=== PATIENT | female | born 1955 | race Caucasian/White ===

== ENCOUNTER → 2017-03-31 10:36 | Outpatient (CLI) | payer MEDICARE, SELFPAY ==
[2017-03-31 12:25] LABS: Alanine Aminotransferase 20 U/L (12-78); Albumin Level 3.5 gm/dL (3.4-5.0); Albumin/Globulin Ratio 0.9 (1.1-1.8); Alkaline Phosphatase 105 U/L (46-116); Anion Gap 9.1 mEq/L (5-15); Aspartate Amino Transferase 11 U/L (15-37); Bilirubin,Total 0.2 mg/dL (0.2-1.0); Blood Urea Nitrogen 14 mg/dL (7-18); Calcium 9.4 mg/dL (8.5-10.1); Carbon Dioxide 29 mmol/L (21.0-32.0); Chloride 99 mmol/L (98-107); Chol/HDL Ratio 3.9 (1-3.5); Cholesterol 166 mg/dL (140-200); Creatinine,Serum 0.72 mg/dL (0.55-1.02); Estimated Glomerular Filt Rate 82 ml/min (>60); GFR (African American) 99 ML/MIN (>60); Globulin 3.8 gm/dl (1.3-3.2); Glucose 138 mg/dL (74-106); HDL Cholesterol 43 mg/dL (29-89); Iron 35 ug/dl (28-170); LDL Cholesterol 90 mg/dL (0-130); Potassium 4.1 mmoL/L (3.5-5.1); Sodium 133 mmol/L (136-145); Thyroid Stimulating Hormone 1.93 uIU/ml (0.358-3.740); Total Protein,Serum 7.3 gm/dL (6.4-8.2); Triglycerides 165 mg/dL (30-200); VLDL Cholesterol 33 mg/dL (0-40)
[2017-04-01 20:10] LABS: Folate 4.9 ng/mL (>3.0); Vitamin B12 555 pg/mL (232-1245)
== END ==
PROVIDERS: PCP Family Medicine; Visit Provider Family Medicine
DX: E11.9 Type 2 diabetes mellitus without complications (principal); E78.5 Hyperlipidemia, unspecified; R53.83 Other fatigue; R63.4 Abnormal weight loss
CPT/HCPCS: 36415; 80053; 80061; 82607; 82746; 83036; 83540; 84443

== ENCOUNTER → 2017-05-03 17:36 | Outpatient (REF) | payer MEDICARE, SELFPAY | LOC: LAB 17:36 | PROVIDERS: Visit Provider Urology | DX: R39.89 Other symptoms and signs involving the genitourinary system (principal) | CPT/HCPCS: 87086; 87088; 87186 ==

== ENCOUNTER → 2017-05-09 13:37 | Outpatient (REF) | payer MEDICARE, SELFPAY ==
[2017-05-09 13:40] LABS: Adenovirus F 40/41, stool Not Detected (NotDetected); Astrovirus Not Detected (NotDetected); Campylobacter Not Detected (NotDetected); Cryptosporidium Not Detected (NotDetected); Cyclospora Cayetanesis Not Detected (NotDetected); Entamoeba histolytica Not Detected (NotDetected); Enteroaggregative E coli Not Detected (NotDetected); Enteropathogenic E coli Not Detected (NotDetected); Enterotoxigenic E coli Not Detected (NotDetected); Giardia lamblia Not Detected (NotDetected); Norovirus Not Detected (NotDetected); Plesimonas Shigalloides, PCR Not Detected (NotDetected); Rotavirus A Not Detected (NotDetected); Salmonella, PCR Not Detected (NotDetected); Sapovirus Not Detected (NotDetected); Shiga-like toxin E coli Not Detected (NotDetected); Shigella Enterovasive E coli Not Detected (NotDetected); Vibrio Cholerae Not Detected (NotDetected); Vibrio, PCR Not Detected (NotDetected); Yersinia Entercolitica, PCR Not Detected (NotDetected)
[2017-05-09 18:14] LABS: Clostridium Difficile A/B, PCR Detected (NotDetected)
== END ==
LOC: LAB 13:37
PROVIDERS: Visit Provider Urology
DX: R19.7 Diarrhea, unspecified (principal)
CPT/HCPCS: 87507

== ENCOUNTER 2017-06-11 22:34 | Emergency (ER) | payer MEDICARE, SELFPAY ==
[2017-06-11 22:39] VITALS: BP 118/73; PULSE 71; RESP 20; TEMP 37.8; O2SAT 94; BMI 42.4
--- NOTE | 2017-06-11 22:46 | CT_ITS ---
CT abdomen pelvis wo con COMPARISON: CT scan abdomen pelvis without contrast 06/29/2016 HISTORY: Abdominal pain for one week TECHNIQUE: Multiple axial scans obtained from hemidiaphragms the pelvic floor and were performed without IV or oral contrast. FINDINGS: The lower lung donahue are clear. The liver stomach and pancreas are grossly normal. There has been a previous cholecystectomy. There is borderline splenomegaly. The adrenal glands are normal. The kidneys are normal size and there are no calculi and is no obstructive uropathy. Small bowel is normal. The appendix is normal. There is large amount stool in the cecum and ascending and proximal transverse colon. The uterus is normal size and in the midline. Urinary bladder is partially decompressed, there is no free fluid in the pelvis. There is arteriosclerotic calcification of the abdominal aorta without aneurysm. IMPRESSION: Borderline splenomegaly no acute abdominal or intrapelvic pathology identified, I agree the [facility] report
[2017-06-11 22:58] LABS: Microscopic, Urine URINE MICROSCOPIC (MICROSCOPIC)
[2017-06-11 23:08] LABS: Appearance,Urine CLOUDY (Clear); Blood, Urine Negative (Negative); Color,Urine YELLOW (Yellow); Glucose,Urine (UA) Negative (Negative); Ketones,Urine TRACE (Negative); Leukocyte Esterase,Urine 1+ (Negative); Nitrate,Urine POSITIVE (Negative); PH,Urine 5.5 (5.0-8.5); Protein,Urine TRACE (Negative); Specific Gravity, Urine >= 1.030 (1.005-1.030); Urobilinogen,Urine 0.2 EU/dl (0.2)
[2017-06-11 23:12] LABS: Bilirubin,Urine Negative (Negative)
[2017-06-11 23:13] LABS: Bacteria,Urine 4+ /lpf; Squamous Epithelial Cell,Urine 20-50 #/hpf (0-5); WBC,Urine 50-100 #/hpf (0-3); Waxy Casts,Urine Occasional #/lpf (0)
[2017-06-11 23:33] LABS: Basophils % 0.5 % (0.1-2.0); Eosinophils # 0.1 K/mm3 (0.0-0.4); Eosinophils % 1.4 % (0.1-12.0); Hematocrit 41.4 % (37.0-47.0); Hemoglobin 13.3 g/dL (12.2-16.2); Lymphocytes % 42.1 K/mm3 (10-50); Mean Corpuscular HGB Conc 32.1 g/dL (31.8-35.4); Mean Corpuscular Hemoglobin 27.5 pg (27.0-31.2); Mean Corpuscular Volume 85.7 fl (81-99); Mean Platelet Volume 7.9 fl (7.4-10.4); Monocytes # 0.3 K/mm3 (0.1-1.0); Monocytes % 4.4 % (1.7-9.3); Neutrophils # 3.6 K/mm3 (1.8-7.8); Neutrophils % 51.5 % (37.0-80.0); Platelet Count 202 K/mm3 (142-424); Red Blood Count 4.83 M/mm3 (4.20-5.40); Red Cell Distribution Width 14.5 % (11.5-17.5); White Blood Count 7.1 K/mm3 (4.8-10.8)
[2017-06-11 23:48] LABS: Alanine Aminotransferase 35 U/L (12-78); Albumin Level 3.4 gm/dL (3.4-5.0); Albumin/Globulin Ratio 0.8 (1.1-1.8); Alkaline Phosphatase 181 U/L (46-116); Amylase 16 U/L (25-125); Anion Gap 11.8 mEq/L (5-15); Aspartate Amino Transferase 17 U/L (15-37); Bilirubin,Total 0.2 mg/dL (0.2-1.0); Blood Urea Nitrogen 11 mg/dL (7-18); Calcium 9.1 mg/dL (8.5-10.1); Carbon Dioxide 27 mmol/L (21.0-32.0); Chloride 100 mmol/L (98-107); Creatinine Clearance Estimated 46 mL/min (0-300); Creatinine,Serum 0.76 mg/dL (0.55-1.02); Estimated Glomerular Filt Rate 77 ml/min (>60); GFR (African American) 93 ML/MIN (>60); Globulin 4.5 gm/dl (1.3-3.2); Glucose 126 mg/dL (74-106); Lipase 59 u/L (73-393); Potassium 3.8 mmoL/L (3.5-5.1); Sodium 135 mmol/L (136-145); Total Protein,Serum 7.9 gm/dL (6.4-8.2)
--- NOTE | 2017-06-11 23:54 | HMH.EDNVD ---
ED Disposition Clinical Impression: Abdominal pain Qualifiers: Abdominal location: unspecified location Qualified Code(s): R10.9 - Unspecified abdominal pain UTI (urinary tract infection) Qualifiers: Urinary tract infection type: site unspecified Hematuria presence: without hematuria Qualified Code(s): N39.0 - Urinary tract infection, site not specified Disposition: Home, Self-Care Condition on Discharge: Good Instructions: DI for Acute Abdomen Additional Instructions: call dr khan tuesday am about urine culture and follow up Referrals: Reynold Khan MD [Primary Care Provider] - - Critical Care Critical Care Time: No Attestation: On 06/11/17, the high probability of a clinically significant, sudden or life threatening deterioration of the following system(s) required my full and direct attention, intervention and personal management. The time I documented below is in addition to time spent performing reported procedures but includes the following listed in this critical care notation. Medical Decision Making - Medical Records Medical records reviewed: Yes: I reviewed the patient's medical records. - Saad Inquiry Pt receiving controlled substance: No Vital Signs: 06/11/17 22:39 Temperature 100.0 F H Temperature Source Oral Pulse Rate [Right Radial] 71 Respiratory Rate 20 Blood Pressure [Right Arm] 118/73 Blood Pressure Mean [Right Arm] 88 02 Sat by Pulse Oximetry 94 L - Lab Data Lab results reviewed: Yes: I reviewed the patient's lab results. Lab Results 06/11/17 22:55: Urine Color Yellow, Urine Appearance Cloudy, Urine pH 5.5, Ur Specific [place] >= 1.030, Urine Protein Trace, Urine Glucose (UA) Negative, Urine Ketones Trace, Urine Blood Negative, Urine Nitrate Positive, Urine Bilirubin Negative, Urine Urobilinogen 0.2, Ur Leukocyte Esterase 1+ A, Urine WBC 50-100, Ur Squamous Epith Cells 20-50, Urine Bacteria 4+, Waxy Casts Occasional 06/11/17 23:25: WBC 7.1, RBC 4.83, Hgb 13.3, Hct 41.4, MCV 85.7, MCH 27.5, MCHC 32.1, RDW 14.5, Plt Count 202, MPV 7.9, Neut % (Auto) 51.5, Lymph % (Auto) 42.1, [place] % (Auto) 4.4, Eos % (Auto) 1.4, Baso % (Auto) 0.5, Neut # (Auto) 3.6, Lymph # (Auto) 3.0, [place] # (Auto) 0.3, Eos # (Auto) 0.1, Baso # (Auto) 0.0 06/11/17 23:25: Sodium 135 L, Potassium 3.8, Chloride 100, Carbon Dioxide 27, Anion Gap 11.8, BUN 11, Creatinine 0.76, Estimated Creat Clear 46, Estimated GFR 77, Est GFR ( Amer) 93, Glucose 126 H, Calcium 9.1, Total Bilirubin 0.2, AST 17, ALT 35, Alkaline Phosphatase 181 H, Total Protein 7.9, Albumin 3.4, Globulin 4.5 H, Albumin/Globulin Ratio 0.8 L, Amylase 16 L, Lipase 59 L Result diagrams: 06/11/17 23:25 06/11/17 23:25 Orders (Tests/Meds): ORDERS Category Date Time Status CT abdomen pelvis wo con Stat Cat Scan 06/11/17 22:46 Taken Urine Culture Stat Micro 06/11/17 22:55 Received - CT Data CT Scan: Abdomen, Pelvis Time Received: 00:[address] Reviewed: Yes: I have viewed the radiologist's interpretation Preliminary Findings: Normal/NAD - Physician Consults Physician Consulted: meir Reason -: Pt condition Nausea/Vomiting/Diarrhea HPI - General Chief complaint: Abdominal Pain Stated complaint: Stomach Pain Time Seen by Provider: 06/11/17 23:55 Mode of Arrival: Wheelchair Source of Information: Patient, Relative, Medical Record Limitations: Physical Limitations Description of Symptoms (Recalled from ER Triage Doc. by RN): pt states she is having abdominal pain, pt also c/o thrush. pt states she has been on antibx for her kidneys and her colon. - History of Present Illness HPI Narrative: pt with 4-5 day hx of abd pain and bloating with no fever or rash and no vomiting or diarrhea -she was on abx in recent past - she uses chronic pain meds complaint: nausea, abdominal pain Onset (ago): day(s) Associated Abdominal Pain: Yes Location of pain: periumbilical Severity: moderate Quality: sharp Consistency:
--- NOTE | 2017-06-12 00:03 | ED_ITS ---
ED Disposition Clinical Impression: Abdominal pain Qualifiers: Abdominal location: unspecified location Qualified Code(s): R10.9 - Unspecified abdominal pain UTI (urinary tract infection) Qualifiers: Urinary tract infection type: site unspecified Hematuria presence: without hematuria Qualified Code(s): N39.0 - Urinary tract infection, site not specified Disposition: Home, Self-Care Condition on Discharge: Good Instructions: DI for Acute Abdomen Additional Instructions: call dr khan tuesday am about urine culture and follow up Referrals: Reynold Khan MD [Primary Care Provider] - - Critical Care Critical Care Time: No Attestation: On 06/11/17, the high probability of a clinically significant, sudden or life threatening deterioration of the following system(s) required my full and direct attention, intervention and personal management. The time I documented below is in addition to time spent performing reported procedures but includes the following listed in this critical care notation. Medical Decision Making - Medical Records Medical records reviewed: Yes: I reviewed the patient's medical records. - Saad Inquiry Pt receiving controlled substance: No Vital Signs: 06/11/17 22:39 Temperature 100.0 F H Temperature Source Oral Pulse Rate [Right Radial] 71 Respiratory Rate 20 Blood Pressure [Right Arm] 118/73 Blood Pressure Mean [Right Arm] 88 02 Sat by Pulse Oximetry 94 L - Lab Data Lab results reviewed: Yes: I reviewed the patient's lab results. Lab Results 06/11/17 22:55: Urine Color Yellow, Urine Appearance Cloudy, Urine pH 5.5, Ur Specific [place] >= 1.030, Urine Protein Trace, Urine Glucose (UA) Negative, Urine Ketones Trace, Urine Blood Negative, Urine Nitrate Positive, Urine Bilirubin Negative, Urine Urobilinogen 0.2, Ur Leukocyte Esterase 1+ A, Urine WBC 50-100, Ur Squamous Epith Cells 20-50, Urine Bacteria 4+, Waxy Casts Occasional 06/11/17 23:25: WBC 7.1, RBC 4.83, Hgb 13.3, Hct 41.4, MCV 85.7, MCH 27.5, MCHC 32.1, RDW 14.5, Plt Count 202, MPV 7.9, Neut % (Auto) 51.5, Lymph % (Auto) 42.1 , [place] % (Auto) 4.4, Eos % (Auto) 1.4, Baso % (Auto) 0.5, Neut # (Auto) 3.6, Lymph # (Auto) 3.0, [place] # (Auto) 0.3, Eos # (Auto) 0.1, Baso # (Auto) 0.0 06/11/17 23:25: Sodium 135 L, Potassium 3.8, Chloride 100, Carbon Dioxide 27, Anion Gap 11.8, BUN 11, Creatinine 0.76, Estimated Creat Clear 46, Estimated GFR 77, Est GFR ( Amer) 93, Glucose 126 H, Calcium 9.1, Total Bilirubin 0.2, AST 17, ALT 35, Alkaline Phosphatase 181 H, Total Protein 7.9, Albumin 3.4 , Globulin 4.5 H, Albumin/Globulin Ratio 0.8 L, Amylase 16 L, Lipase 59 L Result diagrams: 06/11/17 23:25 06/11/17 23:25 Orders (Tests/Meds): ORDERS Category Date Time Status CT abdomen pelvis wo con Stat Cat Scan 06/11/17 22:46 Taken Urine Culture Stat Micro 06/11/17 22:55 Received - CT Data CT Scan: Abdomen, Pelvis Time Received: 00:[address] Reviewed: Yes: I have viewed the radiologist's interpretation Preliminary Findings: Normal/NAD - Physician Consults Physician Consulted: meir Reason -: Pt condition Nausea/Vomiting/Diarrhea HPI - General Chief complaint: Abdominal Pain Stated complaint: Stomach Pain Time Seen by Provider: 06/11/17 23:55 Mode of Arrival: Wheelchair Source of Information: Patient, Relative, Medical Record Limitations: Physical Limitations Description of Symptoms (Recalled from ER
[2017-06-12 00:50] VITALS: BP 134/70; PULSE 87; RESP 20; TEMP 37.1; O2SAT 99
== END 2017-06-12 00:55 | disposition home or self-care (01) ==
PROVIDERS: Emergency Provider Emergency Medicine; Family Provider Family Medicine; PCP Family Medicine
DX: N39.0 Urinary tract infection, site not specified (principal); Z79.84 Long term (current) use of oral hypoglycemic drugs; Z79.82 Long term (current) use of aspirin; J45.909 Unspecified asthma, uncomplicated; J44.9 Chronic obstructive pulmonary disease, unspecified; E78.5 Hyperlipidemia, unspecified; D64.9 Anemia, unspecified; F17.210 Nicotine dependence, cigarettes, uncomplicated; R10.33 Periumbilical pain
CPT/HCPCS: 74176; 80053; 81001; 82150; 83690; 85025; 87086; 87088; 87186; 96374; 96375; 99283; J2405

== ENCOUNTER → 2018-06-30 14:14 | Outpatient (CLI) | payer MEDICARE, SELFPAY ==
--- NOTE | 2018-06-30 14:20 | MM_ITS ---
MM Dig screening mamm BI w/CAD ORDERING PHYSICIAN : Reynold Khan MD PATIENT AGE: 62 years GENDER: Female COMPARISON: Bilateral mammogram March 2010 & June 2008 & A November 2007. & September 2006 INDICATION: Routine SCREENING no hormones. No new complaints Previous benign excisional biopsy/ lumpectomy right breast TECHNIQUE: Standard CC and MLO images were obtained. R2 CAD reviewed. Additional CC nipple profile views of bilaterally are quite helpful FINDINGS: There has been some progressive fatty replacement since previous studies of 2010, and 2008. Again see the fairly pronounced asymmetry of the breast . I believe there likely within a previous biopsy mid right breast RIGHT BREAST: Area Labeled A: Focal area of density medial right breastpresent since 2008 & more recent March 2010 study... It disappears/dissipates on the additional nipple profile cc view from today, which is very helpful. Thus follow-up in one year adequate with this latter nipple profile cc Area labeled B: Small 1 cm nodule at far lateral right breast is a long-standing feature is since at least 2008 & 2006 can be followed.. LEFT BREAST:. No new findings. Asymmetric area of density at the medial retroareolar left breast labeled X dissipates on the additional CC nipple profile =======IMPRESSION: . Stable areas of density at both right and left breast . No significant new areas concern Bilateral follow-up in one year would be recommended. & And would be encouraged/emphasized BI-RADS Category: 2 Benign Finding(s) RECOMMENDED FOLLOW-UP: 1YR 1 YEAR FOLLOW-UP (A letter has been sent to the patient regarding results of the study.)
--- NOTE | 2018-06-30 14:20 | XR_ITS ---
DEXA SCAN.-BONE DENSITY STUDY HIPS AND LUMBAR SPINE HISTORY: 62-year-old Postmenopausal female . .. Smoker low calcium intake takes levothyroxine Reports recurrent diarrhea TECHNIQUE: DEXA scan hip and lumbar spine The most complete data summary and color graphic presentation of the today's ( and any prior ) DEXA findings are available in PACS. Definition and treatment guidelines included. COMPARISON: None listed LUMBAR SPINE: Overall osteopenia lumbar spine with overall mean L1-L4 T score = -1.4 with BMD 1.016. Looking at individual levels the lowest T score at L2 vertebral body. With T score -2.2 with BMD0.939 g/cm sq , this reflects most pronounced osteopenia at this L2 level. HIPS: All regions average together yields normal Overall Mean Hip T Score = -0.8: with BMD 0.909 = overall normal bone density Femoral neck density is best predictor of hip fracture risk . Right femoral neck demonstrates the lowest T score -1.9 with BMD0.775 g/cm sq . . IMPRESSION 1. LUMBAR SPINE: Overall T score -1.4 lumbar spine, reflects overall osteopenia lumbar region Lowest individual lumbar vertebral bone density is at L2 with T score -2.2 2. HIPS: Overall normal bone density at hips with overall T hip score = -0.8 . Osteopenia right femoral neck noted T score = -1.9. WHO criteria for post-menopausal, Women: Normal: T-score at or above -1 SD Osteopenia: T-score between -1 and -2.5 SD Osteoporosis: T-score at or below -2.5 SD
--- NOTE | 2018-06-30 15:07 | CT_ITS ---
EXAM: CT LUNG LOW DOSE WO CONTRAST TECHNIQUE: The exam was performed on a GE Light Speed [address] scanner using 3.0 mGy CTDI. A low dose helical CT CHEST was performed on a multi-detector scanner. All CT scans at this facility use one or more dose reduction techniques, viz.: automated exposure control, ma/kV adjustment per patient size (including targeted exams where dose is matched to indication, i.e. head) or iterative reconstruction technique. The LDCT was performed in a facility that meets the criteria for the screening program. Data regarding this exam was submitted to ACR which is an approved registry. The order for this exam indicates that it came as a result of a lung cancer screening counseling shard decision-making visit that included all the elements required of such a visit including smoking cessation. The radiologist interpreting this exam meets the [facility] criteria for the LDCT lung cancer screening program. The exam is reported using the Lung-RADS classification scale and reported to the ACR registry. NOTE: This study was performed for the specific purposes of lung cancer screening and is not an alternative to diagnostic chest CT. RADIATION DOSE: CTDI vol(CT dose Index-volume) = 2.9mGy DLP (Dose Length Product) = 96.38 mGy-cm HISTORY: 1 pack per day for 45 years June 45 pack-year. Currently smoking. Patient asymmetric with no signs no symptoms of lung cancer COMPARISON: CT cervical spine August [address] abdomen 06/11/2017 includes lung bases. FINDINGS:... . LUNG NODULE SURVEY. Only Benign granuloma nodules Lung-RADS (Category2): . A small 4 mm calcified granuloma granulomas seen towards right lung base axial image 54. Not of concern. Apices are are unchanged since the previous CT C-spine 2016.] Lungs are better expanded and clear on today's study No suspicious or significant appearing lung mass or lesion. No acute cardiopulmonary disease. LUNG PARENCHYMA. Mild emphysematous changes. Mild emphysematous changes. Upper normal thickness central airways. MEDIASTINUM./VIEVK No significant mediastinal adenopathy or mass. No hilar adenopathy. Heart is normal in size, with dense coronary artery calcification involving LAD, circumflex minimal calcification right coronary. No pericardial effusion Aorta normal caliber. Pulmonary arteries upper normal. Calcification origin of the right innominate Upper abdomen. No significant findings. Spleen generous but normal and stable overall. Osseous no significant findings. No osseous lesion. Mild degenerative changes T-spine No other pertinent findings evident === IMPRESSION:== 1. Lung RADS Category: 2 benign findings .... Only benign granulomatous nodules observed ... No suspicious nodule or mass 2.... Mild emphysematous changes and COPD 3. Coronary calcification most evident LAD and circumflex.: . RECOMMENDATIONS: 12 monthd LDCT follow-up ======
== END ==
PROVIDERS: PCP Family Medicine; Visit Provider Family Medicine
DX: Z12.31 Encounter for screening mammogram for malignant neoplasm of breast (principal); Z78.0 Asymptomatic menopausal state; Z12.2 Encounter for screening for malignant neoplasm of respiratory organs; Z87.891 Personal history of nicotine dependence
CPT/HCPCS: 77067; 77080

== ENCOUNTER → 2018-07-14 11:50 | Outpatient (CLI) | payer MEDICARE, SELFPAY ==
--- NOTE | 2018-07-14 11:55 | NM_ITS ---
CARDIOLITE SPECT MYOCARDIAL PERFUSION LEXISCAN, REST AND STRESS: History: Obesity, hypertension, diabetes, tobacco use, family history, shortness of breath and syncope Procedure: Patient received a 0.4 mg of intravenous Lexiscan, resting heart rate was 80 bpm resting blood pressure 124/65, with Lexiscan maximum heart rate achieved was 1 03 bpm which is less than 85% of the maximum predicted heart rate and a blood pressure was 129/56. With Lexiscan no symptoms recorded. Electrocardiogram: Resting electrocardiogram showed sinus nonspecific ST-T changes, with Lexiscan there is less than 1.[address] segment depression noted from the baseline EKG. The EKG portion of the Lexiscan Myoview is nondiagnostic. Cardiac stress and resting SPECT images: Cardiac stress and resting SPECT images were obtained using technetium 99 Myoview 30.5 mCi stress and 10.3 mCi rest, gated SPECT further analysis of segmental wall motion and calculation of the ejection fraction also done. Cardiac stress and resting SPECT images show uniform myocardial activity without segmental perfusion abnormality, computer derived ejection fraction is 65% no regional wall motion abnormality, right ventricle is normal size and contractility. Conclusion: 1. The EKG portion of the Lexiscan Myoview is nondiagnostic. 2. No scintigraphic evidence of reversible ischemia seen, computer derived ejection fraction is 65% with no regional wall motion abnormality, right ventricle is normal size and contractility. 3. Normal Lexiscan Myoview study.
== END ==
PROVIDERS: PCP Family Medicine; Visit Provider Family Medicine
DX: R06.02 Shortness of breath (principal)
CPT/HCPCS: 78452; 93017; A9502; J2785

== ENCOUNTER → 2018-09-11 14:27 | Outpatient (POV) | payer MEDICARE, SELFPAY | PROVIDERS: PCP Family Medicine; Visit Provider Nurse Practitioner Family | DX: Z00.00 Encounter for general adult medical examination without abnormal findings (principal) ==

== ENCOUNTER → 2018-09-14 14:00 | Outpatient (CLI) | payer MEDICARE, SELFPAY ==
[2018-09-15 15:44] LABS: Adenovirus F 40/41, stool Not Detected (NotDetected); Astrovirus Not Detected (NotDetected); Campylobacter Not Detected (NotDetected); Clostridium Difficile A/B, PCR Not Detected (NotDetected); Cryptosporidium Not Detected (NotDetected); Cyclospora Cayetanesis Not Detected (NotDetected); Entamoeba histolytica Not Detected (NotDetected); Enteroaggregative E coli Not Detected (NotDetected); Enteropathogenic E coli Not Detected (NotDetected); Enterotoxigenic E coli Not Detected (NotDetected); Giardia lamblia Not Detected (NotDetected); Norovirus Not Detected (NotDetected); Plesimonas Shigalloides, PCR Not Detected (NotDetected); Rotavirus A Not Detected (NotDetected); Salmonella, PCR Not Detected (NotDetected); Sapovirus Not Detected (NotDetected); Shiga-like toxin E coli Not Detected (NotDetected); Shigella Enterovasive E coli Not Detected (NotDetected); Vibrio Cholerae Not Detected (NotDetected); Vibrio, PCR Not Detected (NotDetected); Yersinia Entercolitica, PCR Not Detected (NotDetected)
== END ==
PROVIDERS: Visit Provider Nurse Practitioner Family
DX: R19.4 Change in bowel habit (principal); R13.10 Dysphagia, unspecified; R11.2 Nausea with vomiting, unspecified; R10.84 Generalized abdominal pain; R19.7 Diarrhea, unspecified
CPT/HCPCS: 87506

== ENCOUNTER → 2018-09-15 15:47 | Outpatient (CLI) | payer MEDICARE, SELFPAY ==
[2018-09-15 16:00] LABS: Basophils # 0.1 K/mm3 (0-0.2); Basophils % 0.7 % (0.1-2.0); Eosinophils # 0.1 K/mm3 (0.0-0.4); Eosinophils % 1.4 % (0.1-12.0); Hematocrit 44.7 % (37.0-47.0); Hemoglobin 14.1 g/dL (12.2-16.2); Lymphocytes # 2.9 K/mm3 (0.7-4.5); Lymphocytes % 39.7 % (10-50); Mean Corpuscular HGB Conc 31.5 g/dL (31.8-35.4); Mean Corpuscular Hemoglobin 28.2 pg (27.0-31.2); Mean Corpuscular Volume 89.6 fl (81-99); Mean Platelet Volume 8.8 fl (7.4-10.4); Monocytes # 0.2 K/mm3 (0.1-1.0); Monocytes % 2.4 % (1.7-9.3); Neutrophils % 55.7 % (37.0-80.0); Platelet Count 216 K/mm3 (142-424); Red Blood Count 4.99 M/mm3 (4.20-5.40); Red Cell Distribution Width 15.3 % (11.5-17.5); White Blood Count 7.2 K/mm3 (4.8-10.8)
[2018-09-15 16:32] LABS: Albumin Level 3.4 gm/dL (3.4-5.0); Albumin/Globulin Ratio 0.9 (1.1-1.8); Bilirubin,Total 0.2 mg/dL (0.2-1.0); Total Protein,Serum 7.4 gm/dL (6.4-8.2)
[2018-09-15 16:43] LABS: Alanine Aminotransferase 29 U/L (12-78); Alkaline Phosphatase 136 U/L (46-116); Anion Gap 11.9 mEq/L (5-15); Aspartate Amino Transferase 15 U/L (15-37); Blood Urea Nitrogen 8 mg/dL (7-18); Calcium 8.7 mg/dL (8.5-10.1); Carbon Dioxide 29 mmol/L (21.0-32.0); Chloride 103 mmol/L (98-107); Creatinine,Serum 0.86 mg/dL (0.55-1.02); Estimated Glomerular Filt Rate 66 ml/min (>60); GFR (African American) 80 ML/MIN (>60); Glucose 165 mg/dL (74-106); Potassium 3.9 mmoL/L (3.5-5.1); Sodium 140 mmol/L (136-145)
== END ==
PROVIDERS: Visit Provider Nurse Practitioner Family
DX: R19.4 Change in bowel habit (principal); R13.10 Dysphagia, unspecified; R11.2 Nausea with vomiting, unspecified; R10.84 Generalized abdominal pain; R19.7 Diarrhea, unspecified
CPT/HCPCS: 36415; 80053; 85025

== ENCOUNTER → 2018-09-19 13:39 | Outpatient (CLI) | payer MEDICARE, SELFPAY ==
--- NOTE | 2018-09-19 13:43 | CA_ITS ---
PROCEDURE: 2-D M-mode and color Doppler study INDICATIONS FOR THE TEST: Chest pain COPD+ Heart Murmur Tobacco Smoking+ Palpitations Fatigue Syncope Edema Hypertension+Diabetes Mellitus+ Rheumatic Fever SOB CARDENAS+Obesity Hyperlipidemia+ Family History HD Additional History PATIENT INFORMATION HEIGHT: 61 WEIGHT:224 GENDER: Female B/P:114/69 2-D/M-MODE INTERPRETATION: 2-D MEASUREMENTS OBSERVED VALUES IN CMS Right Ventricular Dimension (RVDd) 2.1 Interventricular Septum (Thickness)(IVsd) 1.4 Left Ventricular Internal Dimensions(LVIDd) 4.0 Left Ventricular Posterior Wall (Thickness)(LVPWd) 0.9 Aortic Root 3.0 Aortic Cusp Separation 2.1 Left Atrial Dimensions (LAD) 2.9 2D 1. Left atrium is mildly enlarged, left ventricle is normal size, mild concentric left ventricular hypertrophy, visually estimated ejection fraction 55% with no regional wall motion abnormality. 2. The right atrium and right ventricle are mildly enlarged with normal contractility. 3. The aortic valve is minimally thickened and fibrosed. 4. The mitral and tricuspid valve leaflets are minimally thickened 5. The pulmonic valve is poorly visualized. 6. No significant pericardial effusion noted. DOPPLER INTERROGATION: Doppler interrogation of the aortic, mitral and tricuspid valvular presence of mild mitral and tricuspid regurgitation, tricuspid regurgitation jet velocity is inadequate for calculation of the right ventricular systolic pressure, grade 1 diastolic dysfunction seen with tissue Doppler evidence of raised left atrial pressure. CONCLUSION: 1. Technically difficult study because of the patient's factors and poor acoustic windows 2. Mildly enlarged left atrium, normal left ventricular size, mild concentric left ventricular hypertrophy, visually estimated ejection fraction 55% with no regional wall motion abnormality, grade 1 diastolic dysfunction seen with tissue Doppler evidence of raised left atrial pressure. 3. Mildly enlarged right ventricle with normal contractility. 4. Mild mitral and tricuspid regurgitation. 5. No significant pericardial effusion noted.
--- NOTE | 2018-09-19 13:44 | CI_ITS ---
Cerebrovascular Exam Indications: 780.2 Syncope and collapse. 780.4 Dizziness and giddiness. IMPRESSIONS 1. The bilateral vertebral arteries are patent with normal antegrade flow. 2. Study suggests less than 20% stenosis involving the right internal carotid artery. 3. Study suggests less than 20% stenosis involving the left internal carotid artery. History: Stroke. Risk factors: Hypertension. Diabetes mellitus. Carotid duplex study. Complete study and Doppler flow study including spectral analysis, color and silva scale imaging. Height: Height: 157.5cm. Height: 62in. Weight: Weight: 101.6kg. Weight: 223.5lb. Body mass index: BMI: 41kg/m^2. Body surface area: BSA: 2.16m^2. Location: Vascular laboratory. Patient status: Outpatient. Tables: Arterial flow: + +--------+--------+ Location V sys V ed + +--------+--------+ Right CCA - proximal 78.1cm/s 17cm/s + +--------+--------+ Right CCA - distal 68.9cm/s 15.6cm/s + +--------+--------+ Right ECA 72.8cm/s 15.1cm/s + +--------+--------+ Right ICA - proximal 44.5cm/s 15.6cm/s + +--------+--------+ Right ICA - mid 43.7cm/s 11.9cm/s + +--------+--------+ Right ICA - distal 76.4cm/s 28.2cm/s + +--------+--------+ Right vertebral 47.1cm/s 15.3cm/s + +--------+--------+ Left CCA - proximal 84.9cm/s 18cm/s + +--------+--------+ Left CCA - distal 76.9cm/s 14.7cm/s + +--------+--------+ Left ECA 62.3cm/s 14.1cm/s + +--------+--------+ Left ICA - proximal 39.1cm/s 13.7cm/s + +--------+--------+ Left ICA - mid 59cm/s 20.2cm/s + +--------+--------+ Left ICA - distal 55.7cm/s 18.6cm/s + +--------+--------+ Left vertebral 35.3cm/s 9.5cm/s + +--------+--------+ Velocity ratios: + + + + + + Right, V sys Right, V ed Left, V sys Left, V ed + + + + + + Max ICA/dist CCA 1.11 1.81 0.77 1.37 + + + + + + (Report amended ) Electronically signed by: Kofi Landis [id number]
== END ==
PROVIDERS: PCP Family Medicine; Visit Provider Family Medicine
DX: R06.09 Other forms of dyspnea (principal); R55 Syncope and collapse
CPT/HCPCS: 93306; 93880

== ENCOUNTER → 2018-09-22 08:47 | Outpatient (CLI) | payer MEDICARE, SELFPAY ==
--- NOTE | 2018-09-22 09:04 | CT_ITS ---
CT abdomen pelvis w con CLINICAL HISTORY: Abdominal discomfort, some nausea and vomiting TECHNIQUE: Axial images obtained with sagittal and coronal reformats. All CT scans at the facility use one or more dose reduction, viz: automated exposure control, ma/kV adjustment per patient size (including targeted exams where dose is matched to indication, i.e. head), or iterative reconstruction technique. COMPARISON: CT scan abdomen and pelvis without IV or oral contrast 06/11/2017 PROCEDURE: Oral Contrast:Redicat given IV Contrast: 75 ml IV Optiray 350 was injected intravenously. FINDINGS: Lung bases: Clear, there is no pleural fluid ABDOMEN: Liver: No masses or biliary dilatation. Gallbladder: Postcholecystectomy the common bile duct measures up to 1.3 cm in diameter but there is normal tapering of the ampullary portion without obvious retained stone or extrinsic mass noted. There is no intrahepatic biliary ductal dilatation noted. Pancreas: No masses or peripancreatic fluid collections. Spleen: There is stable borderline splenomegaly Adrenals: Unremarkable Kidneys/ureters: The kidneys are normal size and show symmetrical function following injection of contrast. Stomach bowel: The stomach duodenum and small bowel appear grossly normal. There are scattered stool and gas mixed with oral contrast throughout the colon. Peritoneum: No abnormal fluid collections. No obvious inflammatory changes. Lymph nodes: No enlarged lymph nodes apparent. Vasculature: There is moderate arteriosclerotic calcification of the lower abdominal aorta just above the bifurcation but there is no aneurysm. Bones: There are mild degenerative changes of the thoracolumbar junction and L5-S1 level. PELVIS: Reproductive: Unremarkable Bladder: Moderately decompressed, there is no free fluid in the pelvis Appendix: Not definitely visualized but there are no pericecal inflammatory changes. IMPRESSION: Stable borderline splenomegaly, stable mild common bile duct dilatation not unexpected following previous cholecystectomy
== END ==
PROVIDERS: PCP Family Medicine; Visit Provider Nurse Practitioner Family
DX: R19.4 Change in bowel habit (principal); R13.10 Dysphagia, unspecified; R11.2 Nausea with vomiting, unspecified
CPT/HCPCS: 74177; Q9967

== ENCOUNTER → 2018-10-19 08:44 | Outpatient (CLI) | payer MEDICARE, SELFPAY ==
--- NOTE | 2018-10-19 08:51 | US_ITS ---
US abdomen limited History:Upper abdominal pain Ordering Physician:Berkley Carreon APRN Patient Age: 63 years Comparison:None Findings: Pancreas:Unremarkable. No obvious mass or abnormal fluid collection. No ductal dilatation Liver:Unremarkable. No obvious mass or abnormal fluid collection. No ductal dilatation. Right Kidney:Unremarkable. Normal size and echogenicity. No hydronephrosis Gallbladder:Prior cholecystectomy. Common bile duct is normal at 5 mm. Impression:Status post cholecystectomy otherwise negative
== END ==
PROVIDERS: PCP Family Medicine; Visit Provider Nurse Practitioner Family
DX: R94.5 Abnormal results of liver function studies (principal); R10.84 Generalized abdominal pain
CPT/HCPCS: 76705

== ENCOUNTER → 2018-12-08 15:14 | Outpatient (CLI) | payer MEDICARE, SELFPAY ==
--- NOTE | 2018-12-08 15:24 | XR_ITS ---
PROCEDURE: XR LUMBAR SPINE MIN 4V CLINICAL INDICATION: SPONDYLOSIS LUMBAR REGION, left-sided low back pain COMPARISON: LS5 LUMBAR SPINE 5 VIEWS from 09/07/2016 FINDINGS: Normal alignment. No fracture or dislocation. There is mild degenerative disc disease at L5-S1 and there is mild lumbar curvature convex left. Endplate osteophytes are present at L2-L3.. There is generalized vascular calcification. IMPRESSION: Degenerative changes, no change with no acute finding. Dictated by: Kofi Landsi MD 12/08/2018 16:07 Electronically signed by Kofi Landis MD in [place] 12/08/2018 16:07
== END ==
PROVIDERS: PCP Family Medicine; Visit Provider Family Medicine
DX: M47.816 Spondylosis without myelopathy or radiculopathy, lumbar region (principal)
CPT/HCPCS: 72110

== ENCOUNTER → 2018-12-28 13:21 | Outpatient (CLI) | payer MEDICARE, SELFPAY ==
--- NOTE | 2018-12-28 13:24 | MR_ITS ---
PROCEDURE: MR HEAD/BRAIN WO CON CLINICAL INDICATION: MEMORY LOSS, LT SIDED SCIATICA Memory loss, headaches, blurred vision, dizziness COMPARISON: HDWO CT HEAD W/O CONTRAST from 09/09/2016 TECHNIQUE: Routine multiplanar multi echo sequences are performed without gadolinium enhancement. FINDINGS: No midline shift, mass effect, intracranial hemorrhage, or hydrocephalus is evident. There is mild generalized atrophy. The cerebellopontine angle, cerebellum, and brainstem are unremarkable. Normal silva-white matter differentiation with no significant white matter abnormalities apparent. No sinus air-fluid level. There is small amount fluid in the mastoid sinuses on both sides. Partial empty sella is present as a normal variant. The optic chiasm, corpus callosum, and craniocervical junction have an unremarkable appearance. IMPRESSION: 1. Mild generalized atrophy, no acute intracranial findings. 2. Bilateral mastoid sinus disease Dictated by: Kofi Landis MD 12/28/2018 18:07 Electronically signed by Kofi Landis MD in [place] 12/30/2018 07:17
--- NOTE | 2018-12-28 13:24 | MR_ITS ---
PROCEDURE: MR LUMBAR SPINE WO CON CLINICAL INDICATION: MEMORY LOSS, LT SIDED SCIATICA Left-sided low back pain with left leg and foot pain and numbness and tingling COMPARISON: XR LUMBAR SPINE MIN 4V from 12/08/2018 TECHNIQUE: Standard multiplanar multiecho sequences are performed without contrast. 3-D MIP and myelographic images are also rendered and reviewed FINDINGS: There is normal alignment. The spinal cord ends at the L1 level. 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 L1-L2: Minimal right paracentral disc protrusion. L2-L3: Unremarkable. L3-L4: Unremarkable. L4-5: Mild facet and ligamentum hypertrophy with mild bilateral lateral recess narrowing. L5-S1: Mild facet ligamentum hypertrophy with mild bilateral lateral recess narrowing. There is moderate left-sided foraminal narrowing. No disc herniation. There is some mild transverse narrowing of the canal at L5 5 S1. IMPRESSION: 1. Minimal right paracentral disc protrusion at L1-L2 2. L4-5: Mild facet and ligamentum hypertrophy with mild bilateral lateral recess narrowing. 3. L5-S1: Mild facet ligamentum hypertrophy with mild bilateral lateral recess narrowing. There is moderate left-sided foraminal narrowing 4. No extruded herniated disc Dictated by: Kofi Landis MD 12/29/2018 06:29 Electronically signed by Kofi Landis MD in [place] 12/29/2018 06:29
== END ==
PROVIDERS: PCP Family Medicine; Visit Provider Family Medicine
DX: M54.32 Sciatica, left side (principal); R41.3 Other amnesia
CPT/HCPCS: 70551; 72148; 76376

== ENCOUNTER → 2019-01-01 11:36 | Outpatient (POV) | payer MEDICARE, SELFPAY | PROVIDERS: PCP Family Medicine; Visit Provider Nurse Practitioner Family | DX: Z00.00 Encounter for general adult medical examination without abnormal findings (principal) ==

== ENCOUNTER → 2019-01-15 15:31 | Outpatient (CLI) | payer MEDICARE, SELFPAY ==
[2019-01-15 16:23] LABS: Basophils # 0.1 K/mm3 (0-0.2); Basophils % 0.7 % (0.1-2.0); Eosinophils # 0.1 K/mm3 (0.0-0.4); Eosinophils % 0.9 % (0.1-12.0); Hematocrit 40.7 % (37.0-47.0); Hemoglobin 13.1 g/dL (12.2-16.2); Lymphocytes # 2.4 K/mm3 (0.7-4.5); Lymphocytes % 37.8 % (10-50); Mean Corpuscular Hemoglobin 28.5 pg (27.0-31.2); Mean Corpuscular Volume 88.8 fl (81-99); Mean Platelet Volume 8.2 fl (7.4-10.4); Monocytes # 0.2 K/mm3 (0.1-1.0); Monocytes % 3.4 % (1.7-9.3); Neutrophils # 3.7 K/mm3 (1.8-7.8); Neutrophils % 57.2 % (37.0-80.0); Platelet Count 170 K/mm3 (142-424); Red Blood Count 4.59 M/mm3 (4.20-5.40); Red Cell Distribution Width 13.7 % (11.5-17.5); White Blood Count 6.4 K/mm3 (4.8-10.8)
[2019-01-15 16:33] LABS: INR 1.02 (0.9-1.1); Prothrombin Time 10.6 seconds (9.4-11.8)
[2019-01-15 18:34] LABS: Alanine Aminotransferase 6 U/L (12-78); Albumin Level 3.3 gm/dL (3.4-5.0); Albumin/Globulin Ratio 0.8 (1.1-1.8); Alkaline Phosphatase 86 U/L (46-116); Anion Gap 12.9 mEq/L (5-15); Aspartate Amino Transferase 5 U/L (15-37); Bilirubin,Total 0.2 mg/dL (0.2-1.0); Blood Urea Nitrogen 9 mg/dL (7-18); Calcium 9.1 mg/dL (8.5-10.1); Carbon Dioxide 29 mmol/L (21.0-32.0); Chloride 102 mmol/L (98-107); Creatinine,Serum 0.63 mg/dL (0.55-1.02); Estimated Glomerular Filt Rate 95 ml/min (>60); Ferritin 10 ng/mL (8-388); GFR (African American) 115 ML/MIN (>60); Glucose 117 mg/dL (74-106); Potassium 3.9 mmoL/L (3.5-5.1); Sodium 140 mmol/L (136-145); Total Protein,Serum 7.3 gm/dL (6.4-8.2)
[2019-01-17 08:14] LABS: Ceruloplasmin 29.5 mg/dL (19.0-39.0); Immunoglobulin A, Qn 378 mg/dL (87-352); Immunoglobulin G, Qn 1248 mg/dL (700-1600); Iron 27 ug/dL (27-139); Iron Saturation 8 % (15-55); UIBC 328 ug/dL (118-369)
[2019-01-17 10:34] LABS: Hep A Ab, IgM Negative (Negative); Hepatitis B Core Antibody IgM Negative (Negative); Hepatitis B Surface Antigen Negative (Negative)
[2019-01-17 16:23] LABS: Angiotensin Converting Enzyme 37 U/L (14-82)
[2019-01-18 11:06] LABS: Actin (Smooth Muscle) Antibody 29 Units (0-19); Antinuclear Antibodies, IFA Negative (.); Deamidated Gliadin Abs, IgA 57 units (0-19); Deamidated Gliadin Abs, IgG 4 units (0-19); Endomysial IgA Antibody Negative (Negative); Hepatitis C Antibody <0.1 s/co ratio (0.0-0.9); Immunoglobulin M, Qn 278 mg/dL (26-217); Liver-Kidney Microsomal Ab 4.2 Units (0.0-20.0); Mitochondrial (M2) Antibody <20.0 Units (0.0-20.0); Tissue Transglutaminase IgA Ab 2 U/mL (0-3); Tissue Transglutaminase IgG Ab 11 U/mL (0-5)
[2019-01-19 08:28] LABS: Reticulin IgA Antibody Negative titer (Neg:<1:2.5)
[2019-01-22 14:33] LABS: Alpha-1-Antitrypsin 157 mg/dL (101-187)
== END ==
PROVIDERS: Visit Provider Nurse Practitioner Family
DX: K71.8 Toxic liver disease with other disorders of liver (principal); K76.0 Fatty (change of) liver, not elsewhere classified; R94.5 Abnormal results of liver function studies; R19.7 Diarrhea, unspecified
CPT/HCPCS: 36415; 80053; 80074; 81256; 82103; 82104; 82164; 82390; 82728; 82784; 83516; 83540; 83550; 85025; 85610; 86038; 86255; 86256; 86376

== ENCOUNTER 2019-01-30 19:53 | Inpatient (IN) ==
[2019-01-30 20:31] LABS: Basophils % 0.3 % (0.1-2.0); Eosinophils # 0.2 K/mm3 (0.0-0.4); Eosinophils % 1.8 % (0.1-12.0); Hematocrit 46.5 % (37.0-47.0); Hemoglobin 14.6 g/dL (12.2-16.2); Lymphocytes # 2.6 K/mm3 (0.7-4.5); Lymphocytes % 26.5 % (10-50); Mean Corpuscular HGB Conc 31.5 g/dL (31.8-35.4); Mean Corpuscular Volume 88.1 fl (81-99); Mean Platelet Volume 7.7 fl (7.4-10.4); Monocytes # 0.3 K/mm3 (0.1-1.0); Monocytes % 3.1 % (1.7-9.3); Neutrophils # 6.7 K/mm3 (1.8-7.8); Neutrophils % 68.2 % (37.0-80.0); Platelet Count 189 K/mm3 (142-424); Red Blood Count 5.27 M/mm3 (4.20-5.40); Red Cell Distribution Width 13.9 % (11.5-17.5); White Blood Count 9.8 K/mm3 (4.8-10.8)
[2019-01-30 20:42] LABS: Anion Gap 8.8 mEq/L (5-15); Calcium 9.3 mg/dL (8.5-10.1)
[2019-01-30 20:47] LABS: ABG Base Excess -0.1 mmol/L (-2.4-2.3); ABG HCO3 25.9 mmhg (22.0-26.0); ABG Oxygen Saturation 94 % (90-100); ABG PH 7.33 mmol/L (7.35-7.45); ABG TCO2 27.5 mmhg (23-27)
[2019-01-30 20:48] LABS: Allen's Test ACCEPTABLE; Oxygen 36 %
[2019-01-30 20:50] LABS: ABG PCO2 50.9 mmhg (35.0-45.0)
--- NOTE | 2019-01-30 20:54 | Emergency Department Note ---
ED Disposition Clinical Impression: Acute exacerbation of chronic obstructive airways disease Community acquired pneumonia Qualifiers: Laterality: right Lung location: lower lobe of lung Qualified Code(s): J18.9 - Pneumonia, unspecified organism Disposition: Admitted as Observation Condition on Discharge: Good Referrals: Reynold Khan MD [Primary Care Provider] - - Critical Care Critical Care Time: No Attestation: On 01/30/19, the high probability of a clinically significant, sudden or life threatening deterioration of the following system(s) required my full and direct attention, intervention and personal management. The time I documented below is in addition to time spent performing reported procedures but includes the following listed in this critical care notation. Medical Decision Making - Medical Records Medical records reviewed: Yes: I reviewed the patient's medical records. - Saad Inquiry Pt receiving controlled substance: No Vital Signs: 01/30/19 19:54 Temperature 98.8 F Temperature Source Oral Pulse Rate [Left Radial] 82 Respiratory Rate 20 Blood Pressure [Right Arm] 149/94 H Blood Pressure Mean [Right Arm] 112 Blood Pressure Source [Right Arm] Automatic Cuff Blood Pressure Position [Right Arm] Sitting 02 Sat by Pulse Oximetry 92 L Oxygen Delivery Method Nasal Cannula Oxygen Flow Rate (LPM) 4 - Lab Data Lab results reviewed: Yes: I reviewed the patient's lab results. Lab Results 01/30/19 20:15: Specimen Source Left radial, O2 % 36, ABG pH 7.33 L, ABG pCO2 50.9 H, ABG pO2 72.0 L, ABG HCO3 25.9, ABG Total CO2 27.5 H, ABG O2 Saturation 94, ABG Base Excess -0.1, Kofi Test Acceptable 01/30/19 20:15: ESR 57 H 01/30/19 20:15: Troponin I < 0.02, C-Reactive Protein 3.4 H 01/30/19 20:15: WBC 9.8, RBC 5.27, Hgb 14.6, Hct 46.5, MCV 88.1, MCH 27.7, MCHC 31.5 L, RDW 13.9, Plt Count 189, MPV 7.7, Neut % (Auto) 68.2, Lymph % (Auto) 26.5, [place] % (Auto) 3.1, Eos % (Auto) 1.8, Baso % (Auto) 0.3, Neut # (Auto) 6.7, Lymph # (Auto) 2.6, [place] # (Auto) 0.3, Eos # (Auto) 0.2, Baso # (Auto) 0.0 01/30/19 20:15: Sodium 137, Potassium 3.8, Chloride 101, Carbon Dioxide 31, Anion Gap 8.8, BUN 10, Creatinine 0.75, Estimated Creat Clear 89, Estimated GFR 78, Est GFR ( Amer) 94, Glucose 163 H, Calcium 9.3 01/30/19 20:15: Lactate 1.2 01/30/19 20:15: Total Bilirubin 0.2, Direct Bilirubin 0.1, Indirect Bilirubin 0.1, AST 10 L, ALT 12, Alkaline Phosphatase 102, Total Protein 8.9 H, Albumin 3.6 Result diagrams: 01/30/19 20:15 01/30/19 20:15 Orders (Tests/Meds): ED MEDICATIONS Discontinued Medications Generic Name Dose Route Start Last Admin Trade Name Freq PRN Reason Stop Dose Admin Albuterol/Ipratropium 3 ml 01/30/19 20:18 01/30/19 20:38 Duoneb 3ml Neb IH 01/30/19 20:19 3 ml ONCE ONE Administration Ioversol 70 ml 01/30/19 21:34 01/30/19 21:36 Rad-Optiray 350 100ml Vial IV 01/30/19 21:35 70 ml ONCE ONE Administration Protocol Methylprednisolone Sodium Succinate 125 mg 01/30/19 20:18 01/30/19 20:38 Solu-Medrol 125mg/2ml Vial IV 01/30/19 20:19 125 mg ONCE ONE Administration Sodium Chloride 40 ml 01/30/19 21:34 01/30/19 21:36 Rad-Ns 50ml Vial IV 01/30/19 21:35 40 ml ONCE ONE Administration Sodium Chloride 10 ml 01/30/19 21:34 01/30/19 21:36 Rad-Saline Flush 10ml Syringe IV 01/30/19 21:35 10 ml ONCE ONE Administration ORDERS Category Date Time Status CT Chest w/PE protocol [CT angio chest] Stat Cat Scan 01/30/19 21:04 Taken XR chest portable Stat Exams 01/30/19 20:17 Taken Urinalysis and Microscopic Stat Lab 01/30/19 20:15 Ordered Blood Culture Stat Micro 01/30/19 20:15 Received - Radiology Data #1 Image(s): Chest Image Reviewed: Yes I reviewed the patient's radiology image Preliminary Findings: Abnormal - CT Data CT Scan: Chest Time Received: 21:[address] Reviewed: Yes: I have viewed the radiologist's interpretation Preliminary Findings: Abnormal (cap, no pe ) - ECG Data Tracing #1 Normal Sinus Rhythm: Yes Ischemic changes: non-specific ST-T wave changes - Physician Consults Physician Consulted: lynne Reason -: Admission Resp/SOB HPI - General Chief Complaint: Shortness of Breath/Dyspnea Stated Complaint: SOB Time Seen by Provider: 01/30/19 20:53 Mode of Arrival: Wheelchair Source of Information: Patient, Relative, Medical Record Limitations: Physical Limitations Description of Symptoms (Recalled from ER Triage Doc. by RN): pt stated she started getting SOB today and has progressively gotten worse T/O the day. 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 - pt with no chest pain and has no hx of pul emboli - positive tob - MD Complaint: shortness of breath Onset (ago): day(s) Severity: moderate Known history of: COPD Associated symptoms: denies other symptoms Treatment prior to arrival: none - Related Data Home oxygen amount: none Home Medications Medication Instructions Recorded Confirmed furosemide 40 mg tablet 40 mg PO ONCE PRN 03/10/17 11/06/18 levothyroxine 25 mcg capsule 25 mcg PO DAILY cap 03/10/17 11/06/18 metformin 1,000 mg tablet 500 mg PO HS 03/10/17 11/06/18 omeprazole 40 mg capsule,delayed 40 mg PO BID 03/10/17 11/06/18 release potassium chloride ER 10 mEq 10 meq PO QDAY PRN 03/10/17 11/06/18 tablet,extended release sertraline 100 mg tablet 100 mg PO BID tab 03/10/17 11/06/18 trazodone 300 mg tablet 300 mg PO QHS 03/10/17 11/06/18 diazepam 10 mg tablet 10 mg PO QIDP PRN tab 05/03/17 11/06/18 hydrocodone 10 mg-acetaminophen 1 tab PO Q6H 05/03/17 11/06/18 325 mg tablet rosuvastatin 10 mg tablet 20 mg PO ONCE 05/03/17 11/06/18 Atenolol [Atenolol 25mg Tab] 25 mg PO DAILY 10/05/17 11/06/18 Cholecalciferol (Vitamin D3) 50,000 unit PO WEEKLY 07/18/18 11/06/18 [Vitamin D3 50,000 unit Cap] Allergies Allergy/AdvReac Type Severity Reaction Status Date / Time nickel Allergy Intermediate I-RASH Verified 01/30/19 20:31 silk Allergy Mild I-RASH Verified 01/30/19 20:31 cefaclor Allergy Unknown RASH/DIFF Verified 01/30/19 20:31 BREATHING ibuprofen Allergy Unknown NA-NAUSEA/V Verified 01/30/19 20:31 OMITING levofloxacin [From Levaquin] Allergy Unknown Unknown Verified 01/30/19 20:31 allergy reaction morphine Allergy Unknown "BOTTOMS Verified 01/30/19 20:31 OUT UP" nitrofurantoin Allergy Unknown Unknown Verified 01/30/19 20:31 [From MACROBID] allergy reaction Sulfa (Sulfonamide Allergy Unknown Unknown Verified 01/30/19 20:31 Antibiotics) allergy reaction SURGICAL STEEL Allergy Intermediate I-RASH Uncoded 03/01/17 14:04 - Well's Criteria PE Score Clinical signs/symptoms of DVT: No PE is #1 diagnosis or equally likely: Yes Heart rate is > 100: No Immobile at least 3 days, or surgery in past 4 wks: No Previously, obj. diagnosed PE or DVT: No Hemoptysis: No Malignancy w/Rx within 6mo, or palliative: No PE Score: 3 [facility] History - Hepatitis A Screen Drug use history?: No High risk sexual behaviors?: No History of sexually transmitted infection?: No Currently employed?: No Childcare worker?: No Do you have indoor plumbing?: Yes Do you have electricity?: Yes Attestation statement:: This patient has been screened for Hepatitis A risk factors. I have reviewed the patient's past medical history: Yes Medical History: Reports:: Asthma, Chronic Obstructive Pulmonary Disease (COPD), Diabetes Mellitus Type 2, Hyperlipidemia, Hypertension Denies:: Cancer, Diabetes Mellitus Type 1, Internal Pacemaker, Lung Disease, MRSA, Seizures Other Medical History: Reports: Anemia, Arthritis, Other (STROKE) Laterality Cases: Left: Arthroscopy Knee, Right: Breast Biopsy Other Surgeries: Yes: Colonoscopy, (X 2), Other (GALLBLADDER,CYSTOS COPY WITH URETERAL DIL.,CYSTO WITH LEFT RETROGRADE PYELOG). No: Pacemaker Amputation: No Fractures: No - Social History Smoking Status: Current every day smoker Tobacco Type: cigarettes # Packs/Day (cigarettes): 1 Alcohol Intake: never Substance Use Type: denies use Occupational Status: retired Household Members: friend(s) Family Hx:: Cancer, Hyperlipidemia ROS Obtained: Yes All systems reviewed & no additional complaints - Constitutional Constitutional: Denies fever(s), Reports weakness - Eyes Eyes: Denies change in vision - ENT Ears, Nose, Mouth, and Throat: Denies sore throat - Cardiovascular Cardiovascular: Reports as per HPI, Denies chest pain, Reports dyspnea - Respiratory Respiratory: Yes as per HPI, Yes non-productive cough, No coughing up blood, No pain on inspiration - Gastrointestinal Gastrointestingal: Denies: abdominal pain - Genitourinary Female Genitourinary: Denies hematuria - Musculoskeletal Musculoskeletal: Denies joint pain - Integumentary/Breasts Skin/Breast: Denies rash - Neurologic Neurologic: Denies focal weakness, Denies headache(s), Denies seizure-like activity Physical Exam - General General appearance: alert - Head Head exam: normocephalic - Eye Eye exam: Present: PERRL, EOMI, scleral icterus - ENT ENT exam: Present: mucous membranes dry - Neck Neck exam: Present: trachea midline - Respiratory Respiratory exam: Present: other (dec bs bilat ). Absent: respiratory distress - Cardiovascular Cardiovascular exam: Present: regular rate, systolic murmur, +S4 - Extremities Exam Extremities exam: Present: pedal edema. Absent: calf tenderness - Neurological Exam Neurological exam: Present: alert, oriented X3, CN II-XII intact - Psychiatric Psychiatric exam: Present: normal affect - Skin Skin exam: Absent: rash
[2019-01-30 21:03] LABS: Albumin Level 3.6 gm/dL (3.4-5.0); Bilirubin,Direct 0.1 mg/dL (0.0-0.2); Bilirubin,Indirect 0.1 mg/dL (0.0-0.9); Bilirubin,Total 0.2 mg/dL (0.2-1.0); Total Protein,Serum 8.9 gm/dL (6.4-8.2)
[2019-01-30 21:22] LABS: C-Reactive Protein 3.4 mg/dL (0.0-0.9)
[2019-01-31 04:29] LABS: Basophils % 0.2 % (0.1-2.0); Eosinophils % 0.5 % (0.1-12.0); Hematocrit 39.6 % (37.0-47.0); Lymphocytes # 0.9 K/mm3 (0.7-4.5); Lymphocytes % 18.1 % (10-50); Mean Corpuscular Volume 87.5 fl (81-99); Mean Platelet Volume 8.3 fl (7.4-10.4); Monocytes # 0.1 K/mm3 (0.1-1.0); Monocytes % 1.5 % (1.7-9.3); Neutrophils # 4.1 K/mm3 (1.8-7.8); Neutrophils % 79.7 % (37.0-80.0); Platelet Count 158 K/mm3 (142-424); Red Blood Count 4.53 M/mm3 (4.20-5.40); Red Cell Distribution Width 13.9 % (11.5-17.5); White Blood Count 5.2 K/mm3 (4.8-10.8)
[2019-01-31 04:34] LABS: Anion Gap 9.4 mEq/L (5-15); Calcium 9.1 mg/dL (8.5-10.1)
[2019-01-31 05:00] LABS: Hemoglobin 12.8 g/dL (12.2-16.2)
--- NOTE | 2019-01-31 07:19 | Pharmacy Consult Notes ---
[facility] Pharm[facility] VTE Monitoring - Patient Demographics Admission date: 01/31/19 Report Date: 01/31/19 Time: 07:18 Allergies/Adverse Reactions: Patient Allergies nickel Allergy (Intermediate, Verified 01/30/19:) I-RASH silk Allergy (Mild, Verified 01/30/19 20:) I-RASH cefaclor Allergy (Unknown, Verified 01/30/19 20:) RASH/DIFF BREATHING ibuprofen Allergy (Unknown, Verified 01/30/19 20:31) NA-NAUSEA/VOMITING levofloxacin [From Levaquin] Allergy (Unknown, Verified 01/30/19:) Unknown allergy reaction morphine Allergy (Unknown, Verified 01/30/19 20:) "BOTTOMS OUT UP" nitrofurantoin [From MACROBID] Allergy (Unknown, Verified 01/30/19) Unknown allergy reaction Sulfa (Sulfonamide Antibiotics) Allergy (Unknown, Verified 01/30/19:) Unknown allergy reaction SURGICAL STEEL Allergy (Intermediate, Uncoded 03/01/17 14:04) I-RASH Height: 1.57 m Weight: 94.971 kg Patient Problems: Current Active Problems Acute exacerbation of chronic obstructive airways disease (Acute) Community acquired pneumonia (Acute) - VTE Risk Labs: VTE Related Lab Results Hgb 12.8 g/dL (12.2-16.2) D 01/31/19 04:10 Hct 39.6 % (37.0-47.0) 01/31/19 04:10 Plt Count 158 K/mm3 (142-424) 01/31/19 04:10 BUN 8 mg/dL (7-18) 01/31/19 04:10 Creatinine 0.61 mg/dL (0.55-1.02) 01/31/19 04:10 Estimated Creat Clear 85 mL/min (50-200) 01/31/19 04:10 Was VTE Risk Assessment Performed: Yes VTE Score: 9 VTE Risk Level: Moderate Risk Clinical Trial Participant: No - Prophylaxis VTE Prophylaxis Ordered?: Yes Types of VTE Prophylaxis: TEDS Knee High
--- NOTE | 2019-01-31 08:49 | History & Physical Report ---
*Admission Date: 01/31/19 <Lisset Ray 01/31/19 09:05> *Chief complaint: Shortness of breath <Lisset Ray 01/31/19 09:05> *History of present illness: Ms. Dominguez is a 63-year-old female with history of chronic asthma, COPD, tobacco use disorder, diabetes mellitus, hypertension, chronic back pain, hypothyroidism, GERD, and depression who has not felt well for the past 2 to 3 days. She describes weakness and shortness of breath. She has also had a cough which became worse yesterday and she had more difficulty with breathing. Last night she had palpitations along with labored respiratory effort. Her caregiver had her brought to the hospital emergency room for evaluation. Evaluation in the emergency room she was found to have decrease in her O2 sats. She was felt to have pneumonia and was admitted for further evaluation and treatment. This morning patient states she does feel better. She says the oxygen and breathing treatments have helped. She ate minimal breakfast. She states she just does not have an appetite. <Lisset Ray 01/31/19 09:05> [facility] History Medical History: Reports:: Asthma, Congestive Heart Failure, Chronic Obstructive Pulmonary Disease (COPD), Depression, Diabetes Mellitus Type 2, Gastroesophageal Reflux Disease(GERD), Hyperlipidemia, Hypertension Denies:: Cancer, Diabetes Mellitus Type 1, Internal Pacemaker, Lung Disease, MRSA, Seizures <Lisset Ray 01/31/19 09:05> *Have you ever received a pneumonia vaccine?: Yes <Lisset Ray 01/31/19 09:05> *Have you received a flu vaccine this season?: Yes <Lisset Ray 01/31/19 09:05> Other Medical History: Reports: Anemia, Arthritis, Hypothyroidism, Other (STROKE) <Lisset Ray 01/31/19 09:05> Laterality Cases: Left: Arthroscopy Knee, Right: Breast Biopsy <Lisset Ray 01/31/19 09:05> Other Surgeries: Yes: Cholecystectomy, Colonoscopy, , Other (GALLBLADDER,CYSTOSCOPY WITH URETERAL DIL.,CYSTO WITH LEFT RETROGRADE PYELOG). No: Pacemaker <Lisset Ray 01/31/19 09:05> Amputation: No <Lisset Ray 01/31/19 09:05> Fractures: No <Lisset Ray 01/31/19 09:05> - *Social History Smoking Status: Current every day smoker <Lisset Ray 01/31/19 09:05> Tobacco Type: cigarettes <Lisset Ray 01/31/19 09:05> # Packs/Day (cigarettes): 1 <Lisset Ray 01/31/19 09:05> Alcohol Intake: never <Lisset Ray 01/31/19 09:05> Substance Use Type: denies use <CoryLisset 01/31/19 09:05> *Occupational Status:: retired <CoryLisset 01/31/19 09:05> Housing: house <CoryLisset 01/31/19 09:05> Household Members: family, friend(s) <CoryLisset 01/31/19 09:05> *Travel in the last 8 weeks: None <CoryLisset 01/31/19 09:05> Family Hx:: Cancer, Diabetes, Heart Attack, Hyperlipidemia, Kidney Disease <CoryLisset 01/31/19 09:05> Review of Systems - Constitutional Reports headache(s), Reports weakness <Lisset Ray 01/31/19 09:05> - Eyes Denies change in vision <CoryLisset 01/31/19 09:05> - ENT Reports dizziness, Reports headache(s), Denies ear pain, Denies sore throat <RayLisset 01/31/19 09:05> - *Cardiovascular Reports shortness of breath, Reports leg swelling, Reports rapid, pounding, or irregular heartbeat, Denies chest pain <RayLisset 01/31/19 09:05> - *Respiratory Reports cough, Reports shortness of breath, Denies chest congestion <RayLisset 01/31/19 09:05> - *Gastrointestinal Reports abdominal pain, Reports bloating, Reports loose stools (She describes as watery 5-6 times daily), Reports heartburn, Denies vomiting blood, Denies black, tarry stools, Denies vomiting <Ray,Lisset 01/31/19 09:05> - *Genitourinary Reports difficulty urinating (Decrease in urinary output) <Lisset Ray - 01/31/19 09:05> - *Musculoskeletal Comments: Walks with a cane <Lisset Ray - 01/31/19 09:05> - *Neurologic Reports dizziness, Reports weakness, Denies localized weakness, Denies headache(s), Denies seizure-like activity <Lisset Ray - 01/31/19 09:05> Comments: Describes events where she stares off into space without loss of consciousness to 3 times weekly <Ryann Rayhy - 01/31/19 09:05> Meds Home Medications Medication Instructions Recorded Confirmed Type furosemide 40 mg tablet 60 mg PO ONCE PRN 03/10/17 01/31/19 History omeprazole 40 mg capsule,delayed 40 mg PO BID 03/10/17 01/30/19 History release sertraline 100 mg tablet 100 mg PO BID tab 03/10/17 01/30/19 History diazepam 10 mg tablet 10 mg PO QIDP PRN tab 05/03/17 01/30/19 History hydrocodone 10 mg-acetaminophen 1 tab PO Q6H 05/03/17 01/30/19 History 325 mg tablet Atenolol [Atenolol 25mg Tab] 25 mg PO DAILY 10/05/17 01/30/19 History Cholecalciferol (Vitamin D3) 50,000 unit PO WEEKLY 07/18/18 01/30/19 History [Vitamin D3 50,000 unit Cap] Dicyclomine HCl [Bentyl 10mg 10 mg PO Q6HP PRN 01/31/19 01/31/19 History capsule] Fluticasone Propionate 1 spray NOSTRIL-B DAILY 01/31/19 01/31/19 History Levothyroxine Sodium 50 mcg PO DAILY 01/31/19 01/31/19 History [Levothyroxine 50mcg (0.05mg) Tab] Metformin HCl 500 mg PO HS 01/31/19 01/31/19 History Potassium Chloride [Micro-K 10mEq 10 meq PO DAILY 01/31/19 01/31/19 History cap] Rosuvastatin Calcium 20 mg PO HS 01/31/19 01/31/19 History Trazodone HCl 300 mg PO HS 01/31/19 01/31/19 History <Reynold Khan - 01/31/19 09:25> Allergies Allergy/AdvReac Type Severity Reaction Status Date / Time nickel Allergy Intermediate I-RASH Verified 01/30/19 20:31 silk Allergy Mild I-RASH Verified 01/30/19 20:31 cefaclor Allergy Unknown RASH/DIFF Verified 01/30/19 20:31 BREATHING ibuprofen Allergy Unknown NA-NAUSEA/V Verified 01/30/19 20:31 OMITING levofloxacin [From Levaquin] Allergy Unknown Unknown Verified 01/30/19 20:31 allergy reaction morphine Allergy Unknown "BOTTOMS Verified 01/30/19 20:31 OUT UP" nitrofurantoin Allergy Unknown Unknown Verified 01/30/19 20:31 [From MACROBID] allergy reaction Sulfa (Sulfonamide Allergy Unknown Unknown Verified 01/30/19 20:31 Antibiotics) allergy reaction SURGICAL STEEL Allergy Intermediate I-RASH Uncoded 03/01/17 14:04 <BillReynold Michael - 01/31/19 09:25> Exam Vital signs and Labs for Last 24 Hours: Temp Pulse Resp BP Pulse Ox 99.4 F 68 18 126/67 92 L 01/31/19 08:00 01/31/19 08:00 01/31/19 08:00 01/31/19 08:00 01/31/19 08:00 Laboratory Results - last 24 hr 01/30/19 20:15: Specimen Source Left radial, O2 % 36, ABG pH 7.33 L, ABG pCO2 50.9 H, ABG pO2 72.0 L, ABG HCO3 25.9, ABG Total CO2 27.5 H, ABG O2 Saturation 94, ABG Base Excess -0.1, Kofi Test Acceptable 01/30/19 20:15: ESR 57 H 01/30/19 20:15: Troponin I < 0.02, C-Reactive Protein 3.4 H 01/30/19 20:15: WBC 9.8, RBC 5.27, Hgb 14.6, Hct 46.5, MCV 88.1, MCH 27.7, MCHC 31.5 L, RDW 13.9, Plt Count 189, MPV 7.7, Neut % (Auto) 68.2, Lymph % (Auto) 26.5, Rogers % (Auto) 3.1, Eos % (Auto) 1.8, Baso % (Auto) 0.3, Neut # (Auto) 6.7, Lymph # (Auto) 2.6, Rogers # (Auto) 0.3, Eos # (Auto) 0.2, Baso # (Auto) 0.0 01/30/19 20:15: Sodium 137, Potassium 3.8, Chloride 101, Carbon Dioxide 31, Anion Gap 8.8, BUN 10, Creatinine 0.75, Estimated Creat Clear 89, Estimated GFR 78, Est GFR ( Amer) 94, Glucose 163 H, Calcium 9.3 01/30/19 20:15: Lactate 1.2 01/30/19 20:15: Total Bilirubin 0.2, Direct Bilirubin 0.1, Indirect Bilirubin 0.1, AST 10 L, ALT 12, Alkaline Phosphatase 102, Total Protein 8.9 H, Albumin 3.6 01/31/19 01:05: Troponin I < 0.02 01/31/19 04:10: Troponin I < 0.02 01/31/19 04:10: WBC 5.2 D, RBC 4.53, Hgb 12.8 D, Hct 39.6, MCV 87.5, MCH 28.0, MCHC 32.0, RDW 13.9, Plt Count 158, MPV 8.3, Neut % (Auto) 79.7, Lymph % (Auto) 18.1, Rogers % (Auto) 1.5 L, Eos % (Auto) 0.5, Baso % (Auto) 0.2, Neut # (Auto) 4.1, Lymph # (Auto) 0.9, Rogers # (Auto) 0.1, Eos # (Auto) 0.0, Baso # (Auto) 0.0 01/31/19 04:10: Sodium 137, Potassium 4.4, Chloride 104, Carbon Dioxide 28, Anion Gap 9.4, BUN 8, Creatinine 0.61, Estimated Creat Clear 85, Estimated GFR 99, Est GFR ( Amer) 119 D, Glucose 178 H, Calcium 9.1, Magnesium 1.8 <Reynold Khan Michael - 01/31/19 09:25> Temp Pulse Resp BP Pulse Ox 98.2 F 70 18 132/66 92 L 01/31/19 04:00 01/31/19 08:00 01/31/19 04:00 01/31/19 04:00 01/31/19 06:05 Laboratory Results - last 24 hr 01/30/19 20:15: Specimen Source Left radial, O2 % 36, ABG pH 7.33 L, ABG pCO2 50.9 H, ABG pO2 72.0 L, ABG HCO3 25.9, ABG Total CO2 27.5 H, ABG O2 Saturation 94, ABG Base Excess -0.1, Kofi Test Acceptable 01/30/19 20:15: ESR 57 H 01/30/19 20:15: Troponin I < 0.02, C-Reactive Protein 3.4 H 01/30/19 20:15: WBC 9.8, RBC 5.27, Hgb 14.6, Hct 46.5, MCV 88.1, MCH 27.7, MCHC 31.5 L, RDW 13.9, Plt Count 189, MPV 7.7, Neut % (Auto) 68.2, Lymph % (Auto) 26.5, Rogers % (Auto) 3.1, Eos % (Auto) 1.8, Baso % (Auto) 0.3, Neut # (Auto) 6.7, Lymph # (Auto) 2.6, Rogers # (Auto) 0.3, Eos # (Auto) 0.2, Baso # (Auto) 0.0 01/30/19 20:15: Sodium 137, Potassium 3.8, Chloride 101, Carbon Dioxide 31, Anion Gap 8.8, BUN 10, Creatinine 0.75, Estimated Creat Clear 89, Estimated GFR 78, Est GFR ( Amer) 94, Glucose 163 H, Calcium 9.3 01/30/19 20:15: Lactate 1.2 01/30/19 20:15: Total Bilirubin 0.2, Direct Bilirubin 0.1, Indirect Bilirubin 0.1, AST 10 L, ALT 12, Alkaline Phosphatase 102, Total Protein 8.9 H, Albumin 3.6 01/31/19 01:05: Troponin I < 0.02 01/31/19 04:10: Troponin I < 0.02 01/31/19 04:10: WBC 5.2 D, RBC 4.53, Hgb 12.8 D, Hct 39.6, MCV 87.5, MCH 28.0, MCHC 32.0, RDW 13.9, Plt Count 158, MPV 8.3, Neut % (Auto) 79.7, Lymph % (Auto) 18.1, Rogers % (Auto) 1.5 L, Eos % (Auto) 0.5, Baso % (Auto) 0.2, Neut # (Auto) 4.1, Lymph # (Auto) 0.9, Rogers # (Auto) 0.1, Eos # (Auto) 0.0, Baso # (Auto) 0.0 01/31/19 04:10: Sodium 137, Potassium 4.4, Chloride 104, Carbon Dioxide 28, Anion Gap 9.4, BUN 8, Creatinine 0.61, Estimated Creat Clear 85, Estimated GFR 99, Est GFR ( Amer) 119 D, Glucose 178 H, Calcium 9.1, Magnesium 1.8 <Lisset Ray - 01/31/19 09:05> I & O for Last 24 hours: Intake & Output 01/28/19 01/29/19 01/30/19 01/31/19 11:59 11:59 11:59 11:59 Intake Total 955 / 955 Balance 955 / 955 Weight 209 lb 6 oz <Reynold Khan - 01/31/19 09:25> Intake & Output 01/28/19 01/29/19 01/30/19 01/31/19 11:59 11:59 11:59 11:59 Intake Total 595 / 595 Balance 595 / 595 Weight 209 lb 6 oz <Lisset Ray - 01/31/19 09:05> Radiology Reports for the Last 24 Hours: 01/30/2019 chest x-ray IMPRESSION: Left lower lobe pneumonia with right lower lobe atelectasis and/or pneumonia. 04/01/2018 CTA of the chest IMPRESSION: 1. No evidence of pulmonary embolus, aortic aneurysm, or aortic dissection. 2. Patchy airspace disease right lower lobe which may be due to atelectasis or infiltrate. 3. Borderline splenomegaly <Lisset Ray - 01/31/19 09:05> - Constitutional no acute distress <Lisset Ray - 01/31/19 09:05> Comments: Appears comfortable <Lisset Ray 01/31/19 09:05> - *Routine HEENT Exam Head: Present: normocephalic, atraumatic <Lisset Ray 01/31/19 09:05> Eye: Present: EOMI, PERRL, normal accommodation. Absent: conjunctival icterus, scleral injection <Ray,[facility] 01/31/19 09:05> ENT: Present: mucous membranes moist, oropharynx clear <Ray,[facility] 01/31/19 09:05> - *Routine Neck Exam Present: supple. Absent: carotid bruit, lymphadenopathy, thyromegaly [facility] 09:05> - *Routine Respiratory Exam Present: CTA bilaterally (Anteriorly and posteriorly) [facility] 09:05> - *Routine Cardiovascular Exam Present: RRR <[facility] 01/31/19 09:05> - *Routine Abdominal Exam Present: soft, normoactive bowel sounds, obese. Absent: tenderness, distended [facility] 01/31/[facility] 09:05> - *Routine Extremities Exam Present: edema, pulses intact. Absent: calf tenderness <[facility] 01/31/19 09:05> - *Routine Neurological Exam Present: alert, oriented X3, CN II-XII intact, moving all extremities, normal speech <[facility] 01/31/19 09:05> Assessment and Plan (1) Community acquired pneumonia Current visit: Yes Status: Acute Qualifiers: Laterality: right Lung location: lower lobe of lung Qualified Code(s): J18.9 - Pneumonia, unspecified organism Category: Medical Code(s): J18.9 - Pneumonia, unspecified organism (2) Acute exacerbation of chronic obstructive airways disease Current visit: Yes Status: Acute Category: Medical Code(s): J44.1 - Chronic obstructive pulmonary disease with (acute) exacerbation (3) Hypertension Current visit: Yes Status: Acute Category: Medical Code(s): I10 - Essential (primary) hypertension (4) Type 2 diabetes mellitus Current visit: Yes Status: Acute Category: Medical Code(s): E11.9 - Type 2 diabetes mellitus without complications (5) Tobacco abuse Current visit: Yes Status: Acute Category: Medical Code(s): Z72.0 - Tobacco use (6) Hypothyroidism Current visit: Yes Status: Acute Category: Medical Code(s): E03.9 - Hypothyroidism, unspecified <Reynold Khan 01/31/19 09:25> (1) Hypertension Current visit: Yes Status: Acute Category: Medical Code(s): I10 - Essential (primary) hypertension (2) Type 2 diabetes mellitus Current visit: Yes Status: Acute Category: Medical Code(s): E11.9 - Type 2 diabetes mellitus without complicat ions (3) Tobacco abuse Current visit: Yes Status: Acute Category: Medical Code(s): Z72.0 - Tobacco use (4) Hypothyroidism Current visit: Yes Status: Acute Category: Medical Code(s): E03.9 - Hypothyroidism, unspecified (5) Acute exacerbation of chronic obstructive airways disease Current visit: Yes Status: Acute Category: Medical Code(s): J44.1 - Chronic obstructive pulmonary disease with (acute) exacerbation (6) Community acquired pneumonia Current visit: Yes Status: Acute Qualifiers: Laterality: right Lung location: lower lobe of lung Qualified Code(s): J18.9 - Pneumonia, unspecified organism Category: Medical Code(s): J18.9 - Pneumonia, unspecified organism <Lisset Ray - 01/31/19 08:46> - Assessment and plan all Dx Assessment and Plan for all problems:: Patient seen and examined this morning. Concur with above assessment and plan. She appears comfortable. O2 sats have improved and she has been weaned from 4 L to 2 L of nasal oxygen. She has not produced a sputum. We will continue current antibiotic regimen despite her history of Ceclor allergy. She is tolerating Rocephin at this time. <Reynold Khan - 01/31/19 09:25> Continue with pneumonia protocol with nebs and antibiotics. <Lisset Ray - 01/31/19 09:05>
[2019-02-01 07:23] LABS: Basophils % 0.1 % (0.1-2.0); Eosinophils % 0.5 % (0.1-12.0); Hematocrit 37.1 % (37.0-47.0); Hemoglobin 11.8 g/dL (12.2-16.2); Lymphocytes # 1.3 K/mm3 (0.7-4.5); Lymphocytes % 21.7 % (10-50); Mean Corpuscular HGB Conc 31.8 g/dL (31.8-35.4); Mean Corpuscular Volume 89.3 fl (81-99); Mean Platelet Volume 8.3 fl (7.4-10.4); Monocytes # 0.2 K/mm3 (0.1-1.0); Monocytes % 3.5 % (1.7-9.3); Neutrophils # 4.6 K/mm3 (1.8-7.8); Neutrophils % 74.1 % (37.0-80.0); Platelet Count 173 K/mm3 (142-424); Red Blood Count 4.15 M/mm3 (4.20-5.40); Red Cell Distribution Width 14.4 % (11.5-17.5); White Blood Count 6.2 K/mm3 (4.8-10.8)
[2019-02-01 07:43] LABS: Anion Gap 10.2 mEq/L (5-15); Calcium 9.3 mg/dL (8.5-10.1)
--- NOTE | 2019-02-01 08:19 | Progress Note ---
<Elisabeth Fiore - Last Filed: 02/01/19 08:16> Internal Medicine - PN: Subj *Date: 02/01/19 *Time: 08:16 Interval history: Patient states she is feeling a little bit better today. She still has some wheezing but her shortness of breath has improved. She slept decently well throughout the night and has not yet eaten breakfast. She denies any significant pain. Exam Vital signs and Labs for Last 24 Hours: Temp Pulse Resp BP Pulse Ox 98.5 F 56 L 24 143/56 H 94 L 02/01/19 04:00 02/01/19 05:59 02/01/19 08:03 02/01/19 04:00 02/01/19 05:59 Laboratory Results - last 24 hr 01/31/19 06:26: POC Glucose 159 H 01/31/19 11:44: POC Glucose 162 H 01/31/19 15:53: POC Glucose 173 H 01/31/19 21:36: POC Glucose 196 H 02/01/19 05:53: POC Glucose 168 H 02/01/19 07:04: WBC 6.2, RBC 4.15 L, Hgb 11.8 L, Hct 37.1, MCV 89.3, MCH 28.4, MCHC 31.8, RDW 14.4, Plt Count 173, MPV 8.3, Neut % (Auto) 74.1, Lymph % (Auto) 21.7, Stevens % (Auto) 3.5, Eos % (Auto) 0.5, Baso % (Auto) 0.1, Neut # (Auto) 4.6, Lymph # (Auto) 1.3, Stevens # (Auto) 0.2, Eos # (Auto) 0.0, Baso # (Auto) 0.0 02/01/19 07:04: Sodium 137, Potassium 4.2, Chloride 104, Carbon Dioxide 27, Anion Gap 10.2, BUN 10, Creatinine 0.65, Estimated Creat Clear 85, Estimated GFR 92, Est GFR ( Amer) 111, Glucose 172 H, Calcium 9.3 I & O for Last 24 hours: Intake & Output 01/29/19 01/30/19 01/31/19 02/01/19 11:59 11:59 11:59 11:59 Intake Total 955 / 955 936 / 936 Output Total 300 / 300 Balance 955 / 955 636 / 636 Weight 209 lb 6 oz 208 lb 5 oz - Constitutional no acute distress - *Routine Respiratory Exam Present: rhonchi, wheezes (bilaterally) - *Routine Cardiovascular Exam Present: RRR - *Routine Abdominal Exam Present: soft, normoactive bowel sounds. Absent: tenderness - *Routine Extremities Exam Present: edema (trace). Absent: cyanosis, clubbing - *Routine Skin Exam Present: warm. Absent: rash - *Routine Neurological Exam Present: alert, oriented X3 Assessment and Plan (1) Community acquired pneumonia Current visit: Yes Status: Acute Qualifiers: Laterality: right Lung location: lower lobe of lung Qualified Code(s): J18.9 - Pneumonia, unspecified organism Category: Medical Code(s): J18.9 - Pneumonia, unspecified organism (2) Acute exacerbation of chronic obstructive airways disease Current visit: Yes Status: Acute Category: Medical Code(s): J44.1 - Chronic obstructive pulmonary disease with (acute) exacerbation (3) Hypertension Current visit: Yes Status: Acute Category: Medical Code(s): I10 - Essential (primary) hypertension (4) Type 2 diabetes mellitus Current visit: Yes Status: Acute Category: Medical Code(s): E11.9 - Type 2 diabetes mellitus without complications (5) Tobacco abuse Current visit: Yes Status: Acute Category: Medical Code(s): Z72.0 - Tobacco use (6) Hypothyroidism Current visit: Yes Status: Acute Category: Medical Code(s): E03.9 - Hypothyroidism, unspecified - Assessment and plan all Dx Assessment and Plan for all problems:: Awaiting blood and sputum cultures. We will continue antibiotics, nebs, and steroids. <Reynold Khan - Last Filed: 02/01/19 14:01> Internal Medicine - PN: Subj *Date: 02/01/19 *Time: 13:59 Exam Vital signs and Labs for Last 24 Hours: Temp Pulse Resp BP Pulse Ox 98.5 F 74 18 163/86 H 94 L 02/01/19 12:00 02/01/19 13:34 02/01/19 12:00 02/01/19 12:00 02/01/19 13:34 Laboratory Results - last 24 hr 01/31/19 11:44: POC Glucose 162 H 01/31/19 15:53: POC Glucose 173 H 01/31/19 21:36: POC Glucose 196 H 02/01/19 05:53: POC Glucose 168 H 02/01/19 07:04: WBC 6.2, RBC 4.15 L, Hgb 11.8 L, Hct 37.1, MCV 89.3, MCH 28.4, MCHC 31.8, RDW 14.4, Plt Count 173, MPV 8.3, Neut % (Auto) 74.1, Lymph % (Auto) 21.7, Stevens % (Auto) 3.5, Eos % (Auto) 0.5, Baso % (Auto) 0.1, Neut # (Auto) 4.6, Lymph # (Auto) 1.3, Stevens # (Auto) 0.2, Eos # (Auto) 0.0, Baso # (Auto) 0.0 02/01/19 07:04: Sodium 137, Potassium 4.2, Chloride 104, Carbon Dioxide 27, Anion Gap 10.2, BUN 10, Creatinine 0.65, Estimated Creat Clear 85, Estimated GFR 92, Est GFR ( Amer) 111, Glucose 172 H, Calcium 9.3 02/01/19 11:18: POC Glucose 191 H I & O for Last 24 hours: Intake & Output 01/30/19 01/31/19 02/01/19 02/02/19 11:59 11:59 11:59 11:59 Intake Total 955 / 955 1296 / 1296 Output Total 300 / 300 Balance 955 / 955 996 / 996 Weight 209 lb 6 oz 208 lb 5 oz Assessment and Plan (1) Community acquired pneumonia Current visit: Yes Status: Acute Qualifiers: Laterality: right Lung location: lower lobe of lung Qualified Code(s): J18.9 - Pneumonia, unspecified organism Category: Medical Code(s): J18.9 - Pneumonia, unspecified organism (2) Acute exacerbation of chronic obstructive airways disease Current visit: Yes Status: Acute Category: Medical Code(s): J44.1 - Chronic obstructive pulmonary disease with (acute) exacerbation (3) Hypertension Current visit: Yes Status: Acute Category: Medical Code(s): I10 - Essential (primary) hypertension (4) Type 2 diabetes mellitus Current visit: Yes Status: Acute Category: Medical Code(s): E11.9 - Type 2 diabetes mellitus without complications (5) Tobacco abuse Current visit: Yes Status: Acute Category: Medical Code(s): Z72.0 - Tobacco use (6) Hypothyroidism Current visit: Yes Status: Acute Category: Medical Code(s): E03.9 - Hypothyroidism, unspecified (7) Hypoxemia Current visit: Yes Status: Acute Category: Medical Code(s): R09.02 - Hypoxemia - Assessment and plan all Dx Assessment and Plan for all problems:: Patient seen and examined. Concur with above assessment and plan. We will also obtain PT eval to assess for strength, endurance and balance
--- NOTE | 2019-02-01 12:53 | Cardiology Report ---
APPROVED REPORT EXAM: Comprehensive 2D, Doppler, and color-flow Echocardiogram Herbicide Sprayer: Jelena Araya CRT Ht: 5 ft 2 in Wt: 218lbs BSA: 1.98 BP: 149/94 mmHg Indications: COPD, Murmur, Shortness of Breath, Obesity, Hyperlipidemia, Hypertension/HDD 2D Dimensions LVOT 1.81 cm (M/F) 1.5-2.5 M-Mode Dimensions RVDd 2.92 cm (0.9-2.6)LVDd 4.81 cm (3.5-5.7) LVDs 3.37 cm (3.5-5.7)IVSd 0.80 cm (0.6-1.1) PWd 0.98 cm (0.6-1.1)EF (Teich) 57.00% FS 29.90% EDV (Teich) 108.00 mL ESV (Teich) 46.40 mL LV Diastology E/A Ratio 0.82 Mitral Valve MV A Velocity 81.00 (40-130 cm/s) Left Ventricle Left atrium is normal size, left ventricle is normal size, mild concentric left ventricular hypertrophy, visually estimated ejection fraction 55% with no regional wall motion abnormality, grade 1 diastolic dysfunction seen without tissue Doppler evidence of raise left atrial pressure. Right Ventricle Right atrium and right ventricular normal size and contractility. Aortic Valve Aortic valve is minimally thickened and fibrosed, there is no aortic stenosis aortic insufficiency. Mitral Valve Mitral valve is grossly normal, there is mild mitral regurgitation. Tricuspid Valve Tricuspid valve is grossly normal, there is mild tricuspid regurgitation. Tricuspid regurgitation reflux is inadequate for calculation of the right ventricular systolic pressure. Pulmonic Valve Pulmonic valve is poorly visualized. Great Vessels Aortic root is normal size. Pericardium No significant pericardial effusion noted. Conclusion 1. Mildly enlarged left atrium, normal left ventricular size, mild concentric left ventricular hypertrophy, visually estimated ejection fraction 55% with no regional wall motion abnormality, grade 1 diastolic dysfunction seen without tissue Doppler evidence of raise left atrial pressure. 2. Mild mitral and tricuspid regurgitation. 3. No significant pericardial effusion noted. The Electronically signed by : Ronny Garcia, 02/01/2019 12:52:28
--- NOTE | 2019-02-02 08:14 | Electrocardiograph Report ---
APPROVED REPORT Exam: Resting ECG HR:73 bpm ECG Measurements Heart Rate 73 AXES AL 182 P 58 QRSd 80 QRS 56 QT 408 T24 QTc 449 <Conclusion> Normal sinus rhythm Nonspecific ST and T wave abnormality Abnormal ECG Electronically signed by : Rachid Fields, 02/02/2019 08:13:57
--- NOTE | 2019-02-02 08:21 | Progress Note ---
<Elisabeth Fiore - Last Filed: 02/02/19 08:19> Internal Medicine - PN: Subj *Date: 02/02/19 *Time: 08:19 Interval history: Patient states she has been off of her oxygen since last night and her sats have been above 90. She still has a cough but her shortness of breath is improved. She slept well last night and is up eating breakfast this morning. She is anxious to go home. Exam Vital signs and Labs for Last 24 Hours: Temp Pulse Resp BP Pulse Ox 98.6 F 57 L 22 179/67 H 91 L 02/02/19 04:00 02/02/19 06:39 02/02/19 04:00 02/02/19 04:00 02/02/19 06:39 Laboratory Results - last 24 hr 02/01/19 11:18: POC Glucose 191 H 02/01/19 17:12: POC Glucose 152 H 02/01/19 21:33: POC Glucose 277 H 02/02/19 06:28: POC Glucose 194 H I & O for Last 24 hours: Intake & Output 01/30/19 01/31/19 02/01/19 02/02/19 11:59 11:59 11:59 11:59 Intake Total 955 / 955 1296 / 1296 996 / 996 Output Total 300 / 300 1600 / 1600 Balance 955 / 955 996 / 996 -604 / -604 Weight 209 lb 6 oz 208 lb 5 oz 213 lb Microbiology Reports for the Last 24 Hours: Microbiology 01/30/19 20:15 Blood Blood Culture - Preliminary NO GROWTH AFTER 48 HOURS 01/30/19 20:15 Blood Blood Culture - Preliminary NO GROWTH AFTER 48 HOURS Radiology Reports for the Last 24 Hours: Echo Conclusion 1. Mildly enlarged left atrium, normal left ventricular size, mild concentric left ventricular hypertrophy, visually estimated ejection fraction 55% with no regional wall motion abnormality, grade 1 diastolic dysfunction seen without tissue Doppler evidence of raise left atrial pressure. 2. Mild mitral and tricuspid regurgitation. 3. No significant pericardial effusion noted. - Constitutional no acute distress - *Routine Respiratory Exam Present: rhonchi, wheezes - *Routine Cardiovascular Exam Present: RRR - *Routine Abdominal Exam Present: soft, normoactive bowel sounds. Absent: tenderness - *Routine Extremities Exam Present: edema (trace LE edema bilaterally). Absent: cyanosis, clubbing - *Routine Skin Exam Present: warm. Absent: rash - *Routine Neurological Exam Present: alert, oriented X3 Assessment and Plan (1) Community acquired pneumonia Status: Acute Qualifiers: Laterality: right Lung location: lower lobe of lung Qualified Code(s): J18.9 - Pneumonia, unspecified organism Category: Medical Code(s): J18.9 - Pneumonia, unspecified organism (2) Acute exacerbation of chronic obstructive airways disease Status: Acute Category: Medical Code(s): J44.1 - Chronic obstructive pulmonary disease with (acute) exacerbation (3) Hypertension Status: Acute Category: Medical Code(s): I10 - Essential (primary) hypertension (4) Type 2 diabetes mellitus Status: Acute Category: Medical Code(s): E11.9 - Type 2 diabetes mellitus without complications (5) Tobacco abuse Status: Acute Category: Medical Code(s): Z72.0 - Tobacco use (6) Hypothyroidism Status: Acute Category: Medical Code(s): E03.9 - Hypothyroidism, unspecified (7) Hypoxemia Status: Acute Category: Medical Code(s): R09.02 - Hypoxemia - Assessment and plan all Dx Assessment and Plan for all problems:: Echo reviewed. Patient has symptomatically improved. Possible discharge home today. <Reynold Khan - Last Filed: 02/02/19 13:19> Internal Medicine - PN: Subj *Date: 02/02/19 *Time: 13:17 Exam Vital signs and Labs for Last 24 Hours: Temp Pulse Resp BP Pulse Ox 98.7 F 122 H 18 157/77 H 92 L 02/02/19 08:00 02/02/19 08:00 02/02/19 09:42 02/02/19 08:00 02/02/19 08:00 Laboratory Results - last 24 hr 02/01/19 17:12: POC Glucose 152 H 02/01/19 21:33: POC Glucose 277 H 02/02/19 06:28: POC Glucose 194 H I & O for Last 24 hours: Intake & Output 01/31/19 02/01/19 02/02/19 02/03/19 11:59 11:59 11:59 11:59 Intake Total 955 / 955 1296 / 1296 1116 / 1116 Output Total 300 / 300 1600 / 1600 Balance 955 / 955 996 / 996 -484 / -484 Weight 209 lb 6 oz 208 lb 5 oz 213 lb Microbiology Reports for the Last 24 Hours: Microbiology 01/30/19 20:15 Blood Blood Culture - Preliminary NO GROWTH AFTER 48 HOURS 01/30/19 20:15 Blood Blood Culture - Preliminary NO GROWTH AFTER 48 HOURS Assessment and Plan (1) Community acquired pneumonia Status: Acute Qualifiers: Laterality: right Lung location: lower lobe of lung Qualified Code(s): J18.9 - Pneumonia, unspecified organism Category: Medical Code(s): J18.9 - Pneumonia, unspecified organism (2) Acute exacerbation of chronic obstructive airways disease Status: Acute Category: Medical Code(s): J44.1 - Chronic obstructive pulmonary disease with (acute) exacerbation (3) Hypertension Status: Acute Category: Medical Code(s): I10 - Essential (primary) hypertension (4) Type 2 diabetes mellitus Status: Acute Category: Medical Code(s): E11.9 - Type 2 diabetes mellitus without complications (5) Tobacco abuse Status: Acute Category: Medical Code(s): Z72.0 - Tobacco use (6) Hypothyroidism Status: Acute Category: Medical Code(s): E03.9 - Hypothyroidism, unspecified (7) Hypoxemia Status: Acute Category: Medical Code(s): R09.02 - Hypoxemia - Assessment and plan all Dx Assessment and Plan for all problems:: Patient seen and examined. PT maurice noted. Patient does not want to consider skilled care placement. Agreeable to home health. SHe is stable for discharge. Will continue on oral antibiotics and f/u in 10 days.
--- NOTE | 2019-02-02 15:34 | Discharge Summary ---
General - General Admission date:: 01/30/19 <Reynold Khan - 03/03/19 08:31> 01/30/19 <Elisabeth Fiore - 02/02/19 15:35> Discharge date: 02/02/19 <Elisabeth Fiore - 02/02/19 15:35> HPI HPI: Ms. Dominguez is a 63-year-old female with history of chronic asthma, COPD, tobacco use disorder, diabetes mellitus, hypertension, chronic back pain, hypothyroidism, GERD, and depression who had not felt well for 2 to 3 days prior to admission. She described weakness and shortness of breath. She had also had a cough with difficulty breathing. On the night of admission, she had palpitat ions along with labored respiratory effort. Her caregiver had her brought to the hospital emergency room for evaluation. With evaluation in the emergency room, she was found to have a decrease in her O2 sats. She was felt to have pneumonia and was admitted for further evaluation and treatment. <Elisabeth Fiore - 02/02/19 15:35> Hospital Course Hospital Course: The patient's chest x-ray showed a left lower lobe pneumonia with right lower lobe pneumonia versus atelectasis. She had a CTA which showed no evidence of PE. It did show patchy airspace disease in the right lower lobe possibly due to atelectasis versus an infiltrate. The patient was admitted and started on oxygen and IV antibiotics. She was also started on neb treatments. She did have an echo ordered which showed an EF of 55% with grade 1 diastolic dysfunction. She had a repeat chest x-ray on 01/31/2019 which showed improved bibasilar airspace disease. Her symptoms began improving. She had less shortness of breath and wheezing. She was finally able to rest well and her oxygen was weaned. Physical therapy did see the patient and felt she would need home health physical therapy upon discharge or assisted placement. She did not want to consider skilled care but was agreeable to home health. Her blood cultures returned with no growth. She was unable to provide a sputum sample. She was stable to be discharged home with oral antibiotics and home health. <Elisabeth Fiore - 02/02/19 15:35> Objective Vital signs: Temp Pulse Resp BP Pulse Ox 98.7 F 122 H 18 157/77 H 92 L 02/02/19 08:00 02/02/19 08:00 02/02/19 09:42 02/02/19 08:00 02/02/19 08:00 <Reynold Khan - 03/03/19 08:31> Temp Pulse Resp BP Pulse Ox 98.7 F 122 H 18 157/77 H 92 L 02/02/19 08:00 02/02/19 08:00 02/02/19 09:42 02/02/19 08:00 02/02/19 08:00 <Elisabeth Fiore - 02/02/19 15:35> Narrative: - Constitutional no acute distress - *Routine Respiratory Exam Present: rhonchi, wheezes - *Routine Cardiovascular Exam Present: RRR - *Routine Abdominal Exam Present: soft, normoactive bowel sounds. Absent: tenderness - *Routine Extremities Exam Present: edema (trace LE edema bilaterally). Absent: cyanosis, clubbing - *Routine Skin Exam Present: warm. Absent: rash - *Routine Neurological Exam Present: alert, oriented X3 <Elisabeth Fiore - 02/02/19 15:35> Results Labs on day of discharge: Labs from last 24 hours 02/02/19 02/01/19 02/01/19 06:28 21:33 17:12 POC Glucose 194 H 277 H 152 H Preliminary micro results at discharge 01/30/19 20:15 Blood Culture - Preliminary Blood NO GROWTH AFTER 48 HOURS 01/30/19 20:15 Blood Culture - Preliminary Blood NO GROWTH AFTER 48 HOURS <Elisabeth Fiore - 02/02/19 15:35> DS: Diagnosis - Discharge Diagnosis (1) Community acquired pneumonia Status: Acute (2) Acute exacerbation of chronic obstructive airways disease Status: Acute (3) Hypertension Status: Acute (4) Type 2 diabetes mellitus Status: Acute (5) Tobacco abuse Status: Acute (6) Hypothyroidism Status: Acute (7) Hypoxemia Status: Acute <Elisabeth Fiore - 02/02/19 15:29> (1) Community acquired pneumonia Status: Acute (2) Acute exacerbation of chronic obstructive airways disease Status: Acute (3) Hypertension Status: Chronic (4) Type 2 diabetes mellitus Status: Chronic (5) Tobacco abuse Status: Acute (6) Hypothyroidism Status: Chronic (7) Hypoxemia Status: Acute <Reynold Khan - 03/03/19 08:31> Discharge Plan - Patient Discharge Instructions ACTIVITY: Continue current activity <Elisabeth Fiore - 02/02/19 15:35> DIET: continue same diet <Elisabeth Fiore - 02/02/19 15:35> Patient Instructions: Pneumonia-Adult, Chronic Obstructive Pulmonary Disease, DI for Chronic Obstructive Pulmonary Disease, DI for Pneumonia -- Adult <Reynold Khna - 03/03/19 08:31> Forms: <Reynold Khan - 03/03/19 08:31> - Follow up Plan Follow up with: Reynold Khan MD [Primary Care Provider] - 02/12/19 2:00 pm <Reynold Khan - 03/03/19 08:31> Disposition: Home Health Service <Reynold Khan - 03/03/19 08:31> Home Medications: Home Medications Medication Instructions Recorded Confirmed Type diazepam 10 mg tablet 10 mg PO QIDP PRN tab 05/03/17 02/15/19 History hydrocodone 10 mg-acetaminophen 1 tab PO Q6H 05/03/17 02/15/19 History 325 mg tablet atenoloL [Atenolol 25mg Tab] 25 mg PO DAILY 10/05/17 02/15/19 History Dicyclomine HCl [Bentyl 10mg 10 mg PO Q6HP PRN 01/31/19 02/14/19 History capsule] Fluticasone Propionate 1 spray NOSTRIL-B DAILY 01/31/19 02/15/19 History Levothyroxine Sodium 50 mcg PO DAILY 01/31/19 02/15/19 History [Levothyroxine 50mcg (0.05mg) Tab] Metformin HCl 500 mg PO HS 01/31/19 02/15/19 History Rosuvastatin Calcium 20 mg PO HS 01/31/19 02/15/19 History Trazodone HCl 300 mg PO HS 01/31/19 02/15/19 History Omeprazole [Omeprazole 40mg 40 mg PO BID 02/01/19 02/15/19 History Capsule] Sertraline HCl [Zoloft 100mg 100 mg PO BID 02/01/19 02/15/19 History tablet] Cholecalciferol (Vitamin D3) 1,000 unit PO DAILY 02/14/19 02/15/19 History [Vitamin D3 1,000 Unit Cap] Promethazine/Dextromethorphan 5 ml PO Q4HP PRN 02/14/19 02/15/19 History [Promethazine-Dm Syrup] Ergocalciferol (Vitamin D2) 50,000 units PO WEEKLY 02/15/19 02/15/19 History [Drisdol 50,000 units (1.25mg) capsule] Furosemide [Furosemide 40MG tAB] 60 mg PO DAILY PRN 02/15/19 02/15/19 History Nystatin [Nystatin Cr 100,000 1 applic TP BID 02/15/19 02/15/19 History Units/GM 30GM] methylPREDNISolone [Medrol 4mg 4 mg PO DIRECTED #21 tab 02/16/19 Rx tab] <Reynold Khan - 03/03/19 08:31> Prescriptions/Medication Reconciliation: Continued diazepam 10 mg tablet 10 mg PO QIDP PRN tab PRN Reason: Anxiety hydrocodone 10 mg-acetaminophen 325 mg tablet 1 tab PO Q6H atenoloL [Atenolol 25mg Tab] 25 mg PO DAILY Dicyclomine HCl [Bentyl 10mg capsule] 10 mg PO Q6HP PRN PRN Reason: pain/stomach Fluticasone Propionate 1 spray NOSTRIL-B DAILY Rosuvastatin Calcium 20 mg PO HS Trazodone HCl 300 mg PO HS Sertraline HCl [Zoloft 100mg tablet] 100 mg PO BID Metformin HCl 500 mg PO HS Levothyroxine Sodium [Levothyroxine 50mcg (0.05mg) Tab] 50 mcg PO DAILY Omeprazole [Omeprazole 40mg Capsule] 40 mg PO BID No Action Cholecalciferol (Vitamin D3) [Vitamin D3 1,000 Unit Cap] 1,000 unit PO DAILY Nystatin [Nystatin Cr 100,000 Units/GM 30GM] 1 applic TP BID Ergocalciferol (Vitamin D2) [Drisdol 50,000 units (1.25mg) capsule] 50,000 units PO WEEKLY Furosemide [Furosemide 40MG tAB] 60 mg PO DAILY PRN PRN Reason: FLUID Promethazine/Dextromethorphan [Promethazine-Dm Syrup] 5 ml PO Q4HP PRN PRN Reason: Nausea/COUGH methylPREDNISolone [Medrol 4mg tab] 4 mg PO DIRECTED #21 tab <Reynold Khan - 03/03/19 08:31> - Problem Reconciliation Problems Reviewed?: Yes <Reynold Khan - 03/03/19 08:31> Yes <Elisabeth Fiore - 02/02/19 15:35> - Additional Information Additional Information: Patient seen and examined. Concur with plan for discharge as outlined above. <Reynold Khan - 03/03/19 08:31>
== END 2019-02-02 10:45 | disposition home health service (06) | DRG 190 ==
LOC: 2ND 19:53 → ER 19:53 → 2ND 23:40 → OBSVTOIN 23:40
PROVIDERS: ADMIT Family Medicine; ATTEND Family Medicine
DX: I50.9 Heart failure, unspecified; J44.1 Chronic obstructive pulmonary disease with (acute) exacerbation; Z72.0 Tobacco use; R53.1 Weakness; I11.0 Hypertensive heart disease with heart failure; Z79.84 Long term (current) use of oral hypoglycemic drugs; J18.9 Pneumonia, unspecified organism; E03.9 Hypothyroidism, unspecified; J44.0 Chronic obstructive pulmonary disease with (acute) lower respiratory infection; Z79.899 Other long term (current) drug therapy
CPT/HCPCS: 36415; 71010; 71020; 71045; 71046; 71275; 80048; 80076; 82803; 82962; 83605; 83735; 84484; 85025; 85651; 86140; 87040; 93005; 93306; 94640; 94761; 96365; 96375; 97116; 97161; 99284; J0456; Q9967

== ENCOUNTER 2019-02-14 19:10 | Observation (INO) ==
[2019-02-14 19:48] LABS: Basophils % 0.3 % (0.1-2.0); Eosinophils # 0.1 K/mm3 (0.0-0.4); Hematocrit 45.8 % (37.0-47.0); Lymphocytes # 2.6 K/mm3 (0.7-4.5); Lymphocytes % 27.1 % (10-50); Mean Corpuscular HGB Conc 30.6 g/dL (31.8-35.4); Mean Platelet Volume 7.2 fl (7.4-10.4); Monocytes # 0.3 K/mm3 (0.1-1.0); Neutrophils # 6.5 K/mm3 (1.8-7.8); Neutrophils % 68.7 % (37.0-80.0); Platelet Count 193 K/mm3 (142-424); Red Blood Count 5.14 M/mm3 (4.20-5.40); Red Cell Distribution Width 14.1 % (11.5-17.5); White Blood Count 9.5 K/mm3 (4.8-10.8)
[2019-02-14 20:09] LABS: Alanine Aminotransferase 39 U/L (12-78); Albumin Level 3.5 gm/dL (3.4-5.0); Albumin/Globulin Ratio 0.7 (1.1-1.8); Alkaline Phosphatase 245 U/L (46-116); Anion Gap 12.3 mEq/L (5-15); Aspartate Amino Transferase 21 U/L (15-37); Bilirubin,Total 0.2 mg/dL (0.2-1.0); Blood Urea Nitrogen 8 mg/dL (7-18); C-Reactive Protein 1.1 mg/dL (0.0-0.9); Calcium 9.2 mg/dL (8.5-10.1); Carbon Dioxide 31 mmol/L (21.0-32.0); Chloride 101 mmol/L (98-107); Globulin 5.1 gm/dl (1.3-3.2); Glucose 143 mg/dL (74-106); Sodium 140 mmol/L (136-145); Total Protein,Serum 8.6 gm/dL (6.4-8.2)
[2019-02-14 20:21] LABS: ABG Base Excess 0.8 mmol/L (-2.4-2.3); ABG HCO3 27.2 mmhg (22.0-26.0); ABG Oxygen Saturation 91 % (90-100); ABG PH 7.31 mmol/L (7.35-7.45); ABG PO2 64.9 mmhg (80-100); ABG TCO2 28.9 mmhg (23-27)
[2019-02-14 20:24] LABS: Erythrocyte Sedimentation Rate 15 mm/hr (0-30)
[2019-02-14 20:25] LABS: Allen's Test ACCEPTABLE; Oxygen 32 %
[2019-02-14 20:27] LABS: ABG PCO2 55.8 mmhg (35.0-45.0)
--- NOTE | 2019-02-14 20:47 | Emergency Department Note ---
ED Disposition Clinical Impression: Acute exacerbation of chronic obstructive airways disease Obesity Qualifiers: Obesity type: due to excess calories Obesity classification: adult class 2 (BMI 35 - 39.9) Serious obesity comorbidity presence: with serious comorbidity Body mass index: BMI 39.0-39.9 Qualified Code(s): E66.01 - Morbid (severe) obesity due to excess calories; Z68.39 - Body mass index (BMI) 39.0-39.9, adult Disposition: Admitted as Observation Condition on Discharge: Good Referrals: Reynold Khan MD [Primary Care Provider] - - Critical Care Critical Care Time: No Attestation: On 02/14/19, the high probability of a clinically significant, sudden or life threatening deterioration of the following system(s) required my full and direct attention, intervention and personal management. The time I documented below is in addition to time spent performing reported procedures but includes the following listed in this critical care notation. Medical Decision Making - Medical Records Medical records reviewed: Yes: I reviewed the patient's medical records. - Saad Inquiry Pt receiving controlled substance: No Vital Signs: 02/14/19 19:27 Temperature 99.2 F Temperature Source Oral Pulse Rate [Right Brachial] 83 Respiratory Rate 28 H Blood Pressure [Right Arm] 152/81 H Blood Pressure Mean [Right Arm] 104 Blood Pressure Source [Right Arm] Automatic Cuff Blood Pressure Position [Right Arm] Supine 02 Sat by Pulse Oximetry 92 L Oxygen Delivery Method Nasal Cannula Oxygen Flow Rate (LPM) 6 - Lab Data Lab results reviewed: Yes: I reviewed the patient's lab results. Lab Results 02/14/19 19:20: Influenza Type A Ag Negative, Influenza Type B Ag Negative 02/14/19 19:20: Group A Strep Rapid Negative 02/14/19 19:30: WBC 9.5, RBC 5.14, Hgb 14.0, Hct 45.8, MCV 89.0, MCH 27.3, MCHC 30.6 L, RDW 14.1, Plt Count 193, MPV 7.2 L, Neut % (Auto) 68.7, Lymph % (Auto) 27.1, [place] % (Auto) 3.0, Eos % (Auto) 1.0, Baso % (Auto) 0.3, Neut # (Auto) 6.5, Lymph # (Auto) 2.6, [place] # (Auto) 0.3, Eos # (Auto) 0.1, Baso # (Auto) 0.0, ESR 15 02/14/19 19:30: Sodium 140, Potassium 4.3, Chloride 101, Carbon Dioxide 31, Anion Gap 12.3, BUN 8, Creatinine 0.74, Estimated Creat Clear 87, Estimated GFR 79, Est GFR ( Amer) 96, Glucose 143 H, Calcium 9.2, Total Bilirubin 0.2, AST 21, ALT 39, Alkaline Phosphatase 245 H, Troponin I < 0.02, C-Reactive Protein 1.1 H, Total Protein 8.6 H, Albumin 3.5, Globulin 5.1 H, Albumin/Globulin Ratio 0.7 L 02/14/19 19:30: Lactate 1.0 02/14/19 19:36: Specimen Source Right radial, O2 % 32, ABG pH 7.31 L, ABG pCO2 55.8 H, ABG pO2 64.9 L, ABG HCO3 27.2 H, ABG Total CO2 28.9 H, ABG O2 Saturation 91, ABG Base Excess 0.8, Kofi Test Acceptable Result diagrams: 02/14/19 19:30 02/14/19 19:30 Orders (Tests/Meds): ED MEDICATIONS Generic Name Dose Route Start Last Admin Trade Name Freq PRN Reason Stop Dose Admin Sodium Chloride 1,000 mls @ 999 mls/hr 02/14/19 19:45 02/14/19 19:39 Sod Chlor 0.9% 1000ml Bag IV 02/14/19 20:45 999 mls/hr .Q1H1M MYKE Administration Piperacillin Sod/Tazobactam 100 mls @ 200 mls/hr 02/14/19 21:30 Sod 4.5 gm/ Sodium Chloride IV 02/28/19 21:29 Q6H MYKE Protocol Azithromycin 500 mg/ Sodium 250 mls @ 250 mls/hr 02/14/19 21:30 02/14/19 22:11 Chloride IV 02/28/19 21:29 250 mls/hr Q24H MYKE Administration Protocol Sodium Chloride 3 ml 02/14/19 21:17 Sodium Chloride 3% 15ml Neb IH 03/16/19 21:16 ONCE PRN INDUCE SPUTUM COLLECTION Discontinued Medications Generic Name Dose Route Start Last Admin Trade Name Freq PRN Reason Stop Dose Admin Levofloxacin/Dextrose 750 mg in 150 mls @ 100 mls/hr 02/14/19 21:00 02/14/19 21:02 Levofloxacin 750mg/150ml Premix IV 02/28/19 20:59 Not Given Q24H MYKE Protocol Methylprednisolone Sodium Succinate 125 mg 02/14/19 19:36 02/14/19 19:39 Solu-Medrol 125mg/2ml Vial IV 02/14/19 19:37 125 mg ONCE ONE Administration ORDERS Category Date Time Status Troponin I Q3H Lab 02/14/19 22:45 Ordered Troponin I Q3H Lab 02/15/19 01:45 Ordered Blood Culture Stat Micro 02/14/19 19:30 Received Sputum Culture & Gram Stain Stat Micro 02/14/19 21:17 Ordered Strep Screen Confirmation Stat Micro 02/14/19 19:20 Received ECG Request by /Luz Stat Y 02/14/19 19:36 Ordered - Radiology Data #1 Image(s): Chest Image Reviewed: Yes I reviewed the patient's radiology image Preliminary Findings: Normal/NAD - ECG Data Tracing #1 Normal Sinus Rhythm: Yes Ischemic changes: non-specific ST-T wave changes - Physician Consults Physician Consulted: autumn Reason -: Admission Resp/SOB HPI - General Chief Complaint: Shortness of Breath/Dyspnea Stated Complaint: SOB Time Seen by Provider: 02/14/19 20:47 Mode of Arrival: Wheelchair Source of Information: Patient, Relative, Medical Record Limitations: No Limitations Description of Symptoms (Recalled from ER Triage Doc. by RN): PATIENT WHEELED INTO TREATMENT 9 C/O SHORTNESS OF BREATH THAT STARTED TODAY. PATIENT REPORTS HISTORY OF COPD, QUIT SMOKING 2 WEEKS AGO. DENIES HOME O2. DENIES FEVER. REPORTS O2 SAT AT HOME 78-80%. RA O2 UPON ARRIVAL 82%. PATIENT PLACED ON 6L NC UPON ARRIVAL. - History of Present Illness pt with acute sob w/o chest pain this afternoon with hx of copd - no o2 at home - recently stopped tob - pt with reported pulse oxy 76% on room air at home - no hemoptysis and no syncope - MD Complaint: shortness of breath Onset (ago): hour(s) Context: recent illness Severity: similar to previous episodes Consistency/Duration: intermittent Known history of: COPD Associated symptoms: cough Treatment prior to arrival: none - Related Data Home oxygen amount: none Home Medications Medication Instructions Recorded Confirmed diazepam 10 mg tablet 10 mg PO QIDP PRN tab 05/03/17 02/14/19 hydrocodone 10 mg-acetaminophen 1 tab PO Q6H 05/03/17 02/14/19 325 mg tablet atenoloL [Atenolol 25mg Tab] 25 mg PO DAILY 10/05/17 02/14/19 Dicyclomine HCl [Bentyl 10mg 10 mg PO Q6HP PRN 01/31/19 02/14/19 capsule] Fluticasone Propionate 1 spray NOSTRIL-B DAILY 01/31/19 02/14/19 Levothyroxine Sodium 50 mcg PO DAILY 01/31/19 02/14/19 [Levothyroxine 50mcg (0.05mg) Tab] Metformin HCl 500 mg PO HS 01/31/19 02/14/19 Potassium Chloride [Micro-K 10mEq 10 meq PO DAILY 01/31/19 02/14/19 cap] Rosuvastatin Calcium 20 mg PO HS 01/31/19 02/14/19 Trazodone HCl 300 mg PO HS 01/31/19 02/14/19 Furosemide [Lasix 20mg tablet] 20 mg PO DAILYP PRN 02/01/19 02/14/19 Omeprazole [Omeprazole 40mg 40 mg PO BID 02/01/19 02/14/19 Capsule] Sertraline HCl [Zoloft 100mg 100 mg PO BID 02/01/19 02/14/19 tablet] Cholecalciferol (Vitamin D3) 1,000 unit PO DAILY 02/14/19 02/14/19 [Vitamin D3 1,000 Unit Cap] Allergies Allergy/AdvReac Type Severity Reaction Status Date / Time nickel Allergy Intermediate I-RASH Verified 01/30/19 20:31 silk Allergy Mild I-RASH Verified 01/30/19 20:31 cefaclor Allergy Unknown RASH/DIFF Verified 01/30/19 20:31 BREATHING ibuprofen Allergy Unknown NA-NAUSEA/V Verified 01/30/19 20:31 OMITING levofloxacin [From Levaquin] Allergy Unknown Unknown Verified 01/30/19 20:31 allergy reaction morphine Allergy Unknown "BOTTOMS Verified 01/30/19 20:31 OUT UP" nitrofurantoin Allergy Unknown Unknown Verified 01/30/19 20:31 [From MACROBID] allergy reaction Sulfa (Sulfonamide Allergy Unknown Unknown Verified 01/30/19 20:31 Antibiotics) allergy reaction SURGICAL STEEL Allergy Intermediate I-RASH Uncoded 03/01/17 14:04 [facility] History - Hepatitis A Screen Drug use history?: No High risk sexual behaviors?: No History of sexually transmitted infection?: No Currently employed?: No Childcare worker?: No Do you have indoor plumbing?: Yes Do you have electricity?: Yes Attestation statement:: This patient has been screened for Hepatitis A risk factors. I have reviewed the patient's past medical history: Yes Medical History: Reports:: Asthma, Congestive Heart Failure, Chronic Obstructive Pulmonary Disease (COPD), Depression, Diabetes Mellitus Type 2, Gastroesophageal Reflux Disease(GERD), Hyperlipidemia, Hypertension Denies:: Cancer, Diabetes Mellitus Type 1, Internal Pacemaker, Lung Disease, MRSA, Seizures Other Medical History: Reports: Anemia, Arthritis, Hypothyroidism, Other (STROKE) Laterality Cases: Left: Arthroscopy Knee, Right: Breast Biopsy Other Surgeries: Yes: Cholecystectomy, Colonoscopy, , Other (GALLBLADDER,CYSTOSCOPY WITH URETERAL DIL.,CYSTO WITH LEFT RETROGRADE PYELOG). No: Pacemaker Amputation: No Fractures: No - Social History Smoking Status: Former smoker Tobacco Type: cigarettes # Packs/Day (cigarettes): 1 Smoking End Date: 01/31/19 Alcohol Intake: never Substance Use Type: denies use Occupational Status: retired Housing: house Household Members: family, friend(s) - Psychiatric History Pschychiatric History:: Reports:: Depression Family Hx:: Cancer, Diabetes, Heart Attack, Hyperlipidemia, Kidney Disease ROS Obtained: Yes All systems reviewed & no additional complaints - Constitutional Constitutional: Denies fever(s) - Eyes Eyes: Denies change in vision - ENT Ears, Nose, Mouth, and Throat: Denies sore throat - Cardiovascular Cardiovascular: Reports as per HPI, Denies chest pain, Reports dyspnea - Respiratory Respiratory: Yes cough, Yes non-productive cough, No coughing up blood, Yes pain on inspiration - Gastrointestinal Gastrointestingal: Denies: vomiting - Genitourinary Female Genitourinary: Denies hematuria - Musculoskeletal Musculoskeletal: Denies joint swelling - Integumentary/Breasts Skin/Breast: Denies rash - Neurologic Neurologic: Denies seizure-like activity Physical Exam - General General appearance: alert, obese - Head Head exam: normocephalic - Eye Eye exam: Present: PERRL, EOMI - ENT ENT exam: Present: mucous membranes dry - Neck Neck exam: Present: trachea midline - Respiratory Respiratory exam: Present: wheezes. Absent: respiratory distress - Cardiovascular Cardiovascular exam: Present: regular rate, systolic murmur, +S4 - Abdominal Exam Abdominal exam: Present: soft - Extremities Exam Extremities exam: Absent: calf tenderness - Neurological Exam Neurological exam: Present: alert, oriented X3, CN II-XII intact - Psychiatric Psychiatric exam: Present: normal affect - Skin Skin exam: Absent: rash
--- NOTE | 2019-02-15 07:16 | Pharmacy Consult Notes ---
[facility] Pharmacy VTE Monitoring - Patient Demographics Admission date: 02/14/19 Report Date: 02/15/19 Time: 07:15 Allergies/Adverse Reactions: Patient Allergies nickel Allergy (Intermediate, Verified 01/30/19 20:31) I-RASH silk Allergy (Mild, Verified 01/30/19 20:31) I-RASH cefaclor Allergy (Unknown, Verified 01/30/19 20:31) RASH/DIFF BREATHING ibuprofen Allergy (Unknown, Verified 01/30/19 20:31) NA-NAUSEA/VOMITING levofloxacin [From Levaquin] Allergy (Unknown, Verified 01/30/19 20:31) Unknown allergy reaction morphine Allergy (Unknown, Verified 01/30/19 20:31) "BOTTOMS OUT UP" nitrofurantoin [From MACROBID] Allergy (Unknown, Verified 01/30/19 20:) Unknown allergy reaction Sulfa (Sulfonamide Antibiotics) Allergy (Unknown, Verified 01/30/19 20:31) Unknown allergy reaction SURGICAL STEEL Allergy (Intermediate, Uncoded 03/01/17 14:04) I-RASH Height: 1.57 m Weight: 98.486 kg Patient Problems: Current Active Problems Acute exacerbation of chronic obstructive airways disease (Acute) Obesity (Acute) - VTE Risk Labs: VTE Related Lab Results Hgb 14.0 g/dL (12.2-16.2) 02/14/19 19:30 Hct 45.8 % (37.0-47.0) 02/14/19 19:30 Plt Count 193 K/mm3 (142-424) 02/14/19 19:30 BUN 8 mg/dL (7-18) 02/14/19 19:30 Creatinine 0.74 mg/dL (0.55-1.02) 02/14/19 19:30 Estimated Creat Clear 87 mL/min (50-200) 02/14/19 19:30 Was VTE Risk Assessment Performed: Yes VTE Score: 6 VTE Risk Level: Moderate Risk Clinical Trial Participant: No - Prophylaxis VTE Prophylaxis Ordered?: Yes Types of VTE Prophylaxis: TEDS Knee High
[2019-02-15 07:35] LABS: Eosinophils % 0.1 % (0.1-12.0); Mean Platelet Volume 7.3 fl (7.4-10.4); Monocytes # 0.1 K/mm3 (0.1-1.0)
[2019-02-15 07:44] LABS: Basophils % 0.1 % (0.1-2.0); Lymphocytes # 0.8 K/mm3 (0.7-4.5); Lymphocytes % 15.9 % (10-50); Mean Corpuscular Volume 89.6 fl (81-99); Monocytes % 1.4 % (1.7-9.3); Neutrophils # 4.3 K/mm3 (1.8-7.8); Neutrophils % 82.4 % (37.0-80.0); Platelet Count 165 K/mm3 (142-424); Red Blood Count 4.48 M/mm3 (4.20-5.40); Red Cell Distribution Width 14.2 % (11.5-17.5); White Blood Count 5.3 K/mm3 (4.8-10.8)
[2019-02-15 07:47] LABS: Anion Gap 11.5 mEq/L (5-15)
[2019-02-15 07:53] LABS: Hemoglobin 12.5 g/dL (12.2-16.2)
--- NOTE | 2019-02-15 08:26 | History & Physical Report ---
*Admission Date: 02/14/19 <Elisabeth Fiore 02/15/19 08:35> *Chief complaint: chest pain, shortness of breath <Elisabeth Fiore 02/15/19 08:35> *History of present illness: Ms. Dominguez is a 63-year-old female with a history of chronic asthma and COPD, diabetes, hypertension, hyperlipidemia, hypothyroidism, and intermittent SVT, and GERD. She states yesterday she did physical therapy and then began having some pain in her chest and her epigastric area. She states she had some shortness of breath and therefore presented to the emergency room for further evaluation and treatment. nursing director documented some hypoxia. Her chest x-ray was normal. She was admitted with a COPD exacerbation. <Elisabeth Fiore 02/15/19 08:35> [facility] History I have reviewed the patient's past medical history: Yes <Elisabeth Fiore 02/15/19 08:35> Medical History: Reports:: Asthma, Congestive Heart Failure, Chronic Obstructive Pulmonary Disease (COPD), Depression, Diabetes Mellitus Type 2, Gastroesophageal Reflux Disease(GERD), Hyperlipidemia, Hypertension Denies:: Cancer, Diabetes Mellitus Type 1, Internal Pacemaker, Lung Disease, MRSA, Seizures <Elisabeth Fiore 02/15/19 08:35> *Have you ever received a pneumonia vaccine?: Yes <Elisabeth Fiore 02/15/19 08:35> *Have you received a flu vaccine this season?: Yes <Elisabeth Fiore 02/15/19 08:35> Other Medical History: Reports: Anemia, Arthritis, Hypothyroidism, Other (STROKE) <Elisabeth Fiore 02/15/19 08:35> Laterality Cases: Left: Arthroscopy Knee, Right: Breast Biopsy <Elisabeth Fiore 02/15/19 08:35> Other Surgeries: Yes: Cardiac Catheterization, Cholecystectomy, Colonoscopy, C- section, Other (GALLBLADDER,CYSTOSCOPY WITH URETERAL DIL.,CYSTO WITH LEFT RETROGRADE PYELOG). No: Pacemaker <Elisabeth Fiore 02/15/19 08:35> Amputation: No <Elisabeth Fiore 02/15/19 08:35> Fractures: No <Elisabeth Fiore 02/15/19 08:35> Comment: Endometrial polypectomy <Elisabeth Fiore 02/15/19 08:35> - *Social History Smoking Status: Former smoker <[facility] 02/15/19 08:35> [facility]: [facility] 08:35> # Packs/Day (cigarettes): 1 <[facility] 02/15/19 08:35> #Yrs smoked (if former smoker): 40 <[facility] 02/15/19 08:35> Smoking End Date: 01/31/19 <[facility] 02/15/19 08:35> Alcohol Intake: never <[facility] 02/15/19 08:35> Substance Use Type: denies use <[facility] 02/15/19 08:35> *Occupational Status:: retired <[facility] 02/15/[facility] 08:35> Housing: [facility] 02/15/[facility] 08:35> Household Members: family, friend(s) <[facility] 02/15/19 08:35> *Travel in the last 8 weeks: None <[facility] 02/15/19 08:35> - Psychiatric History Pschychiatric History:: Reports:: Depression <[facility] 02/15/19 08:35> Family Hx:: Cancer, Diabetes, Heart Attack, Hyperlipidemia, Kidney Disease <Mumtaz Fiorea 02/15/19 08:35> Review of Systems - Constitutional Reports weakness, Denies chills, Denies fever(s) <[facility] 02/15/19 08:35> - Eyes Denies blurry vision, Denies double vision [facility] 02/15/19 08:35> - ENT Reports nasal congestion, Denies sore throat [facility] 02/15/19 08:35> - *Cardiovascular Reports chest pain, Reports shortness of breath <[facility] 02/15/19 08:35> - *Respiratory Reports shortness of breath, Denies cough <[facility] 02/15/19 08:35> - *Gastrointestinal Reports abdominal pain (epigastric), Reports loose stools, Reports nausea <[facility] 02/15/19 08:35> - *Genitourinary Denies difficulty urinating, Denies painful urination <Elisabeth Fiore - 02/15/19 08:35> - *Musculoskeletal Denies joint pain, Denies body aches <Elisabeth Fiore - 02/15/19 08:35> - *Neurologic Reports weakness, Denies headache(s), Denies seizure-like activity, Denies dizziness <Elisabeth Fiore - 02/15/19 08:35> Meds Home Medications Medication Instructions Recorded Confirmed Type diazepam 10 mg tablet 10 mg PO QIDP PRN tab 05/03/17 02/15/19 History hydrocodone 10 mg-acetaminophen 1 tab PO Q6H 05/03/17 02/15/19 History 325 mg tablet atenoloL [Atenolol 25mg Tab] 25 mg PO DAILY 10/05/17 02/15/19 History Dicyclomine HCl [Bentyl 10mg 10 mg PO Q6HP PRN 01/31/19 02/14/19 History capsule] Fluticasone Propionate 1 spray NOSTRIL-B DAILY 01/31/19 02/15/19 History Levothyroxine Sodium 50 mcg PO DAILY 01/31/19 02/15/19 History [Levothyroxine 50mcg (0.05mg) Tab] Metformin HCl 500 mg PO HS 01/31/19 02/15/19 History Rosuvastatin Calcium 20 mg PO HS 01/31/19 02/15/19 History Trazodone HCl 300 mg PO HS 01/31/19 02/15/19 History Omeprazole [Omeprazole 40mg 40 mg PO BID 02/01/19 02/15/19 History Capsule] Sertraline HCl [Zoloft 100mg 100 mg PO BID 02/01/19 02/15/19 History tablet] Cholecalciferol (Vitamin D3) 1,000 unit PO DAILY 02/14/19 02/15/19 History [Vitamin D3 1,000 Unit Cap] Promethazine/Dextromethorphan 5 ml PO Q4HP PRN 02/14/19 02/15/19 History [Promethazine-Dm Syrup] Ergocalciferol (Vitamin D2) 50,000 units PO WEEKLY 02/15/19 02/15/19 History [Drisdol 50,000 units (1.25mg) capsule] Furosemide [Furosemide 40MG tAB] 60 mg PO DAILY PRN 02/15/19 02/15/19 History Nystatin [Nystatin Cr 100,000 1 applic TP BID 02/15/19 02/15/19 History Units/GM 30GM] <Reynold Khan - 02/15/19 16:07> Allergies Allergy/AdvReac Type Severity Reaction Status Date / Time nickel Allergy Intermediate I-RASH Verified 01/30/19 20:31 silk Allergy Mild I-RASH Verified 01/30/19 20:31 cefaclor Allergy Unknown RASH/DIFF Verified 01/30/19 20:31 BREATHING ibuprofen Allergy Unknown NA-NAUSEA/V Verified 01/30/19 20:31 OMITING levofloxacin [From Levaquin] Allergy Unknown Unknown Verified 01/30/19 20:31 allergy reaction morphine Allergy Unknown "BOTTOMS Verified 01/30/19 20:31 OUT UP" nitrofurantoin Allergy Unknown Unknown Verified 01/30/19 20:31 [From MACROBID] allergy reaction Sulfa (Sulfonamide Allergy Unknown Unknown Verified 01/30/19 20:31 Antibiotics) allergy reaction SURGICAL STEEL Allergy Intermediate I-RASH Uncoded 03/01/17 14:04 <BillReynold Michael - 02/15/19 16:07> Exam Vital signs and Labs for Last 24 Hours: Temp Pulse Resp BP Pulse Ox 98.0 F 68 16 159/79 H 93 L 02/15/19 12:00 02/15/19 13:45 02/15/19 13:49 02/15/19 12:00 02/15/19 12:00 Laboratory Results - last 24 hr 02/14/19 19:20: Influenza Type A Ag Negative, Influenza Type B Ag Negative 02/14/19 19:20: Group A Strep Rapid Negative 02/14/19 19:30: WBC 9.5, RBC 5.14, Hgb 14.0, Hct 45.8, MCV 89.0, MCH 27.3, MCHC 30.6 L, RDW 14.1, Plt Count 193, MPV 7.2 L, Neut % (Auto) 68.7, Lymph % (Auto) 27.1, [place] % (Auto) 3.0, Eos % (Auto) 1.0, Baso % (Auto) 0.3, Neut # (Auto) 6.5, Lymph # (Auto) 2.6, [place] # (Auto) 0.3, Eos # (Auto) 0.1, Baso # (Auto) 0.0, ESR 15 02/14/19 19:30: Sodium 140, Potassium 4.3, Chloride 101, Carbon Dioxide 31, Anion Gap 12.3, BUN 8, Creatinine 0.74, Estimated Creat Clear 87, Estimated GFR 79, Est GFR ( Amer) 96, Glucose 143 H, Calcium 9.2, Total Bilirubin 0.2, AST 21, ALT 39, Alkaline Phosphatase 245 H, Troponin I < 0.02, C-Reactive Protein 1.1 H, Total Protein 8.6 H, Albumin 3.5, Globulin 5.1 H, Albumin/Globulin Ratio 0.7 L 02/14/19 19:30: Lactate 1.0 02/14/19 19:36: Specimen Source Right radial, O2 % 32, ABG pH 7.31 L, ABG pCO2 55.8 H, ABG pO2 64.9 L, ABG HCO3 27.2 H, ABG Total CO2 28.9 H, ABG O2 Saturation 91, ABG Base Excess 0.8, Kofi Test Acceptable 02/14/19 22:30: Troponin I < 0.02 02/15/19 01:45: Troponin I < 0.02 02/15/19 05:19: POC Glucose 189 H 02/15/19 07:05: WBC 5.3 D, RBC 4.48, Hgb 12.5 D, Hct 40.0, MCV 89.6, MCH 27.8, MCHC 31.0 L, RDW 14.2, Plt Count 165, MPV 7.3 L, Neut % (Auto) 82.4 H, Lymph % (Auto) 15.9, [place] % (Auto) 1.4 L, Eos % (Auto) 0.1, Baso % (Auto) 0.1, Neut # (Auto) 4.3, Lymph # (Auto) 0.8, [place] # (Auto) 0.1, Eos # (Auto) 0.0, Baso # (Auto) 0.0 02/15/19 07:05: Sodium 138, Potassium 4.5, Chloride 103, Carbon Dioxide 28, Anion Gap 11.5, BUN 8, Creatinine 0.66, Estimated Creat Clear 88, Estimated GFR 90, Est GFR ( Amer) 109, Glucose 195 H D, Calcium 9.0, Magnesium 1.9 02/15/19 11:38: POC Glucose 183 H <Reynold Khan - 02/15/19 16:07> Temp Pulse Resp BP Pulse Ox 98.1 F 69 16 125/71 91 L 02/15/19 04:00 02/15/19 05:59 02/15/19 04:00 02/15/19 04:00 02/15/19 05:59 Laboratory Results - last 24 hr 02/14/19 19:20: Influenza Type A Ag Negative, Influenza Type B Ag Negative 02/14/19 19:20: Group A Strep Rapid Negative 02/14/19 19:30: WBC 9.5, RBC 5.14, Hgb 14.0, Hct 45.8, MCV 89.0, MCH 27.3, MCHC 30.6 L, RDW 14.1, Plt Count 193, MPV 7.2 L, Neut % (Auto) 68.7, Lymph % (Auto) 27.1, [place] % (Auto) 3.0, Eos % (Auto) 1.0, Baso % (Auto) 0.3, Neut # (Auto) 6.5, Lymph # (Auto) 2.6, [place] # (Auto) 0.3, Eos # (Auto) 0.1, Baso # (Auto) 0.0, ESR 15 02/14/19 19:30: Sodium 140, Potassium 4.3, Chloride 101, Carbon Dioxide 31, Anion Gap 12.3, BUN 8, Creatinine 0.74, Estimated Creat Clear 87, Estimated GFR 79, Est GFR ( Amer) 96, Glucose 143 H, Calcium 9.2, Total Bilirubin 0.2, AST 21, ALT 39, Alkaline Phosphatase 245 H, Troponin I < 0.02, C-Reactive Protein 1.1 H, Total Protein 8.6 H, Albumin 3.5, Globulin 5.1 H, Albumin/Glob ulin Ratio 0.7 L 02/14/19 19:30: Lactate 1.0 02/14/19 19:36: Specimen Source Right radial, O2 % 32, ABG pH 7.31 L, ABG pCO2 5 5.8 H, ABG pO2 64.9 L, ABG HCO3 27.2 H, ABG Total CO2 28.9 H, ABG O2 Saturation 91, ABG Base Excess 0.8, Kofi Test Acceptable 02/14/19 22:30: Troponin I < 0.02 02/15/19 01:45: Troponin I < 0.02 02/15/19 05:19: POC Glucose 189 H 02/15/19 07:05: WBC 5.3 D, RBC 4.48, Hgb 12.5 D, Hct 40.0, MCV 89.6, MCH 27.8, MCHC 31.0 L, RDW 14.2, Plt Count 165, MPV 7.3 L, Neut % (Auto) 82.4 H, Lymph % (Auto) 15.9, [place] % (Auto) 1.4 L, Eos % (Auto) 0.1, Baso % (Auto) 0.1, Neut # (Auto) 4.3, Lymph # (Auto) 0.8, [place] # (Auto) 0.1, Eos # (Auto) 0.0, Baso # (Auto) 0.0 02/15/19 07:05: Sodium 138, Potassium 4.5, Chloride 103, Carbon Dioxide 28, Anion Gap 11.5, BUN 8, Creatinine 0.66, Estimated Creat Clear 88, Estimated GFR 90, Est GFR ( Amer) 109, Glucose 195 H D, Calcium 9.0, Magnesium 1.9 <Elisabeth Fiore - 02/15/19 08:35> I & O for Last 24 hours: Intake & Output 02/13/19 02/14/19 02/15/19 02/16/19 11:59 11:59 11:59 11:59 Intake Total 1626 / 1626 559 / 559 Output Total 250 / 250 Balance 1376 / 1376 559 / 559 Weight 217 lb 1.991 oz <Reynold Khan - 02/15/19 16:07> Intake & Output 02/12/19 02/13/19 02/14/19 02/15/19 11:59 11:59 11:59 11:59 Intake Total 1506 / 1506 Output Total 250 / 250 Balance 1256 / 1256 Weight 217 lb 1.991 oz <Elisabeth Fiore - 02/15/19 08:35> - Constitutional no acute distress [facility] 08:35> - *Routine HEENT Exam Head: Present: normocephalic <[facility] 02/15/19 08:35> Eye: Present: EOMI, PERRL [facility] 02/15/19 08:35> ENT: Present: mucous membranes dry [facility] 02/15/19 08:35> - *Routine Neck Exam Present: supple. Absent: lymphadenopathy [facility] 02/15/19 08:35> - *Routine Respiratory Exam Present: decreased breath sounds, CTA bilaterally [facility] 02/15/19 08:35> - *Routine Cardiovascular Exam Present: RRR [facility] 02/15/19 08:35> - *Routine Abdominal Exam Present: soft, normoactive bowel sounds, tenderness (over the suprapubic area) <[facility] 02/15/19 08:35> - *Routine Extremities Exam Absent: cyanosis, clubbing, edema [facility] 02/15/19 08:35> - *Routine Skin Exam Present: warm. Absent: rash [facility] 08:35> - *Routine Neurological Exam Present: alert, oriented X3 [facility] 02/15/19 08:35> H&P: Result - Impressions CXR - nothing acute <[facility] 02/15/19 08:35> Assessment and Plan (1) Hypoxia Current visit: Yes Status: Acute Category: Medical Code(s): R09.02 - Hypoxemia (2) Acute exacerbation of chronic obstructive airways disease Current visit: Yes Status: Acute Category: Medical Code(s): J44.1 - Chronic obstructive pulmonary disease with (acute) exacerbation (3) Abdominal pain Current visit: No Status: Acute Qualifiers: Abdominal location: unspecified location Qualified Code(s): R10.9 - Unspecified abdominal pain Category: Medical Code(s): R10.9 - Unspecified abdominal pain (4) Hypertension Current visit: No Status: Chronic Category: Medical Code(s): I10 - Essential (primary) hypertension (5) Hypothyroidism Current visit: No Status: Chronic Category: Medical Code(s): E03.9 - Hypothyroidism, unspecified (6) Type 2 diabetes mellitus Current visit: No Status: Chronic Category: Medical Code(s): E11.9 - Type 2 diabetes mellitus without complications <Elisabeth Fiore - 02/15/19 08:23> (1) Hypoxia Current visit: Yes Status: Acute Category: Medical Code(s): R09.02 - Hypoxemia (2) Acute exacerbation of chronic obstructive airways disease Current visit: Yes Status: Acute Category: Medical Code(s): J44.1 - Chronic obstructive pulmonary disease with (acute) exacerbation (3) Abdominal pain Current visit: No Status: Acute Qualifiers: Abdominal location: unspecified location Qualified Code(s): R10.9 - Unspecified abdominal pain Category: Medical Code(s): R10.9 - Unspecified abdominal pain (4) Hypertension Current visit: No Status: Chronic Category: Medical Code(s): I10 - Essential (primary) hypertension (5) Hypothyroidism Current visit: No Status: Chronic Category: Medical Code(s): E03.9 - Hypothyroidism, unspecified (6) Type 2 diabetes mellitus Current visit: No Status: Chronic Category: Medical Code(s): E11.9 - Type 2 diabetes mellitus without complications <Reynold Khan - 02/15/19 16:07> - Assessment and plan all Dx Assessment and Plan for all problems:: Patient seen and examined. She is comfortable at present. Concur with above assessment and plan. <Reynold Khan - 02/15/19 16:07> Patient's shortness of breath has improved today. Her white blood cell count is normal and her chest x-ray showed nothing acute, therefore we will discontinue antibiotics. We will get a urinalysis due to some suprapubic tenderness. We will continue nebs and steroids. <Elisabeth Fiore - 02/15/19 08:35>
[2019-02-15 17:51] LABS: Microscopic, Urine URINE MICROSCOPIC (MICROSCOPIC)
[2019-02-15 17:55] LABS: Appearance,Urine CLEAR (Clear); Bilirubin,Urine Negative (Negative); Blood, Urine Negative (Negative); Color,Urine YELLOW (Yellow); Glucose,Urine (UA) Negative (Negative); Ketones,Urine Negative (Negative); Leukocyte Esterase,Urine 1+ (Negative); PH,Urine 7.5 (5.0-8.5); Protein,Urine Negative (Negative); Specific Gravity, Urine 1.015 (1.005-1.030); Urobilinogen,Urine 0.2 EU/dl (0.2)
[2019-02-15 18:11] LABS: WBC,Urine 20-50 #/hpf (0-3)
[2019-02-15 18:13] LABS: Bacteria,Urine Trace /lpf
--- NOTE | 2019-02-16 08:34 | Progress Note ---
<Elisabeth Fiore - Last Filed: 02/16/19 08:31> Internal Medicine - PN: Subj *Date: 02/16/19 *Time: 08:31 Interval history: Patient states she is feeling a little bit better today. She denies any chest pain and states her shortness of breath is improved. She slept well last night and is sitting up eating breakfast this morning. Exam Vital signs and Labs for Last 24 Hours: Temp Pulse Resp BP Pulse Ox 98.5 F 54 L 17 139/69 92 L 02/16/19 04:00 02/16/19 06:41 02/16/19 04:00 02/16/19 04:00 02/16/19 06:41 Laboratory Results - last 24 hr 02/15/19 11:38: POC Glucose 183 H 02/15/19 16:41: POC Glucose 181 H 02/15/19 17:45: Urine Color Yellow, Urine Appearance Clear, Urine pH 7.5, Ur Specific [place] 1.015, Urine Protein Negative, Urine Glucose (UA) Negative, Urine Ketones Negative, Urine Blood Negative, Urine Nitrate Negative, Urine Bilirubin Negative, Urine Urobilinogen 0.2, Ur Leukocyte Esterase 1+ A, Urine RBC 3-5, Urine WBC 20-50, Ur Squamous Epith Cells 5-10, Urine Bacteria Trace 02/15/19 21:59: POC Glucose 210 H 02/16/19 06:59: POC Glucose 215 H I & O for Last 24 hours: Intake & Output 02/13/19 02/14/19 02/15/19 02/16/19 11:59 11:59 11:59 11:59 Intake Total 1626 / 1626 1596 / 1596 Output Total 250 / 250 700 / 700 Balance 1376 / 1376 896 / 896 Weight 217 lb 1.991 oz 215 lb 6 oz Microbiology Reports for the Last 24 Hours: Microbiology 02/14/19 19:30 Blood Blood Culture - Preliminary - Constitutional no acute distress - *Routine Respiratory Exam Present: wheezes (bilaterally), crackles (faint bibasilar) - *Routine Cardiovascular Exam Present: RRR - *Routine Abdominal Exam Present: soft, normoactive bowel sounds. Absent: tenderness - *Routine Extremities Exam Absent: cyanosis, clubbing, edema - *Routine Skin Exam Present: warm. Absent: rash - *Routine Neurological Exam Present: alert, oriented X3 Assessment and Plan (1) Hypoxia Current visit: Yes Status: Acute Category: Medical Code(s): R09.02 - Hypoxemia (2) Acute exacerbation of chronic obstructive airways disease Current visit: Yes Status: Acute Category: Medical Code(s): J44.1 - Chronic obstructive pulmonary disease with (acute) exacerbation (3) Abdominal pain Current visit: No Status: Acute Qualifiers: Abdominal location: unspecified location Qualified Code(s): R10.9 - Unspecified abdominal pain Category: Medical Code(s): R10.9 - Unspecified abdominal pain (4) Hypertension Current visit: No Status: Chronic Category: Medical Code(s): I10 - Essential (primary) hypertension (5) Hypothyroidism Current visit: No Status: Chronic Category: Medical Code(s): E03.9 - Hypothyroidism, unspecified (6) Type 2 diabetes mellitus Current visit: No Status: Chronic Category: Medical Code(s): E11.9 - Type 2 diabetes mellitus without complications - Assessment and plan all Dx Assessment and Plan for all problems:: Nursing reports patient's blood culture Gram stain has been growing gram- positive bacilli. Will await final blood cultures. We will get a repeat chest x-ray today. <Reynold Khan - Last Filed: 02/16/19 13:11> Internal Medicine - PN: Subj *Date: 02/16/19 *Time: 13:09 Exam Vital signs and Labs for Last 24 Hours: Temp Pulse Resp BP Pulse Ox 98.0 F 69 16 126/58 L 96 02/16/19 08:00 02/16/19 10:12 02/16/19 08:00 02/16/19 08:00 02/16/19 10:12 Laboratory Results - last 24 hr 02/15/19 16:41: POC Glucose 181 H 02/15/19 17:45: Urine Color Yellow, Urine Appearance Clear, Urine pH 7.5, Ur Specific [place] 1.015, Urine Protein Negative, Urine Glucose (UA) Negative, Urine Ketones Negative, Urine Blood Negative, Urine Nitrate Negative, Urine Bilirubin Negative, Urine Urobilinogen 0.2, Ur Leukocyte Esterase 1+ A, Urine RBC 3-5, Urine WBC 20-50, Ur Squamous Epith Cells 5-10, Urine Bacteria Trace 02/15/19 21:59: POC Glucose 210 H 02/16/19 06:59: POC Glucose 215 H 02/16/19 11:52: POC Glucose 279 H I & O for Last 24 hours: Intake & Output 02/14/19 02/15/19 02/16/19 02/17/19 11:59 11:59 11:59 11:59 Intake Total 1626 / 1626 1596 / 1956 360 / 360 Output Total 250 / 250 700 / 700 Balance 1376 / 1376 896 / 1256 360 / 360 Weight 217 lb 1.991 oz 215 lb 6 oz Microbiology Reports for the Last 24 Hours: Microbiology 02/14/19 19:30 Blood Blood Culture - Preliminary Assessment and Plan (1) Hypoxia Current visit: Yes Status: Acute Category: Medical Code(s): R09.02 - Hypoxemia (2) Acute exacerbation of chronic obstructive airways disease Current visit: Yes Status: Acute Category: Medical Code(s): J44.1 - Chronic obstructive pulmonary disease with (acute) exacerbation (3) Abdominal pain Current visit: No Status: Acute Qualifiers: Abdominal location: unspecified location Qualified Code(s): R10.9 - Unspecified abdominal pain Category: Medical Code(s): R10.9 - Unspecified abdominal pain (4) Hypertension Current visit: No Status: Chronic Category: Medical Code(s): I10 - Essential (primary) hypertension (5) Hypothyroidism Current visit: No Status: Chronic Category: Medical Code(s): E03.9 - Hypot hyroidism, unspecified (6) Type 2 diabetes mellitus Current visit: No Status: Chronic Category: Medical Code(s): E11.9 - Type 2 diabetes mellitus without complications - Assessment and plan all Dx Assessment and Plan for all problems:: Patient seen and examined. She was weaned to RA last night and O2 sats have been >92%. Tolerating OOB activity. She is stable for discharge later today. Will f/u with cultures as outpt if still pending at discharge.
--- NOTE | 2019-02-16 16:38 | Electrocardiograph Report ---
APPROVED REPORT Exam: Resting ECG HR:78 bpm ECG Measurements Heart Rate 78 AXES ID 178 P 79 QRSd 72 QRS 59 QT 386 T50 QTc 440 <Conclusion> Normal sinus rhythm Normal ECG Electronically signed by : Rachid Fields, 02/16/2019 16:38:20
--- NOTE | 2019-02-18 13:16 | Discharge Summary ---
General - General Admission date:: 02/14/19 <Reynold Khan - 03/03/19 08:41> 02/14/19 <Elisabeth Fiore - 02/18/19 13:16> Discharge date: 02/16/19 <Elisabeth Fiore - 02/18/19 13:16> HPI HPI: Ms. Dominguez is a 63-year-old female with a history of chronic asthma and COPD, diabetes, hypertension, hyperlipidemia, hypothyroidism, and intermittent SVT, and GERD. She stated the day prior to admission, she did physical therapy and then began having some pain in her chest and her epigastric area. She stated she had some shortness of breath and therefore presented to the emergency room for further evaluation and treatment. flux plant operator documented some hypoxia. Her chest x-ray was normal. She was admitted with a COPD exacerbation. <Elisabeth Fiore - 02/18/19 13:16> Hospital Course Hospital Course: Patient's chest x-ray showed nothing acute. She was started on antibiotics, nebs, and steroids. Her shortness of breath did improve. Due to the fact that her white blood cell count was normal and her chest x-ray came back negative, her antibiotics were discontinued. A urinalysis was ordered as the patient had some mild suprapubic tenderness. By 02/16/2019, she was feeling better and denied any chest pain or shortness of breath. She was able to sleep and eat. A repeat chest x-ray was ordered and showed nothing acute. She was able to be weaned to room air and her oxygen sats were above 92%. She was tolerating out of bed activity. Her urine culture showed mixed organisms suggesting contamination. Her blood cultures are still pending but the Gram stain was growing gram-positive bacilli. She was stable to be discharged home and Dr. Khan will follow up with her on her culture results once they are available. <Elisabeth Fiore - 02/18/19 13:16> Objective Vital signs: Temp Pulse Resp BP Pulse Ox 98.0 F 69 16 126/58 L 96 02/16/19 08:00 02/16/19 10:12 02/16/19 08:00 02/16/19 08:00 02/16/19 10:12 <Reynold Khan - 03/03/19 08:41> Temp Pulse Resp BP Pulse Ox 98.0 F 69 16 126/58 L 96 02/16/19 08:00 02/16/19 10:12 02/16/19 08:00 02/16/19 08:00 02/16/19 10:12 <Elisabeth Fiore - 02/18/19 13:16> Narrative: - Constitutional no acute distress - *Routine Respiratory Exam Present: wheezes (bilaterally), crackles (faint bibasilar) - *Routine Cardiovascular Exam Present: RRR - *Routine Abdominal Exam Present: soft, normoactive bowel sounds. Absent: tenderness - *Routine Extremities Exam Absent: cyanosis, clubbing, edema - *Routine Skin Exam Present: warm. Absent: rash - *Routine Neurological Exam Present: alert, oriented X3 <Elisabeth Fiore - 02/18/19 13:16> Results Labs on day of discharge: Preliminary micro results at discharge 02/14/19 19:30 Blood Culture - Preliminary Blood Gram Positive Bacilli 02/14/19 19:30 Blood Culture - Preliminary Blood NO GROWTH AFTER 48 HOURS <Elisabeth Fiore - 02/18/19 13:16> DS: Diagnosis - Discharge Diagnosis (1) Hypoxia Status: Acute (2) Acute exacerbation of chronic obstructive airways disease Status: Acute (3) Abdominal pain Status: Acute (4) Hypertension Status: Chronic (5) Hypothyroidism Status: Chronic (6) Type 2 diabetes mellitus Status: Chronic <Elisabeth Fiore - 02/18/19 13:12> (1) Hypoxia Status: Acute (2) Acute exacerbation of chronic obstructive airways disease Status: Acute (3) Abdominal pain Status: Acute (4) Hypertension Status: Chronic (5) Hypothyroidism Status: Chronic (6) Type 2 diabetes mellitus Status: Chronic <Reynold Khan - 03/03/19 08:41> Discharge Plan - Patient Discharge Instructions ACTIVITY: Continue current activity <Elisabeth Fiore - 02/18/19 13:16> DIET: continue same diet <Elisabeth Fiore - 02/18/19 13:16> Patient Instructions: Chronic Obstructive Pulmonary Disease, Pneumococcal Vaccine, DI for Chronic Obstructive Pulmonary Disease <Reynold Khan - 03/03/19 08:41> Forms: <Reynold Khan - 03/03/19 08:41> - Follow up Plan Follow up with: Reynold Khan MD [Primary Care Provider] - 1 week <Reynold Khan - 03/03/19 08:41> Disposition: Home Health Service <Reynold Khan - 03/03/19 08:41> Home Medications: Home Medications Medication Instructions Recorded Confirmed Type diazepam 10 mg tablet 10 mg PO QIDP PRN tab 05/03/17 02/15/19 History hydrocodone 10 mg-acetaminophen 1 tab PO Q6H 05/03/17 02/15/19 History 325 mg tablet atenoloL [Atenolol 25mg Tab] 25 mg PO DAILY 10/05/17 02/15/19 History Dicyclomine HCl [Bentyl 10mg 10 mg PO Q6HP PRN 01/31/19 02/14/19 History capsule] Fluticasone Propionate 1 spray NOSTRIL-B DAILY 01/31/19 02/15/19 History Levothyroxine Sodium 50 mcg PO DAILY 01/31/19 02/15/19 History [Levothyroxine 50mcg (0.05mg) Tab] Metformin HCl 500 mg PO HS 01/31/19 02/15/19 History Rosuvastatin Calcium 20 mg PO HS 01/31/19 02/15/19 History Trazodone HCl 300 mg PO HS 01/31/19 02/15/19 History Omeprazole [Omeprazole 40mg 40 mg PO BID 02/01/19 02/15/19 History Capsule] Sertraline HCl [Zoloft 100mg 100 mg PO BID 02/01/19 02/15/19 History tablet] Cholecalciferol (Vitamin D3) 1,000 unit PO DAILY 02/14/19 02/15/19 History [Vitamin D3 1,000 Unit Cap] Promethazine/Dextromethorphan 5 ml PO Q4HP PRN 02/14/19 02/15/19 History [Promethazine-Dm Syrup] Ergocalciferol (Vitamin D2) 50,000 units PO WEEKLY 02/15/19 02/15/19 History [Drisdol 50,000 units (1.25mg) capsule] Furosemide [Furosemide 40MG tAB] 60 mg PO DAILY PRN 02/15/19 02/15/19 History Nystatin [Nystatin Cr 100,000 1 applic TP BID 02/15/19 02/15/19 History Units/GM 30GM] methylPREDNISolone [Medrol 4mg 4 mg PO DIRECTED #21 tab 02/16/19 Rx tab] <Reynold Khan - 03/03/19 08:41> Prescriptions/Medication Reconciliation: New methylPREDNISolone [Medrol 4mg tab] 4 mg PO DIRECTED #21 tab Continued diazepam 10 mg tablet 10 mg PO QIDP PRN tab PRN Reason: Anxiety hydrocodone 10 mg-acetaminophen 325 mg tablet 1 tab PO Q6H atenoloL [Atenolol 25mg Tab] 25 mg PO DAILY Dicyclomine HCl [Bentyl 10mg capsule] 10 mg PO Q6HP PRN PRN Reason: pain/stomach Fluticasone Propionate 1 spray NOSTRIL-B DAILY Rosuvastatin Calcium 20 mg PO HS Trazodone HCl 300 mg PO HS Sertraline HCl [Zoloft 100mg tablet] 100 mg PO BID Cholecalciferol (Vitamin D3) [Vitamin D3 1,000 Unit Cap] 1,000 unit PO DAILY Nystatin [Nystatin Cr 100,000 Units/GM 30GM] 1 applic TP BID Ergocalciferol (Vitamin D2) [Drisdol 50,000 units (1.25mg) capsule] 50,000 units PO WEEKLY Furosemide [Furosemide 40MG tAB] 60 mg PO DAILY PRN PRN Reason: FLUID Metformin HCl 500 mg PO HS Levothyroxine Sodium [Levothyroxine 50mcg (0.05mg) Tab] 50 mcg PO DAILY Omeprazole [Omeprazole 40mg Capsule] 40 mg PO BID Promethazine/Dextromethorphan [Promethazine-Dm Syrup] 5 ml PO Q4HP PRN PRN Reason: Nausea/COUGH <Reynold Khan - 03/03/19 08:41> - Problem Reconciliation Problems Reviewed?: Yes <Reynold Khan - 03/03/19 08:41> Yes <Elisabeth Fiore - 02/18/19 13:16> - Additional Information Additional Information: Patient seen and examined. Concur with plan for discharge as outlined above. <Reynold Khan - 03/03/19 08:41>
== END 2019-02-16 14:57 | disposition home health service (06) ==
LOC: 2ND 19:10 → ER 19:10 → 2ND 23:14
PROVIDERS: ADMIT Family Medicine; ATTEND Family Medicine
CPT/HCPCS: 36415; 71010; 71020; 71045; 71046; 80048; 80053; 81001; 82803; 82962; 83605; 83735; 84484; 85025; 85651; 86140; 87040; 87077; 87086; 87275; 87276; 87430; 93005; 94640; 94761; 96365; 96367; 96375; 99284; G0378; J0456; J2543

== ENCOUNTER 2019-09-13 23:15 | Observation (INO) | payer MEDICARE, SELFPAY ==
[2019-09-13 23:27] VITALS: BP 127/60; PULSE 73; RESP 16; TEMP 36.6; O2SAT 90; BMI 40.1
--- NOTE | 2019-09-13 23:32 | XR_ITS ---
PROCEDURE: XR CHEST PORTABLE CLINICAL HISTORY: SHORTNESS OF AIR COMPARISON: No exams were available for comparison FINDINGS: The cardiomediastinal silhouette and pulmonary vascularity are within normal limits. The lungs are clear without infiltrates, suspicious nodules, or pleural effusions. No acute bony abnormalities. IMPRESSION: No acute findings. Dictated by: Kofi Landis MD 09/14/2019 06:14 Electronically signed by Kofi Landis MD in [place] 09/14/2019 06:14
[2019-09-14] VITALS (12 sets, daily range): BP systolic 96–144; BP diastolic 54–86; PULSE 50–80; RESP 17–20; TEMP 36.4–37.2; O2SAT 82–98; BMI 40.1; BMI 34.2; BMI 34.1
[2019-09-14] LABS: Basophils # 0.1 K/mm3 (0-0.2); Basophils % 0.8 % (0.1-2.0); Eosinophils # 0.1 K/mm3 (0.0-0.4); Eosinophils % 1.7 % (0.1-12.0); Hemoglobin 13.4 g/dL (12.2-16.2); Lymphocytes # 2.7 K/mm3 (0.7-4.5); Lymphocytes % 42.1 % (10-50); Mean Corpuscular Hemoglobin 27.3 pg (27.0-31.2); Mean Corpuscular Volume 85.4 fl (81-99); Mean Platelet Volume 7.5 fl (7.4-10.4); Monocytes # 0.3 K/mm3 (0.1-1.0); Monocytes % 4.6 % (1.7-9.3); Neutrophils # 3.2 K/mm3 (1.8-7.8); Neutrophils % 50.8 % (37.0-80.0); Platelet Count 189 K/mm3 (142-424); Red Blood Count 4.92 M/mm3 (4.20-5.40); White Blood Count 6.3 K/mm3 (4.8-10.8)
[2019-09-14 00:04] LABS: Alanine Aminotransferase 8 U/L (12-78); Albumin Level 4.3 g/dl (3.5-5.0); Albumin/Globulin Ratio 1.1 (1.1-1.8); Alkaline Phosphatase 122 U/L (38-126); Anion Gap 10.3 mEq/L (5-15); Aspartate Amino Transferase 18 U/L (14-36); Bilirubin,Total 0.3 mg/dl (0.2-1.3); Blood Urea Nitrogen 11 mg/dl (7-17); Calcium 9.5 mg/dl (8.4-10.2); Carbon Dioxide 34 mmol/L (22.0-30.0); Chloride 95 mmol/L (98-107); Creatinine Clearance Estimated 97 mL/min (50-200); Estimated Glomerular Filt Rate 72 ml/min (>60); GFR (African American) 87 ML/MIN (>60); Glucose 124 mg/dl (74-100); Lactic Acid 1.3 mmol/L (0.7-2.1); Potassium 4.3 mmoL/L (3.5-5.1); Sodium 135 mmol/L (136-145); Total Protein,Serum 8.3 g/dl (6.3-8.2)
[2019-09-14 00:13] LABS: NT Pro Brain Natriuretic Pep. 86.4 pg/mL (0-125)
--- NOTE | 2019-09-14 00:15 | ECG_ITS ---
APPROVED REPORT Exam: Resting ECG HR:69 bpm ECG Measurements Heart Rate 69 AXES NH 170 P 41 QRSd 86 QRS 64 QT 438 T 48 QTc 469 <Conclusion> Normal sinus rhythm Normal ECG Electronically signed by : Rachid Fields, 09/17/2019 17:14:36
[2019-09-14 00:19] LABS: Troponin I < 0.01 ng/ml (0.00-0.034)
--- NOTE | 2019-09-14 00:42 | PC.NURSE ---
CALLED AND SPOKE WITH RUSS IN LAB.
--- NOTE | 2019-09-14 00:52 | HMH.EDSOB ---
ED Disposition Clinical Impression: Chest pain Qualifiers: Chest pain type: unspecified Qualified Code(s): R07.9 - Chest pain, unspecified Type 2 diabetes mellitus Qualifiers: Diabetes mellitus oil heaterman insulin use: unspecified fpc insulin use status Diabetes mellitus complication status: with other specified complication Qualified Code(s): E11.69 - Type 2 diabetes mellitus with other specified complication Hypothyroidism Qualifiers: Hypothyroidism type: acquired Qualified Code(s): E03.9 - Hypothyroidism, unspecified Obesity Qualifiers: Obesity type: due to excess calories Obesity classification: adult class 3 (BMI >= 40) Serious obesity comorbidity presence: with serious comorbidity Body mass index: BMI 40.0-44.9 Qualified Code(s): E66.01 - Morbid (severe) obesity due to excess calories; Z68.41 - Body mass index (BMI) 40.0-44.9, adult Disposition: Admitted as Observation Condition on Discharge: Good Referrals: Reynold Khan MD [Primary Care Provider] - - Critical Care Critical Care Time: No Attestation: On 09/13/19, the high probability of a clinically significant, sudden or life threatening deterioration of the following system(s) required my full and direct attention, intervention and personal management. The time I documented below is in addition to time spent performing reported procedures but includes the following listed in this critical care notation. Medical Decision Making - Medical Records Medical records reviewed: Yes: I reviewed the patient's medical records. - Saad Inquiry Pt receiving controlled substance: No Vital Signs: 09/13/19 23:27 Temperature 98 F Temperature Source Oral Pulse Rate [Right Brachial] 73 Respiratory Rate 16 Blood Pressure [Right Arm] 127/60 Blood Pressure Mean [Right Arm] 82 Blood Pressure Source [Right Arm] Automatic Cuff Blood Pressure Position [Right Arm] Sitting 02 Sat by Pulse Oximetry 90 L Oxygen Delivery Method Room Air - Lab Data Lab results reviewed: Yes: I reviewed the patient's lab results. Lab Results 09/13/19 23:40: WBC 6.3, RBC 4.92, Hgb 13.4, Hct 42.0, MCV 85.4, MCH 27.3, MCHC 32.0, RDW 15.0, Plt Count 189, MPV 7.5, Neut % (Auto) 50.8, Lymph % (Auto) 42.1, Hardeman % (Auto) 4.6, Eos % (Auto) 1.7, Baso % (Auto) 0.8, Neut # (Auto) 3.2, Lymph # (Auto) 2.7, Hardeman # (Auto) 0.3, Eos # (Auto) 0.1, Baso # (Auto) 0.1 09/13/19 23:40: Sodium 135 L, Potassium 4.3, Chloride 95 L, Carbon Dioxide 34 H, Anion Gap 10.3, BUN 11, Creatinine 0.80, Estimated Creat Clear 97, Estimated GFR 72, Est GFR ( Amer) 87, Glucose 124 H, Calcium 9.5, Total Bilirubin 0.3, AST 18, ALT 8 L, Alkaline Phosphatase 122, Troponin I < 0.01, Total Protein 8.3 H, Albumin 4.3, Globulin 4.0 H, Albumin/Globulin Ratio 1.1 09/13/19 23:40: NT-Pro-B Natriuret Pep 86.4 09/13/19 23:40: Lactate 1.3 09/14/19 00:00: SARS-CoV-2 IgG Ab (Rapid) Negative, SARS-CoV-2 IgM Ab (Rapid) Negative Result diagrams: 09/13/19 23:40 09/13/19 23:40 Orders (Tests/Meds): ED MEDICATIONS Discontinued Medications Generic Name Dose Route Start Last Admin Trade Name Alexq PRN Reason Stop Dose Admin Furosemide 40 mg 09/14/19 00:52 09/14/19 00:58 Lasix 40mg/4ml Vial IV 09/14/19 00:53 40 mg ONCE ONE Administration ORDERS Category Date Time Status Chest XR -- portable [XR chest portable] Stat Exams 09/13/19 23:32 Ordered Troponin I Q3H Lab 09/14/19 02:45 Ordered Troponin I Q3H Lab 09/14/19 05:45 Ordered - Radiology Data #1 Image(s): Chest Image Reviewed: Yes I reviewed the patient's radiology image Preliminary Findings: Abnormal (sl inc vascular congestion ) - ECG Data Tracing #1 Normal Sinus Rhythm: Yes Ischemic changes: non-specific ST-T wave changes - Physician Consults Physician Consulted: lynne Reason -: Admission - WINDY Score for Non-Stemi Age of Patient: 60-69 years old Heart Rate: 70-89 bpm Systolic Blood Pressure: 120-139 mmhg Serum
[2019-09-14 01:09] LABS: Coronavirus 19 IgG Antibody Negative (Negative); Coronavirus 19 IgM Antibody Negative (Negative)
--- NOTE | 2019-09-14 01:51 | PC.NURSE ---
SPOKE WITH LYDIA CM RE: LOVENOX DOSAGE
--- NOTE | 2019-09-14 02:19 | PC.NURSE ---
patient up to floor via wheelchair.
[2019-09-14 03:18] LABS: Troponin I < 0.01 ng/ml (0.00-0.034)
[2019-09-14 05:58] LABS: POC Glucose,Bedside 119 (70-110)
[2019-09-14 06:27] LABS: Basophils % 0.4 % (0.1-2.0); Eosinophils # 0.1 K/mm3 (0.0-0.4); Eosinophils % 1.5 % (0.1-12.0); Hematocrit 40.5 % (37.0-47.0); Hemoglobin 12.7 g/dL (12.2-16.2); Lymphocytes # 2.5 K/mm3 (0.7-4.5); Lymphocytes % 43.6 % (10-50); Mean Corpuscular HGB Conc 31.4 g/dL (31.8-35.4); Mean Corpuscular Hemoglobin 26.9 pg (27.0-31.2); Mean Corpuscular Volume 85.6 fl (81-99); Mean Platelet Volume 7.1 fl (7.4-10.4); Monocytes # 0.2 K/mm3 (0.1-1.0); Monocytes % 3.8 % (1.7-9.3); Neutrophils # 2.9 K/mm3 (1.8-7.8); Neutrophils % 50.7 % (37.0-80.0); Platelet Count 162 K/mm3 (142-424); Red Blood Count 4.73 M/mm3 (4.20-5.40); White Blood Count 5.8 K/mm3 (4.8-10.8)
--- NOTE | 2019-09-14 06:35 | PC.NURSE ---
Pt's home meds verified from list supplied by pt. Pt states she can have her POA bring her medication this AM.
[2019-09-14 06:41] LABS: Chloride 99 mmol/L (98-107); Potassium 3.5 mmoL/L (3.5-5.1); Sodium 136 mmol/L (136-145)
[2019-09-14 06:44] LABS: Anion Gap 5.5 mEq/L (5-15); Blood Urea Nitrogen 10 mg/dl (7-17); Carbon Dioxide 35 mmol/L (22.0-30.0); Creatinine Clearance Estimated 83 mL/min (50-200); Estimated Glomerular Filt Rate 84 ml/min (>60); GFR (African American) 102 ML/MIN (>60)
[2019-09-14 06:45] LABS: Calcium 9.2 mg/dl (8.4-10.2); Glucose 120 mg/dl (74-100); Magnesium 1.9 mg/dl (1.6-2.3)
[2019-09-14 06:54] LABS: Troponin I < 0.01 ng/ml (0.00-0.034)
[2019-09-14 06:59] LABS: T4 (Thyroxine) 8.3 ug/dl (5.53-11.0)
--- NOTE | 2019-09-14 07:11 | HMH.PHAVTE ---
[facility] Pharmacy VTE Monitoring - Patient Demographics Admission date: 09/14/19 Report Date: 09/14/19 Time: 07:11 Allergies/Adverse Reactions: Patient Allergies nickel Allergy (Intermediate, Verified 01/30/19 20:) I-RASH silk Allergy (Mild, Verified 01/30/19 20:) I-RASH cefaclor Allergy (Unknown, Verified 01/30/19 20:31) RASH/DIFF BREATHING ibuprofen Allergy (Unknown, Verified 01/30/19 20:31) NA-NAUSEA/VOMITING levofloxacin [From Levaquin] Allergy (Unknown, Verified 01/30/19 20:) Unknown allergy reaction morphine Allergy (Unknown, Verified 01/30/19 20:) BOTTOMS OUT UP nitrofurantoin [From MACROBID] Allergy (Unknown, Verified 01/30/19) Unknown allergy reaction Sulfa (Sulfonamide Antibiotics) Allergy (Unknown, Verified 01/30/19 20:) Unknown allergy reaction SURGICAL STEEL Allergy (Intermediate, Uncoded 03/01/17 14:04) I-RASH Height: 1.65 m Weight: 93.468 kg Patient Problems: Current Active Problems Type 2 diabetes mellitus (Chronic) Hypothyroidism (Chronic) Obesity (Acute) Chest pain (Acute) - VTE Risk Labs: VTE Related Lab Results Hgb 12.7 g/dL (12.2-16.2) 09/14/19 05:45 Hct 40.5 % (37.0-47.0) 09/14/19 05:45 Plt Count 162 K/mm3 (142-424) 09/14/19 05:45 BUN 10 mg/dl (7-17) 09/14/19 05:45 Creatinine 0.70 mg/dl (0.52-1.04) 09/14/19 05:45 Estimated Creat Clear 83 mL/min (50-200) 09/14/19 05:45 Was VTE Risk Assessment Performed: Yes VTE Score: 8 VTE Risk Level: Moderate Risk - Prophylaxis VTE Prophylaxis Ordered?: Yes Types of VTE Prophylaxis: TEDS Knee High Location of Applied Device: Bilateral Lower Extremeties - VTE Diagnosis Confirmed Treatment or plan recommended: Continue Current Treatment
[2019-09-14 07:12] LABS: Thyroid Stimulating Hormone 2.06 uIU/mL (0.465-4.68)
--- NOTE | 2019-09-14 07:26 | HMH.PHAINT ---
MEDICATION RECONCILIATION COMPLETED ON PATIENT USING EXTERNAL FILL HISTORY FROM PHARMACY. -HUAN JOEL, RAMYAD
--- NOTE | 2019-09-14 08:00 | CA_ITS ---
APPROVED REPORT Bilateral Lower Extremity Venous Study for DVT. Income Tax Investigator: FRANCINE CortezT Indications Lower Extremity Edema: Bilateral Shortness of breath History of Smoking pain/sob Risk Factors Obesity Vein Imaging CFV (R): compressive, spontaneous, phasic, augmentation FEM (R): compressive, spontaneous, phasic, augmentation POP (R): compressive, spontaneous, phasic, augmentation PTV (R): Compressible GSV (R): Compressible Peroneals (R):Compressible GAS (R): Compressible CFV (L): compressive, spontaneous, phasic, augmentation FEM (L): compressive, spontaneous, phasic, augmentation POP (L): compressive, spontaneous, phasic, augmentation PTV (L): Compressible GSV (L): Compressible Peroneals (L):Compressible GAS (L): Compressible Findings Study suggests no evidence of DVT of the bilateral lower extremities. Study suggests no evidence of SVT of the bilateral lower extremities. Conclusion No evidence of DVT or superficial thrombophlebitis in the veins scanned of the right lower extremity. No evidence of DVT or superficial thrombophlebitis in the veins scanned of the left lower extremity. Electronically signed by : Kofi Landis MD 09/14/2019 11:34:37
--- NOTE | 2019-09-14 08:24 | HMH.HP ---
*Admission Date: 09/14/19 *Chief complaint: cough, SOA, chest tightness, vomiting *History of present illness: Ms. Dominguez is a 64-year-old female with a history of asthma, COPD, diabetes, hypertension, hyperlipidemia, chronic back pain, hypothyroidism, GERD, intermittent SVT, and overactive bladder. She states approximately 3 to 4 days ago she began feeling poorly. She became more short of breath and her chest felt tight. She had a cough with white sputum. She also began vomiting and having diarrhea. She presented to the emergency room and a chest x-ray was done. The official x-ray report is still pending but the ER physician felt she had increased vascular congestion. She was admitted and started on Lasix. She complained of some edema in her left leg and a venous Doppler was ordered as well. She states she is had no vomiting since admission. She is complaining of some left lower quadrant abdominal pain today. She is still coughing up sputum and feels short of breath with some chest tightness. Her troponins have all returned normal. [facility] History I have reviewed the patient's past medical history: Yes Medical History: Reports:: Asthma, Congestive Heart Failure, Chronic Obstructive Pulmonary Disease (COPD), Depression, Diabetes Mellitus Type 2, Gastroesophageal Reflux Disease(GERD), Hyperlipidemia, Hypertension Denies:: Cancer, Diabetes Mellitus Type 1, Internal Pacemaker, Lung Disease, MRSA, Seizures *Have you ever received a pneumonia vaccine?: No *Have you received a flu vaccine this season?: No Other Medical History: Reports: Anemia, Arthritis, Cataracts, Hypothyroidism, Other (STROKE) Laterality Cases: Left: Arthroscopy Knee, Right: Breast Biopsy Other Surgeries: Yes: Cardiac Catheterization, Cholecystectomy, Colonoscopy, , Other (GALLBLADDER,CYSTOSCOPY WITH URETERAL DIL.,CYSTO WITH LEFT RETROGRADE PYELOG). No: Pacemaker Amputation: No Fractures: No - *Social History Last grade of school completed: 11th or 12th Smoking Status: Current every day smoker Tobacco Type: cigarettes # Packs/Day (cigarettes): 1 #Yrs smoked (if former smoker): 40 Alcohol Intake: never Substance Use Type: denies use *Occupational Status:: retired Housing: house Household Members: family, friend(s) *Travel in the last 8 weeks: None - Psychiatric History Pschychiatric History:: Reports:: Depression Family Hx:: Cancer, Diabetes, Hypertension Review of Systems - Constitutional Reports chills, Reports weakness, Denies fever(s) - Eyes Denies blurry vision, Denies double vision - ENT Reports sore throat, Denies nasal congestion - *Cardiovascular Reports chest pain, Reports shortness of breath, Reports leg swelling, Denies rapid, pounding, or irregular heartbeat - *Respiratory Reports cough, Reports shortness of breath, Reports wheezing - *Gastrointestinal Reports abdominal pain, Reports loose stools, Reports nausea, Reports vomiting - *Genitourinary Denies difficulty urinating, Denies painful urination - *Musculoskeletal Denies joint pain - *Neurologic Reports headache(s), Reports dizziness, Reports weakness, Denies abnormal hearing, Denies localized weakness, Denies seizure-like activity Meds Home Medications Medication Instructions Recorded Confirmed Type diazepam 10 mg tablet 10 mg PO QIDP PRN tab 05/03/17 09/14/19 History hydrocodone 10 mg-acetaminophen 0.5 - 1 tab PO Q6HP PRN 05/03/17 09/14/19 History 325 mg tablet atenoloL [Atenolol 25mg Tab] 25 mg PO DAILY 10/05/17 09/14/19 History Fluticasone Propionate 1 spray NOSTRIL-B DAILY 01/31/19 09/14/19 History Levothyroxine Sodium 50 mcg PO DAILY 01/31/19 09/14/19 History [Levothyroxine 50mcg (0.05mg) Tab] Metformin HCl 500 mg PO HS 01/31/19 09/14/19 History Rosuvastatin Calcium 20 mg PO HS 01/31/19 09/14/19 History Trazodone HCl 300 mg PO HS 01/31/19 09/14/19 History Omeprazole [Omeprazole 40mg 40 mg PO BID 02/01/19 09/14/19 History Capsule] Sertraline HCl [
[2019-09-14 11:50] LABS: POC Glucose,Bedside 134 (70-110)
[2019-09-14 12:57] LABS: Microscopic, Urine URINE MICROSCOPIC (MICROSCOPIC)
[2019-09-14 13:17] LABS: Appearance,Urine CLEAR (Clear); Bilirubin,Urine Negative (Negative); Blood, Urine Negative (Negative); Color,Urine YELLOW (Yellow); Glucose,Urine (UA) Negative (Negative); Ketones,Urine Negative (Negative); Leukocyte Esterase,Urine 1+ (Negative); Nitrate,Urine Negative (Negative); Protein,Urine Negative (Negative); Specific Gravity, Urine 1.015 (1.005-1.030); Urobilinogen,Urine 0.2 EU/dl (0.2)
[2019-09-14 13:23] LABS: Bacteria,Urine 3+ /lpf
[2019-09-14 17:53] LABS: POC Glucose,Bedside 134 (70-110)
--- NOTE | 2019-09-14 18:30 | PC.NURSE ---
Slept at intervals this shift. Remains on 2 L O2 per nasal cannula. No complaints voiced this shift. Requires assistance x1 to BSC. Report given to Brennon Guthrie RN
--- NOTE | 2019-09-14 19:06 | PC.NURSE ---
report given to saundra
--- NOTE | 2019-09-14 19:45 | PC.NURSE ---
SPOKE WITH SUPERCALENDER OPERATOR RENETTA AT THIS TIME ABOUT PT REQUESTING TO GO OUTSIDE WITH HER SISTER TO SMOKE. DENIED REQUEST. PT IS AWARE AND REQUESTING NICOTINE PATCH.
--- NOTE | 2019-09-14 20:25 | PC.NURSE ---
Pt's room air sat at rest = 88%. RT put O2 back on 2 lpm after neb tx.
[2019-09-14 21:02] LABS: POC Glucose,Bedside 114 (70-110)
--- NOTE | 2019-09-14 23:08 | PC.NURSE ---
Pt's room air sat = 87% at rest. Rt placed pt back on O2 after neb tx.
[2019-09-15] VITALS (15 sets, daily range): BP systolic 102–121; BP diastolic 48–65; PULSE 50–70; RESP 17–18; TEMP 36.6–37; O2SAT 87–96; BMI 34.3; BMI 33.9
--- NOTE | 2019-09-15 02:37 | PC.NURSE ---
Addendum entered by Isabell Guthrie RN 09/15/19 06:08: NO N/V/D THIS SHIFT. Addendum entered by Isabell Guthrie RN 09/15/19 02:45: SINUS TEN AND NSR NOTED ON JORDAN WORKER THIS SHIFT THUS FAR. Original Note: PT IS A&O X4. APPROPRIATE WITH THIS RN, BUT STATED HER FRUSTRATION WITH NOT BEING ABLE TO GO OUTSIDE AND SMOKE AT BEGINNING OF SHIFT. EXPLAINED TO PT THAT GOING OUTSIDE AGAINST MD ORDERS WOULD ENTITLE HER TO LEAVE AMA AND SHE WOULD NO LONGER BE A PATIENT AT THIS TIME. PT VERBALIZES TO THIS RN THAT SHE WILL NOT LEAVE THE UNIT. PERSONAL ITEMS, INCLUDING CIGARETTES WERE LOCKED IN ASSISTANT EXECUTIVE HOUSEKEEPER PTS ROOM AT THIS TIME BY THIS RN. NICOTINE PATCH APPLIED TO LEFT ARM PER PT REQUEST. PT RESTED WELL T/O SHIFT WITH NO C/O. BILATERAL LUNGS NOTED CLEAR WITH DIMINISHED BREATH SOUNDS UPON AUSCULTATION. TOLERATES 2LNC WELL WITH NO C/O SOA. PT NOTED 95% ON 2LNC. WILL ATTEMPT TO WEAN TO RA THIS SHIFT. BLE NON-PITTING +1 EDEMA NOTED UPON INITIAL ASSESSMENT. REFUSED TEDS. VSS. REMAINS SAFE. CALL LIGHT WITHIN REACH. WILL CONTINUE TO MONITOR.
--- NOTE | 2019-09-15 03:27 | PC.NURSE ---
WEANED O2 DOWN TO 1 LNC AT THIS TIME. PT TOLERATING WELL, RESTING IN BED WITH EYES CLOSED. WILL CONTINUE TO REASSESS.
--- NOTE | 2019-09-15 06:17 | PC.NURSE ---
PT'S RA SAT THIS AM NOTED AT 87%. NO RESPIRATORY DISTRESS NOTED AT THIS TIME. PLACED PT BACK ON 1LNC. O2 SAT NOW AT 90%.
[2019-09-15 06:22] LABS: POC Glucose,Bedside 108 (70-110)
--- NOTE | 2019-09-15 06:24 | PC.NURSE ---
PT DEMONSTRATED APPROPRIATE USE OF INCENTIVE SPIROMETER THIS SHIFT. GOAL SET TO 1,200 THIS AM. ENCOURAGED USE OF IS Q1H WHILE AWAKE.
--- NOTE | 2019-09-15 06:34 | PC.NURSE ---
RT INCREASED 02 TO 2LNC THIS AM, O2 SATS NOTED AT 90% ON 1LNC. WILL CONTINUE TO REASSESS.
[2019-09-15 09:03] LABS: Basophils % 0.7 % (0.1-2.0); Eosinophils # 0.1 K/mm3 (0.0-0.4); Eosinophils % 1.7 % (0.1-12.0); Hematocrit 36.1 % (37.0-47.0); Hemoglobin 11.6 g/dL (12.2-16.2); Lymphocytes # 1.7 K/mm3 (0.7-4.5); Lymphocytes % 37.6 % (10-50); Mean Corpuscular HGB Conc 32.1 g/dL (31.8-35.4); Mean Corpuscular Hemoglobin 26.8 pg (27.0-31.2); Mean Corpuscular Volume 83.4 fl (81-99); Mean Platelet Volume 7.9 fl (7.4-10.4); Monocytes # 0.2 K/mm3 (0.1-1.0); Monocytes % 3.3 % (1.7-9.3); Neutrophils # 2.6 K/mm3 (1.8-7.8); Neutrophils % 56.7 % (37.0-80.0); Platelet Count 160 K/mm3 (142-424); Red Blood Count 4.33 M/mm3 (4.20-5.40); White Blood Count 4.6 K/mm3 (4.8-10.8)
[2019-09-15 09:06] LABS: Chloride 101 mmol/L (98-107)
[2019-09-15 09:07] LABS: Potassium 3.4 mmoL/L (3.5-5.1); Sodium 137 mmol/L (136-145)
[2019-09-15 09:10] LABS: Anion Gap 9.4 mEq/L (5-15); Blood Urea Nitrogen 9 mg/dl (7-17); Calcium 8.7 mg/dl (8.4-10.2); Carbon Dioxide 30 mmol/L (22.0-30.0); Creatinine Clearance Estimated 82 mL/min (50-200); Estimated Glomerular Filt Rate 100 ml/min (>60); GFR (African American) 121 ML/MIN (>60); Glucose 164 mg/dl (74-100)
--- NOTE | 2019-09-15 11:25 | HMH.ACPN2 ---
Internal Medicine - PN: Subj *Date: 09/15/19 *Time: 11:25 Interval history: She states that she feels better this morning. She is sitting comfortably watching TV. Her lungs are clear. Her abdomen is soft. Her urine culture gram-negative rods. She has multiple antibiotic allergies. I have ordered Invanz daily. Perhaps if we dose her today and tomorrow she will be able to go home Tuesday without IV antibiotics. Depending, of course, on the culture final report. She reports that she has difficulty urinating. She is not had a pelvic exam in quite a long time. At this point I will order a pelvic ultrasound. Exam Vital signs and Labs for Last 24 Hours: Temp Pulse Resp BP Pulse Ox 98.1 F 64 18 121/62 90 L 09/15/19 10:59 09/15/19 10:59 09/15/19 10:59 09/15/19 10:59 09/15/19 10:59 Laboratory Results - last 24 hr 09/14/19 08:50: Urine Color Yellow, Urine Appearance Clear, Urine pH 6.0, Ur Specific [place] 1.015, Urine Protein Negative, Urine Glucose (UA) Negative, Urine Ketones Negative, Urine Blood Negative, Urine Nitrate Negative, Urine Bilirubin Negative, Urine Urobilinogen 0.2, Ur Leukocyte Esterase 1+ A, Urine RBC 10-20, Urine WBC 3-5, Ur Squamous Epith Cells 3-5, Urine Bacteria 3+ 09/14/19 11:15: POC Glucose 134 H 09/14/19 17:18: POC Glucose 134 H 09/14/19 20:14: POC Glucose 114 H 09/15/19 05:49: POC Glucose 108 09/15/19 08:44: WBC 4.6 L, RBC 4.33, Hgb 11.6 L, Hct 36.1 L, MCV 83.4, MCH 26.8 L, MCHC 32.1, RDW 15.0, Plt Count 160, MPV 7.9, Neut % (Auto) 56.7, Lymph % (Auto) 37.6, [place] % (Auto) 3.3, Eos % (Auto) 1.7, Baso % (Auto) 0.7, Neut # (Auto) 2.6, Lymph # (Auto) 1.7, Sutter # (Auto) 0.2, Eos # (Auto) 0.1, Baso # (Auto) 0.0 09/15/19 08:44: Sodium 137, Potassium 3.4 L, Chloride 101, Carbon Dioxide 30, Anion Gap 9.4, BUN 9, Creatinine 0.60, Estimated Creat Clear 82, Estimated GFR 100, Est GFR ( Amer) 121, Glucose 164 H, Calcium 8.7 I & O for Last 24 hours: Intake & Output 09/12/19 09/13/19 09/14/19 09/15/19 11:59 11:59 11:59 11:59 Intake Total 512 / 512 1820 / 1820 Output Total 300 / 300 900 / 900 Balance 212 / 212 920 / 920 Weight 206 lb 1 oz 203 lb 8 oz Microbiology Reports for the Last 24 Hours: Microbiology 09/14/19 08:50 Urine,Clean Catch Urine Culture - Preliminary Gram Negative Rods - Constitutional no acute distress - *Routine HEENT Exam Eye: Present: PERRL ENT: Present: mucous membranes moist - *Routine Respiratory Exam Present: CTA bilaterally - *Routine Cardiovascular Exam Present: RRR - *Routine Abdominal Exam Present: soft, obese. Absent: tenderness, organomegaly - *Routine Extremities Exam Present: edema (Trace) - *Routine Neurological Exam Present: alert, oriented X3 Assessment and Plan (1) UTI (urinary tract infection), bacterial Current visit: Yes Status: Acute Category: Medical Code(s): N39.0 - Urinary tract infection, site not specified; A49.9 - Bacterial infection, unspecified (2) Gram-negative bacterial infection Current visit: Yes Status: Acute Category: Medical Code(s): A49.9 - Bacterial infection, unspecified (3) Chest pain Current visit: Yes Status: Acute Qualifiers: Chest pain type: unspecified Qualified Code(s): R07.9 - Chest pain, unspecified Category: Medical Code(s): R07.9 - Chest pain, unspecified (4) Acute exacerbation of chronic obstructive airways disease Current visit: No Status: Acute Category: Medical Code(s): J44.1 - Chronic obstructive pulmonary disease with (acute) exacerbation (5) Vomiting and diarrhea Current visit: Yes Status: Acute Category: Medical Code(s): R11.10 - Vomiting, unspecified; R19.7 - Diarrhea, unspecified (6) Abdominal pain Current visit: No Status: Acute Qualifiers: Abdominal location: unspecified location Qualified Code(s): R10.9 - Unspecified abdominal pain Category: Medical Code(s): R10.9 -
[2019-09-15 11:49] LABS: POC Glucose,Bedside 140 (70-110)
--- NOTE | 2019-09-15 11:50 | US_ITS ---
PROCEDURE: US PELVIC CLINICAL INDICATION: dysuria, incomplete voiding COMPARISON: No exams were available for comparison FINDINGS: Study is somewhat limited due to incomplete filling of the urinary bladder. Uterus has an unremarkable appearance at 6 x 2 x 4 cm. No obvious adnexal mass or cul-de-sac fluid. The ovaries are not distinctly well demonstrated. IMPRESSION: Limited exam. No obvious pelvic mass Dictated by: Kofi Landis MD 09/15/2019 19:26 Electronically signed by Kofi Landis MD in [place] 09/15/2019 19:26
--- NOTE | 2019-09-15 11:59 | PC.NURSE ---
Notified radiology of mig33/s of pelvic. Stated that the mig33/[employer] tech will be coming in to work at 1800. Dr Martinez stated he was ok with waiting until then.
[2019-09-15 16:12] LABS: POC Glucose,Bedside 119 (70-110)
[2019-09-15 20:37] LABS: POC Glucose,Bedside 147 (70-110)
[2019-09-16] VITALS (16 sets, daily range): BP systolic 96–117; BP diastolic 54–62; PULSE 50–81; RESP 14–19; TEMP 36.6–36.9; O2SAT 89–95; BMI 34.6
--- NOTE | 2019-09-16 02:56 | PC.NURSE ---
A&OX4. PT HAS TOLERATED 2L OF NC WELL THROUGHOUT SHIFT. EXPIRATORY WHEEZES NOTED THROUGHOUT LUNGS. PT HAS NO COMPLAINTS OF SOB THUS FAR. RESPIRATIONS REGULAR AND UNLABORED. NONPRODUCTIVE, DRY, INTERMITTENT COUGH NOTED. +1 NONPITTING EDEMA NOTED TO BLE. HAND GEOMETRICIAN EQUAL. NSR AND SINUS TEN NOTED ON TELE. NS INFUSING AT 50ML/HR. PT REPORTS NO PAIN THROUGHOUT SHIFT. PT HAS REMAINED AFEBRILE. PT USES THE BATHROOM PER BSC AND TOLERATES WELL. STEADY GAIT WITH STANDBY ASSISTANCE NOTED. RED INDENTION NOTED TO THE LEFT SIDE OF THE PATIENT'S BACK FROM A PREVIOUS INCIDENT WHEN SHE WAS 15. FSBS WITHIN NORMAL LIMITS THUS FAR. PT IS CURRENTLY RESTING IN BED. BED IN LOWEST POSITION. CALL LIGHT WITHIN REACH. VSS. NO CONCERNS AT THIS TIME. WILL CONTINUE TO MONITOR.
[2019-09-16 06:24] LABS: POC Glucose,Bedside 116 (70-110)
[2019-09-16 07:23] LABS: Anion Gap 6.5 mEq/L (5-15); Blood Urea Nitrogen 8 mg/dl (7-17); Calcium 9.2 mg/dl (8.4-10.2); Carbon Dioxide 33 mmol/L (22.0-30.0); Chloride 100 mmol/L (98-107); Creatinine Clearance Estimated 83 mL/min (50-200); Estimated Glomerular Filt Rate 84 ml/min (>60); GFR (African American) 102 ML/MIN (>60); Potassium 4.5 mmoL/L (3.5-5.1); Sodium 135 mmol/L (136-145)
[2019-09-16 07:26] LABS: Basophils % 0.3 % (0.1-2.0); Eosinophils # 0.1 K/mm3 (0.0-0.4); Eosinophils % 1.6 % (0.1-12.0); Glucose 124 mg/dl (74-100); Hematocrit 35.7 % (37.0-47.0); Hemoglobin 11.4 g/dL (12.2-16.2); Lymphocytes # 2.4 K/mm3 (0.7-4.5); Lymphocytes % 53.8 % (10-50); Mean Corpuscular HGB Conc 32.1 g/dL (31.8-35.4); Mean Corpuscular Hemoglobin 27.4 pg (27.0-31.2); Mean Corpuscular Volume 85.3 fl (81-99); Mean Platelet Volume 7.4 fl (7.4-10.4); Monocytes # 0.1 K/mm3 (0.1-1.0); Monocytes % 2.6 % (1.7-9.3); Neutrophils # 1.8 K/mm3 (1.8-7.8); Neutrophils % 41.8 % (37.0-80.0); Platelet Count 155 K/mm3 (142-424); Red Blood Count 4.18 M/mm3 (4.20-5.40); Red Cell Distribution Width 14.8 % (11.5-17.5); White Blood Count 4.4 K/mm3 (4.8-10.8)
[2019-09-16 07:28] LABS: MANUAL DIFFERENTIAL MANUAL DIFFERENTIAL (MANUAL DIFF)
[2019-09-16 07:40] LABS: Eosinophils % 3 % (0-3); Hypochromasia 1+; Lymphocytes % 56 % (10-50); Monocytes % 2 % (2-9); Neutrophils % 39 % (42-76); Platelet Estimate Normal; Poikilocytosis 1+; Total Cells Counted 100
[2019-09-16 10:58] LABS: POC Glucose,Bedside 116 (70-110)
--- NOTE | 2019-09-16 12:48 | HMH.ACPN2 ---
Internal Medicine - PN: Subj *Date: 09/16/19 *Time: 12:48 Interval history: Clinically she is stable but she is upset because she has not received her diazepam nor her hydrocodone. She also wants to go outside to smoke which I have declined to let her do. Exam Vital signs and Labs for Last 24 Hours: Temp Pulse Resp BP Pulse Ox 98.2 F 55 L 19 96/54 L 92 L 09/16/19 08:00 09/16/19 09:58 09/16/19 08:00 09/16/19 08:00 09/16/19 08:00 Laboratory Results - last 24 hr 09/15/19 16:05: POC Glucose 119 H 09/15/19 20:28: POC Glucose 147 H 09/16/19 06:08: POC Glucose 116 H 09/16/19 06:39: WBC 4.4 L, RBC 4.18 L, Hgb 11.4 L, Hct 35.7 L, MCV 85.3, MCH 27.4, MCHC 32.1, RDW 14.8, Plt Count 155, MPV 7.4, Neut % (Auto) 41.8, Lymph % (Auto) 53.8 H, Ada % (Auto) 2.6, Eos % (Auto) 1.6, Baso % (Auto) 0.3, Neut # (Auto) 1.8, Lymph # (Auto) 2.4, Ada # (Auto) 0.1, Eos # (Auto) 0.1, Baso # (Auto) 0.0, Total Counted 100, Neutrophils % (Manual) 39 L, Lymphocytes % (Manual) 56 H, Monocytes % (Manual) 2, Eosinophils % (Manual) 3, Platelet Estimate Normal, Hypochromasia 1+, Poikilocytosis 1+ 09/16/19 06:39: Sodium 135 L, Potassium 4.5 D, Chloride 100, Carbon Dioxide 33 H, Anion Gap 6.5, BUN 8, Creatinine 0.70, Estimated Creat Clear 83, Estimated GFR 84, Est GFR ( Amer) 102, Glucose 124 H D, Calcium 9.2 09/16/19 10:49: POC Glucose 116 H I & O for Last 24 hours: Intake & Output 07/03/20 07/04/20 07/05/20 07/06/20 11:59 11:59 11:59 11:59 Intake Total 512 / 512 1820 / 1820 2066 / 2066 Output Total 300 / 300 900 / 900 1350 / 1350 Balance 212 / 212 920 / 920 716 / 716 Weight 206 lb 1 oz 203 lb 8 oz 207 lb 10.807 oz Microbiology Reports for the Last 24 Hours: Microbiology 09/14/19 08:50 Urine,Clean Catch Urine Culture - Final Citrobacter youngae - Constitutional no acute distress - *Routine Respiratory Exam Present: decreased breath sounds, CTA bilaterally - *Routine Cardiovascular Exam Present: RRR - *Routine Abdominal Exam Present: soft. Absent: tenderness - *Routine Extremities Exam Present: edema (1-2+) - *Routine Neurological Exam Present: alert, oriented X3 Assessment and Plan (1) UTI (urinary tract infection), bacterial Current visit: Yes Status: Acute Category: Medical Code(s): N39.0 - Urinary tract infection, site not specified; A49.9 - Bacterial infection, unspecified (2) Gram-negative bacterial infection Current visit: Yes Status: Acute Category: Medical Code(s): A49.9 - Bacterial infection, unspecified (3) Chest pain Current visit: Yes Status: Acute Qualifiers: Chest pain type: unspecified Qualified Code(s): R07.9 - Chest pain, unspecified Category: Medical Code(s): R07.9 - Chest pain, unspecified (4) Acute exacerbation of chronic obstructive airways disease Current visit: No Status: Acute Category: Medical Code(s): J44.1 - Chronic obstructive pulmonary disease with (acute) exacerbation (5) Vomiting and diarrhea Current visit: Yes Status: Acute Category: Medical Code(s): R11.10 - Vomiting, unspecified; R19.7 - Diarrhea, unspecified (6) Abdominal pain Current visit: No Status: Acute Qualifiers: Abdominal location: unspecified location Qualified Code(s): R10.9 - Unspecified abdominal pain Category: Medical Code(s): R10.9 - Unspecified abdominal pain (7) Hypothyroidism Current visit: Yes Status: Chronic Qualifiers: Hypothyroidism type: acquired Qualified Code(s): E03.9 - Hypothyroidism, unspecified Category: Medical Code(s): E03.9 - Hypothyroidism, unspecified (8) Type 2 diabetes mellitus Current visit: Yes Status: Chronic Qualifiers: Diabetes mellitus terminal press operator insulin use: unspecified terminal press operator insulin use status Diabetes mellitus complication status: with other specified complication Qualified Code(s): E11.69 - Type 2 diabetes mellitus with other spe
[2019-09-16 16:15] LABS: POC Glucose,Bedside 118 (70-110)
--- NOTE | 2019-09-16 17:40 | PC.NURSE ---
Pt alert and oriented and able to make needs known verbally. RR even and unlabored. Has been on 1.5 L 02 most of shift, sats 91-92% on RA. Pt c/o of soa, therefore left [address] at this time. Have encouraged incentive spirometer and pt has been up to chair intermittently. CB in reach. Continues with NS at 50 ML/HR. Refused juancho hose. Faint expiratory rhonchi in JABIER lung. Will cont to mx this shift. VSS
[2019-09-16 20:30] LABS: POC Glucose,Bedside 145 (70-110)
[2019-09-17] VITALS (9 sets, daily range): BP systolic 92–122; BP diastolic 50–77; PULSE 50–94; RESP 14–19; TEMP 36.4–37.2; O2SAT 84–98; BMI 35.4
[2019-09-17 05:47] LABS: POC Glucose,Bedside 108 (70-110)
--- NOTE | 2019-09-17 06:07 | PC.NURSE ---
A&O X4. PT RESTED WELL WITH EYES CLOSED THIS SHIFT WITH NO COMPLAINTS. DENIES PAIN. DENIES SOA. TOLERATED 1LNC WELL THIS SHIFT, O2 SATS MAINTAINED > 92%. RA SAT THIS AM NOTED AT 84%. NO RESPIRATORY DISTRESS NOTED THIS SHIFT. BILATERAL LUNGS NOTED CLEAR T/O UPON AUSCULTATION. INTERMITTENT PRODUCTIVE COUGH NOTED. NON-PITTING +1 EDEMA NOTED TO BLE. REFUSED TEDS. URINE NOTED CLEAR AND BRIGHT YELLOW IN COLOR. VSS. REMAINS SAFE. CALL LIGHT WITHIN REACH. WILL CONTINUE TO MONITOR.
[2019-09-17 06:12] LABS: Chloride 101 mmol/L (98-107); Potassium 4.8 mmoL/L (3.5-5.1); Sodium 136 mmol/L (136-145)
[2019-09-17 06:15] LABS: Blood Urea Nitrogen 12 mg/dl (7-17); Creatinine Clearance Estimated 85 mL/min (50-200); Estimated Glomerular Filt Rate 84 ml/min (>60); GFR (African American) 102 ML/MIN (>60)
[2019-09-17 06:16] LABS: Anion Gap 9.8 mEq/L (5-15); Calcium 9.1 mg/dl (8.4-10.2); Carbon Dioxide 30 mmol/L (22.0-30.0); Glucose 146 mg/dl (74-100)
--- NOTE | 2019-09-17 08:30 | HMH.ACPN2 ---
Internal Medicine - PN: Subj *Date: 09/17/19 *Time: 08:31 Interval history: Patient is sitting up in a chair at bedside eating her breakfast. She states she cannot do without her oxygen. She denies chest pain and cough. She has been eating without difficulty. BMP is normal except for elevated blood sugar at 146. Urine culture reveals Citrobacter youngae which is pansensitive. Patient remains on Invanz. Pelvic ultrasound which revealed no obvious pelvic mass.Venous Doppler study revealed no evidence of DVT Exam Vital signs and Labs for Last 24 Hours: Temp Pulse Resp BP Pulse Ox 98.9 F 60 14 102/50 L 92 L 09/17/19 03:42 09/17/19 05:59 09/17/19 03:42 09/17/19 03:42 09/17/19 05:59 Laboratory Results - last 24 hr 09/16/19 10:49: POC Glucose 116 H 09/16/19 16:05: POC Glucose 118 H 09/16/19 20:01: POC Glucose 145 H 09/17/19 05:26: POC Glucose 108 09/17/19 05:55: Sodium 136, Potassium 4.8, Chloride 101, Carbon Dioxide 30, Anion Gap 9.8, BUN 12 D, Creatinine 0.70, Estimated Creat Clear 85, Estimated GFR 84, Est GFR ( Amer) 102, Glucose 146 H, Calcium 9.1 I & O for Last 24 hours: Intake & Output 09/14/19 09/15/19 09/16/19 09/17/19 11:59 11:59 11:59 11:59 Intake Total 512 / 512 1820 / 1820 2066 / 2066 1768 / 1768 Output Total 300 / 300 900 / 900 1350 / 1350 400 / 400 Balance 212 / 212 920 / 920 716 / 716 1368 / 1368 Weight 206 lb 1 oz 203 lb 8 oz 207 lb 10.807 oz 212 lb 8.41 oz Microbiology Reports for the Last 24 Hours: Microbiology 09/14/19 08:50 Urine,Clean Catch Urine Culture - Final Citrobacter youngae - Constitutional no acute distress Comments: Sitting up in the chair eating her breakfast. Appears comfortable. - *Routine Respiratory Exam Comments: Decreased breath sounds on the left. - *Routine Cardiovascular Exam Present: RRR - *Routine Abdominal Exam Present: soft, normoactive bowel sounds. Absent: tenderness - *Routine Extremities Exam Absent: edema, calf tenderness - *Routine Neurological Exam Present: alert, oriented X3 Assessment and Plan (1) UTI (urinary tract infection), bacterial Current visit: Yes Status: Acute Category: Medical Code(s): N39.0 - Urinary tract infection, site not specified; A49.9 - Bacterial infection, unspecified (2) Gram-negative bacterial infection Current visit: Yes Status: Acute Category: Medical Code(s): A49.9 - Bacterial infection, unspecified (3) Chest pain Current visit: Yes Status: Acute Qualifiers: Chest pain type: unspecified Qualified Code(s): R07.9 - Chest pain, unspecified Category: Medical Code(s): R07.9 - Chest pain, unspecified (4) Acute exacerbation of chronic obstructive airways disease Current visit: No Status: Acute Category: Medical Code(s): J44.1 - Chronic obstructive pulmonary disease with (acute) exacerbation (5) Vomiting and diarrhea Current visit: Yes Status: Acute Category: Medical Code(s): R11.10 - Vomiting, unspecified; R19.7 - Diarrhea, unspecified (6) Abdominal pain Current visit: No Status: Acute Qualifiers: Abdominal location: unspecified location Qualified Code(s): R10.9 - Unspecified abdominal pain Category: Medical Code(s): R10.9 - Unspecified abdominal pain (7) Hypothyroidism Current visit: Yes Status: Chronic Qualifiers: Hypothyroidism type: acquired Qualified Code(s): E03.9 - Hypothyroidism, unspecified Category: Medical Code(s): E03.9 - Hypothyroidism, unspecified (8) Type 2 diabetes mellitus Current visit: Yes Status: Chronic Qualifiers: Diabetes mellitus chcf insulin use: unspecified machine long goods helper insulin use status Diabetes mellitus complication status: with other specified complication Qualified Code(s): E11.69 - Type 2 diabetes mellitus with other specified complication Category: Medical Code(s): E11.9 - Type 2 diabetes mellitus withou
--- NOTE | 2019-09-17 08:38 | XR_ITS ---
PROCEDURE: XR CHEST 2V CLINICAL HISTORY: shortness of breath COMPARISON: CT ANGIO CHEST from 01/30/2019 XR CHEST 2V from 02/14/2019 XR CHEST PORTABLE from 02/16/2019 XR CHEST PORTABLE from 09/13/2019 FINDINGS: The cardiomediastinal silhouette and pulmonary vascularity are within normal limits. Minimal blunting right CP angle suggesting small effusion. No lobar consolidation or collapse. No acute bony abnormalities. IMPRESSION: Small right pleural effusion Dictated by: Kofi Landis MD 09/17/2019 12:43 Electronically signed by Kofi Landis MD in [place] 09/17/2019 12:43
[2019-09-17 11:46] LABS: POC Glucose,Bedside 99 (70-110)
--- NOTE | 2019-09-17 14:19 | PC.NURSE ---
ROOM AIR O2 SAT IS 84%
--- NOTE | 2019-09-17 14:19 | SW/DCPLANNER ---
RECEIVED REFERRAL FOR HOME 02 FOR THIS PATIENT THAT MET CRITERIA FOR HOME 02 WITH A ROOM AIR OF 84%.... PATIENT WISHES TO USE [facility], A PORTABLE WILL BE DELIVERED TO HER ROOM PRIOR TO DISCHARGE...
[2019-09-17 14:36] LABS: Microscopic, Urine URINE MICROSCOPIC (MICROSCOPIC)
[2019-09-17 14:38] LABS: Appearance,Urine CLEAR (Clear); Bilirubin,Urine Negative (Negative); Blood, Urine 1+ (Negative); Color,Urine YELLOW (Yellow); Glucose,Urine (UA) Negative (Negative); Ketones,Urine Negative (Negative); Leukocyte Esterase,Urine 2+ (Negative); Nitrate,Urine Negative (Negative); Protein,Urine Negative (Negative); Urobilinogen,Urine 0.2 EU/dl (0.2)
[2019-09-17 15:20] LABS: Bacteria,Urine 2+ /lpf; WBC,Urine 50-100 #/hpf (0-3)
--- NOTE | 2019-09-17 16:03 | HMH.PHAINT ---
THE PATIENT WAS COUNSELED ON NEW MEDICATION: NICOTINE PATCH AND INCREASE IN FREQUENCY OF POTASSIUM CHLORIDE FROM ONCE DAILY TO TWICE DAILY. THE PATIENT DID NOT HAVE ANY QUESTIONS.
--- NOTE | 2019-09-19 08:28 | HMH.DCSUM ---
General - General Admission date:: 09/14/19 Discharge date: 09/17/19 HPI HPI: Ms. Dominguez is a 64-year-old female with a history of asthma, COPD, diabetes, hypertension, hyperlipidemia, chronic back pain, hypothyroidism, GERD, intermittent SVT, and overactive bladder. She states approximately 3 to 4 days ago she began feeling poorly. She became more short of breath and her chest felt tight. She had a cough with white sputum. She also began vomiting and having diarrhea. She presented to the emergency room and a chest x-ray was done. The official x-ray report is still pending but the ER physician felt she had increased vascular congestion. She was admitted and started on Lasix. She complained of some edema in her left leg and a venous Doppler was ordered as well. She states she had had no vomiting since admission. She is complaining of some left lower quadrant abdominal pain today. She is still coughing up sputum and feels short of breath with some chest tightness. Her troponins have all returned normal. Hospital Course Hospital Course: The patient's initial chest x-ray showed nothing acute. Her venous Doppler showed no evidence of DVT. Her troponins all returned normal. She was admitted and started on Lasix. She has some wheezing and rhonchi as well and did not have any inhalers or nebulizer at home. Duo nebs were added. She had no further vomiting or diarrhea. A UA was ordered along with a culture. By 09/15/2019, she was feeling better and was sitting comfortably watching TV. Her lungs were clear. Her urine was growing gram-negative rods, therefore she was started on Invanz. She did complain of some difficulty urinating and had not had a pelvic exam in quite a while. A pelvic ultrasound was therefore ordered. It showed no obvious pelvic mass. She was upset on 09/16/2019 that she had not received her diazepam or hydrocodone. She also wanted to go outside and smoke, which Dr. Martinez declined to let her do. Her diazepam and hydrocodone were ordered. Her urine culture grew Citrobacter youngae which was sensitive to Invanz. By 09/17/2019, she was sitting up in a chair and felt much better. She was still requiring oxygen. She had a repeat chest x-ray which showed a small right pleural effusion. She had a repeat urinalysis and urine culture which showed no growth. She was stable be discharged home and will follow up with Dr. Khan in the office. Objective Vital signs: Temp Pulse Resp BP Pulse Ox 97.6 F 50 L 16 92/58 L 98 09/17/19 11:45 09/17/19 12:00 09/17/19 11:45 09/17/19 11:45 09/17/19 11:45 Narrative: - Constitutional no acute distress - *Routine HEENT Exam Head: Present: normocephalic Eye: Present: EOMI, PERRL ENT: Present: mucous membranes dry - *Routine Neck Exam Present: supple. Absent: lymphadenopathy - *Routine Respiratory Exam Present: decreased breath sounds, rhonchi (bilaterally), wheezes (faint) - *Routine Cardiovascular Exam Present: RRR - *Routine Abdominal Exam Present: soft, normoactive bowel sounds, tenderness (ttp in the LLQ) - *Routine Extremities Exam Present: edema (bilateral LE edema). Absent: cyanosis, clubbing - *Routine Skin Exam Present: warm. Absent: rash - *Routine Neurological Exam Present: alert, oriented X3 Results Labs on day of discharge: Preliminary micro results at discharge 09/17/19 14:30 Urine Culture - Preliminary Urine,Clean Catch NO GROWTH AFTER 24 HOURS DS: Diagnosis - Discharge Diagnosis (1) UTI (urinary tract infection), bacterial Status: Acute (2) Gram-negative bacterial infection Status: Acute (3) Chest pain Status: Acute (4) Acute exacerbation of chronic obstructive airways disease Status: Acute (5) Vomiting and diarrhea Status: Acute (6) Abdominal pain Status: Acute (7) Hypothyroidism Status: Chronic (8) Type 2 diabetes mellitus Status: Chronic (9) Toba
== END 2019-09-17 16:24 | disposition home or self-care (01) ==
LOC: ER 23:27 → 2ND 09-14 01:53
PROVIDERS: Physician Assistant; Admitting Provider Family Medicine; Emergency Provider Emergency Medicine; PCP Family Medicine; Visit Provider Family Medicine
DX: J44.1 Chronic obstructive pulmonary disease with (acute) exacerbation (principal); N39.0 Urinary tract infection, site not specified; E03.9 Hypothyroidism, unspecified; E11.9 Type 2 diabetes mellitus without complications; Z79.84 Long term (current) use of oral hypoglycemic drugs; Z88.2 Allergy status to sulfonamides; Z88.1 Allergy status to other antibiotic agents; Z88.8 Allergy status to other drugs, medicaments and biological substances; B96.89 Other specified bacterial agents as the cause of diseases classified elsewhere; Z96.1 Presence of intraocular lens; R60.0 Localized edema; I50.9 Heart failure, unspecified; I11.0 Hypertensive heart disease with heart failure; Z79.899 Other long term (current) drug therapy
CPT/HCPCS: 36415; 71045; 71046; 76856; 80048; 80053; 81001; 82962; 83605; 83735; 83880; 84436; 84443; 84484; 85007; 85025; 86328; 87086; 87088; 87186; 93005; 93306; 93970; 94640; 94761; 96374; 99284; G0378; J1335

== ENCOUNTER → 2019-11-23 15:52 | Outpatient (CLI) | payer MEDICARE, SELFPAY ==
--- NOTE | 2019-11-23 15:57 | XR_ITS ---
PROCEDURE: XR FEMUR RT 2V CLINICAL INDICATION: PAIN IN R LEG COMPARISON: No exams were available for comparison FINDINGS: No fracture or dislocation. No lytic or blastic change. There is normal mineralization. There are mild osteoarthritic changes at the knee. The proximal mid aspect of the femur has an unremarkable appearance. Other findings:None. IMPRESSION: Mild osteoarthritis of the knee otherwise negative Dictated by: Kofi Landis MD 11/23/2019 17:24 Kofi Landis MD in [facility] 11/23/2019 17:24
--- NOTE | 2019-11-23 15:58 | XR_ITS ---
PROCEDURE: XR KNEE RT 3V CLINICAL INDICATION: PAIN IN RIGHT LEG COMPARISON: CR KNEE3L KNEE-3 VIEWS-LT from 01/28/2015 CR KNEE3L KNEE-3 VIEWS-LT from 09/07/2016 FINDINGS: No fracture or dislocation. No lytic or blastic change. There is normal mineralization. Osteoarthritic changes are present involving all 3 compartments. Other findings:None. IMPRESSION: Mild osteoarthritis Dictated by: Kofi Landis MD 11/23/2019 17:23 Kofi Landis MD in [facility] 11/23/2019 17:23
== END ==
PROVIDERS: PCP Family Medicine; Visit Provider Family Medicine
DX: M79.604 Pain in right leg (principal)
CPT/HCPCS: 73552; 73562

== ENCOUNTER → 2020-01-28 13:24 | Outpatient (CLI) | payer MEDICARE, SELFPAY ==
--- NOTE | 2020-01-28 13:29 | CT_ITS ---
PROCEDURE: CT FEMUR RT WO CON CLINICAL HISTORY: SOFT TISSUE MASS RIGHT THIGH PAIN, ? SOFT TISSUE MASS LATERAL RIGHT THIGH, MARKED WITH BB XRAYS 11/23/19 COMPARISON: No exams were available for comparison TECHNIQUE: Axial images obtained with sagittal and coronal reformats. All CT scans at the facility use one or more dose reduction, viz: automated exposure control, ma/kV adjustment per patient size (including targeted exams where dose is matched to indication, i.e. head), or iterative reconstruction technique. FINDINGS: A BB is placed to ashley the area of palpable concern along the anterior lateral aspect and mid aspect of the right thigh. There is no soft tissue mass evident at this region. There is only subcutaneous adipose tissue and a stray subcutaneous vein. No abnormal fluid collection is evident. There are mild osteoarthritic changes of the knee and hip. There is a small area of fascial thickening versus unopacified vessels along the distal and lateral aspect of the tenia fascia corey at this region. No bony masses evident. The there is a small knee joint effusion with mild associated osteoarthritic changes of the knee. IMPRESSION: 1. No definite soft tissue mass at the area of palpable concern. There is minimal thickening versus unopacified small vessels at the tenia fascia corey deep to this area which is of questionable significance. No abscess . 2. Mild osteoarthritic changes of the hip and right knee with small knee joint effusion Dictated by: Kofi Landis MD 01/29/2020 14:08 Kofi Landis MD in [facility] 01/29/2020 14:08
== END ==
PROVIDERS: PCP Family Medicine; Visit Provider Family Medicine
DX: M79.89 Other specified soft tissue disorders (principal)
CPT/HCPCS: 73700

== ENCOUNTER → 2020-07-17 16:09 | Outpatient (CLI) | payer MEDICARE, SELFPAY | LOC: LAB 16:10 → LAB.DROPOF 16:13 | PROVIDERS: Visit Provider Urology | DX: R10.9 Unspecified abdominal pain (principal) | CPT/HCPCS: 87086; 87088; 87186 ==

== ENCOUNTER → 2020-08-02 08:36 | Outpatient (CLI) | payer MEDICARE, SELFPAY ==
[2020-08-02 08:40] LABS: MANUAL DIFFERENTIAL MANUAL DIFFERENTIAL (MANUAL DIFF)
[2020-08-02 09:10] LABS: Basophils # 0.1 K/mm3 (0-0.2); Basophils % 0.9 % (0.1-2.0); Eosinophils # 0.1 K/mm3 (0.0-0.4); Eosinophils % 1.6 % (0.1-12.0); Hematocrit 40.5 % (37.0-47.0); Hemoglobin 12.9 g/dL (12.2-16.2); Lymphocytes # 2.9 K/mm3 (0.7-4.5); Lymphocytes % 45.1 % (10-50); Mean Corpuscular HGB Conc 31.8 g/dL (31.8-35.4); Mean Corpuscular Hemoglobin 26.7 pg (27.0-31.2); Mean Platelet Volume 7.8 fl (7.4-10.4); Monocytes # 0.2 K/mm3 (0.1-1.0); Monocytes % 3.6 % (1.7-9.3); Neutrophils # 3.1 K/mm3 (1.8-7.8); Neutrophils % 48.8 % (37.0-80.0); Platelet Count 197 K/mm3 (142-424); Red Blood Count 4.82 M/mm3 (4.20-5.40); Red Cell Distribution Width 15.7 % (11.5-17.5); White Blood Count 6.4 K/mm3 (4.8-10.8)
[2020-08-02 09:59] LABS: Chloride 105 mmol/L (98-107); Potassium 4.3 mmoL/L (3.5-5.1); Sodium 138 mmol/L (136-145)
[2020-08-02 10:02] LABS: Blood Urea Nitrogen 8 mg/dl (7-17); Estimated Glomerular Filt Rate 84 ml/min (>60); GFR (African American) 101 ML/MIN (>60)
[2020-08-02 10:03] LABS: Anion Gap 9.3 mEq/L (5-15); Calcium 9.1 mg/dl (8.4-10.2); Carbon Dioxide 28 mmol/L (22.0-30.0); Glucose 157 mg/dl (74-100)
[2020-08-02 10:09] LABS: Eosinophils % 1 % (0-3); Lymphocytes % 54 % (10-50); Monocytes % 6 % (2-9); Neutrophils % 39 % (42-76); Platelet Estimate Normal; RBC Morphology Normal; Total Cells Counted 100
== END ==
PROVIDERS: Visit Provider Urology
DX: N39.46 Mixed incontinence (principal); N39.0 Urinary tract infection, site not specified; Z01.812 Encounter for preprocedural laboratory examination; Z20.822 Contact with and (suspected) exposure to COVID-19
CPT/HCPCS: 36415; 80048; 85007; 85014; 85018; 85048; 85049; U0003

== ENCOUNTER 2020-08-04 07:11 | Day surgery (SDC) | payer MEDICARE, SELFPAY ==
[2020-07-31 12:19] VITALS: BMI 35.6
[2020-08-04] VITALS (10 sets, daily range): BP systolic 116–144; BP diastolic 67–99; PULSE 70–94; RESP 12–18; TEMP 36.3–36.8; O2SAT 92–96
[2020-08-04 07:45] LABS: POC Glucose,Bedside 118 (70-110)
--- NOTE | 2020-08-04 09:26 | P.PN_ITS ---
[facility] Anesthesia Checklist - Structural Data Admitted From: Home Planned Operative Procedure/s: cysto Consent for Planned Operative Procedure(s) Verified: Yes - Additional verifications Anesthesia Reactions: No Hx Blood Transfusions: No Blood Transfusion Reaction: No - Airway Assessment C-Spine Mobility Assessed: Yes TMJ Mobility Assessed: Yes Dentition: Edentulous - Neurological Assessment Level of Consciousness: Awake, Alert, Appropriate - Anesthesia Plan Anesthesia Risk discussed: Yes Anesthesia Plan: Verified ASA Class: II Anesthesia Type: General [facility] History I have reviewed the patient's past medical history: Yes Medical History: Reports:: Asthma, Congestive Heart Failure, Chronic Obstructive Pulmonary Disease (COPD), Depression, Diabetes Mellitus Type 1, Diabetes Mellitus Type 2, Gastroesophageal Reflux Disease(GERD), Hyperlipidemia, Hypertension Denies:: Cancer, Internal Pacemaker, Lung Disease, MRSA, Seizures *Have you ever received a pneumonia vaccine?: Yes *Have you received a flu vaccine this season?: Yes Other Medical History: Reports: Anemia, Arthritis, Cataracts, Hypothyroidism, Other. Denies: Blood Transfusion Reaction Anesthesia experience/problems:: none Laterality Cases: Left: Arthroscopy Knee, Right: Breast Biopsy Other Surgeries: Yes: No Previous Surgery, Cardiac Catheterization, Chol ecystectomy, Colonoscopy, , Other (GALLBLADDER,CYSTOSCOPY WITH URETERAL DIL.,CYSTO WITH LEFT RETROGRADE PYELOG). No: Pacemaker Amputation: No Fractures: No - *Social History Last grade of school completed: High school graduate Smoking Status: Current every day smoker Tobacco Type: cigarettes # Packs/Day (cigarettes): 1 #Yrs smoked (if former smoker): 40 Alcohol Intake: never Substance Use Type: denies use *Occupational Status:: disabled Housing: house Household Members: family, friend(s) *Travel in the last 8 weeks: None - Psychiatric History Pschychiatric History:: Reports:: Depression Family Hx:: Cancer, Diabetes, Hypertension
--- NOTE | 2020-08-04 10:40 | HMH.ANESI ---
[facility] Anesthesia Record Part I Intake, IV Amount: 500 Estimated blood loss (mL): 0 Urine output (mL): 0 Blood Pressure: 139/89 SaO2: 94 Pulse Rate: 94 Respiratory Rate: 12 Temperature: 97.9 F Patient is:: Awake, Stable Stable to PACU at:: 10:40
[2020-08-04 10:49] LABS: POC Glucose,Bedside 110 (70-110)
--- NOTE | 2020-08-04 10:55 | PC.NURSE ---
1043-LMA removed at this time, pt's O2 sats stable on room air, will continue to monitor
--- NOTE | 2020-08-04 11:06 | PC.NURSE ---
1045-checked fsbs with results of 110, no further orders at this time
--- NOTE | 2020-08-04 11:17 | PC.NURSE ---
1108-detailed report called to DEAN Sifuentes 1110-pt transported to post op via stretcher w/helen rails up and left in care of DEAN Sifuentes with bed locked in lowest position, vss, pt stable
--- NOTE | 2020-08-04 17:10 | HMH.OPNOTE ---
Date of procedure: 08/04/20 Pre-op Diagnosis:: Recurring UTIs, mixed urinary incontinence. Post-op Diagnosis:: Same Procedure performed:: Cystoscopy with urethral dilation Surgeon:: Santos Moser MD [employer] CONSULTANT:: [place] Anesthesia: MAC Estimated blood loss (mL): 0 Clinical Note:: 65-year-old white female with recurring urinary tract infections and mixed incontinence. She was recently treated for urinary tract infection with Cipro and her urge incontinence was treated with Myrbetriq. She states she is doing somewhat better on those medications. She states that her pad usage however is about the same. 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 Operative findings:: Bladder was within normal limits. The bladder neck appears competent. Mild urethral stenosis present Operative note:: Patient taken to the operating room after informed consent was obtained. Was placed on the operating table in the supine position and monitored anesthesia care administered. Preoperative antibiotics were given. She was placed into the dorsal lithotomy position and prepped draped in the standard surgical fashion. Vaginal introitus is a normal external appearance. The urethra in the normal anatomic position without evidence of abnormalities. No cystocele or rectocele was noted. The 22 Maximilian passed into the urethra and into the bladder without difficulty. The bladder was examined in a systematic fashion. There was no evidence of mucosal abnormalities, stones, diverticula or trabeculation. The ureteral orifices in their normal anatomic position. The bladder neck and urethra appeared patent. There was some mild urethral stenosis. The bladder emptied and the scope removed. The urethra was then dilated with a 24, 26, 28 and 30 [place]ian female sounds. Slight amount of bleeding was noted from the urethra afterwards and a gauze pad was placed. Patient tolerated the procedure well there are no complications he was discharged to the recovery in stable condition and will continue current medications. I will see her back in 1 month in follow-up. Condition: stable Disposition: same day Specimens:: None Complications:: None
--- NOTE | 2020-08-05 07:24 | P.PN_ITS ---
[facility] Anesthesia Record Part II Discharge Time: 11:10 Destination: Surgical Day Care (OP Surgery) PACU nurse assessment reviewed?: Yes Patient Condition:: Good Anesthesia Complications:: None Swallowing reflex intact?: Yes Cyanosis?: No Blood Pressure: 132/70 Pulse Rate: 74 Temperature: 97.4 F Mental Status: Alert & Oriented Pain level:: 0 Nausea and/or vomitting:: None Intake, IV Amount: 200
[2020-08-05 07:25] VITALS: BP 132/70; PULSE 74; TEMP 36.3
== END 2020-08-04 11:56 | disposition home health service (06) ==
LOC: OR 07:13
PROVIDERS: PCP Family Medicine; Visit Provider Urology
PROC: 0TJB8ZZ Inspection of Bladder, Via Natural or Artificial Opening Endoscopic (ICD-10-PCS; CPT 52000; principal; 2020-08-04 09:00)
DX: N35.92 Unspecified urethral stricture, female (principal); Z87.440 Personal history of urinary (tract) infections; N39.46 Mixed incontinence; E11.9 Type 2 diabetes mellitus without complications; J44.9 Chronic obstructive pulmonary disease, unspecified; I11.0 Hypertensive heart disease with heart failure; I50.9 Heart failure, unspecified; E10.9 Type 1 diabetes mellitus without complications; F32.9 Major depressive disorder, single episode, unspecified; K21.9 Gastro-esophageal reflux disease without esophagitis; E78.5 Hyperlipidemia, unspecified; M19.90 Unspecified osteoarthritis, unspecified site
CPT/HCPCS: 52281; 82962; 96374

== ENCOUNTER → 2020-10-22 15:07 | Outpatient (CLI) | payer MEDICARE, SELFPAY ==
[2020-10-22 11:37] LABS: Blood Urea Nitrogen 7 mg/dl (7-17); Estimated Glomerular Filt Rate 100 ml/min (>60); GFR (African American) 121 ML/MIN (>60)
== END ==
PROVIDERS: Visit Provider Obstetrics & Gynecology Gynecology
DX: R10.84 Generalized abdominal pain (principal)
CPT/HCPCS: 36415; 82565; 84520

== ENCOUNTER → 2020-10-23 09:42 | Outpatient (CLI) | payer MEDICARE, SELFPAY ==
--- NOTE | 2020-10-23 09:59 | CT_ITS ---
PROCEDURE: CT ABDOMEN PELVIS W CON CLINICAL INDICATION: ABD PAIN Lower abdominal pain COMPARISON: CT ABDPELW CT abdomen pelvis w con from 09/22/2018 TECHNIQUE: IV Contrast: 75ML Isovue 370 Oral Contrast None Axial images obtained with sagittal and coronal reformats. All CT scans at the facility use one or more dose reduction, viz: automated exposure control, ma/kV adjustment per patient size (including targeted exams where dose is matched to indication, i.e. head), or iterative reconstruction technique. FINDINGS: LOWER THORAX: Coronary artery calcification on the right ABDOMEN & PELVIS: There has been a prior cholecystectomy with mild prominence of the biliary tree not significantly changed. No focal liver lesion. Spleen is enlarged at nearly 15 cm. The adrenal glands are unremarkable. Nodular soft tissue density noted along the inferior aspect of the junction of the body and head of the pancreas measuring 11 mm and may be better evaluated with MRI. No renal or ureteral calculi. No hydronephrosis No intestinal obstruction or free air. There is a mild amount of retained colonic feces. There is mild prominence of the tip of the appendix at 7 mm of questionable significance. No stranding of the periappendiceal fat. There are few scattered air-fluid levels within the small bowel in the pelvic region nonspecific. There is stranding of the subcutaneous fat in the pubic region we with abnormal soft tissue density and interspersed gas consistent with an abscess. This area measures 5 cm in AP dimension and 3.3 cm transverse with an irregular contour and extends inferiorly to the upper vaginal region anteriorly. IMPRESSION: 1. Findings are compatible with a subcutaneous abscess in the pubic area involving the mons pubis and extending to the upper vaginal region anteriorly 2. 11 mm indeterminate nodule of the pancreas. Suggest MRI without and with contrast with pancreatic protocol for further evaluation. 3. Nonspecific mild prominence of the tip of the appendix without stranding of the periappendiceal fat 4. Splenomegaly Dictated by: Kofi Landis MD 10/23/2020 17:56 Kofi Landis MD in OV 10/23/2020 17:56
== END ==
PROVIDERS: PCP Family Medicine; Visit Provider Obstetrics & Gynecology Gynecology
DX: R10.30 Lower abdominal pain, unspecified (principal)
CPT/HCPCS: 74177; Q9967

== ENCOUNTER → 2020-12-10 14:56 | Outpatient (CLI) | payer MEDICARE, SELFPAY | PROVIDERS: PCP Family Medicine; Visit Provider Nurse Practitioner | DX: Z20.822 Contact with and (suspected) exposure to COVID-19 (principal); U07.1 COVID-19 | CPT/HCPCS: C9803; U0003; U0005 ==

== ENCOUNTER 2020-12-20 10:00 | Emergency (ER) | payer MEDICARE, SELFPAY ==
[2020-12-20 10:21] VITALS: BP 132/64; PULSE 70; RESP 19; TEMP 37.1; O2SAT 96; BMI 33.5
[2020-12-20 10:29] VITALS: BP 132/64; PULSE 70; RESP 19; TEMP 37.1
--- NOTE | 2020-12-20 10:43 | HMH.EDUTC ---
[facility] [place] Clinical Impression: Asymptomatic COVID-19 virus infection Disposition: Home, Self-Care Condition on Discharge: Good Instructions: Preventing the Spread of Coronavirus Discharge Instructions Additional Instructions: If you've had no symptoms and it has been 10 days since you tested positive, you should consider yourself off quarantine after today, no matter what your test shows today Follow up with your primary care provider. GO TO THE ER FOR ANY WORSENING SYMPTOMS OR CONCERNS. Referrals: Reynold Khan MD [Primary Care Provider] - Time of Disposition: 10:44 Medical Decision Making - Medical Records Medical records reviewed: No: I reviewed the patient's medical records. - Saad Inquiry Pt receiving controlled substance: No Vital Signs: 12/20/20 10:21 12/20/20 10:29 Temperature 98.8 F 98.8 F Temperature Source Oral Pulse Rate 70 Pulse Rate [Left] 70 Respiratory Rate 19 19 Blood Pressure 132/64 Blood Pressure [Right Arm] 132/64 Blood Pressure Mean [Right Arm] 86 02 Sat by Pulse Oximetry 96 [facility] HPI - General Stated complaint: covid test Time Seen by Provider: 12/20/20 10:30 Mode of Arrival: Ambulatory Source of Information: Patient Limitations: No Limitations Description of Symptoms (Recalled from Triage Doc. by RN): PT HAS JUST FINISHED UP QUARENTINE FOR A POSITIVE COVID TEST. PT WANTS RETESTED. HEENT Symptoms (Recalled from RN notes): No Resp Symptoms (Recalled from RN notes): No Skin Symptoms (Recalled from RN notes): No MS Symptoms (Recalled from RN notes): No Functional Status (Recalled from RN notes): NA - History of Present Illness Provider Complaint: She tested positive for covid-19 10 days ago after an exposure. She denies that he has had any symptoms so far. She has been fully vaccinated. - Related Data Home Medications Medication Instructions Recorded Confirmed diazepam 10 mg tablet 10 mg PO QIDP PRN tab 05/03/17 07/17/20 hydrocodone 10 mg-acetaminophen 0.5 - 1 tab PO Q6HP PRN 05/03/17 07/17/20 325 mg tablet atenoloL [Atenolol 25mg Tab] 25 mg PO DAILY 10/05/17 07/17/20 Fluticasone Propionate 1 spray NOSTRIL-B DAILY 01/31/19 07/17/20 Levothyroxine Sodium 50 mcg PO DAILY 01/31/19 07/17/20 [Levothyroxine 50mcg (0.05mg) Tab] Metformin HCl 500 mg PO HS 01/31/19 07/17/20 Rosuvastatin Calcium 20 mg PO HS 01/31/19 07/17/20 Trazodone HCl 300 mg PO HS 01/31/19 07/17/20 Omeprazole [Omeprazole 40mg 40 mg PO BID 02/01/19 07/17/20 Capsule] Furosemide [Furosemide 40MG tAB*] 60 mg PO DAILY 02/15/19 07/17/20 Nicotine [Nicoderm 14mg/24hrs 14 mg TD DAILY 08/04/20 patch] duloxetine 60 mg capsule,delayed 60 mg PO DAILY 09/29/20 release meclizine 12.5 mg tablet 12.5 mg PO BID 09/29/20 trazodone 150 mg tablet 150 mg PO HS PRN 09/29/20 Previous Rx's Medication Instructions Recorded Potassium Chloride [Micro-K 10mEq 10 meq PO BID #60 cer 09/17/19 cap] oxybutynin chloride 10 mg 10 mg PO DAILY #30 tab 09/23/20 tablet,extended release 24 hr nystatin 100,000 unit/gram topical 1 applic TOPICAL BID #60 g 09/29/20 powder Allergies Allergy/AdvReac Type Severity Reaction Status Date / Time nickel Allergy Intermediate I-RASH Verified 09/29/20 14:53 silk Allergy Mild I-RASH Verified 09/29/20 14:53 cefaclor Allergy Unknown RASH/DIFF Verified 09/29/20 14:53 BREATHING ibuprofen Allergy Unknown NA-NAUSEA/V Verified 09/29/20 14:53 OMITING levofloxacin [From Levaquin] Allergy Unknown Unknown Verified 09/29/20 14:53 allergy reaction morphine Allergy Unknown BOTTOMS Verified 09/29/20 14:53 OUT UP nitrofurantoin Allergy Unknown Unknown Verified 09/29/20 14:53 [From MACROBID] allergy reaction Sulfa (Sulfonamide Allergy Unknown Unknown Verified 09/29/20 14:53 Antibiotics) allergy reaction SURGICAL STEEL Allergy Intermediate I-RASH Uncoded 09/29/20 14:53 - Worker's Comp Is this
== END 2020-12-20 10:59 | disposition home or self-care (01) ==
PROVIDERS: Emergency Provider Nurse Practitioner Family; PCP Family Medicine
DX: U07.1 COVID-19 (principal); Z86.16 Personal history of COVID-19
CPT/HCPCS: 99202; C9803; G0463; U0003; U0005

== ENCOUNTER 2021-06-10 19:18 | Observation (INO) | payer MEDICARE, SELFPAY ==
[2021-06-10] VITALS (8 sets, daily range): BP systolic 129–154; BP diastolic 70–81; PULSE 56–63; RESP 16; TEMP 36.7; O2SAT 93–95; BMI 30.6
--- NOTE | 2021-06-10 19:32 | ECG_ITS ---
APPROVED REPORT Exam: Resting ECG HR:60 bpm ECG Measurements Heart Rate 60 AXES OK 176 P 59 QRSd 85 QRS 56 QT 403 T 34 QTc 404 Conclusion SINUS RHYTHM NORMAL ECG UNCONFIRMED REPORT Electronically signed by : Rachid Fields MD 06/11/2021 16:00:47
--- NOTE | 2021-06-10 19:56 | XR_ITS ---
PROCEDURE INFORMATION: Exam: XR Chest Exam date and time: 06/10/2021 8:45 PM Age: 65 years old Clinical indication: Shortness of breath; Additional info: SOA TECHNIQUE: Imaging protocol: XR of the chest. Views: 2 views. COMPARISON: CR XR CHEST 2V 09/17/2019 9:55 AM FINDINGS: Lungs: Unremarkable. No consolidation. Pleural spaces: Unremarkable. No pleural effusion. No pneumothorax. Heart/Mediastinum: Unremarkable. No cardiomegaly. Bones/joints: Unremarkable. IMPRESSION: No acute findings.
[2021-06-10 20:36] LABS: Basophils # 0.1 K/mm3 (0-0.2); Basophils % 1.2 % (0.1-2.0); Eosinophils # 0.1 K/mm3 (0.0-0.4); Hematocrit 36.9 % (37.0-47.0); Hemoglobin 12.1 g/dL (12.2-16.2); Lymphocytes # 3.1 K/mm3 (0.7-4.5); Lymphocytes % 48.8 % (10-50); Mean Corpuscular HGB Conc 32.7 g/dL (31.8-35.4); Mean Corpuscular Hemoglobin 27.1 pg (27.0-31.2); Microscopic, Urine URINE MICROSCOPIC (MICROSCOPIC); Monocytes # 0.2 K/mm3 (0.1-1.0); Neutrophils # 2.9 K/mm3 (1.8-7.8); Platelet Count 202 K/mm3 (142-424); Red Blood Count 4.44 M/mm3 (4.20-5.40); Red Cell Distribution Width 16.1 % (11.5-17.5); White Blood Count 6.3 K/mm3 (4.8-10.8)
[2021-06-10 20:40] LABS: Alanine Aminotransferase 16 U/L (12-78); Albumin Level 4.1 g/dl (3.5-5.0); Albumin/Globulin Ratio 1.3 (1.1-1.8); Alkaline Phosphatase 104 U/L (38-126); Anion Gap 10.2 mEq/L (5-15); Aspartate Amino Transferase 21 U/L (14-36); Bilirubin,Total 0.4 mg/dl (0.2-1.3); Blood Urea Nitrogen 9 mg/dl (7-17); Calcium 9.3 mg/dl (8.4-10.2); Carbon Dioxide 28 mmol/L (22.0-30.0); Chloride 99 mmol/L (98-107); Creatinine Clearance Estimated 69 mL/min (50-200); Estimated Glomerular Filt Rate 100 ml/min (>60); GFR (African American) 121 ML/MIN (>60); Globulin 3.1 g/dL (1.3-3.2); Glucose 116 mg/dl (74-100); Potassium 4.2 mmoL/L (3.5-5.1); Sodium 133 mmol/L (136-145); Total Protein,Serum 7.2 g/dl (6.3-8.2)
[2021-06-10 20:46] LABS: C-Reactive Protein 1.5 mg/L (0-4); Lactic Acid 0.8 mmol/L (0.7-2.1)
[2021-06-10 20:56] LABS: Appearance,Urine CLOUDY (Clear); Bilirubin,Urine Negative (Negative); Blood, Urine TRACE-I (Negative); Color,Urine YELLOW (Yellow); Glucose,Urine (UA) Negative (Negative); Ketones,Urine Negative (Negative); Leukocyte Esterase,Urine 1+ (Negative); Nitrate,Urine POSITIVE (Negative); Protein,Urine 1+ (Negative); Specific Gravity, Urine 1.015 (1.005-1.030); Urobilinogen,Urine 0.2 EU/dl (0.2)
[2021-06-10 20:59] LABS: Procalcitonin 0.036 ng/mL (0.0-2.0)
[2021-06-10 21:07] LABS: Troponin I < 0.01 ng/ml (0.00-0.034)
[2021-06-10 21:18] LABS: Erythrocyte Sedimentation Rate 125 mm/hr (0-30)
[2021-06-10 21:34] LABS: Bacteria,Urine 4+ /lpf; WBC,Urine 50-100 #/hpf (0-3)
--- NOTE | 2021-06-10 22:08 | HMH.EDSOB ---
ED Disposition Clinical Impression: Tobacco abuse, Elevated erythrocyte sedimentation rate UTI (urinary tract infection) Qualifiers: Urinary tract infection type: site unspecified Hematuria presence: without hematuria Qualified Code(s): N39.0 - Urinary tract infection, site not specified Type 2 diabetes mellitus Qualifiers: Diabetes mellitus senior living insulin use: unspecified terminal make up operator insulin use status Diabetes mellitus complication status: with other specified complication Qualified Code(s): E11.69 - Type 2 diabetes mellitus with other specified complication Hypothyroidism Qualifiers: Hypothyroidism type: acquired Qualified Code(s): E03.9 - Hypothyroidism, unspecified COPD (chronic obstructive pulmonary disease) Qualifiers: COPD type: unspecified COPD Qualified Code(s): J44.9 - Chronic obstructive pulmonary disease, unspecified Disposition: Admitted As Inpatient Condition on Discharge: Good - Critical Care Critical Care Time: No Attestation: On 06/10/21, the high probability of a clinically significant, sudden or life threatening deterioration of the following system(s) required my full and direct attention, intervention and personal management. The time I documented below is in addition to time spent performing reported procedures but includes the following listed in this critical care notation. Medical Decision Making - Medical Records Medical records reviewed: Yes: I reviewed the patient's medical records. - Saad Inquiry Pt receiving controlled substance: No Vital Signs: 06/10/21 19:18 Temperature 98.1 F Temperature Source Oral Pulse Rate [Left] 63 Respiratory Rate 16 Blood Pressure [Right Arm] 129/77 Blood Pressure Mean [Right Arm] 94 02 Sat by Pulse Oximetry 95 Oxygen Delivery Method Room Air - Lab Data Lab results reviewed: Yes: I reviewed the patient's lab results. Lab Results 06/10/21 20:10: Urine Color Yellow, Urine Appearance Cloudy, Urine pH 7.0, Ur Specific [place] 1.015, Urine Protein 1+, Urine Glucose (UA) Negative, Urine Ketones Negative, Urine Blood Trace-i, Urine Nitrate Positive, Urine Bilirubin Negative, Urine Urobilinogen 0.2, Ur Leukocyte Esterase 1+ A, Urine RBC 3-5, Urine WBC 50-100, Ur Squamous Epith Cells 3-5, Urine Bacteria 4+ 06/10/21 20:10: WBC 6.3, RBC 4.44, Hgb 12.1 L, Hct 36.9 L, MCV 83.0, MCH 27.1, MCHC 32.7, RDW 16.1, Plt Count 202, MPV 8.0, Neut % (Auto) 46.0, Lymph % (Auto) 48.8, [place] % (Auto) 3.0, Eos % (Auto) 1.0, Baso % (Auto) 1.2, Neut # (Auto) 2.9, Lymph # (Auto) 3.1, [place] # (Auto) 0.2, Eos # (Auto) 0.1, Baso # (Auto) 0.1, ESR 125 H 06/10/21 20:10: Sodium 133 L, Potassium 4.2, Chloride 99, Carbon Dioxide 28, Anion Gap 10.2, BUN 9, Creatinine 0.60, Estimated Creat Clear 69, Estimated GFR 100, Est GFR ( Amer) 121, Glucose 116 H, Calcium 9.3, Total Bilirubin 0.4, AST 21, ALT 16, Alkaline Phosphatase 104, Troponin I < 0.01, C-Reactive Protein 1.5, Total Protein 7.2, Albumin 4.1, Globulin 3.1, Albumin/Globulin Ratio 1.3, Procalcitonin 0.036 06/10/21 20:10: Lactate 0.8 06/10/21 23:00: Troponin I < 0.01 06/11/21 00:47: SARS-CoV-2 (PCR) Not detected, Influenza A Untype (PCR) Not detected, Influenza Type B (PCR) Not detected Result diagrams: 06/10/21 20:10 06/10/21 20:10 Orders (Tests/Meds): ED MEDICATIONS Generic Name Dose Route Start Last Admin Trade Name Freq PRN Reason Stop Dose Admin Sodium Chloride 1,000 mls @ 999 mls/hr 06/10/21 20:00 06/10/21 20:07 Sod Chlor 0.9% 1000ml Bag IV 06/10/21 21:00 999 mls/hr .Q1H1M MYKE Administration Discontinued Medications Generic Name Dose Route Start Last Admin Trade Name Freq PRN Reason Stop Dose Admin Albuterol/Ipratropium 3 ml 06/10/21 19:57 06/10/21 20:21 Ipratropium/Albuterol 3 Ml Neb IH 06/10/21 19:58 3 ml ONCE ONE Administration Iopamidol 70 ml 06/10/21 23:31 06/10/21 23:32 Iopamidol-370 (76%);100ml Bottle IV 06/10/21 23:32 70 ml ONCE ONE Administration Methylpre
--- NOTE | 2021-06-10 22:09 | CT_ITS ---
PROCEDURE INFORMATION: Exam: CTA Chest With Contrast Exam date and time: 06/10/2021 11:17 PM Age: 65 years old Clinical indication: Shortness of breath; Additional info: SOA TECHNIQUE: Imaging protocol: Computed tomographic angiography of the chest with contrast. 3D rendering (Not supervised by radiologist): MIP and/or 3D reconstructed images were created by the technologist. Radiation optimization: All CT scans at this facility use at least one of these dose optimization techniques: automated exposure control; mA and/or kV adjustment per patient size (includes targeted exams where dose is matched to clinical indication); or iterative reconstruction. Contrast material: ISOVUE; Contrast volume: 75 ml; Contrast route: INTRAVENOUS (IV); COMPARISON: CT ANGIO CHEST 01/30/2019 9:20 PM FINDINGS: Pulmonary arteries: Normal. No pulmonary emboli. Aorta: Unremarkable. No aortic aneurysm. No aortic dissection. Lungs: Patchy dependent atelectasis. No consolidation. No masses. Pleural spaces: Unremarkable. No pneumothorax. No pleural effusion. Heart: Unremarkable. No cardiomegaly. No pericardial effusion. Lymph nodes: Unremarkable. No enlarged lymph nodes. Bones/joints: Unremarkable. No acute fracture. Soft tissues: Unremarkable. IMPRESSION: 1. Patchy dependent atelectasis. 2. No CT evidence of pulmonary embolus.
--- NOTE | 2021-06-10 22:09 | CT_ITS ---
PROCEDURE INFORMATION: Exam: CT Abdomen And Pelvis With Contrast Exam date and time: 06/10/2021 11:17 PM Age: 65 years old Clinical indication: Abdominal pain TECHNIQUE: Imaging protocol: Computed tomography of the abdomen and pelvis with contrast. Radiation optimization: All CT scans at this facility use at least one of these dose optimization techniques: automated exposure control; mA and/or kV adjustment per patient size (includes targeted exams where dose is matched to clinical indication); or iterative reconstruction. Contrast material: ISOVUE; Contrast volume: 75 ml; Contrast route: IV; COMPARISON: CT ABDOMEN PELVIS W CON 10/23/2020 10:26 AM FINDINGS: Tubes, catheters and devices: None noted. Lungs: Patchy dependent bibasilar atelectasis. Heart: No significant coronary calcifications. No cardiomegaly. No significant pericardial effusion. Liver: Normal. No mass. Gallbladder and bile ducts: Cholecystectomy. No ductal dilation. Pancreas: Normal. No ductal dilation. Spleen: Normal. No splenomegaly. Adrenal glands: Normal. No mass. Kidneys and ureters: Normal. No hydronephrosis. Stomach and bowel: Unremarkable. No obstruction. No mucosal thickening. Appendix: No evidence of appendicitis. Intraperitoneal space: Unremarkable. No free air. No significant fluid collection. Retroperitoneal space: No significant retroperitoneal inflammatory changes are noted. Vasculature: Unremarkable. No abdominal aortic aneurysm. Lymph nodes: Unremarkable. No enlarged lymph nodes. Urinary bladder: Unremarkable as visualized. Reproductive: Unremarkable as visualized. Bones/joints: Unremarkable. No acute fracture. Soft tissues: Unremarkable. IMPRESSION: 1. Cholecystectomy. 2. Patchy dependent bibasilar atelectasis.
[2021-06-11] VITALS (9 sets, daily range): BP systolic 130–162; BP diastolic 65–92; PULSE 58–80; RESP 16–20; TEMP 36.8–36.9; O2SAT 90–94; BMI 32.5
[2021-06-11 00:05] LABS: Troponin I < 0.01 ng/ml (0.00-0.034)
[2021-06-11 00:52] LABS: Coronavirus 19, PCR Not Detected (NotDetected); Influenza A, PCR Not Detected (NotDetected); Influenza B, PCR Not Detected (NotDetected)
--- NOTE | 2021-06-11 02:25 | PC.NURSE ---
PT ARRIVED TO FLOOR VIA W/C FROM ED W/STAFF @ [id number]
[2021-06-11 06:21] LABS: Basophils % 0.2 % (0.1-2.0); Eosinophils % 0.1 % (0.1-12.0); Hematocrit 35.8 % (37.0-47.0); Hemoglobin 11.9 g/dL (12.2-16.2); Lymphocytes # 1.1 K/mm3 (0.7-4.5); Lymphocytes % 27.1 % (10-50); Mean Corpuscular HGB Conc 33.1 g/dL (31.8-35.4); Mean Corpuscular Hemoglobin 27.4 pg (27.0-31.2); Mean Corpuscular Volume 82.6 fl (81-99); Mean Platelet Volume 8.3 fl (7.4-10.4); Monocytes # 0.1 K/mm3 (0.1-1.0); Monocytes % 1.2 % (1.7-9.3); Neutrophils # 2.8 K/mm3 (1.8-7.8); Neutrophils % 71.5 % (37.0-80.0); Platelet Count 174 K/mm3 (142-424); Red Blood Count 4.34 M/mm3 (4.20-5.40); White Blood Count 3.9 K/mm3 (4.8-10.8)
[2021-06-11 06:40] LABS: Blood Urea Nitrogen 8 mg/dl (7-17); Carbon Dioxide 24 mmol/L (22.0-30.0); Chloride 105 mmol/L (98-107); Creatinine Clearance Estimated 73 mL/min (50-200); Estimated Glomerular Filt Rate 123 ml/min (>60); GFR (African American) 149 ML/MIN (>60); Glucose 198 mg/dl (74-100); Magnesium 1.6 mg/dl (1.6-2.3); Sodium 135 mmol/L (136-145)
--- NOTE | 2021-06-11 06:45 | HMH.PHAVTE ---
[facility] Pharmacy VTE Monitoring - Patient Demographics Admission date: 06/10/21 Report Date: 06/11/21 Time: 06:45 Allergies/Adverse Reactions: Patient Allergies nickel Allergy (Intermediate, Verified 09/29/20 14:53) I-RASH silk Allergy (Mild, Verified 09/29/20 14:53) I-RASH cefaclor Allergy (Unknown, Verified 09/29/20 14:53) RASH/DIFF BREATHING ibuprofen Allergy (Unknown, Verified 09/29/20 14:53) NA-NAUSEA/VOMITING levofloxacin [From Levaquin] Allergy (Unknown, Verified 09/29/20 14:53) Unknown allergy reaction morphine Allergy (Unknown, Verified 09/29/20 14:53) BOTTOMS OUT UP nitrofurantoin [From MACROBID] Allergy (Unknown, Verified 09/29/20 14:53) Unknown allergy reaction Sulfa (Sulfonamide Antibiotics) Allergy (Unknown, Verified 09/29/20 14:53) Unknown allergy reaction SURGICAL STEEL Allergy (Intermediate, Uncoded 09/29/20 14:53) I-RASH Height: 1.6 m Weight: 83.28 kg Patient Problems: Current Active Problems UTI (urinary tract infection) (Acute) Type 2 diabetes mellitus (Chronic) Tobacco abuse (Chronic) Hypothyroidism (Chronic) Elevated erythrocyte sedimentation rate (Acute) COPD (chronic obstructive pulmonary disease) (Acute) - VTE Risk Labs: VTE Related Lab Results Hgb 11.9 g/dL (12.2-16.2) L 06/11/21 05:22 Hct 35.8 % (37.0-47.0) L 06/11/21 05:22 Plt Count 174 K/mm3 (142-424) 06/11/21 05:22 BUN 8 mg/dl (7-17) 06/11/21 05:22 Creatinine 0.50 mg/dl (0.52-1.04) L 06/11/21 05:22 Estimated Creat Clear 73 mL/min (50-200) 06/11/21 05:22 - Prophylaxis VTE Prophylaxis Ordered?: Yes Types of VTE Prophylaxis: TEDS Knee High Location of Applied Device: Bilateral Lower Extremeties
[2021-06-11 07:19] LABS: POC Glucose,Bedside 188 (70-110)
--- NOTE | 2021-06-11 07:40 | HMH.PHAINT ---
Using the patients pharmacy fill history and information provided by the patient, I was able to verify the patient's home medication list.
--- NOTE | 2021-06-11 08:36 | HMH.HPDC ---
<Elisabeth Fiore - Last Filed: 06/11/21 08:36> General - General Admission date:: 06/11/21 Discharge date: 06/11/21 *Admission Date: 06/10/21 *Chief complaint: Shortness of breath *History of present illness: Ms. Dominguez is a 65-year-old female with a history of asthma, COPD, diabetes, hypertension, hyperlipidemia, hypothyroidism, overactive bladder, and intermittent SVT. She states yesterday she was sitting and began feeling short of breath. This lasted approximately 2 hours and went away. She states she was weak and was therefore brought to the hospital. She has also been having some dysuria for the past 2 days and was worried she may have a UTI. She was evaluated in the emergency room and all imaging was relatively unremarkable. Her sed rate was elevated. There was concern for UTI and she was admitted and started on antibiotics. [facility] History I have reviewed the patient's past medical history: Yes Medical History: Reports:: Asthma, Congestive Heart Failure, Chronic Obstructive Pulmonary Disease (COPD), Depression, Diabetes Mellitus Type 2, Gastroesophageal Reflux Disease(GERD), Hyperlipidemia, Hypertension Denies:: Cancer, Internal Pacemaker, Lung Disease, MRSA, Seizures *Have you ever received a pneumonia vaccine?: Yes *Have you received a flu vaccine this season?: Yes Other Medical History: Reports: Anemia, Arthritis, Cataracts, Hypothyroidism, Other. Denies: Blood Transfusion Reaction Laterality Cases: Left: Arthroscopy Knee, Right: Breast Biopsy Other Surgeries: Yes: No Previous Surgery, Cardiac Catheterization, Cholecystectomy, Colonoscopy, , Dilation and Curettage, Tubal Ligation, Other (GALLBLADDER,CYSTOSCOPY WITH URETERAL DIL.,CYSTO WITH LEFT RETROGRADE PYELOG). No: Pacemaker Amputation: No Fractures: No - *Social History Smoking Status: Current every day smoker Tobacco Type: cigarettes # Packs/Day (cigarettes): 1 #Yrs smoked (if former smoker): 40 Alcohol Intake: never Substance Use Type: denies use *Occupational Status:: retired Housing: house Household Members: family, friend(s) *Travel in the last 8 weeks: None - Psychiatric History Pschychiatric History:: Reports:: Depression Family Hx:: Cancer, Diabetes, Heart Attack, Hypertension, Stroke, Hyperlipidemia, Anemia, Asthma, Kidney Disease Review of Systems - Constitutional Denies chills, Denies fever(s) - Eyes Denies blurry vision, Denies double vision - ENT Denies nasal congestion, Denies sore throat - *Cardiovascular Reports shortness of breath, Denies chest pain, Denies leg swelling - *Respiratory Denies cough, Denies shortness of breath - *Gastrointestinal Reports abdominal pain (lower abdomen), Denies loose stools, Denies nausea - *Genitourinary Reports painful urination - *Musculoskeletal Reports muscle weakness, Denies back pain - *Neurologic Reports weakness, Denies headache(s), Denies seizure-like activity, Denies dizziness Exam Vital signs and Labs for Last 24 Hours: Temp Pulse Resp BP Pulse Ox 98.2 F 72 16 153/81 H 93 L 06/11/21 02:45 06/11/21 06:35 06/11/21 02:45 06/11/21 02:45 06/11/21 02:45 Laboratory Results - last 24 hr 06/10/21 20:10: Urine Color Yellow, Urine Appearance Cloudy, Urine pH 7.0, Ur Specific [place] 1.015, Urine Protein 1+, Urine Glucose (UA) Negative, Urine Ketones Negative, Urine Blood Trace-i, Urine Nitrate Positive, Urine Bilirubin Negative, Urine Urobilinogen 0.2, Ur Leukocyte Esterase 1+ A, Urine RBC 3-5, Urine WBC 50-100, Ur Squamous Epith Cells 3-5, Urine Bacteria 4+ 06/10/21 20:10: WBC 6.3, RBC 4.44, Hgb 12.1 L, Hct 36.9 L, MCV 83.0, MCH 27.1, MCHC 32.7, RDW 16.1, Plt Count 202, MPV 8.0, Neut % (Auto) 46.0, Lymph % (Auto) 48.8, [place] % (Auto) 3.0, Eos % (Auto) 1.0, Baso % (Auto) 1.2, Neut # (Auto) 2.9, Lymph # (Auto) 3.1, [place] # (Auto) 0.2, Eos # (Auto) 0.1, Baso # (Auto) 0.1, ESR 125 H 06/10/21 20:10: Sodium 133 L, Potassium 4.2, Chloride 99, Carbon Dioxide 28, Anion Gap 10.2, BUN
--- NOTE | 2021-06-11 09:45 | HMH.PHAINT ---
I spoke with the patient today about her medication list. Went over the new medications that were being sent in for her, and also reviewed with her the medications she was continuing. She did not have any questions or concerns when we spoke. A copy of the list was provided to the patient.
--- NOTE | 2021-06-15 14:09 | CARE MANAGER ---
CM called and spoke with patient r/t post discharge status. Patient states she is feeling much better and was able to roll picker her medication at pharmacy. She states that she has no known needs at this time.
== END 2021-06-11 10:21 | disposition home or self-care (01) ==
LOC: ER 22:08 → 2ND 06-11 01:48
PROVIDERS: Emergency Medicine; Admitting Provider Family Medicine; Emergency Provider Emergency Medicine; PCP Family Medicine; Visit Provider Family Medicine
DX: N39.0 Urinary tract infection, site not specified (principal); E11.9 Type 2 diabetes mellitus without complications; Z79.84 Long term (current) use of oral hypoglycemic drugs; F17.210 Nicotine dependence, cigarettes, uncomplicated; Z79.899 Other long term (current) drug therapy; J44.9 Chronic obstructive pulmonary disease, unspecified; E78.5 Hyperlipidemia, unspecified; I10 Essential (primary) hypertension; E03.9 Hypothyroidism, unspecified; Z20.822 Contact with and (suspected) exposure to COVID-19
CPT/HCPCS: G0378; 36415; 71046; 71275; 74177; 80048; 80053; 81001; 82962; 83605; 83735; 84145; 84484; 85025; 85651; 86140; 87040; 87086; 87088; 87186; 93005; 94640; 96365; 96367; 99285; C9803; J0696; Q9967; U0003; U0005

== ENCOUNTER → 2021-11-02 09:27 | Outpatient (CLI) | payer MEDICARE, SELFPAY ==
--- NOTE | 2021-11-02 09:40 | XR_ITS ---
FINAL REPORT TECHNIQUE: Bone densitometry calculations of the lumbar spine and each hip were obtained. CLINICAL HISTORY: . osteopenia, prior dexa 2018 FINDINGS: DEXA BONE DENSITY AXIAL SKELETON Using L1-4, the bone mineral density of the spine is 0.865 g/cm2, corresponding to T-score of -1.7. Using the left hip, the bone mineral density of the femoral neck is 0.649 g/cm2, corresponding to a T-score of -1.8. Using the right hip, the bone mineral density of the femoral neck is 0.567 g/cm2, corresponding to a T-score of -2.5. NOTE: T-score: Standard deviation compared with peak bone mass of young adult mean. *Following the recommendations of the International Society of Bone densitometry, classification of hip BMD is based on the lower of two T-scores; total hip or femoral neck. IMPRESSION: Osteoporosis: Lowest T-score is at or below -2.5. This patient's T-score meets the World Health Organization criteria for osteoporosis. FRAX not reported because right hip T-score is at -2.5. Reviewed, Interpreted and Dictated by Michael Rudolph MD Transcribed by Julia Cornejo Authenticated and . [facility]
--- NOTE | 2021-11-02 09:41 | MM_ITS ---
PROCEDURE INFORMATION: Exam: MG Bilateral Screening 3D Mammography Exam date and time: 11/02/2021 9:51 AM Age: 66 years old Clinical indication: Screening examination TECHNIQUE: Imaging protocol: Bilateral Screening tomosynthesis and 2D mammography including computer-aided detection (CAD) when performed. COMPARISON: MG SCBI MM Dig screening mamm BI w/CAD 06/30/2018 2:36 PM FINDINGS: MAMMOGRAPHY: Breast composition: There are scattered areas of fibroglandular density. Mass: None. Architectural distortion: None. Calcifications: No suspicious calcifications. Asymmetric density: None. Skin thickening: None. Axillary adenopathy: None. IMPRESSION: No mammographic evidence of malignancy. Annual screening is recommended unless otherwise clinically indicated. ASSESSMENT: BI-RADS Category 1: Negative
--- NOTE | 2021-11-02 09:44 | CT_ITS ---
FINAL REPORT CLINICAL HISTORY: TOBACCO USE DISORDER current smoker 1ppd x45 years FINDINGS: CTDI vol (mGy): 1.[address] images of the chest were obtained using the low-dose protocol for screening. There is no evidence of mediastinal or hilar mass or adenopathy. No axillary mass or adenopathy is identified. On the lung window images, no pulmonary mass or suspicious nodule is identified. There is a calcified granuloma at the right lung base. Vascular calcifications are noted of the abdominal aorta. IMPRESSION: Lung RADS category 1 . Recommend 12 month followup low-dose CT for further evaluation. Reviewed, Interpreted and Dictated by Michael Rudolph MD Transcribed by Irais Mcneill Authenticated and . [facility]
== END ==
PROVIDERS: PCP Family Medicine; Visit Provider Family Medicine
DX: Z12.31 Encounter for screening mammogram for malignant neoplasm of breast (principal); M85.89 Other specified disorders of bone density and structure, multiple sites; Z87.891 Personal history of nicotine dependence; Z12.2 Encounter for screening for malignant neoplasm of respiratory organs
CPT/HCPCS: 71271; 77063; 77067; 77080

== ENCOUNTER 2022-07-15 17:22 | Emergency (ER) | payer MEDICARE, SELFPAY ==
[2022-07-15] VITALS (26 sets, daily range): BP systolic 79–149; BP diastolic 33–53; PULSE 49–92; RESP 16–20; TEMP 36.9; O2SAT 90–100; BMI 29.0; BMI 30.9
--- NOTE | 2022-07-15 17:42 | PC.NURSE ---
Addendum entered by SHAWANDA Hurd 07/15/22 17:44: They also stated if we needed we could use narcan to help bring pt back around if need be, pt is awake but not very vocal at the moment due to circumstances. daughter is now at bs Original Note: spoke to poison control and they said run blood work for CMP, ASPIRIN,BLOOD ALCOHOL LEVEL, PTINR,ACETAMINOPHEN
[2022-07-15 18:01] LABS: Microscopic, Urine URINE MICROSCOPIC (MICROSCOPIC)
[2022-07-15 18:06] LABS: Appearance,Urine CLEAR (Clear); Bilirubin,Urine Negative (Negative); Blood, Urine TRACE-I (Negative); Color,Urine YELLOW (Yellow); Glucose,Urine (UA) Negative (Negative); Ketones,Urine Negative (Negative); Leukocyte Esterase,Urine 2+ (Negative); Nitrate,Urine POSITIVE (Negative); PH,Urine 6.5 (5.0-8.5); Protein,Urine Negative (Negative); Urobilinogen,Urine 0.2 EU/dl (0.2)
--- NOTE | 2022-07-15 18:06 | ECG_ITS ---
APPROVED REPORT Exam: Resting ECG HR:79 bpm ECG Measurements Heart Rate 79 AXES QRSd 96 QRS 65 QT 383 T 71 QTc 418 Conclusion ATRIAL FIBRILLATION NONSPECIFIC ST & T-WAVE ABNORMALITY ABNORMAL RHYTHM ECG INTERPRETATION BASED ON A DEFAULT AGE OF 40 YEARS UNCONFIRMED REPORT Electronically signed by : Rachid Fields MD 07/17/2022 15:57:08
[2022-07-15 18:10] LABS: Ethyl Alcohol < 10 mg/dl (0-10)
[2022-07-15 18:16] LABS: Barbiturates Screen,Urine Negative ng/ml (<200)
[2022-07-15 18:17] LABS: Benzodiazepines Screen,Urine Positive ng/ml (<200)
[2022-07-15 18:18] LABS: Amphetamine/Metha Screen,Urine Negative ng/ml (<1000); Cannabinoid Screen,Urine Negative ng/ml (<50)
[2022-07-15 18:19] LABS: Cocaine Screen,Urine Negative ng/ml (<300); Methadone Screen,Urine Negative ng/ml (<300)
[2022-07-15 18:20] LABS: Opiate Screen,Urine Positive ng/ml (<300)
--- NOTE | 2022-07-15 18:20 | PC.NURSE ---
16:03 Patient noted to have sustained hypotension. MD notified with VO 1L NS and Narcan 2mg IV
[2022-07-15 18:21] LABS: Phencyclidine Screen,Urine Negative ng/ml (<25)
[2022-07-15 18:23] LABS: Basophils % 0.5 % (0.1-2.0); Eosinophils # 0.1 K/mm3 (0.0-0.4); Eosinophils % 1.2 % (0.1-12.0); Hematocrit 36.8 % (37.0-47.0); Hemoglobin 11.8 g/dL (12.2-16.2); Lymphocytes % 47.2 % (10-50); Mean Corpuscular HGB Conc 32.1 g/dL (31.8-35.4); Mean Corpuscular Hemoglobin 26.8 pg (27.0-31.2); Mean Corpuscular Volume 83.5 fl (81-99); Mean Platelet Volume 7.1 fl (7.4-10.4); Monocytes # 0.3 K/mm3 (0.1-1.0); Monocytes % 3.5 % (1.7-9.3); Neutrophils % 47.7 % (37.0-80.0); Platelet Count 207 K/mm3 (142-424); Red Blood Count 4.41 M/mm3 (4.20-5.40); Red Cell Distribution Width 16.3 % (11.5-17.5); White Blood Count 8.5 K/mm3 (4.8-10.8)
[2022-07-15 18:26] LABS: INR 0.97 (0.9-1.1); Prothrombin Time 10.5 seconds (10.1-12.5)
--- NOTE | 2022-07-15 18:27 | HMH.EDGENADL ---
Discharge Plan Disposition Patient Disposition: Still a Patient Prescriptions Prescriptions: No Action diazepam 10 mg tablet 10 mg PO TIDP PRN (Reason: Anxiety) atenolol 25 MG tablet 25 mg PO DAILY oxybutynin chloride 10 mg tablet extended release 24hr 10 mg PO DAILY Qty: 30 6RF furosemide 40 MG tablet 60 mg PO DAILY Label Comments: TAKE 1 & ONE-HALF TABLET BY MOUTH EVERY DAY potassium chloride 10 MEQ capsule, extended release 10 meq PO BID Qty: 60 3RF metformin 500 MG tablet 500 mg PO HS Label Comments: TAKE ONE TABLET BY MOUTH EVERY DAY AT BEDTIME levothyroxine 50 MCG tablet 50 mcg PO DAILY Label Comments: TAKE ONE TABLET BY MOUTH EVERY DAY trazodone 150 MG tablet 300 mg PO HS Label Comments: TAKE TWO TABLETS BY MOUTH EVERY DAY AT BEDTIME MAY CAUSE DROWSINESS fluticasone propionate 16 GM spray,suspension 1 spray NOSTRIL-B DAILY Label Comments: INSTILL 1 SPRAY IN EACH NOSTRIL EVERY DAY rosuvastatin 20 MG tablet 20 mg PO HS Label Comments: TAKE 1 TABLET BY MOUTH EVERY DAY AT BEDTIME omeprazole 40 MG capsule,delayed release(DR/EC) 40 mg PO BID polyethylene glycol 3350 238 GM powder 17 gm PO DAILY Rx Instructions: Dissolve in 4 to 8 ounces of liquid and drink daily sertraline 50 MG tablet 50 mg PO DAILY cholecalciferol (vitamin D3) 1,250 MCG capsule 1 cap PO WEEKLY cefuroxime axetil 500 MG tablet 500 mg PO BID Qty: 20 0RF albuterol sulfate 8.5 GM HFA aerosol inhaler 1 - 2 puffs IH Q6HP PRN (Reason: Shortness Of Breath) Qty: 1 0RF Referrals Follow up/Referrals: Reynold Khan MD [Primary Care Provider] - See instructions Clinical Impressions Clinical Impression: Opioid overdose Discharge ED Provider: Faizan Davis General Adult HPI General Chief complaint: Overdose Stated complaint: poss OD Time Seen by Provider: 07/15/22 17:25 Mode of Arrival: Wheelchair Source of Information: Relative Limitations: No Limitations Description of Symptoms (Recalled from ER Triage Doc. by RN): pt to ed c/o overdose. pt states she took 60 325mg hydrocodone at approx in attempt to harm herself. the pt states im depressed. pt will not give any additional information. History of Present Illness HPI narrative: 67-year-old female presents with overdose. She says that she took 6325 mg hydro Cotolone at approximately 430 PM. This was a suicide attempt. She says that she is depressed. Otherwise she is a poor historian. Her [id number] says that they walked into the room and the pills were missing from the bottle. Related Data Home Medications Medication Instructions Recorded Confirmed diazepam 10 mg tablet 10 mg PO TIDP PRN Anxiety 05/03/17 06/11/21 atenolol 25 mg tablet 25 mg PO DAILY Hypertension 10/05/17 06/11/21 fluticasone propionate 50 1 spray NOSTRIL-B DAILY Allergy 01/31/19 06/11/21 mcg/actuation nasal symptoms spray,suspension levothyroxine 50 mcg tablet 50 mcg PO DAILY Hypothyroidism 01/31/19 06/11/21 metformin 500 mg tablet 500 mg PO HS Diabetes 01/31/19 06/11/21 rosuvastatin 20 mg tablet 20 mg PO HS Cholesterol 01/31/19 06/11/21 trazodone 150 mg tablet 300 mg PO HS sleep 01/31/19 06/11/21 omeprazole 40 mg capsule,delayed 40 mg PO BID GERD 02/01/19 06/11/21 release furosemide 40 mg tablet 60 mg PO DAILY Fluid 02/15/19 06/11/21 cholecalciferol (vitamin D3) 1,250 1 cap PO WEEKLY Supplement 06/11/21 06/11/21 mcg (50,000 unit) capsule polyethylene glycol 3350 17 17 gm PO DAILY Constipation 06/11/21 06/11/21 gram/dose oral powder sertraline 50 mg tablet 50 mg PO DAILY Depression 06/11/21 06/11/21 Previous Rx's Medication Instructions Recorded potassium chloride 10 mEq 10 meq PO BID Supplement ##60 09/17/19 capsule,extended release oxybutynin chloride 10 mg 10 mg PO DAILY #30 tabs 04/23/21 tablet,extended release 24 hr albuterol sulfate 90
[2022-07-15 18:41] LABS: WBC,Urine 20-50 #/hpf (0-3)
[2022-07-15 18:42] LABS: Bacteria,Urine 4+ /lpf; RBC,Urine Occasional #/hpf (0-3); Squamous Epithelial Cell,Urine Occasional #/hpf (0-5)
--- NOTE | 2022-07-15 18:42 | PC.NURSE ---
placed call to [facility] for icu
[2022-07-15 18:43] LABS: Chloride 92 mmol/L (98-107); Sodium 131 mmol/L (136-145)
[2022-07-15 18:46] LABS: Alanine Aminotransferase 35 U/L (12-78); Albumin Level 4.2 g/dl (3.5-5.0); Albumin/Globulin Ratio 1.2 (1.1-1.8); Alkaline Phosphatase 116 U/L (38-126); Aspartate Amino Transferase 37 U/L (14-36); Bilirubin,Total 0.3 mg/dl (0.2-1.3); Blood Urea Nitrogen 16 mg/dl (7-17); Calcium 9.2 mg/dl (8.4-10.2); Carbon Dioxide 25 mmol/L (22.0-30.0); Creatinine Clearance Estimated 69 mL/min (50-200); Estimated Glomerular Filt Rate 71 ml/min (>60); GFR (African American) 86 ML/MIN (>60); Globulin 3.4 g/dL (1.3-3.2); Glucose 130 mg/dl (74-100); Total Protein,Serum 7.6 g/dl (6.3-8.2)
[2022-07-15 18:47] LABS: Salicylate < 1.0 mg/dL (2.0-20.0)
[2022-07-15 18:48] LABS: Acetaminophen 92 ug/ml (10-30)
--- NOTE | 2022-07-15 18:53 | PC.NURSE ---
speaking with academic services coordinator for [facility].
--- NOTE | 2022-07-15 18:54 | PC.NURSE ---
Dr Chawla at [facility] spoke with DUSTIN CURRAN who states to reckech acetaminophen at pm and call back.
--- NOTE | 2022-07-15 19:49 | PC.NURSE ---
Spoke with Alisia at poison control. Alisia requested to know when patient had taken the medication. Per patients daughter the patient likely took the medication at 1630. Alisia also asked if the patient had been given activated charcoal which she had not. Patient is currently resting in her bed with her daughter and a SRNA at the bedside (providing 1 on 1 care).
[2022-07-15 20:47] LABS: Acetaminophen 92 ug/ml (10-30)
--- NOTE | 2022-07-15 20:47 | PC.NURSE ---
Ene from the lab called with a critical Acetaminophen result of 92. ED doctor notified of the result at this time.
--- NOTE | 2022-07-15 22:54 | PC.NURSE ---
poison control called for a pt's updated
[2022-07-16] VITALS (7 sets, daily range): BP systolic 80–110; BP diastolic 36–52; PULSE 48–59; RESP 17; O2SAT 98–100
== END 2022-07-16 02:32 | disposition short-term general hospital (02) ==
PROVIDERS: Emergency Medicine; Emergency Provider Emergency Medicine; PCP Family Medicine
DX: T40.2X1A Poisoning by other opioids, accidental (unintentional), initial encounter (principal); F32.A Depression, unspecified
CPT/HCPCS: 51702; 80053; 80305; 80329; 81001; 85025; 85610; 87086; 87088; 87186; 93005; 96374; 99285; J2310

== ENCOUNTER 2022-07-24 17:15 | Emergency (ER) | payer MEDICARE, SELFPAY ==
[2022-07-24] VITALS (7 sets, daily range): BP systolic 132–148; BP diastolic 67–75; PULSE 48–65; RESP 16–25; TEMP 36.7; O2SAT 95–97; BMI 33.3
--- NOTE | 2022-07-24 16:48 | ECG_ITS ---
APPROVED REPORT Exam: Resting ECG HR:65 bpm ECG Measurements Heart Rate 65 AXES MT 172 P 69 QRSd 98 QRS 77 QT 389 T 65 QTc 400 Conclusion SINUS RHYTHM NONSPECIFIC T-WAVE ABNORMALITY BORDERLINE ECG UNCONFIRMED REPORT Electronically signed by : Rachid Fields MD 07/27/2022 20:11:15
--- NOTE | 2022-07-24 17:19 | XR_ITS ---
PROCEDURE INFORMATION: Exam: XR Chest Exam date and time: 07/24/2022 5:45 PM Age: 67 years old Clinical indication: Pain; Chest pressure; Additional info: Cp TECHNIQUE: Imaging protocol: Radiologic exam of the chest. Views: 1 view. COMPARISON: CT LUNG SCREENING 11/02/2021 10:28 AM FINDINGS: Lungs: Unremarkable. No consolidation. Pleural spaces: Unremarkable. No pleural effusion. No pneumothorax. Heart/Mediastinum: Unremarkable. No cardiomegaly. Bones/joints: Unremarkable. IMPRESSION: No acute findings.
[2022-07-24 17:36] LABS: Basophils % 0.3 % (0.1-2.0); Eosinophils % 0.3 % (0.1-12.0); Hematocrit 36.2 % (37.0-47.0); Lymphocytes # 2.5 K/mm3 (0.7-4.5); Lymphocytes % 35.5 % (10-50); Mean Corpuscular HGB Conc 33.2 g/dL (31.8-35.4); Mean Corpuscular Volume 81.5 fl (81-99); Mean Platelet Volume 7.7 fl (7.4-10.4); Monocytes # 0.3 K/mm3 (0.1-1.0); Neutrophils # 4.2 K/mm3 (1.8-7.8); Platelet Count 314 K/mm3 (142-424); Red Blood Count 4.44 M/mm3 (4.20-5.40); Red Cell Distribution Width 17.2 % (11.5-17.5)
--- NOTE | 2022-07-24 17:44 | PC.NURSE ---
SHAWANDA Falcon rounded on patient, pt reports no needs at this time. call saravia within reach
[2022-07-24 17:48] LABS: Alanine Aminotransferase 55 U/L (12-78); Albumin Level 4.1 g/dl (3.5-5.0); Albumin/Globulin Ratio 1.2 (1.1-1.8); Alkaline Phosphatase 107 U/L (38-126); Anion Gap 17.7 mEq/L (5-15); Aspartate Amino Transferase 35 U/L (14-36); Bilirubin,Total 0.3 mg/dl (0.2-1.3); Blood Urea Nitrogen 9 mg/dl (7-17); Calcium 9.3 mg/dl (8.4-10.2); Carbon Dioxide 20 mmol/L (22.0-30.0); Chloride 99 mmol/L (98-107); Creatinine Clearance Estimated 77 mL/min (50-200); Estimated Glomerular Filt Rate 83 ml/min (>60); GFR (African American) 101 ML/MIN (>60); Globulin 3.4 g/dL (1.3-3.2); Glucose 183 mg/dl (74-100); Potassium 3.7 mmoL/L (3.5-5.1); Sodium 133 mmol/L (136-145); Total Protein,Serum 7.5 g/dl (6.3-8.2)
[2022-07-24 17:52] LABS: D-Dimer 1.19 ug/mL (0.0-0.5)
--- NOTE | 2022-07-24 17:58 | CT_ITS ---
PROCEDURE INFORMATION: Exam: CTA Chest With Contrast Exam date and time: 07/24/2022 7:04 PM Age: 67 years old Clinical indication: Shortness of breath; Additional info: Pe eval TECHNIQUE: Imaging protocol: Computed tomographic angiography of the chest with contrast. 3D rendering (Not supervised by radiologist): MIP and/or 3D reconstructed images were created by the technologist. Radiation optimization: All CT scans at this facility use at least one of these dose optimization techniques: automated exposure control; mA and/or kV adjustment per patient size (includes targeted exams where dose is matched to clinical indication); or iterative reconstruction. Contrast material: ISOVUE; Contrast volume: 70 ml; Contrast route: INTRAVENOUS (IV); REPORTING DATA: Count of CT and Cardiac NM exams in prior 12 months: This patient has received [address] and 0 known cardiac nuclear medicine studies in the 12 months prior to the current study. COMPARISON: CT ANGIO CHEST PE PROTOCOL 06/10/2021 11:17 PM FINDINGS: Pulmonary arteries: Normal. No pulmonary emboli. Aorta: Mild atherosclerotic calcification noted in the aortic arch. No evidence of aortic aneurysm or dissection. Lungs: There has been interval development of a 10 mm microlobulated nodule in the left lung apex. No other significant pulmonary abnormality. Pleural spaces: Unremarkable. No pneumothorax. No pleural effusion. Heart: Unremarkable. No cardiomegaly. No pericardial effusion. Coronary arteries: Coronary artery calcification is noted. Lymph nodes: Unremarkable. No enlarged lymph nodes. Bones/joints: Moderate degenerative changes noted throughout the thoracic spine. Bones are otherwise unremarkable. Soft tissues: Unremarkable. IMPRESSION: 1. No evidence of pulmonary embolus 2. Interval development of 10 mm microlobulated nodule in the left lung apex. Highly suspicious nodule. Consider non-emergent PET/CT, or tissue sampling.(Reference: Gildardo) References: Gildardo Alvarez et al. Guidelines for Management of Incidental Pulmonary Nodules Detected on CT Images: From the Fleischner Society 2017. Radiology. 2017;284(1):228-243.
[2022-07-24 18:01] LABS: NT Pro Brain Natriuretic Pep. 482 pg/mL (0-125); Troponin I < 0.01 ng/ml (0.00-0.034)
--- NOTE | 2022-07-24 18:42 | PC.NURSE ---
PTs son name is Agatha Chan; phone number is [phone] for when she is ready for lease picker
--- NOTE | 2022-07-24 19:57 | PC.NURSE ---
second trop drawn and sent to lab. Pt provided with pillow and water. No other needs voiced. Call light within reach.
[2022-07-24 20:28] LABS: Troponin I < 0.01 ng/ml (0.00-0.034)
--- NOTE | 2022-07-24 20:39 | PC.NURSE ---
notified pt's son that pt is ready for transport
--- NOTE | 2022-07-24 20:56 | HMH.EDGENADL ---
Discharge Plan Disposition Patient Disposition: Home, Self-Care Condition: Good Prescriptions Prescriptions: No Action diazepam 10 mg tablet 10 mg PO TIDP PRN (Reason: Anxiety) atenolol 25 MG tablet 25 mg PO DAILY oxybutynin chloride 10 mg tablet extended release 24hr 10 mg PO DAILY Qty: 30 6RF furosemide 40 MG tablet 60 mg PO DAILY Label Comments: TAKE 1 & ONE-HALF TABLET BY MOUTH EVERY DAY potassium chloride 10 MEQ capsule, extended release 10 meq PO BID Qty: 60 3RF metformin 500 MG tablet 500 mg PO HS Label Comments: TAKE ONE TABLET BY MOUTH EVERY DAY AT BEDTIME levothyroxine 50 MCG tablet 50 mcg PO DAILY Label Comments: TAKE ONE TABLET BY MOUTH EVERY DAY trazodone 150 MG tablet 300 mg PO HS Label Comments: TAKE TWO TABLETS BY MOUTH EVERY DAY AT BEDTIME MAY CAUSE DROWSINESS fluticasone propionate 16 GM spray,suspension 1 spray NOSTRIL-B DAILY Label Comments: INSTILL 1 SPRAY IN EACH NOSTRIL EVERY DAY rosuvastatin 20 MG tablet 20 mg PO HS Label Comments: TAKE 1 TABLET BY MOUTH EVERY DAY AT BEDTIME omeprazole 40 MG capsule,delayed release(DR/EC) 40 mg PO BID polyethylene glycol 3350 238 GM powder 17 gm PO DAILY Rx Instructions: Dissolve in 4 to 8 ounces of liquid and drink daily sertraline 50 MG tablet 50 mg PO DAILY cholecalciferol (vitamin D3) 1,250 MCG capsule 1 cap PO WEEKLY cefuroxime axetil 500 MG tablet 500 mg PO BID Qty: 20 0RF albuterol sulfate 8.5 GM HFA aerosol inhaler 1 - 2 puffs IH Q6HP PRN (Reason: Shortness Of Breath) Qty: 1 0RF Referrals Follow up/Referrals: Reynold Khan MD [Primary Care Provider] - See instructions Activity Restrictions/Add. Instructions Additional Instructions/Restrictions: Please discuss your lung CT findings with your primary care doctor as they are concerning for cancer. Clinical Impressions Clinical Impression: Chest pain Discharge ED Provider: Ulices Small Adult [facility] General Chief complaint: Chest Pain Stated complaint: CP Time Seen by Provider: 07/24/22 17:18 Mode of Arrival: Wheelchair Source of Information: Patient and Relative Limitations: No Limitations Description of Symptoms (Recalled from ER Triage Doc. by RN): 67 F comes in with c/o chest pain. symptoms began today with pain in left chest radiating into left arm. History of Present Illness HPI narrative: This is a very pleasant 67-year-old lady who states she is having chest pain. Unable to further describe it. Also complains of not being able to sleep. Of note, patient recently quit taking benzodiazepines. She denies any fevers chills cough numbness weakness paresthesias. Related Data Home Medications Medication Instructions Recorded Confirmed diazepam 10 mg tablet 10 mg PO TIDP PRN Anxiety 05/03/17 06/11/21 atenolol 25 mg tablet 25 mg PO DAILY Hypertension 10/05/17 06/11/21 fluticasone propionate 50 1 spray NOSTRIL-B DAILY Allergy 01/31/19 06/11/21 mcg/actuation nasal symptoms spray,suspension levothyroxine 50 mcg tablet 50 mcg PO DAILY Hypothyroidism 01/31/19 06/11/21 metformin 500 mg tablet 500 mg PO HS Diabetes 01/31/19 06/11/21 rosuvastatin 20 mg tablet 20 mg PO HS Cholesterol 01/31/19 06/11/21 trazodone 150 mg tablet 300 mg PO HS sleep 01/31/19 06/11/21 omeprazole 40 mg capsule,delayed 40 mg PO BID GERD 02/01/19 06/11/21 release furosemide 40 mg tablet 60 mg PO DAILY Fluid 02/15/19 06/11/21 cholecalciferol (vitamin D3) 1,250 1 cap PO WEEKLY Supplement 06/11/21 06/11/21 mcg (50,000 unit) capsule polyethylene glycol 3350 17 17 gm PO DAILY Constipation 06/11/21 06/11/21 gram/dose oral powder sertraline 50 mg tablet 50 mg PO DAILY Depression 06/11/21 06/11/21 Previous Rx's Medication Instructions Recorded potassium chloride 10 mEq 10 meq PO BID Supplement ##60 09/17/19 capsule,extended release oxybutyni
== END 2022-07-24 21:04 | disposition home or self-care (01) ==
PROVIDERS: Emergency Provider Emergency Medicine; PCP Family Medicine
DX: R07.9 Chest pain, unspecified (principal); M79.602 Pain in left arm
CPT/HCPCS: 71045; 71275; 80053; 83880; 84484; 85025; 85378; 93005; 99285; Q9967

== ENCOUNTER 2022-09-12 11:52 | Emergency (ER) | payer MEDICARE, SELFPAY ==
[2022-09-12 11:52] VITALS: BP 124/79; PULSE 120; RESP 24; TEMP 36.6; O2SAT 99; BMI 25.9
[2022-09-12 12:00] VITALS: BP 131/82; PULSE 109; O2SAT 97
--- NOTE | 2022-09-12 12:00 | HMH.EDANX ---
Discharge Plan Disposition Patient Disposition: Home, Self-Care Condition: Good Chief Complaint: Shortness of Breath/Dyspnea Prescriptions Prescriptions: No Action diazepam 10 mg tablet 10 mg PO TIDP PRN (Reason: Anxiety) atenolol 25 MG tablet 25 mg PO DAILY oxybutynin chloride 10 mg tablet extended release 24hr 10 mg PO DAILY Qty: 30 6RF furosemide 40 MG tablet 60 mg PO DAILY Patient Comments: TAKE 1 & ONE-HALF TABLET BY MOUTH EVERY DAY potassium chloride 10 MEQ capsule, extended release 10 meq PO BID Qty: 60 3RF metformin 500 MG tablet 500 mg PO HS Patient Comments: TAKE ONE TABLET BY MOUTH EVERY DAY AT BEDTIME levothyroxine 50 MCG tablet 50 mcg PO DAILY Patient Comments: TAKE ONE TABLET BY MOUTH EVERY DAY trazodone 150 MG tablet 300 mg PO HS Patient Comments: TAKE TWO TABLETS BY MOUTH EVERY DAY AT BEDTIME MAY CAUSE DROWSINESS fluticasone propionate 16 GM spray,suspension 1 spray NOSTRIL-B DAILY Patient Comments: INSTILL 1 SPRAY IN EACH NOSTRIL EVERY DAY rosuvastatin 20 MG tablet 20 mg PO HS Patient Comments: TAKE 1 TABLET BY MOUTH EVERY DAY AT BEDTIME omeprazole 40 MG capsule,delayed release(DR/EC) 40 mg PO BID polyethylene glycol 3350 238 GM powder 17 gm PO DAILY Rx Instructions: Dissolve in 4 to 8 ounces of liquid and drink daily sertraline 50 MG tablet 50 mg PO DAILY cholecalciferol (vitamin D3) 1,250 MCG capsule 1 cap PO WEEKLY cefuroxime axetil 500 MG tablet 500 mg PO BID Qty: 20 0RF albuterol sulfate 8.5 GM HFA aerosol inhaler 1 - 2 puffs IH Q6HP PRN (Reason: Shortness Of Breath) Qty: 1 0RF Referrals Follow up/Referrals: Reynold Khan MD [Primary Care Provider] - See instructions Activity Restrictions/Add. Instructions Additional Instructions/Restrictions: Your work-up in the emergency department today did not reveal any life-threatening or dangerous conditions. I suspect that your symptoms are secondary to anxiety. Please follow-up with your primary care doctor regarding your symptoms. Return to the emergency department immediately if you feel worse in any way. Clinical Impressions Clinical Impression: Anxiety, Panic attack Instructions Patient Instructions: DI for Panic Disorder, Anxiety and Panic Attacks (Alternative Therapy) Discharge ED Provider: Wilfredo,El Anxiety HPI General Chief Complaint: Shortness of Breath/Dyspnea Stated Complaint: SOA Time Seen by Provider: 09/12/22 12:00 Mode of Arrival: EMS Source of Information: Patient, Relative and EMS History of Present Illness HPI narrative: The patient presents via EMS from home. The chief complaint was shortness of breath. The patient was recently diagnosed with a sinus infection but is now unable to breathe normally. The report from EMS states that the patient seems quite anxious and when she is able to be redirected her breathing becomes normal. The patient's son told me that the patient overdosed on diazepam approximately 2 months ago and has since been off of all anxiety medications. The patient also complains of a headache. Symptoms: dyspnea and sense of impending doom Severity: severe Related Data Home Medications Medication Instructions Recorded Confirmed diazepam 10 mg tablet 10 mg PO TIDP PRN Anxiety 05/03/17 06/11/21 atenolol 25 mg tablet 25 mg PO DAILY Hypertension 10/05/17 06/11/21 fluticasone propionate 50 1 spray NOSTRIL-B DAILY Allergy 01/31/19 06/11/21 mcg/actuation nasal symptoms spray,suspension levothyroxine 50 mcg tablet 50 mcg PO DAILY Hypothyroidism 01/31/19 06/11/21 metformin 500 mg tablet 500 mg PO HS Diabetes 01/31/19 06/11/21 rosuvastatin 20 mg tablet 20 mg PO HS Cholesterol 01/31/19 06/11/21 trazodone 150 mg tablet 300 mg PO HS sleep 01/31/19 06/11/21 omeprazole 40 mg capsule,delayed 40 mg PO BID GERD 02/01/19 06/11/21 release furo
--- NOTE | 2022-09-12 12:01 | PC.NURSE ---
pt son at
[2022-09-12 12:07] VITALS: BMI 26.6
[2022-09-12 12:30] VITALS: BP 125/79; PULSE 107
[2022-09-12 13:00] VITALS: BP 125/87; O2SAT 97
--- NOTE | 2022-09-12 13:03 | ECG_ITS ---
APPROVED REPORT Exam: Resting ECG HR:92 bpm ECG Measurements Heart Rate 92 AXES GA 156 P 69 QRSd 86 QRS 72 QT 357 T 49 QTc [address] DEVIATION AND MODERATE T-WAVE ABNORMALITY, CONSIDER ANTERIOR ISCHEMIA [-0.1+ mV T-WAVE IN V3/V4] ABNORMAL ECG UNCONFIRMED REPORT Electronically signed by : Rachid Fields MD 09/13/2022 08:16:25
--- NOTE | 2022-09-12 13:12 | XR_ITS ---
PROCEDURE INFORMATION: Exam: XR Chest Exam date and time: 09/12/2022 1:17 PM Age: 67 years old Clinical indication: Dyspnea TECHNIQUE: Imaging protocol: Radiologic exam of the chest. Views: 1 view. Portable supine chest x-ray. COMPARISON: CR XR CHEST PORTABLE 07/24/2022 5:45 PM FINDINGS: Lungs: No consolidation or lung nodules. Pleural spaces: No pleural effusion. No pneumothorax. Heart/Mediastinum: No abnormalities. No cardiomegaly. No pulmonary vascular congestion. Bones/joints: No fractures or bone lesions. IMPRESSION: No acute findings in the chest. No change since 07/24/2022.
--- NOTE | 2022-09-12 13:12 | PC.NURSE ---
1300- pt assisted to bathroom and back to bed, staff x1, pt tolerated ambulation well. when getting back to bed, pt began having rapid respirations, started c/o chest pain. EKG performed at 1303, given to ER .
--- NOTE | 2022-09-12 13:21 | PC.NURSE ---
lab notified of new orders on pt.
[2022-09-12 13:25] LABS: Basophils % 0.4 % (0.1-2.0); Eosinophils % 0.3 % (0.1-12.0); Hemoglobin 13.9 g/dL (12.2-16.2); Lymphocytes # 3.4 K/mm3 (0.7-4.5); Lymphocytes % 38.4 % (10-50); Mean Corpuscular HGB Conc 32.3 g/dL (31.8-35.4); Mean Corpuscular Hemoglobin 26.2 pg (27.0-31.2); Mean Corpuscular Volume 81.1 fl (81-99); Mean Platelet Volume 8.8 fl (7.4-10.4); Monocytes # 0.3 K/mm3 (0.1-1.0); Monocytes % 2.9 % (1.7-9.3); Neutrophils # 5.1 K/mm3 (1.8-7.8); Neutrophils % 57.9 % (37.0-80.0); Platelet Count 215 K/mm3 (142-424); Red Cell Distribution Width 16.3 % (11.5-17.5); White Blood Count 8.8 K/mm3 (4.8-10.8)
[2022-09-12 13:26] LABS: Chloride 102 mmol/L (98-107); Potassium 3.8 mmoL/L (3.5-5.1); Sodium 135 mmol/L (136-145)
[2022-09-12 13:29] LABS: Anion Gap 20.8 mEq/L (5-15); Blood Urea Nitrogen 10 mg/dl (7-17); Calcium 9.6 mg/dl (8.4-10.2); Carbon Dioxide 16 mmol/L (22.0-30.0); Creatinine Clearance Estimated 60 mL/min (50-200); Estimated Glomerular Filt Rate 83 ml/min (>60); GFR (African American) 101 ML/MIN (>60); Glucose 145 mg/dl (74-100)
[2022-09-12 13:30] VITALS: BP 121/74; PULSE 70; O2SAT 94
[2022-09-12 13:39] LABS: NT Pro Brain Natriuretic Pep. 81.6 pg/mL (0-125)
[2022-09-12 13:42] LABS: Troponin I < 0.01 ng/ml (0.00-0.034)
--- NOTE | 2022-09-12 13:50 | PC.NURSE ---
ROUNDED ON PT, SLEEPING SOUNDLY ON RIGHT SIDE, NO DISTRESS NOTED
--- NOTE | 2022-09-12 14:06 | PC.NURSE ---
FAMILY NOTIFIED PT IS READY FOR DISCHARGE
[2022-09-12 14:35] VITALS: BP 120/75; PULSE 77; RESP 18; TEMP 37.2; O2SAT 96
== END 2022-09-12 14:35 | disposition home or self-care (01) ==
PROVIDERS: Emergency Provider Emergency Medicine; PCP Family Medicine
DX: F41.0 Panic disorder [episodic paroxysmal anxiety] (principal); R06.02 Shortness of breath; Z87.891 Personal history of nicotine dependence
CPT/HCPCS: 71045; 80048; 83880; 84484; 85025; 93005; 96372; 96374; 96375; 99284; 99285; J0131; J2405

== ENCOUNTER 2023-05-17 11:01 | Outpatient (CLI) | payer MEDICARE, SELFPAY ==
[2023-05-17 11:42] LABS: Basophils # 0.1 K/mm3 (0-0.2); Basophils % 0.9 % (0.1-2.0); Eosinophils # 0.1 K/mm3 (0.0-0.4); Eosinophils % 0.8 % (0.1-12.0); Hematocrit 36.5 % (37.0-47.0); Hemoglobin 11.8 g/dL (12.2-16.2); Lymphocytes # 2.5 K/mm3 (0.7-4.5); Lymphocytes % 34.5 % (10-50); Mean Corpuscular HGB Conc 32.4 g/dL (31.8-35.4); Mean Corpuscular Hemoglobin 26.7 pg (27.0-31.2); Mean Corpuscular Volume 82.4 fl (81-99); Mean Platelet Volume 8.7 fl (7.4-10.4); Monocytes # 0.3 K/mm3 (0.1-1.0); Monocytes % 3.7 % (1.7-9.3); Neutrophils # 4.4 K/mm3 (1.8-7.8); Platelet Count 183 K/mm3 (142-424); Red Blood Count 4.43 M/mm3 (4.20-5.40); Red Cell Distribution Width 17.4 % (11.5-17.5); White Blood Count 7.3 K/mm3 (4.8-10.8)
[2023-05-17 11:56] LABS: Hemoglobin A1C 6.8 % (4.0-6.0)
[2023-05-17 12:01] LABS: Alanine Aminotransferase 19 U/L (12-78); Albumin Level 4.2 g/dl (3.5-5.0); Albumin/Globulin Ratio 1.6 (1.1-1.8); Alkaline Phosphatase 55 U/L (38-126); Amylase 39 U/L (30-110); Anion Gap 14.3 mEq/L (5-15); Aspartate Amino Transferase 26 U/L (14-36); Bilirubin,Total 0.5 mg/dl (0.2-1.3); Blood Urea Nitrogen 14 mg/dl (7-17); Calcium 9.4 mg/dl (8.4-10.2); Carbon Dioxide 23 mmol/L (22.0-30.0); Chloride 105 mmol/L (98-107); Chol/HDL Ratio 3.4 (1-3.5); Cholesterol 174 mg/dl (140-200); Estimated Glomerular Filt Rate 83 ml/min (>60); GFR (African American) 101 ML/MIN (>60); Globulin 2.7 g/dL (1.3-3.2); Glucose 122 mg/dl (74-100); HDL Cholesterol 51 mg/dl (40-60); Lipase 52 U/L (23-300); Potassium 4.3 mmoL/L (3.5-5.1); Sodium 138 mmol/L (136-145); Total Protein,Serum 6.9 g/dl (6.3-8.2); Triglycerides 157 mg/dl (30-150); Uric Acid 4.2 mg/dl (2.5-6.2); VLDL Cholesterol 31 mg/dL (0-40)
[2023-05-17 12:12] LABS: Direct LDL Cholesterol 91.49 mg/dL (100-129)
[2023-05-17 12:17] LABS: Free T4 (Free Thyroxine) 1.03 ng/dl (0.78-2.19)
[2023-05-17 12:32] LABS: Thyroid Stimulating Hormone 2.04 uIU/mL (0.465-4.68)
[2023-05-17 12:40] LABS: Erythrocyte Sedimentation Rate 33 mm/hr (0-30)
[2023-05-18 08:18] LABS: RA Latex Turbid. <10.0 IU/mL (<14.0); Triiodothyronine (T3) Free 2.3 pg/mL (2.0-4.4)
[2023-05-18 14:43] LABS: Antinuclear Antibodies, IFA Negative (.)
[2023-05-19 08:03] LABS: H. pylori Breath Test Negative (Negative)
== END 2023-05-17 23:59 ==
LOC: LAB 11:03
PROVIDERS: PCP Nurse Practitioner Family; Visit Provider Nurse Practitioner Family
DX: E03.9 Hypothyroidism, unspecified (principal); R11.0 Nausea; R14.0 Abdominal distension (gaseous); M25.50 Pain in unspecified joint; E11.9 Type 2 diabetes mellitus without complications; R10.9 Unspecified abdominal pain; Z79.84 Long term (current) use of oral hypoglycemic drugs; Z79.899 Other long term (current) drug therapy
CPT/HCPCS: 36415; 80053; 80061; 82150; 83013; 83036; 83690; 84439; 84443; 84481; 84550; 85025; 85651; 86038; 86431

== ENCOUNTER 2023-05-25 09:28 | Outpatient (CLI) | payer MEDICARE, SELFPAY ==
--- NOTE | 2023-05-25 09:29 | XR_ITS ---
FINAL REPORT TECHNIQUE: Bone mineral density was calculated of the lumbar spine and hips. CLINICAL HISTORY: osteoporosis screening COMPARISON: 11/02/2021 FINDINGS: Using L1-4, the bone mineral density of the spine is 0.865 g/cm2, corresponding to T-score of -1.7. Using the left hip, the bone mineral density of the femoral neck is 0853 g/cm2, corresponding to a T-score of -0.7. Using the right hip the bone mineral density of the femoral neck is 0.81 g/cm?, corresponding to a T-score of -1.1 NOTE: T-score: Standard deviation compared with peak bone mass of young adult mean. *Following the recommendations of the International Society of Bone densitometry, classification of hip BMD is based on the lower of two T-scores; total hip or femoral neck. IMPRESSION: Diminished bone mineral density of the lumbar spine and right hip consistent with osteopenia. Normal bone mineral density of the left hip. Reviewed, Interpreted and Dictated by Etienne Serrano III, MD Transcribed by Nesha Robles Authenticated and [facility]
--- NOTE | 2023-05-25 09:29 | US_ITS ---
FINAL REPORT CLINICAL HISTORY: thyroid enlarged, tender, hoarseness COMPARISON: None FINDINGS: THYROID ULTRASOUND: The right lobe of the thyroid measures 4.4 x 1.9 x 1.2 cm in size. No focal mass or nodule is identified in the right lobe of the thyroid. The left lobe of the thyroid measures 3.6 x 1.2 x 1.1 cm in size. No focal mass or nodule is identified in the left lobe of the thyroid. The isthmus of the thyroid measures 2.4 mm in thickness. Note is made of an enlarged right jugular vein of uncertain significance. IMPRESSION: No focal thyroid mass or nodule is visualized. Note is made of an enlarged right jugular vein of uncertain significance. Reviewed, Interpreted and Dictated by Etienne Serrano III, MD Transcribed by Nesha Robles Authenticated and [facility]
== END 2023-05-25 23:59 ==
LOC: RAD 09:29
PROVIDERS: PCP Nurse Practitioner Family; Visit Provider Nurse Practitioner Family
DX: Z13.820 Encounter for screening for osteoporosis (principal); R49.0 Dysphonia; E01.0 Iodine-deficiency related diffuse (endemic) goiter; Z78.0 Asymptomatic menopausal state
CPT/HCPCS: 76536; 77080

== ENCOUNTER 2023-05-31 17:22 | Outpatient (CLI) | payer MEDICARE, SELFPAY ==
[2023-05-31 17:48] LABS: Basophils # 0.1 K/mm3 (0-0.2); Basophils % 0.6 % (0.1-2.0); Eosinophils % 0.3 % (0.1-12.0); Hematocrit 39.9 % (37.0-47.0); Hemoglobin 12.6 g/dL (12.2-16.2); Lymphocytes # 2.2 K/mm3 (0.7-4.5); Mean Corpuscular HGB Conc 31.5 g/dL (31.8-35.4); Mean Corpuscular Hemoglobin 26.6 pg (27.0-31.2); Mean Corpuscular Volume 84.5 fl (81-99); Mean Platelet Volume 8.2 fl (7.4-10.4); Monocytes # 0.3 K/mm3 (0.1-1.0); Monocytes % 3.1 % (1.7-9.3); Neutrophils # 5.8 K/mm3 (1.8-7.8); Platelet Count 216 K/mm3 (142-424); Red Blood Count 4.72 M/mm3 (4.20-5.40); Red Cell Distribution Width 17.3 % (11.5-17.5); White Blood Count 8.4 K/mm3 (4.8-10.8)
[2023-05-31 18:51] LABS: Iron 37 ug/dL (37-170)
[2023-05-31 19:00] LABS: Total Iron Binding Capacity 456 ug/dL (265-497)
[2023-05-31 19:16] LABS: 25-OH Vitamin D, Total 111 ng/mL (30-100)
[2023-05-31 19:27] LABS: Ferritin 6.52 ng/ml (11.1-264)
[2023-05-31 20:19] LABS: Vitamin B12 734 pg/mL (239-931)
[2023-06-04 12:39] LABS: Antinuclear Antibodies (ANA) Negative
== END 2023-05-31 23:59 ==
LOC: LAB.DROPOF 17:23
PROVIDERS: PCP Nurse Practitioner Family; Visit Provider Nurse Practitioner Family
DX: Z79.899 Other long term (current) drug therapy (principal); R11.0 Nausea; R14.0 Abdominal distension (gaseous); R19.7 Diarrhea, unspecified; D50.9 Iron deficiency anemia, unspecified; R20.0 Anesthesia of skin; R20.2 Paresthesia of skin
CPT/HCPCS: 82306; 82607; 82728; 83540; 83550; 85025; 86038

== ENCOUNTER 2023-06-02 16:26 | Outpatient (CLI) | payer MEDICARE, SELFPAY ==
[2023-06-02 16:32] LABS: Microscopic, Urine URINE MICROSCOPIC (MICROSCOPIC)
[2023-06-02 19:58] LABS: Appearance,Urine CLEAR (Clear); Bilirubin,Urine Negative (Negative); Blood, Urine Negative (Negative); Color,Urine YELLOW (Yellow); Glucose,Urine (UA) Negative (Negative); Ketones,Urine Negative (Negative); Leukocyte Esterase,Urine Negative (Negative); Nitrate,Urine Negative (Negative); PH,Urine 5.5 (5.0-8.5); Protein,Urine Negative (Negative); Specific Gravity, Urine >= 1.030 (1.005-1.030); Urobilinogen,Urine 0.2 EU/dl (0.2)
[2023-06-02 20:31] LABS: Bacteria,Urine Trace /lpf; Squamous Epithelial Cell,Urine Occasional #/hpf (0-5); WBC,Urine Occasional #/hpf (0-3)
== END 2023-06-02 23:59 ==
LOC: LAB.DROPOF 16:26
PROVIDERS: PCP Nurse Practitioner Family; Visit Provider Nurse Practitioner Family
DX: R11.0 Nausea (principal); R14.0 Abdominal distension (gaseous); R19.7 Diarrhea, unspecified
CPT/HCPCS: 81001; 87045; 87205; 87493

== ENCOUNTER 2023-06-13 08:57 | Outpatient (CLI) | payer MEDICARE, SELFPAY ==
--- NOTE | 2023-06-13 08:58 | CT_ITS ---
FINAL REPORT TECHNIQUE: Thin section axial images were obtained from the lung apices to the upper abdomen by computed tomography. Reformatted images were obtained and reviewed. This study was performed with techniques to keep radiation doses al low as reasonably achievable (ALARA). Individualized dose reduction techniques using automated exposure control or adjustment of mA and/or kV according to the patient's size were employed. CLINICAL HISTORY: lung cancer screening CURRENT SMOKER 1PPD X55 YEARS COMPARISON: 07/24/2022 FINDINGS: CHEST CT LOW DOSE 67-year-old current smoker, [id number] history. CTDI vol (mGy): 2.9 DLP (mGy-cm): 103.94 Severe coronary artery calcifications are present, responsible for the S designation in this patient. There is no axillary adenopathy. There is no mediastinal or hilar mass or adenopathy. The heart is normal in size. There is no pericardial or pleural effusion. There is mild emphysema and mild pulmonary scarring. Lung window images demonstrate a 14 mm lobular nodule in the lateral left upper lobe, that was 10 mm in size on the prior CT of July 2022, and is now cavitary. There are several other less than 5 mm in size nodules in the lateral left upper lobe. Limited images of the upper abdomen show that the patient is post cholecystectomy.. IMPRESSION: Lung-RADS category 4BS. Recommend PET CT and CT-guided biopsy. Reviewed, Interpreted and Dictated by Etienne Serrano III, MD Transcribed by Nesha Robles Authenticated and [facility]
--- NOTE | 2023-06-13 08:58 | CT_ITS ---
FINAL REPORT CLINICAL HISTORY: ABD BLOATING COMPARISON: 06/10/2021 FINDINGS: CT OF THE ABDOMEN AND PELVIS WITH CONTRAST Axial CT images of the abdomen and pelvis were obtained after the administration of IV contrast. Coronal and sagittal reformatted images were also obtained and reviewed. This study was performed with techniques to keep radiation doses as low as reasonably achievable (ALARA). Individualized dose reduction techniques using automated exposure control or adjustment of mA and/or kV according to the patient's size were employed. Abdomen: There is mild atelectasis/scarring present in the lung bases.. The heart is normal in size. The gallbladder has been surgically resected. There is mild biliary ductal dilatation, stable, favor post cholecystectomy change. The spleen is unremarkable. No adrenal mass is present. The pancreas has an unremarkable appearance. The kidneys are normal, without evidence of mass or hydronephrosis. The aorta is normal in caliber. There is no free fluid or adenopathy. No mass or abnormal fluid collection is seen. There are air-filled loops of small bowel, that may represent an enteritis or an ileus. Pelvis: The appendix is not well-visualized. The urinary bladder is unremarkable. No inflammatory process is seen. There is no evidence of mass or adenopathy. There is no evidence of bowel obstruction. IMPRESSION: Multiple air-filled loops of small bowel that may represent an enteritis or ileus. Mild biliary ductal dilatation, favor post cholecystectomy change. Reviewed, Interpreted and Dictated by Etienne Serrano III, MD Transcribed by Nesha Robles Authenticated and [facility]
[2023-06-13] MEDS: IOPAMIDOL-370 (76%);100ML BOTTLE 75 ML IV (09:46)
[2023-06-13] MEDS: SODIUM CHLORIDE 0.9% 10ML SYR (RAD ONLY) 10 ML IV (09:46)
== END 2023-06-13 23:59 ==
LOC: RAD 08:58
PROVIDERS: PCP Nurse Practitioner Family; Visit Provider Nurse Practitioner Family
DX: R14.0 Abdominal distension (gaseous) (principal); F17.210 Nicotine dependence, cigarettes, uncomplicated
CPT/HCPCS: 71271; 74177; Q9967

== ENCOUNTER 2023-06-15 15:16 | Observation (INO) | payer MEDICARE, SELFPAY ==
[2023-06-15] VITALS (14 sets, daily range): BP systolic 115–161; BP diastolic 48–100; PULSE 56–84; RESP 16–18; TEMP 36.8–37; O2SAT 94–98; BMI 30.9; BMI 31.7
[2023-06-15 15:38] LABS: Basophils # 0.1 K/mm3 (0-0.2); Basophils % 0.8 % (0.1-2.0); Eosinophils # 0.1 K/mm3 (0.0-0.4); Eosinophils % 0.8 % (0.1-12.0); Hematocrit 39.4 % (37.0-47.0); Hemoglobin 12.4 g/dL (12.2-16.2); Lymphocytes # 1.8 K/mm3 (0.7-4.5); Lymphocytes % 25.9 % (10-50); Mean Corpuscular HGB Conc 31.4 g/dL (31.8-35.4); Mean Corpuscular Hemoglobin 26.1 pg (27.0-31.2); Mean Corpuscular Volume 82.9 fl (81-99); Mean Platelet Volume 8.1 fl (7.4-10.4); Monocytes # 0.2 K/mm3 (0.1-1.0); Neutrophils # 4.8 K/mm3 (1.8-7.8); Neutrophils % 69.5 % (37.0-80.0); Platelet Count 199 K/mm3 (142-424); Red Blood Count 4.75 M/mm3 (4.20-5.40); Red Cell Distribution Width 17.2 % (11.5-17.5); White Blood Count 6.9 K/mm3 (4.8-10.8)
--- NOTE | 2023-06-15 15:38 | CT_ITS ---
PROCEDURE INFORMATION: Exam: CT Abdomen And Pelvis With Contrast Exam date and time: 06/15/2023 4:44 PM Age: 67 years old Clinical indication: Abdominal pain; Additional info: Abd pain/n/v/d/syncope TECHNIQUE: Imaging protocol: Computed tomography of the abdomen and pelvis with contrast. Radiation optimization: All CT scans at this facility use at least one of these dose optimization techniques: automated exposure control; mA and/or kV adjustment per patient size (includes targeted exams where dose is matched to clinical indication); or iterative reconstruction. Contrast material: ISOVUE; Contrast volume: 75 ml; Contrast route: IV; COMPARISON: CT ABDOMEN PELVIS W CON 06/13/2023 9:32 AM FINDINGS: Liver: Minor intrahepatic biliary ductal dilatation is present, likely a post cholecystectomy basis. The liver demonstrates a punctate calcification consistent with remote granulomatous organism exposure. The liver is otherwise within range of normal. Gallbladder and bile ducts: There has been a cholecystectomy. There is a mild, expected degree of common bile duct dilation. Pancreas: The pancreas is normal. Spleen: There is mild nonspecific splenomegaly. The spleen measures 14.3 cm in AP dimension. An accessory splenule is present. Adrenal glands: The adrenal glands are normal. Kidneys and ureters: There is a focal subcentimeter right renal hypodensity that cannot be further characterized on the current examination. Statistically, this is likely a cyst. The Kidneys are otherwise within range of normal. Stomach and bowel: Apparent gastric mural thickening could be on the basis of incomplete distension but cannot exclude gastritis or other inflammatory or infiltrative process. Correlate clinically. The duodenum is unremarkable. Unopacified loops of small bowel within range of normal. There is mild mucosal enhancement in minor mural thickening involving the distal colon predominantly from the sigmoid colon distally. Correlate clinically. Appendix: The proximal appendix is normal caliber. The distal tip of the appendix is minimally prominent measuring approximately 7 mm without adjacent inflammatory change. These findings are stable dating back to 06/10/2021 suggesting chronic process. Intraperitoneal space: No free air. No significant fluid collection. Vasculature: The aorta and iliac arteries demonstrate moderate atherosclerotic calcification. Lymph nodes: There is no evidence of pathologic adenopathy. Urinary bladder: The bladder is incompletely distended. Reproductive: The uterus is within range of normal for the patient's age. No adnexal cysts or masses are identified. Bones/joints: The thoracolumbar spine demonstrates mild degenerative changes at multiple levels. There is prominent leftward neural foraminal narrowing at the L4-L5. There is partial sacralization of the L5 segment. The level due to marginal osteophytes. Mild right parasagittal posterior bar/disc at the T12-L1 level level produces mild right anterolateral effacement upon the thecal sac. Soft tissues: No significant soft tissue edema. There is likely a very small fat containing left parasagittal ventral hernia best seen on series 5, image 44 and series 7 image 60. Other findings: Findings within the lower chest are described in the associated CT of the chest report from the same date and time. Please reference that report for additional information. IMPRESSION: 1. Mild mucosal enhancement and mural thickening involving the distal colon predominantly from the sigmoid colon distally. Findings raise the question of colitis/inflammatory bowel disease. This appears increased from prior exam. Other inflammatory/infiltrative processes including neoplasm or ischemia are not excluded in the appropriate setting. Correlate clinically. 2. Mild stable splenomegaly. 3. Apparent gastric mural thickening could be on the basis of incomplete distension but cannot exclude gastritis or other inflammatory or infiltrative process. This appears mildly increased from prior exam. Correlate clinically. COMMENTS: Consistent with the [employer]'s Incidental Findings Committee white paper (J Am Georgi Radiol 2018): Any incidental renal lesion less than 1 cm or classified as too small to characterize, or any incidental cystic renal lesion characterized as simple-appearing, is likely benign. No follow-up imaging is recommended for these lesions per consensus recommendations based on imaging criteria.
--- NOTE | 2023-06-15 15:38 | CT_ITS ---
PROCEDURE INFORMATION: Exam: CTA Chest With Contrast Exam date and time: 06/15/2023 4:44 PM Age: 67 years old Clinical indication: Other: Syncope TECHNIQUE: Imaging protocol: Computed tomographic angiography of the chest with contrast. Exam focused on the arteries. 3D rendering (Not supervised by radiologist): MIP and/or 3D reconstructed images were created by the technologist. Radiation optimization: All CT scans at this facility use at least one of these dose optimization techniques: automated exposure control; mA and/or kV adjustment per patient size (includes targeted exams where dose is matched to clinical indication); or iterative reconstruction. Contrast material: ISOVUE; Contrast volume: 75 ml; Contrast route: INTRAVENOUS (IV); COMPARISON: CT ANGIO CHEST PE PROTOCOL 07/24/2022 7:04 PM FINDINGS: Pulmonary arteries: There is no evidence of filling defects within the pulmonary arterial circulation to suggest pulmonary embolism. There is enlargement of the main pulmonary artery measuring 3.3 cm suggesting pulmonary arterial hypertension. Aorta: The aorta demonstrates mild atherosclerotic calcification. There is no evidence of an aortic aneurysm. There is no evidence of aortic dissection, leak, rupture, or other acute vascular pathology. Thyroid: The visualized thyroid gland is normal. Lungs: There is a small subpleural peripherally based cavitary lesion in the superolateral left upper lobe measuring 15.4 x 12.2 x 13.2 mm. This shows mild contour spiculation. This is best seen on series 13, images 23-25. There is a 3 mm subpleural nodular density in the anterior aspect of the left upper lobe seen on series 13, image 45. There is minor central lobular emphysema. Otherwise, no focal areas of consolidation. Pleural spaces: There are no pleural effusions. No pneumothorax. Heart: There is a trace amount of pericardial fluid. Coronary arteries: There is severe atherosclerotic calcification of the coronary arteries. Lymph nodes: There is no evidence of pathologic adenopathy. A subcarinal lymph node measures 9.3 mm in short axis. Diaphragm: There is mild elevation of the right hemidiaphragm. Intraperitoneal space: Findings within the upper abdomen are described in the associated CT of the abdomen and pelvis report from the same date and time. Please reference that report for additional information. Bones/joints: The thoracolumbar spine demonstrates moderate degenerative changes at multiple levels. There is no evidence of acute fracture. Soft tissues: No significant soft tissue edema. IMPRESSION: 1. Small peripherally based cavitary lesion in the superolateral left upper lobe measuring 15.4 x 12.2 x 13.2 mm with mild contour spiculation. Differential primarily includes malignancy versus infection/inflammatory process. Recommend pulmonary consultation. Consider non-emergent PET/CT, or tissue sampling.(Reference: Gildardo) 2. No evidence of pulmonary embolism. 3. Mild enlargement of the main pulmonary artery suggesting pulmonary arterial hypertension. 5. 3 mm nodular density in the left upper lobe. For patients at low risk (minimal or absent history of smoking and of other known risk factors), no routine follow-up is indicated. For patients at high risk (history of smoking or of other known risk factors), consider optional CT Chest at 12 months. (Reference: Gildardo) REFERENCES: 1. [place] H, et al. Guidelines for Management of Incidental Pulmonary Nodules Detected on CT Images: From the Fleischner Society 2017. Radiology. 2017;284(1):228-243. 2. [place] H, et al. Guidelines for Management of Incidental Pulmonary Nodules Detected on CT Images: From the Fleischner Society 2017. Radiology. 2017;284(1):228-243.
[2023-06-15] MEDS: RINGERS SOLUTION,LACTATED 500 ML 999 ML IV (15:40)
[2023-06-15] MEDS: ONDANSETRON 4MG/2ML VIAL 4 MG IV (15:40)
[2023-06-15 15:46] LABS: Microscopic, Urine URINE MICROSCOPIC (MICROSCOPIC)
--- NOTE | 2023-06-15 15:46 | ECG_ITS ---
APPROVED REPORT Exam: Resting ECG HR:60 bpm ECG Measurements Heart Rate 60 AXES MA 184 P 70 QRSd 97 QRS 67 QT 414 T 47 QTc 414 Conclusion SINUS RHYTHM NONSPECIFIC T-WAVE ABNORMALITY Electronically signed by : ILA BRADY, 06/15/2023 23:26:44
[2023-06-15 15:47] LABS: Chloride 106 mmol/L (98-107); Potassium 4.1 mmoL/L (3.5-5.1); Sodium 139 mmol/L (136-145)
--- NOTE | 2023-06-15 15:48 | HMH.EDGENADL ---
Discharge Plan Disposition Patient Disposition: Admitted Condition: Good Clinical Impressions Clinical Impression: Cavitary lesion of lung, Abdominal pain, Lung nodule, Colon wall thickening, Colitis, General weakness Discharge ED Provider: Rima Webster General Adult HPI General Chief complaint: Nausea/Vomiting/Diarrhea Stated complaint: sent from PHYS- leg swelling, abdominal pain Time Seen by Provider: 06/15/23 15:19 Mode of Arrival: Wheelchair Source of Information: Patient Limitations: No Limitations Description of Symptoms (Recalled from ER Triage Doc. by RN): pt presents to ED stating her PCP sent her for lower extremity swelling, low back pain and vomiting. per report pt states she has been vomiting 3-4 days. History of Present Illness HPI narrative: This patient is a 67-year-old female with history of hypertension, hyperlipidemia, hypothyroidism, type 2 diabetes, anxiety, iron deficiency anemia, and GERD presenting to the emergency department for evaluation with concern for syncope. Patient reports that she went to her PCPs office today for follow-up because she had been having diarrhea chronically. She states that for several weeks now, she has been having loose, watery diarrhea that is nonbloody and nonmelanotic. She states that anything she eats passes right through her. She has a hard time maintaining a good appetite because of this and had not eaten or drink much today. She states that she is also had some low back pain, nausea, and vomiting has been going on for 3 to 4 days now. She is also had bilateral lower extremity swelling. She went to her PCPs office today, and when she reported all of the symptoms to them, she was sent to the ED for further evaluation and management. She denies any associated headaches, vision changes, chest pain, shortness of breath, or palpitations. No history of blood clots or clotting disorders. No recent surgery or immobilization. She does note that she has had some mild generalized abdominal pain that seems to migrate. It is not well localizable. She has a remote history of cholecystectomy and x 2. On medical record review, she underwent CT imaging on 06/13/2023 of her chest, abdomen, and pelvis and was found to have a lung nodule for which biopsy was recommended as well as findings concerning for enteritis versus ileus. Related Data Home Medications Medication Instructions Recorded Confirmed atenolol 25 mg tablet 25 mg PO DAILY Hypertension 10/05/17 06/15/23 levothyroxine 50 mcg tablet 50 mcg PO DAILY Hypothyroidism 01/31/19 06/15/23 rosuvastatin 20 mg tablet 20 mg PO HS Cholesterol 01/31/19 06/15/23 omeprazole 40 mg capsule,delayed 40 mg PO BID GERD 02/01/19 06/15/23 release polyethylene glycol 3350 17 17 g PO DAILY Constipation 06/11/21 06/15/23 gram/dose oral powder alendronate 70 mg tablet 70 mg PO WEEKLY 05/17/23 06/15/23 blood sugar diagnostic (Easy Touch #10 ea 05/17/23 06/15/23 Test Strip) cetirizine 10 mg tablet 10 mg PO DAILY 05/17/23 06/15/23 fluticasone propionate 50 1 spray intranasal DAILY Allergy 05/17/23 06/15/23 mcg/actuation nasal symptoms spray,suspension indomethacin 25 mg capsule 25 mg PO TID PRN antiiflamatory 05/17/23 06/15/23 metformin 850 mg tablet 850 mg PO HS 05/17/23 06/15/23 sertraline 100 mg tablet 100 mg PO DAILY 05/17/23 06/15/23 trazodone 100 mg tablet 100 mg PO HS 05/17/23 06/15/23 albuterol sulfate 90 mcg/actuation 2 puff inhalation Q4-6H PRN copd 05/31/23 06/15/23 aerosol inhaler budesonide-formoterol HFA 80 1 puff inhalation Q12H 05/31/23 06/15/23 mcg-4.5 mcg/actuation aerosol inhaler ondansetron HCl 4 mg tablet 4 mg PO Q8H PRN nausea 05/31/23 06/15/23 Previous Rx's Medication Instructions Recorded potassium chloride 10 mEq 10 meq PO BID Supplement ##60 09/17/19 capsule,extended release oxybutynin chloride 10 mg 10 mg PO DAILY #30 tabs 04/23/21 tablet,extended release 24 hr buspirone 5 mg tablet 5 mg PO BID #60 tabs 06/03/23 Allergies Allergy/AdvReac Type Severity Reaction Status Date / Time nickel Allergy Intermediate I-RASH Verified 06/15/23 14:54 silk Allergy Mild I-RASH Verified 06/15/23 14:54 cefaclor Allergy Unknown RASH/DIFF Verified 04/03/24 14:54 BREATHING ibuprofen Allergy Unknown NA-NAUSEA/V Verified 06/15/23 14:54 OMITING levofloxacin [From Levaquin] Allergy Unknown Unknown Verified 06/15/23 14:54 allergy reaction morphine Allergy Unknown BOTTOMS Verified 06/15/23 14:54 OUT UP nitrofurantoin Allergy Unknown Unknown Verified 06/15/23 14:54 [From MACROBID] allergy reaction Sulfa (Sulfonamide Allergy Unknown Unknown Verified 06/15/23 14:54 Antibiotics) allergy reaction SURGICAL STEEL Allergy Intermediate I-RASH Uncoded 06/15/23 14:54 PFSH [facility] Disclaimer: The information contained in this section may have been updated after the patient was seen, as this information can be updated by other users. Surgical History H/O left breast biopsy Hx of cholecystectomy History of Family History Sister Cancer Social History Smoking Status: Current every day smoker tobacco type: cigarettes packs per day: 1 alcohol intake: never substance use type: denies use current occupational status: retired Travel in the last 8 weeks: None household members: family and friend(s) housing: house caffeine: Yes ROS Obtained: Yes All systems reviewed & no additional complaints except as documented Physical Exam General General appearance: alert, in no apparent distress and obese Head Head exam: atraumatic and normocephalic Eye Eye exam: Present normal appearance, PERRL and EOMI ENT ENT exam: Present normal exam, normal oropharynx, mucous membranes moist and normal external ear exam Neck Neck exam: Present normal inspection, full ROM and trachea midline; Absent tenderness Chest Chest inspection: Present normal inspection and symmetric chest wall rise; Absent tenderness Respiratory Respiratory exam: Present normal lung sounds bilaterally; Absent respiratory distress, wheezes, stridor or accessory muscle use Cardiovascular Cardiovascular exam: Present regular rate and normal rhythm Abdominal Exam Abdominal exam: Present soft and tenderness (Generalized); Absent distention, guarding, rebound or rigidity Extremities Exam Extremities exam: Present full ROM, normal capillary refill and edema (Bilateral lower extremity edema, L>R); Absent tenderness Back Exam Back exam: Present normal inspection and full ROM; Absent tenderness Neurological Exam Neurological exam: Present alert, oriented X3, CN II-XII intact and normal gait; Absent motor sensory deficit Psychiatric Psychiatric exam: Present normal affect and normal mood Skin Skin exam: Present warm and dry Medical Decision Making Medical Records Medical records reviewed: Yes I reviewed the patient's medical records. Saad Inquiry Pt receiving controlled substance: No Vital Signs: 06/15/23 15:17 06/15/23 15:53 06/15/23 16:00 Temperature 98.6 F Temperature Source Oral Pulse Rate 59 L 63 Pulse Rate [Orthostatic Lying] Pulse Rate [Orthostatic Sitting] Pulse Rate [Orthostatic Standing] Pulse Rate [Right Radial] 61 Respiratory Rate 18 Blood Pressure 129/70 139/100 H Blood Pressure [Orthostatic Lying Right Arm] Blood Pressure [Orthostatic Sitting] Blood Pressure [Orthostatic Standing] Blood Pressure [Right Arm] 161/80 H Blood Pressure Mean 89 108 Blood Pressure Mean [Right Arm] 107 Blood Pressure Source Blood Pressure Position 02 Sat by Pulse Oximetry 96 96 96 Oxygen Delivery Method Room Air 06/15/23 16:14 06/15/23 16:30 06/15/23 16:41 Temperature Temperature Source Pulse Rate 58 L 58 L 60 Pulse Rate [Orthostatic Lying] Pulse Rate [Orthostatic Sitting] Pulse Rate [Orthostatic Standing] Pulse Rate [Right Radial] Respiratory Rate 16 16 Blood Pressure 139/100 H 127/72 127/72 Blood Pressure [Orthostatic Lying Right Arm] Blood Pressure [Orthostatic Sitting] Blood Pressure [Orthostatic Standing] Blood Pressure [Right Arm] Blood Pressure Mean 90 Blood Pressure Mean [Right Arm] Blood Pressure Source Automatic Cuff Automatic Cuff Blood Pressure Position Sitting Sitting 02 Sat by Pulse Oximetry 98 96 97 Oxygen Delivery Method Room Air Room Air 06/15/23 16:44 06/15/23 17:05 06/15/23 17:08 Temperature Temperature Source Pulse Rate 63 61 Pulse Rate [Orthostatic Lying] 61 Pulse Rate [Orthostatic Sitting] 62 Pulse Rate [Orthostatic Standing] 72 Pulse Rate [Right Radial] Respiratory Rate Blood Pressure 128/69 142/60 H Blood Pressure [Orthostatic Lying Right Arm] 128/69 Blood Pressure [Orthostatic Sitting] 142/60 H Blood Pressure [Orthostatic Standing] 123/61 Blood Pressure [Right Arm] Blood Pressure Mean 80 87 Blood Pressure Mean [Right Arm] Blood Pressure Source Blood Pressure Position 02 Sat by Pulse Oximetry 98 97 Oxygen Delivery Method 06/15/23 17:10 04/03/24 18:35 Temperature Temperature Source Pulse Rate 73 70 Pulse Rate [Orthostatic Lying] Pulse Rate [Orthostatic Sitting] Pulse Rate [Orthostatic Standing] Pulse Rate [Right Radial] Respiratory Rate 18 Blood Pressure 123/61 129/62 Blood Pressure [Orthostatic Lying Right Arm] Blood Pressure [Orthostatic Sitting] Blood Pressure [Orthostatic Standing] Blood Pressure [Right Arm] Blood Pressure Mean 90 Blood Pressure Mean [Right Arm] Blood Pressure Source Automatic Cuff Blood Pressure Position Sitting 02 Sat by Pulse Oximetry 97 96 Oxygen Delivery Method Lab Data Lab results reviewed: Yes I reviewed the patient's lab results. Lab Results 06/15/23 15:30: WBC 6.9, RBC 4.75, Hgb 12.4, Hct 39.4, MCV 82.9, MCH 26.1 L, MCHC 31.4 L, RDW 17.2, Plt Count 199, MPV 8.1, Neut % (Auto) 69.5, Lymph % (Auto) 25.9, [place] % (Auto) 3.0, Eos % (Auto) 0.8, Baso % (Auto) 0.8, Neut # (Auto) 4.8, Lymph # (Auto) 1.8, [place] # (Auto) 0.2, Eos # (Auto) 0.1, Baso # (Auto) 0.1, Sodium 139, Potassium 4.1, Chloride 106, Carbon Dioxide 28, Anion Gap 9.1, BUN 12, Creatinine 0.80, Estimated Creat Clear 65, Estimated GFR 71, Est GFR ( Amer) 86, Glucose 158 H, Calcium 10.1, Total Bilirubin 0.3, AST 28, ALT 23, Alkaline Phosphatase 63, Troponin I < 0.01, NT-Pro-B Natriuret Pep 129 H, Total Protein 7.7, Albumin 4.3, Globulin 3.4 H, Albumin/Globulin Ratio 1.3, Lipase 43, TSH 2.76, Thyroxine (T4) 8.3 06/15/23 15:40: Urine Color Yellow, Urine Appearance Clear, Urine pH 6.0, Ur Specific Center >= 1.030, Urine Protein Negative, Urine Glucose (UA) Negative, Urine Ketones Negative, Urine Blood Trace-i, Urine Nitrate Negative, Urine Bilirubin Negative, Urine Urobilinogen 0.2, Ur Leukocyte Esterase Negative, Urine RBC Occasional, Urine WBC Occasional, Ur Squamous Epith Cells Occasional, Urine Bacteria None 06/15/23 18:53: Troponin I < 0.01 06/15/23 19:45: Troponin I < 0.01 06/15/23 15:30 06/15/23 15:30 Orders (Tests/Meds): ED MEDICATIONS Generic Name Dose Route Start Last Admin Trade Name Freq PRN Reason Stop Dose Admin Acetaminophen 650 mg 06/15/23 19:45 Acetaminophen 325mg Tab PO 07/15/23 19:44 Q4HP PRN Fever or Mild Pain (1-3) Albuterol Sulfate 2 puff 06/15/23 21:32 Albuterol-Hfa 90mcg/Puff Inhaler 8gm IH 07/15/23 21:31 Q4-6H PRN copd Atenolol 25 mg 06/16/23 09:00 Atenolol 25mg Tablet PO 07/16/23 08:59 DAILY MYKE Buspirone HCl 5 mg 06/16/23 09:00 Buspirone Hcl 5 Mg Tablet PO 07/16/23 08:59 BID MYKE Dicyclomine HCl 10 mg 06/16/23 09:00 Dicyclomine 10mg Capsule PO 07/16/23 08:59 TID MYKE Enoxaparin Sodium 40 mg 06/15/23 20:00 06/15/23 21:31 Enoxaparin 40mg/0.4ml Syringe SQ 07/15/23 19:59 40 mg DAILY MYKE Administration Fluticasone Propionate 1 spray 06/16/23 09:00 Fluticasone Prop 50mcg Nasal [place] 16gm NS 07/16/23 08:59 DAILY MYKE Sodium Chloride 1,000 mls @ 75 mls/hr 06/15/23 19:45 06/15/23 21:30 Sod Chlor 0.9% 1000ml Bag IV 07/15/23 19:44 75 mls/hr .[id number] MYKE Administration Metronidazole 500 mg in 100 mls @ 100 mls/hr 06/15/23 21:30 06/15/23 22:55 Flagyl 500mg/100ml Ivpb IV 06/25/23 21:29 100 mls/hr Q8H MYKE Administration Levothyroxine Sodium 50 mcg 06/16/23 09:00 Levothyroxine 50mcg (0.05mg) Tab PO 07/16/23 08:59 DAILY MYKE Loratadine 10 mg 06/16/23 09:00 Loratadine 10mg Tablet PO 07/16/23 08:59 DAILY MYKE Miscellaneous 1 unit 06/15/23 21:32 Aerochamber/Optihaler MC 06/15/23 21:33 ONCE ONE Nicotine 21 mg 06/15/23 19:45 Nicotine 21mg/24hr Patch TD 07/15/23 19:44 DAILYP PRN Nicotine Cravings Non-Formulary Medication 1 puff 06/15/23 21:45 Budesonide-Formoterol IH 07/15/23 21:44 Q12H MYKE Non-Formulary Medication 100 mg 06/16/23 21:00 Trazodone PO 07/16/23 20:59 HS MYKE Non-Formulary Medication 20 mg 06/16/23 21:00 Rosuvastatin PO 07/16/23 20:59 HS MYKE Ondansetron HCl 4 mg 06/15/23 19:45 Ondansetron 4mg/2ml Vial IV 07/15/23 19:44 Q8HP PRN Nausea Pantoprazole Sodium 40 mg 06/15/23 21:00 06/15/23 21:31 Pantoprazole 40mg Vial IV 07/15/23 20:59 40 mg HS MYKE Administration Sertraline HCl 100 mg 06/16/23 09:00 Sertraline 100mg Tablet PO 07/16/23 08:59 DAILY MYKE Sodium Chloride 10 ml 06/15/23 15:23 Sodium Chloride 0.9% 10ml Flush Syringe IV 07/15/23 15:22 NEEDED PRN Maintain IV Site Discontinued Medications Generic Name Dose Route Start Last Admin Trade Name Freq PRN Reason Stop Dose Admin Dicyclomine HCl 20 mg 06/15/23 18:42 06/15/23 18:51 Dicyclomine 10mg Capsule PO 06/15/23 18:43 20 mg ONCE ONE Administration Hydromorphone HCl 0.25 mg 06/15/23 18:42 06/15/23 18:51 Hydromorphone 2mg/Ml Syringe IV 06/15/23 18:43 0.25 mg ONCE ONE Administration Lactated Ringer's 500 mls @ 999 mls/hr 06/15/23 15:35 06/15/23 15:40 Lactated Ringer's 500ml IV 06/15/23 16:05 999 mls/hr .Q31M ONE Administration Lactated Ringer's 500 mls @ 999 mls/hr 06/15/23 16:44 06/15/23 17:11 Lactated Ringer's 1000 Ml Bag IV 06/15/23 17:14 999 mls/hr .Q31M ONE Administration Iopamidol 75 ml 06/15/23 17:01 06/15/23 17:02 Iopamidol-370 (76%);100ml Bottle IV 06/15/23 17:02 75 ml ONCE ONE Administration Ondansetron HCl 4 mg 06/15/23 15:35 06/15/23 15:40 Ondansetron 4mg/2ml Vial IV 06/15/23 15:36 4 mg ONCE ONE Administration Sodium Chloride 10 ml 06/15/23 17:01 06/15/23 17:02 Sodium Chloride 0.9% 10ml Syr (Rad Only) IV 06/15/23 17:02 10 ml ONCE ONE Administration Sodium Chloride 50 ml 06/15/23 17:01 06/15/23 17:02 0.9 % Sodium Chloride 50 Ml Vial IV 06/15/23 17:02 50 ml ONCE ONE Administration ORDERS Category Date Time Status CT abdomen pelvis w con Stat Cat Scan 06/15/23 15:[address] angio chest PE protocol Stat Cat Scan 06/15/23 15:38 Completed Complete Blood Count Auto Diff AMLAB Lab 06/16/23 06:00 Ordered Complete Blood Count Auto Diff Stat Lab 06/15/23 15:30 Completed Comprehensive Metabolic Panel AMLAB Lab 06/16/23 06:00 Ordered Comprehensive Metabolic Panel Stat Lab 06/15/23 15:30 Completed Diarrhea 6-11 Panel, Cdiff PCR Stat Lab 06/15/23 15:31 Ordered Lipase Stat Lab 06/15/23 15:30 Completed NT Pro Brain Natriuretic Pep. Stat Lab 06/15/23 15:30 Completed T4 (Thyroxine) Stat Lab 06/15/23 15:30 Completed Thyroid Stimulating Hormone Stat Lab 06/15/23 15:30 Completed Troponin I Q3H Lab 06/15/23 18:53 Completed Troponin I Q3H Lab 06/15/23 19:45 Completed Troponin I Stat Lab 06/15/23 15:30 Completed UA [Urinalysis and Microscopic] Stat Lab 06/15/23 15:40 Completed CA venous doppler LE LT Stat Y 06/15/23 15:57 Completed ECG Data Tracing #1: I reviewed this ECG and interpreted as documented below: Normal sinus rhythm with a ventricular rate of [address] changes concerning for ischemia. Normal axis and intervals. No significant changes noted from prior EKG. ECG initial impression date: 06/15/23 ECG initial impression time: 15:48 Medical Decision Narrative: In summary, this patient is a 67-year-old female presenting to the Emergency Department for evaluation of syncope in the setting of nausea, vomiting, and diarrhea. Differential diagnoses considered include but are not limited to vasovagal syncope, dehydration, electrolyte derangements, dysrhythmia, ACS, PE, colitis, diverticulitis. Ruling out the most morbid conditions drove assessment. On exam, the patient is alert and oriented and is nontoxic-appearing. Vitals are normal on cardiac telemetry, and cardiopulmonary exam is reassuring. She does have generalized abdominal tenderness with no rebound or guarding. Workup included CBC, CMP, lipase, TSH, T4, troponin, BNP, urinalysis, diarrhea panel, CT PE protocol, and CT abdomen and pelvis with IV contrast. EKG was obtained and was reassuring. Patient was given a bolus of IV fluids as well as IV Zofran for symptomatic improvement. I independently interpreted CT scan prior to the radiologist read and noted on is concerning for colitis. Please see their read for final interpretation. Labs were obtained that demonstrated no acutely concerning abnormalities at this time. On reassessment, patient had minimal improvement after administration of event as above. She complains of continued pain and nausea and states that overall she just feels generally weak and unwell. Patient had continued symptoms despite administration of Tylenol, Toradol, Bentyl, and Dilaudid. Ultimately given her continued and persistent symptoms, I had a discussion with her and she advised that she would prefer admission as far as disposition for symptomatic management of colitis and fluid resuscitation. I had an interactive discussion with the hospitalist who admitted the patient for further evaluation and management. Critical Care Critical Care Time Critical Care Time: No
[2023-06-15 15:50] LABS: Alanine Aminotransferase 23 U/L (12-78); Albumin Level 4.3 g/dl (3.5-5.0); Albumin/Globulin Ratio 1.3 (1.1-1.8); Alkaline Phosphatase 63 U/L (38-126); Anion Gap 9.1 mEq/L (5-15); Aspartate Amino Transferase 28 U/L (14-36); Bilirubin,Total 0.3 mg/dl (0.2-1.3); Blood Urea Nitrogen 12 mg/dl (7-17); Calcium 10.1 mg/dl (8.4-10.2); Carbon Dioxide 28 mmol/L (22.0-30.0); Creatinine Clearance Estimated 65 mL/min (50-200); Estimated Glomerular Filt Rate 71 ml/min (>60); GFR (African American) 86 ML/MIN (>60); Globulin 3.4 g/dL (1.3-3.2); Glucose 158 mg/dl (74-100); Lipase 43 U/L (23-300); Total Protein,Serum 7.7 g/dl (6.3-8.2)
[2023-06-15 15:50] LABS: Appearance,Urine CLEAR (Clear); Bilirubin,Urine Negative (Negative); Blood, Urine TRACE-I (Negative); Color,Urine YELLOW (Yellow); Glucose,Urine (UA) Negative (Negative); Ketones,Urine Negative (Negative); Leukocyte Esterase,Urine Negative (Negative); Nitrate,Urine Negative (Negative); Protein,Urine Negative (Negative); Specific Gravity, Urine >= 1.030 (1.005-1.030); Urobilinogen,Urine 0.2 EU/dl (0.2)
--- NOTE | 2023-06-15 15:57 | CA_ITS ---
FINAL REPORT TECHNIQUE: Color Doppler, duplex Doppler and compression sonography of the left lower extremity deep venous systems was performed. CLINICAL HISTORY: limb swelling FINDINGS: There is no evidence of deep venous thrombosis from the level of the groin to the calf. The veins are patent and compressible. IMPRESSION: No evidence of deep venous thrombosis left lower extremity. Authenticated and ERN
--- NOTE | 2023-06-15 16:18 | PC.NURSE ---
at bedside to obtain doppler
[2023-06-15 16:20] LABS: NT Pro Brain Natriuretic Pep. 129 pg/mL (0-125)
[2023-06-15 16:21] LABS: RBC,Urine Occasional #/hpf (0-3); Squamous Epithelial Cell,Urine Occasional #/hpf (0-5); WBC,Urine Occasional #/hpf (0-3)
--- NOTE | 2023-06-15 16:22 | PC.NURSE ---
rounded on pt, ultrasound in room at this time and pt does not need anything at this time.
[2023-06-15 16:23] LABS: Troponin I < 0.01 ng/ml (0.00-0.034)
[2023-06-15 16:29] LABS: T4 (Thyroxine) 8.3 ug/dl (5.53-11.0)
[2023-06-15 16:42] LABS: Thyroid Stimulating Hormone 2.76 uIU/mL (0.465-4.68)
[2023-06-15] MEDS: 0.9 % SODIUM CHLORIDE 50 ML VIAL IV (17:02)
[2023-06-15] MEDS: SODIUM CHLORIDE 0.9% 10ML SYR (RAD ONLY) 10 ML IV (17:02)
[2023-06-15] MEDS: IOPAMIDOL-370 (76%);100ML BOTTLE 75 ML IV (17:02)
[2023-06-15] MEDS: LACTATED RINGERS 1000ML 500 ML 999 ML IV (17:11)
--- NOTE | 2023-06-15 17:47 | PC.NURSE ---
pt was assisted to the bathroom
[2023-06-15] MEDS: HYDROMORPHONE 2MG/ML SYRINGE 0.25 MG IV (18:51)
[2023-06-15] MEDS: DICYCLOMINE 10MG CAPSULE 20 MG PO (18:51)
--- NOTE | 2023-06-15 19:10 | PC.NURSE ---
report given to oncoming shift.
--- NOTE | 2023-06-15 19:39 | PC.NURSE ---
RT notified of green top for vbg being in lab
[2023-06-15 19:45] LABS: Troponin I < 0.01 ng/ml (0.00-0.034)
--- NOTE | 2023-06-15 19:46 | PC.NURSE ---
House notified for admission
--- NOTE | 2023-06-15 19:48 | P.HP_ITS ---
History of Present Illness *Admission Date: 06/15/23 *Reason for visit:: syncope. Chronic diarrhea *History of present illness: This is a 67-year-old female with history of hypertension, hyperlipidemia, hypothyroidism, type 2 diabetes, anxiety, iron deficiency anemia, and GERD presenting to the emergency department for evaluation with concern for syncope. Patient reports that she went to her PCPs office today for follow-up because she had been having diarrhea chronically. She states that for several weeks now, she has been having loose, watery diarrhea that is nonbloody and nonmelanotic. She states that anything she eats passes right through her. She has a hard time maintaining a good appetite because of this and had not eaten or drink much today. She states that she is also had some low back pain, nausea, and vomiting has been going on for 3 to 4 days now. She is also had bilateral lower extremity swelling. She went to her PCPs office today, and when she reported all of the symptoms to them, she was sent to the ED for further evaluation and management. She denies any associated headaches, vision changes, chest pain, shortness of breath, or palpitations. No history of blood clots or clotting disorders. No recent surgery or immobilization. She does note that she has had some mild generalized abdominal pain that seems to migrate. It is not well localizable. She has a remote history of cholecystectomy and x 2. On medical record review, she underwent CT imaging on 06/13/2023 of her chest, abdomen, and pelvis and was found to have a lung nodule for which biopsy was recommended as well as findings concerning for enteritis versus ileus. admitted. [facility] Disclaimer: The information contained in this section may have been updated after the [facility] ient was seen, as this information can be updated by other users. Surgical History H/O left breast biopsy Hx of cholecystectomy History of Family History Sister Cancer Social History Smoking Status: Current every day smoker tobacco type: cigarettes packs per day: 1 alcohol intake: never substance use type: denies use current occupational status: retired Travel in the last 8 weeks: None household members: family and friend(s) housing: house caffeine: Yes Review of Systems Review of Systems Review of systems:: pertinent systems reviewed and negative unless documented below Meds Home Medications and Allergies Home Medications Medication Instructions Recorded Confirmed Type atenolol 25 mg tablet 25 mg PO DAILY Hypertension 10/05/17 06/15/23 History levothyroxine 50 mcg tablet 50 mcg PO DAILY Hypothyroidism 01/31/19 06/15/23 H istory rosuvastatin 20 mg tablet 20 mg PO HS Cholesterol 01/31/19 06/15/23 History omeprazole 40 mg capsule,delayed 40 mg PO BID GERD 02/01/19 06/15/23 History release potassium chloride 10 mEq 10 meq PO BID Supplement ##60 09/17/19 06/15/23 Rx capsule,extended release oxybutynin chloride 10 mg 10 mg PO DAILY #30 tabs 04/23/21 06/15/23 Rx tablet,extended release 24 hr polyethylene glycol 3350 17 17 g PO DAILY Constipation 06/11/21 06/15/23 History gram/dose oral powder alendronate 70 mg tablet 70 mg PO WEEKLY 05/17/23 06/15/23 History blood sugar diagnostic (Easy Touch #10 ea 05/17/23 06/15/23 History Test Strip) cetirizine 10 mg tablet 10 mg PO DAILY 05/17/23 06/15/23 History fluticasone propionate 50 1 spray intranasal DAILY Allergy 05/17/23 06/15/23 History mcg/actuation nasal symptoms spray,suspension indomethacin 25 mg capsule 25 mg PO TID PRN antiiflamatory 05/17/23 06/15/23 History metformin 850 mg tablet 850 mg PO HS 05/17/23 06/15/23 History sertraline 100 mg tablet 100 mg PO DAILY 05/17/23 06/15/23 History trazodone 100 mg tablet 100 mg PO HS 05/17/23 06/15/23 History albuterol sulfate 90 mcg/actuation 2 puff inhalation Q4-6H PRN copd 05/31/23 06/15/23 History aerosol inhaler budesonide-formoterol HFA 80 1 puff inhalation Q12H 05/31/23 06/15/23 History mcg-4.5 mcg/actuation aerosol inhaler ondansetron HCl 4 mg tablet 4 mg PO Q8H PRN nausea 05/31/23 06/15/23 History buspirone 5 mg tablet 5 mg PO BID #60 tabs 06/03/23 06/15/23 Rx New Prescriptions to Start Prescriptions: Allergies Allergy/AdvReac Type Severity Reaction Status Date / Time nickel Allergy Intermediate I-RASH Verified 06/15/23 14:54 silk Allergy Mild I-RASH Verified 06/15/23 14:54 cefaclor Allergy Unknown RASH/DIFF Verified 06/15/23 14:54 BREATHING ibuprofen Allergy Unknown NA-NAUSEA/V Verified 06/15/23 14:54 OMITING levofloxacin [From Levaquin] Allergy Unknown Unknown Verified 06/15/23 14:54 allergy reaction morphine Allergy Unknown BOTTOMS Verified 06/15/23 14:54 OUT UP nitrofurantoin Allergy Unknown Unknown Verified 06/15/23 14:54 [From MACROBID] allergy reaction Sulfa (Sulfonamide Allergy Unknown Unknown Verified 06/15/23 14:54 Antibiotics) allergy reaction SURGICAL STEEL Allergy Intermediate I-RASH Uncoded 06/15/23 14:54 Exam Data for Last 24 hours Vital signs and Labs for Last 24 Hours: Temp Pulse Resp BP Pulse Ox O2 Del Method 98.6 F 70 18 129/62 96 Room Air 06/15/23 15:17 06/15/23 18:35 06/15/23 18:35 06/15/23 18:35 06/15/23 18:35 06/15/23 16:41 Laboratory Results - last 24 hr 06/15/23 15:30: WBC 6.9, RBC 4.75, Hgb 12.4, Hct 39.4, MCV 82.9, MCH 26.1 L, MCHC 31.4 L, RDW 17.2, Plt Count 199, MPV 8.1, Neut % (Auto) 69.5, Lymph % (Auto) 25.9, Stone % (Auto) 3.0, Eos % (Auto) 0.8, Baso % (Auto) 0.8, Neut # (Auto) 4.8, Lymph # (Auto) 1.8, Stone # (Auto) 0.2, Eos # (Auto) 0.1, Baso # (Auto) 0.1, Sodium 139, Potassium 4.1, Chloride 106, Carbon Dioxide 28, Anion Gap 9.1, BUN 12, Creatinine 0.80, Estimated Creat Clear 65, Estimated GFR 71, Est GFR ( Amer) 86, Glucose 158 H, Calcium 10.1, Total Bilirubin 0.3, AST 28, ALT 23, Alkaline Phosphatase 63, Troponin I < 0.01, NT-Pro-B Natriuret Pep 129 H, Total Protein 7.7, Albumin 4.3, Globulin 3.4 H, Albumin/Globulin Ratio 1.3, Lipase 43, TSH 2.76, Thyroxine (T4) 8.3 06/15/23 15:40: Urine Color Yellow, Urine Appearance Clear, Urine pH 6.0, Ur Specific P[place] >= 1.030, Urine Protein Negative, Urine Glucose (UA) Negative, Urine Ketones Negative, Urine Blood Trace-i, Urine Nitrate Negative, Urine Bilirubin Negative, Urine Urobilinogen 0.2, Ur Leukocyte Esterase Negative, Urine RBC Occasional, Urine WBC Occasional, Ur Squamous Epith Cells Occasional, Urine Bacteria None 06/15/23 18:53: Troponin I < 0.01 I & O for Last 24 hours: Intake & Output 06/12/23 06/13/23 06/14/23 06/15/23 23:59 23:59 23:59 23:59 Weight 76.657 kg Constitutional Constitutional: no acute distress *Routine HEENT Exam Head: Present normocephalic Eye: Present EOMI and PERRL ENT: Present mucous membranes moist *Routine Neck Exam Neck: Present supple; Absent lymphadenopathy *Routine Respiratory Exam Respiratory: Present CTA bilaterally *Routine Cardiovascular Exam Cardiovascular: Present RRR *Routine Abdominal Exam Abdominal: Present soft and normoactive bowel sounds; Absent tenderness *Routine Rectal Exam Rectal:: deferred *Routine Genitalia Exam Genitalia:: deferred *Routine Extremities Exam Extremities: Absent cyanosis, clubbing or edema *Routine Skin Exam Skin: Present warm; Absent rash *Routine Neurological Exam Neurological: Present alert and oriented X3 H&P: Result Imaging and Cardiology EKG: Status: image reviewed by me, Preliminary report and final report CT scan - abdomen: Status: image reviewed by me, Preliminary report and final report CT scan - chest: Status: image reviewed by me, Preliminary report and final report Assessment and Plan *Assessment and plan (1) Colitis: Status: Acute Category: Medical Code(s): K52.9 - Noninfective gastroenteritis and colitis, unspecified (2) Diarrhea: Status: Acute Qualifiers: Diarrhea type: presumed infectious Qualified Code(s): R19.7 - Diarrhea, unspecified Category: Medical Code(s): R19.7 - Diarrhea, unspecified (3) General weakness: Status: Acute Category: Medical Code(s): R53.1 - Weakness (4) Lung nodule: Status: Acute Category: Medical Code(s): R91.1 - Solitary pulmonary nodule (5) Cavitary lesion of lung: Status: Acute Category: Medical Code(s): J98.4 - Other disorders of lung (6) COPD (chronic obstructive pulmonary disease): Status: Acute Qualifiers: COPD type: unspecified COPD Qualified Code(s): J44.9 - Chronic obstructive pulmonary disease, unspecified Category: Medical Code(s): J44.9 - Chronic obstructive pulmonary disease, unspecified (7) Type 2 diabetes mellitus: Status: Chronic Qualifiers: Diabetes mellitus complication status: with other specified complication 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 insulin use: unspecified customs and border protection inspector insulin use status Qualified Code(s): E11.69 - Type 2 diabetes mellitus with other specified complication Category: Medical Code(s): E11.9 - Type 2 diabetes mellitus without complications (8) Hypertension: Status: Chronic Qualifiers: Hypertension type: unspecified Qualified Code(s): I10 - Essential (primary) hypertension Category: Medical Code(s): I10 - Essential (primary) hypertension (9) Hypothyroidism: Status: Chronic Qualifiers: Hypothyroidism type: acquired Qualified Code(s): E03.9 - Hypothyroidism, unspecified Category: Medical Code(s): E03.9 - Hypothyroidism, unspecified (10) Tobacco abuse: Status: Chronic Category: Medical Code(s): Z72.0 - Tobacco use Plan 67-year-old female with history of hypertension, hyperlipidemia, hypothyroidism, type 2 diabetes, anxiety, iron deficiency anemia, and GERD presenting to the emergency department for evaluation with concern for syncope. Patient reports that she went to her PCPs office today for follow-up because she had been having diarrhea chronically. initial workup included CBC, CMP, lipase, TSH, T4, troponin, BNP, urinalysis, diarrhea panel, CT PE protocol, and CT abdomen and pelvis with IV contrast. EKG was obtained and was reassuring. Patient was given a bolus of IV fluids as well as IV Zofran for symptomatic improvement. CT of abdomen shows concern for colitis. Labs were obtained that demonstrated no acutely concerning abnormalities at this time Intractable nausea, vomit and diarrhea likely secondary to enterocolitis: to rule out infective vs food induced: Distal esophagitis and gatritis Admit patient for medical services. Dispo med-surg. f/u with outpatient GI for further work up. including but not limited to non emergent endoscopy and colonoscopy start protonix zofran IV for nauseas. IVF Ns @100ml Diarrhea panel ordered. Pending on protonix bentyl 10mg TID for pain/colic management started Flagyl 500mg IV q8h IV hydration advance diet as tolerated -Cavitary lung lession and nodule: Asymptomatic, on RA Lesion enlarged from previous study. suspected malignancy. discussion made with radiology recommended non emergent bronchoscopy. F/u outpatient wit pulmonology for further management -COPD: not on exacerbation. resume home nebulizewre -NIDDM: accucheck before meals sliding scale HTN, Hypothyroidism, depression and anxiety: reconciled home meds Tobacco abuse: On nicotine patch Lovenox for DVT ppx. oN protonix Full code
--- NOTE | 2023-06-15 19:58 | PC.NURSE ---
Report called to DEAN Juan. Transport taking patient to floor.
--- NOTE | 2023-06-15 20:03 | PC.NURSE ---
1999 RECEIVED PHONE REPORT FROM RACHEL RN/ED NURSE. ADMISSION IS A 67 YO FEMALE WITH INTRACTABLE NAUSEA AND BACK PAIN. NUMEROUS ALLERGIES. MAY TRANSPORT BY W/C.
[2023-06-15] MEDS: 0.9 % SODIUM CHLORIDE 1000ML 1,000 ML 75 ML IV (21:30)
[2023-06-15] MEDS: PANTOPRAZOLE 40MG VIAL 40 MG IV (21:31)
[2023-06-15] MEDS: ENOXAPARIN 40MG/0.4ML SYRINGE 40 MG SQ (21:31)
[2023-06-15 22:25] LABS: Troponin I < 0.01 ng/ml (0.00-0.034)
[2023-06-15 22:45] LABS: POC Glucose,Bedside 118 (70-110)
[2023-06-15] MEDS: METRONIDAZ/SOD CHL 500 MG/100 ML PIGGYBACK 100 MG IV (22:55)
[2023-06-15 23:52] LABS: Adenovirus F 40/41, stool Not Detected (NotDetected); Astrovirus Not Detected (NotDetected); Campylobacter Not Detected (NotDetected); Clostridium Difficile A/B, PCR Not Detected (NotDetected); Cryptosporidium Not Detected (NotDetected); Cyclospora Cayetanesis Not Detected (NotDetected); Entamoeba histolytica Not Detected (NotDetected); Enteroaggregative E coli Not Detected (NotDetected); Enteropathogenic E coli Not Detected (NotDetected); Enterotoxigenic E coli Not Detected (NotDetected); Giardia lamblia Not Detected (NotDetected); Norovirus Not Detected (NotDetected); Plesimonas Shigalloides, PCR Not Detected (NotDetected); Rotavirus A Not Detected (NotDetected); Salmonella, PCR Not Detected (NotDetected); Sapovirus Not Detected (NotDetected); Shiga-like toxin E coli Not Detected (NotDetected); Shigella Enterovasive E coli Not Detected (NotDetected); Vibrio Cholerae Not Detected (NotDetected); Vibrio, PCR Not Detected (NotDetected); Yersinia Entercolitica, PCR Not Detected (NotDetected)
[2023-06-16] MEDS: ACETAMINOPHEN 325MG TAB 650 MG PO ×2 (00:18→17:43)
[2023-06-16 04:00] VITALS: BP 99/53; PULSE 58; RESP 17; TEMP 37.2; O2SAT 93; BMI 31.7
[2023-06-16] MEDS: METRONIDAZ/SOD CHL 500 MG/100 ML PIGGYBACK 100 MG IV (04:29)
[2023-06-16 05:01] LABS: POC Glucose,Bedside 109 (70-110)
--- NOTE | 2023-06-16 05:35 | PC.NURSE ---
PATIENT SAID SHE DID NOT SLEEP WELL. APPEARED TO BE ASLEEP UNTIL 4 PM, HAS HAD NO REPORT OF N/V/D THIS SHIFT. STOOL SPECIMEN WAS SENT TO LAB EARLY IN THIS SHIFT. C/O RIGHT SHOULDER PAIN AND RECEIVED TYLENOL 650MG PO WHICH WAS EFFECTIVE.
[2023-06-16 06:20] LABS: Chloride 109 mmol/L (98-107)
[2023-06-16 06:21] LABS: Potassium 3.5 mmoL/L (3.5-5.1); Sodium 136 mmol/L (136-145)
[2023-06-16 06:23] LABS: Alanine Aminotransferase 13 U/L (12-78); Alkaline Phosphatase 58 U/L (38-126); Anion Gap 5.5 mEq/L (5-15); Aspartate Amino Transferase 21 U/L (14-36); Bilirubin,Total 0.3 mg/dl (0.2-1.3); Blood Urea Nitrogen 10 mg/dl (7-17); Carbon Dioxide 25 mmol/L (22.0-30.0); Creatinine Clearance Estimated 66 mL/min (50-200); Estimated Glomerular Filt Rate 83 ml/min (>60); GFR (African American) 101 ML/MIN (>60)
[2023-06-16 06:24] LABS: Albumin Level 3.3 g/dl (3.5-5.0); Albumin/Globulin Ratio 1.2 (1.1-1.8); Calcium 8.9 mg/dl (8.4-10.2); Globulin 2.8 g/dL (1.3-3.2); Glucose 106 mg/dl (74-100); Total Protein,Serum 6.1 g/dl (6.3-8.2)
[2023-06-16 06:28] LABS: Basophils # 0.1 K/mm3 (0-0.2); Hematocrit 33.7 % (37.0-47.0); Monocytes # 0.2 K/mm3 (0.1-1.0)
[2023-06-16 06:39] LABS: Basophils % 1.2 % (0.1-2.0); Eosinophils % 0.5 % (0.1-12.0); Lymphocytes # 2.1 K/mm3 (0.7-4.5); Lymphocytes % 43.3 % (10-50); Mean Corpuscular HGB Conc 31.8 g/dL (31.8-35.4); Mean Corpuscular Hemoglobin 26.1 pg (27.0-31.2); Mean Corpuscular Volume 82.3 fl (81-99); Mean Platelet Volume 8.4 fl (7.4-10.4); Monocytes % 4.1 % (1.7-9.3); Neutrophils # 2.5 K/mm3 (1.8-7.8); Neutrophils % 50.9 % (37.0-80.0); Platelet Count 180 K/mm3 (142-424); Red Cell Distribution Width 17.3 % (11.5-17.5); White Blood Count 4.9 K/mm3 (4.8-10.8)
[2023-06-16 06:44] LABS: Hemoglobin 10.7 g/dL (12.2-16.2)
--- NOTE | 2023-06-16 07:30 | HMH.PTEV ---
Physical Therapy Evaluation Rehab PT IP Evaluation Start: 06/15/23 19:48 Freq: ONCE Status: Active Protocol: Document 06/16/23 07:07 TRI (Rec: 06/16/23 07:28 TRI [id number]) Subjective/History History History Per H&P: This is a 67-year-old female with history of hypertension, hyperlipidemia, hypothyroidism , type 2 diabetes, anxiety, iron deficiency anemia, and GERD presenting to the emergency department for evaluation with concern for syncope. Patient reports that she went to her PCPs office today for follow-up because she had been having diarrhea chronically..... Subjective Subjective PLOF Per pt report: Lives with her son and his . There are 4-5 steps to enter home ( with Hand rails). Prior to admission, pt had some trouble with walking d/t balance deficits. Pt required help at times with stair negotiation. Family member is usually present at home during the day . Pt owns a standard walker but mostly uses a SBQC to ambulate. Pt was not driving prior to hospitalization. Denying falls in past 30 days. Feeling a little better. New diagnosis of cancer in past 12 No months? Rehab PT IP Eval Objective Appearance Patient Behavior Appropriate,Cooperative Patient Orientation Person,Situation Difficulty following instructions none Speech Pattern Clear Ambulation Patient Able to Ambulate Yes Ambulation Observation IP General Gait Pattern Observation Wide Based Gait Ambulation Distance (feet) 15 Ambulation Assistive Device Small Base Quad Cane Ambulation Ability Minimal x 1 (25% assist) Balance Ability to Arise Able, uses arms to help Sitting Balance Steady, safe Standing Balance Steady, wide stance Transfers Bed Transfer Ability Supervision/Stand by Sit to Stand Bed Transfer Ability Contact Guard/Hand Hold Rehab PT IP prob,goals,plan Problems Date of Evaluation: 06/16/23 PT IP Problems Bed Mobility,Transfers,Gait, Balance,Safety Rehab Potential Rehab Potential Good Equipment Needs Assistive Devices Rolling / Wheeled Walker Plan PT Intervention Plan Transfers,Gait,Balance,Safety, Therapeutic Exercise Other Intervention Plan 1-2 times PT Plan Frequency Daily Duration LOS Discharge Goals Bed Transfer Ability Independent Sit to Stand Chair Transfer Ability Supervision/Stand by Ambulation Assistive Device Rolling Walker Ambulation Distance (feet) 30 Discharge Plan PT Discharge Plan Initial physical therapy evaluation performed. Pt demonstrated ability to ambulate with Min A (d/t one LOB laterally). PT recommending pt use RW d/t balance deficits to improve safety and independence. Patient presents below baseline at this time in functional mobility, gait, and strength. Pt would benefit from skilled PT while at [facility] to prevent further functional decline and maximize safety with mobility. Pt safe to d/c home when deemed medically necessary d/t current level of mobility, home set-up, and family support. PT recommending home health PT services to address deficits and maximize safety. Eval Complexity Eval Charge Codes 39784 - Moderate Complexity PHYSICIAN CERTIFICATION: I certify the specified therapy services for Maricel Jump are required, authorized, and reviewed every 30 days.
--- NOTE | 2023-06-16 07:57 | HMH.PHAINT1 ---
Pharmacy Intervention Comments: HOME MEDICATION LIST VERIFIED VIA CLINIC PHARMACY
[2023-06-16 08:00] VITALS: BP 115/71; PULSE 64; RESP 19; TEMP 37.2; O2SAT 92
[2023-06-16] MEDS: ENOXAPARIN 40MG/0.4ML SYRINGE 40 MG SQ (08:58)
[2023-06-16] MEDS: DICYCLOMINE 10MG CAPSULE 10 MG PO ×3 (08:59→20:24)
[2023-06-16] MEDS: LEVOTHYROXINE 50MCG (0.05MG) TAB 50 MCG PO (08:59)
[2023-06-16] MEDS: BUSPIRONE HCL 5 MG TABLET PO ×2 (08:59→20:24)
[2023-06-16] MEDS: LORATADINE 10MG TABLET 10 MG PO (08:59)
[2023-06-16] MEDS: ATENOLOL 25MG TABLET 25 MG PO (08:59)
[2023-06-16] MEDS: SERTRALINE 100MG TABLET 100 MG PO (08:59)
[2023-06-16] MEDS: FLUTICASONE PROP 50MCG NASAL SPRAY 16GM 1 SPRAY NS (09:00)
[2023-06-16] MEDS: 0.9 % SODIUM CHLORIDE 1000ML 1,000 ML 75 ML IV ×2 (09:07→18:12)
--- NOTE | 2023-06-16 09:38 | HMH.OTEV ---
OT Inpatient Evaluation Rehab OT IP Evaluation Start: 06/15/23 19:48 Freq: ONCE Status: Active Protocol: Document 06/16/23 09:31 SRIKANTH (Rec: 06/16/23 09:37 [id number] Rehab OT IP Assessment Subjective History Pt oriented x 3 on arrival. Pt agreeable to engage in therapy evaluation. Pt admitted on 06/15/23 for syncope episode and chronic diarrhea. History and Physical report: This is a 67-year-old female with history of hypertension, hyperlipidemia, hypothyroidism , type 2 diabetes, anxiety, iron deficiency anemia, and GERD presenting to the emergency department for evaluation with concern for syncope. Patient reports that she went to her PCPs office today for follow-up because she had been having diarrhea chronically. She states that for several weeks now, she has been having loose, watery diarrhea that is nonbloody and nonmelanotic. She states that anything she eats passes right through her. She has a hard time maintaining a good appetite because of this and had not eaten or drink much today. She states that she is also had some low back pain, nausea, and vomiting has been going on for 3 to 4 days now. She is also had bilateral lower extremity swelling. She went to her PCPs office today , and when she reported all of the symptoms to them, she was sent to the ED for further evaluation and management. She denies any associated headaches, vision changes, chest pain, shortness of breath, or palpitations. No history of blood clots or clotting disorders. No recent surgery or immobilization. She does note that she has had some mild generalized abdominal pain that seems to migrate. It is not well localizable. She has a remote history of cholecystectomy and x 2. On medical record review, she underwent CT imaging on 06/13/2023 of her chest, abdomen, and pelvis and was found to have a lung nodule for which biopsy was recommended as well as findings concerning for enteritis versus ileus. admitted. Subjective I am doing a little better today. PLOF Per pt report: Lives with her son and his . There are 4-5 steps to enter home ( with Hand rails). Prior to admission, pt had some trouble with walking d/t balance deficits. Pt required help at times with stair negotiation. Family member is usually present at home during the day . Pt owns a standard walker but mostly uses a SBQC to ambulate. Pt claims she was normally independent with all ADLs, but did require assistance getting in and out of shower for safety. Pt does have a shower chair that she uses during showers. Pt also reports she assists with some IADLs, but usually family completes most of the cleaning , cooking, laundry, etc. Pt was not driving prior to hospitalization. Denying falls in past 30 days. Objective Patient Orientation Person,Place,Birthday Right Upper Extremity Gross ROM WFL Left Upper Extremity Gross ROM WFL Bed Mobility bed mobility-scooting,bed mobility - supine/sit Assist Level Contact Guard/Hand Hold Transfer Training Sit/Stand Transfer Assist Level Minimal x 1 (25% assist) Rehab OT IP prob,goals,plan Problems Date of Evaluation: 06/16/23 OT IP Problems Bed Mobility,Transfers,Balance ,Self care,Safety Rehab Potential Rehab Potential Good Equipment Needs Assistive Devices Rolling / Wheeled Walker Plan OT intervention Plan Bed Mobility,Transfers,Balance ,Self care,Safety,Therapeutic Exercise OT Plan Frequency Daily Duration LOS Discharge Goals Bed Mobility Ability Standby Assistance Sit to Stand Chair Transfer Ability Contact Guard/Hand Hold Chair Transfer Ability Contact Guard/Hand Hold Chair Transfer Technique Sit to/from Ambulatory Chair Transfer Assistive Devices Rolling Walker Feeding Ability Assist with Tray Set Up Lower Body Dressing Ability Minimal Assistance Upper Body Dressing Ability Standby Assistance Bathing Ability Minimal Assistance Performing Toilet Hygiene Ability Minimal Assistance Overall Commode/Toilet Transfer Ability Contact Guard Commode/Toilet Transfer Technique Sit to/from Ambulatory Commode/Toilet Transfer Assistive Grab Bars Devices Oral Care Assist Standby Assistance Decrease in Endurance Yes Discharge Plan OT Discharge Plan Pt will continue to be seen for OT services while at [facility]. Pt can return home with family assistance once she is medically stable per physician . Therapist recommends OT evaluation upon returning home for continued skilled therapy . Eval Complexity Eval Charge Codes 43876 - Moderate Complexity PHYSICIAN CERTIFICATION: I certify the specified therapy services for Maricel Jump are required, authorized, and reviewed every 30 days.
--- NOTE | 2023-06-16 09:55 | EXP.PULM.CON ---
History of Present Illness History of present illness: Ms. Dominguez is a 67-year-old female with history hypertension dyslipidemia hypothyroidism type 2 diabetes mellitus iron deficiency anemia and gastroesophageal reflux disease presented to the ER for possible evaluation of syncope. Patient other complaints upon presentation reported to include abdominal discomfort, chronic diarrhea loss of appetite low back pain nausea and vomiting along with bilateral lower extremity swelling. Pulmonary was called for the noted abnormal CT imaging that showed left upper lobe cavitary lesion [facility] Disclaimer: The information contained in this section may have been updated after the patient was seen, as this information can be updated by other users. Medical History (Updated 06/16/23 @ 12:16 by Donavan Doll MD) History of COPD Pneumonia with cavity of lung Surgical History H/O left breast biopsy Hx of cholecystectomy History of Family History Sister Cancer Social History Smoking Status: Current every day smoker tobacco type: cigarettes packs per day: 1 alcohol intake: never substance use type: denies use current occupational status: retired Travel in the last 8 weeks: None household members: family and friend(s) housing: house caffeine: Yes Review of Systems Constitutional Constitutional: Denies anorexia and Denies body ache(s) Eyes Eyes: Denies eye discharge, Denies dry eyes, Denies irritation and Denies itchy eyes ENT Ears, Nose, Mouth, and Throat: Denies epistaxis, Denies facial pain, Denies lip swelling and Denies throat swelling *Cardiovascular Cardiovascular: Reports dyspnea and Reports dyspnea on exertion *Respiratory Respiratory: Reports chest congestion, Reports cough, Reports dyspnea, Reports dyspnea on exertion, Reports excessive phlegm production and Reports wheezing *Gastrointestinal Gastrointestinal: Denies abdominal pain, Denies belching, Reports change in stool character, Denies cramping, Reports nausea and Reports vomiting Psychiatric Psychiatric: Denies homicidal ideation and Denies suicidal ideation Endocrine Endocrine: Denies heat intolerance Hematologic/Lymphatic Hematologic/Lymphatic: Denies easy bleeding and Denies lymphadenopathy Allergic/Immunologic Allergic/Immunologic: Denies itchy eyes, Denies lip swelling, Denies throat swelling and Reports wheezing Pulmonology Exam Inpatient Vital signs and Labs for Last 24 Hours: Temp Pulse Resp BP Pulse Ox O2 Del Method 98.9 F 64 19 115/71 92 L Room Air 06/16/23 08:00 06/16/23 08:00 06/16/23 08:00 06/16/23 08:00 06/16/23 08:00 06/16/23 08:52 Laboratory Results - last 24 hr 06/15/23 15:30: WBC 6.9, RBC 4.75, Hgb 12.4, Hct 39.4, MCV 82.9, MCH 26.1 L, MCHC 31.4 L, RDW 17.2, Plt Count 199, MPV 8.1, Neut % (Auto) 69.5, Lymph % (Auto) 25.9, [place] % (Auto) 3.0, Eos % (Auto) 0.8, Baso % (Auto) 0.8, Neut # (Auto) 4.8, Lymph # (Auto) 1.8, [place] # (Auto) 0.2, Eos # (Auto) 0.1, Baso # (Auto) 0.1, Sodium 139, Potassium 4.1, Chloride 106, Carbon Dioxide 28, Anion Gap 9.1, BUN 12, Creatinine 0.80, Estimated Creat Clear 65, Estimated GFR 71, Est GFR ( Amer) 86, Glucose 158 H, Calcium 10.1, Total Bilirubin 0.3, AST 28, ALT 23, Alkaline Phosphatase 63, Troponin I < 0.01, NT-Pro-B Natriuret Pep 129 H, Total Protein 7.7, Albumin 4.3, Globulin 3.4 H, Albumin/Globulin Ratio 1.3, Lipase 43, TSH 2.76, Thyroxine (T4) 8.3 06/15/23 15:40: Urine Color Yellow, Urine Appearance Clear, Urine pH 6.0, Ur Specific [place] >= 1.030, Urine Protein Negative, Urine Glucose (UA) Negative, Urine Ketones Negative, Urine Blood Trace-i, Urine Nitrate Negative, Urine Bilirubin Negative, Urine Urobilinogen 0.2, Ur Leukocyte Esterase Negative, Urine RBC Occasional, Urine WBC Occasional, Ur Squamous Epith Cells Occasional, Urine Bacteria None 06/15/23 18:53: Troponin I < 0.01 06/15/23 19:45: Troponin I < 0.01 06/15/23 22:37: POC Glucose 118 H 06/16/23 04:54: POC Glucose 109 06/16/23 05:46: WBC 4.9 D, RBC 4.10 L, Hgb 10.7 L D, Hct 33.7 L, MCV 82.3, MCH 26.1 L, MCHC 31.8, RDW 17.3, Plt Count 180, MPV 8.4, Neut % (Auto) 50.9, Lymph % (Auto) 43.3, [place] % (Auto) 4.1, Eos % (Auto) 0.5, Baso % (Auto) 1.2, Neut # (Auto) 2.5, Lymph # (Auto) 2.1, [place] # (Auto) 0.2, Eos # (Auto) 0.0, Baso # (Auto) 0.1, Sodium 136, Potassium 3.5, Chloride 109 H, Carbon Dioxide 25, Anion Gap 5.5, BUN 10, Creatinine 0.70, Estimated Creat Clear 66, Estimated GFR 83, Est GFR ( Amer) 101, Glucose 106 H D, Calcium 8.9, Total Bilirubin 0.3, AST 21, ALT 13 D, Alkaline Phosphatase 58, Total Protein 6.1 L, Albumin 3.3 L D, Globulin 2.8, Albumin/Globulin Ratio 1.2 I & O for Labs for Last 24 Hours: Intake & Output 06/13/23 06/14/23 06/15/23 06/16/23 23:59 23:59 23:59 23:59 Intake Total 508 / 508 Output Total 0 / 0 0 / 0 Balance 0 / 508 508 / 508 Weight 172 lb 6.4 oz 172 lb 6.4 oz Constitutional: Present moderate distress Head: Present normocephalic and atraumatic ENT: Present normal exam, normal oropharynx and mucous membranes moist Neck: Present normal inspection and full ROM Respiratory: Present able to speak in complete sentences; Absent respiratory distress, wheezes or crackles Cardiac: Present S1/S2, Tachycardia and radial pulses present GI: Present soft and distention; Absent tenderness or guarding Rectal (female): Present deferred (female): Present deferred Skin: Present intact; Absent cyanosis or jaundice Neuro: Present alert, awake and oriented x 3 Extremities: Present normal inspection; Absent clubbing or cyanosis Psychiatric: Present normal affect and cooperative Meds Home Medications and Allergies Home Medications Medication Instructions Recorded Confirmed Type atenolol 25 mg tablet 25 mg PO DAILY Hypertension 10/05/17 06/15/23 History levothyroxine 50 mcg tablet 50 mcg PO DAILY Hypothyroidism 01/31/19 06/15/23 History rosuvastatin 20 mg tablet 20 mg PO HS Cholesterol 01/31/19 06/15/23 History omeprazole 40 mg capsule,delayed 40 mg PO BID GERD 02/01/19 06/15/23 History release potassium chloride 10 mEq 10 meq PO BID Supplement ##60 09/17/19 06/15/23 Rx capsule,extended release oxybutynin chloride 10 mg 10 mg PO DAILY #30 tabs 04/23/21 06/15/23 Rx tablet,extended release 24 hr polyethylene glycol 3350 17 17 g PO DAILY Constipation 06/11/21 06/15/23 History gram/dose oral powder alendronate 70 mg tablet 70 mg PO WEEKLY 05/17/23 06/15/23 History blood sugar diagnostic (Easy Touch #10 ea 05/17/23 06/15/23 History Test Strip) cetirizine 10 mg tablet 10 mg PO DAILY 05/17/23 06/15/23 History fluticasone propionate 50 1 spray intranasal DAILY Allergy 05/17/23 06/15/23 History mcg/actuation nasal symptoms spray,suspension indomethacin 25 mg capsule 25 mg PO TID PRN Pain 05/17/23 06/15/23 History metformin 850 mg tablet 850 mg PO HS 05/17/23 06/15/23 History sertraline 100 mg tablet 100 mg PO DAILY 05/17/23 06/15/23 History trazodone 100 mg tablet 100 mg PO HS 05/17/23 06/15/23 History albuterol sulfate 90 mcg/actuation 2 puff inhalation Q4-6H PRN copd 05/31/23 06/15/23 History aerosol inhaler budesonide-formoterol HFA 80 1 puff inhalation Q12H 05/31/23 06/15/23 History mcg-4.5 mcg/actuation aerosol inhaler ondansetron HCl 4 mg tablet 4 mg PO Q8H PRN nausea 05/31/23 06/15/23 History buspirone 5 mg tablet 5 mg PO BID #60 tabs 06/03/23 06/15/23 Rx cholecalciferol (vitamin D3) 1,250 1,250 mcg PO WEEKLY 06/16/23 06/16/23 History mcg (50,000 unit) capsule New Prescriptions to Start Prescriptions: Allergies Allergy/AdvReac Type Severity Reaction Status Date / Time nickel Allergy Intermediate I-RASH Verified 06/15/23 14:54 silk Allergy Mild I-RASH Verified 06/15/23 14:54 cefaclor Allergy Unknown RASH/DIFF Verified 06/15/23 14:54 BREATHING ibuprofen Allergy Unknown NA-NAUSEA/V Verified 06/15/23 14:54 OMITING levofloxacin [From Levaquin] Allergy Unknown Unknown Verified 06/15/23 14:54 allergy reaction morphine Allergy Unknown BOTTOMS Verified 06/15/23 14:54 OUT UP nitrofurantoin Allergy Unknown Unknown Verified 06/15/23 14:54 [From MACROBID] allergy reaction Sulfa (Sulfonamide Allergy Unknown Unknown Verified 06/15/23 14:54 Antibiotics) allergy reaction Results Laboratory Findings 06/16/23 05:46 06/16/23 05:46 Abnormal lab findings: Abnormal Labs 06/15/23 06/15/23 06/16/23 15:30 22:37 05:46 RBC 4.10 L Hgb 10.7 L D Hct 33.7 L MCH 26.1 L 26.1 L MCHC 31.4 L Chloride 109 H Glucose 158 H 106 H D POC Glucose 118 H NT-Pro-B Natriuret Pep 129 H Total Protein 6.1 L Albumin 3.3 L D Globulin 3.4 H Assessment and Plan *Assessment and plan (1) Pneumonia with cavity of lung: Status: Acute Category: Medical Code(s): J18.9 - Pneumonia, unspecified organism; J98.4 - Other disorders of lung (2) History of COPD: Status: Acute Category: Medical Code(s): Z87.09 - Personal history of other diseases of the respiratory system Plan Ms. Dominguez is a 67-year-old female with history hypertension dyslipidemia hypothyroidism type 2 diabetes mellitus iron deficiency anemia and gastroesophageal reflux disease presented to the ER for possible evaluation of syncope. Patient other complaints upon presentation reported to include abdominal discomfort, chronic diarrhea loss of appetite low back pain nausea and vomiting along with bilateral lower extremity swelling. Pulmonary was called for the noted abnormal CT imaging that showed left upper lobe cavitary lesion Low-dose CT July 2022 the left upper lobe nodular lesion which has evolved into a cavitary lesion with thin solis on her CT from May 2023. This nodule / cavitary lesions was not present on her CT from 2021. Patient today denies any worsening respiratory distress. On room air at baseline. COPD at baseline stable with no frequent exacerbations. Denies any worsening cough or productive phlegm. Plan: Continue home inhaler therapy along with DuoNebs every 6 hours on as-needed basis Follow the infectious workup including serum fungal serologies, sputum AFB fungal stain cultures, bacterial stain cultures and TB QuantiFERON If the infectious workup is unyielding will consider bronchoscopy as an outpatient basis. Thank you for involving pulmonary in this patient care. Will continue to follow.
--- NOTE | 2023-06-16 09:56 | SW/DCPLANNER ---
Addendum entered by Celi Russell 06/17/23 09:23: Patient stated that she is not interested in home health services at this time. Patient has requested a rolling walker from [facility] once medically stable for discharge: CM will arrange DME. Patient may discharge home later today. Original Note: I spoke w/ this patient regarding plans once medically stable for discharge. Patient resides at home w/ her son and daughter in law. PT/OT evaluated patient this AM and recommended patient returning home w/ home health services. I did speak w/ patient this AM regarding home health: she is agreeable but would need permission from her son first before proceeding w/ services. Patient will need a rolling walker and is agreeable to use [facility] for DME. I will continue to follow up w/ this patient. I did offer to call and speak w/ patient's family regarding home health and she request to speak w/ her son first.
[2023-06-16] MEDS: PIPERACILLIN/TAZO 3.375 GM in 0.9 % SODIUM CHLORIDE 50 ML IV ×3 (11:07→22:04)
[2023-06-16 11:23] LABS: POC Glucose,Bedside 112 (70-110)
[2023-06-16 11:25] VITALS: BP 114/57; RESP 17; TEMP 37.1; O2SAT 94
[2023-06-16 11:46] LABS: C-Reactive Protein 0.7 mg/L (0-4)
[2023-06-16] MEDS: BUDESONIDE FORMOTEROL 1 EACH IH (12:44)
[2023-06-16 15:14] VITALS: BP 127/61; PULSE 60; RESP 19; O2SAT 94
--- NOTE | 2023-06-16 16:03 | P.PN_ITS ---
Subjective *Date: 06/16/23 *Time: 16:03 Interval history: patient is seen at bedside, denied CP, SOB, N/V Exam Data for Last 24 hours Vital signs and Labs for Last 24 Hours: Temp Pulse Resp BP Pulse Ox O2 Del Method 98.8 F 60 19 127/61 94 L Room Air 06/16/23 11:25 06/16/23 15:14 06/16/23 15:14 06/16/23 15:14 06/16/23 15:14 06/16/23 15:14 Laboratory Results - last 24 hr 06/15/23 15:30: Troponin I < 0.01, NT-Pro-B Natriuret Pep 129 H, TSH 2.76, Thyroxine (T4) 8.3 06/15/23 15:40: Urine RBC Occasional, Urine WBC Occasional, Ur Squamous Epith Cells Occasional, Urine Bacteria None 06/15/23 18:53: Troponin I < 0.01 06/15/23 19:45: Troponin I < 0.01 06/15/23 22:37: POC Glucose 118 H 06/16/23 04:54: POC Glucose 109 06/16/23 05:46: WBC 4.9 D, RBC 4.10 L, Hgb 10.7 L D, Hct 33.7 L, MCV 82.3, MCH 26.1 L, MCHC 31.8, RDW 17.3, Plt Count 180, MPV 8.4, Neut % (Auto) 50.9, Lymph % (Auto) 43.3, [place] % (Auto) 4.1, Eos % (Auto) 0.5, Baso % (Auto) 1.2, Neut # (Auto) 2.5, Lymph # (Auto) 2.1, [place] # (Auto) 0.2, Eos # (Auto) 0.0, Baso # (Auto) 0.1, Sodium 136, Potassium 3.5, Chloride 109 H, Carbon Dioxide 25, Anion Gap 5.5, BUN 10, Creatinine 0.70, Estimated Creat Clear 66, Estimated GFR 83, Est GFR ( Amer) 101, Glucose 106 H D, Calcium 8.9, Total Bilirubin 0.3, AST 21, ALT 13 D, Alkaline Phosphatase 58, C-Reactive Protein 0.7, Total Protein 6.1 L, Albumin 3.3 L D, Globulin 2.8, Albumin/Globulin Ratio 1.2 06/16/23 11:06: POC Glucose 112 H I & O for Last 24 hours: Intake & Output 06/13/23 06/14/23 06/15/23 06/16/23 23:59 23:59 23:59 23:59 Intake Total 978 / 978 Output Total 0 / 0 200 / 200 Balance 0 / 508 778 / 778 Weight 78.199 kg 78.199 kg Microbiology Reports for the Last 24 Hours: Microbiology 06/16/23 Unknown Sputum - Expectorated Sputum MARKIE Preparation - Final Constitutional Constitutional: no acute distress *Routine HEENT Exam Head: Present normocephalic Eye: Present EOMI and PERRL ENT: Present mucous membranes moist *Routine Neck Exam Neck: Present supple; Absent lymphadenopathy *Routine Respiratory Exam Respiratory: Present CTA bilaterally *Routine Cardiovascular Exam Cardiovascular: Present RRR *Routine Abdominal Exam Abdominal: Present soft and normoactive bowel sounds; Absent tenderness *Routine Extremities Exam Extremities: Absent cyanosis, clubbing or edema *Routine Skin Exam Skin: Present warm; Absent rash *Routine Neurological Exam Neurological: Present alert and oriented X3 Assessment and Plan *Assessment and plan (1) Colitis: Status: Acute Category: Medical Code(s): K52.9 - Noninfective gastroenteritis and colitis, unspecified (2) Diarrhea: Status: Acute Qualifiers: Diarrhea type: presumed infectious Qualified Code(s): R19.7 - Diarrhea, unspecified Category: Medical Code(s): R19.7 - Diarrhea, unspecified (3) General weakness: Status: Acute Category: Medical Code(s): R53.1 - Weakness (4) Lung nodule: Status: Acute Category: Medical Code(s): R91.1 - Solitary pulmonary nodule (5) Cavitary lesion of lung: Status: Acute Category: Medical Code(s): J98.4 - Other disorders of lung (6) COPD (chronic obstructive pulmonary disease): Status: Acute Qualifiers: COPD type: unspecified COPD Qualified Code(s): J44.9 - Chronic obstructive pulmonary disease, unspecified Category: Medical Code(s): J44.9 - Chronic obstructive pulmonary disease, unspecified (7) Type 2 diabetes mellitus: Status: Chronic Qualifiers: 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 use status Diabetes mellitus complication status: with other specified complication Qualified Code(s): E11.69 - Type 2 diabetes mellitus with other specified complication Category: Medical Code(s): E11.9 - Type 2 diabetes mellitus without complications (8) Hypertension: Status: Chronic Qualifiers: Hypertension type: unspecified Qualified Code(s): I10 - Essential (primary) hypertension Category: Medical Code(s): I10 - Essential (primary) hypertension (9) Hypothyroidism: Status: Chronic Qualifiers: Hypothyroidism type: acquired Qualified Code(s): E03.9 - Hypothyroidism, unspecified Category: Medical Code(s): E03.9 - Hypothyroidism, unspecified (10) Tobacco abuse: Status: Chronic Category: Medical Code(s): Z72.0 - Tobacco use Plan 67-year-old female with history of hypertension, hyperlipidemia, hypothyroidism, type 2 diabetes, anxiety, iron deficiency anemia, and GERD presenting to the emergency department for evaluation with concern for syncope. Patient reports that she went to her PCPs office today for follow-up because she had been having diarrhea chronically. initial workup included CBC, CMP, lipase, TSH, T4, troponin, BNP, urinalysis, diarrhea panel, CT PE protocol, and CT abdomen and pelvis with IV contrast. EKG was obtained and was reassuring. Patient was given a bolus of IV fluids as well as IV Zofran for symptomatic improvement. CT of abdomen shows concern for colitis. Labs were obtained that demonstrated no acutely concerning abnormalities at this time Intractable nausea, vomit and diarrhea likely secondary to enterocolitis: to rule out infective vs food induced: Distal esophagitis and gatritis start protonix zofran IV for nauseas. IVF Ns @100ml Diarrhea panel ordered. Pending on protonix bentyl 10mg TID for pain/colic management started Flagyl 500mg IV q8h IV hydration advance diet as tolerated -Cavitary lung lession and nodule: Asymptomatic, on RA recommended non emergent bronchoscopy. F/u outpatient wit pulmonology for further management -COPD: not on exacerbation. resume home nebulizewre -NIDDM: accucheck before meals sliding scale HTN, Hypothyroidism, depression and anxiety: reconciled home meds Tobacco abuse: On nicotine patch Lovenox for DVT ppx. oN protonix Full code continue Protonix, likely dc 1-2 days, f/u on antifungal serology labs
[2023-06-16 17:41] LABS: POC Glucose,Bedside 167 (70-110)
[2023-06-16] MEDS: humaLOG 100 UNITS/ML 3ML VIAL (SSI) SQ ×2 (17:43→20:24)
--- NOTE | 2023-06-16 18:38 | PC.NURSE ---
pt sat up to the chair today, pt is tolerating bland diet, pt has had 2 liquid stools on my shift. New IV started in right wrist, NS going at 75ml/hr. Pt got tylenol for shoulder pain. No complaints of N/V during my shift.
[2023-06-16 19:45] VITALS: O2SAT 93
[2023-06-16 20:00] VITALS: BP 97/62; PULSE 63; RESP 18; TEMP 37.3; O2SAT 93
[2023-06-16] MEDS: ATORVASTATIN 40MG TABLET 40 MG PO (20:24)
[2023-06-16] MEDS: TRAZODONE 50MG TABLET 100 MG PO (20:24)
[2023-06-16] MEDS: OXYBUTYNIN 5MG TAB 5 MG PO (20:24)
[2023-06-16] MEDS: PANTOPRAZOLE 40MG VIAL 40 MG IV (20:24)
[2023-06-16 20:28] LABS: POC Glucose,Bedside 184 (70-110)
[2023-06-17] MEDS: BUDESONIDE FORMOTEROL 1 EACH IH ×2 (00:05→10:44)
[2023-06-17 04:00] VITALS: BP 109/71; PULSE 89; RESP 18; TEMP 36.8; O2SAT 97; BMI 32.4
--- NOTE | 2023-06-17 04:02 | PC.NURSE ---
NO C/O SHOULDER PAIN THIS SHIFT THUS FAR. HAS RESTED WELL. TOLERATING IVAB ZOSYN 3.375GM FOR PNEUMONIA. NO C/O PAIN OR DISCOMFORT.
[2023-06-17 05:53] LABS: POC Glucose,Bedside 201 (70-110)
[2023-06-17] MEDS: humaLOG 100 UNITS/ML 3ML VIAL (SSI) SQ (06:04)
[2023-06-17] MEDS: PIPERACILLIN/TAZO 3.375 GM in 0.9 % SODIUM CHLORIDE 50 ML IV (06:04)
[2023-06-17] MEDS: LEVOTHYROXINE 50MCG (0.05MG) TAB 50 MCG PO (06:04)
--- NOTE | 2023-06-17 07:49 | P.PN_ITS ---
Subjective *Date: 06/17/23 *Time: 09:40 Interval history: No acute respiratory vents overnight. Patient denies any new respiratory complaints. Continued to remain on room air. Pulmonology Exam Inpatient Vital signs and Labs for Last 24 Hours: Temp Pulse Resp BP Pulse Ox O2 Del Method 98.2 F 89 18 109/71 L 97 Room Air 06/17/23 04:00 06/17/23 04:00 06/17/23 04:00 06/17/23 04:00 06/17/23 04:00 06/17/23 06:15 Laboratory Results - last 24 hr 06/16/23 05:46: C-Reactive Protein 0.7 06/16/23 11:06: POC Glucose 112 H 06/16/23 17:22: POC Glucose 167 H 06/16/23 20:21: POC Glucose 184 H 06/17/23 05:47: POC Glucose 201 H Temp Pulse Resp BP Pulse Ox O2 Del Method 98.9 F 64 19 115/71 92 L Room Air 06/16/23 08:00 06/16/23 08:00 06/16/23 08:00 06/16/23 08:00 06/16/23 08:00 06/16/23 08:52 Laboratory Results - last 24 hr 06/15/23 15:30: WBC 6.9, RBC 4.75, Hgb 12.4, Hct 39.4, MCV 82.9, MCH 26.1 L, MCHC 31.4 L, RDW 17.2, Plt Count 199, MPV 8.1, Neut % (Auto) 69.5, Lymph % (Auto) 25.9, [place] % (Auto) 3.0, Eos % (Auto) 0.8, Baso % (Auto) 0.8, Neut # (Auto) 4.8, Lymph # (Auto) 1.8, [place] # (Auto) 0.2, Eos # (Auto) 0.1, Baso # (Auto) 0.1, Sodium 139, Potassium 4.1, Chloride 106, Carbon Dioxide 28, Anion Gap 9.1, BUN 12, Creatinine 0.80, Estimated Creat Clear 65, Estimated GFR 71, Est GFR ( Amer) 86, Glucose 158 H, Calcium 10.1, Total Bilirubin 0.3, AST 28, ALT 23, Alkaline Phosphatase 63, Troponin I < 0.01, NT-Pro-B Natriuret Pep 129 H, Total Protein 7.7, Albumin 4.3, Globulin 3.4 H, Albumin/Globulin Ratio 1.3, Lipase 43, TSH 2.76, Thyroxine (T4) 8.3 06/15/23 15:40: Urine Color Yellow, Urine Appearance Clear, Urine pH 6.0, Ur Specific [place] >= 1.030, Urine Protein Negative, Urine Glucose (UA) Negative, Urine Ketones Negative, Urine Blood Trace-i, Urine Nitrate Negative, Urine Bilirubin Negative, Urine Urobilinogen 0.2, Ur Leukocyte Esterase Negative, Urine RBC Occasional, Urine WBC Occasional, Ur Squamous Epith Cells Occasional, Urine Bacteria None 06/15/23 18:53: Troponin I < 0.01 06/15/23 19:45: Troponin I < 0.01 06/15/23 22:37: POC Glucose 118 H 06/16/23 04:54: POC Glucose 109 06/16/23 05:46: WBC 4.9 D, RBC 4.10 L, Hgb 10.7 L D, Hct 33.7 L, MCV 82.3, MCH 26.1 L, MCHC 31.8, RDW 17.3, Plt Count 180, MPV 8.4, Neut % (Auto) 50.9, Lymph % (Auto) 43.3, [place] % (Auto) 4.1, Eos % (Auto) 0.5, Baso % (Auto) 1.2, Neut # (Auto) 2.5, Lymph # (Auto) 2.1, [place] # (Auto) 0.2, Eos # (Auto) 0.0, Baso # (Auto) 0.1, Sodium 136, Potassium 3.5, Chloride 109 H, Carbon Dioxide 25, Anion Gap 5.5, BUN 10, Creatinine 0.70, Estimated Creat Clear 66, Estimated GFR 83, Est GFR ( Amer) 101, Glucose 106 H D, Calcium 8.9, Total Bilirubin 0.3, AST 21, ALT 13 D, Alkaline Phosphatase 58, Total Protein 6.1 L, Albumin 3.3 L D , Globulin 2.8, Albumin/Globulin Ratio 1.2 I & O for Labs for Last 24 Hours: Intake & Output 06/14/23 06/15/23 06/16/23 06/17/23 23:59 23:59 23:59 23:59 Intake Total 2101 / 2101 Output Total 0 / 0 400 / 400 Balance 0 508 1702 / 1702 -1 Weight 172 lb 6.4 oz 172 lb 6.4 oz 176 lb 6.4 oz Intake & Output 06/13/23 06/14/23 06/15/23 06/16/23 23:59 23:59 23:59 23:59 Intake Total 508 / 508 Output Total 0 / 0 0 / 0 Balance 0 / 508 508 / 508 Weight 172 lb 6.4 oz 172 lb 6.4 oz Microbiology Reports for the Last 24 Hours: Microbiology 06/16/23 Unknown Sputum - Expectorated Sputum MARKIE Preparation - Final Constitutional: Present moderate distress Head: Present normocephalic and atraumatic ENT: Present normal exam, normal oropharynx and mucous membranes moist Neck: Present normal inspection and full ROM Respiratory: Present able to speak in complete sentences; Absent respiratory distress, wheezes or crackles Cardiac: Present S1/S2, Tachycardia and radial pulses present GI: Present soft and distention; Absent tenderness or guarding Rectal (female): Present deferred (female): Present deferred Skin: Present intact; Absent cyanosis or jaundice Neuro: Present alert, awake and oriented x 3 Extremities: Present normal inspection; Absent clubbing or cyanosis Psychiatric: Present normal affect and cooperative Assessment and Plan *Assessment and plan (1) Pneumonia with cavity of lung: Status: Acute Category: Medical Code(s): J18.9 - Pneumonia, unspecified organism; J98.4 - Other disorders of lung (2) History of COPD: Status: Acute Category: Medical Code(s): Z87.09 - Personal history of other diseases of the respiratory system Plan Ms. Dominguez is a 67-year-old female with history hypertension dyslipidemia hypothyroidism type 2 diabetes mellitus iron deficiency anemia and gastroesophageal reflux disease presented to the ER for possible evaluation of syncope. Patient other complaints upon presentation reported to include abdomin al discomfort, chronic diarrhea loss of appetite low back pain nausea and vomiting along with bilateral lower extremity swelling. Pulmonary was called for the noted abnormal CT imaging that showed left upper lobe cavitary lesion Low-dose CT July 2022 the left upper lobe nodular lesion which has evolved into a cavitary lesion with thin solis on her CT from May 2023. This nodule / cavitary lesions was not present on her CT from 2021. Patient on initial examination denies any worsening respiratory distress. On room air at baseline. COPD at baseline stable with no frequent exacerbations. Denies any worsening cough or productive phlegm. Interval update: No acute respiratory vents overnight. Stable oxygen requirements. Stable leukocytosis. Continue to remain on room air. She is currently receiving Zosyn. Plan: No need for antibiotics from pulmonary standpoint at this time. Continue home inhaler therapy along with DuoNebs every 6 hours on as-needed basis Follow the infectious workup including serum fungal serologies, sputum AFB fungal stain cultures, bacterial stain cultures and TB QuantiFERON. If the infectious workup is unyielding will consider bronchoscopy as an outpatient basis. Thank you for involving pulmonary in this patient care. Patient can be discharged from pulmonary standpoint. Will follow the patient in pulmonary clinic 2 weeks post discharge.
[2023-06-17 08:00] VITALS: BP 116/61; PULSE 64; RESP 20; TEMP 36.8; O2SAT 95
[2023-06-17] MEDS: ATENOLOL 25MG TABLET 25 MG PO (08:23)
[2023-06-17] MEDS: LORATADINE 10MG TABLET 10 MG PO (08:24)
[2023-06-17] MEDS: OXYBUTYNIN 5MG TAB 5 MG PO (08:24)
[2023-06-17] MEDS: SERTRALINE 100MG TABLET 100 MG PO (08:24)
[2023-06-17] MEDS: DICYCLOMINE 10MG CAPSULE 10 MG PO (08:24)
[2023-06-17] MEDS: BUSPIRONE HCL 5 MG TABLET PO (08:24)
[2023-06-17] MEDS: ENOXAPARIN 40MG/0.4ML SYRINGE 40 MG SQ (08:25)
[2023-06-17] MEDS: FLUTICASONE PROP 50MCG NASAL SPRAY 16GM 1 SPRAY NS (08:26)
--- NOTE | 2023-06-17 14:39 | EXP.DC.SUM ---
General Admission date:: 06/15/23 Discharge date: 06/17/23 HPI HPI HPI: This is a 67-year-old female with history of hypertension, hyperlipidemia, hypothyroidism, type 2 diabetes, anxiety, iron deficiency anemia, and GERD presenting to the emergency department for evaluation with concern for syncope. Patient reports that she went to her PCPs office today for follow-up because she had been having diarrhea chronically. She states that for several weeks now, she has been having loose, watery diarrhea that is nonbloody and nonmelanotic. She states that anything she eats passes right through her. She has a hard time maintaining a good appetite because of this and had not eaten or drink much today. She states that she is also had some low back pain, nausea, and vomiting has been going on for 3 to 4 days now. She is also had bilateral lower extremity swelling. She went to her PCPs office today, and when she reported all of the symptoms to them, she was sent to the ED for further evaluation and management. She denies any associated headaches, vision changes, chest pain, shortness of breath, or palpitations. No history of blood clots or clotting disorders. No recent surgery or immobilization. She does note that she has had some mild generalized abdominal pain that seems to migrate. It is not well localizable. She has a remote history of cholecystectomy and x 2. On medical record review, she underwent CT imaging on 06/13/2023 of her chest, abdomen, and pelvis and was found to have a lung nodule for which biopsy was recommended as well as findings concerning for enteritis versus ileus. admitted. Hospital Course Hospital Course Hospital Course: Patient was seen and evaluated at the bedside on the day of discharge. Patient wishes to be discharged. All patient questions were answered and patient was given time to ask questions. Patient was discharged in stable condition. Patient understands that she can return to ER in case of any sudden changes in health. Total time spent on DC - 38 mins 67-year-old female with history of hypertension, hyperlipidemia, hypothyroidism, type 2 diabetes, anxiety, iron deficiency anemia, and GERD presenting to the emergency department for evaluation with concern for syncope. Patient reports that she went to her PCPs office today for follow-up because she had been having diarrhea chronically. initial workup included CBC, CMP, lipase, TSH, T4, troponin, BNP, urinalysis, diarrhea panel, CT PE protocol, and CT abdomen and pelvis with IV contrast. EKG was obtained and was reassuring. Patient was given a bolus of IV fluids as well as IV Zofran for symptomatic improvement. CT of abdomen shows concern for colitis. Labs were obtained that demonstrated no acutely concerning abnormalities at this time Intractable nausea, vomit and diarrhea likely secondary to enterocolitis: - improved to rule out infective vs food induced:n - improved Distal esophagitis and gatritis - improved DC on protonix, cefdinir and azithromycin -Cavitary lung lession and nodule: Asymptomatic, on RA F/u outpatient [facility] pulmonology for further management -COPD: stable not on exacerbation. resume home nebulizewre Exam Data for Last 24 hours Vital signs and Labs for Last 24 Hours: Temp Pulse Resp BP Pulse Ox O2 Del Method 98.2 F 64 20 116/61 95 Room Air 06/17/23 08:00 06/17/23 08:00 06/17/23 08:00 06/17/23 08:00 06/17/23 08:00 06/17/23 09:00 Laboratory Results - last 24 hr 06/16/23 17:22: POC Glucose 167 H 06/16/23 20:21: POC Glucose 184 H 06/17/23 05:47: POC Glucose 201 H I & O for Last 24 hours: Intake & Output 06/14/23 06/15/23 06/16/23 06/17/23 23:59 23:59 23:59 23:59 Intake Total 2102 / 2102 360 / 360 Output Total 0 / 0 400 / 400 1 / 1 Balance 0 / 508 1702 / 1702 359 / 359 Weight 78.199 kg 78.199 kg 80.014 kg Microbiology Reports for the Last 24 Hours: Microbiology 06/16/23 Unknown Sputum - Expectorated Sputum MARKIE Preparation - Final Constitutional Constitutional: no acute distress *Routine HEENT Exam Head: Present normocephalic Eye: Present EOMI and PERRL ENT: Present mucous membranes moist *Routine Neck Exam Neck: Present supple; Absent lymphadenopathy *Routine Respiratory Exam Respiratory: Present CTA bilaterally *Routine Cardiovascular Exam Cardiovascular: Present RRR *Routine Abdominal Exam Abdominal: Present soft and normoactive bowel sounds; Absent tenderness *Routine Extremities Exam Extremities: Absent cyanosis, clubbing or edema *Routine Skin Exam Skin: Present warm; Absent rash *Routine Neurological Exam Neurological: Present alert and oriented X3 Results Data Completed and Pending Labs on day of discharge: Labs from last 24 hours 06/17/23 06/16/23 06/16/23 05:47 20:21 17:22 POC Glucose 201 H 184 H 167 H DS: Diagnosis Discharge Diagnosis (1) Pneumonia with cavity of lung: Status: Acute Code(s): J18.9 - Pneumonia, unspecified organism; J98.4 - Other disorders of lung (2) History of COPD: Status: Acute Code(s): Z87.09 - Personal history of other diseases of the respiratory system Meds Home Medications and Allergies Home Medications Medication Instructions Recorded Confirmed Type atenolol 25 mg tablet 25 mg PO DAILY Hypertension 10/05/17 06/15/23 History levothyroxine 50 mcg tablet 50 mcg PO DAILY Hypothyroidism 01/31/19 06/15/23 History rosuvastatin 20 mg tablet 20 mg PO HS Cholesterol 01/31/19 06/15/23 History omeprazole 40 mg capsule,delayed 40 mg PO BID GERD 02/01/19 06/15/23 History release potassium chloride 10 mEq 10 meq PO BID Supplement ##60 09/17/19 06/15/23 Rx capsule,extended release oxybutynin chloride 10 mg 10 mg PO DAILY #30 tabs 04/23/21 06/15/23 Rx tablet,extended release 24 hr polyethylene glycol 3350 17 17 g PO DAILY Constipation 06/11/21 06/15/23 History gram/dose oral powder alendronate 70 mg tablet 70 mg PO WEEKLY 05/17/23 06/15/23 History blood sugar diagnostic (Easy Touch #10 ea 05/17/23 06/15/23 History Test Strip) cetirizine 10 mg tablet 10 mg PO DAILY 05/17/23 06/15/23 History fluticasone propionate 50 1 spray intranasal DAILY Allergy 05/17/23 06/15/23 History mcg/actuation nasal symptoms spray,suspension indomethacin 25 mg capsule 25 mg PO TID PRN Pain 05/17/23 06/15/23 History metformin 850 mg tablet 850 mg PO HS 05/17/23 06/15/23 History sertraline 100 mg tablet 100 mg PO DAILY 05/17/23 06/15/23 History trazodone 100 mg tablet 100 mg PO HS 05/17/23 06/15/23 History albuterol sulfate 90 mcg/actuation 2 puff inhalation Q4-6H PRN copd 05/31/23 06/15/23 History aerosol inhaler budesonide-formoterol HFA 80 1 puff inhalation Q12H 05/31/23 06/15/23 History mcg-4.5 mcg/actuation aerosol inhaler ondansetron HCl 4 mg tablet 4 mg PO Q8H PRN nausea 05/31/23 06/15/23 History buspirone 5 mg tablet 5 mg PO BID #60 tabs 06/03/23 06/15/23 Rx cholecalciferol (vitamin D3) 1,250 1,250 mcg PO WEEKLY 06/16/23 06/16/23 History mcg (50,000 unit) capsule azithromycin 500 mg tablet 500 mg PO DAILY 5 days #5 tabs 06/17/23 Rx levofloxacin 750 mg tablet 750 mg PO DAILY 5 days #5 tabs 06/17/23 Rx pantoprazole 40 mg tablet,delayed 40 mg PO DAILY #10 tabs 06/17/23 Rx release (Protonix) New Prescriptions to Start Prescriptions: azithromycin Lazarus,Irfan levofloxacin Lazarus,Irfan pantoprazole [Protonix] Lazarus,Irfan Allergies Allergy/AdvReac Type Severity Reaction Status Date / Time nickel Allergy Intermediate I-RASH Verified 06/15/23 14:54 silk Allergy Mild I-RASH Verified 06/15/23 14:54 cefaclor Allergy Unknown RASH/DIFF Verified 06/15/23 14:54 BREATHING ibuprofen Allergy Unknown NA-NAUSEA/V Verified 06/15/23 14:54 OMITING levofloxacin [From Levaquin] Allergy Unknown Unknown Verified 06/15/23 14:54 allergy reaction morphine Allergy Unknown BOTTOMS Verified 06/15/23 14:54 OUT UP nitrofurantoin Allergy Unknown Unknown Verified 06/15/23 14:54 [From MACROBID] allergy reaction Sulfa (Sulfonamide Allergy Unknown Unknown Verified 06/15/23 14:54 Antibiotics) allergy reaction Discharge Plan Disposition Patient Disposition: Home, Self-Care Condition: Good Follow up Plan Follow up with: Mari Carrero APRN [Primary Care Provider] - 06/24/23 11:15 am Donavan Doll MD [Physician] - 07/05/23 1:15 pm Prescriptions/Medication Reconciliation: New levofloxacin 750 mg tablet 750 mg PO DAILY 5 Days Qty: 5 0RF azithromycin 500 mg tablet 500 mg PO DAILY 5 Days Qty: 5 0RF pantoprazole [Protonix] 40 mg tablet,delayed release (DR/EC) 40 mg PO DAILY Qty: 10 0RF Continued indomethacin 25 mg capsule 25 mg PO TID PRN (Reason: Pain) Rx Instructions: Take with food metformin 850 mg tablet 850 mg PO HS cetirizine 10 mg tablet 10 mg PO DAILY trazodone 100 mg tablet 100 mg PO HS sertraline 100 mg tablet 100 mg PO DAILY alendronate 70 mg tablet 70 mg PO WEEKLY (DME) Easy Touch Test Strip Strip See Rx Instructions .ROUTE .MEDSUPPLY Qty: 10 Patient Comments: USE TO test blood sugar ONCE DAILY Rx Instructions: As directed budesonide-formoterol 80-4.5 mcg/actuation HFA aerosol inhaler 1 puff inhalation Q12H Patient Comments: INHALE TWO PUFFS BY MOUTH EVERY TWELVE HOURS albuterol sulfate 90 mcg/actuation HFA aerosol inhaler 2 puff inhalation Q4-6H PRN (Reason: copd) Patient Comments: INHALE TWO PUFFS BY MOUTH EVERY 4 TO 6 HOURS NEEDED FOR SHORTNESS OF BREATH OR wheezing ondansetron HCl 4 mg tablet 4 mg PO Q8H PRN (Reason: nausea) Patient Comments: TAKE ONE TABLET BY MOUTH EVERY 8 HOURS NEEDED FOR NAUSEA AND VOMITING atenolol 25 MG tablet 25 mg PO DAILY oxybutynin chloride 10 mg tablet extended release 24hr 10 mg PO DAILY Qty: 30 6RF buspirone 5 mg tablet 5 mg PO BID Qty: 60 2RF potassium chloride 10 MEQ capsule, extended release 10 meq PO BID Qty: 60 3RF cholecalciferol (vitamin D3) 1,250 mcg (50,000 unit) capsule 1,250 mcg PO WEEKLY Patient Comments: TAKE ONE CAPSULE BY MOUTH ONCE PER WEEK levothyroxine 50 MCG tablet 50 mcg PO DAILY Patient Comments: TAKE ONE TABLET BY MOUTH EVERY DAY rosuvastatin 20 MG tablet 20 mg PO HS Patient Comments: TAKE 1 TABLET BY MOUTH EVERY DAY AT BEDTIME omeprazole 40 MG capsule,delayed release(DR/EC) 40 mg PO BID fluticasone propionate 50 mcg/actuation spray,suspension 1 spray intranasal DAILY polyethylene glycol 3350 238 GM powder 17 g PO DAILY Rx Instructions: Dissolve in 4 to 8 ounces of liquid and drink daily Other Ambulatory Orders: Home Medical Equipment (Routine) Location: None Selected Ordered By: Kierra Qiu Problem Reconciliation Problems Reviewed?: Yes Patient Discharge Instructions ACTIVITY: Ambulate as tolerated DIET: continue same diet Providers Primary Care Provider: Mari Carrero Admit Provider: Kierra Qiu Attending Provider: Kierra Qiu
[2023-06-18 18:14] LABS: QuantiFERON-TB Gold Plus Negative (Negative)
[2023-06-19 18:36] LABS: Histoplasma Antibody Quant Negative (Neg:<1:1)
[2023-06-21 20:09] LABS: Aspergillus flavus Negative (Neg:<1:1); Aspergillus fumigatus Negative (Neg:<1:1); Aspergillus niger Negative (Neg:<1:1); Blastomyces Antibody Negative (Neg:<1:1)
== END 2023-06-17 15:23 | disposition home or self-care (01) ==
LOC: ER 19:46 → 2ND 20:09
PROVIDERS: Internal Medicine Pulmonary Disease; Nurse Practitioner Family; Admitting Provider Internal Medicine; Emergency Provider Emergency Medicine; PCP Nurse Practitioner Family; Visit Provider Internal Medicine
DX: R19.7 Diarrhea, unspecified (principal); J18.9 Pneumonia, unspecified organism; K52.9 Noninfective gastroenteritis and colitis, unspecified; R53.1 Weakness; E11.69 Type 2 diabetes mellitus with other specified complication; R91.1 Solitary pulmonary nodule; R10.9 Unspecified abdominal pain; I10 Essential (primary) hypertension; E03.9 Hypothyroidism, unspecified; F17.210 Nicotine dependence, cigarettes, uncomplicated; Z79.899 Other long term (current) drug therapy; D50.9 Iron deficiency anemia, unspecified; J44.9 Chronic obstructive pulmonary disease, unspecified; R60.0 Localized edema
CPT/HCPCS: 36415; 71275; 74177; 80053; 81001; 82962; 83690; 83880; 84436; 84443; 84484; 85025; 86140; 86480; 86606; 86612; 86641; 86698; 87070; 87116; 87186; 87205; 87206; 87220; 87506; 93005; 93971; 94640; 97162; 97166; 97530; 99285; G0378; J2405; J2543; Q9967

== ENCOUNTER 2023-07-27 16:21 | Outpatient (CLI) | payer MEDICARE, SELFPAY ==
--- NOTE | 2023-07-27 16:26 | XR_ITS ---
PROCEDURE INFORMATION: Exam: XR Lumbosacral Spine Exam date and time: 07/27/2023 4:28 PM Age: 68 years old Clinical indication: Low back pain; Additional info: Lbp with left radiculopathy TECHNIQUE: Imaging protocol: Radiologic exam of the lumbosacral spine. Views: 2 or 3 views. COMPARISON: MR LUMBAR SPINE WO CON 12/28/2018 2:03 PM FINDINGS: Bones/joints: There is mild lower lumbar degenerative disease with facet arthropathy and intervertebral disc space narrowing. No acute fracture or dislocation is identified. Soft tissues: Unremarkable. Intraperitoneal space: There are right upper quadrant surgical clips suggesting prior cholecystectomy. Vasculature: Scattered atherosclerotic disease of the arterial vasculature. Other findings: Prevertebral and paravertebral soft tissues appear unremarkable. IMPRESSION: Degenerative disease without acute injury identified.
== END 2023-07-27 23:59 | disposition home or self-care (01) ==
LOC: RAD 16:23
PROVIDERS: PCP Nurse Practitioner Family; Visit Provider Nurse Practitioner Family
DX: R10.9 Unspecified abdominal pain; M54.59 Other low back pain; K59.01 Slow transit constipation; Z79.899 Other long term (current) drug therapy
CPT/HCPCS: 72100; 87086

== ENCOUNTER 2023-11-18 16:58 | Outpatient (CLI) | payer MEDICARE, SELFPAY ==
[2023-11-18 16:24] LABS: Microscopic, Urine URINE MICROSCOPIC (MICROSCOPIC)
[2023-11-18 16:53] LABS: Appearance,Urine CLEAR (Clear); Bilirubin,Urine Negative (Negative); Blood, Urine TRACE-I (Negative); Color,Urine YELLOW (Yellow); Glucose,Urine (UA) 1+ (Negative); Ketones,Urine Negative (Negative); Leukocyte Esterase,Urine 2+ (Negative); Nitrate,Urine POSITIVE (Negative); Protein,Urine Negative (Negative); Specific Gravity, Urine >= 1.030 (1.005-1.030); Urobilinogen,Urine 0.2 EU/dl (0.2)
[2023-11-18 17:10] LABS: Bacteria,Urine 4+ /lpf; WBC,Urine TNTC #/hpf (0-3)
[2023-11-18 17:11] LABS: Alanine Aminotransferase 25 U/L (12-78); Albumin Level 4.1 g/dl (3.5-5.0); Albumin/Globulin Ratio 1.1 (1.1-1.8); Alkaline Phosphatase 75 U/L (38-126); Anion Gap 12.6 mEq/L (5-15); Aspartate Amino Transferase 22 U/L (14-36); Bilirubin,Total 0.5 mg/dl (0.2-1.3); Blood Urea Nitrogen 17 mg/dl (7-17); Calcium 9.8 mg/dl (8.4-10.2); Carbon Dioxide 24 mmol/L (22.0-30.0); Chloride 103 mmol/L (98-107); Estimated Glomerular Filt Rate 99 ml/min (>60); GFR (African American) 120 ML/MIN (>60); Globulin 3.6 g/dL (1.3-3.2); Glucose 185 mg/dl (74-100); Magnesium 1.7 mg/dl (1.6-2.3); Potassium 4.6 mmoL/L (3.5-5.1); Sodium 135 mmol/L (136-145); Total Protein,Serum 7.7 g/dl (6.3-8.2)
== END 2023-11-18 23:59 | disposition home or self-care (01) ==
LOC: LAB.DROPOF 16:58
PROVIDERS: PCP Nurse Practitioner Family; Visit Provider Nurse Practitioner Family
DX: N39.0 Urinary tract infection, site not specified (principal); R25.2 Cramp and spasm
CPT/HCPCS: 80053; 81001; 83735; 87086; 87088; 87186

== ENCOUNTER 2023-12-12 16:39 | Outpatient (CLI) | payer MEDICARE, SELFPAY | END 2023-12-12 23:59 | disposition home or self-care (01) | LOC: LAB.DROPOF 12-14 16:39 | PROVIDERS: PCP Nurse Practitioner Family; Visit Provider Nurse Practitioner Family | DX: N39.0 Urinary tract infection, site not specified (principal) | CPT/HCPCS: 87086; 87088; 87186 ==

== ENCOUNTER 2023-12-26 16:53 | Outpatient (CLI) | payer MEDICARE, SELFPAY ==
[2023-12-26 16:01] LABS: Microscopic, Urine URINE MICROSCOPIC (MICROSCOPIC)
[2023-12-26 16:14] LABS: Appearance,Urine CLEAR (Clear); Bilirubin,Urine Negative (Negative); Blood, Urine 1+ (Negative); Color,Urine YELLOW (Yellow); Glucose,Urine (UA) 1+ (Negative); Ketones,Urine Negative (Negative); Leukocyte Esterase,Urine 2+ (Negative); Nitrate,Urine POSITIVE (Negative); Protein,Urine 1+ (Negative); Specific Gravity, Urine >= 1.030 (1.005-1.030); Urobilinogen,Urine 0.2 EU/dl (0.2)
[2023-12-26 17:13] LABS: WBC,Urine TNTC #/hpf (0-3)
[2023-12-26 17:14] LABS: Bacteria,Urine 4+ /lpf
== END 2023-12-26 23:59 | disposition home or self-care (01) ==
LOC: LAB.DROPOF 16:54
PROVIDERS: PCP Nurse Practitioner Family; Visit Provider Nurse Practitioner Family
DX: R30.0 Dysuria (principal); N39.0 Urinary tract infection, site not specified
CPT/HCPCS: 81001; 87086; 87088; 87186

== ENCOUNTER 2024-01-17 15:34 | Outpatient (CLI) | payer MEDICARE, SELFPAY | END 2024-01-17 23:59 | disposition home or self-care (01) | LOC: LAB 15:34 | PROVIDERS: PCP Nurse Practitioner Family; Visit Provider Internal Medicine Gastroenterology | DX: Z02.9 Encounter for administrative examinations, unspecified (principal) ==

== ENCOUNTER 2024-01-18 16:41 | Outpatient (CLI) | payer MEDICARE, SELFPAY ==
[2024-01-18 16:52] LABS: Adenovirus F 40/41, stool Not Detected (NotDetected); Astrovirus Not Detected (NotDetected); Campylobacter Not Detected (NotDetected); Clostridium Difficile A/B, PCR Not Detected (NotDetected); Cryptosporidium Not Detected (NotDetected); Cyclospora Cayetanesis Not Detected (NotDetected); Entamoeba histolytica Not Detected (NotDetected); Enteroaggregative E coli Not Detected (NotDetected); Enteropathogenic E coli Not Detected (NotDetected); Enterotoxigenic E coli Not Detected (NotDetected); Giardia lamblia Not Detected (NotDetected); Plesimonas Shigalloides, PCR Not Detected (NotDetected); Rotavirus A Not Detected (NotDetected); Salmonella, PCR Not Detected (NotDetected); Sapovirus Not Detected (NotDetected); Shiga-like toxin E coli Not Detected (NotDetected); Shigella Enterovasive E coli Not Detected (NotDetected); Vibrio Cholerae Not Detected (NotDetected); Vibrio, PCR Not Detected (NotDetected); Yersinia Entercolitica, PCR Not Detected (NotDetected)
[2024-01-18 20:14] LABS: Occult Blood,Stool Negative (Negative)
[2024-01-19 09:08] LABS: Norovirus Detected (NotDetected)
[2024-01-23 22:07] LABS: Calprotectin, Fecal 99 ug/g (0-120)
== END 2024-01-18 23:59 | disposition home or self-care (01) ==
LOC: LAB 16:42
PROVIDERS: PCP Internal Medicine Gastroenterology; Visit Provider Internal Medicine Gastroenterology
DX: R19.7 Diarrhea, unspecified (principal)
CPT/HCPCS: 82272; 83993; 87506; G0328

== ENCOUNTER 2024-03-16 13:21 | Outpatient (CLI) | payer MEDICARE, SELFPAY ==
[2024-03-19 04:20] LABS: Pancreatic Elastase, Fecal >800 (>200)
== END 2024-03-16 23:59 | disposition home or self-care (01) ==
LOC: LAB 13:21
PROVIDERS: PCP Nurse Practitioner Family; Visit Provider Nurse Practitioner Family
DX: A08.11 Acute gastroenteropathy due to Norwalk agent (principal); K52.832 Lymphocytic colitis; R10.84 Generalized abdominal pain
CPT/HCPCS: 82656

== ENCOUNTER 2024-04-11 16:47 | Emergency (ER) | payer MEDICARE, SELFPAY ==
[2024-04-11 16:49] VITALS: BP 151/99; PULSE 88; RESP 18; TEMP 37.8; O2SAT 95; BMI 36.2
--- NOTE | 2024-04-11 17:10 | CT_ITS ---
PROCEDURE INFORMATION: Exam: CT Abdomen And Pelvis With Contrast Exam date and time: 04/11/2024 5:48 PM Age: 68 years old Clinical indication: Abdominal pain; Generalized; Additional info: HX colitis, worsening abdominal pain TECHNIQUE: Imaging protocol: Computed tomography of the abdomen and pelvis with contrast. Radiation optimization: All CT scans at this facility use at least one of these dose optimization techniques: automated exposure control; mA and/or kV adjustment per patient size (includes targeted exams where dose is matched to clinical indication); or iterative reconstruction. Contrast material: ISOVUE; Contrast volume: 75 ml; Contrast route: IV; COMPARISON: CT ABDOMEN PELVIS W CON 06/15/2023 4:44 PM FINDINGS: Liver: There is diffuse hypoattenuation of the liver compatible with mild hepatic steatosis. Gallbladder and biliary ducts: There are surgical clips within the gallbladder fossa. Pancreas: Normal. No ductal dilation. Spleen: Mild splenomegaly measuring 13.3 cm. Adrenal glands: Normal. No mass. Kidneys and ureters: Normal. No hydronephrosis. Stomach and bowel: Left upper quadrant mild small bowel thickening may represent mild enteritis. Diverticula are scattered throughout the colon without inflammatory changes. Appendix: No evidence of appendicitis. Intraperitoneal space: Unremarkable. No free air. No significant fluid collection. Vasculature: Moderate calcific atherosclerotic disease of the abdominal aorta without aneurysmal dilatation is present. Lymph nodes: Unremarkable. No enlarged lymph nodes. Urinary bladder: Inflammatory stranding of the urinary bladder wall compatible with cystitis. Reproductive: Unremarkable as visualized. Bones/joints: Moderate loss of intervertebral disc space with degenerative changes at the lumbar spine greatest at L4-L5. Soft tissues: Normal. IMPRESSION: 1. Left upper quadrant mild small bowel thickening may represent mild enteritis. 2. Inflammatory stranding of the urinary bladder wall may represent cystitis in the appropriate clinical setting.
--- NOTE | 2024-04-11 17:10 | XR_ITS ---
PROCEDURE INFORMATION: Exam: XR Chest Exam date and time: 04/11/2024 5:43 PM Age: 68 years old Clinical indication: Cough; Additional info: Cough, fever TECHNIQUE: Imaging protocol: Radiologic exam of the chest. Views: 2 views. COMPARISON: CT ANGIO CHEST PE PROTOCOL 06/15/2023 4:44 PM FINDINGS: Lungs: Left upper lobe cavitated nodule unchanged from CT dated 06/13/2023. Pleuroparenchymal scarring of the lung bases with subsegmental atelectasis is present without consolidations or pleural effusions that project above the diaphragm. Pleural spaces: Unremarkable. No pleural effusion. No pneumothorax. Heart/Mediastinum: Unremarkable. No cardiomegaly. Bones/joints: Unremarkable. IMPRESSION: Pleuroparenchymal scarring of the lung bases with subsegmental atelectasis is present without consolidations or pleural effusions that project above the diaphragm.
--- NOTE | 2024-04-11 17:15 | HMH.EDGENADL ---
Discharge Plan Disposition Patient Disposition: Home, Self-Care Condition: Good Prescriptions Prescriptions: New ciprofloxacin HCl 250 mg tablet 250 mg PO BID 3 Days Qty: 6 0RF No Action Creon 36,000-114,000- 180,000 unit capsule,delayed release(DR/EC) 1 cap PO DAILY Patient Comments: TAKE TWO CAPSULES BY MOUTH 5 TIMES DAILY TAKE 1 CAPSULE WITH SNACKS nystatin 100,000 unit/gram cream 1 applic topical TID 7 Days Qty: 30 0RF Nizoral Psoriasis 3 % shampoo 1 applic topical .COMPLEX PRN (Reason: psoriasis) Qty: 325 0RF Rx Instructions: 1 applic topically 2 times per week PRN; lather into wet hair; leave in place for approximately 3 mins ; rinse alendronate 70 mg tablet 70 mg PO WEEKLY triamcinolone acetonide 0.1 % ointment 1 applic topical TID 10 Days Qty: 30 0RF budesonide 9 mg tablet,delayed and ext.release 9 mg PO ONCE Patient Comments: TAKE ONE TABLET BY MOUTH EVERY DAY atenolol 25 MG tablet 25 mg PO DAILY Venofer 200 mg iron/10 mL solution 200 mg IV Q3D Rx Instructions: administer over 30 mins (DME) Easy Touch Test Strip Strip See Rx Instructions .ROUTE .MEDSUPPLY Qty: 100 3RF Rx Instructions: As directed daily (DME) pen needle, diabetic [Easy Touch Pen Needle] 30 gauge x 5/16 needle See Rx Instructions .Route Qty: 100 3RF Rx Instructions: As directed calcium polycarbophil [FiberCon] 625 mg tablet 1,250 mg PO DAILY Qty: 60 0RF oxybutynin chloride 10 mg tablet extended release 24hr 10 mg PO DAILY Qty: 90 3RF trazodone 100 mg tablet See Rx Instructions .ROUTE .COMPLEX Qty: 30 2RF Dose Instruction: TAKE ONE TABLET BY MOUTH EVERY DAY AT BEDTIME Rx Instructions: TAKE ONE TABLET BY MOUTH EVERY DAY AT BEDTIME sertraline 100 mg tablet See Rx Instructions .ROUTE .COMPLEX Qty: 30 2RF Dose Instruction: TAKE ONE TABLET BY MOUTH EVERY DAY Rx Instructions: TAKE ONE TABLET BY MOUTH EVERY DAY metformin 850 mg tablet See Rx Instructions .ROUTE .COMPLEX Qty: 30 2RF Dose Instruction: TAKE ONE TABLET BY MOUTH EVERY DAY AT BEDTIME Rx Instructions: TAKE ONE TABLET BY MOUTH EVERY DAY AT BEDTIME buspirone 10 mg tablet See Rx Instructions .ROUTE .COMPLEX Qty: 60 2RF Dose Instruction: TAKE ONE TABLET BY MOUTH TWICE DAILY Rx Instructions: TAKE ONE TABLET BY MOUTH TWICE DAILY promethazine 25 mg tablet 25 mg PO BID PRN (Reason: nausea and vomiting) Qty: 30 2RF albuterol sulfate 90 mcg/actuation HFA aerosol inhaler See Rx Instructions .ROUTE .COMPLEX Qty: 8.5 2RF Dose Instruction: INHALE 2 PUFFS BY MOUTH EVERY 4 TO 6 HOURS NEEDED FOR SHORTNESS OF BREATH OR WHEEZING Rx Instructions: INHALE 2 PUFFS BY MOUTH EVERY 4 TO 6 HOURS NEEDED FOR SHORTNESS OF BREATH OR WHEEZING budesonide-formoterol [Symbicort] 80-4.5 mcg/actuation HFA aerosol inhaler See Rx Instructions .ROUTE .COMPLEX Qty: 10.2 2RF Dose Instruction: INHALE TWO PUFFS BY MOUTH EVERY TWELVE HOURS Rx Instructions: INHALE TWO PUFFS BY MOUTH EVERY TWELVE HOURS pantoprazole 40 mg tablet,delayed release (DR/EC) See Rx Instructions .ROUTE .COMPLEX Qty: 90 0RF Dose Instruction: TAKE ONE TABLET BY MOUTH DAILY Rx Instructions: TAKE ONE TABLET BY MOUTH DAILY levothyroxine 50 mcg tablet 50 mcg PO DAILY Qty: 90 0RF potassium chloride 10 MEQ capsule, extended release 10 meq PO BID Qty: 60 3RF rosuvastatin 20 MG tablet 20 mg PO HS Patient Comments: TAKE 1 TABLET BY MOUTH EVERY DAY AT BEDTIME Referrals Follow up/Referrals: Mari Carrero APRN [Primary Care Provider] - See instructions Activity Restrictions/Add. Instructions Additional Instructions/Restrictions: You were found to have a urinary tract infection. You are being prescribed ciprofloxacin, an antibiotic. Take this as prescribed until completion. Talk with your primary care physician about follow-up appointment later this week. If you develop any new or worsening symptoms, such as shortness of breath, hives, feeling as if your throat is closing off, worsening confusion, or if you become concerned for your health for any reason, call 911 and return to the emergency department for evaluation Clinical Impressions Clinical Impression: Acute cystitis Instructions Patient Instructions: DI for Urinary Tract Infection (UTI) Print Language Print Language: Spanish Discharge ED Provider: Reji Todd Adult [facility] General Chief complaint: Urogenital-Female Stated complaint: sent by sandra Suarez Time Seen by Provider: 04/11/24 17:00 History of Present Illness HPI narrative: Maricel Dominguez is a 68F with a history of abdominal pain, colitis, COPD, type 2 diabetes, who presents to the emergency department for complaints of discoloration in her thighs/vaginal area. Patient states that 1 and half weeks ago, she felt like her external vagina was black and she developed bruising and dark spots on her bilateral thighs. The area in her vagina resolved but she continues to have dark areas in the bilateral thighs. She also reports some sharp burning pains when she urinates. She reports worsening diffuse abdominal pain that she thinks is secondary to her colitis. She feels like she is urinating more than normal and is dehydrated. She tried to call her primary care physician and was instructed to come to the emergency department. She also reports a mild cough but denies any fevers. Related Data Home Medications ?Medication ?Instructions ?Recorded ?Confirmed atenolol 25 mg tablet 25 mg PO DAILY Hypertension 10/05/17 04/11/24 rosuvastatin 20 mg tablet 20 mg PO HS Cholesterol 01/31/19 04/11/24 alendronate 70 mg tablet 70 mg PO WEEKLY 05/17/23 04/11/24 [id number] 1 cap PO DAILY 11/18/23 04/11/24 36,000-114,000-180,000 unit capsule,delay rel (Creon) budesonide 9 mg tablet,delayed and 9 mg PO ONCE 01/17/24 04/11/24 extended release Previous Rx's ?Medication ?Instructions ?Recorded potassium chloride 10 mEq 10 meq PO BID Supplement ##60 09/17/19 capsule,extended release iron sucrose 200 mg iron/10 mL 200 mg (10 mL) IV Q3D 5 doses 06/24/23 intravenous solution (Venofer) nystatin 100,000 unit/gram topical 1 applic topical TID 7 days #30 11/18/23 cream grams salicylic acid 3 % shampoo 1 applic topical .COMPLEX PRN 12/12/23 (Nizoral Psoriasis) psoriasis #325 mL triamcinolone acetonide 0.1 % 1 applic topical TID 10 days #30 12/26/23 topical ointment grams blood sugar diagnostic (Easy Touch #100 ea 01/13/24 Test Strip) pen needle, diabetic 30 gauge x #100 ea 01/13/24/16 (Easy Touch Pen Needle) calcium polycarbophil 625 mg 1,250 mg (2 x 625 mg) PO DAILY #60 01/19/24 tablet (FiberCon) tabs oxybutynin chloride 10 mg 10 mg PO DAILY #90 tabs 02/07/24 tablet,extended release 24 hr buspirone 10 mg tablet See Rx Instructions .Route 03/09/24 .COMPLEX #60 tabs metformin 850 mg tablet See Rx Instructions .Route 03/09/24 .COMPLEX #30 tabs sertraline 100 mg tablet See Rx Instructions .Route 03/09/24 .COMPLEX #30 tabs trazodone 100 mg tablet See Rx Instructions .Route 03/09/24 .COMPLEX #30 tabs promethazine 25 mg tablet 25 mg PO BID PRN nausea and 04/02/24 vomiting #30 tabs albuterol sulfate 90 mcg/actuation See Rx Instructions .Route 04/05/24 aerosol inhaler .COMPLEX #8.5 grams budesonide-formoterol HFA 80 See Rx Instructions .Route 04/05/24 mcg-4.5 mcg/actuation aerosol .COMPLEX #10.2 grams inhaler (Symbicort) pantoprazole 40 mg tablet,delayed See Rx Instructions .Route 04/05/24 release .COMPLEX #90 tabs levothyroxine 50 mcg tablet 50 mcg PO DAILY Hypothyroidism #90 04/10/24 tabs ciprofloxacin HCl 250 mg tablet 250 mg PO BID 3 days #6 tabs 04/11/24 Allergies Allergy/AdvReac Type Severity Reaction Status Date / Time nickel Allergy Intermediate I-RASH Verified 04/11/24 17:19 silk Allergy Mild I-RASH Verified 04/11/24 17:19 cefaclor Allergy Unknown RASH/DIFF Verified 04/11/24 17:19 BREATHING ibuprofen Allergy Unknown NA-NAUSEA/V Verified 04/11/24 17:19 OMITING levofloxacin (From Levaquin) Allergy Unknown Unknown Verified 04/11/24 17:19 allergy reaction morphine Allergy Unknown BOTTOMS Verified 04/11/24 17:19 OUT UP nitrofurantoin (From Allergy Unknown Unknown Verified 04/11/24 17:19 MACROBID) allergy reaction Sulfa (Sulfonamide Allergy Unknown Unknown Verified 04/11/24 17:19 Antibiotics) allergy reaction PFSH [facility] Disclaimer: The information contained in this section may have been updated after the patient was seen, as this information can be updated by other users. Medical History (Updated 04/11/24 @ 18:46 by Reji Todd MD) Abdominal bloating Hypothyroidism Hypertension Type 2 diabetes mellitus Diarrhea History of COPD Pneumonia with cavity of lung Surgical History H/O left breast biopsy Hx of cholecystectomy History of Family History Sister Cancer metastasized all over body, doesn't know type or where it started. Stated it is curable Pancreatic cancer Social History Smoking Status: Current every day smoker tobacco type: cigarettes packs per day: 1 alcohol intake: never substance use type: denies use current occupational status: retired Travel in the last 8 weeks: None household members: family and friend(s) housing: house caffeine: Yes Have you lived/traveled outside [place] in past 30 days?: No Contact w/someone who lives/traveled outside [place] past 30 days?: No Exposure to someone with infectious disease in past 14 days?: No Do you have a fever (greater than 100.4 F or 38 C)?: No Have you tested positive for COVID-19: No Exposed to someone with COVID-19 in past 14 days?: No Do you have a sore throat?: No Do you have a cough?: No Do you have any weakness?: No Do you have any diarrhea?: No Are you experiencing any unusual bleeding?: No Do you have any muscle aches/pain?: No Do you have any abdominal pain?: No Are you experiencing loss of taste or smell?: No Other Medical History Have you received the Flu Vaccine for this season: No Have you received the Pneumonia Vaccine: No ROS Obtained: Yes Systems reviewed as appropriate & no additional complaints except as documented Physical Exam General General appearance: alert and in no apparent distress Head Head exam: atraumatic Eye Eye exam: Present normal appearance ENT ENT exam: Present normal external ear exam Neck Neck exam: Present full ROM Chest Chest inspection: Present symmetric chest wall rise Respiratory Respiratory exam: Present normal lung sounds bilaterally; Absent respiratory distress, wheezes or stridor Cardiovascular Cardiovascular exam: Present regular rate and normal rhythm Abdominal Exam Abdominal exam: Present soft, tenderness (generalized with voluntary guarding. Non-peritonitic) and guarding (voluntary guarding) External exam: Present normal external exam; Absent erythema, tenderness, lesions or other (No ecchymosis or lesions appreciated) Speculum exam: Present other (Deferred) Extremities Exam Extremities exam: Present normal inspection Back Exam Back exam: Present normal inspection Neurological Exam Neurological exam: Present alert and oriented X3 Psychiatric Psychiatric exam: Present normal affect and normal mood Skin Skin exam: Present warm and dry Medical Decision Making Medical Records Screening: Per USPSTF and CDC recommendations, given the prevalence of disease in our region, it is our hospital?s policy to screen for HIV and viral Hepatitis for all patients aged 18 and over and those with ongoing risk factors. Saad Inquiry Pt receiving controlled substance: No Vital Signs: 04/11/24 16:49 04/11/24 17:30 04/11/24 19:02 Temperature 100.0 F H 99 F Temperature Source Oral Pulse Rate 69 63 Pulse Rate [Radial] 88 Respiratory Rate 18 21 21 Blood Pressure 126/75 124/65 Blood Pressure [Right Arm] 151/99 H Blood Pressure Mean [Right Arm] 116 Blood Pressure Source [Right Arm] Automatic Cuff Blood Pressure Position [Right Arm] Sitting 02 Sat by Pulse Oximetry 95 93 L Oxygen Delivery Method Room Air Room Air Room Air Lab Data Lab Results 04/11/24 17:00: WBC 8.7, RBC 5.22, Hgb 12.5, Hct 40.0, MCV 76.6 L, MCH 23.9 L, MCHC 31.3 L, RDW 17.1, Plt Count 189, MPV 9.4, Neut % (Auto) 61.2, Lymph % (Auto) 33.1, [place] % (Auto) 4.6, Eos % (Auto) 0.3, Baso % (Auto) 0.3, Neut # (Auto) 5.3, Lymph # (Auto) 2.9, [place] # (Auto) 0.4, Eos # (Auto) 0.0, Baso # (Auto) 0.0, Sodium 134 L, Potassium 4.4, Chloride 98, Carbon Dioxide 24, Anion Gap 16.4 H, BUN 17, Creatinine 0.70, Estimated Creat Clear 75, Estimated GFR 83, Est GFR ( Amer) 100, Glucose 396 H, Calcium 10.4 H, Total Bilirubin 0.4, AST 32, ALT 31, Alkaline Phosphatase 79, Total Protein 7.3, Albumin 4.2, Globulin 3.1, Albumin/Globulin Ratio 1.4, Lipase 99, Urine Color Yellow, Urine Appearance Clear, Urine pH 6.0, Ur Specific [place] 1.020, Urine Protein Negative, Urine Glucose (UA) 3+, Urine Ketones Negative, Urine Blood Trace-i, Urine Nitrate Positive A, Urine Bilirubin Negative, Urine Urobilinogen 0.2, Ur Leukocyte Esterase 1+ A, Urine RBC 5-10, Urine WBC Tntc, Ur Squamous Epith Cells 5-10, Urine Bacteria 4+, SARS-CoV-2 (PCR) Not detected, HCV Ab JAMES w/Rflx PCR Qn Negative, HIV Ag/Ab Combo Qual Negative, Influenza A Untype (PCR) Not detected, Influenza Type B (PCR) Not detected 04/11/24 17:22: VBG pH 7.41, VBG pCO2 32.9 L, VBG pO2 72.6 H, VBG HCO3 20.4 L, VBG Total CO2 21.4 L, VBG O2 Saturation 94.8 H, VBG Base Excess -4.2 L, VBG Lactic Acid 3.6 H 04/11/24 17:00 04/11/24 17:00 Orders (Tests/Meds): ED MEDICATIONS Discontinued Medications Generic Name Dose Route Start Last Admin Trade Name Freq PRN Reason Stop Dose Admin Acetaminophen 1,000 mg 04/11/24 17:13 04/11/24 17:41 Acetaminophen 500mg Tab PO 04/11/24 17:14 1,000 mg ONCE ONE Administration Lactated Ringer's 500 mls @ 999 mls/hr 04/11/24 17:45 04/11/24 18:20 Lactated Ringer's 500ml IV 04/11/24 18:15 999 mls/hr .Q31M ONE Administration Iopamidol 75 ml 04/11/24 17:48 04/11/24 17:50 Iopamidol-370 (76%);100ml Bottle IV 04/11/24 17:49 75 ml ONCE ONE Administration Ondansetron HCl 4 mg 04/11/24 17:13 04/11/24 17:41 Ondansetron 4mg/2ml Vial IV 04/11/24 17:14 4 mg ONCE ONE Administration Sodium Chloride 10 ml 04/11/24 17:48 04/11/24 17:50 Sodium Chloride 0.9% 10ml Syr (Rad Only) IV 04/11/24 17:49 10 ml ONCE ONE Administration ORDERS Category Date Time Status CT abdomen pelvis w con Stat Cat Scan 04/11/24 17:10 Completed CXR 2 view (NOT portable) [XR chest 2V] Stat Exams 04/11/24 17:10 Completed CBC w/Auto Diff [Complete Blood Count Auto Diff] Stat Lab 04/11/24 17:00 Completed CMP [Comprehensive Metabolic Panel] Stat Lab 04/11/24 17:00 Completed HIV Combo Stat Lab 04/11/24 17:00 Completed Hepatitis C Ab Qual. W/ RFX Stat Lab 04/11/24 17:00 Completed Lipase Stat Lab 04/11/24 17:00 Completed Rapid PCR Covid and Flu A/B Stat Lab 04/11/24 17:00 Completed UA [Urinalysis and Microscopic] Stat Lab 04/11/24 17:00 Completed Urine Culture Stat Micro 04/11/24 17:00 Received VBG [Venous Blood Gas] Stat RT 04/11/24 17:22 Completed Medical Decision Narrative: Maricel Dominguez is a 68F with a past medical history of colitis, abdominal pain, COPD, type 2 diabetes, UTI who presents to the emergency department for complaints of bruising/dark spots around her vagina and thigh over the past 1.5 weeks with resolution of the vaginal dark coloration. She does report sharp burning pain with urination. She reports years of generalized abdominal pain that has unresolved with Tylenol. She states that she was previously diagnosed with colitis and feels like that is the source of her symptoms. On arrival, patient is borderline febrile but temperature of 100.0 Fahrenheit, heart rate within normal limits, normotensive, breathing comfortably on room air with oxygen saturation at 93% (acceptable as patient has COPD). Physical exam, stated above, revealed an overall well-appearing female in no distress. She has diffuse abdominal pain without peritonitis. Abdomen is soft. She has voluntary guarding. External vaginal exam with regulatory attorney showed no vaginal lesions. She has some mild superficial bruising in multiple stages of healing over her right proximal thigh. She is completely alert and oriented. Differential diagnosis includes: UTI, bruising, vaginal atrophy, colitis, diverticulitis, pancreatitis, among others. Workup: CBC with diff, CMP, VBG with lactic acid, UA, COVID/flu swab, lipase, CT abdomen/pelvis with IV contrast. Patient was treated with 1L LR, Zofran IV 4mg, Tylenol 1000mg oral. Workup showed no leukocytosis, no acidosis/alkalosis, lactate 3.6, mild hyponatremia of 134, anion gap mildly elevated at 16.4 (likely from mildly elevated lactate), no RONN, elevated glucose of 396, lipase normal at 99, and urine with evidence of infection with positive nitrate, 1+ leukocyte esterase, too numerous to count WBC with 4+ bacteria. Patient has multiple allergies listed, including cefaclor, levofloxacin, nitrofurantoin and sulfa, limiting what drugs are available for treatment of her urinary tract infection. When discussing with the patient when she is taken in the past, she cannot remember. Per previous chart review, she has had levofloxacin in the past and states that she has tolerated it well and does not have any recollection of any allergy symptoms. Given this, we will discharge with 3-day course of ciprofloxacin for treatment of her urinary tract infection. Workup has been unremarkable for any other acute pathology is felt that she does not require admission and will be treated with outpatient antibiotics with close primary care follow-up. Strict return precautions were given and she was given strict instructions to call 911. She lives at home with 2 family memebers. Critical Care Critical Care Time Critical Care Time: No
[2024-04-11 17:20] LABS: Microscopic, Urine URINE MICROSCOPIC (MICROSCOPIC)
[2024-04-11 17:22] LABS: Appearance,Urine CLEAR (Clear); Basophils % 0.3 % (0.1-2.0); Bilirubin,Urine Negative (Negative); Blood, Urine TRACE-I (Negative); Color,Urine YELLOW (Yellow); Coronavirus 19, PCR Not Detected (NotDetected); Eosinophils % 0.3 % (0.1-12.0); Glucose,Urine (UA) 3+ (Negative); Hemoglobin 12.5 g/dL (12.2-16.2); Influenza A, PCR Not Detected (NotDetected); Influenza B, PCR Not Detected (NotDetected); Ketones,Urine Negative (Negative); Leukocyte Esterase,Urine 1+ (Negative); Lymphocytes # 2.9 K/mm3 (0.7-4.5); Lymphocytes % 33.1 % (10-50); Mean Corpuscular HGB Conc 31.3 g/dL (31.8-35.4); Mean Corpuscular Hemoglobin 23.9 pg (27.0-31.2); Mean Corpuscular Volume 76.6 fl (81-99); Mean Platelet Volume 9.4 fl (7.4-10.4); Monocytes # 0.4 K/mm3 (0.1-1.0); Monocytes % 4.6 % (1.7-9.3); Neutrophils # 5.3 K/mm3 (1.8-7.8); Neutrophils % 61.2 % (37.0-80.0); Nitrate,Urine POSITIVE (Negative); Platelet Count 189 K/mm3 (142-424); Protein,Urine Negative (Negative); Red Blood Count 5.22 M/mm3 (4.20-5.40); Red Cell Distribution Width 17.1 % (11.5-17.5); Urobilinogen,Urine 0.2 EU/dl (0.2); White Blood Count 8.7 K/mm3 (4.8-10.8)
[2024-04-11 17:27] LABS: VBG Base Excess -4.2 mmol/L (-2.4-2.3); VBG HCO3 20.4 mmol/L (23-30); VBG Oxygen Saturation 94.8 % (50-70); VBG PCO2 32.9 mmol/L (35-51); VBG PH 7.41 mmol/L (7.31-7.41); VBG PO2 72.6 mmol/L (28-40); VBG Total CO2 21.4 mmol/L (23-27)
[2024-04-11 17:28] LABS: Albumin Level 4.2 g/dl (3.5-5.0); Chloride 98 mmol/L (98-107); Potassium 4.4 mmoL/L (3.5-5.1); Sodium 134 mmol/L (136-145)
[2024-04-11 17:28] LABS: Lactate Venous 3.6 mmol/L (0.4-2.0)
[2024-04-11 17:30] VITALS: BP 126/75; PULSE 69; RESP 21; O2SAT 93
[2024-04-11 17:31] LABS: Alanine Aminotransferase 31 U/L (12-78); Albumin/Globulin Ratio 1.4 (1.1-1.8); Alkaline Phosphatase 79 U/L (38-126); Anion Gap 16.4 mEq/L (5-15); Aspartate Amino Transferase 32 U/L (14-36); Bilirubin,Total 0.4 mg/dl (0.2-1.3); Blood Urea Nitrogen 17 mg/dl (7-17); Carbon Dioxide 24 mmol/L (22.0-30.0); Creatinine Clearance Estimated 75 mL/min (50-200); Estimated Glomerular Filt Rate 83 ml/min (>60); GFR (African American) 100 ML/MIN (>60); Globulin 3.1 g/dL (1.3-3.2); Lipase 99 U/L (23-300); Total Protein,Serum 7.3 g/dl (6.3-8.2)
[2024-04-11 17:32] LABS: Calcium 10.4 mg/dl (8.4-10.2); Glucose 396 mg/dl (74-100)
--- NOTE | 2024-04-11 17:39 | PC.NURSE ---
Rounded on the PT. The PT voices that she does not need anything at this time. Call light is within reach of the PT.
[2024-04-11] MEDS: ACETAMINOPHEN 500MG TAB 1000 MG PO (17:41)
[2024-04-11] MEDS: ONDANSETRON 4MG/2ML VIAL 4 MG IV (17:41)
--- NOTE | 2024-04-11 17:46 | PC.NURSE ---
PT TO CT
[2024-04-11] MEDS: IOPAMIDOL-370 (76%);100ML BOTTLE 75 ML IV (17:50)
[2024-04-11] MEDS: SODIUM CHLORIDE 0.9% 10ML SYR (RAD ONLY) 10 ML IV (17:50)
[2024-04-11 17:56] LABS: Bacteria,Urine 4+ /lpf; WBC,Urine TNTC #/hpf (0-3)
[2024-04-11] MEDS: RINGERS SOLUTION,LACTATED 500 ML 999 ML IV (18:20)
--- NOTE | 2024-04-11 18:20 | PC.NURSE ---
ROUNDED ON PT, REPOSITIONED IN BED, PILLOW PROVIDED. CALL LIGHT WITHIN REACH
--- NOTE | 2024-04-11 18:33 | PC.NURSE ---
DR JOHNSON AT BEDSIDE TO REEVALUATE PT
[2024-04-11 19:02] VITALS: BP 124/65; PULSE 63; RESP 21; TEMP 37.2; O2SAT 93
[2024-04-11 19:07] LABS: HIV Combo NEGATIVE (Negative)
[2024-04-11 19:15] LABS: Hepatitis C Ab Qual. W/ RFX NEGATIVE (Negative)
[2024-04-11 21:28] LABS: Reflex Lactic Add Lactic Reflex
--- NOTE | 2024-04-12 16:00 | PC.NURSE ---
URINE CULTURE DISCUSSED WITH DR BRADY, NO NEW ORDERS
== END 2024-04-11 19:03 | disposition home or self-care (01) ==
PROVIDERS: Emergency Provider Student in an Organized Health Care Education/Training Program; PCP Nurse Practitioner Family
DX: N30.00 Acute cystitis without hematuria (principal); L81.9 Disorder of pigmentation, unspecified; R30.9 Painful micturition, unspecified; R35.0 Frequency of micturition; R05.9 Cough, unspecified; R10.9 Unspecified abdominal pain; F17.210 Nicotine dependence, cigarettes, uncomplicated
CPT/HCPCS: 71046; 74177; 80053; 81001; 82803; 83690; 85025; 86803; 87086; 87088; 87186; 87389; 87636; 96361; 96374; 99285; J2405; J7120; Q9967

== ENCOUNTER 2024-05-09 20:14 | Observation (INO) | payer MEDICARE, SELFPAY ==
[2024-05-09] VITALS (13 sets, daily range): BP systolic 142–190; BP diastolic 81–107; PULSE 100–120; RESP 16–18; TEMP 36.6–37.2; O2SAT 89–98; BMI 31.8
--- NOTE | 2024-05-09 20:40 | ECG_ITS ---
APPROVED REPORT Exam: Resting ECG HR:112 bpm ECG Measurements Heart Rate 112 AXES MS 152 P 78 QRSd 87 QRS 81 QT 314 T 69 QTc 381 Conclusion SINUS TACHYCARDIA WITH FREQUENT SUPRAVENTRICULAR PREMATURE COMPLEXES NONSPECIFIC ST & T-WAVE ABNORMALITY ABNORMAL RHYTHM ECG No STEMI Electronically signed by : ALDO ADAMSON, 05/10/2024 07:09:29
--- NOTE | 2024-05-09 20:51 | XR_ITS ---
PROCEDURE INFORMATION: Exam: XR Chest Exam date and time: 05/09/2024 8:53 PM Age: 68 years old Clinical indication: Cough; Additional info: Cough, diffuse wheeze TECHNIQUE: Imaging protocol: Radiologic exam of the chest. Views: 2 views. COMPARISON: CR XR CHEST 2V 04/11/2024 5:43 PM FINDINGS: Lungs: Unremarkable. No consolidation. Pleural spaces: Unremarkable. No pleural effusion. No pneumothorax. Heart/Mediastinum: Unremarkable. No cardiomegaly. Bones/joints: Unremarkable. IMPRESSION: No acute findings.
--- NOTE | 2024-05-09 20:54 | ED_ITS ---
Discharge Plan Disposition Patient Disposition: Admitted Chief Complaint: Upper Respiratory Infection Prescriptions Prescriptions: No Action Creon 36,000-114,000- 180,000 unit capsule,delayed release(DR/EC) 1 cap PO DAILY Patient Comments: TAKE TWO CAPSULES BY MOUTH 5 TIMES DAILY TAKE 1 CAPSULE WITH SNACKS nystatin 100,000 unit/gram cream 1 applic topical TID 7 Days Qty: 30 0RF Nizoral Psoriasis 3 % shampoo 1 applic topical .COMPLEX PRN (Reason: psoriasis) Qty: 325 0RF Rx Instructions: 1 applic topically 2 times per week PRN; lather into wet hair; leave in place for approximately 3 mins ; rinse alendronate 70 mg tablet 70 mg PO WEEKLY triamcinolone acetonide 0.1 % ointment 1 applic topical TID 10 Days Qty: 30 0RF budesonide 9 mg tablet,delayed and ext.release 9 mg PO ONCE Patient Comments: TAKE ONE TABLET BY MOUTH EVERY DAY atenolol 25 MG tablet 25 mg PO DAILY Venofer 200 mg iron/10 mL solution 200 mg IV Q3D Rx Instructions: administer over 30 mins (DME) Easy Touch Test Strip Strip See Rx Instructions .ROUTE .MEDSUPPLY Qty: 100 3RF Rx Instructions: As directed daily (DME) pen needle, diabetic [Easy Touch Pen Needle] 30 gauge x 5/16 needle See Rx Instructions .Route Qty: 100 3RF Rx Instructions: As directed calcium polycarbophil [FiberCon] 625 mg tablet 1,250 mg PO DAILY Qty: 60 0RF oxybutynin chloride 10 mg tablet extended release 24hr 10 mg PO DAILY Qty: 90 3RF trazodone 100 mg tablet See Rx Instructions .ROUTE .COMPLEX Qty: 30 2RF Dose Instruction: TAKE ONE TABLET BY MOUTH EVERY DAY AT BEDTIME Rx Instructions: TAKE ONE TABLET BY MOUTH EVERY DAY AT BEDTIME sertraline 100 mg tablet See Rx Instructions .ROUTE .COMPLEX Qty: 30 2RF Dose Instruction: TAKE ONE TABLET BY MOUTH EVERY DAY Rx Instructions: TAKE ONE TABLET BY MOUTH EVERY DAY metformin 850 mg tablet See Rx Instructions .ROUTE .COMPLEX Qty: 30 2RF Dose Instruction: TAKE ONE TABLET BY MOUTH EVERY DAY AT BEDTIME Rx Instructions: TAKE ONE TABLET BY MOUTH EVERY DAY AT BEDTIME buspirone 10 mg tablet See Rx Instructions .ROUTE .COMPLEX Qty: 60 2RF Dose Instruction: TAKE ONE TABLET BY MOUTH TWICE DAILY Rx Instructions: TAKE ONE TABLET BY MOUTH TWICE DAILY albuterol sulfate 90 mcg/actuation HFA aerosol inhaler See Rx Instructions .ROUTE .COMPLEX Qty: 8.5 2RF Dose Instruction: INHALE 2 PUFFS BY MOUTH EVERY 4 TO 6 HOURS NEEDED FOR SHORTNESS OF BREATH OR WHEEZING Rx Instructions: INHALE 2 PUFFS BY MOUTH EVERY 4 TO 6 HOURS NEEDED FOR SHORTNESS OF BREATH OR WHEEZING budesonide-formoterol [Symbicort] 80-4.5 mcg/actuation HFA aerosol inhaler See Rx Instructions .ROUTE .COMPLEX Qty: 10.2 2RF Dose Instruction: INHALE TWO PUFFS BY MOUTH EVERY TWELVE HOURS Rx Instructions: INHALE TWO PUFFS BY MOUTH EVERY TWELVE HOURS pantoprazole 40 mg tablet,delayed release (DR/EC) See Rx Instructions .ROUTE .COMPLEX Qty: 90 0RF Dose Instruction: TAKE ONE TABLET BY MOUTH DAILY Rx Instructions: TAKE ONE TABLET BY MOUTH DAILY levothyroxine 50 mcg tablet 50 mcg PO DAILY Qty: 90 0RF promethazine 25 mg tablet See Rx Instructions .ROUTE .COMPLEX Qty: 30 2RF Dose Instruction: TAKE ONE TABLET BY MOUTH TWICE DAILY NEEDED FOR NAUSEA AND VOMITING Rx Instructions: TAKE ONE TABLET BY MOUTH TWICE DAILY NEEDED FOR NAUSEA AND VOMITING potassium chloride 10 MEQ capsule, extended release 10 meq PO BID Qty: 60 3RF ciprofloxacin HCl 250 mg tablet 250 mg PO BID 3 Days Qty: 6 0RF rosuvastatin 20 MG tablet 20 mg PO HS Patient Comments: TAKE 1 TABLET BY MOUTH EVERY DAY AT BEDTIME Referrals Follow up/Referrals: Mari Carrero APRN [Primary Care Provider] - See instructions Clinical Impressions Clinical Impression: Acute exacerbation of chronic obstructive pulmonary disease (COPD), COVID-19 Print Language Print Language: Azeri Discharge ED Provider: Eusebio Rodriguez General Adult HPI General Chief complaint: Upper Respiratory Infection Stated complaint: SOA,cough,whezzy Time Seen by Provider: 05/09/24 20:40 Mode of Arrival: Ambulatory Source of Information: Patient Limitations: No Limitations Description of Symptoms (Recalled from ER Triage Doc. by RN): Patient reports wheezing and cough. States she believes she has pneumonia. States she has a cough, feels like she needs to cough something up, but cant get it up. States others in home were sick last week. History of Present Illness HPI narrative: Patient is 68-year-old female with past medical history of COPD not on home oxygen presents emergency department for evaluation of cough and shortness of breath. Positive sick contacts at home, she has had productive cough and wheezing throughout the week and feels as if it is getting worse and she has pneumonia. No chest pain at rest. She also takes water pills, no other acute complaints at this time. Please note that above description of symptoms, in this electronic medical record under categorization of recalled from ER triage doctor by RN are reflective of an initial nursing assessment, however, is not reflective of my full history and physical exam that was personally taken and clarified. Consequentially, this preceding description of symptoms, which may include the patient's categorized chief complaint in the EMR, do not reflect my personal clinical impression, and the ultimate description of history of present illness and patient stated complaints should be deferred to this section of the note. Unless stated otherwise or congruent with this section of the note, additional signs, symptoms, or incongruence should be interpreted as inaccurate with my clinical impression. Related Data Home Medications ?Medication ?Instructions ?Recorded ?Confirmed atenolol 25 mg tablet 25 mg PO DAILY Hypertension 10/05/17 05/09/24 rosuvastatin 20 mg tablet 20 mg PO HS Cholesterol 01/31/19 05/09/24 alendronate 70 mg tablet 70 mg PO WEEKLY 05/17/23 05/09/24 [id number] 1 cap PO DAILY 11/18/23 05/09/24 36,000-114,000-180,000 unit capsule,delay rel (Creon) budesonide 9 mg tablet,delayed and 9 mg PO ONCE 01/17/24 05/09/24 extended release Previous Rx's ?Medication ?Instructions ?Recorded potassium chloride 10 mEq 10 meq PO BID Supplement ##60 09/17/19 capsule,extended release iron sucrose 200 mg iron/10 mL 200 mg (10 mL) IV Q3D 5 doses 06/24/23 intravenous solution (Venofer) nystatin 100,000 unit/gram topical 1 applic topical TID 7 days #30 11/18/23 cream grams salicylic acid 3 % shampoo 1 applic topical .COMPLEX PRN 12/12/23 (Nizoral Psoriasis) psoriasis #325 mL triamcinolone acetonide 0.1 % 1 applic topical TID 10 days #30 12/26/23 topical ointment grams blood sugar diagnostic (Easy Touch #100 ea 01/13/24 Test Strip) pen needle, diabetic 30 gauge x #100 ea 01/13/24 5/16 (Easy Touch Pen Needle) calcium polycarbophil 625 mg 1,250 mg (2 x 625 mg) PO DAILY #60 01/19/24 tablet (FiberCon) tabs oxybutynin chloride 10 mg 10 mg PO DAILY #90 tabs 02/07/24 tablet,extended release 24 hr buspirone 10 mg tablet See Rx Instructions .Route 03/09/24 .COMPLEX #60 tabs metformin 850 mg tablet See Rx Instructions .Route 03/09/24 .COMPLEX #30 tabs sertraline 100 mg tablet See Rx Instructions .Route 03/09/24 .COMPLEX #30 tabs trazodone 100 mg tablet See Rx Instructions .Route 03/09/24 .COMPLEX #30 tabs albuterol sulfate 90 mcg/actuation See Rx Instructions .Route 04/05/24 aerosol inhaler .COMPLEX #8.5 grams budesonide-formoterol HFA 80 See Rx Instructions .Route 04/05/24 mcg-4.5 mcg/actuation aerosol .COMPLEX #10.2 grams inhaler (Symbicort) pantoprazole 40 mg tablet,delayed See Rx Instructions .Route 04/05/24 release .COMPLEX #90 tabs levothyroxine 50 mcg tablet 50 mcg PO DAILY Hypothyroidism #90 04/10/24 tabs ciprofloxacin HCl 250 mg tablet 250 mg PO BID 3 days #6 tabs 04/11/24 promethazine 25 mg tablet See Rx Instructions .Route 05/04/24 .COMPLEX #30 tabs Allergies Allergy/AdvReac Type Severity Reaction Status Date / Time nickel Allergy Intermediate I-RASH Verified 04/11/24 17:19 silk Allergy Mild I-RASH Verified 04/11/24 17:19 cefaclor Allergy Unknown RASH/DIFF Verified 04/11/24 17:19 BREATHING ibuprofen Allergy Unknown NA-NAUSEA/V Verified 04/11/24 17:19 OMITING levofloxacin (From Levaquin) Allergy Unknown Unknown Verified 04/11/24 17:19 allergy reaction morphine Allergy Unknown BOTTOMS Verified 04/11/24 17:19 OUT UP nitrofurantoin (From Allergy Unknown Unknown Verified 04/11/24 17:19 MACROBID) allergy reaction Sulfa (Sulfonamide Allergy Unknown Unknown Verified 04/11/24 17:19 Antibiotics) allergy reaction [facility] Disclaimer: The information contained in this section may have been updated after the patient was seen, as this information can be updated by other users. Medical History (Updated 05/09/24 @ 22:59 by Eusebio Rodriguez MD) Abdominal bloating Hypothyroidism Hypertension Type 2 diabetes mellitus Diarrhea History of COPD Pneumonia with cavity of lung Surgical History H/O left breast biopsy Hx of cholecystectomy History of Family History Sister Cancer metastasized all over body, doesn't know type or where it started. Stated it is curable Pancreatic cancer Social History Smoking Status: Current every day smoker tobacco type: cigarettes packs per day: 1 alcohol intake: never substance use type: denies use current occupational status: retired Travel in the last 8 weeks: None household members: family and friend(s) housing: house caffeine: Yes Have you lived/traveled outside [place] in past 30 days?: No Contact w/someone who lives/traveled outside US past 30 days?: No Exposure to someone with infectious disease in past 14 days?: No Do you have a fever (greater than 100.4 F or 38 C)?: No Have you tested positive for COVID-19: No Exposed to someone with COVID-19 in past 14 days?: No Do you have a sore throat?: Yes Do you have a cough?: Yes Do you have any weakness?: Yes Do you have any diarrhea?: No Are you experiencing any unusual bleeding?: No Do you have any muscle aches/pain?: No Do you have any abdominal pain?: No Are you experiencing loss of taste or smell?: No Other Medical History Have you received the Flu Vaccine for this season: No Have you received the Pneumonia Vaccine: No ROS Obtained: Yes Systems reviewed as appropriate & no additional complaints except as documented Physical Exam General General appearance: alert and in no apparent distress Head Head exam: atraumatic and normocephalic Eye Eye exam: Present PERRL ENT ENT exam: Present mucous membranes moist Neck Neck exam: Present normal inspection Chest Chest inspection: Present normal inspection and symmetric chest wall rise Respiratory Respiratory exam: Present respiratory distress, wheezes (Diffuse biphasic) and prolonged expiratory phase; Absent normal lung sounds bilaterally Cardiovascular Cardiovascular exam: Present normal rhythm and tachycardia Abdominal Exam Abdominal exam: Present soft; Absent tenderness Extremities Exam Extremities exam: Present normal inspection Neurological Exam Neurological exam: Present alert Psychiatric Psychiatric exam: Present normal affect Skin Skin exam: Present warm and dry Medical Decision Making Medical Records Screening: Per USPSTF and CDC recommendations, given the prevalence of disease in our region, it is our hospital?s policy to screen for HIV and viral Hepatitis for all patients aged 18 and over and those with ongoing risk factors. Saad Inquiry Pt receiving controlled substance: No Vital Signs: 05/09/24 20:14 05/09/24 20:45 05/09/24 21:28 Temperature 99 F Temperature Source Oral Pulse Rate 102 H 104 H Pulse Rate [Right Radial] 109 H Respiratory Rate 18 Blood Pressure 163/95 H 154/81 H Blood Pressure [Right Arm] 166/100 H Blood Pressure Mean Blood Pressure Mean [Right Arm] 122 Blood Pressure Source [Right Arm] Automatic Cuff Blood Pressure Position [Right Arm] Supine 02 Sat by Pulse Oximetry 94 L 94 L 91 L Oxygen Delivery Method Room Air Room Air Room Air 05/09/24 21:30 05/09/24 21:45 05/09/24 22:00 Temperature Temperature Source Pulse Rate 100 H 100 H 112 H Pulse Rate [Right Radial] Respiratory Rate Blood Pressure 142/95 H 147/97 H 158/88 H Blood Pressure [Right Arm] Blood Pressure Mean Blood Pressure Mean [Right Arm] Blood Pressure Source [Right Arm] Blood Pressure Position [Right Arm] 02 Sat by Pulse Oximetry 92 L 98 93 L Oxygen Delivery Method Room Air Room Air Room Air 05/09/24 22:15 05/09/24 22:30 Temperature Temperature Source Pulse Rate 120 H 108 H Pulse Rate [Right Radial] Respiratory Rate Blood Pressure 150/88 H 173/91 H Blood Pressure [Right Arm] Blood Pressure Mean 108 Blood Pressure Mean [Right Arm] Blood Pressure Source [Right Arm] Blood Pressure Position [Right Arm] 02 Sat by Pulse Oximetry 91 L 94 L Oxygen Delivery Method Room Air Room Air Lab Data Lab Results 05/09/24 20:28: WBC 5.1, RBC 5.30, Hgb 12.6, Hct 40.1, MCV 75.7 L, MCH 23.8 L, M CHC 31.4 L, RDW 17.2, Plt Count 170, MPV 9.7, Neut % (Auto) 66.0, Lymph % (Auto) 28.3, [place] % (Auto) 4.7, Eos % (Auto) 0.2, Baso % (Auto) 0.2, Neut # (Auto) 3.4, Lymph # (Auto) 1.5, [place] # (Auto) 0.2, Eos # (Auto) 0.0, Baso # (Auto) 0.0, S odium 133 L, Potassium 4.2, Chloride 99, Carbon Dioxide 22, Anion Gap 16.2 H, BUN 15, Creatinine 0.70, Estimated Creat Clear 68, Estimated GFR 83, Est GFR ( Amer) 100, Glucose 364 H, Calcium 9.8, Total Bilirubin 0.4, AST 31, ALT 28, Alkaline Phosphatase 90, Troponin I < 0.01, NT-Pro-B Natriuret Pep 66.6, Total Protein 7.8, Albumin 4.3, Globulin 3.5 H, Albumin/Globulin Ratio 1.2, S ARS-CoV-2 (PCR) Detected A, Influenza A Untype (PCR) Not detected, Influenza Type B (PCR) Not detected 05/09/24 20:51: VBG pH 7.40, VBG pCO2 34.0 L, VBG pO2 66.7 H, VBG HCO3 20.7 L, V BG Total CO2 21.8 L, VBG O2 Saturation 92.7 H, VBG Base Excess -4.0 L, VBG Lactic Acid 3.3 H 05/09/24 21:00: Lipase 68 05/09/24 20:28 05/09/24 20:28 Orders (Tests/Meds): ED MEDICATIONS Generic Name Dose Route Start Last Admin Trade Name Freq PRN Reason Stop Dose Admin Remdesivir 200 mg/ Sodium 250 mls @ 250 mls/hr 05/09/24 23:00 Chloride IV 05/09/24 23:59 ONCE ONE Lactated Ringer's 500 mls @ 999 mls/hr 05/09/24 22:50 Lactated Ringer's 500ml IV 05/09/24 23:20 .Q31M ONE Miscellaneous 1 each 05/09/24 23:00 Remdesivir Pharmacy Consult Request NOTAPPLIC 05/09/24 23:01 CONSULT PHARMACY ONE Discontinued Medications Generic Name Dose Route Start Last Admin Trade Name Scar PRN Reason Stop Dose Admin Albuterol/Ipratropium 9 ml 05/09/24 20:51 05/09/24 21:38 Ipratropium/Albuterol 3 Ml Neb IH 05/09/24 20:52 9 ml ONCE ONE Administration Magnesium Sulfate 2 gm in 50 mls @ 50 mls/hr 05/09/24 20:51 05/09/24 21:08 Magnesium Sulfate 2gm/50ml Premix IV 05/09/24 21:50 50 mls/hr ONCE ONE Administration Azithromycin 500 mg/ Sodium 250 mls @ 250 mls/hr 05/09/24 20:53 05/09/24 21:08 Chloride IV 05/09/24 20:54 250 mls/hr ONCE ONE Administration Ampicillin Sodium/Sulbactam 100 mls @ 200 mls/hr 05/09/24 21:18 05/09/24 21:22 Sodium 3 gm/ Sodium Chloride IV 05/09/24 21:19 200 mls/hr ONCE ONE Administration Iopamidol 75 ml 05/09/24 22:17 05/09/24 22:23 Iopamidol-370 (76%);100ml Bottle IV 05/09/24 22:18 75 ml ONCE ONE Administration Methylprednisolone Sodium Succinate 125 mg 05/09/24 20:51 05/09/24 21:08 Methylprednisolone Sod Succ 125mg Vial IV 05/09/24 20:52 125 mg ONCE ONE Administration Sodium Chloride 10 ml 05/09/24 22:17 05/09/24 22:23 Sodium Chloride 0.9% 10ml Syr (Rad Only) IV 05/09/24 22:18 10 ml ONCE ONE Administration ORDERS Category Date Time Status CT abdomen pelvis w con Stat Cat Scan 05/09/24 22:05 Completed CXR 2 view (NOT portable) [XR chest 2V] Stat Exams 05/09/24 20:51 Completed POCUS Point of Care (ER Only) Stat Exams 05/09/24 21:21 Completed BNP [NT Pro Brain Natriuretic Pep.] Stat Lab 05/09/24 20:28 Completed CBC w/Auto Diff [Complete Blood Count Auto Diff] Stat Lab 05/09/24 20:28 Completed CMP [Comprehensive Metabolic Panel] Stat Lab 05/09/24 20:28 Completed Lipase Stat Lab 05/09/24 21:00 Completed Rapid PCR Covid and Flu A/B Stat Lab 05/09/24 20:28 Completed Trop I [Troponin I] Stat Lab 05/09/24 20:28 Completed Troponin I Q3H Lab 05/09/24 23:52 Ordered Troponin I Q3H Lab 05/10/24 02:52 Ordered Blood Culture Stat Micro 05/09/24 21:21 Received VBG [Venous Blood Gas] Stat RT 05/09/24 20:51 Completed ECG Data Tracing #1: Independently interpreted by me rate is 112, rhythm is irregular, axis is normal, no ST elevation in anatomical contiguous leads, QTc 381. Medical Decision Narrative: In summary patient is a 68-year-old female past medical history described above presents emergency department for evaluation of shortness of breath and cough. Patient is hemodynamically stable and nontoxic-appearing upon arrival however is in low-level respiratory distress with diffuse biphasic wheezing. I suspect viral COPD exacerbation versus pneumonia. Patient was given 3 DuoNebs methylprednisolone magnesium sulfate, azithromycin. Differential also includes atypical ACS, heart failure exacerbation, among others. Workup we conducted with viral swab, two-view chest x-ray, hematologic labs. VBG reviewed by me, lactic acid 3.3, compensated acid-base status. X-ray informally interpreted by me, lower lobe pneumonia. Given that patient is allergic to cephalosporins and levofloxacin patient will be given Unasyn as the only remaining alternative per ISDA guidelines and will undergo close observation. Lactic is elevated however patient appears largely euvolemic and gentle crystalloid resuscitation will be conducted with 500 cc lactated Ringer's. No critical electrolyte abnormality although glucose is elevated there is no acidosis to indicate DKA initial troponin undetectably low. Viral swab remarkable for COVID for which pharmacy will dose remdesivir given suspected less than 7 days symptom onset. Upon repeat evaluation patient stated that she had epigastric abdominal distention that was painful for which CT abdomen pelvis was ordered Case discussed with hospital medicine regarding management they will admit the patient to their service for continued evaluation at this time. Critical Care Critical Care Time Critical Care Time: Yes Attestation: On 05/09/24, the high probability of a clinically significant, sudden or life threatening deterioration of the following system(s) required my full and direct attention, intervention and personal management. The time I documented below is in addition to time spent performing reported procedures but includes the following listed in this critical care notation. Total Time Total Critical Care Time: 40
--- NOTE | 2024-05-09 21:05 | PC.NURSE ---
Pt back from xray
[2024-05-09] MEDS: AZITHROMYCIN 500 MG in 0.9 % SODIUM CHLORIDE 250 ML 250 MG IV (21:08)
[2024-05-09] MEDS: MAGNESIUM SULFATE IN WATER 2 GM/50 ML PIGGYBACK IV (21:08)
[2024-05-09] MEDS: METHYLPREDNISOLONE SOD SUCC 125MG VIAL 125 MG IV (21:08)
[2024-05-09 21:09] LABS: Influenza A, PCR Not Detected (NotDetected); Influenza B, PCR Not Detected (NotDetected)
[2024-05-09 21:13] LABS: Basophils % 0.2 % (0.1-2.0); Eosinophils % 0.2 % (0.1-12.0); Hematocrit 40.1 % (37.0-47.0); Hemoglobin 12.6 g/dL (12.2-16.2); Lymphocytes # 1.5 K/mm3 (0.7-4.5); Lymphocytes % 28.3 % (10-50); Mean Corpuscular HGB Conc 31.4 g/dL (31.8-35.4); Mean Corpuscular Hemoglobin 23.8 pg (27.0-31.2); Mean Corpuscular Volume 75.7 fl (81-99); Mean Platelet Volume 9.7 fl (7.4-10.4); Monocytes # 0.2 K/mm3 (0.1-1.0); Monocytes % 4.7 % (1.7-9.3); Neutrophils # 3.4 K/mm3 (1.8-7.8); Platelet Count 170 K/mm3 (142-424); Red Cell Distribution Width 17.2 % (11.5-17.5); White Blood Count 5.1 K/mm3 (4.8-10.8)
[2024-05-09 21:15] LABS: VBG HCO3 20.7 mmol/L (23-30); VBG Oxygen Saturation 92.7 % (50-70); VBG PO2 66.7 mmol/L (28-40); VBG Total CO2 21.8 mmol/L (23-27)
[2024-05-09 21:16] LABS: Lactate Venous 3.3 mmol/L (0.4-2.0)
[2024-05-09 21:19] LABS: Albumin Level 4.3 g/dl (3.5-5.0); Chloride 99 mmol/L (98-107); Potassium 4.2 mmoL/L (3.5-5.1); Sodium 133 mmol/L (136-145)
[2024-05-09 21:22] LABS: Alanine Aminotransferase 28 U/L (12-78); Albumin/Globulin Ratio 1.2 (1.1-1.8); Alkaline Phosphatase 90 U/L (38-126); Anion Gap 16.2 mEq/L (5-15); Aspartate Amino Transferase 31 U/L (14-36); Bilirubin,Total 0.4 mg/dl (0.2-1.3); Blood Urea Nitrogen 15 mg/dl (7-17); Calcium 9.8 mg/dl (8.4-10.2); Carbon Dioxide 22 mmol/L (22.0-30.0); Creatinine Clearance Estimated 68 mL/min (50-200); Estimated Glomerular Filt Rate 83 ml/min (>60); GFR (African American) 100 ML/MIN (>60); Globulin 3.5 g/dL (1.3-3.2); Glucose 364 mg/dl (74-100); Total Protein,Serum 7.8 g/dl (6.3-8.2)
[2024-05-09] MEDS: AMPICILLIN/SULBACTAM 3 GM in 0.9 % SODIUM CHLORIDE 100 ML IV (21:22)
[2024-05-09 21:33] LABS: NT Pro Brain Natriuretic Pep. 66.6 pg/mL (0-125)
[2024-05-09 21:34] LABS: Coronavirus 19, PCR Detected (NotDetected)
[2024-05-09] MEDS: IPRATROPIUM/ALBUTEROL 3 ML NEB 9 ML IH (21:38)
[2024-05-09 21:39] LABS: Troponin I < 0.01 ng/ml (0.00-0.034)
--- NOTE | 2024-05-09 22:05 | CT_ITS ---
PROCEDURE INFORMATION: Exam: CT Abdomen And Pelvis With Contrast Exam date and time: 05/09/2024 10:23 PM Age: 68 years old Clinical indication: Abdominal pain; Generalized; Additional info: Abdominal distension epigastric pain TECHNIQUE: Imaging protocol: Computed tomography of the abdomen and pelvis with contrast. Radiation optimization: All CT scans at this facility use at least one of these dose optimization techniques: automated exposure control; mA and/or kV adjustment per patient size (includes targeted exams where dose is matched to clinical indication); or iterative reconstruction. Contrast material: ISOVUE; Contrast volume: 75 ml; Contrast route: IV; COMPARISON: CT ABDOMEN PELVIS W CON 04/11/2024 5:48 PM FINDINGS: Liver: Normal. No mass. Gallbladder and biliary ducts: The gallbladder is absent. Pancreas: Normal. No ductal dilation. Spleen: Normal. No splenomegaly. Adrenal glands: Normal. No mass. Kidneys and ureters: Normal. No hydronephrosis. Stomach and bowel: Unremarkable. No obstruction. No mucosal thickening. Appendix: No evidence of appendicitis. Intraperitoneal space: Unremarkable. No free air. No significant fluid collection. Vasculature: There is mild calcification of the aorta and iliac arteries. There is no aneurysm. Lymph nodes: Unremarkable. No enlarged lymph nodes. Urinary bladder: Unremarkable as visualized. Reproductive: Unremarkable as visualized. Bones/joints: Unremarkable. No acute fracture. Soft tissues: Unremarkable. IMPRESSION: No acute intra-abdominal abnormality.
[2024-05-09 22:23] LABS: Lipase 68 U/L (23-300)
[2024-05-09] MEDS: SODIUM CHLORIDE 0.9% 10ML SYR (RAD ONLY) 10 ML IV (22:23)
[2024-05-09] MEDS: IOPAMIDOL-370 (76%);100ML BOTTLE 75 ML IV (22:23)
--- NOTE | 2024-05-09 23:06 | PC.NURSE ---
house notified of plans for admission
--- NOTE | 2024-05-09 23:11 | PC.NURSE ---
Attempted to call report; floor unable to take report at this time.
--- NOTE | 2024-05-09 23:20 | PC.NURSE ---
Attempted to call report; [facility] unable to take report at this time
--- NOTE | 2024-05-09 23:23 | P.HP_ITS ---
<Statement entered by Jad Clement MD - 05/14/24 22:58> Personally evaluated patient and agree with plan of care as outlined by the BENEFITS COUNSELOR. History of Present Illness *Admission Date: 05/09/24 *Reason for visit:: Shortness of breath *History of present illness: This is a 68-year-old female who has a past medical history significant for insomnia, COPD, cervical right dermatitis, dysuria, iron deficiency anemia, osteopenia, thyroid megaly, anxiety, hypertension, diabetes type 2, and stress incontinence who presents with a chief complaint of shortness of breath, nonproductive cough, and dyspnea. Due to patient's symptoms, she presented to the emergency room for evaluation. While in emergency room, chest x-ray was negative for any acute cardiopulmonary process. CT scan of the abdomen pelvis was negative for any acute intra-abdominal or intrapelvic process. Patient did have significant wheezing, borderline hypoxemia with room air saturations in the 91-92 percentile, and she was positive for COVID. Due to these findings, patient is being admitted for further management. During my evaluation of patient, patient was in mild respiratory distress. She mentions she has been not feeling well with shortness of breath for approximately 2-3 weeks. She states that her symptomology worsened today. She reports having a nonproductive cough. Patient does endorse having some wheezing. Patient also mentions that she feels anxious. She states that she is a least a half a pack to 10 cigarettes a day smoker currently. She is currently denying any chest pain, lightheadedness, dizziness, fever, chills, rigors, nausea, vomiting, or diarrhea. Additional pertinent vitals obtained include sodium of 133, blood glucose of 364, and patient was positive for COVID pneumonitis. [facility] Disclaimer: The information contained in this section may have been updated after the patient was seen, as this information can be updated by other users. Medical History (Updated 05/09/24 @ 23:33 by Rodolfo Hdez APRN) Abdominal bloating Hypothyroidism Hypertension Type 2 diabetes mellitus Diarrhea History of COPD Pneumonia with cavity of lung Surgical History H/O left breast biopsy Hx of cholecystectomy History of Family History Sister Cancer metastasized all over body, doesn't know type or where it started. Stated it is curable Pancreatic cancer Social History Smoking Status: Current every day smoker tobacco type: cigarettes packs per day: 1 alcohol intake: never substance use type: denies use current occupational status: retired Travel in the last 8 weeks: None household members: family and friend(s) housing: house caffeine: Yes Have you lived/traveled outside [place] in past 30 days?: No Contact w/someone who lives/traveled outside [place] past 30 days?: No Exposure to someone with infectious disease in past 14 days?: No Do you have a fever (greater than 100.4 F or 38 C)?: No Have you tested positive for COVID-19: No Exposed to someone with COVID-19 in past 14 days?: No Do you have a sore throat?: Yes Do you have a cough?: Yes Do you have any weakness?: Yes Do you have any diarrhea?: No Are you experiencing any unusual bleeding?: No Do you have any muscle aches/pain?: No Do you have any abdominal pain?: No Are you experiencing loss of taste or smell?: No Other Medical History Have you received the Flu Vaccine for this season: No Have you received the Pneumonia Vaccine: No Review of Systems Review of Systems Review of systems:: pertinent systems reviewed and negative unless documented below Constitutional Constitutional: Reports system reviewed and no additional complaints, except as documented Eyes Eyes: Reports system reviewed and no additional complaints, except as documented ENT Ears, Nose, Mouth, and Throat: Reports system reviewed and no additional complaints, except as documented *Cardiovascular Cardiovascular: Reports system reviewed and no additional complaints, except as documented, Reports dyspnea and Reports dyspnea on exertion *Respiratory Respiratory: Reports cough, Reports dyspnea, Reports dyspnea on exertion and Reports wheezing *Gastrointestinal Gastrointestinal: Reports abdominal pain *Genitourinary Genitourinary: Reports system reviewed and no additional complaints, except as documented *Musculoskeletal Musculoskeletal: Reports system reviewed and no additional complaints, except as documented Integumentary/Breasts Skin/Breast: Reports system reviewed and no additional complaints, except as documented *Neurologic Neurologic: Reports system reviewed and no additional complaints, except as documented Psychiatric Psychiatric: Reports anxiety Endocrine Endocrine: Reports system reviewed and no additional complaints, except as documented Hematologic/Lymphatic Hematologic/Lymphatic: Reports system reviewed and no additional complaints, except as documented Allergic/Immunologic Allergic/Immunologic: Reports system reviewed and no additional complaints, except as documented and Reports wheezing Meds Home Medications and Allergies Home Medications ?Medication ?Instructions ?Recorded ?Confirmed ?Type atenolol 25 mg tablet 25 mg PO DAILY Hypertension 10/05/17 05/09/24 History rosuvastatin 20 mg tablet 20 mg PO HS Cholesterol 01/31/19 05/09/24 History potassium chloride 10 mEq 10 meq PO BID Supplement ##60 09/17/19 05/09/24 Rx capsule,extended release alendronate 70 mg tablet 70 mg PO WEEKLY 05/17/23 05/09/24 History iron sucrose 200 mg iron/10 mL 200 mg (10 mL) IV Q3D 5 doses 06/24/23 05/09/24 Rx intravenous solution (Venofer) uuigak-[id number] 1 cap PO DAILY 11/18/23 05/09/24 History 36,000-114,000-180,000 unit capsule,delay rel (Creon) nystatin 100,000 unit/gram topical 1 applic topical TID 7 days #30 11/18/23 05/09/24 Rx cream grams salicylic acid 3 % shampoo 1 applic topical .COMPLEX PRN 12/12/23 05/09/24 Rx (Nizoral Psoriasis) psoriasis #325 mL triamcinolone acetonide 0.1 % 1 applic topical TID 10 days #30 12/26/23 05/09/24 Rx topical ointment grams blood sugar diagnostic (Easy Touch #100 ea 01/13/24 05/09/24 Rx Test Strip) pen needle, diabetic 30 gauge x #100 ea 01/13/24 05/09/24 Rx 5/16 (Easy Touch Pen Needle) budesonide 9 mg tablet,delayed and 9 mg PO ONCE 01/17/24 05/09/24 History extended release calcium polycarbophil 625 mg 1,250 mg (2 x 625 mg) PO DAILY #60 01/19/24 05/09/24 Rx tablet (FiberCon) tabs oxybutynin chloride 10 mg 10 mg PO DAILY #90 tabs 02/07/24 05/09/24 Rx tablet,extended release 24 hr buspirone 10 mg tablet See Rx Instructions .Route 03/09/24 05/09/24 Rx .COMPLEX #60 tabs metformin 850 mg tablet See Rx Instructions .Route 03/09/24 05/09/24 Rx .COMPLEX #30 tabs sertraline 100 mg tablet See Rx Instructions .Route 03/09/24 05/09/24 Rx .COMPLEX #30 tabs trazodone 100 mg tablet See Rx Instructions .Route 03/09/24 05/09/24 Rx .COMPLEX #30 tabs albuterol sulfate 90 mcg/actuation See Rx Instructions .Route 04/05/24 05/09/24 Rx aerosol inhaler .COMPLEX #8.5 grams budesonide-formoterol HFA 80 See Rx Instructions .Route 04/05/24 05/09/24 Rx mcg-4.5 mcg/actuation aerosol .COMPLEX #10.2 grams inhaler (Symbicort) pantoprazole 40 mg tablet,delayed See Rx Instructions .Route 04/05/24 05/09/24 Rx release .COMPLEX #90 tabs levothyroxine 50 mcg tablet 50 mcg PO DAILY Hypothyroidism #90 04/10/24 05/09/24 Rx tabs ciprofloxacin HCl 250 mg tablet 250 mg PO BID 3 days #6 tabs 04/11/24 05/09/24 Rx promethazine 25 mg tablet See Rx Instructions .Route 05/04/24 05/09/24 Rx .COMPLEX #30 tabs New Prescriptions to Start Prescriptions: Allergies Allergy/AdvReac Type Severity Reaction Status Date / Time nickel Allergy Intermediate I-RASH Verified 04/11/24 17:19 silk Allergy Mild I-RASH Verified 04/11/24 17:19 cefaclor Allergy Unknown RASH/DIFF Verified 04/11/24 17:19 BREATHING ibuprofen Allergy Unknown NA-NAUSEA/V Verified 04/11/24 17:19 OMITING levofloxacin (From Levaquin) Allergy Unknown Unknown Verified 04/11/24 17:19 allergy reaction morphine Allergy Unknown BOTTOMS Verified 04/11/24 17:19 OUT UP nitrofurantoin (From Allergy Unknown Unknown Verified 04/11/24 17:19 MACROBID) allergy reaction Sulfa (Sulfonamide Allergy Unknown Unknown Verified 04/11/24 17:19 Antibiotics) allergy reaction Exam Data for Last 24 hours Vital signs and Labs for Last 24 Hours: Temp Pulse Resp BP Pulse Ox O2 Del Method 99 F 109 H 18 161/99 H 91 L Room Air 05/09/24 20:14 05/09/24 23:00 05/09/24 20:14 05/09/24 23:00 05/09/24 23:00 05/09/24 23:00 Laboratory Results - last 24 hr 05/09/24 20:28: WBC 5.1, RBC 5.30, Hgb 12.6, Hct 40.1, MCV 75.7 L, MCH 23.8 L, MCHC 31.4 L, RDW 17.2, Plt Count 170, MPV 9.7, Neut % (Auto) 66.0, Lymph % (Auto) 28.3, [place] % (Auto) 4.7, Eos % (Auto) 0.2, Baso % (Auto) 0.2, Neut # (Auto) 3.4, Lymph # (Auto) 1.5, [place] # (Auto) 0.2, Eos # (Auto) 0.0, Baso # (Auto) 0.0, Sodium 133 L, Potassium 4.2, Chloride 99, Carbon Dioxide 22, Anion Gap 16.2 H, BUN 15, Creatinine 0.70, Estimated Creat Clear 68, Estimated GFR 83, Est GFR ( Amer) 100, Glucose 364 H, Calcium 9.8, Total Bilirubin 0.4, AST 31, ALT 28, Alkaline Phosphatase 90, Troponin I < 0.01, NT-Pro-B Natriuret Pep 66.6, Total Protein 7.8, Albumin 4.3, Globulin 3.5 H, Albumin/Globulin Ratio 1.2, SARS-CoV-2 (PCR) Detected A, Influenza A Untype (PCR) Not detected, Influenza Type B (PCR) Not detected 05/09/24 20:51: VBG pH 7.40, VBG pCO2 34.0 L, VBG pO2 66.7 H, VBG HCO3 20.7 L, VBG Total CO2 21.8 L, VBG O2 Saturation 92.7 H, VBG Base Excess -4.0 L, VBG Lactic Acid 3.3 H 05/09/24 21:00: Lipase 68 I & O for Last 24 hours: Intake & Output 05/06/24 05/07/24 05/08/24 05/09/24 23:59 23:59 23:59 23:59 Weight 81.647 kg Constitutional Constitutional: mild distress *Routine HEENT Exam Head: Present normocephalic and atraumatic Eye: Present EOMI, PERRL and normal accommodation ENT: Present mucous membranes moist *Routine Neck Exam Neck: Present supple and full ROM *Routine Respiratory Exam Respiratory: Present respiratory distress and wheezes Comments: Expiratory wheezing *Routine Cardiovascular Exam Cardiovascular: Present RRR, Normal S1 and tachycardia *Routine Abdominal Exam Abdominal: Present soft and normoactive bowel sounds *Routine Rectal Exam Rectal:: deferred *Routine Genitalia Exam Genitalia:: deferred *Routine Extremities Exam Extremities: Present full ROM and normal capillary refill Routine Back/Spine/Pelvis Exam Back/Spine: Present full ROM *Routine Skin Exam Skin: Present intact, dry and warm *Routine Neurological Exam Neurological: Present alert, oriented X3, CN II-XII intact and moving all extremities Routine Psychiatric Exam Psychiatric: Present normal affect, normal thought process, cooperative, good insight, good judgment and anxious H&P: Result Impressions This is a 68-year-old female who has a past medical history significant for COPD who presents with increased workload of breathing, shortness of breath, and dyspnea. Patient was positive for COVID more than likely she has viral induced COPD exacerbation Assessment and Plan *Assessment and plan (1) COVID-19: Status: Acute Category: Medical Code(s): U07.1 - COVID-19 (2) Acute exacerbation of chronic obstructive pulmonary disease (COPD): Status: Acute Category: Medical Code(s): J44.1 - Chronic obstructive pulmonary disease with (acute) exacerbation (3) Anxiety: Status: Acute Category: Medical Code(s): F41.9 - Anxiety disorder, unspecified (4) Hyperglycemia: Status: Acute Category: Medical Code(s): R73.9 - Hyperglycemia, unspecified Plan Assessment: COVID pneumonitis/COPD exacerbation: Patient is borderline hypoxic -Initiate remdesivir pharmacy to dose -6 mg of dexamethasone p.o. daily -, Inhaler 4 times daily -Albuterol inhaler 2 puffs every 4 hours as needed shortness of breath -Pulmicort 1 puff twice daily Microcytosis -Patient has known iron deficiency anemia Hyperglycemia: Most likely in the setting of type 2 diabetes -Sliding scale insulin before meals and at bedtime with moderate sliding scale coverage Anxiety -Hydroxyzine 50 mg p.o. 3 times daily as needed anxiety Plan: Admit patient to the MedSurg unit Vital signs every 4 hours Cardiac/1800 ADA diet Obtain D-dimer in a.m. Procalcitonin CBC/CMP daily Tessalon Perles 200 mg 3 times daily as needed cough 100 mg doxycycline p.o. twice daily-to cover atypical microorganisms for COPD exacerbation 5 mg [place] p.o. every 4 hours for moderate pain 21 mg nicotine patch daily Full code I will discuss this case with attending physician Dr. Clement and a look forward to more input
--- NOTE | 2024-05-09 23:43 | PC.NURSE ---
pt arrived to floor from ed via wheelchair at [id number].
[2024-05-10] VITALS: BP 124/60; PULSE 95; RESP 15; TEMP 37.2; O2SAT 93
[2024-05-10 00:32] LABS: Reflex Lactic Add Lactic Reflex
[2024-05-10] MEDS: RINGERS SOLUTION,LACTATED 500 ML 999 ML IV (01:03)
[2024-05-10 01:20] LABS: Lactic Acid Follow Up (RFLX 1) 2.2 mmol/L (0.7-2.1)
[2024-05-10 01:32] LABS: Troponin I < 0.01 ng/ml (0.00-0.034)
[2024-05-10 03:00] LABS: Reflex Lactic (2 hrs) Add Lactic Reflex
[2024-05-10] MEDS: REMDESIVIR 200 MG in 0.9 % SODIUM CHLORIDE 250 ML 250 MG IV (03:13)
[2024-05-10] MEDS: HYDROCODONE/APAP 5/325 MG TABLET 1 TAB PO ×2 (03:18→13:20)
[2024-05-10 03:34] LABS: Lactic Acid Follow up (RFLX 2) 1.4 mmol/L (0.7-2.1)
[2024-05-10 03:55] LABS: Troponin I < 0.01 ng/ml (0.00-0.034)
[2024-05-10 04:00] VITALS: BP 146/79; PULSE 93; RESP 18; TEMP 37.1; O2SAT 97; BMI 34.3
[2024-05-10 06:00] LABS: Hematocrit 35.5 % (37.0-47.0); Lymphocytes # 0.5 K/mm3 (0.7-4.5); Lymphocytes % 13.4 % (10-50); Mean Corpuscular HGB Conc 30.7 g/dL (31.8-35.4); Mean Corpuscular Hemoglobin 23.9 pg (27.0-31.2); Mean Corpuscular Volume 77.9 fl (81-99); Mean Platelet Volume 9.5 fl (7.4-10.4); Monocytes # 0.1 K/mm3 (0.1-1.0); Monocytes % 1.8 % (1.7-9.3); Neutrophils # 2.8 K/mm3 (1.8-7.8); Neutrophils % 83.6 % (37.0-80.0); Platelet Count 152 K/mm3 (142-424); Red Blood Count 4.56 M/mm3 (4.20-5.40); Red Cell Distribution Width 17.4 % (11.5-17.5); White Blood Count 3.4 K/mm3 (4.8-10.8)
--- NOTE | 2024-05-10 06:02 | PC.NURSE ---
0600 fsbg read HI. ordered random glucose and notified lab per protocol. waiting for results.
[2024-05-10 06:08] LABS: Alanine Aminotransferase 27 U/L (12-78); Albumin Level 3.7 g/dl (3.5-5.0); Albumin/Globulin Ratio 1.4 (1.1-1.8); Alkaline Phosphatase 76 U/L (38-126); Anion Gap 11.8 mEq/L (5-15); Aspartate Amino Transferase 28 U/L (14-36); Bilirubin,Total 0.3 mg/dl (0.2-1.3); Blood Urea Nitrogen 14 mg/dl (7-17); Calcium 8.6 mg/dl (8.4-10.2); Carbon Dioxide 24 mmol/L (22.0-30.0); Chloride 100 mmol/L (98-107); Creatinine Clearance Estimated 74 mL/min (50-200); Estimated Glomerular Filt Rate 71 ml/min (>60); GFR (African American) 86 ML/MIN (>60); Globulin 2.7 g/dL (1.3-3.2); Potassium 4.8 mmoL/L (3.5-5.1); Sodium 131 mmol/L (136-145); Total Protein,Serum 6.4 g/dl (6.3-8.2)
[2024-05-10 06:19] LABS: Glucose 612 mg/dl (74-100)
[2024-05-10] MEDS: humaLOG 100 UNITS/ML 10ML VIAL (SSI) SUBCUT ×2 (06:38→11:16)
[2024-05-10 07:31] LABS: Procalcitonin 0.059 ng/mL (0.0-2.0)
[2024-05-10 07:53] LABS: D-Dimer 0.37 ug/mL (0.0-0.5)
[2024-05-10 08:00] VITALS: BP 127/63; PULSE 68; RESP 16; TEMP 36.6; O2SAT 96
[2024-05-10] MEDS: DOXYCYCLINE HYCL 100 MG TABLET PO (08:19)
[2024-05-10] MEDS: DEXAMETHASONE 4MG TABLET 6 MG PO (08:19)
[2024-05-10] MEDS: FLUTICASONE HFA 110MCG INHALER 2 PUFF IH (08:46)
[2024-05-10 08:47] VITALS: O2SAT 95
--- NOTE | 2024-05-10 08:50 | HMH.PHAINT1 ---
Pharmacy Intervention Comments: HOME MEDICATION LIST VERIFIED USING LIST FROM OUTPATIENT PHARMACY
[2024-05-10] MEDS: INSULIN GLARGINE 100 UNITS/ML 10ML VIAL 15 UNIT SUBCUT (08:52)
[2024-05-10] MEDS: METFORMIN 850 MG PO (08:52)
[2024-05-10] MEDS: BENZONATATE 100MG CAPSULE 200 MG PO (08:52)
[2024-05-10] MEDS: COMBIVENT 20MCG/100MCG RESPIMAT INHALER 1 PUFF IH (11:27)
[2024-05-10 11:49] LABS: POC Glucose,Bedside 344 (70-110)
[2024-05-10 12:00] VITALS: BP 126/74; PULSE 69; RESP 17; TEMP 36.6; O2SAT 96
[2024-05-10 12:15] VITALS: PULSE 76; RESP 16
--- NOTE | 2024-05-10 14:40 | EXP.DC.SUM ---
General Admission date:: 05/09/24 HPI HPI HPI: This is a 68-year-old female who has a past medical history significant for insomnia, COPD, cervical right dermatitis, dysuria, iron deficiency anemia, osteopenia, thyroid megaly, anxiety, hypertension, diabetes type 2, and stress incontinence who presents with a chief complaint of shortness of breath, nonproductive cough, and dyspnea. Due to patient's symptoms, she presented to the emergency room for evaluation. While in emergency room, chest x-ray was negative for any acute cardiopulmonary process. CT scan of the abdomen pelvis was negative for any acute intra-abdominal or intrapelvic process. Patient did have significant wheezing, borderline hypoxemia with room air saturations in the 91-92 percentile, and she was positive for COVID. Due to these findings, patient is being admitted for further management. During my evaluation of patient, patient was in mild respiratory distress. She mentions she has been not feeling well with shortness of breath for approximately 2-3 weeks. She states that her symptomology worsened today. She reports having a nonproductive cough. Patient does endorse having some wheezing. Patient also mentions that she feels anxious. She states that she is a least a half a pack to 10 cigarettes a day smoker currently. She is currently denying any chest pain, lightheadedness, dizziness, fever, chills, rigors, nausea, vomiting, or diarrhea. Additional pertinent vitals obtained include sodium of 133, blood glucose of 364, and patient was positive for COVID pneumonitis. Hospital Course Hospital Course Hospital Course: Maricel Dominguez is a 68-year-old female who presented with shortness of breath and was admitted for COPD exacerbation, COVID-19. #COPD exacerbation #COVID-19 ? Clinically improved with DuoNebs, Pulmicort, steroids, doxycycline. ? Initially started on remdesivir, dexamethasone but but discontinued as patient remained on room air. Also had hyperglycemia in 600s due to dexamethasone, improved. ? Discharged with doxycycline, prednisone. Will follow-up with PCP within 2 weeks. ? Continue home Symbicort. #Type 2 diabetes ? Hemoglobin A1c 6.8. ? Hyperglycemia in 600s due to dexamethasone, improved to 300s. ? Continue home metformin a 50 mg daily. #Hypothyroidism ?Continue home levothyroxine 50 mcg. Exam Data for Last 24 hours Vital signs and Labs for Last 24 Hours: Temp Pulse Resp BP Pulse Ox O2 Del Method 98 F 76 16 127/63 95 Room Air 05/10/24 08:00 05/10/24 12:15 05/10/24 12:15 05/10/24 08:00 05/10/24 08:47 05/10/24 13:00 Laboratory Results - last 24 hr 05/09/24 20:28: WBC 5.1, RBC 5.30, Hgb 12.6, Hct 40.1, MCV 75.7 L, MCH 23.8 L, MCHC 31.4 L, RDW 17.2, Plt Count 170, MPV 9.7, Neut % (Auto) 66.0, Lymph % (Auto) 28.3, Jackson % (Auto) 4.7, Eos % (Auto) 0.2, Baso % (Auto) 0.2, Neut # (Auto) 3.4, Lymph # (Auto) 1.5, Jackson # (Auto) 0.2, Eos # (Auto) 0.0, Baso # (Auto) 0.0, Sodium 133 L, Potassium 4.2, Chloride 99, Carbon Dioxide 22, Anion Gap 16.2 H, BUN 15, Creatinine 0.70, Estimated Creat Clear 68, Estimated GFR 83, Est GFR ( Amer) 100, Glucose 364 H, Calcium 9.8, Total Bilirubin 0.4, AST 31, ALT 28, Alkaline Phosphatase 90, Troponin I < 0.01, NT-Pro-B Natriuret Pep 66.6, Total Protein 7.8, Albumin 4.3, Globulin 3.5 H, Albumin/Globulin Ratio 1.2, SARS-CoV-2 (PCR) Detected A, Influenza A Untype (PCR) Not detected, Influenza Type B (PCR) Not detected 05/09/24 20:51: VBG pH 7.40, VBG pCO2 34.0 L, VBG pO2 66.7 H, VBG HCO3 20.7 L, VBG Total CO2 21.8 L, VBG O2 Saturation 92.7 H, VBG Base Excess -4.0 L, VBG Lactic Acid 3.3 H 05/09/24 21:00: Lipase 68 05/10/24 00:50: Lactate 2.2 H, Troponin I < 0.01 05/10/24 03:06: Lactate 1.4, Troponin I < 0.01 05/10/24 05:49: WBC 3.4 L D, RBC 4.56, Hgb 11.0 L D, Hct 35.5 L, MCV 77.9 L, MCH 23.9 L, MCHC 30.7 L, RDW 17.4, Plt Count 152, MPV 9.5, Neut % (Auto) 83.6 H, Lymph % (Auto) 13.4, Jackson % (Auto) 1.8, Eos % (Auto) 0.0 L, Baso % (Auto) 0.0 L, Neut # (Auto) 2.8, Lymph # (Auto) 0.5 L, Jackson # (Auto) 0.1, Eos # (Auto) 0.0, Baso # (Auto) 0.0, D-Dimer 0.37, Sodium 131 L, Potassium 4.8, Chloride 100, Carbon Dioxide 24, Anion Gap 11.8, BUN 14, Creatinine 0.80, Estimated Creat Clear 74, Estimated GFR 71, Est GFR ( Amer) 86, Glucose 612 H* D, Calcium 8.6, Total Bilirubin 0.3, AST 28, ALT 27, Alkaline Phosphatase 76, Total Protein 6.4, Albumin 3.7 D, Globulin 2.7, Albumin/Globulin Ratio 1.4, Procalcitonin 0.059 05/10/24 11:13: POC Glucose 344 H* I & O for Last 24 hours: Intake & Output 05/07/24 05/08/24 05/09/24 05/10/24 23:59 23:59 23:59 23:59 Intake Total 500 / 500 Output Total 1300 / 1300 Balance -800 / -800 Weight 81.647 kg 87.997 kg Constitutional Constitutional: no acute distress and obese *Routine HEENT Exam Head: Present normocephalic Eye: Present EOMI and PERRL ENT: Present mucous membranes moist *Routine Neck Exam Neck: Present supple; Absent lymphadenopathy *Routine Respiratory Exam Respiratory: Present CTA bilaterally *Routine Cardiovascular Exam Cardiovascular: Present RRR *Routine Abdominal Exam Abdominal: Present soft and normoactive bowel sounds; Absent tenderness *Routine Extremities Exam Extremities: Absent cyanosis, clubbing or edema *Routine Skin Exam Skin: Present warm; Absent rash *Routine Neurological Exam Neurological: Present alert and oriented X3 Results Data Completed and Pending Labs on day of discharge: Labs from last 24 hours 05/10/24 05/10/24 05/10/24 11:13 05:49 03:06 WBC 3.4 L D RBC 4.56 Hgb 11.0 L D Hct 35.5 L MCV 77.9 L MCH 23.9 L MCHC 30.7 L RDW 17.4 Plt Count 152 MPV 9.5 Neut % (Auto) 83.6 H Lymph % (Auto) 13.4 Jackson % (Auto) 1.8 Eos % (Auto) 0.0 L Baso % (Auto) 0.0 L Neut # (Auto) 2.8 Lymph # (Auto) 0.5 L Jackson # (Auto) 0.1 Eos # (Auto) 0.0 Baso # (Auto) 0.0 D-Dimer 0.37 VBG pH VBG pCO2 VBG pO2 VBG HCO3 VBG Total CO2 VBG O2 Saturation VBG Base Excess VBG Lactic Acid Sodium 131 L Potassium 4.8 Chloride 100 Carbon Dioxide 24 Anion Gap 11.8 BUN 14 Creatinine 0.80 Estimated Creat Clear 74 Estimated GFR 71 Est GFR ( Amer) 86 Glucose 612 H* D POC Glucose 344 H* Lactate 1.4 Calcium 8.6 Total Bilirubin 0.3 AST 28 ALT 27 Alkaline Phosphatase 76 Troponin I < 0.01 NT-Pro-B Natriuret Pep Total Protein 6.4 Albumin 3.7 D Globulin 2.7 Albumin/Globulin Ratio 1.4 Lipase Procalcitonin 0.059 SARS-CoV-2 (PCR) Influenza A Untype (PCR) Influenza Type B (PCR) 05/10/24 05/09/24 05/09/24 00:50 21:00 20:51 WBC RBC Hgb Hct MCV MCH MCHC RDW Plt Count MPV Neut % (Auto) Lymph % (Auto) Jackson % (Auto) Eos % (Auto) Baso % (Auto) Neut # (Auto) Lymph # (Auto) Jackson # (Auto) Eos # (Auto) Baso # (Auto) D-Dimer VBG pH 7.40 VBG pCO2 34.0 L VBG pO2 66.7 H VBG HCO3 20.7 L VBG Total CO2 21.8 L VBG O2 Saturation 92.7 H VBG Base Excess -4.0 L VBG Lactic Acid 3.3 H Sodium Potassium Chloride Carbon Dioxide Anion Gap BUN Creatinine Estimated Creat Clear Estimated GFR Est GFR ( Amer) Glucose POC Glucose Lactate 2.2 H Calcium Total Bilirubin AST ALT Alkaline Phosphatase Troponin I < 0.01 NT-Pro-B Natriuret Pep Total Protein Albumin Globulin Albumin/Globulin Ratio Lipase 68 Procalcitonin SARS-CoV-2 (PCR) Influenza A Untype (PCR) Influenza Type B (PCR) 05/09/24 20:28 WBC 5.1 RBC 5.30 Hgb 12.6 Hct 40.1 MCV 75.7 L MCH 23.8 L MCHC 31.4 L RDW 17.2 Plt Count 170 MPV 9.7 Neut % (Auto) 66.0 Lymph % (Auto) 28.3 Jackson % (Auto) 4.7 Eos % (Auto) 0.2 Baso % (Auto) 0.2 Neut # (Auto) 3.4 Lymph # (Auto) 1.5 Jackson # (Auto) 0.2 Eos # (Auto) 0.0 Baso # (Auto) 0.0 D-Dimer VBG pH VBG pCO2 VBG pO2 VBG HCO3 VBG Total CO2 VBG O2 Saturation VBG Base Excess VBG Lactic Acid Sodium 133 L Potassium 4.2 Chloride 99 Carbon Dioxide 22 Anion Gap 16.2 H BUN 15 Creatinine 0.70 Estimated Creat Clear 68 Estimated GFR 83 Est GFR ( Amer) 100 Glucose 364 H POC Glucose Lactate Calcium 9.8 Total Bilirubin 0.4 AST 31 ALT 28 Alkaline Phosphatase 90 Troponin I < 0.01 NT-Pro-B Natriuret Pep 66.6 Total Protein 7.8 Albumin 4.3 Globulin 3.5 H Albumin/Globulin Ratio 1.2 Lipase Procalcitonin SARS-CoV-2 (PCR) Detected A Influenza A Untype (PCR) Not detected Influenza Type B (PCR) Not detected DS: Diagnosis Discharge Diagnosis (1) COVID-19: Status: Acute Code(s): U07.1 - COVID-19 (2) Acute exacerbation of chronic obstructive pulmonary disease (COPD): Status: Acute Code(s): J44.1 - Chronic obstructive pulmonary disease with (acute) exacerbation (3) Anxiety: Status: Acute Code(s): F41.9 - Anxiety disorder, unspecified (4) Hyperglycemia: Status: Acute Code(s): R73.9 - Hyperglycemia, unspecified Meds Home Medications and Allergies Home Medications ?Medication ?Instructions ?Recorded ?Confirmed ?Type atenolol 25 mg tablet 25 mg PO DAILY 10/05/17 05/09/24 History rosuvastatin 20 mg tablet 20 mg PO HS 01/31/19 05/09/24 History alendronate 70 mg tablet 70 mg PO WEEKLY 05/17/23 05/10/24 History blood sugar diagnostic (Easy Touch #100 ea 01/13/24 05/09/24 Rx Test Strip) pen needle, diabetic 30 gauge x #100 ea 01/13/24 05/09/24 Rx 5/16 (Easy Touch Pen Needle) budesonide 9 mg tablet,delayed and 9 mg PO DAILY 01/17/24 05/10/24 History extended release calcium polycarbophil 625 mg 1,250 mg (2 x 625 mg) PO DAILY #60 01/19/24 05/09/24 Rx tablet (FiberCon) tabs oxybutynin chloride 10 mg 10 mg PO DAILY #90 tabs 02/07/24 05/09/24 Rx tablet,extended release 24 hr albuterol sulfate 90 mcg/actuation 2 puff inhalation Q4-6H PRN 05/10/24 05/10/24 History aerosol inhaler Shortness Of Breath budesonide-formoterol HFA 80 2 puff inhalation BID 05/10/24 05/10/24 History mcg-4.5 mcg/actuation aerosol inhaler (Symbicort) buspirone 10 mg tablet 10 mg PO BID 05/10/24 05/10/24 History doxycycline hyclate 100 mg tablet 100 mg PO BID 4 days #8 tabs 05/10/24 Rx levothyroxine 50 mcg tablet 50 mcg PO DAILY 05/10/24 05/09/24 History metformin 850 mg tablet 850 mg PO HS 05/10/24 05/10/24 History pantoprazole 40 mg tablet,delayed 40 mg PO HS 05/10/24 05/10/24 History release potassium chloride 10 mEq 10 meq PO BID 05/10/24 05/09/24 History capsule,extended release prednisone 20 mg tablet 20 mg PO DAILY 4 days #4 tabs 05/10/24 Rx promethazine 25 mg tablet 25 mg PO BID PRN Nausea And 05/10/24 05/10/24 History Vomiting sertraline 100 mg tablet 100 mg PO DAILY 05/10/24 05/10/24 History trazodone 100 mg tablet 100 mg PO HS 05/10/24 05/10/24 History New Prescriptions to Start Prescriptions: doxycycline hyclate Mirianmiltonkingsley,Jad prednisone Pidchandni,Jad Allergies Allergy/AdvReac Type Severity Reaction Status Date / Time nickel Allergy Intermediate I-RASH Verified 04/11/24 17:19 silk Allergy Mild I-RASH Verified 04/11/24 17:19 cefaclor Allergy Unknown RASH/DIFF Verified 04/11/24 17:19 BREATHING ibuprofen Allergy Unknown NA-NAUSEA/V Verified 04/11/24 17:19 OMITING levofloxacin (From Levaquin) Allergy Unknown Unknown Verified 04/11/24 17:19 allergy reaction morphine Allergy Unknown BOTTOMS Verified 04/11/24 17:19 OUT UP nitrofurantoin (From Allergy Unknown Unknown Verified 04/11/24 17:19 MACROBID) allergy reaction Sulfa (Sulfonamide Allergy Unknown Unknown Verified 04/11/24 17:19 Antibiotics) allergy reaction Discharge Plan Disposition Patient Disposition: Home, Self-Care Condition: Fair Follow up Plan Follow up with: Mari Carrero APRN [Primary Care Provider] - 05/18/24 3:15 pm Prescriptions/Medication Reconciliation: New doxycycline hyclate 100 mg Tablet 100 mg PO BID 4 Days Qty: 8 0RF prednisone 20 mg tablet 20 mg PO DAILY 4 Days Qty: 4 0RF Continued alendronate 70 mg tablet 70 mg PO WEEKLY budesonide 9 mg tablet,delayed and ext.release 9 mg PO DAILY Patient Comments: TAKE ONE TABLET BY MOUTH EVERY DAY atenolol 25 MG tablet 25 mg PO DAILY (DME) Easy Touch Test Strip Strip See Rx Instructions .ROUTE .MEDSUPPLY Qty: 100 3RF Rx Instructions: As directed daily (DME) pen needle, diabetic [Easy Touch Pen Needle] 30 gauge x 5/16 needle See Rx Instructions .Route Qty: 100 3RF Rx Instructions: As directed calcium polycarbophil [FiberCon] 625 mg tablet 1,250 mg PO DAILY Qty: 60 0RF oxybutynin chloride 10 mg tablet extended release 24hr 10 mg PO DAILY Qty: 90 3RF albuterol sulfate 90 mcg/actuation HFA aerosol inhaler 2 puff inhalation Q4-6H PRN (Reason: Shortness Of Breath) Rx Instructions: INHALE 2 PUFFS BY MOUTH EVERY 4 TO 6 HOURS NEEDED FOR SHORTNESS OF BREATH OR WHEEZING metformin 850 mg tablet 850 mg PO HS pantoprazole 40 mg tablet,delayed release (DR/EC) 40 mg PO HS potassium chloride 10 MEQ capsule, extended release 10 meq PO BID sertraline 100 mg tablet 100 mg PO DAILY trazodone 100 mg tablet 100 mg PO HS Rx Instructions: TAKE ONE TABLET BY MOUTH EVERY DAY AT BEDTIME levothyroxine 50 mcg tablet 50 mcg PO DAILY buspirone 10 mg tablet 10 mg PO BID promethazine 25 mg tablet 25 mg PO BID PRN (Reason: Nausea And Vomiting) budesonide-formoterol [Symbicort] 80-4.5 mcg/actuation HFA aerosol inhaler 2 puff inhalation BID rosuvastatin 20 MG tablet 20 mg PO HS Patient Comments: TAKE 1 TABLET BY MOUTH EVERY DAY AT BEDTIME Problem Reconciliation Problems Reviewed?: Yes Patient Discharge Instructions Print Language: Icelandic Providers Primary Care Provider: Mari Carrero Admit Provider: Jad Clement Attending Provider: Jad Clement
--- NOTE | 2024-05-14 12:37 | SW/DCPLANNER ---
Spoke with patient on the phone. Patient stated that she feels better but still has it. Patient stated that she is aware of her upcoming appointment. Patient stated that she is aware of her new medicine and that she did not want it because it is a steriod. Patient stated that she has no concerns or questions. Benji Geller
== END 2024-05-10 15:50 | disposition home or self-care (01) ==
LOC: ER 22:58 → 2ND 05-10 04:54
PROVIDERS: Nurse Practitioner Family; Admitting Provider Student in an Organized Health Care Education/Training Program; Emergency Provider Emergency Medicine; PCP Nurse Practitioner Family; Visit Provider Student in an Organized Health Care Education/Training Program
DX: U07.1 COVID-19 (principal); J44.1 Chronic obstructive pulmonary disease with (acute) exacerbation; F41.9 Anxiety disorder, unspecified; E11.65 Type 2 diabetes mellitus with hyperglycemia; F17.210 Nicotine dependence, cigarettes, uncomplicated; I10 Essential (primary) hypertension; E03.9 Hypothyroidism, unspecified; N39.3 Stress incontinence (female) (male); D50.9 Iron deficiency anemia, unspecified; Z79.899 Other long term (current) drug therapy; Z88.2 Allergy status to sulfonamides; Z88.1 Allergy status to other antibiotic agents; Z88.8 Allergy status to other drugs, medicaments and biological substances; Z88.5 Allergy status to narcotic agent; Z79.51 Long term (current) use of inhaled steroids; Z79.4 Long term (current) use of insulin; Z79.84 Long term (current) use of oral hypoglycemic drugs; Z80.9 Family history of malignant neoplasm, unspecified
CPT/HCPCS: 36415; 71046; 74177; 80053; 82803; 82962; 83605; 83690; 83880; 84145; 84484; 85025; 85378; 87040; 87636; 93005; 94640; 99291; G0378; J0295; J0456; J2919; J3475; J7050; J7120; J7620; J8540; Q9967

== ENCOUNTER 2024-06-04 12:59 | Outpatient (CLI) | payer MEDICARE, SELFPAY ==
[2024-06-04 14:17] LABS: Albumin Level 4.4 g/dl (3.5-5.0); Chloride 106 mmol/L (98-107); Potassium 4.4 mmoL/L (3.5-5.1); Sodium 137 mmol/L (136-145)
[2024-06-04 14:20] LABS: Alanine Aminotransferase 21 U/L (12-78); Albumin/Globulin Ratio 1.6 (1.1-1.8); Alkaline Phosphatase 69 U/L (38-126); Anion Gap 13.4 mEq/L (5-15); Aspartate Amino Transferase 23 U/L (14-36); Bilirubin,Total 0.6 mg/dl (0.2-1.3); Blood Urea Nitrogen 14 mg/dl (7-17); Calcium 10.4 mg/dl (8.4-10.2); Carbon Dioxide 22 mmol/L (22.0-30.0); Cholesterol 175 mg/dl (140-200); Estimated Glomerular Filt Rate 83 ml/min (>60); GFR (African American) 100 ML/MIN (>60); Globulin 2.8 g/dL (1.3-3.2); Glucose 252 mg/dl (74-100); Total Protein,Serum 7.2 g/dl (6.3-8.2); Triglycerides 254 mg/dl (30-150); VLDL Cholesterol 51 mg/dL (0-40)
[2024-06-04 14:21] LABS: Chol/HDL Ratio 3.1 (1-3.5); HDL Cholesterol 57 mg/dl (40-60)
[2024-06-04 14:32] LABS: Direct LDL Cholesterol 75.58 mg/dL (100-129)
[2024-06-04 14:52] LABS: Thyroid Stimulating Hormone 2.72 uIU/mL (0.465-4.68)
[2024-06-04 15:55] LABS: Hemoglobin A1C 13.2 % (4.0-6.0)
[2024-06-04 15:58] LABS: Creatinine,Urine Random 62 mg/dL (Not Estab.)
[2024-06-04 16:00] LABS: Microalbumin/Creatinine Ratio 16.9
[2024-06-05 12:11] LABS: C-Peptide 4.6 ng/mL (1.1-4.4); Insulin Level Total 16.9 uIU/mL (2.6-24.9)
== END 2024-06-04 23:59 | disposition home or self-care (01) ==
LOC: LAB 12:59
PROVIDERS: PCP Nurse Practitioner Family; Visit Provider Nurse Practitioner Family
DX: E11.69 Type 2 diabetes mellitus with other specified complication (principal); E03.9 Hypothyroidism, unspecified
CPT/HCPCS: 36415; 80053; 80061; 82043; 82570; 83036; 83525; 84443; 84681

== ENCOUNTER 2024-06-20 16:00 | Outpatient (CLI) | payer MEDICARE, SELFPAY | END 2024-06-20 23:59 | disposition home or self-care (01) | LOC: LAB.DROPOF 06-21 09:16 | PROVIDERS: PCP Nurse Practitioner Family; Visit Provider Nurse Practitioner Family | DX: N39.0 Urinary tract infection, site not specified (principal); B96.20 Unspecified Escherichia coli [E. coli] as the cause of diseases classified elsewhere | CPT/HCPCS: 87086; 87088; 87186 ==

== ENCOUNTER 2024-07-16 14:57 | Outpatient (CLI) | payer MEDICARE, SELFPAY ==
--- OUTSIDE RECORDS SUMMARY | 2024-07-17 10:34 | XMS_ITS | Continuity of Care Document ---
Author Organization [facility]. If a dditional information is needed, contact Health Information Management at [phone] [place] [address] Phone Care Team Providers Care Ballistics Expert Forensic Name Role Phone Unavailable Unavailable Unavailable Unavailable Unavailable Unavailable Unavailable Unavailable Unavailable Unavailable Unavailable Problems Acetaminophen overdose Onset:16-Jul-2022 Yovani Helms MD Status:Acute Suicide attempt Onset:16-Jul-2022 Yovani Helms MD Status:Acute Acute hepatic failure due to drugs Onset:16-Jul-2022 Yovani Helms MD Status:Acute Bradycardia Onset:16-Jul-2022 Yovani Helms MD Status:Acute Hypertensive disorder Onset:16-Jul-2022 Yovani Helms MD Status:Acute Diabetes mellitus Onset:16-Jul-2022 Yovani Helms MD Status:Acute Depressive disorder Onset:16-Jul-2022 Yovani Helms MD Status:Acute Gastroesophageal reflux dise ase Onset:16-Jul-2022 Yovani Helms MD Status:Acute Functional Status Functional finding 16-Jul-2022 Functional finding 16-Jul-2022 Functional finding 16-Jul-2022 Allergies and Adverse Reactions Sulfa (Sulfonamide Antibiotics)(Allergy) Onset: 16-Jul-2022 Reaction:Rash-Unknown morphine(Allergy) Onset: 16-Jul-2022 Reaction:Unknown ibuprofen(Allergy) Onset: 16-Jul-2022 Reaction:Nausea Vomiting Cefaclor(Allergy) Onset: 16-Jul-2022 Reaction:Difficulty Breathin g Nitrofurantoin(Allergy) Onset: 16-Jul-2022 Reaction:Unknown Levofloxacin(Allergy) Onset: 16-Jul-2022 Reaction:Unknown Nickel(Allergy) Onset: 16-Jul-2022 Reaction:Rash-Unknown silk(Allergy) Onset: 16-Jul-2022 Reaction:Rash-Unknown surgical steel(Allergy) Onset: 16-Jul-2022 Reaction:Rash-Unknown Medications atenolol 25 MG Oral Tablet;2 5 MG ORAL Daily Start:16-Jul-2022 Comments:25 mg PO DAILY sertraline 50 MG Oral Tablet ;50 MG ORAL Daily Start:16-Jul-2022 Comments:50 mg PO DAILY omeprazole 40 MG Delayed Rel ease Oral Capsule;40 MG ORAL Two Times a Day Start:16-Jul-2022 Comments:40 mg PO BID traZODone hydrochloride;300 MG ORAL At Bedtime Start:16-Jul-2022 Comments:300 mg PO BEDTIME [id number];50 0 MG ORAL At Bedtime Start:16-Jul-2022 Comments:500 mg PO BEDTIME rosuvastatin 20 mg tablet;20 MG ORAL At Bedtime Start:16-Jul-2022 Comments:20 mg PO BEDTIME Valium;10 MG ORAL Three Time s a Day Start:16-Jul-2022 Comments:10 mg PO TID As Needed for Anxiety furosemide 40 MG Oral Tablet ;60 MG ORAL QAM Start:16-Jul-2022 Comments:60 mg PO QAM Decara;1250 MCG ORAL Weekly Start:16-Jul-2022 Comments:1250 mcg PO WEEKLY levothyroxine sodium 0.05 MG Oral Tablet [Synthroid];50 MCG ORAL Daily Start:16-Jul-2022 Comments:50 mcg PO DAILY polyethylene glycol 3350 17 gram/dose oral powder;17 G ORAL Daily Start:16-Jul-2022 Comments:17 g PO DAILY [id number];1 SPRA Y Intranasal Daily Start:16-Jul-2022 Comments:1 spray INTRANASAL DAILY
== END 2024-07-16 23:59 | disposition home or self-care (01) ==
LOC: LAB.DROPOF 07-17 10:33
PROVIDERS: PCP Nurse Practitioner Family; Visit Provider Nurse Practitioner Family
DX: R10.9 Unspecified abdominal pain (principal)
CPT/HCPCS: 87086; 87088

== ENCOUNTER 2024-07-29 00:46 | Emergency (ER) | payer MEDICARE, SELFPAY ==
[2024-07-29] VITALS (11 sets, daily range): BP systolic 120–150; BP diastolic 69–130; PULSE 61–73; RESP 16–18; TEMP 36.9–37.2; O2SAT 92–97; BMI 74.5
--- NOTE | 2024-07-29 01:02 | XR_ITS ---
PROCEDURE INFORMATION: Exam: XR Chest Exam date and time: 07/29/2024 2:24 AM Age: 69 years old Clinical indication: Other: Epigastric pain TECHNIQUE: Imaging protocol: Radiologic exam of the chest. Views: 1 view. COMPARISON: CR XR CHEST 2V 05/09/2024 8:53 PM FINDINGS: Lungs: Unremarkable. No consolidation. Pleural spaces: Unremarkable. No pleural effusion. No pneumothorax. Heart/Mediastinum: Unremarkable. No cardiomegaly. Bones/joints: Unremarkable. IMPRESSION: No acute findings.
--- NOTE | 2024-07-29 01:02 | CT_ITS ---
PROCEDURE INFORMATION: Exam: CTA Abdomen and Pelvis With Contrast Exam date and time: 07/29/2024 2:07 AM Age: 69 years old Clinical indication: Abdominal pain; Epigastric; Additional info: Epigastric pain radiating to back, chronic, worse TECHNIQUE: Imaging protocol: Computed tomographic angiography of the abdomen and pelvis with contrast. Exam focused on the arteries. 3D rendering (Not supervised by radiologist): MIP and/or 3D reconstructed images were created by the technologist. Radiation optimization: All CT scans at this facility use at least one of these dose optimization techniques: automated exposure control; mA and/or kV adjustment per patient size (includes targeted exams where dose is matched to clinical indication); or iterative reconstruction. Contrast material: ISOUVE 370; Contrast volume: 80 ml; Contrast route: INTRAVENOUS (IV); COMPARISON: CT ABDOMEN PELVIS W CON 05/09/2024 10:23 PM FINDINGS: Aorta: No aortic aneurysm. No aortic dissection. Atherosclerotic calcification. Celiac trunk and mesenteric arteries: No occlusion or significant stenosis. Ostial atherosclerotic calcification. Renal arteries: No occlusion or significant stenosis. Ostial atherosclerotic calcification. Right iliac arteries: No occlusion or significant stenosis. Atherosclerotic calcification. Left iliac arteries: No occlusion or significant stenosis. Atherosclerotic calcification. Liver: No mass. Gallbladder and biliary ducts: Surgically absent gallbladder. No biliary ductal dilatation. Pancreas: Unremarkable. No mass. No ductal dilation. Spleen: Unremarkable. No splenomegaly. Adrenal glands: Unremarkable. No mass. Kidneys and ureters: Unremarkable. No solid mass. No hydronephrosis. Stomach and bowel: Unremarkable. No obstruction. No mucosal thickening. Appendix: No evidence of appendicitis. Intraperitoneal space: Unremarkable. No free air. No significant fluid collection. Lymph nodes: Unremarkable. No enlarged lymph nodes. Urinary bladder: Unremarkable. No mass. Reproductive: Unremarkable as visualized. Bones/joints: No acute fracture. Soft tissues: Unremarkable. IMPRESSION: No acute findings identified.
[2024-07-29] MEDS: BELLADONNA ALKALOIDS 60 ML ML PO (01:20)
[2024-07-29] MEDS: ONDANSETRON 4MG/2ML VIAL 4 MG IV (01:21)
[2024-07-29 01:25] LABS: Basophils % 0.5 % (0.1-2.0); Eosinophils % 0.2 % (0.1-12.0); Hemoglobin 11.4 g/dL (12.2-16.2); Immature Granulocytes # 0.05 10^3uL; Immature Granulocytes % 0.6 %; Lymphocytes % 36.9 % (10-50); Mean Corpuscular Hemoglobin 22.4 pg (27.0-31.2); Mean Corpuscular Volume 74.7 fl (81-99); Mean Platelet Volume 9.8 fl (7.4-10.4); Monocytes # 0.4 K/mm3 (0.1-1.0); Monocytes % 4.7 % (1.7-9.3); Neutrophils # 4.7 K/mm3 (1.8-7.8); Neutrophils % 57.1 % (37.0-80.0); Nucleated Red Blood Cells # 0 10^3/uL; Nucleated Red Blood Cells % 0 %; Platelet Count 208 K/mm3 (142-424); Red Blood Count 5.09 M/mm3 (4.20-5.40); Red Cell Distribution Width 17.5 % (11.5-17.5); Red Cell Distribution Width-SD 46.3 fL; White Blood Count 8.2 K/mm3 (4.8-10.8)
[2024-07-29 01:30] LABS: Albumin Level 4.3 g/dl (3.5-5.0); Chloride 106 mmol/L (98-107)
[2024-07-29 01:31] LABS: Potassium 4.5 mmoL/L (3.5-5.1); Sodium 136 mmol/L (136-145)
[2024-07-29 01:33] LABS: Alanine Aminotransferase 22 U/L (12-78); Albumin/Globulin Ratio 1.3 (1.1-1.8); Alkaline Phosphatase 58 U/L (38-126); Anion Gap 12.5 mEq/L (5-15); Aspartate Amino Transferase 25 U/L (14-36); Bilirubin,Total 0.3 mg/dl (0.2-1.3); Blood Urea Nitrogen 20 mg/dl (7-17); Carbon Dioxide 22 mmol/L (22.0-30.0); Creatinine Clearance Estimated 43 mL/min (50-200); Estimated Glomerular Filt Rate 71 ml/min (>60); GFR (African American) 86 ML/MIN (>60); Globulin 3.4 g/dL (1.3-3.2); Total Protein,Serum 7.7 g/dl (6.3-8.2)
[2024-07-29 01:34] LABS: Calcium 9.8 mg/dl (8.4-10.2); Glucose 261 mg/dl (74-100); Lipase 72 U/L (23-300)
[2024-07-29 01:35] LABS: INR 0.96 (0.9-1.1); Prothrombin Time 10.7 seconds (10.1-12.5)
--- NOTE | 2024-07-29 01:35 | ECG_ITS ---
APPROVED REPORT Exam: Resting ECG HR:68 bpm ECG Measurements Heart Rate 68 AXES MN 169 P 7 QRSd 91 QRS -8 QT 414 T 29 QTc 431 Conclusion SINUS RHYTHM MINIMAL VOLTAGE CRITERIA FOR LVH, CONSIDER NORMAL VARIANT [MEETS CRITERIA IN ONE OF: R(aVL), S(V1), R(V5), R(V5/V6)+S(V1)] No STEMI Electronically signed by : ALDO ADAMSON, 07/29/2024 06:14:13
[2024-07-29 01:47] LABS: Troponin I < 0.01 ng/ml (0.00-0.034)
--- NOTE | 2024-07-29 02:04 | ED_ITS ---
Discharge Plan Disposition Patient Disposition: Home, Self-Care Condition: Good Prescriptions Prescriptions: New sucralfate 100 mg/mL suspension 1 g PO Q6H 14 Days Qty: 560 0RF No Action ciprofloxacin HCl 500 mg tablet 500 mg PO BID 7 Days Qty: 14 0RF alendronate 70 mg tablet 70 mg PO WEEKLY budesonide 9 mg tablet,delayed and ext.release 9 mg PO DAILY Patient Comments: TAKE ONE TABLET BY MOUTH EVERY DAY insulin glargine U-300 conc [Toujeo SoloStar U-300 Insulin] 300 unit/mL (1.5 mL) insulin pen 10 unit SQ DAILY 30 Days Qty: 4.5 0RF (DME) pen needle, diabetic [Easy Comfort Pen [place]] 32 gauge x 5/32 needle See Rx Instructions .Route Qty: 100 3RF Rx Instructions: As directed methocarbamol 750 mg tablet 750 mg PO TID PRN (Reason: muscle relaxer) Qty: 30 0RF clobetasol [Olux] 0.05 % foam 1 applic topical BID 14 Days Qty: 100 0RF (DME) Easy Touch Test Strip Strip See Rx Instructions .ROUTE .MEDSUPPLY Qty: 100 3RF Rx Instructions: As directed daily (DME) pen needle, diabetic [Easy Touch Pen Needle] 30 gauge x 5/16 needle See Rx Instructions .Route Qty: 100 3RF Rx Instructions: As directed calcium polycarbophil [FiberCon] 625 mg tablet 1,250 mg PO DAILY Qty: 60 0RF oxybutynin chloride 10 mg tablet extended release 24hr 10 mg PO DAILY Qty: 90 3RF dapagliflozin propanediol [Farxiga] 10 mg tablet 10 mg PO DAILY Qty: 90 3RF sertraline 100 mg tablet See Rx Instructions .ROUTE .COMPLEX Qty: 30 2RF Dose Instruction: TAKE ONE TABLET BY MOUTH EVERY DAY Rx Instructions: TAKE ONE TABLET BY MOUTH EVERY DAY metformin 850 mg tablet See Rx Instructions .ROUTE .COMPLEX Qty: 30 2RF Dose Instruction: TAKE ONE TABLET BY MOUTH EVERY DAY AT BEDTIME Rx Instructions: TAKE ONE TABLET BY MOUTH EVERY DAY AT BEDTIME buspirone 10 mg tablet See Rx Instructions .ROUTE .COMPLEX Qty: 60 2RF Dose Instruction: TAKE ONE TABLET BY MOUTH TWICE DAILY Rx Instructions: TAKE ONE TABLET BY MOUTH TWICE DAILY potassium chloride 10 mEq capsule, extended release See Rx Instructions .ROUTE .COMPLEX Qty: 60 2RF Dose Instruction: TAKE ONE CAPSULE BY MOUTH TWICE DAILY Rx Instructions: TAKE ONE CAPSULE BY MOUTH TWICE DAILY nystatin 100,000 unit/gram cream 1 applic topical TID 14 Days Qty: 90 0RF atenolol 25 mg tablet See Rx Instructions .ROUTE .COMPLEX Qty: 90 0RF Dose Instruction: TAKE ONE TABLET BY MOUTH EVERY DAY Rx Instructions: TAKE ONE TABLET BY MOUTH EVERY DAY rosuvastatin 20 mg tablet See Rx Instructions .ROUTE .COMPLEX Qty: 90 0RF Dose Instruction: TAKE ONE TABLET BY MOUTH EVERY DAY AT BEDTIME Rx Instructions: TAKE ONE TABLET BY MOUTH EVERY DAY AT BEDTIME budesonide-formoterol [Symbicort] 80-4.5 mcg/actuation HFA aerosol inhaler 2 puff inhalation BID Qty: 30 1RF pantoprazole 40 mg tablet,delayed release (DR/EC) See Rx Instructions .ROUTE .COMPLEX Qty: 90 0RF Dose Instruction: TAKE ONE TABLET BY MOUTH EVERY DAY Rx Instructions: TAKE ONE TABLET BY MOUTH EVERY DAY levothyroxine 50 mcg tablet See Rx Instructions .ROUTE .COMPLEX Qty: 90 0RF Dose Instruction: TAKE ONE TABLET BY MOUTH EVERY DAY FOR hypothyroidism Rx Instructions: TAKE ONE TABLET BY MOUTH EVERY DAY FOR hypothyroidism albuterol sulfate 90 mcg/actuation HFA aerosol inhaler See Rx Instructions .ROUTE .COMPLEX Qty: 8.5 2RF Dose Instruction: INHALE 2 PUFFS BY MOUTH EVERY 4 TO 6 HOURS NEEDED FOR SHORTNESS OF BREATH OR WHEEZING Rx Instructions: INHALE 2 PUFFS BY MOUTH EVERY 4 TO 6 HOURS NEEDED FOR SHORTNESS OF BREATH OR WHEEZING promethazine 25 mg tablet See Rx Instructions .ROUTE .COMPLEX Qty: 30 0RF Dose Instruction: TAKE ONE TABLET BY MOUTH TWICE DAILY NEEDED FOR NAUSEA AND VOMITING MAY CAUSE DROWSINESS Rx Instructions: TAKE ONE TABLET BY MOUTH TWICE DAILY NEEDED FOR NAUSEA AND VOMITING MAY CAUSE DROWSINESS Referrals Follow up/Referrals: Mari Carrero APRN [Primary Care Provider] - See instructions Activity Restrictions/Add. Instructions Additional Instructions/Restrictions: You were evaluated in the ER and are believed to be appropriate for discharge at this time. Continue taking your home medications as previously prescribed. Take the prescribed sucralfate as directed. Make an appointment with your primary care doctor for reevaluation in a few days. Also call your specialist Dr. Granados to reschedule follow-up. Return to the ER with any new, worsening, or otherwise concerning symptoms. Clinical Impressions Clinical Impression: Epigastric abdominal pain Instructions Patient Instructions: DI for Acute Abdominal Pain Print Language Print Language: Jordanian Discharge ED Provider: Real Reyes General Adult HPI General Chief complaint: Abdominal Pain Stated complaint: Stomach pain Time Seen by Provider: 07/29/24 01:02 Mode of Arrival: Wheelchair Source of Information: Patient Description of Symptoms (Recalled from ER Triage Doc. by RN): Pt reports abdominal pain in through the back which has been ongoing for approx 2-3 years. Pt reports the pain is worse in the last 2 hours. Pt reports she has been seen by multiple doctors and have not been able to figure out what her problem is. Pt reports pain 10/21 History of Present Illness HPI narrative: 69-year-old female presents to the ER with epigastric abdominal pain radiating through to the back. Patient and family at bedside report her pain has been going on for the last 2 to 3 years. Patient has been seen by multiple doctors, facilities, specialists, none of whom have been able to specifically diagnose her with an exact cause of her symptoms. Reportedly at one time they thought she had a severe stool bowel blockage and may need surgery for it so she was put on oral medications but her symptoms have persisted despite this. Apparently tonight her symptoms were worse than normal especially in the last 2 to 3 hours prior to arrival. She has not had any tearing sensation, chest pain, numbness, tingling, weakness, dizziness, or vomiting. She does have nausea. Patient states she alternates between constipation and diarrhea. She states she had 2 good bowel movements today. Nonbloody, nonmelanotic. Family at bedside reports pancreatitis does run in the family. No interventions prior to arrival. Patient does report a history of COPD. She states she still smokes and I will smoke until the day I . She additionally has a history of type 2 diabetes, hypothyroid, hypertension, lung nodules, among others. Related Data Home Medications ?Medication ?Instructions ?Recorded ?Confirmed alendronate 70 mg tablet 70 mg PO WEEKLY 05/17/23 07/16/24 budesonide 9 mg tablet,delayed and 9 mg PO DAILY 01/17/24 07/16/24 extended release Previous Rx's ?Medication ?Instructions ?Recorded blood sugar diagnostic (Easy Touch #100 ea 01/13/24 Test Strip) pen needle, diabetic 30 gauge x #100 ea 01/13/24 5/16 (Easy Touch Pen Needle) calcium polycarbophil 625 mg 1,250 mg (2 x 625 mg) PO DAILY #60 01/19/24 tablet (FiberCon) tabs oxybutynin chloride 10 mg 10 mg PO DAILY #90 tabs 02/07/24 tablet,extended release 24 hr dapagliflozin propanediol 10 mg 10 mg PO DAILY #90 tabs 05/28/24 tablet (Farxiga) insulin glargine U-300 conc 300 10 unit (0.0333 mL) SQ DAILY 30 05/30/24 unit/mL (1.5 mL) subcutaneous pen days #4.5 mL (Toujeo SoloStar U-300 Insulin) pen needle, diabetic 32 gauge x #100 ea 05/30/24 (Easy Comfort Pen [place]) buspirone 10 mg tablet See Rx Instructions .Route 06/01/24 .COMPLEX #60 tabs metformin 850 mg tablet See Rx Instructions .Route 06/01/24 .COMPLEX #30 tabs potassium chloride 10 mEq See Rx Instructions .Route 06/01/24 capsule,extended release .COMPLEX #60 caps sertraline 100 mg tablet See Rx Instructions .Route 06/01/24 .COMPLEX #30 tabs nystatin 100,000 unit/gram topical 1 applic topical TID 14 days #90 06/15/24 cream grams clobetasol 0.05 % topical foam 1 applic topical BID 2 weeks #100 06/20/24 (Olux) grams methocarbamol 750 mg tablet 750 mg PO TID PRN muscle relaxer 06/20/24 #30 tabs atenolol 25 mg tablet See Rx Instructions .Route 07/02/24 .COMPLEX #90 tabs budesonide-formoterol HFA 80 2 puff inhalation BID #30 grams 07/02/24 mcg-4.5 mcg/actuation aerosol inhaler (Symbicort) pantoprazole 40 mg tablet,delayed See Rx Instructions .Route 07/02/24 release .COMPLEX #90 tabs rosuvastatin 20 mg tablet See Rx Instructions .Route 07/02/24 .COMPLEX #90 tabs levothyroxine 50 mcg tablet See Rx Instructions .Route 07/09/24 .COMPLEX #90 tabs ciprofloxacin HCl 500 mg tablet 500 mg PO BID 7 days #14 tabs 07/16/24 albuterol sulfate 90 mcg/actuation See Rx Instructions .Route 07/18/24 aerosol inhaler .COMPLEX #8.5 grams promethazine 25 mg tablet See Rx Instructions .Route 07/23/24 .COMPLEX #30 tabs sucralfate 100 mg/mL oral 1 g (10 mL) PO Q6H 2 weeks #560 mL 07/29/24 suspension Allergies Allergy/AdvReac Type Severity Reaction Status Date / Time nickel Allergy Intermediate I-RASH Verified 07/16/24 14:47 silk Allergy Mild I-RASH Verified 07/16/24 14:47 cefaclor Allergy Unknown RASH/DIFF Verified 07/16/24 14:47 BREATHING ibuprofen Allergy Unknown NA-NAUSEA/V Verified 07/16/24 14:47 OMITING levofloxacin (From Levaquin) Allergy Unknown Unknown Verified 07/16/24 14:47 allergy reaction morphine Allergy Unknown BOTTOMS Verified 07/16/24 14:47 OUT UP nitrofurantoin (From Allergy Unknown Unknown Verified 07/16/24 14:47 MACROBID) allergy reaction Sulfa (Sulfonamide Allergy Unknown Unknown Verified 07/16/24 14:47 Antibiotics) allergy reaction PFSH PFSH Disclaimer: The information contained in this section may have been updated after the patient was seen, as this information can be updated by other users. Medical History (Updated 07/29/24 @ 03:58 by Real Reyes MD) Left flank pain Seborrheic dermatitis of scalp UTI (urinary tract infection) Hyperglycemia COVID-19 Acute exacerbation of chronic obstructive pulmonary disease (COPD) Acute cystitis Gastroenteritis due to norovirus Lymphocytic colitis Generalized abdominal pain Insomnia Increased urinary frequency Upper abdominal pain Abdominal cramping Dysuria Muscle cramping Constipation by delayed colonic transit Oral candidiasis Vomiting General weakness Colitis Colon wall thickening Abdominal pain ROM (right otitis media) Nausea Panic attack Chest pain Opioid overdose Shortness of breath Elevated erythrocyte sedimentation rate Asymptomatic COVID-19 virus infection Sebaceous cyst of labia UTI (urinary tract infection), bacterial Gram-negative bacterial infection Lower extremity edema Vomiting and diarrhea Chest pain Hypoxia Obesity Hypoxemia Community acquired pneumonia Acute exacerbation of chronic obstructive airways disease Bladder spasms Stress incontinence Abdominal pain Abdominal bloating Hypothyroidism Hypertension Type 2 diabetes mellitus Diarrhea History of COPD Pneumonia with cavity of lung Surgical History H/O left breast biopsy Hx of cholecystectomy History of Family History Sister Cancer metastasized all over body, doesn't know type or where it started. Stated it is curable Pancreatic cancer Social History Smoking Status: Current every day smoker tobacco type: cigarettes packs per day: 1 alcohol intake: never substance use type: denies use current occupational status: retired Travel in the last 8 weeks?: None household members: family and friend(s) housing: house caffeine: Yes Have you lived/traveled outside [place] in past 30 days?: No Contact w/someone who lives/traveled outside US past 30 days?: No Exposure to someone with infectious disease in past 14 days?: No Do you have a fever (greater than 100.4 F or 38 C)?: No Have you tested positive for COVID-19?: No Exposed to someone with COVID-19 in past 14 days?: No Do you have a sore throat?: No Do you have a cough?: No Do you have any weakness?: No Do you have any diarrhea?: No Are you experiencing any unusual bleeding?: No Do you have any muscle aches/pain?: No Do you have any abdominal pain?: No Are you experiencing loss of taste or smell?: No Other Medical History Have you received the Flu Vaccine for this season: No Have you received the Pneumonia Vaccine: No ROS Obtained: Yes Systems reviewed as appropriate & no additional complaints except as documented Per HPI Physical Exam General General appearance: alert Comment: Appears uncomfortable but nontoxic; chronically ill appearing Head Head exam: atraumatic and normocephalic Eye Eye exam: Present PERRL and EOMI ENT ENT exam: Present mucous membranes moist Neck Neck exam: Present normal inspection and full ROM Chest Chest inspection: Present symmetric chest wall rise Respiratory Respiratory exam: Present wheezes (Bilateral end expiratory) and other (Saturating 97% on room air); Absent normal lung sounds bilaterally, respiratory distress or stridor Cardiovascular Cardiovascular exam: Present regular rate and normal rhythm Abdominal Exam Abdominal exam: Present soft, tenderness (Moderate epigastric) and guarding (Voluntary); Absent distention, rebound or rigidity Extremities Exam Extremities exam: Present full ROM Neurological Exam Neurological exam: Present alert and oriented X3; Absent motor sensory deficit Psychiatric Psychiatric exam: Present normal affect and normal mood Skin Skin exam: Present warm and dry Medical Decision Making Medical Records Medical records reviewed: Yes I reviewed the patient's medical records. Screening: Per USPSTF and CDC recommendations, given the prevalence of disease in our region, it is our hospital?s policy to screen for HIV and viral Hepatitis for all patients aged 18 and over and those with ongoing risk factors. Saad Inquiry Pt receiving controlled substance: No Vital Signs: 07/29/24 01:01 07/29/24 01:07 07/29/24 01:30 Temperature 98.4 F 98.4 F Temperature Source Oral Oral Pulse Rate 73 69 Pulse Rate [Left] 73 Respiratory Rate 18 18 Blood Pressure 139/77 150/72 H Blood Pressure [Right Arm] 138/77 Blood Pressure Mean [Right Arm] 97 Blood Pressure Source Automatic Cuff Blood Pressure Source [Right Arm] Automatic Cuff Blood Pressure Position Sitting Blood Pressure Position [Right Arm] Sitting 02 Sat by Pulse Oximetry 97 97 93 L Oxygen Delivery Method Room Air Room Air Oxygen Flow Rate (LPM) 07/29/24 02:06 07/29/24 02:30 07/29/24 03:00 Temperature Temperature Source Pulse Rate 64 69 61 Pulse Rate [Left] Respiratory Rate Blood Pressure 147/86 H 139/69 131/74 Blood Pressure [Right Arm] Blood Pressure Mean [Right Arm] Blood Pressure Source Blood Pressure Source [Right Arm] Blood Pressure Position Blood Pressure Position [Right Arm] 02 Sat by Pulse Oximetry 94 L 94 L 92 L Oxygen Delivery Method Oxygen Flow Rate (LPM) 07/29/24 03:30 07/29/24 04:13 07/29/24 04:30 Temperature Temperature Source Pulse Rate 69 61 68 Pulse Rate [Left] Respiratory Rate 16 Blood Pressure 120/75 138/77 148/78 H Blood Pressure [Right Arm] Blood Pressure Mean [Right Arm] Blood Pressure Source Automatic Cuff Blood Pressure Source [Right Arm] Blood Pressure Position Blood Pressure Position [Right Arm] 02 Sat by Pulse Oximetry 92 L 95 97 Oxygen Delivery Method Room Air Oxygen Flow Rate (LPM) 07/29/24 04:43 Temperature 98.9 F Temperature Source Oral Pulse Rate 68 Pulse Rate [Left] Respiratory Rate 18 Blood Pressure 148/78 H Blood Pressure [Right Arm] Blood Pressure Mean [Right Arm] Blood Pressure Source Automatic Cuff Blood Pressure Source [Right Arm] Blood Pressure Position Blood Pressure Position [Right Arm] 02 Sat by Pulse Oximetry Oxygen Delivery Method Room Air Oxygen Flow Rate (LPM) 98 Lab Data Lab Results 07/29/24 01:16: WBC 8.2, RBC 5.09, Hgb 11.4 L, Hct 38.0, MCV 74.7 L, MCH 22.4 L, MCHC 30.0 L, RDW 17.5, Plt Count 208, MPV 9.8, Neut % (Auto) 57.1, Lymph % (Auto) 36.9, [place] % (Auto) 4.7, Eos % (Auto) 0.2, Baso % (Auto) 0.5, Neut # (Auto) 4.7, Lymph # (Auto) 3.0, [place] # (Auto) 0.4, Eos # (Auto) 0.0, Baso # (Auto) 0.0, PT 10.7, INR 0.96, Sodium 136, Potassium 4.5, Chloride 106, Carbon Dioxide 22, Anion Gap 12.5, BUN 20 H, Creatinine 0.80, Estimated Creat Clear 43, Estimated GFR 71, Est GFR ( Amer) 86, Glucose 261 H, Calcium 9.8, Total Bilirubin 0.3, AST 25, ALT 22, Alkaline Phosphatase 58, Troponin I < 0.01, Total Protein 7.7, Albumin 4.3, Globulin 3.4 H, Albumin/Globulin Ratio 1.3, Lipase 72 07/29/24 02:00: Urine Color Yellow, Urine Appearance Clear, Urine pH 5.5, Ur Specific [place]iona 1.020, Urine Protein Negative, Urine Glucose (UA) 3+, Urine Ketones Negative, Urine Blood Negative, Urine Nitrate Positive A, Urine Bilirubin Negative, Urine Urobilinogen 0.2, Ur Leukocyte Esterase Negative, Urine RBC None, Urine WBC 5-10, Ur Squamous Epith Cells Occasional, Urine Bacteria 1+ 07/29/24 03:51: Troponin I < 0.01 07/29/24 01:16 07/29/24 01:16 Orders (Tests/Meds): ED MEDICATIONS Generic Name Dose Route Start Last Admin Trade Name Freq PRN Reason Stop Dose Admin Sodium Chloride 10 ml 07/29/24 02:36 07/29/24 02:37 Sodium Chloride 0.9% 10ml Syr (Rad Only) IV 08/28/24 02:35 10 ml NEEDED PRN Administration Maintain IV Site Discontinued Medications Generic Name Dose Route Start Last Admin Trade Name Freq PRN Reason Stop Dose Admin Belladonna Alkaloids 60 ml 07/29/24 01:02 07/29/24 01:20 Belladonna Alkaloids 60 Ml Ml PO 07/29/24 01:03 60 ml ONCE ONE Administration Lactated Ringer's 500 mls @ 999 mls/hr 07/29/24 02:36 07/29/24 03:40 Lactated Ringer's 500ml IV 07/29/24 03:06 999 mls/hr .Q31M ONE Administration Iopamidol 80 ml 07/29/24 02:36 07/29/24 02:37 Iopamidol-370 (76%);100ml Bottle IV 07/29/24 02:37 80 ml ONCE ONE Administration Ondansetron HCl 4 mg 07/29/24 01:02 07/29/24 01:21 Ondansetron 4mg/2ml Vial IV 07/29/24 01:03 4 mg ONCE ONE Administration Sodium Chloride 40 ml 07/29/24 02:36 07/29/24 02:37 0.9 % Sodium Chloride 50 Ml Vial IV 07/29/24 02:37 40 ml ONCE ONE Administration ORDERS Category Date Time Status CT angio abdomen pelvis Stat Cat Scan 07/29/24 01:02 Completed XR chest portable Stat Exams 07/29/24 01:02 Completed Complete Blood Count Auto Diff Stat Lab 07/29/24 01:16 Completed Comprehensive Metabolic Panel Stat Lab 07/29/24 01:16 Completed Lactic Acid Stat Lab 07/29/24 01:02 Ordered Lipase Stat Lab 07/29/24 01:16 Completed Prothrombin Time INR Stat Lab 07/29/24 01:16 Completed Troponin I Q3H Lab 07/29/24 03:51 Completed Troponin I Q3H Lab 07/29/24 07:15 Ordered Troponin I Stat Lab 07/29/24 01:16 Completed Urinalysis and Microscopic Stat Lab 07/29/24 02:00 Completed Urine Culture Stat Micro 07/29/24 02:00 Received Medical Decision Narrative: In summary, this 69-year-old female with comorbidities described in the HPI which may not be at goal therapy presents to the emergency department today with epigastric abdominal pain radiating through to her back, this is a chronic problem for the last 2 to 3 years but is an exacerbation tonight. On initial evaluation patient is hemodynamically stable, afebrile, chronically ill- appearing, nontoxic, exam is notable for end expiratory wheezes consistent with patient's continued tobacco use and known history of COPD, she is oxygenating well and I do not have concerns for acute COPD exacerbation, she does have tenderness to palpation of the epigastric region with voluntary guarding, no rebound, no abdominal distention. Remainder of exam unremarkable. Differential diagnosis includes but is not limited to hiatal hernia, pancreatitis, esophageal spasm, ulcer, atypical presentation of ACS, I considered the possibility of dissection or aortic aneurysm as well as mesenteric ischemia but I have lower suspicion for these since this seems to be a chronic problem and exacerbation tonight. I have also reviewed patient's previous records which demonstrates she was seen in the ER in April for similar complaints and her CT imaging at that time had no acute intra-abdominal pathology. Ruling out the most morbid conditions drove my assessment. Serum labs, cardiac workup, CT imaging were ordered. ECG personally interpreted demonstrates normal sinus rhythm, rate 68, normal axis, normal RI and QTc, no STEMI. Patient received Zofran, GI cocktail initially for treatment. Labs personally reviewed demonstrate no leukocytosis, mild anemia, normal platelets, PT/INR normal, CMP with mild prerenal azotemia, patient is receiving IV fluids. No transaminitis, undetectable initial troponin, lipase 72 reassuring against pancreatitis, UA positive for nitrates but otherwise negative for findings of infection. With no urinary symptoms and slight squamous cell contamination, I will not treat for UTI at this time. Urine culture pending. XR personally interpreted demonstrates no acute intrathoracic abnormality, see radiology read for final interpretation. CT imaging personally interpreted demonstrate no acute intra-abdominal pathology, no evidence of bowel obstruction, colitis, pancreatitis, or other findings. Blood vessels unremarkable on my personal interpretation. See radiology read for final interpretation. On reassessment patient has had improvement of symptoms she stated the GI cocktail significantly helped. Since this offered relief, I prescribed sucralfate for outpatient management of symptoms. I also recommended she follow-up closely with her specialist, she stated she wants to go back to Dr. Granados and I encouraged her to do this. Patient was given instructions on symptomatic management, follow up instructions, and return precautions for the emergency department. Patient indicated understanding and was discharged in stable condition. Critical Care Critical Care Time Critical Care Time: No
[2024-07-29 02:06] LABS: Microscopic, Urine URINE MICROSCOPIC (MICROSCOPIC)
[2024-07-29 02:07] LABS: Appearance,Urine CLEAR (Clear); Bilirubin,Urine Negative (Negative); Blood, Urine Negative (Negative); Color,Urine YELLOW (Yellow); Glucose,Urine (UA) 3+ (Negative); Ketones,Urine Negative (Negative); Leukocyte Esterase,Urine Negative (Negative); Nitrate,Urine POSITIVE (Negative); PH,Urine 5.5 (5.0-8.5); Protein,Urine Negative (Negative); Urobilinogen,Urine 0.2 EU/dl (0.2)
[2024-07-29 02:21] LABS: Bacteria,Urine 1+ /lpf; Squamous Epithelial Cell,Urine Occasional #/hpf (0-5)
[2024-07-29] MEDS: 0.9 % SODIUM CHLORIDE 50 ML VIAL 40 ML IV (02:37)
[2024-07-29] MEDS: IOPAMIDOL-370 (76%);100ML BOTTLE 80 ML IV (02:37)
[2024-07-29] MEDS: SODIUM CHLORIDE 0.9% 10ML SYR (RAD ONLY) 10 ML IV (02:37)
[2024-07-29] MEDS: RINGERS SOLUTION,LACTATED 500 ML 999 ML IV (03:40)
[2024-07-29 04:30] LABS: Troponin I < 0.01 ng/ml (0.00-0.034)
--- NOTE | 2024-07-29 04:46 | PC.NURSE ---
Patient D/C'd. Waiting on ride .
--- NOTE | 2024-07-31 10:23 | ED_ITS ---
Discharge Plan Disposition Patient Disposition: Home, Self-Care Condition: Good Prescriptions Prescriptions: New sucralfate 100 mg/mL suspension 1 g PO Q6H 14 Days Qty: 560 0RF No Action ciprofloxacin HCl 500 mg tablet 500 mg PO BID 7 Days Qty: 14 0RF alendronate 70 mg tablet 70 mg PO WEEKLY budesonide 9 mg tablet,delayed and ext.release 9 mg PO DAILY Patient Comments: TAKE ONE TABLET BY MOUTH EVERY DAY insulin glargine U-300 conc [Toujeo SoloStar U-300 Insulin] 300 unit/mL (1.5 mL) insulin pen 10 unit SQ DAILY 30 Days Qty: 4.5 0RF (DME) pen needle, diabetic [Easy Comfort Pen [place]] 32 gauge x 5/32 needle See Rx Instructions .Route Qty: 100 3RF Rx Instructions: As directed methocarbamol 750 mg tablet 750 mg PO TID PRN (Reason: muscle relaxer) Qty: 30 0RF clobetasol [Olux] 0.05 % foam 1 applic topical BID 14 Days Qty: 100 0RF (DME) Easy Touch Test Strip Strip See Rx Instructions .ROUTE .MEDSUPPLY Qty: 100 3RF Rx Instructions: As directed daily (DME) pen needle, diabetic [Easy Touch Pen Needle] 30 gauge x 5/16 needle See Rx Instructions .Route Qty: 100 3RF Rx Instructions: As directed calcium polycarbophil [FiberCon] 625 mg tablet 1,250 mg PO DAILY Qty: 60 0RF oxybutynin chloride 10 mg tablet extended release 24hr 10 mg PO DAILY Qty: 90 3RF dapagliflozin propanediol [Farxiga] 10 mg tablet 10 mg PO DAILY Qty: 90 3RF sertraline 100 mg tablet See Rx Instructions .ROUTE .COMPLEX Qty: 30 2RF Dose Instruction: TAKE ONE TABLET BY MOUTH EVERY DAY Rx Instructions: TAKE ONE TABLET BY MOUTH EVERY DAY metformin 850 mg tablet See Rx Instructions .ROUTE .COMPLEX Qty: 30 2RF Dose Instruction: TAKE ONE TABLET BY MOUTH EVERY DAY AT BEDTIME Rx Instructions: TAKE ONE TABLET BY MOUTH EVERY DAY AT BEDTIME buspirone 10 mg tablet See Rx Instructions .ROUTE .COMPLEX Qty: 60 2RF Dose Instruction: TAKE ONE TABLET BY MOUTH TWICE DAILY Rx Instructions: TAKE ONE TABLET BY MOUTH TWICE DAILY potassium chloride 10 mEq capsule, extended release See Rx Instructions .ROUTE .COMPLEX Qty: 60 2RF Dose Instruction: TAKE ONE CAPSULE BY MOUTH TWICE DAILY Rx Instructions: TAKE ONE CAPSULE BY MOUTH TWICE DAILY nystatin 100,000 unit/gram cream 1 applic topical TID 14 Days Qty: 90 0RF atenolol 25 mg tablet See Rx Instructions .ROUTE .COMPLEX Qty: 90 0RF Dose Instruction: TAKE ONE TABLET BY MOUTH EVERY DAY Rx Instructions: TAKE ONE TABLET BY MOUTH EVERY DAY rosuvastatin 20 mg tablet See Rx Instructions .ROUTE .COMPLEX Qty: 90 0RF Dose Instruction: TAKE ONE TABLET BY MOUTH EVERY DAY AT BEDTIME Rx Instructions: TAKE ONE TABLET BY MOUTH EVERY DAY AT BEDTIME budesonide-formoterol [Symbicort] 80-4.5 mcg/actuation HFA aerosol inhaler 2 puff inhalation BID Qty: 30 1RF pantoprazole 40 mg tablet,delayed release (DR/EC) See Rx Instructions .ROUTE .COMPLEX Qty: 90 0RF Dose Instruction: TAKE ONE TABLET BY MOUTH EVERY DAY Rx Instructions: TAKE ONE TABLET BY MOUTH EVERY DAY levothyroxine 50 mcg tablet See Rx Instructions .ROUTE .COMPLEX Qty: 90 0RF Dose Instruction: TAKE ONE TABLET BY MOUTH EVERY DAY FOR hypothyroidism Rx Instructions: TAKE ONE TABLET BY MOUTH EVERY DAY FOR hypothyroidism albuterol sulfate 90 mcg/actuation HFA aerosol inhaler See Rx Instructions .ROUTE .COMPLEX Qty: 8.5 2RF Dose Instruction: INHALE 2 PUFFS BY MOUTH EVERY 4 TO 6 HOURS NEEDED FOR SHORTNESS OF BREATH OR WHEEZING Rx Instructions: INHALE 2 PUFFS BY MOUTH EVERY 4 TO 6 HOURS NEEDED FOR SHORTNESS OF BREATH OR WHEEZING promethazine 25 mg tablet See Rx Instructions .ROUTE .COMPLEX Qty: 30 0RF Dose Instruction: TAKE ONE TABLET BY MOUTH TWICE DAILY NEEDED FOR NAUSEA AND VOMITING MAY CAUSE DROWSINESS Rx Instructions: TAKE ONE TABLET BY MOUTH TWICE DAILY NEEDED FOR NAUSEA AND VOMITING MAY CAUSE DROWSINESS Referrals Follow up/Referrals: Mari Carrero APRN [Primary Care Provider] - See instructions Activity Restrictions/Add. Instructions Additional Instructions/Restrictions: You were evaluated in the ER and are believed to be appropriate for discharge at this time. Continue taking your home medications as previously prescribed. Take the prescribed sucralfate as directed. Make an appointment with your primary care doctor for reevaluation in a few days. Also call your specialist Dr. Granados to reschedule follow-up. Return to the ER with any new, worsening, or otherwise concerning symptoms. Clinical Impressions Clinical Impression: Epigastric abdominal pain Instructions Patient Instructions: DI for Acute Abdominal Pain Print Language Print Language: Sudanese Discharge ED Provider: Real Reyes Adult HPI General Chief complaint: Abdominal Pain Stated complaint: Stomach pain Time Seen by Provider: 07/29/24 01:02 Mode of Arrival: Wheelchair Source of Information: Patient Description of Symptoms (Recalled from ER Triage Doc. by RN): Pt reports abdominal pain in through the back which has been ongoing for approx 2-3 years. Pt reports the pain is worse in the last 2 hours. Pt reports she has been seen by multiple doctors and have not been able to figure out what her problem is. Pt reports pain 10/21 Related Data Home Medications ?Medication ?Instructions ?Recorded ?Confirmed alendronate 70 mg tablet 70 mg PO WEEKLY 05/17/23 07/16/24 budesonide 9 mg tablet,delayed and 9 mg PO DAILY 01/17/24 07/16/24 extended release Previous Rx's ?Medication ?Instructions ?Recorded blood sugar diagnostic (Easy Touch #100 ea 01/13/24 Test Strip) pen needle, diabetic 30 gauge x #100 ea 01/13/2407/27 (Easy Touch Pen Needle) calcium polycarbophil 625 mg 1,250 mg (2 x 625 mg) PO DAILY #60 01/19/24 tablet (FiberCon) tabs oxybutynin chloride 10 mg 10 mg PO DAILY #90 tabs 02/07/24 tablet,extended release 24 hr dapagliflozin propanediol 10 mg 10 mg PO DAILY #90 tabs 05/28/24 tablet (Farxiga) insulin glargine U-300 conc 300 10 unit (0.0333 mL) SQ DAILY 30 05/30/24 unit/mL (1.5 mL) subcutaneous pen days #4.5 mL (Toujeo SoloStar U-300 Insulin) pen needle, diabetic 32 gauge x #100 ea 05/30/24 (Easy Comfort Pen [place]) buspirone 10 mg tablet See Rx Instructions .Route 06/01/24 .COMPLEX #60 tabs metformin 850 mg tablet See Rx Instructions .Route 06/01/24 .COMPLEX #30 tabs potassium chloride 10 mEq See Rx Instructions .Route 06/01/24 capsule,extended release .COMPLEX #60 caps sertraline 100 mg tablet See Rx Instructions .Route 06/01/24 .COMPLEX #30 tabs nystatin 100,000 unit/gram topical 1 applic topical TID 14 days #90 06/15/24 cream grams clobetasol 0.05 % topical foam 1 applic topical BID 2 weeks #100 06/20/24 (Olux) grams methocarbamol 750 mg tablet 750 mg PO TID PRN muscle relaxer 06/20/24 #30 tabs atenolol 25 mg tablet See Rx Instructions .Route 07/02/24 .COMPLEX #90 tabs budesonide-formoterol HFA 80 2 puff inhalation BID #30 grams 07/02/24 mcg-4.5 mcg/actuation aerosol inhaler (Symbicort) pantoprazole 40 mg tablet,delayed See Rx Instructions .Route 07/02/24 release .COMPLEX #90 tabs rosuvastatin 20 mg tablet See Rx Instructions .Route 07/02/24 .COMPLEX #90 tabs levothyroxine 50 mcg tablet See Rx Instructions .Route 07/09/24 .COMPLEX #90 tabs ciprofloxacin HCl 500 mg tablet 500 mg PO BID 7 days #14 tabs 07/16/24 albuterol sulfate 90 mcg/actuation See Rx Instructions .Route 07/18/24 aerosol inhaler .COMPLEX #8.5 grams promethazine 25 mg tablet See Rx Instructions .Route 07/23/24 .COMPLEX #30 tabs sucralfate 100 mg/mL oral 1 g (10 mL) PO Q6H 2 weeks #560 mL 07/29/24 suspension Allergies Allergy/AdvReac Type Severity Reaction Status Date / Time nickel Allergy Intermediate I-RASH Verified 07/16/24 14:47 silk Allergy Mild I-RASH Verified 07/16/24 14:47 cefaclor Allergy Unknown RASH/DIFF Verified 07/16/24 14:47 BREATHING ibuprofen Allergy Unknown NA-NAUSEA/V Verified 07/16/24 14:47 OMITING levofloxacin (From Levaquin) Allergy Unknown Unknown Verified 07/16/24 14:47 allergy reaction morphine Allergy Unknown BOTTOMS Verified 07/16/24 14:47 OUT UP nitrofurantoin (From Allergy Unknown Unknown Verified 07/16/24 14:47 MACROBID) allergy reaction Sulfa (Sulfonamide Allergy Unknown Unknown Verified 07/16/24 14:47 Antibiotics) allergy reaction PFSH PFSH Disclaimer: The information contained in this section may have been updated after the patient was seen, as this information can be updated by other users. Medical History (Updated 07/29/24 @ 03:58 by Real Reyes MD) Left flank pain Seborrheic dermatitis of scalp UTI (urinary tract infection) Hyperglycemia COVID-19 Acute exacerbation of chronic obstructive pulmonary disease (COPD) Acute cystitis Gastroenteritis due to norovirus Lymphocytic colitis Generalized abdominal pain Insomnia Increased urinary frequency Upper abdominal pain Abdominal cramping Dysuria Muscle cramping Constipation by delayed colonic transit Oral candidiasis Vomiting General weakness Colitis Colon wall thickening Abdominal pain ROM (right otitis media) Nausea Panic attack Chest pain Opioid overdose Shortness of breath Elevated erythrocyte sedimentation rate Asymptomatic COVID-19 virus infection Sebaceous cyst of labia UTI (urinary tract infection), bacterial Gram-negative bacterial infection Lower extremity edema Vomiting and diarrhea Chest pain Hypoxia Obesity Hypoxemia Community acquired pneumonia Acute exacerbation of chronic obstructive airways disease Bladder spasms Stress incontinence Abdominal pain Abdominal bloating Hypothyroidism Hypertension Type 2 diabetes mellitus Diarrhea History of COPD Pneumonia with cavity of lung Surgical History H/O left breast biopsy Hx of cholecystectomy History of Family History Sister Cancer metastasized all over body, doesn't know type or where it started. Stated it is curable Pancreatic cancer Social History Smoking Status: Current every day smoker tobacco type: cigarettes packs per day: 1 alcohol intake: never substance use type: denies use current occupational status: retired Travel in the last 8 weeks?: None household members: family and friend(s) housing: house caffeine: Yes Other Medical History Have you received the Flu Vaccine for this season: No Have you received the Pneumonia Vaccine: No Physical Exam General General appearance: alert Medical Decision Making Medical Records Screening: Per USPSTF and CDC recommendations, given the prevalence of disease in our region, it is our hospital?s policy to screen for HIV and viral Hepatitis for all patients aged 18 and over and those with ongoing risk factors. Vital Signs: 07/29/24 01:01 07/29/24 01:07 07/29/24 01:30 Temperature 98.4 F 98.4 F Temperature Source Oral Oral Pulse Rate 73 69 Pulse Rate [Left] 73 Respiratory Rate 18 18 Blood Pressure 139/77 150/72 H Blood Pressure [Right Arm] 138/77 Blood Pressure Mean Blood Pressure Mean [Right Arm] 97 Blood Pressure Source Automatic Cuff Blood Pressure Source [Right Arm] Automatic Cuff Blood Pressure Position Sitting Blood Pressure Position [Right Arm] Sitting 02 Sat by Pulse Oximetry 97 97 93 L Oxygen Delivery Method Room Air Room Air Oxygen Flow Rate (LPM) 07/29/24 02:06 07/29/24 02:30 07/29/24 03:00 Temperature Temperature Source Pulse Rate 64 69 61 Pulse Rate [Left] Respiratory Rate Blood Pressure 147/86 H 139/69 131/74 Blood Pressure [Right Arm] Blood Pressure Mean Blood Pressure Mean [Right Arm] Blood Pressure Source Blood Pressure Source [Right Arm] Blood Pressure Position Blood Pressure Position [Right Arm] 02 Sat by Pulse Oximetry 94 L 94 L 92 L Oxygen Delivery Method Oxygen Flow Rate (LPM) 07/29/24 03:30 07/29/24 04:13 07/29/24 04:30 Temperature Temperature Source Pulse Rate 69 61 68 Pulse Rate [Left] Respiratory Rate 16 Blood Pressure 120/75 138/77 148/78 H Blood Pressure [Right Arm] Blood Pressure Mean Blood Pressure Mean [Right Arm] Blood Pressure Source Automatic Cuff Blood Pressure Source [Right Arm] Blood Pressure Position Blood Pressure Position [Right Arm] 02 Sat by Pulse Oximetry 92 L 95 97 Oxygen Delivery Method Room Air Oxygen Flow Rate (LPM) 07/29/24 04:30 07/29/24 04:33 07/29/24 04:43 Temperature 98.9 F Temperature Source Oral Pulse Rate 68 Pulse Rate [Left] Respiratory Rate 18 Blood Pressure 149/130 H 148/78 H 148/78 H Blood Pressure [Right Arm] Blood Pressure Mean 134 101 Blood Pressure Mean [Right Arm] Blood Pressure Source Automatic Cuff Blood Pressure Source [Right Arm] Blood Pressure Position Blood Pressure Position [Right Arm] 02 Sat by Pulse Oximetry Oxygen Delivery Method Room Air Oxygen Flow Rate (LPM) 98 Lab Data Lab Results 07/29/24 01:16: WBC 8.2, RBC 5.09, Hgb 11.4 L, Hct 38.0, MCV 74.7 L, MCH 22.4 L, MCHC 30.0 L, RDW 17.5, Plt Count 208, MPV 9.8, Neut % (Auto) 57.1, Lymph % (Auto) 36.9, [place] % (Auto) 4.7, Eos % (Auto) 0.2, Baso % (Auto) 0.5, Neut # (Auto) 4.7, Lymph # (Auto) 3.0, [place] # (Auto) 0.4, Eos # (Auto) 0.0, Baso # (Auto) 0.0, PT 10.7, INR 0.96, Sodium 136, Potassium 4.5, Chloride 106, Carbon Dioxide 22, Anion Gap 12.5, BUN 20 H, Creatinine 0.80, Estimated Creat Clear 43, Estimated GFR 71, Est GFR ( Amer) 86, Glucose 261 H, Calcium 9.8, Total Bilirubin 0.3, AST 25, ALT 22, Alkaline Phosphatase 58, Troponin I < 0.01, Total Protein 7.7, Albumin 4.3, Globulin 3.4 H, Albumin/Globulin Ratio 1.3, Lipase 72 07/29/24 02:00: Urine Color Yellow, Urine Appearance Clear, Urine pH 5.5, Ur Specific [place] 1.020, Urine Protein Negative, Urine Glucose (UA) 3+, Urine Ketones Negative, Urine Blood Negative, Urine Nitrate Positive A, Urine Bilirubin Negative, Urine Urobilinogen 0.2, Ur Leukocyte Esterase Negative, Urine RBC None, Urine WBC 5-10, Ur Squamous Epith Cells Occasional, Urine Bacteria 1+ 07/29/24 03:51: Troponin I < 0.01 07/29/24 01:16 07/29/24 01:16 Orders (Tests/Meds): ED MEDICATIONS Discontinued Medications Generic Name Dose Route Start Last Admin Trade Name Freq PRN Reason Stop Dose Admin Belladonna Alkaloids 60 ml 07/29/24 01:02 07/29/24 01:20 Belladonna Alkaloids 60 Ml Ml PO 07/29/24 01:03 60 ml ONCE ONE Administration Lactated Ringer's 500 mls @ 999 mls/hr 07/29/24 02:36 07/29/24 03:40 Lactated Ringer's 500ml IV 07/29/24 03:06 999 mls/hr .Q31M ONE Administration Iopamidol 80 ml 07/29/24 02:36 07/29/24 02:37 Iopamidol-370 (76%);100ml Bottle IV 07/29/24 02:37 80 ml ONCE ONE Administration Ondansetron HCl 4 mg 07/29/24 01:02 07/29/24 01:21 Ondansetron 4mg/2ml Vial IV 07/29/24 01:03 4 mg ONCE ONE Administration Sodium Chloride 40 ml 07/29/24 02:36 07/29/24 02:37 0.9 % Sodium Chloride 50 Ml Vial IV 07/29/24 02:37 40 ml ONCE ONE Administration Sodium Chloride 10 ml 07/29/24 02:36 07/29/24 02:37 Sodium Chloride 0.9% 10ml Syr (Rad Only) IV 08/28/24 02:35 10 ml NEEDED PRN Administration Maintain IV Site ORDERS Category Date Time Status CT angio abdomen pelvis Stat Cat Scan 07/29/24 01:02 Completed XR chest portable Stat Exams 07/29/24 01:02 Completed Complete Blood Count Auto Diff Stat Lab 07/29/24 01:16 Completed Comprehensive Metabolic Panel Stat Lab 07/29/24 01:16 Completed Lipase Stat Lab 07/29/24 01:16 Completed Prothrombin Time INR Stat Lab 07/29/24 01:16 Completed Troponin I Q3H Lab 07/29/24 03:51 Completed Troponin I Stat Lab 07/29/24 01:16 Completed Urinalysis and Microscopic Stat Lab 07/29/24 02:00 Completed Urine Culture Stat Micro 07/29/24 02:00 Completed
--- NOTE | 2024-07-31 10:24 | P.EN_ITS ---
Patient's urine culture from 07/29/2024 came back positive for multidrug- resistant urinary tract infection, only susceptible orally to Macrobid. Patient has multiple antibiotic allergies and intolerances. I tried to call her 07/31/2024 at 10:20 AM to discuss the results with her and come up with antibiotic plan, whether it be oral Macrobid based on her reaction to it versus coming in for IV antibiotics for her multidrug-resistant UTI. I did not get an answer, so I left a voicemail asking her to call the emergency department.
== END 2024-07-29 05:00 | disposition home or self-care (01) ==
PROVIDERS: Emergency Provider Emergency Medicine; PCP Nurse Practitioner Family
DX: R10.13 Epigastric pain (principal); R11.0 Nausea; J44.9 Chronic obstructive pulmonary disease, unspecified; F17.210 Nicotine dependence, cigarettes, uncomplicated
CPT/HCPCS: 71045; 74174; 80053; 81001; 83690; 84484; 85025; 85610; 87086; 87088; 87186; 93005; 96374; 99285; J2405; J7120; Q9967

== ENCOUNTER 2024-09-04 15:30 | Outpatient (CLI) | payer MEDICARE, SELFPAY ==
--- OUTSIDE RECORDS SUMMARY | 2024-09-05 14:02 | XMS_ITS | Encounter Summary ---
Author Organization [facility] [employer] Address [address] [place] [address] Care Team Providers Care Data Conversion Analyst Name Role Phone Mari Carrero APRN Primary Care Provider [phone] Encounter Details Date Type Department Care Team (Late st Contact Info) Description 11/05/2020 Transcribed Document [facility] [place] [facility] [place] [address] ProviderRoselyn MD [address] [place] [id number] Social History Tobacco Use Types Packs/Day Years Used Date Smoking Tobacco: Never Assessed Comments Unknown Sex and Gender Information Value Date Recorded Sex Assigned at Not on file Legal Sex Female 6:09 PM CDT Gender Identity Not on file Sexual Orientation Not on file documented as of this encounter Miscellaneous Notes * Cerner Conversion Note - Roselyn ProviderMD - 11/05/2020 12:49 PM CDT [facility] PostOp Summary Primary Physician: DONY CERVANTES MD-OBG Finalized Date/Time: 11/05/20 16:02:04 Pt. Name: ANN MARIE DOMINGUEZ /Sex: 1955 Female Med Rec #: [id number] Physician: DONY CERVANTES MD-OBG Financial #: [id number] Pt. Type: O Room/Bed: Admit/Disch: 11/05/20 09:46:00 - Institution: [facility] Post[facility] Case Times Entry 1 In PACU II 11/05/20 15:00:00 Ready for PACU II 11/05/20 15:30:00 Discharge Discharge from PACU 11/05/20 15:45:00 II Last Modified By: KATHLEEN BRAMBILA, DEAN 11/05/20 16:01:57 [facility] PostOp Case Times Audit 11/05/20 16:01:57 Civil Technician: [email or web address] Modifier: [email or web address] <+> 1 Discharge from PACU II 11/05/20 15:47:34 Civil Technician: [email or web address] Modifier: [email or web address] <+> 1 Ready for PACU II Discharge Finalized By: KATHLEEN BRAMBILA, RN Document Signatures Signed By: KATHLEEN BRAMBILA RN 11/05/20 16:02 documented in this encounter Plan of Treatment Not on file documented as of this encounter Visit Diagnoses Not on filedocumented in this encounter Care Teams Data Conversion Analyst Relationship Specialty Start Date End Date Mari Carrero, [employer] [phone] [phone] PCP - General Nurse Practitioner 08/10/23 documented as of this encounter
--- OUTSIDE RECORDS SUMMARY | 2024-09-05 14:02 | XMS_ITS | Encounter Summary ---
Author Organization [facility] [employer] Address [address] [place] [address] Care Team Providers Care Medical Investigator Name Role Phone Mari Carrero APRN Primary Care Provider Encounter Details Date Type Department Care Team (Late st Contact Info) Description 11/05/2020 Transcribed Document [facility] Family Medicine Formerly [facility] [address] ProviderRoselyn MD [address] [place] [address] [id number] Social History Tobacco Use Types Packs/Day Years [...] 11/05/2020 12:49 PM CDT [facility] Main OR IntraOp Summary Primary Physician: DONY CERVANTES MD-OBG Finalized Date/Time: 11/05/20 13:56:06 Pt. Name: ANN MARIE DOMINGUEZ /Sex: 1955 Female Med Rec #: [id number] Physician: DONY CERVANTES MD-OBG Financial #: [id number] Pt. Type: O Room/Bed: Admit/Disch: 11/05/20 09:46:00 - Institution: [facility] IntraOp Case Attendance Entry 1 Entry 2 Entry 3 Case Attendee DONY CERVANTES MD-OBG ANIN GOODRICH APRN, Brock, Deanna FINISHING OPERATOR-ANS Role Performed Surgeon/Proceduralist, FINISHING OPERATOR/Nurse Cardiology Nurse Scrub, First First Time In 11/05/20 12:28:00 11/05/20 12:28:00 11/05/20 12:28:00 Time Out 11/05/20 13:56:00 11/05/20 13:56:00 11/05/20 13:56:00 Procedure Mass Excision Genitalia Mass Excision Genitalia Mass Excision Genitalia Other Attendee Superficial Wound Closed By: Last Modified By: Brittani Christianson Blankenship, Crystal, Blankenship, Crystal RN-PATIENT CARE BEDSIDE RN-PATIENT CARE BEDSIDE RN-PATIENT CARE BEDSIDE NON-EXEMPT 11/05/20 NON-EXEMPT 11/05/20 NON-EXEMPT 11/05/20 13:56:02 13:56:02 13:56:02 Entry 4 Case Attendee Brittani Christianson RN-PATIENT CARE BEDSIDE NON-EXEMPT Role Performed Retread Supervisor, First Time In 11/05/20 12:28:00 Time Out 11/05/20 13:56:00 Procedure Mass Excision Genitalia Other Attendee Superficial Wound Closed By: Last Modified By: Brittani Christianson RN-PATIENT CARE BEDSIDE NON-EXEMPT 11/05/20 13:56:02 [facility] IntraOp Case Attendance Audit 11/05/20 13:56:02 Metabolic Specialist: [id number] Modifier: [id number] <+> Time Out 1 <*> Procedure Mass Excision Genitalia 2 <+> Time Out 2 <*> Procedure Mass Excision Genitalia 3 <+> Time Out 3 <*> Procedure Mass Excision Genitalia 4 <+> Time Out 4 <*> Procedure Mass Excision Genitalia 11/05/20 13:10:37 Metabolic Specialist: [id number] Modifier: [id number] <+> Time In 1 <*> Procedure Mass Excision Genitalia 2 <+> Time In 2 <*> Procedure Mass Excision Genitalia 3 <+> Time In 3 <*> Procedure Mass Excision Genitalia 4 <+> Time In 4 <*> Procedure Mass Excision Genitalia 11/05/20 12:53:31 Metabolic Specialist: [id number] Modifier: [id number] <+> 2 Case Attendee <+> 2 Role Performed <+> 2 Procedure <+> 3 Case Attendee <+> 3 Role Performed <+> 3 Procedure <+> 4 Case Attendee <+> 4 Role Performed <+> 4 Procedure [facility] IntraOp Case Times Entry 1 Patient In Room Time 11/05/20 12:28:00 Out Room Time 11/05/20 13:56:00 Anesthesia Start Time 11/05/20 12:28:00 Stop Time 11/05/20 13:56:00 Anesthesia Ready 11/05/20 12:28:00 Surgery / Procedure Times Start Time 11/05/20 12:49:00 Stop Time 11/05/20 13:50:00 Last Modified By: Brittani Christianson RN-PATIENT CARE BEDSIDE NON-EXEMPT 11/05/20 13:55:49 [facility] IntraOp Case Times Audit 11/05/20 13:55:49 Metabolic Specialist: [id number] Modifier: [id number] <+> 1 Out Room Time <+> 1 Stop Time <+> 1 Stop Time [facility] IntraOp Cautery Entry 1 ESU Identification Cautery Type Monopolar ESU ID Number [id number] ID Type Hospital Number Cautery Settings Cut Setting 30 Coag Setting 30 ESU Grounding Pad Ground Pad Type Adult Grounding Pad Site Right thigh Grounding Pad Brittani Christianson, Applied By RN-PATIENT CARE BEDSIDE NON-EXEMPT Grounding Pad Site Warm, dry and intact Skin Condition Before Cautery Grounding Pad Site Unchanged Skin Condition After Cautery Last Modified By: Brittani Christianson RN-PATIENT CARE BEDSIDE NON-EXEMPT 11/05/20 13:03:33 [facility] IntraOp Communication Entry 1 Communication To Family/Significant other Communication By Brittani Christianson RN-PATIENT CARE BEDSIDE NON-EXEMPT Date and Time 11/05/20 13:13:00 Last Modified By: Brittani Christianson RN-PATIENT CARE BEDSIDE NON-EXEMPT 11/05/20 13:13:34 [facility] IntraOp Counts Verification Entry 1 Procedure Mass Excision Genitalia Count Info Count Type Sponge, Sharps Counts Verification Baseline/pre-procedure Sequence Counts Performed By Count Performed By Olivia Louis (Scrub) Count Performed By Brittani Christianson (RN) RN-PATIENT CARE BEDSIDE NON-EXEMPT Last Modified By: Brittani Christianson RN-PATIENT CARE BEDSIDE NON-EXEMPT 11/05/20 13:03:49 [facility] IntraOp Counts Final Entry 1 Procedure Mass Excision Genitalia Final Count Info Count Type Sponge, Sharps Counts Verification Skin Closure/end of Sequence procedure Count Results Correct, surgeon notified Counts Performed By Count Performed By Olivia Louis (Scrub) Count Performed By Brittani Christianson (RN) RN-PATIENT CARE BEDSIDE NON-EXEMPT Last Modified By: Brittani Christianson RN-PATIENT CARE BEDSIDE NON-EXEMPT 11/05/20 13:42:08 [facility] IntraOp Cultures and Spec Summary Entry 1 Cultrures and Specimens Specimen Ordered: Yes Test(s) Culture(s)/Microbiology Requested/Final Disposition Last Modified By: Brittani Christianson RN-PATIENT CARE BEDSIDE NON-EXEMPT 11/05/20 13:03:55 [facility] IntraOp Departure from OR Entry 1 Integumentary Assessment Integumentary WDL Assessment WDL Transfer/Handoff Transfer to PACU Phase I Handoff Method Bedside/Face to face, Other Post-op Transport Stretcher/Gurney Via Patient Transport ANNI GOODRICH APRN, Accompanied by FINISHING OPERATOR-ANSSammy Crystal, RN-PATIENT CARE BEDSIDE NON-EXEMPT Last Modified By: Brittani Christianson RN-PATIENT CARE BEDSIDE NON-EXEMPT 11/05/20 13:04:23 [facility] IntraOp Drains and Tubes Entry 1 Device Type [place] Size 1/4 Drain/Tube Activity Inserted Method of Drainage Passive Last Modified By: Brittani Christianson RN-PATIENT CARE BEDSIDE NON-EXEMPT 11/05/20 13:18:31 [facility] IntraOp Dressing and Packing Entry 1 Type Dressing Location MONS PUBIS Wound Dressing Item 4x4's, ABD dressing pad, Other Applied By Olivia Louis Other Comments MESH PANTIES Last Modified By: Brittani Christianson RN-PATIENT CARE BEDSIDE NON-EXEMPT 11/05/20 13:34:39 [facility] IntraOp Fire Risk Assessment Entry 1 Fire Info Surgical Site or 0- No Incision Above the Xyphoid Open O2 Source 0- No (Mask or Cannula) Available Ignition 1- Yes (ESU, Laser, Light Source) Fire Risk 1 Assessment Score Fire Score Fire Risk Yes Assessment Complete Fire Risk Brittani Christianson, Assessment Verified RN-PATIENT CARE BEDSIDE By NON-EXEMPT Fire Risk 11/05/20 13:06:00 Assessment Verified Date/Time Fire Risk Standard Fire Yes Safety Precautions Followed Last Modified By: Brittani Christianson RN-PATIENT CARE BEDSIDE NON-EXEMPT 11/05/20 13:06:09 [facility] IntraOp General Case Strategy Specialist 1 Case Information OR OR 04 S[facility] Case Level 1 Room Verified Yes Wound Class IV - Dirty-Infected Specialty Gynecology Anesthesia Type General ASA Class 3 Diagnosis Preop Diagnosis INFLAMMATORY MASS OF THE MONS PUBIS Postop Same As Preop No Postop Diagnosis DICTATED BY SURGEON Last Modified By: Brittani Christianson RN-PATIENT CARE BEDSIDE NON-EXEMPT 11/05/20 13:07:05 [facility] IntraOp Intraoperative Assessment Entry 1 Handoff Method Bedside/Face to face, Other Valid History / Yes Physical in Chart Preoperative Yes Checklist Reviewed/Evaluated Allergies Reviewed Yes Patient is Latex No Sensitive Isolation Not applicable Precautions Noted Level of WDL Consciousness (WDL = Alert, Oriented to Person, Place, and Time) Skin Assessment Yes Verified Present Upon IVs Arrival to OR Last Modified By: Brittani Christianson RN-PATIENT CARE BEDSIDE NON-EXEMPT 11/05/20 13:07:32 [facility] IntraOp Intraoperative Equipment Entry 1 Equipment Intraop Monitoring Electrocardiogram Three lead placement (ECG) Electrode Placement Blood Pressure Non-Invasive BP Device Source Blood Pressure Arm, left upper Location Pulse Oximeter Hand, right Probe Site Antiembolic Devices Antiembolic Devices Sequential compression device, knee high Antiembolic Device Bilateral Location Antiembolic Device [id number] ID Number Scopes Photo/Video Documentation Photo Yes Video No Last Modified By: Brittani Christianson RN-PATIENT CARE BEDSIDE NON-EXEMPT 11/05/20 13:08:13 [facility] IntraOp Medication Admin Entry 1 Medication/Irrigant Marcaine 0.5% w/ epinephrine 1:200,000 30ml vial - [id number] Route of TO FIELD Administration Dose Dose 50 Unit of Measure ml Volume QS Administered By DONY CERVANTES MD-OBG Procedure Irrigation Last Modified By: Brittani Christianson RN-PATIENT CARE BEDSIDE NON-EXEMPT 11/05/20 13:08:57 [facility] IntraOp Patient Positioning Entry 1 Procedure Mass Excision Genitalia Body Position Modified lithotomy Left Arm Position Secured on padded arm board Right Arm Position Secured on padded arm board Left Leg Position Secured in stirrup Right Leg Position Secured in stirrup Feet Uncrossed Yes Pressure Points Yes Checked Positioning Devices Arm Board, Stirrups/Leg Chawla, Boot Positioned By DONY CERVANTES MD-OBG, ANNI GOODRICH APRN, RAHEEM-MOOSE, Olivia Louis, Brittani Christianson RN-PATIENT CARE BEDSIDE NON-EXEMPT Position Verified Positioning Yes Verified by Anesthesia Positioning Yes Verified by Surgeon Last Modified By: Brittani Christianson RN-PATIENT CARE BEDSIDE NON-EXEMPT 11/05/20 13:09:56 [facility] IntraOp Sign In Entry 1 Patient, Site, Yes Procedure Identified Surgical Consent Yes Confirmed Relevant Surgical Yes Documents Available Surgical Site N/A Marked by person performing procedure Anesthesia Machine Yes Check Completed Medication Checks Yes Completed Allergies Yes Airway Difficult Yes Airway/Aspiration Risk Difficult No Airway/Aspiration Intervention Equipment Available Blood Loss Risk No Blood Loss No Intervention Equipment Prepared and Ready Blood Identifiers Not applicable Verified Per Policy Hypothermia Risk Yes Warming Measures Yes Taken Last Modified By: Brittani Christianson RN-PATIENT CARE BEDSIDE NON-EXEMPT 11/05/20 13:10:34 [facility] Intra Op Sign Out Entry 1 RN Confirmation Surgical Yes Procedure(s) Identified Instrument, Sponge Yes and Sharps Counts Correct/Documented Equipment Problems Yes Documented Specimen Labeled Yes Correctly Urinary Catheter N/A Documented in IView Kaye Patient Yes Recovery Concerns Reviewed with Anesthesia Provider, Surgeon and RN Kaye Patient Yes Management Concerns Reviewed with Anesthesia Provider, Surgeon and RN Safety Checklist Yes Elements Complete? RN Sign Out Brittani Christianson, Signature RN-PATIENT CARE BEDSIDE NON-EXEMPT RN Sign Out 11/05/20 13:55:00 Signature Date/Time Plan of Care Outcome - Fire Risk OUTCOME STATEMENT: Goal met Patient is free from injury related to surgical fire Plan of Care Outcome - Pt Positioning OUTCOME STATEMENT: Goal met Absence of signs and symptoms of positioning injury. Plan of Care Outcome - Skin Prep OUTCOME STATEMENT: Goal met Intraoperative care is consistent with measures to prevent infection Plan of Care Outcome - Xray/Images OUTCOME STATEMENT: N/A Absence of observable signs or symptoms of radiation injury Plan of Care Outcome - Counts OUTCOME STATEMENT: Goal met Absence of signs and symptoms of injury related to extraneous objects Last Modified By: Brittani Christianson RN-PATIENT CARE BEDSIDE NON-EXEMPT 11/05/20 13:55:56 [facility] Intra Op Sign Out Audit 11/05/20 13:55:56 Metabolic Specialist: [id number] Modifier: [id number] <+> 1 RN Sign Out Signature Date/Time [facility] IntraOp Skin Prep Entry 1 Procedure Mass Excision Genitalia Prescribed N/A Pre-Surgical Prep Completed Prep Area PERINEUM, INNER THIGHS Intraop Prep Integumentary WDL Assessment WDL Prep Agents Betadine scrub, Betadine solution Prep by Brittani Christianson RN-PATIENT CARE BEDSIDE NON-EXEMPT Hair Removal Methods No hair removal performed Last Modified By: Brittani Christianson RN-PATIENT CARE BEDSIDE NON-EXEMPT 11/05/20 13:11:42 [facility] IntraOp Surgical Procedures Entry 1 Procedure Mass Excision Genitalia Additional EXPLORATION OF MONS Procedure PUBIS MASS WITH Description INCISION AND DRAINAGE/DEBRIDEMENT Primary Procedure Yes Primary Surgeon DONY CERVANTES MD-OBG Start 11/05/20 12:49:00 Stop 11/05/20 13:50:00 Anesthesia Type General Specialty Gynecology Wound Class IV - Dirty-Infected Last Modified By: Brittani Christianson RN-PATIENT CARE BEDSIDE NON-EXEMPT 11/05/20 13:56:01 [facility] IntraOp Surgical Procedures Audit 11/05/20 13:56:01 Metabolic Specialist: [id number] Modifier: [id number] <+> 1 Stop 11/05/20 13:09:58 Metabolic Specialist: [id number] Modifier: [id number] <+> 1 Start [facility] IntraOp Temp Regulation Devices Entry 1 Temp Regulation Temperature Forced Air Warming Regulation Device device Temperature Upper body Regulation Site Temperature Device HIGH Setting Temperature ANNI GOODRICH APRN, Regulation Device FINISHING OPERATOR-ANS Applied by Last Modified By: Brittani Christianson RN-PATIENT CARE BEDSIDE NON-EXEMPT 11/05/20 13:18:52 [facility] IntraOp Time Out Entry 1 Procedure to be Mass Excision Genitalia Performed Time Out Time Out Pause Time 11/05/20 12:48:00 All activity Yes suspended (unless life threatening emergency) Team Verbally Correct patient Confirms Information identity, Consent form is present and accurate, Agreement on the procedure to be done, Correct patient position, Confirm antibiotics have been administered, Performed in location of procedure after prepped/draped Antibiotic Yes Prophylaxis Administered Or In Progress Within the Last 60 Minutes Beta Alfred Yes Administered Venous Yes Thromboembolism Prophylaxis Required Anticipated Critical Events Surgeon None expected Anesthesia Provider None expected Nursing Assures Sterility of instruments, Equipment concerns or issues Essential Imaging N/A Labeled and Displayed Last Modified By: Brittani Christianson RN-PATIENT CARE BEDSIDE NON-EXEMPT 11/05/20 13:02:37 Case Comments <None> Finalized By: Brittani Christianson RN-PATIENT CARE BEDSIDE NON-EXEMPT Document Signatures Signed By: Brittani Christianson RN-PATIENT CARE BEDSIDE NON-EXEMPT 11/05/20 13:56 Electronically signed by [facility] Conversion Holistic Nutritionist Cerner at 06/27/2022 8:33 PM CDT documented in this encounter Plan of Treatment Not on file documented as of this encounter Visit Diagnoses Not on filedocumented in this encounter Care Teams Medical Investigator Relationship Specialty Start Date End Date Mari Carrero, SLIVER CUTTER [address] [place] [address] PCP - General Nurse Practitioner 08/10/23 documented as of this encounter
--- OUTSIDE RECORDS SUMMARY | 2024-09-05 14:02 | XMS_ITS | Encounter Summary ---
Author Organization Healthcare Address [address] [place] [address] Care Team Providers Care Beaming Inspector Name Role Phone Reynold Khan MD Primary Care Provider [phone] Encounter Details Date Type Department Care Team (Late st Contact Info) Description 07/19/2022 Lab Requisition [facility] [address] [place] [address] Maxwell Neal MD [address] [place] [address] Encounter for general adult medical examination without abnormal findings Social History Tobacco Use Types Packs/Day Years Used Date Smoking Tobacco: Never Assessed Comments Unknown Sex and Gender Information Value Date Recorded Sex Assigned at Not on file Legal Sex Female 8:53 PM EDT Gender Identity Not on file Sexual Orientation Not on file documented as of this encounter Functional Status * Actual/Potential Lethality (Most Lethal Attempt) Question Answer Date of Assessment Author Actual Lethality/Medical Dam age Code (Most Lethal Attempt) 3 07/19/2022 2:00 PM EDT Kathleen Bond RN Potential Lethality Code (Mo st Lethal Attempt) 1 07/19/2022 2:00 PM EDT Maliha Bond RN Most Lethal Attempt Date 07/19/2022 2:00 PM EDT Maliha Bond RN * Actual/Potential Lethality (Most Recent Attempt) Question Answer Date of Assessment Author Most Recent Attempt Date 07/19/2022 2:00 PM EDT Maliha Bond RN Actual Lethality/Medical Dam age Code (Most Recent Attempt) 3 07/19/2022 2:00 PM EDT Kathleen Bond RN Potential Lethality Code (Mo st Recent Attempt) 1 07/19/2022 2:00 PM EDT Maliha Bond RN * Actual/Potential Lethality (Initial/First Attempt) Question Answer Date of Assessment Author Initial/First Attempt Date [id number] 07/19/2022 2:0 0 PM EDT Maliha Bond RN Actual Lethality/Medical Dam age Code (Initial/First Attempt) 3 07/19/2022 2:00 PM EDT Giacomo Bond RN Potential Lethality Code (Initial/First Attempt) 1 07/19/2022 2:00 PM EDT Morgan Bond RN * Calculated C-SSRS Risk Score (Lifetime/Recent) Answer Date of Assessment Author High Risk 07/19/2022 2:00 PM EDT Maximo Bond RN * Suicidal Ideation Question Answer Date of Assessment Author 1. Wish to be (Lifetime) No 07/19/2022 2:00 PM EDT Maliha Bond RN 2. Non-Specific Active Suici david Thoughts (Lifetime) No 07/19/2022 2:00 PM EDT Maliha Bond RN 3. Active Suicidal Ideation with any Methods (Not Plan) Without Intent to Act (Lifetime) No 07/19/2022 2:00 PM EDT Gayathri Bond sa, RN 4. Active Suicidal Ideation with Some Intent to Act, Without Specific Plan (Lifetime) No 07/19/2022 2:00 PM EDT Gayathri Bond sa, RN 5. Active Suicidal Ideation with Specific Plan and Intent (Lifetime) No 07/19/2022 2:00 PM EDT Maliha Bond RN 1. Wish to be (Past 1 Month) Yes 2:00 PM EDT Maliha Bond RN 2. Non-Specific Active Suici david Thoughts (Past 1 Month) Yes 07/19/2022 2:00 PM EDT Morgan Bond RN 3. Active Suicidal Ideation with any Methods (Not Plan) Without Intent to Act (Past 1 Month) Yes 07/19/2022 2:00 PM EDT Giacomo Bond RN 4. Active Suicidal Ideation with Some Intent to Act, Without Specific Plan (Past 1 Month) Yes 07/19/2022 2:00 PM EDT Giacomo Bond RN 5. Active Suicidal Ideation with Specific Plan and Intent (Past 1 Month) Yes 07/19/2022 2:00 PM EDT Maliha Bond RN * Suicidal Behavior Question Answer Date of Assessment Author Actual Attempt (Lifetime) Yes 07/19/2022 2:00 PM EDT Maliha Bond RN Total Number of Actual Attem pts (Lifetime) 1 07/19/2022 2:00 PM EDT Maliha Bond RN Has subject engaged in non-suicidal self-injurious behavior? (Lifetime) No 07/19/2022 2:00 PM EDT Maliha Bond RN Interrupted Attempts (Lifetime) No 2:00 PM EDT Maliha Bond RN Aborted or Self-Interrupted Attempt (Lifetime) Yes 07/19/2022 2:00 PM EDT Maliha Bond RN Total Number of Aborted or Self-Interrupted Attempts (Lifetime) 1 07/19/2022 2:00 PM EDT Maliha Bond RN Actual Attempt (Past 3 Months) Yes 07/19/2022 2:00 PM EDT Maliha Bond RN Total Number of Actual Attem pts (Past 3 Months) 1 07/19/2022 2:00 PM EDT Maliha Bond RN Aborted or Self-Interrupted Attempt (Past 3 Months) Yes 07/19/2022 2:00 PM EDT Morgan Bond RN Total Number of Aborted or Self-Interrupted Attempts (Past 3 Months) 1 07/19/2022 2:00 PM EDT Maliha Bond RN documented as of this encounter Plan of Treatment Not on file documented as of this encounter Procedures Procedure Name Priority Date/Time Associated Diagnosis Comments MULTI DRUG RESISTANCE TEST Routine 07/19/2022 11:27 AM EDT Encounter for general adult medical examination without abnormal findings documented in this encounter Results * Multi Drug Resistance Test (07/19/2022 11:27 AM EDT) Culture No growth at day 2 07/21/2022 11:11 AM EDT [facility] Swab (Nares and Maria R Rectal) 07/19/2022 11:27 AM EDT 07/19/2022 5:50 PM EDT Maxwell De Jesus MD LAB MICROBIOLOGY - GENERAL ORDERABLES Final Result Performing Organization Address City/State/[facility] Co de Phone Number HEALTH[facility]ARE [facility] [address] [place] [phone] documented in this encounter Visit Diagnoses Diagnosis Encounter for general adult medical examination without abnormal findings documented in this encounter Care Teams Beaming Inspector Relationship Specialty Start Date End Date Reynold Khan MD [address] [place] [address] PCP - General 07/25/20 documented as of this encounter
--- OUTSIDE RECORDS SUMMARY | 2024-09-05 14:02 | XMS_ITS | Referral Summary ---
Author Organization [employer] [facility] [employer] Address [address] [place] [address] Care Team Providers Care Computer Engineering Professor Name Role Phone Mari Carrero APRN Primary Care Provider Allergies Active Allergy Reactions Criticality Noted Date Comments Cephalosporins Low 07/16/2022 Other reaction(s): RASH/DIFF BREATHING, Unknown - Patient states they do not know rxn details Ibuprofen Hives High 07/16/2022 Other reaction(s): NA-NAUSEA/VOMITING, NAUSEA AND VOMITING Levofloxacin Hives High 07/16/2022 Other reaction(s): NAUSEA AND VOMITING, Unknown allergy reaction Patient states she was hospitalized and had to get a shot, but denies SOB Morphine Hives High 07/16/2022 Other reaction(s): BOTTOMS OUT UP , HYPOTENSION Nickel High 06/15/2023 Other reaction(s): I-RASH Nitrofurantoin 06/15/2023 Other reaction(s): Unknown allergy reaction Silk Low 06/15/2023 Other reaction(s): I-RASH Sulfa (Sulfonamide Antibiotics) Other (See Comments) 06/23/2023 Tape, Occlusive Adhesive 06/23/2023 Other reaction(s): Blisters, Rash 1 Surgical Medications alendronate (FOSAMAX) 70 MG tablet Take 1 tablet (70 mg total) by mouth once a week. 4 Active atenoloL (TENORMIN) 25 MG tablet Take 1 tablet (25 mg total) by mouth daily. 4 Active cetirizine (ZyrTEC) 10 MG tablet Take 1 tablet (10 mg total) by mouth daily. 4 Active fluticasone propionate (FLONASE) 50 mcg/actuation nasal spray 1 spray daily. 4 Active levothyroxine (SYNTHROID, LEVOTHROID) 50 MCG tablet Take 1 tablet (50 mcg total) by mouth daily. 4 Active metFORMIN (GLUCOPHAGE) 850 MG tablet Take 1 tablet (850 mg total) by mouth nightly. 4 Active omeprazole (PriLOSEC) 40 MG capsule Take 1 capsule (40 mg total) by mouth 2 (two) times daily. 4 Active oxybutynin (DITROPAN-XL) 10 MG 24 hr tablet Take 1 tablet (10 mg total) by mouth daily. 4 Active polyethylene glycol (GLYCOLAX) 17 gram/dose powder Take by mouth daily. 4 Active potassium chloride (MICRO-K) 10 mEq CR capsule Take 1 capsule (10 mEq total) by mouth 2 (two) times daily. 4 Active rosuvastatin (CRESTOR) 20 MG tablet Take 1 tablet (20 mg total) by mouth nightly. 4 Active sertraline (ZOLOFT) 100 MG tablet Take 1 tablet (100 mg total) by mouth daily. 4 Active traZODone (DESYREL) 100 MG tablet Take 1 tablet (100 mg total) by mouth nightly. 4 Active metoclopramide (REGLAN) 5 MG tablet Take 1 tablet (5 mg total) by mouth. Active albuterol HFA (VENTOLIN HFA) 90 mcg/actuation inhaler 2 puffs. 4 Active Symbicort 80-4.5 mcg/actuation inhaler 2 puffs. 4 Active busPIRone (BUSPAR) 5 MG tablet Take 1 tablet (5 mg total) by mouth 2 (two) times daily. 4 Active cyclobenzaprine (FLEXERIL) 10 MG tablet Take 1 tablet (10 mg total) by mouth every night as needed. 4 Active pancrelipase, Bvq-Kixh-Wjhg, (Creon) 36,000-114,000- 180,000 unit CpDR capsule Take 2 capsules (72,000 units of lipase total) by mouth 5 (five) times daily Take 1 capsule with snacks.. 300 capsule 11 4 08/10/19 25 Active Problems Problem Noted Date Diagnosed Date Iron deficiency anemia 09/09/2023 Hoarseness 09/09/2023 09/09/2023 Gram-negative bacterial infection 09/09/2023 09/09/2023 Dizziness 09/09/2023 09/09/2023 Colon wall thickening 09/09/2023 09/09/2023 Blood in urine 09/09/2023 09/09/2023 Bladder spasms 09/09/2023 09/09/2023 At risk for sleep apnea 09/09/2023 09/09/19 24 Asymptomatic COVID-19 virus infection 09/09/2023 09/09/2023 Abnormal vision 09/09/2023 09/09/2023 Overview (09/09/2023): 2wearing corrective lenses Abdominal bloating 09/09/2023 09/09/2023 Lower extremity edema 09/09/2023 09/09/2023 Nausea 09/09/2023 09/09/2023 Numbness and tingling of both lower extremities 09/09/2023 09/09/2023 Cavitary lesion of lung 09/09/2023 09/09/19 24 Community acquired pneumonia 09/09/2023 Lung nodule 09/09/2023 09/09/2023 Pneumonia with cavity of lung 09/09/2023 Pneumonia 09/09/2023 09/09/2023 Overview (09/09/2023): 3in the early Sebaceous cyst of labia 09/09/2023 09/09/19 24 Stress incontinence 09/09/2023 09/09/2023 Back pain 09/09/2023 09/09/2023 Chest pain 09/09/2023 09/09/2023 Heart failure 09/09/2023 09/09/2023 Diarrhea 09/09/2023 09/09/2023 Vomiting and diarrhea 09/09/2023 09/09/2023 Vomiting 09/09/2023 09/09/2023 Arthritis 09/09/2023 09/09/2023 Thyromegaly 09/09/2023 09/09/2023 Sleep apnea 09/09/2023 09/09/2023 Overview (09/09/2023): 4H/O of sleep apnea Lost weight over 100 lbs High blood pressure 08/10/2023 08/10/2023 Gastritis 08/10/2023 08/10/2023 COPD (chronic obstructive pulmonary disease) 08/10/2023 ROM (right otitis media) 08/10/2023 024 Shortness of breath 08/10/2023 08/10/2023 UTI (urinary tract infection), bacterial 024 08/10/2023 Abdominal pain 08/10/2023 08/10/2023 Opioid overdose 08/10/2023 08/10/2023 Obesity 08/10/2023 08/10/2023 Multiple joint pain 08/10/2023 08/10/2023 Hypoxia 08/10/2023 08/10/2023 Hypoxemia 08/10/2023 08/10/2023 History of COPD 08/10/2023 08/10/2023 General weakness 08/10/2023 08/10/2023 Elevated erythrocyte sedimentation rate 08/10/19 24 08/10/2023 Lymphocytic colitis 08/10/2023 08/10/2023 Buchanan's esophagus without dysplasia 06/23/2023 06/23/2023 Hyperlipidemia 06/23/2023 06/23/2023 Hypothyroidism 06/23/2023 06/23/2023 Anxiety 06/23/2023 06/23/2023 Tobacco abuse 06/23/2023 06/23/2023 Panic attack 06/23/2023 06/23/2023 Hypertension 06/23/2023 06/23/2023 Diarrhea, unspecified type 06/23/2023 Abdominal pain, unspecified abdominal location 0 06/23/2023 Epidermoid cyst 12/23/2020 08/10/2023 Congestive heart failure 10/29/2020 024 Chronic obstructive pulmonary disease 10/29/2020 06/23/2023 Current smoker 10/29/2020 08/10/2023 Hypercholesterolemia 10/29/2020 08/10/2023 Resolved Problems Problem Noted Date Diagnosed Date Resolved Date Type 2 diabetes mellitus 06/23/2023 06/23/2023 Osteopenia 06/23/2023 06/23/2023 08/10/2023 Dysphagia, unspecified type 06/23/2023 08/10/2023 Depressive disorder 10/29/2020 06/23/2023 08/10/19 24 Immunizations Name Administration Dates Next Due Influenza High Dose Preservative Free IM ([id number] ) 03/31/2020 Influenza Quad-qiv Non Pf 01/23/2018 Influenza Three-TIV Non-PF 4+YRS IM 01/23/2018 Influenza Three-TIV Non-PF 5+ YR 01/06/2010 Influenza Three-tiv Non-pf 01/06/2010 Influenza, High Dose 03/31/2020 Pneumococcal Conjugate (Prevnar) 13-Valent 03/31 Pneumococcal Polysaccharide (Pneumovax) 03/19/19 11 Social History Tobacco Use Types Packs/Day Years Used Date Smoking Tobacco: Every Day Cigarettes Smokeless Tobacco: Never Alcohol Use Standard Drinks/Week Comments Never 0 (1 standard drink = 0.6 oz pur e alcohol) Interpersonal Safety Answer Date Record ed Family or friends hurt you Not on file 05/24 Family or friends insult you Not on file Family or friends threaten you Not on file 0 05/25/2023 Family or friends scream or curse at you Not on file 05/25/2023 Housing Stability Answer Date Recorded Living situation today Not on file Living situation problems Not on file 2023 Food Insecurity Answer Date Recorded Food run out past 12 months Not on file 05/12 Food did not last past 12 months Not on file 05/25/2023 Employment Answer Date Recorded Help finding and keeping a job Not on file 0 05/25/2023 Family and Community Support Answer Brian e Recorded Help with Day to Day Activities Not on file 05/25/2023 Feeling Lonely or Isolated Not on file 05/24 Educational Attainment Answer Date Silviano rded Speak language other than [place] at home Not on file 05/25/2023 Want help with school or training Not on file 05/25/2023 Depression Answer Date Recorded PHQ-2 Risk Not on file 05/25/2023 Disabilities Answer Date Recorded Difficulty concentrating Not on file 024 Difficulty doing errands alone Not on file 0 05/25/2023 Substance Use Answer Date Recorded Used prescription meds for non-medical reasons N ot on file 05/25/2023 Used illegal drugs past 12 months Not on file 05/25/2023 Comments No Sex and Gender Information Value Date Recorded Sex Assigned at Not on file Legal Sex Female 6:09 PM CDT Gender Identity Not on file Sexual Orientation Not on file Last Filed Vital Signs Vital Sign Reading Time Taken Comments Blood Pressure 110/55 08/10/2023 2:36 PM EDT Pulse 64 08/10/2023 2:36 PM EDT Temperature 36.4 C (97.5 F) 08/10/2023 2:36 PM EDT Respiratory Rate 16 08/10/2023 2:36 PM EDT Oxygen Saturation 100% 08/10/2023 2:36 PM EDT Inhaled Oxygen Concentration - - Weight 81.6 kg (179 lb 12.8 oz) 024 12:41 PM EDT Height 157.5 cm (5' 2 ) 08/10/2023 12:4 1 PM EDT Body Mass Index 32.89 08/10/2023 12:41 PM EDT Plan of Treatment Not on file Insurance [facility] MEDICARE ADVANTAGE Care Teams Computer Engineering Professor Relationship Specialty Start Date End Date Mari Carrero APRN [address] [place], [place] [id number] PCP - General Nurse Practitioner 08/10/23
--- OUTSIDE RECORDS SUMMARY | 2024-09-05 14:02 | XMS_ITS | Encounter Summary ---
Author Organization [employer] [facility] [employer] Address [address] [place] [address] Care Team Providers Care Release Specialist Name Role Phone Mari Carrero APRN Primary Care Provider Encounter Details Date Type Department Care Team (Late st Contact Info) Description 11/04/2020 Transcribed Document [facility] Family Medicine [address] [place] [id number] ProviderRoselyn MD [address] [place] [id number] Social History Tobacco Use Types Packs/Day Years Used Date Smoking Tobacco: Never Assessed Comments Unknown Sex and Gender Information Value Date Recorded Sex Assigned at Not on file Legal Sex Female 6:09 PM CDT Gender Identity Not on file Sexual Orientation Not on file documented as of this encounter Miscellaneous Notes * [employer]ner Conversion Note - Roselyn Bocanegra MD - 11/04/2020 1:16 PM CDT DATE OF ADMISSION: 11/05/2020 ADMITTING PHYSICIAN: DONY CERVANTES MD The patient is going for surgery tomorrow on the 05 of November. PREOPERATIVE DIAGNOSES: 1. Inflammatory mass of the mons pubis. 2. Congestive heart failure. 3. Chronic obstructive pulmonary disease. 4. Irritable bowel syndrome. IDENTIFICATION: The patient is a pleasant 65-year-old female referred to me by Dr. Main Paez in [place], [place], with a problem of an inflammatory painful mons pubis, what appears to be abscess. He has drained it to some degree and placed her on antibiotics. She has had this thing for over year evidently, but it continues to be present and is bothering her more of late. The patient has had a CAT scan for other reasons and she has a little area on her pancreas that is being worked up, but with this inflammatory problem and the amount of symptoms she is having, decision is to go ahead and proceed with incision and drainage of this inflammatory mass and debridement and possible drain placement. We have talked to the patient about risks including bleeding, infection, reaction for anesthesia. We discussed that. PAST MEDICAL HISTORY/OPERATIONS: She has had a breast biopsy, section x2. She has had a cholecystectomy, D and C, knee surgery, urethral dilatation. MEDICATIONS: Include, 1. Tylenol No. 3. 2. Atenolol. 3. Diazepam. 4. Duloxetine. 5. Furosemide. 6. Levothyroxine. 7. Meclizine. 8. Metformin. 9. Omeprazole. 10. K-citrate. 11. Trazodone. ALLERGIES: She is allergic to sulfa, morphine, Macrobid, Levaquin, ibuprofen, and cephalosporins. SOCIAL HISTORY: The patient is a one xmii-[id number]-cln cigarette smoker. PHYSICAL EXAMINATION: GENERAL: Shows a well-developed, elderly white female, in no acute distress. VITAL SIGNS: Her weight is 193. Blood pressure is 113/52. NECK: Supple. Thyroid palpates normal. CHEST: Clear to auscultation. CARDIOVASCULAR: Normal to my exam. ABDOMEN: Soft with some tenderness in the lower abdomen over the mons pubis. : Shows a very tender 4 cm or so mass on the right side of the mons pubis. The vulva appears normal and there is no evidence of vaginal extension. ASSESSMENT: As above. PLAN: As above. /[id number] MD AMEE Del Angel/AQ / LSBianca / MODL Electronically signed by Yahir Schultz Conversion Installation [employer] Maintenance Executive Cerner at 06/27/2022 8:21 PM CDT documented in this encounter Plan of Treatment Not on file documented as of this encounter Visit Diagnoses Not on filedocumented in this encounter Care Teams Release Specialist Relationship Specialty Start Date End Date Mari Carrero, DAILY RELEASE AND DUPE PRINTER [address] [place] [address] PCP - General Nurse Practitioner 08/10/23 documented as of this encounter
--- OUTSIDE RECORDS SUMMARY | 2024-09-05 14:02 | XMS_ITS | Clinical Summary ---
Author Organization [employer] [facility] [employer] Address [address] [place] [address] Care Team Providers Care Disaster Response Director Name Role Phone Mari Carrero APRN Primary Care Provider [phone] Allergies Active Allergy Reactions Criticality Noted Date [...] every night as needed. 4 Active pancrelipase, Jjw-Tsvw-Omrb, (Creon) 36,000-114,000- 180,000 unit CpDR capsule Take [...] Due Influenza High Dose Preservative Free IM ([id number] ) 03/31/2020 Influenza Quad-qiv Non Pf 01/23/2018 Influenza Three-TIV Non-PF 4+YRS IM 01/23/2018 Influenza Three-TIV Non-PF 5+ YR 01/06/2010 Influenza Three-tiv Non-pf 01/06/2010 Influenza, High Dose 03/31/2020 Pneumococcal Conjugate (Prevnar) 13-Valent 03/31 Pneumococcal Polysaccharide (Pneumovax) 03/19/19 11 Family History Medical History Relation Name Comments Heart failure Father Lung cancer Mother Cancer Sister 1 Pancreatitis Sister 2 Relation Name Status Comments Father Mother Sister 1 Sister 2 Social History Tobacco Use Types Packs/Day Years [...] Date Silviano rded Speak language other than Greek at home Not on file 05/25/2023 Want help with school or training Not on file 05/25/2023 Depression Answer Date Recorded PHQ-2 Risk Not on file 05/25/2023 Disabilities Answer Date Recorded Difficulty concentrating Not on file Difficulty doing errands alone Not on file [...] 08/10/2023 12:41 PM EDT Plan of Treatment Health Maintenance Due Date Last Done Comments CT Colonography 1954 DXA SCAN 1954 FOBT/FIT 1954 Fit-DNA (Cologuard) 1954 Sigmoidoscopy 1954 Depression Screening (12+) 1966 Hepatitis C Screening 1972 DTAP/TDAP/TD VACCINES (1 - Tdap) 1973 Breast Cancer Screening 1994 Shingles Vaccine (Zoster) (1 of 2) 2004 Respiratory Syncytial Virus (RSV) Adult or (1 - Risk 60-74 years 1-dose series) 2014 COVID-19 VACCINE (2 - 2023-2 5 season) 2023 06/20/2020 Falls Risk Screening 03/14/2024 Medicare Initial AWV [id number] 05/13/2024 Tobacco Cessation Counseling and Screening (12+) 08/09/2024 08/10/2023 Influenza Vaccine (Season Ended) 2024 03/31/2020, 03/31/2020, 01/23/2018, Additional history exists Pneumococcal 50+ years (3 of 3 - PCV20 or PCV21) 03/31/2025 03/31/2020, 03/19/2010 Colonoscopy 08/09/2028 08/10/2023 Colorectal Cancer Screening 08/09/2028 Insurance [employer] MEDICARE ADVANTAGE Care Teams Disaster Response Director Relationship Specialty Start Date End Date Mari Carrero APRN [address] [place] [id number] PCP - General Nurse Practitioner 08/10/23
--- OUTSIDE RECORDS SUMMARY | 2024-09-05 14:02 | XMS_ITS | Encounter Summary ---
Author Organization [employer] Address [address] [place] [address] Care Team Providers Care Clerk General Office Name Role Phone Mari Carrero APRN Primary Care Provider Encounter Details Date Type Department Care Team (Late st Contact Info) Description 11/05/2020 Transcribed Document [facility] [place] [facility] [place] [address] ProviderRoselyn MD [address] [place] [id number] Social History Tobacco Use Types Packs/Day Years Used Date Smoking Tobacco: Never Assessed Comments Unknown Sex and Gender Information Value Date Recorded Sex Assigned at Not on file Legal Sex Female 6:09 PM CDT Gender Identity Not on file Sexual Orientation Not on file documented as of this encounter Miscellaneous Notes * Cerner Conversion Note - Roselyn Bocanegra MD - 11/05/2020 12:42 PM CDT Patient Education Materials Follows:Disease Incision and Drainage, Care After This sheet gives you information about how to care for yourself after your procedure. Your health care provider may also give you more specific instructions. If you have problems or questions, contact your health care provider. What can I expect after the procedure? After the procedure, it is common to have: ??? Pain or discomfort around the incision site. ??? Blood, fluid, or pus (drainage) from the incision. ??? Redness and firm skin around the incision site. Follow these instructions at home: Medicines ??? Take hgpn-lor-hkbwbpd and prescription medicines only as told by your health care provider. ??? If you were prescribed an antibiotic medicine, use or take it as told by your health care provider. Do not stop using the antibiotic even if you start to feel better. Wound care Follow instructions from your health care provider about how to take care of your wound. Make sure you: ??? Wash your hands with soap and water before and after you change your bandage (dressing). If soap and water are not available, use hand fountain server. ??? Change your dressing and packing as told by your health care provider. ? If your dressing is dry or stuck when you try to remove it, moisten or wet the dressing with saline or water so that it can be removed without harming your skin or tissues. ? If your wound is packed, leave it in place until your health care provider tells you to remove it. To remove the packing, moisten or wet the packing with saline or water so that it can be removed without harming your skin or tissues. ??? Leave stitches (sutures), skin glue, or adhesive strips in place. These skin closures may need to stay in place for 2 weeks or longer. If adhesive strip edges start to loosen and curl up, you may trim the loose edges. Do not remove adhesive strips completely unless your health care provider tells you to do that. Check your wound every day for signs of infection. Check for: ??? More redness, swelling, or pain. ??? More fluid or blood. ??? Warmth. ??? Pus or a bad smell. If you were sent home with a drain tube in place, follow instructions from your health care provider about: ??? How to empty it. ??? How to care for it at home. General instructions ??? Rest the affected area. ??? Do not take baths, swim, or use a hot tub until your health care provider approves. Ask your health care provider if you may take showers. You may only be allowed to take sponge baths. ??? Return to your normal activities as told by your health care provider. Ask your health care provider what activities are safe for you. Your health care provider may put you on activity or lifting restrictions. ??? The incision will continue to drain. It is normal to have some clear or slightly bloody drainage. The amount of drainage should lessen each day. ??? Do not apply any creams, ointments, or liquids unless you have been told to by your health care provider. ??? Keep all follow-up visits as told by your health care provider. This is important. Contact a health care provider if: ??? Your cyst or abscess returns. ??? You have a fever or chills. ??? You have more redness, swelling, or pain around your incision. ??? You have more fluid or blood coming from your incision. ??? Your incision feels warm to the touch. ??? You have pus or a bad smell coming from your incision. ??? You have red streaks above or below the incision site. Get help right away if: ??? You have severe pain or bleeding. ??? You cannot eat or drink without vomiting. ??? You have decreased urine output. ??? You become short of breath. ??? You have chest pain. ??? You cough up blood. ??? The affected area becomes numb or starts to tingle. These symptoms may represent a serious problem that is an emergency. Do not wait to see if the symptoms will go away. Get medical help right away. Call your local emergency services (911 in the [place] Do not drive yourself to the hospital. Summary ??? After this procedure, it is common to have fluid, blood, or pus coming from the surgery site. ??? Follow all home care instructions. You will be told how to take care of your incision, how to check for infection, and how to take medicines. ??? If you were prescribed an antibiotic medicine, take it as told by your health care provider. Do not stop taking the antibiotic even if you start to feel better. ??? Contact a health care provider if you have increased redness, swelling, or pain around your incision. Get help right away if you have chest pain, you vomit, you cough up blood, or you have shortness of breath. ??? Keep all follow-up visits as told by your health care provider. This is important. This information is not intended to replace advice given to you by your health care provider. Make sure you discuss any questions you have with your health care provider. Document Revised: 01/29/2019 Document Reviewed: 01/29/2019 [employer] Patient Education ? 2020 [employer]. Pharmacology General Anesthesia, Adult, Care After This sheet gives you information about how to care for yourself after your procedure. Your health care provider may also give you more specific instructions. If you have problems or questions, contact your health care provider. What can I expect after the procedure? After the procedure, the following side effects are common: ??? Pain or discomfort at the IV site. ??? Nausea. ??? Vomiting. ??? Sore throat. ??? Trouble concentrating. ??? Feeling cold or chills. ??? Weak or tired. ??? Sleepiness and fatigue. ??? Soreness and body aches. These side effects can affect parts of the body that were not involved in surgery. Follow these instructions at home: For at least 24 hours after the procedure: ??? Have a responsible adult stay with you. It is important to have someone help care for you until you are awake and alert. ??? Rest as needed. ??? Do not: ? Participate in activities in which you could fall or become injured. ? Drive. ? Use heavy machinery. ? Drink alcohol. ? Take sleeping pills or medicines that cause drowsiness. ? Make important decisions or sign legal documents. ? Take care of children on your own. Eating and drinking ??? Follow any instructions from your health care provider about eating or drinking restrictions. ??? When you feel hungry, start by eating small amounts of foods that are soft and easy to digest (bland), such as toast. Gradually return to your regular diet. ??? Drink enough fluid to keep your urine pale yellow. ??? If you vomit, rehydrate by drinking water, juice, or clear broth. General instructions ??? If you have sleep apnea, surgery and certain medicines can increase your risk for breathing problems. Follow instructions from your health care provider about wearing your sleep device: ? Anytime you are sleeping, including during daytime naps. ? While taking prescription pain medicines, sleeping medicines, or medicines that make you drowsy. ??? Return to your normal activities as told by your health care provider. Ask your health care provider what activities are safe for you. ??? Take mbwl-wyt-txnnjir and prescription medicines only as told by your health care provider. ??? If you smoke, do not smoke without supervision. ??? Keep all follow-up visits as told by your health care provider. This is important. Contact a health care provider if: ??? You have nausea or vomiting that does not get better with medicine. ??? You cannot eat or drink without vomiting. ??? You have pain that does not get better with medicine. ??? You are unable to pass urine. ??? You develop a skin rash. ??? You have a fever. ??? You have redness around your IV site that gets worse. Get help right away if: ??? You have difficulty breathing. ??? You have chest pain. ??? You have blood in your urine or stool, or you vomit blood. Summary ??? After the procedure, it is common to have a sore throat or nausea. It is also common to feel tired. ??? Have a responsible adult stay with you for the first 24 hours after general anesthesia. It is important to have someone help care for you until you are awake and alert. ??? When you feel hungry, start by eating small amounts of foods that are soft and easy to digest (bland), such as toast. Gradually return to your regular diet. ??? Drink enough fluid to keep your urine pale yellow. ??? Return to your normal activities as told by your health care provider. Ask your health care provider what activities are safe for you. This information is not intended to replace advice given to you by your health care provider. Make sure you discuss any questions you have with your health care provider. Document Revised: 03/03/2018 Document Reviewed: 10/14/2017 [employer] Patient Education ? 2020 [employer] Procedures Outpatient Surgery, Adult, Care After These instructions provide you with information about caring for yourself after your procedure. Your health care provider may also give you more specific instructions. Your treatment has been planned according to current medical practices, but problems sometimes occur. Call your health care provider if you have any problems or questions after your procedure. What can I expect after the procedure? After the procedure, it is common to have: ??? Tenderness and numbness at the surgical site. ??? Swelling and bruising around the surgical site. ??? Nausea. Follow these instructions at home: For at least 24 hours after the procedure: ??? Have a responsible adult stay with you. It is important to have someone help care for you until you are awake and alert. ??? Rest as needed. ??? Do not: ? Participate in activities in which you could fall or become injured. ? Drive. ? Use heavy machinery. ? Drink alcohol. ? Take sleeping pills or medicines that cause drowsiness. ? Make important decisions or sign legal documents. ? Take care of children on your own. Activity ??? Return to your normal activities as told by your health care provider. Ask your health care provider what activities are safe for you. ??? Do not lift anything that is heavier than 10 lb (4.5 kg), or the limit that your health care provider tells you, until your health care provider says it is okay. ??? Do not play contact sports until your health care provider says it is okay. Incision care ??? Follow instructions from your health care provider about how to take care of an incision, if you have one. Make sure you: ? Wash your hands with soap and water before you change your bandage (dressing). If soap and water are not available, use hand fountain server. ? Change your dressing as told by your health care provider. ? Leave stitches (sutures), skin glue, or adhesive strips in place. These skin closures may need to stay in place for 2 weeks or longer. If adhesive strip edges start to loosen and curl up, you may trim the loose edges. Do not remove adhesive strips completely unless your health care provider tells you to do that. ??? Check your incision area every day for signs of infection. Check for: ? More redness, swelling, or pain. ? More fluid or blood. ? Warmth. ? Pus or a bad smell. Medicines ??? Take deqh-mfc-unvbalx and prescription medicines only as told by your health care provider. ??? Do not drive or use heavy machinery while taking prescription pain medicines. Eating and drinking ??? Follow the diet recommended by your health care provider. ??? When you are hungry, begin eating light and bland foods such as toast. Gradually return to your regular diet. ??? If you vomit: ? Drink water, juice, or soup when you can drink without vomiting. ? Make sure you have little or no nausea before eating solid foods. General instructions ??? If you have sleep apnea, surgery and certain medicines can increase your risk for breathing problems. Follow instructions from your HCP about wearing your sleep device: ? Anytime you are sleeping, including during daytime naps. ? While taking prescription pain medicines, sleeping medicines, or medicines that make you drowsy. ??? Do not use any tobacco products, such as cigarettes, chewing tobacco, and e-cigarettes, for as long as possible. ??? If you smoke, do not smoke without supervision. ??? Keep all follow-up visits as told by your health care provider. This is important. Contact a health care provider if: ??? You have more redness, swelling, or pain around your incision. ??? You have more fluid or blood coming from your incision. ??? Your incision feels warm to the touch. ??? You have pus or a bad smell coming from your incision. ??? You have a fever. ??? You feel light-headed or you faint. ??? You develop a rash. ??? You keep feeling nauseous or keep vomiting. ??? You have very bad pain, even after taking the medicines your health care provider has prescribed or recommended. ??? You have constipation. Get help right away if: ??? You are unable to pass urine. ??? You have trouble breathing. Summary ??? Have a responsible adult stay with you for at least 24 hours after the procedure. ??? Nausea is common after a procedure. Make sure you have little or no nausea before eating solid foods. Follow the diet recommended by your health care provider. ??? Ask your health care provider what activities are safe for you. This information is not intended to replace advice given to you by your health care provider. Make sure you discuss any questions you have with your health care provider. Document Revised: 05/29/2018 Document Reviewed: 06/20/2016 [employer] Patient Education ? 2020 [employer] documented in this encounter Plan of Treatment Not on file documented as of this encounter Visit Diagnoses Not on filedocumented in this encounter Care Teams Clerk General Office Relationship Specialty Start Date End Date Mari Carrero APRN [address] [address] PCP - General Nurse Practitioner 08/10/23 documented as of this encounter
--- OUTSIDE RECORDS SUMMARY | 2024-09-05 14:02 | XMS_ITS | Clinical Summary ---
Author Organization [facility] Address [address] [place] [address] Care Team Providers Care Waterfront Director Name Role Phone Reynold Khan MD Primary Care Provider [phone] Allergies Active Allergy Reactions Criticality Noted Date Comments Cephalosporins Unknown - Patient states they do not know rxn details Low 07/16/2022 Ibuprofen Hives Medium 07/16/2022 Levofloxacin Hives High 07/16/2022 Patient states she was hospitalized and had to get a shot, but denies SOB Morphine Hives Medium 07/16/2022 Sulfa Drugs Unknown - Patient states they do not know rxn details Low 07/16/2022 Medications * This document contains information received from the source organization and may not represent a complete record from that organization. alendronate (Fosamax) 70 MG tablet Take 70 mg by mouth every 7 (seven) days. Take in the morning with a full glass of water, on an empty stomach, and do not take anything else by mouth or lie down for the next 30 min. Active atenolol (Tenormin) 25 MG tablet Take 25 mg by mouth 1 (one) time each day. Active cholecalciferol (Vitamin D3) 1.25 MG (44302 UT) tablet Take 50,000 Units by mouth 1 (one) time per week. Active fluticasone (Flonase) 50 MCG/ACT nasal spray Administer 1 spray into each nostril 1 (one) time each day. Shake gently. Before first use, prime pump. After use, clean tip and replace cap. Active levothyroxine (Synthroid, Levoxyl) 50 MCG tablet Take 50 mcg by mouth 1 (one) time each day before breakfast. Active metFORMIN (Glucophage) 850 MG tablet Take 850 mg by mouth 1 (one) time each day with breakfast. Active metoclopramide (Reglan) 5 MG tablet Take 5 mg by mouth 1 (one) time each day. Active omeprazole (PriLOSEC) [address] capsule Take 40 mg by mouth 2 (two) times a day. Do not crush or chew. Active polyethylene glycol (Miralax) 17 g packet Take 17 g by mouth 1 (one) time each day. Active potassium chloride CR (Klor-Con) 10 MEQ ER tablet Take 10 mEq by mouth 2 (two) times a day. Do not crush, chew, or split. Active rosuvastatin (Crestor) 20 MG tablet Take 20 mg by mouth every night. Active sertraline (Zoloft) 50 MG tablet Take 50 mg by mouth 1 (one) time each day. Active Active Problems No known active problems Resolved Problems Problem Noted Date Diagnosed Date Resolved Date Intentional acetaminophen ov erdose, initial encounter 07/16/2022 07/19/2022 Social History Tobacco Use Types Packs/Day Years Used Date Smoking Tobacco: Never Assessed Comments Unknown Sex and Gender Information Value Date Recorded Sex Assigned at Not on file Legal Sex Female 8:53 PM EDT Gender Identity Not on file Sexual Orientation Not on file Last Filed Vital Signs Vital Sign Reading Time Taken Comments Blood Pressure 145/72 07/19/2022 4:00 PM EDT Pulse 72 07/19/2022 4:00 PM EDT Temperature 37.3 C (99.2 F) 07/19/2022 4:00 PM EDT Respiratory Rate 16 07/19/2022 4:00 PM EDT Oxygen Saturation 94% 07/19/2022 4:00 PM EDT Inhaled Oxygen Concentration - - Weight 85 kg (187 lb 6.3 oz) 07/17/2022 5:30 AM EDT Height 157.5 cm (5' 2 ) 07/16/2022 9:17 AM EDT Body Mass Index 34.27 07/16/2022 9:17 AM EDT Plan of Treatment Not on file Insurance MEDICARE Advance Directives * Full Code (Latest Code Status on File) Date Activated Date Inactivated Comments 07/16/2022 11:04 AM 07/19/2022 8:44 PM Question Answer Comments Patient has decision-making capacity? No Healthcare Surrogate: Healthcare POA Care Teams Waterfront Director Relationship Specialty Start Date End Date Reynold Khan MD [address] [place] [address] PCP - General 07/25/20
--- OUTSIDE RECORDS SUMMARY | 2024-09-05 14:02 | XMS_ITS | Encounter Summary ---
Author Organization [employer] Address [address] [place] [address] Care Team Providers Care Lead Ramp Agent Name Role Phone Mari Carrero APRN Primary Care Provider Encounter Details Date Type Department Care Team (Late st Contact Info) Description 11/05/2020 Transcribed Document [facility] [place] [facility] [place] [address] ProviderRoselyn MD [address] [place] [id number] Social History Tobacco Use Types Packs/Day Years Used Date Smoking Tobacco: Never Assessed Comments Unknown Sex and Gender Information Value Date Recorded Sex Assigned at Not on file Legal Sex Female 6:09 PM CDT Gender Identity Not on file Sexual Orientation Not on file documented as of this encounter Miscellaneous Notes * Cerner Conversion Note - Roselyn Bocanegra MD - 11/05/2020 4:52 PM CDT DATE OF PROCEDURE: 11/05/2020 SURGEON: Zane Redman MD PREOPERATIVE DIAGNOSIS: Symptomatic 5 to 6 cm mons pubic inflammatory mass. POSTOPERATIVE DIAGNOSIS: Symptomatic 5 to 6 cm mons pubic inflammatory mass. PROCEDURE PERFORMED: Excision of 6 cm inflamed mons pubic mass. COMPLICATIONS: Without. IDENTIFICATION: Patient is a pleasant 65-year-old female with multiple comorbidities with COPD and other issues, but had this chronic pelvic mass, was drained by Dr. Main Paez in [facility], was purulent, but it has been present for about a year and it waxes and wanes, but it has gotten more symptomatic and painful, so decision to remove it was made versus opening in debridement. So the patient understood the pros and cons, the risks of infection, bleeding, reaction to anesthesia, those things were discussed at length. DESCRIPTION OF PROCEDURE: Patient was taken to the operating room, underwent general anesthesia, was placed in the Kofi stirrups with pneumatic compression stockings functioning. After prepping and draping the area, the time-out was completed and correct. I took a #10 blade and cut down over the top of the mass and it was somewhat on the right side just above the symphysis pubis in the mons pubic area and we dissected down this firm area and there was a little bit of foul smelling purulence from one section of it, but it is really a fibrotic mass that we very carefully dissected free. I took a fair amount of time. We used the monopolar coag current with the Metzenbaum scissors and then once it was finally enucleated, we irrigated it with Betadine profusely. There was an opening in the periclitoral area that we had to close with 3-0 Vicryl running suture, but because of the infectious area, we decided to use louie and sutures on the top part, but we put a Rogers drain in for drainage and sutured it to the skin with 2-0 Vicryl and closed the skin with louie. The patient was taken to postop recovery room in satisfactory condition and she was given and clindamycin as preop clinical antibiotics. ESTIMATED BLOOD LOSS: Approximately 15 to 20 mL. /[id number] Zane Redman MD LSB/AQ / LSB / MODL /[id number] documented in this encounter Plan of Treatment Not on file documented as of this encounter Visit Diagnoses Not on filedocumented in this encounter Care Teams Lead Ramp Agent Relationship Specialty Start Date End Date Mari Carrero APRN [address] [address] PCP - General Nurse Practitioner 08/10/23 documented as of this encounter
--- OUTSIDE RECORDS SUMMARY | 2024-09-05 14:02 | XMS_ITS | Encounter Summary ---
Author Organization [facility] [employer] Address [address] [place] [address] Care Team Providers Care Forest Logistics Manager Name Role Phone Mari Carrero APRN Primary Care Provider Encounter Details Date Type Department Care Team (Late st Contact Info) Description 11/05/2020 Transcribed Document [facility] [place] [facility] [place] [address] ProviderRoselyn MD [address] [place] [id number] Social History Tobacco Use Types Packs/Day Years [...] 11/05/2020 12:49 PM CDT [facility] PreOp Summary Primary Physician: DONY CERVANTES MD-OBG Finalized Date/Time: 11/05/20 17:26:06 Pt. Name: ANN MARIE DOMINGUEZ /Sex: 1955 Female Med Rec #: [id number] Physician: DONY CERVANTES MD-OBG Financial #: [id number] Pt. Type: O Room/Bed: Admit/Disch: 11/05/20 09:46:00 - [place] [facility] [place] Times Entry 1 In Preop 11/05/20 09:55:00 Ready for Holding n/a Room Patient Ready for 11/05/20 10:30:00 Surgery Patient Out of Preop 11/05/20 12:20:00 Patient Out of n/a Holding Room Last Modified By: Katelyn Ga RN 11/05/20 17:26:05 [facility] PreOp Case Times Audit 11/05/20 17:26:05 Direct Care Specialist: SULMA Modifier: [id number] <+> 1 Patient Out of Preop Finalized By: Katelyn Ga, RN Document Signatures Signed By: Katelyn Ga RN 11/05/20 17:26 Electronically signed by Lonnie Schultz Conversion Sales Representative Advertising Cerner at 06/27/2022 8:20 PM CDT documented in this encounter Plan of Treatment Not on file documented as of this encounter Visit Diagnoses Not on filedocumented in this encounter Care Teams Forest Logistics Manager Relationship Specialty Start Date End Date CarreroAnae, STEEL PICKLER [address] [place] [address] PCP - General Nurse Practitioner 08/10/23 documented as of this encounter
--- OUTSIDE RECORDS SUMMARY | 2024-09-05 14:02 | XMS_ITS | Encounter Summary ---
Author Organization [facility] [employer] Address [address] [place] [address] Care Team Providers Care Anatomy Teacher Name Role Phone Mari Carrero APRN Primary Care Provider [phone] Encounter Details Date Type Department Care Team (Late st Contact Info) Description 11/05/2020 Transcribed Document [facility] [place] [facility] [address] ProviderRoselyn MD [address] [place] [address] [id number] Social History Tobacco Use Types Packs/Day Years Used Date Smoking Tobacco: Never Assessed Comments Unknown Sex and Gender Information Value Date Recorded Sex Assigned at Not on file Legal Sex Female 6:09 PM CDT Gender Identity Not on file Sexual Orientation Not on file documented as of this encounter Miscellaneous Notes * Cerner Conversion Note - Roselyn ProviderMD - 11/05/2020 12:49 PM CDT [facility] Main OR PACU Summary Primary Physician: DONY CERVANTES MD-OBG Finalized Date/Time: 11/05/20 15:08:22 Pt. Name: ANN MARIE DOMINGUEZ /Sex: 1955 Female Med Rec #: [id number] Physician: DONY CERVANTES MD-OBG Financial #: [id number] Pt. Type: O Room/Bed: Admit/Disch: 11/05/20 09:46:00 - Institution: [facility] Main OR PACU Case Times Entry 1 In PACU I 11/05/20 13:56:00 Ready for PACU 11/05/20 14:55:00 Discharge Discharge from PACU 11/05/20 14:55:00 I Last Modified By: BLANCA KEYS RN 11/05/20 15:08:20 Finalized By: BLANCA KEYS, RN Document Signatures Signed By: BLANCA KEYS RN 11/05/20 15:08 Electronically signed by [facility] Conversion Director External Communications Cerner at 06/27/2022 8:34 PM CDT documented in this encounter Plan of Treatment Not on file documented as of this encounter Visit Diagnoses Not on filedocumented in this encounter Care Teams Anatomy Teacher Relationship Specialty Start Date End Date Mari Carrero, SOCIAL MEDIA MARKETING MANAGER [address] [place] [address] PCP - General Nurse Practitioner 08/10/23 documented as of this encounter
--- OUTSIDE RECORDS SUMMARY | 2024-09-05 14:03 | XMS_ITS | Encounter Summary ---
Author Organization [employer] Address [address] [place] [address] Care Team Providers Care Auto Body Painter Name Role Phone Mari Carrero APRN Primary Care Provider [phone] Encounter Details Date Type Department Care Team (Late st Contact Info) Description 11/05/2020 Transcribed Document [facility] [place] [address] [place] [address] ProviderRoselyn MD [address] [place], [place] [address]861 Social History Tobacco Use Types Packs/Day Years Used Date Smoking Tobacco: Never Assessed Comments Unknown Sex and Gender Information Value Date Recorded Sex Assigned at Not on file Legal Sex Female 6:09 PM CDT Gender Identity Not on file Sexual Orientation Not on file documented as of this encounter Miscellaneous Notes * Cerner Conversion Note - Historical ProviderMD - 11/05/2020 10:40 AM CDT PAT Adult Entered On: 11/05/2020 10:45 EDT Performed On: 11/05/2020 10:40 EDT by Alisha Munoz Rn Vital Measurements Temperature Source : Temporal artery scanning Temperature Mode : Fahrenheit Temperature, Fahrenheit : 98.8 Deg F Clinical Temperature, C : 37.1 Deg C Peripheral Pulse Rate : 89 bpm Respiratory Rate : 16 Breaths/Min Systolic Blood Pressure : 147 mmHg (HI) Diastolic Blood Pressure : 67 mmHg Oxygen Saturation : 92 % (LOW) Oxygen Therapy Mode : Room air Alisha Munoz Rn - 11/05/2020 10:40 EDT Pain Assessment Pain Assessment : Initial assessment Pain Scale Used : 0-10 Scale Pain Radiation : No Alisha Munoz Rn - 11/05/2020 10:40 EDT Height and Weight, Clinical Dosing Height Source : Stated Height Entry Format : [place] Height, Feet : 5 ft(Converted to: 152 cm, 60 Inch) Height, Inches : 2 Inch(Converted to: 0 ft 2 Inch, 5.08 cm) Clinical Height : 157.48 cm Weight Source : Standing scale Weight Entry Format : [place] Clinical Dosing Weight : 85.91 kg Weight, Pounds : 189 lb Body Surface Area (BSA) : 1.87 m2 Body Mass Index : 34.6 kg/m2 (HI) [place] Body Weight : 50 kg Alisha Munoz Rn - 11/05/2020 10:40 EDT Health Histories Smoking Status : 10 or more cigarettes (1/2 pack or more)/day in last 30 days Smokeless Tobacco Status : Never Desires Tobacco Cessation Medication : No Reason for No Tobacco Cessation Medication : Refuses FDA approved medications Alisha Munoz Rn - 11/05/2020 10:40 EDT Social History (As Of: 11/05/2020 10:45:58 EDT) Tobacco: Smoking Status Current every day smoker. Years of Use: 30. Packs/Tins Daily: 1. (Last Updated: 10/10/2014 17:59:42 EDT by JARED REDA RN) Alcohol: Alcohol Use History No. (Last Updated: 10/11/2014 11:14:38 EDT by Rima Gotti, DEAN) Substance Abuse: Drug Use Hx: No. (Last Updated: 10/11/2014 11:14:46 EDT by Rima Gotti, RN) Infectious Disease History Has the patient ever been tested for COVID-19? : Yes, Patient stated results Negative Date of COVID-19 test known? : Yes Date of COVID-19 Test : 11/04/2020 EDT Does patient have symptoms of COVID-19? : No COVID19 Screening : No Experiencing Infectious Disease Symptoms : No symptoms Physical contact outside [place] in the last 30 days : No Infectious Disease History : None Tuberculosis Symptoms : None Alisha Munoz Rn - 11/05/2020 10:40 EDT COVID19 PreProcedure Screening Is this an Emergent or Add on Procedure? : No Date PreProcedure COVID-19 test known? : Yes Date of PreProcedure COVID-19 : 11/04/2020 EDT Has patient been isolated since the test : Yes Exposed to COVID19 symptoms since test? : No Alisha Munoz Rn - 11/05/2020 10:40 EDT Anesthesia/Transfusion History Family History of Anesthesia Reaction : No prior transfusion(s) Blood Transfusion Acceptable to Patient : Yes Transfusion History : Prior anesthesia without reaction Family History of Anesthesia Reaction : None Alisha Munoz Rn - 11/05/2020 10:40 EDT Advance Directive Patient has Advance Directive *Q : Yes, Advance Directive not with the patient Advance Directive Type : Living will Copy Advance Directive Verified/on Chart : No Alisha Munoz Rn - 11/05/2020 10:40 EDT Spiritual/Cultural Needs Any Spiritual/Cultural Needs or Requests : Yes Spiritual/Cultural Needs Comment : Surgery 7\30 arrival @ 1000 Spiritual/Cultural Needs Comment : Surgery 7\30 arrival @ 1000 Alisha Munoz Rn - 11/05/2020 10:40 EDT [place] Suicide Severity Rating Scale (C-SSRS) CSSRS Past Month Wish to be : No CSSRS Past Month Suicidal Thoughts : No CSSRS Lifetime Suicide Behavior : No Suicide Severity Rating Score : 0 Suicide Severity Rating : No Additional Care Required at this time Alisha Munoz Rn - 11/05/2020 10:40 EDT Psychosocial History Currently in Unsafe Situation : No Alisha Munoz Rn - 11/05/2020 10:40 EDT Teaching/Learning Assessment Barriers To Learning : None evident Individuals Taught : Patient Readiness to Learn : Cooperative Readiness to Learn : Printed materials Learning Style Preferences Patient : Printed materials, Verbal explanation Learning Style Preferences Family : Printed materials, Verbal explanation Alisha Munoz Rn - 11/05/2020 10:40 EDT Education Topics, Periop Preadmission Perioperative Education Grid Arrival Time/Place : Verbalizes understanding CAUTI : Verbalizes understanding Central Lines : Verbalizes understanding CHG Preoperative Bathing/Cloths : Verbalizes understanding Falls : Verbalizes understanding Incentive Spirometry : Verbalizes understanding Infection Control : Verbalizes understanding IV's : Verbalizes understanding NPO Status/Directions : Verbalizes understanding Pain Management : Verbalizes understanding Postoperative Care Preparations : Verbalizes understanding Preprocedure Preparations : Verbalizes understanding Preprocedure Tests/Labs : Verbalizes understanding Remove Body Piercings : Verbalizes understanding Responsible Adult : Verbalizes understanding SNE's : Verbalizes understanding Take/Hold Medications Pre-Procedure : Verbalizes understanding Other : Verbalizes understanding Alisha Munoz Rn - 11/05/2020 10:40 EDT General Info Preferred Name : Maricel Arrived From : Home Mode of Arrival on Unit : Ambulatory Patient Arrival Date/Time : 03/13/2021 9:55 EST Want Family/Rep/Phys Notified of Admit : No Emergency Contact #1 : Alisha Sorenson Rn - 11/05/2020 10:40 EDT Emergency Contact #1 Alisha Munoz Rn - 11/05/2020 11:34 EDT Emergency Contact #1 Relationship : Son Emergency Contact #2 : . Emergency Contact #2 Phone Number : . Emergency Contact #2 Relationship : . Information Obtained From : Patient Primary Language : Polish Communication Barrier : None Canal Structure Operator Needed : No Alisha Munoz Rn - 11/05/2020 10:40 EDT Reagan Scale Reagan Sensory Perception : No impairment Reagan Moisture : Rarely moist Reagan Activity : Walks frequently Reagan Mobility : No limitation Reagan Nutrition : Excellent Reagan Friction and Shear : No apparent problem Reagan Score : 23 Alisha Munoz Rn - 11/05/2020 10:40 EDT Sleep Apnea Risk Assmt Hx of Obstructive Sleep Apnea Diagnosis : No Snore Loudly : No Tired, Fatigued, or Sleepy During Day : No Observed Stopping Breathing During Sleep : No Have/Are Being Treated for Hypertension : Yes BMI Greater Than 35 kg/m2 : No Age over 50 Years Old : Yes Neck Circumference Greater Than 40 cm : No Gender Male : No STOP-BANG Sleep Apnea Risk Level Score : 2 Alisha Munoz Rn - 11/05/2020 10:40 EDT Pain Scale Intensity : 0 Alisha Munoz Rn - 11/05/2020 10:40 EDT Image 4 - Images currently included in the form version of this document have not been included in the text rendition version of the form. documented in this encounter Plan of Treatment Not on file documented as of this encounter Visit Diagnoses Not on filedocumented in this encounter Care Teams Auto Body Painter Relationship Specialty Start Date End Date Mari Carrero, AUTOMOTIVE GLASS MECHANIC [address] [place] [address] PCP - General Nurse Practitioner 08/10/23 documented as of this encounter
--- OUTSIDE RECORDS SUMMARY | 2024-09-05 14:03 | XMS_ITS | Encounter Summary ---
Author Organization [employer] Address [address] [place] [address] Care Team Providers Care Telephone Sex Worker Name Role Phone Mari Carrero APRN Primary Care Provider Encounter Details Date Type Department Care Team (Late st Contact Info) Description 11/05/2020 Transcribed Document [facility] [address] [place] [address] ProviderRoselyn MD [address] [place] [id number] Social History Tobacco Use Types Packs/Day Years Used Date Smoking Tobacco: Never Assessed Comments Unknown Sex and Gender Information Value Date Recorded Sex Assigned at Not on file Legal Sex Female 6:09 PM CDT Gender Identity Not on file Sexual Orientation Not on file documented as of this encounter Miscellaneous Notes * Cerner Conversion Note - Historical ProviderMD - 11/05/2020 3:09 [place] [address] ANN MARIE BUSH :1955 Visit Time:11/05/2020 What to do next Your Diagnosis Cutaneous abscess of perineum, Cutaneous abscess of perineum Vulvar abscess Instructions From Your Care Team no strenuous activities heart healthy diet No tub soaking. Monitor incision for signs of infection Discharge Activity: Discharge Activity: No strenuous activities Diet: Discharge Diet: Heart healthy diet Follow-Up Appointments Follow Up with DONY CERVANTES When 11/12/2020 01:00 PM EDT Where: [address] [facility] [address] [place] [address]- [facility] (1) Medications What How Much When Instructions Next Dose acetaminophen-hydrocodone ([place]mar 10 mg-325 mg oral tablet) 1 Tablet(s) Oral Every 6 Hours as needed for for pain aspirin (aspirin 81 mg oral delayed release tablet) 1 Tablet(s) Oral Every Day atenolol (atenolol 25 mg oral tablet) 1 Tablet(s) Oral Every Day diazePAM (diazePAM 10 mg oral tablet) 1 Tablet(s) Oral Four Times A Day as needed for Spasms or anxiety fluticasone nasal (fluticasone 50 mcg/ inh nasal spray) 2 [place](s) Nasal Every Day furosemide (furosemide 40 mg oral tablet) 1 Tablet(s) Oral Every Day as needed for weight gain (fluid) levothyroxine (levothyroxine 50 mcg (0.05 mg) oral tablet) 1 Tablet(s) Oral Every Day metFORMIN (metFORMIN 500 mg oral tablet) 1 Tablet(s) Oral At Bedtime metroNIDAZOLE (metroNIDAZOLE 500 mg oral tablet) 1 Tablet(s) Oral Three Times A Day Prescribed but not yet started taking nystatin (nystatin 100,000 units/ mL oral suspension) 5 Milliliter(s) Oral Four Times A Day omeprazole (omeprazole 40 mg oral delayed release capsule) 1 Capsule(s) Oral Two Times A Day potassium chloride (potassium chloride 10 mEq oral tablet, extended release) 1 Tablet(s) Oral Every Day as needed for Other (See Comment) On days furosemide is taken rosuvastatin (Crestor 10 mg oral tablet) 1 Tablet(s) Oral Every Day sertraline (sertraline 100 mg oral tablet) 1 Tablet(s) Oral Two Times A Day tolterodine (tolterodine 2 mg oral tablet) 1 Tablet(s) Oral Two Times A Day traZODone (traZODone 150 mg oral tablet) 1 Tablet(s) Oral Two Times A Day Take your medications faithfully. Do NOT skip medication. Do NOT stop taking medications without the direction of a physician. Carry a list of your medications with you at all times, and take this medication list with you to your first follow up visit. Report any side effects. Avoid herbal remedies unless discussed with your physician. As part of your treatment plan, your physician may have prescribed a limited course of a controlled substance. This medication may be given to help people with moderate or severe pain or for other medical conditions, but there are risks involved with treatment. Common side effects may include nausea, constipation, drowsiness, sweating, itching, dry mouth, and rash. More serious side effects may include cognitive and motor impairment, like problems with thinking, concentrating, alertness, and movement (e.g. slowed reflexes), and driving and operating heavy machinery can be dangerous. It is important for you to talk to your physician if you have these side effects or questions. These controlled substances can produce physical dependence and be habit-forming if taken for an extended period of time, which means that the body has gotten used to them and may experience withdrawal symptoms if they are abruptly stopped. Withdrawal symptoms can include runny nose, sweating, goose bumps, diarrhea, abdominal cramping, rapid heartbeat, difficulty sleeping, and nervousness. Please dispose of unused and medications per pharmacy guidance. Education Materials Incision and Drainage, Care After This sheet [...] these instructions at home: Medicines ??? Take dmse-bpf-siaqrte and prescription medicines only as told by [...] and water are not available, use hand hopper filler. ??? Change your dressing and packing as [...] provider. Document Revised: 01/29/2019 Document Reviewed: 01/29/2019 [employer] Patient Education ?? 2020 [employer] Outpatient Surgery, Adult, Care After These instructions [...] and water are not available, use hand hopper filler. ? Change your dressing as told by [...] or a bad smell. Medicines ??? Take vqry-jat-apxnweo and prescription medicines only as told by [...] provider. Document Revised: 05/29/2018 Document Reviewed: 06/20/2016 [employer] Patient Education ?? 2020 [employer] General Anesthesia, Adult, Care After This sheet [...] activities are safe for you. ??? Take nqev-xmu-hdyiqub and prescription medicines only as told by [...] provider. Document Revised: 03/03/2018 Document Reviewed: 10/14/2017 [employer] Patient Education ?? 2020 [employer]. Emergency Awareness and Preventative Care STROKE is an EMERGENCY Every Minute Counts Act FAST and Check for these signs: FACE Does the face look uneven? ARM Does one arm drift down? SPEECH Does their speech sound strange? TIME Call at any sign of stroke Stroke Risk Factors Atrial Fibrillation (irregular heartbeat) Diabetes Family history of stroke Heart Disease Heavy alcohol use High Blood Pressure High Cholesterol Physical inactivity and obesity Smoking Cigarette Smoking The facts are clear, cigarette smoking will shorten your life. Smoking can cause many illnesses along the way. As a healthcare provider, we recommend that you stop smoking. Assistance with quitting is available by contacting 5-084-WSQP-NOW. This is a free resource providing counseling, support, and referral. Or you may contact your personal physician. National Suicide Prevention Lifeline: The National Suicide Prevention Lifeline is a national network of local crisis centers that provides free and confidential emotional support to people in suicidal crisis or emotional distress 24 hours a day, 7 days a week. Don't Wait! Stop a Heart Attack Before it Starts What is a heart attack? A heart attack is damage or to a part of the heart from severely decreased or lack of blood flow to the heart. Over time, arteries can become narrow from the buildup of fat and cholesterol, which is called plaque. The plaque can rupture causing a blood clot to form. When the blood clot forms, the artery can become severely narrowed or completely blocked, causing a heart attack. Heart attack is the leading cause of in the [place]. 85% of muscle damage occurs within the first 2 hours. Delay in the recognition of heart attack symptoms increases the chances of . Know the early symptoms of a heart attack: Nausea Feeling of fullness in chest Jaw Pain Pain that travels down one or both arms Fatigue/being tired Anxiety Back Pain Chest pressure, squeezing, or discomfort Shortness of breath Sweating, or a cold sweat Feeling of impending doom There are unusual signs of a heart attack, too! Women, the elderly, and diabetics may present with atypical symptoms: Fainting/dizziness Weakness Confusion Risk Factors for a Heart Attack Some heart disease risk factors, such as age and family history, cannot be changed. Others, like smoking and lack of exercise, can be changed. Smoking High Cholesterol High Blood Pressure Family History Obesity Age Gender (Males are at higher risk) Lack of Exercise Diabetes Diet Stress Excessive Alcohol Intake If you or someone you know is experiencing the signs and symptoms of a heart attack, DON???T DELAY. Call immediately and seek help. If someone collapses, perform CPR! Do not attempt to drive if you are having symptoms of heart attack. Hands-Only CPR Why Hands-Only CPR? Hands-Only CPR has been shown to be as effective as conventional CPR for cardiac arrests that occur outside of a hospital. Survival depends on immediately receiving CPR from someone nearby. How do you perform Hands-Only CPR? There are two easy steps: Call if you see a teen or adult collapse Push hard and fast in the center of the chest at a beat of 100 beats per minute. Save a life! 4 WAYS TO GET AHEAD OF SEPSIS SEPSIS is a MEDICAL EMERGENCY. Time matters! Infections put you and your family at risk for a life-threatening condition called sepsis. Sepsis is the body's extreme response to an infection. It is life-threatening, and without timely treatment, sepsis can rapidly lead to tissue damage, organ failure, and . Sepsis happens when an infection you already have-in your skin, lungs, urinary tract or somewhere else-triggers a chain reaction throughout your body. 1 PREVENT INFECTIONS Take good care of chronic conditions. Talk to your doctor about getting the recommended vaccines. 2 PRACTICE GOOD HYGIENE Wash your hands frequently. Keep cuts or open sores clean and covered until they are healed. 3 KNOW THE SYMPTOMS Confusion or disorientation Shortness of breath High heart rate Fever, shivering, or feeling very cold Extreme pain or discomfort Clammy or sweaty skin 4 ACT FAST Get medical care IMMEDIATELY if you suspect sepsis or if you have an infection that is not getting better or is getting worse. To learn more about sepsis and how to prevent infections, visit www.cdc.gov/sepsis. Test Results Laboratory or Other Results This Visit (last charted value for your 11/05/2020 visit) Hematology 11/05/2020 10:49 AM WBC: 7.2 K/uL -- Normal range between ( 3.9 and 10.0 ) RBC: 4.60 Million/uL -- Normal range between ( 3.93 and 5.22 ) Hct: 39.0 % -- Normal range between ( 34.1 and 44.9 ) Hgb: 12.2 Gram/dL -- Normal range between ( 11.2 and 15.7 ) Platelet Count: 210 K/uL -- Normal range between ( 163 and 369 ) MCH: 26.5 pg -- Normal range between ( 25.6 and 32.2 ) MCHC: 31.3 Gram/dL -- Normal range between ( 32.3 and 36.5 ) MCV: 84.8 fL -- Normal range between ( 79.0 and 94.8 ) Slide Review: No Eos %: 0.4 % -- Normal range between ( 1.0 and 7.0 ) [place] #: 0.23 K/uL -- Normal range between ( 0.24 and 0.82 ) Eos #: 0.03 K/uL -- Normal range between ( 0.04 and 0.54 ) [place] %: 3.2 % -- Normal range between ( 4.7 and 12.5 ) Baso %: 0.4 % -- Normal range between ( 0.0 and 1.0 ) Baso #: 0.03 K/uL -- Normal range between ( 0.01 and 0.08 ) RDW: 16.0 % -- Normal range between ( 11.6 and 14.4 ) Neut %: 66.4 % -- Normal range between ( 34.0 and 71.0 ) Neut #: 4.81 K/uL -- Normal range between ( 1.56 and 6.13 ) Lymph %: 29.3 % -- Normal range between ( 19.3 and 53.0 ) Lymph #: 2.12 K/uL -- Normal range between ( 1.18 and 3.74 ) MPV: 9.5 fL -- Normal range between ( 9.4 and 12.4 ) IG#: 0 x10(3)/uL IG%: 0 % -- Normal range between ( 0 and 1 ) Microbiology 11/03/2020 3:20 PM SARS-CoV-2 (COVID19 PCR): Negative General Chemistry 11/05/2020 10:49 AM Creatinine Level: 0.75 mg/dL -- Normal range between ( 0.55 and 1.02 ) Sodium Level: 139 mmol/L -- Normal range between ( 136 and 146 ) Potassium Level: 4.1 mmol/L -- Normal range between ( 3.5 and 5.1 ) Chloride Level: 107 mmol/L -- Normal range between ( 102 and 112 ) Carbon Dioxide Level: 30 mmol/L -- Normal range between ( 21 and 32 ) Anion Gap: 6 -- Normal range between ( 9 and 20 ) Bilirubin Total: 0.3 mg/dL -- Normal range between ( 0.2 and 1.3 ) A/G Ratio: 0.7 -- Normal range between ( 1.1 and 2.5 ) ALT: 10 Units/Liter -- Normal range between ( 12 and 78 ) AST: 8 Units/Liter -- Normal range between ( 5 and 37 ) Globulin: 4.2 Gram/dL -- Normal range between ( 1.5 and 4.5 ) Alk Phos: 110 Units/Liter -- Normal range between ( 27 and 136 ) Bun/Creatinine: 10.7 -- Normal range between ( 8.0 and 20.0 ) Calcium Level: 8.8 mg/dL -- Normal range between ( 8.5 and 10.1 ) eGFR : >60 mL/min/1.73m2 eGFR NonAfrican: >60 mL/min/1.73m2 Glucose Level: 120 mg/dL -- Normal range between ( 74 and 106 ) Blood Urea Nitrogen: 8 mg/dL -- Normal range between ( 7 and 22 ) Protein Total: 7.0 Gram/dL -- Normal range between ( 6.4 and 8.2 ) Albumin Level: 2.8 Gram/dL -- Normal range between ( 3.4 and 5.0 ) 11/05/2020 10:32 AM Glucose POC2: 124 mg/dL -- Normal range between ( 70 and 110 ) Diagnostic Radiology 11/05/2020 11:12 AM CR Chest 2 Vws: CR Chest 2 Vws Patient Name:ANN MARIE BUSH I have received this information and was given the opportunity to ask questions. Patient/Accounting Advisory Services Manager Name: Patient/Accounting Advisory Services Manager Signature: Relationship to Patient: Clinician/Hospital Accounting Advisory Services Manager Signature: Date: Electronically signed by [facility], [facility] Conversion Traffic Technician Karen at 06/27/2022 8:39 PM CDT documented in this encounter Plan of Treatment Not on file documented as of this encounter Visit Diagnoses Not on filedocumented in this encounter Care Teams Telephone Sex Worker Relationship Specialty Start Date End Date Mari Carrero DEMO EVENT SPECIALIST [address] [place] [address] PCP - General Nurse Practitioner 08/10/23 documented as of this encounter
== END 2024-09-04 23:59 | disposition home or self-care (01) ==
LOC: LAB.DROPOF 09-05 14:00
PROVIDERS: PCP Nurse Practitioner Family; Visit Provider Nurse Practitioner Family
DX: N39.0 Urinary tract infection, site not specified (principal)
CPT/HCPCS: 87086; 87088; 87186

== ENCOUNTER 2024-09-17 14:14 | Outpatient (CLI) | payer MEDICARE, SELFPAY ==
--- OUTSIDE RECORDS SUMMARY | 2024-09-17 13:55 | XMS_ITS | Continuity of Care Document ---
Author Organization [facility]. If a dditional information is needed, contact Health Information Management at [phone] Address [address] [place] [address] Phone Care Team Providers Care Undergraduate Internship Name Role Phone Unavailable Unavailable Unavailable Unavailable [...] Reaction:Rash-Unknown surgical steel(Allergy) Onset: 16-Jul-2022 Reaction:Rash-Unknown Medications traZODone hydrochloride;300 MG ORAL At Bedtime Start:16-Jul-2022 Comments:300 mg PO BEDTIME Flonase_FLON16SP6-AOM;1 SPRA Y Intranasal Daily Start:16-Jul-2022 Comments:1 spray INTRANASAL DAILY atenolol 25 MG Oral Tablet;2 5 MG ORAL Daily Start:16-Jul-2022 Comments:25 mg PO DAILY Glucophage_GLUC500T23-AOM;50 0 MG ORAL At Bedtime Start:16-Jul-2022 Comments:500 mg PO BEDTIME Valium;10 MG ORAL Three Time s a Day Start:16-Jul-2022 Comments:10 mg PO TID As Needed for Anxiety levothyroxine sodium 0.05 MG Oral Tablet [Synthroid];50 MCG ORAL Daily Start:16-Jul-2022 Comments:50 mcg PO DAILY polyethylene glycol 3350 17 gram/dose oral powder;17 G ORAL Daily Start:16-Jul-2022 Comments:17 g PO DAILY furosemide 40 MG Oral Tablet ;60 MG ORAL QAM Start:16-Jul-2022 Comments:60 mg PO QAM rosuvastatin 20 mg tablet;20 MG ORAL At Bedtime Start:16-Jul-2022 Comments:20 mg PO BEDTIME omeprazole 40 MG Delayed Rel ease Oral Capsule;40 MG ORAL Two Times a Day Start:16-Jul-2022 Comments:40 mg PO BID Decara;1250 MCG ORAL Weekly Start:16-Jul-2022 Comments:1250 mcg PO WEEKLY sertraline 50 MG Oral Tablet ;50 MG ORAL Daily Start:16-Jul-2022 Comments:50 mg PO DAILY
--- OUTSIDE RECORDS SUMMARY | 2024-09-18 10:07 | XMS_ITS | Encounter Summary ---
Author Organization [employer] ([place], [place], [place], [place]) Address [address] [place] [address] Care Team Providers Care Polisher Balance Screwhead Name Role Phone Mari Carrero APRN Primary Care Provider Encounter Details Date Type Department Care Team (Late st Contact Info) Description 11/05/2020 Transcribed Document [facility] [place] Family [place] [address] ProviderRoselyn MD [address] [place] [address] Social History Tobacco Use Types Packs/Day [...] DOMINGUEZ /Sex: 1955 Female Med Rec #: [id number] Physician: DONY CERVANTES MD-OBG Financial #: [id number] Pt. Type: O Room/Bed: [facility] Admit/Disch: 11/05/20 09:46:00 - Institution: [facility] [place] PreOp Case Times Entry 1 In Preop 11/05/20 09:55:00 Ready for Holding n/a Room Patient Ready for 11/05/20 10:30:00 Surgery Patient Out of Preop 11/05/20 12:20:00 Patient Out of n/a Holding Room Last Modified By: Katelyn Ga RN 11/05/20 17:26:05 [facility] PreOp Case Times Audit 11/05/20 17:26:05 Dairy Nutrition Consultant: SULMA Modifier: [id number] <+> 1 Patient Out of Preop Finalized By: Katelyn Ga, RN Document Signatures Signed By: Katelyn Ga RN 11/05/20 17:26 documented in this encounter Plan of Treatment Not on file documented as of this encounter Visit Diagnoses Not on filedocumented in this encounter Care Teams Polisher Balance Screwhead Relationship Specialty Start Date End Date Mari Carrero, DYNAMOMETER TESTER [address] [id number] PCP - General Nurse Practitioner 08/10/23 documented as of this encounter
--- OUTSIDE RECORDS SUMMARY | 2024-09-18 10:07 | XMS_ITS | Encounter Summary ---
Author Organization Healthcare Address [address] [place] [address] Care Team Providers Care Service Correspondent Name Role Phone Reynold Khan MD Primary Care Provider [phone] Encounter Details Date Type Department Care Team (Late st Contact Info) Description 07/19/2022 Lab Requisition [facility] [address] [place] [address] Maxwell Neal MD [address] [place] [address] Encounter for general adult medical [...] Attempt) 1 07/19/2022 2:00 PM EDT Maliha Bodn RN * Actual/Potential Lethality (Initial/First Attempt) Question Answer Date of Assessment Author Initial/First Attempt Date 17150 07/19/2022 2:0 0 PM EDT Maliha Bond [...] GENERAL ORDERABLES Final Result Performing Organization Address City/State/[facility] Co de Phone Number [facility] [address] [place] [address] documented in this encounter Visit Diagnoses Diagnosis Encounter for general adult medical examination without abnormal findings documented in this encounter Care Teams Service Correspondent Relationship Specialty Start Date End Date Reynold Khan MD [address] [place] [address] PCP - General 07/25/20 documented as of this encounter
--- OUTSIDE RECORDS SUMMARY | 2024-09-18 10:07 | XMS_ITS | Clinical Summary ---
Author Organization [employer] ([place], [place], [place], [place]) Address [address] [place] [address] Care Team Providers Care Driver'S Education Instructor Name Role Phone Mari Carrero SHOE STAINER Primary Care Provider Allergies Active Allergy Reactions [...] mg total) by mouth once a week. 06/13/2023 Active atenoloL (TENORMIN) 25 MG tablet Take 1 tablet (25 mg total) by mouth daily. 05/17/2023 Active cetirizine (ZyrTEC) 10 MG tablet Take 1 tablet (10 mg total) by mouth daily. 04/14/2023 Active fluticasone propionate (FLONASE) 50 mcg/actuation nasal spray 1 spray daily. 04/14/2023 Active levothyroxine (SYNTHROID, LEVOTHROID) 50 MCG tablet Take 1 tablet (50 mcg total) by mouth daily. 06/13/2023 Active metFORMIN (GLUCOPHAGE) 850 MG tablet Take 1 tablet (850 mg total) by mouth nightly. 06/13/2023 Active omeprazole (PriLOSEC) 40 MG capsule Take 1 capsule (40 mg total) by mouth 2 (two) times daily. 06/13/2023 Active oxybutynin (DITROPAN-XL) 10 MG 24 hr tablet Take 1 tablet (10 mg total) by mouth daily. 06/13/2023 Active polyethylene glycol (GLYCOLAX) 17 gram/dose powder Take by mouth daily. 04/20/2023 Active potassium chloride (MICRO-K) 10 mEq CR capsule Take 1 capsule (10 mEq total) by mouth 2 (two) times daily. 06/13/2023 Active rosuvastatin (CRESTOR) 20 MG tablet Take 1 tablet (20 mg total) by mouth nightly. 05/17/2023 Active sertraline (ZOLOFT) 100 MG tablet Take 1 tablet (100 mg total) by mouth daily. 06/13/2023 Active traZODone (DESYREL) 100 MG tablet Take 1 tablet (100 mg total) by mouth nightly. 06/13/2023 Active metoclopramide (REGLAN) 5 MG tablet Take 1 tablet (5 mg total) by mouth. Active albuterol HFA (VENTOLIN HFA) 90 mcg/actuation inhaler 2 puffs. 2023 Active Symbicort 80-4.5 mcg/actuation inhaler 2 puffs. 2023 Active busPIRone (BUSPAR) 5 MG tablet Take 1 tablet (5 mg total) by mouth 2 (two) times daily. 07/15/2023 Active cyclobenzaprine (FLEXERIL) 10 MG tablet Take 1 tablet (10 mg total) by mouth every night as needed. 07/27/2023 Active Active Problems Problem Noted Date Diagnosed Date [...] 09/09/2023 Cavitary lesion of lung 09/09/2023 09/09/19 Community acquired pneumonia 09/09/2023 Lung nodule 09/09/2023 [...] Due Influenza High Dose Preservative Free IM (BYR624 ) 03/31/2020 Influenza Quad-qiv Non Pf 01/23/2018 [...] drink = 0.6 oz pur e alcohol) Food Insecurity Answer Date Recorded Food run [...] Date Silviano rded Speak language other than Kuwaiti at home Not on file 05/25/2023 Want help with school or training Not on file 05/25/2023 Substance Use Answer Date Recorded Used [...] and Screening (12+) 08/09/2024 08/10/2023 Influenza Vaccine (#1) 2024 , 03/31/2020, 01/23/2018, Additional history exists Pneumococcal 50+ years (3 of 3 - PCV20 or PCV21) 03/31/2025 03/31/2020, 03/19/2010 Colonoscopy 08/09/2028 08/10/2023 Colorectal Cancer Screening 08/09/2028 Insurance [facility] MEDICARE ADVANTAGE Care Teams Driver'S Education Instructor Relationship Specialty Start Date End Date Mari Carrero, SHOE STAINER [address] [place] [address] PCP - General Nurse Practitioner 08/10/23
--- OUTSIDE RECORDS SUMMARY | 2024-09-18 10:07 | XMS_ITS | Referral Summary ---
Author Organization [employer] ([place], [place], [place], [place]) Address [address] [place] [address] Care Team Providers Care Youth Counselor Name Role Phone Mari Carrero BIOLOGICAL INSPECTOR Primary Care Provider Allergies Active Allergy Reactions [...] Due Influenza High Dose Preservative Free IM (LSG806 ) 03/31/2020 Influenza Quad-qiv Non Pf 01/23/2018 [...] Date Silviano rded Speak language other than Hong Konger at home Not on file 05/25/2023 Want [...] Plan of Treatment Not on file Insurance [facility] MEDICARE ADVANTAGE Care Teams Youth Counselor Relationship Specialty Start Date End Date Mari Carrero, BIOLOGICAL INSPECTOR [address] [place] [address] PCP - General Nurse Practitioner 08/10/23
--- OUTSIDE RECORDS SUMMARY | 2024-09-18 10:07 | XMS_ITS | Encounter Summary ---
Author Organization [employer] ([place], [place], [place], [place]) Address [address] [place] [address] Care Team Providers Care General Farm Hand Name Role Phone Mari Carrero APRN Primary Care Provider Encounter Details Date Type Department Care Team (Late st Contact Info) Description 11/05/2020 Transcribed Document [facility] [place] Family Medicine [facility] [place] [address] ProviderRoselyn MD [address] [place] [address] Social History Tobacco Use Types Packs/Day Years Used Date Smoking Tobacco: Never Assessed Comments Unknown Sex and Gender Information Value Date Recorded Sex Assigned at Not on file Legal Sex Female 6:09 PM CDT Gender Identity Not on file Sexual Orientation Not on file documented as of this encounter Miscellaneous Notes * Cerner Conversion Note - Roselyn Bocanegra MD - 11/05/2020 12:49 PM CDT [facility] OR IntraOp Summary Primary Physician: DONY CERVANTES MD-OBG Finalized Date/Time: 11/05/20 13:56:06 Pt. Name: ANN MARIE DOMINGUEZ /Sex: 1955 Female Med Rec #: [id number] Physician: DONY CERVANTES MD-OBG Financial #: [id number] Pt. Type: O Room/Bed: [facility] Admit/Disch: 11/05/20 09:46:00 - Institution: [facility] [place] IntraOp Case Attendance Entry 1 Entry 2 Entry 3 Case Attendee DONY CERVANTES MD-OBG ANNI GOODRICH APRN, Brock, Deanna MOLDER SWEEP-ANS Role Performed Surgeon/Proceduralist, MOLDER SWEEP/Nurse Lithograph Press Operator Scrub, First First Time In 11/05/20 12:28:00 [...] Christianson RN-PATIENT CARE BEDSIDE NON-EXEMPT Role Performed Reconcilement Clerk, First Time In 11/05/20 12:28:00 Time Out 11/05/20 13:56:00 Procedure Mass Excision Genitalia Other Attendee Superficial Wound Closed By: Last Modified By: Brittani Christianson RN-PATIENT CARE BEDSIDE NON-EXEMPT 11/05/20 13:56:02 [facility] IntraOp Case Attendance Audit 11/05/20 13:56:02 Looping Machine Operator: [id number] Modifier: [id number] <+> Time Out 1 <*> Procedure Mass Excision Genitalia 2 <+> Time Out 2 <*> Procedure Mass Excision Genitalia 3 <+> Time Out 3 <*> Procedure Mass Excision Genitalia 4 <+> Time Out 4 <*> Procedure Mass Excision Genitalia 11/05/20 13:10:37 Looping Machine Operator: [id number] Modifier: [id number] <+> Time In 1 <*> Procedure Mass Excision Genitalia 2 <+> Time In 2 <*> Procedure Mass Excision Genitalia 3 <+> Time In 3 <*> Procedure Mass Excision Genitalia 4 <+> Time In 4 <*> Procedure Mass Excision Genitalia 11/05/20 12:53:31 Looping Machine Operator: [id number] Modifier: [id number] <+> 2 Case Attendee <+> 2 Role [...] [facility] IntraOp Case Times Audit 11/05/20 13:55:49 Looping Machine Operator: [id number] Modifier: [id number] <+> 1 Out Room Time <+> 1 [...] Patient Transport ANNI GOODRICH APRN, Accompanied by MOLDER SWEEP-ANS, Brittani Christianson RN-PATIENT CARE BEDSIDE NON-EXEMPT Last Modified By: Brittani Christianson RN-PATIENT CARE BEDSIDE NON-EXEMPT 11/05/20 13:04:23 [facility] IntraOp Drains and Tubes Entry 1 Device Type Disputanta Size 1/4 Drain/Tube Activity Inserted Method of [...] NON-EXEMPT 11/05/20 13:06:09 [facility] IntraOp General Case Tack Picker 1 Case Information OR OR 04 [facility] [...] 0.5% w/ epinephrine 1:200,000 30ml vial - [id number] Route of TO FIELD Administration Dose Dose [...] Intra Op Sign Out Audit 11/05/20 13:55:56 Looping Machine Operator: [id number] Modifier: [id number] <+> 1 RN Sign Out Signature Date/Time [...] [facility] IntraOp Surgical Procedures Audit 11/05/20 13:56:01 Looping Machine Operator: [id number] Modifier: [id number] <+> 1 Stop 11/05/20 13:09:58 Looping Machine Operator: [id number] Modifier: [id number] <+> 1 Start [facility] IntraOp Temp Regulation Devices Entry 1 Temp Regulation Temperature Forced Air Warming Regulation Device device Temperature Upper body Regulation Site Temperature Device HIGH Setting Temperature ANNI GOODRICH APRN, Regulation Device MOLDER SWEEP-ANS Applied by Last Modified By: Brittani Christianson [...] NON-EXEMPT 11/05/20 13:56 Electronically signed by [facility] Conversion Technical Specialist Cytology Cerner at 06/27/2022 8:33 PM CDT documented in this encounter Plan of Treatment Not on file documented as of this encounter Visit Diagnoses Not on filedocumented in this encounter Care Teams General Farm Hand Relationship Specialty Start Date End Date Mari Carrero, HEAD OF SALES AND MARKETING [address] [place] [address] PCP - General Nurse Practitioner 08/10/23 documented as of this encounter
--- OUTSIDE RECORDS SUMMARY | 2024-09-18 10:07 | XMS_ITS | Encounter Summary ---
Author Organization [employer] ([place], [place], [place], [place]) Address [address] [place] [address] Care Team Providers Care Fabric Stretcher Name Role Phone Mari Carrero APRN Primary Care Provider Encounter Details Date Type Department Care Team (Late st Contact Info) Description 11/04/2020 Transcribed Document [facility] [place] [address] [place] [address] ProviderRoselyn MD [address] [place] [id number] Social History Tobacco Use Types Packs/Day Years [...] to me by Dr. Main Paez in [place], [place], with a problem of an inflammatory [...] SOCIAL HISTORY: The patient is a one pesq-dqw-wep cigarette smoker. PHYSICAL EXAMINATION: GENERAL: Shows a [...] extension. ASSESSMENT: As above. PLAN: As above. /[id number] MD ANG Del AngelB/PER / LSBianca / MODL Electronically signed by [facility] Conversion Real Estate Asset Manager Cerner at 06/27/2022 8:21 PM CDT documented in this encounter Plan of Treatment Not on file documented as of this encounter Visit Diagnoses Not on filedocumented in this encounter Care Teams Fabric Stretcher Relationship Specialty Start Date End Date Mari Carrero, RN AMBULATORY [address] [address] PCP - General Nurse Practitioner 08/10/23 documented as of this encounter
--- OUTSIDE RECORDS SUMMARY | 2024-09-18 10:07 | XMS_ITS | Encounter Summary ---
Author Organization [employer] ([place], [place], [place], [place]) Address [address] [place] [address] Care Team Providers Care Weigher And Crusher Name Role Phone Mari Carrero APRN Primary Care Provider Encounter Details Date Type Department Care Team (Late st Contact Info) Description 11/05/2020 Transcribed Document [facility] [place] Family [place] [address] ProviderRoselyn MD [address] [place] [address] Social History Tobacco Use Types Packs/Day Years Used Date Smoking Tobacco: Never Assessed Comments Unknown Sex and Gender Information Value Date Recorded Sex Assigned at Not on file Legal Sex Female 6:09 PM CDT Gender Identity Not on file Sexual Orientation Not on file documented as of this encounter Miscellaneous Notes * Cerner Conversion Note - Roselyn ProviderMD - 11/05/2020 10:40 AM CDT PAT Adult Entered On: 11/05/2020 10:45 EDT Performed On: 11/05/2020 10:40 EDT by Alisha Munoz, Rn Vital Measurements Temperature Source : Temporal [...] : 0-10 Scale Pain Radiation : No Short, Alisha D, Rn - 11/05/2020 10:40 EDT Height and Weight, Clinical Dosing Height Source : Stated Height Entry Format : [place] Height, Feet : 5 ft(Converted to: 152 cm, 60 Inch) Height, Inches : 2 Inch(Converted to: 0 ft 2 Inch, 5.08 cm) Clinical Height : 157.48 cm Weight Source : Standing scale Weight Entry Format : [place] Clinical Dosing Weight : 85.91 kg Weight, Pounds : 189 lb Body Surface Area (BSA) : 1.87 m2 Body Mass Index : 34.6 kg/m2 (HI) [place] Body Weight : 50 kg Alisha Munoz [...] (Last Updated: 10/10/2014 17:59:42 EDT by JARED READ RN) Alcohol: Alcohol Use History No. (Last Updated: 10/11/2014 11:14:38 EDT by Rima Gotti, DEAN) Substance Abuse: Drug Use Hx: No. (Last Updated: 10/11/2014 11:14:46 EDT by Rima Gotti RN) Infectious Disease History Has the patient [...] to COVID19 symptoms since test? : No Ailsha Munoz Rn - 11/05/2020 10:40 EDT Anesthesia/Transfusion [...] will Copy Advance Directive Verified/on Chart : Alisha Lockhart Rn - 11/05/2020 10:40 EDT Spiritual/Cultural Needs Any Spiritual/Cultural Needs or Requests : Yes Spiritual/Cultural Needs Comment : Surgery 7\30 arrival @ 1000 Spiritual/Cultural Needs Comment : Surgery 7\30 arrival @ 1000 Alisha Munoz Rn - 11/05/2020 10:40 EDT [place] Suicide Severity Rating Scale (C-SSRS) CSSRS Past [...] Obtained From : Patient Primary Language : [place] Communication Barrier : None Wood Pile Driver Operator Needed : No Alisha Munoz Rn [...] on filedocumented in this encounter Care Teams Weigher And Crusher Relationship Specialty Start Date End Date Mari Carrero, MARTIR [address] [place] [address] PCP - General Nurse Practitioner 08/10/23 documented as of this encounter
--- OUTSIDE RECORDS SUMMARY | 2024-09-18 10:07 | XMS_ITS | Encounter Summary ---
Author Organization [employer] ([place], [place], [place], [place]) Address [address] [place] [address] Care Team Providers Care Tool Shaper Set Up Operator Name Role Phone Mari Carrero APRN Primary Care Provider Encounter Details Date Type Department Care Team (Late st Contact Info) Description 11/05/2020 Transcribed Document [facility] [place] Family Medicine [address] [place] [address] ProviderRoselyn MD [address] [place] [phone] Social History Tobacco Use Types Packs/Day Years [...] was drained by Dr. Main Paez in [facility], was purulent, but it has [...] the top part, but we put a Henefer drain in for drainage and sutured it to the skin with 2-0 Vicryl and closed the skin with louie. The patient was taken to postop recovery room in satisfactory condition and she was given and clindamycin as preop clinical antibiotics. ESTIMATED BLOOD LOSS: Approximately 15 to 20 mL. /[id number] Zane Redman MD LSB/AQ / LSB / MODL /[id number] documented in this encounter Plan of Treatment Not on file documented as of this encounter Visit Diagnoses Not on filedocumented in this encounter Care Teams Tool Shaper Set Up Operator Relationship Specialty Start Date End Date Mari Carrero APRN [address] [address] PCP - General Nurse Practitioner 08/10/23 documented as of this encounter
--- OUTSIDE RECORDS SUMMARY | 2024-09-18 10:07 | XMS_ITS | Encounter Summary ---
Author Organization [employer] ([place], [place], [place], [place]) Address [address] [place] [address] Care Team Providers Care Equipment Operation Instructor Name Role Phone Mari Carrero APRN Primary Care Provider [phone] Encounter Details Date Type Department Care Team (Late st Contact Info) Description 11/05/2020 Transcribed Document [facility] [place] Family Medicine [facility] [place] [address] ProviderRoselyn MD [address] [place] [address] Social History Tobacco Use Types Packs/Day [...] Date/Time: 11/05/20 16:02:04 Pt. Name: ANN MARIE BUSH /Sex: 1955 Female Med Rec #: [id number] Physician: DONY CERVANTES MD-OBG Financial #: [id number] Pt. Type: O Room/Bed: [facility] Admit/Disch: 11/05/20 09:46:00 - Institution: [facility] PostOp Case Times Entry 1 In PACU II 11/05/20 15:00:00 Ready for PACU II 11/05/20 15:30:00 Discharge Discharge from PACU 11/05/20 15:45:00 II Last Modified By: KATHLEEN BRAMBILA, RN 11/05/20 16:01:57 [facility] OR PostOp Case Times Audit 11/05/20 16:01:57 Weight Inspector: [email or web address] Modifier: [email or web address] <+> 1 Discharge from PACU II 11/05/20 15:47:34 Weight Inspector: [email or web address] Modifier: [email or web address] <+> 1 Ready for PACU II Discharge Finalized By: KATHLEEN BRAMBILA, RN Document Signatures Signed By: KATHLEEN BRAMBILA RN 11/05/20 16:02 documented in this encounter Plan of Treatment Not on file documented as of this encounter Visit Diagnoses Not on filedocumented in this encounter Care Teams Equipment Operation Instructor Relationship Specialty Start Date End Date Mari Carrero, GRINDER SET UP OPERATOR UNIVERSAL [address] [address] PCP - General Nurse Practitioner 08/10/23 documented as of this encounter
--- OUTSIDE RECORDS SUMMARY | 2024-09-18 10:07 | XMS_ITS | Encounter Summary ---
Author Organization [employer] ([place], [place], [place], [place]) Address [address] [place] [address] Care Team Providers Care Tape Making Machine Operator Name Role Phone Mari Carrero APRN Primary Care Provider [phone] Encounter Details Date Type Department Care Team (Late st Contact Info) Description 11/05/2020 Transcribed Document [facility] [place] Family Medicine [facility] [place] [address] ProviderRoselyn MD [address] [place] [address] Social History Tobacco Use Types Packs/Day [...] these instructions at home: Medicines ??? Take yfhv-vkg-bhqahky and prescription medicines only as told by [...] and water are not available, use hand refrigerating engineer head. ??? Change your dressing and packing as [...] provider. Document Revised: 01/29/2019 Document Reviewed: 01/29/2019 [employer] Patient Education ? 2020 [employer] Pharmacology General Anesthesia, Adult, Care After This [...] activities are safe for you. ??? Take gvxy-qva-cvgeeci and prescription medicines only as told by [...] provider. Document Revised: 03/03/2018 Document Reviewed: 10/14/2017 [employer] Patient Education ? 2020 [employer] Procedures Outpatient Surgery, Adult, Care After [...] and water are not available, use hand refrigerating engineer head. ? Change your dressing as told by [...] or a bad smell. Medicines ??? Take wyni-eya-trnbsld and prescription medicines only as told by [...] provider. Document Revised: 05/29/2018 Document Reviewed: 06/20/2016 [employer] Patient Education ? 2020 [employer] Electronically signed by Yahir Schultz Conversion Mortgage Processing Clerk Matthewner at 06/27/2022 8:30 PM CDT documented in this encounter Plan of Treatment Not on file documented as of this encounter Visit Diagnoses Not on filedocumented in this encounter Care Teams Tape Making Machine Operator Relationship Specialty Start Date End Date Mari Carrero APRN [address] [address] PCP - General Nurse Practitioner 08/10/23 documented as of this encounter
--- OUTSIDE RECORDS SUMMARY | 2024-09-18 10:07 | XMS_ITS | Clinical Summary ---
Author Organization [facility] Address [address] [place] [address] Care Team Providers Care Molder Floor Name Role Phone Reynold Khan MD Primary Care Provider [phone] Allergies Active Allergy Reactions Criticality Noted Date [...] day. Active cholecalciferol (Vitamin D3) 1.25 MG (62649 UT) tablet Take 50,000 Units by mouth [...] No Healthcare Surrogate: Healthcare POA Care Teams Molder Floor Relationship Specialty Start Date End Date Reynold Khan MD [address] [place] [address] PCP - General 07/25/20
--- OUTSIDE RECORDS SUMMARY | 2024-09-18 10:07 | XMS_ITS | Encounter Summary ---
Author Organization [employer] ([place], [place], [place], [place]) Address [address] [place] [address] Care Team Providers Care Fish Skinning Machine Feeder Name Role Phone Mari Carrero APRN Primary Care Provider Encounter Details Date Type Department Care Team (Late st Contact Info) Description 11/05/2020 Transcribed Document [facility] [address] ProviderRoselyn MD [address] [place] [address] Social History Tobacco Use Types Packs/Day [...] 11/05/2020 12:49 PM CDT [facility] Main OR PACU Summary Primary Physician: DONY CERVANTES MD-OBG Finalized Date/Time: 11/05/20 15:08:22 Pt. Name: ANN MARIE BUSHE /Sex: 1955 Female Med Rec #: [id number] Physician: DONY CERVANTES MD-OBG Financial #: [id number] Pt. Type: O Room/Bed: [facility] Admit/Disch: 11/05/20 09:46:00 - Institution: [facility] Main OR PACU Case Times Entry 1 In PACU I 11/05/20 13:56:00 Ready for PACU 11/05/20 14:55:00 Discharge Discharge from PACU 11/05/20 14:55:00 I Last Modified By: BLANCA KEYS RN 11/05/20 15:08:20 Finalized By: BLANCA KEYS RN Document Signatures Signed By: BLANCA KEYS RN 11/05/20 15:08 documented in this encounter Plan of Treatment Not on file documented as of this encounter Visit Diagnoses Not on filedocumented in this encounter Care Teams Fish Skinning Machine Feeder Relationship Specialty Start Date End Date Mari Carrero, TURNING SANDER TENDER [address] [place] [address] PCP - General Nurse Practitioner 08/10/23 documented as of this encounter
--- OUTSIDE RECORDS SUMMARY | 2024-09-18 10:07 | XMS_ITS | Encounter Summary ---
Author Organization [employer] ([place], [place], [place], [place]) Address [address] [place] [address] Care Team Providers Care Reprographics Associate Name Role Phone Mari Carrero APRN Primary Care Provider Encounter Details Date Type Department Care Team (Late st Contact Info) Description 11/05/2020 Transcribed Document [facility] [place] [facility] [place] [address] ProviderRoselyn MD [address] [place] [address] Social History Tobacco Use Types Packs/Day Years Used Date Smoking Tobacco: Never Assessed Comments Unknown Sex and Gender Information Value Date Recorded Sex Assigned at Not on file Legal Sex Female 6:09 PM CDT Gender Identity Not on file Sexual Orientation Not on file documented as of this encounter Miscellaneous Notes * Cerner Conversion Note - Roselyn ProviderMD - 11/05/2020 3:09 PM CDT [address] [address] ANN MARIE BUSH :1955 Visit Time:11/05/2020 What [...] When 11/12/2020 01:00 PM EDT Where: [address] [place] [address]- [facility] (1) Medications What How Much When Instructions Next Dose acetaminophen-hydrocodone ([place] 10 mg-325 mg oral tablet) 1 Tablet(s) [...] (fluticasone 50 mcg/ inh nasal spray) 2 [place](s) Nasal Every Day furosemide (furosemide 40 mg [...] these instructions at home: Medicines ??? Take pzkn-ufq-igyzdpo and prescription medicines only as told by [...] and water are not available, use hand box sealing machine catcher. ??? Change your dressing and packing as [...] provider. Document Revised: 01/29/2019 Document Reviewed: 01/29/2019 [employer]Coa[employer] Patient Education ?? 2020 [employer]. Outpatient Surgery, Adult, Care After These [...] and water are not available, use hand box sealing machine catcher. ? Change your dressing as told by [...] or a bad smell. Medicines ??? Take tilr-lxl-mwmhxmr and prescription medicines only as told by [...] provider. Document Revised: 05/29/2018 Document Reviewed: 06/20/2016 [employer] Patient Education ?? 2020 Elsevier Inc. General Anesthesia, Adult, Care After This [...] activities are safe for you. ??? Take ubzt-pyu-aclknlf and prescription medicines only as told by [...] provider. Document Revised: 03/03/2018 Document Reviewed: 10/14/2017 [employer] Patient Education ?? 2020 Lee Silber. Emergency Awareness and Preventative Care STROKE is [...] Assistance with quitting is available by contacting 4-420-LLTH-NOW. This is a free resource providing counseling, [...] range between ( 1.0 and 7.0 ) [place] #: 0.23 K/uL -- Normal range between ( 0.24 and 0.82 ) Eos #: 0.03 K/uL -- Normal range between ( 0.04 and 0.54 ) [place] %: 3.2 % -- Normal range between [...] was given the opportunity to ask questions. Patient/Contractor General Engineering Name: Patient/Contractor General Engineering Signature: Relationship to Patient: Clinician/Hospital Contractor General Engineering Signature: Date: documented in this encounter Plan of Treatment Not on file documented as of this encounter Visit Diagnoses Not on filedocumented in this encounter Care Teams Reprographics Associate Relationship Specialty Start Date End Date Mari Carrero, FIELD TRAFFIC INVESTIGATOR [address] [place] [address] PCP - General Nurse Practitioner 08/10/23 documented as of this encounter
== END 2024-09-17 23:59 | disposition home or self-care (01) ==
LOC: LAB.DROPOF 09-18 10:06
PROVIDERS: PCP Nurse Practitioner Family; Visit Provider Nurse Practitioner Family
DX: A49.8 Other bacterial infections of unspecified site (principal)
CPT/HCPCS: 87086; 87088; 87186

== ENCOUNTER 2024-09-19 16:48 | Outpatient (CLI) | payer MEDICARE, SELFPAY ==
--- OUTSIDE RECORDS SUMMARY | 2024-09-20 13:43 | XMS_ITS | Encounter Summary ---
Author Organization [employer] ([place], [place], [place], [place]) Address [address] [place] [address] Care Team Providers Care Language Specialist Name Role Phone Mari Carrero APRN Primary Care Provider Encounter Details Date Type Department Care Team (Late st Contact Info) Description 11/05/2020 Transcribed Document [facility] Family Medicine [facility] [place] [address] ProviderRoselyn MD [address] [place] [address] Social History Tobacco Use Types Packs/Day [...] DOMINGUEZ /Sex: 1955 Female Med Rec #: [id number] Physician: DONY CERVANTES MD-OBG Financial #: [id number] Pt. Type: O Room/Bed: [facility] Admit/Disch: 11/05/20 09:46:00 - Institution: [facility] IntraOp Case Attendance Entry 1 Entry 2 Entry 3 Case Attendee DONY CERVANTES MD-OBG ANNI GOODRICH APRN, Brock, Deanna ASSOCIATE PROFESSOR OF MATHEMATICS-ANS Role Performed Surgeon/Proceduralist, ASSOCIATE PROFESSOR OF MATHEMATICS/Nurse Insurance Sales Supervisor Scrub, First First Time In 11/05/20 12:28:00 [...] Christianson RN-PATIENT CARE BEDSIDE NON-EXEMPT Role Performed Bible Teacher, First Time In 11/05/20 12:28:00 Time Out 11/05/20 13:56:00 Procedure Mass Excision Genitalia Other Attendee Superficial Wound Closed By: Last Modified By: Brittani Christianson RN-PATIENT CARE BEDSIDE NON-EXEMPT 11/05/20 13:56:02 [facility] IntraOp Case Attendance Audit 11/05/20 13:56:02 Control Officer Manager: [id number] Modifier: [id number] <+> Time Out 1 <*> Procedure Mass Excision Genitalia 2 <+> Time Out 2 <*> Procedure Mass Excision Genitalia 3 <+> Time Out 3 <*> Procedure Mass Excision Genitalia 4 <+> Time Out 4 <*> Procedure Mass Excision Genitalia 11/05/20 13:10:37 Control Officer Manager: [id number] Modifier: [id number] <+> Time In 1 <*> Procedure Mass Excision Genitalia 2 <+> Time In 2 <*> Procedure Mass Excision Genitalia 3 <+> Time In 3 <*> Procedure Mass Excision Genitalia 4 <+> Time In 4 <*> Procedure Mass Excision Genitalia 11/05/20 12:53:31 Control Officer Manager: [id number] Modifier: [id number] <+> 2 Case Attendee <+> 2 Role [...] [facility] IntraOp Case Times Audit 11/05/20 13:55:49 Control Officer Manager: [id number] Modifier: [id number] <+> 1 Out Room Time <+> 1 [...] Patient Transport ANNI GOODRICH APRN, Accompanied by ASSOCIATE PROFESSOR OF MATHEMATICS-ANS, Brittani Christianson RN-PATIENT CARE BEDSIDE NON-EXEMPT Last Modified By: Brittani Christianson RN-PATIENT CARE BEDSIDE NON-EXEMPT 11/05/20 13:04:23 [facility] IntraOp Drains and Tubes Entry 1 Device Type Randy Size 1/4 Drain/Tube Activity Inserted Method of [...] NON-EXEMPT 11/05/20 13:06:09 [facility] IntraOp General Case Fibreglass Laminator 1 Case Information OR OR 04 [facility] [...] 0.5% w/ epinephrine 1:200,000 30ml vial - [id number] Route of TO FIELD Administration Dose Dose [...] Intra Op Sign Out Audit 11/05/20 13:55:56 Control Officer Manager: [id number] Modifier: [id number] <+> 1 RN Sign Out Signature Date/Time [...] [facility] IntraOp Surgical Procedures Audit 11/05/20 13:56:01 Control Officer Manager: [id number] Modifier: [id number] <+> 1 Stop 11/05/20 13:09:58 Control Officer Manager: [id number] Modifier: [id number] <+> 1 Start [facility] IntraOp Temp Regulation Devices Entry 1 Temp Regulation Temperature Forced Air Warming Regulation Device device Temperature Upper body Regulation Site Temperature Device HIGH Setting Temperature ANNI GOODRICH APRN, Regulation Device ASSOCIATE PROFESSOR OF MATHEMATICS-ANS Applied by Last Modified By: Brittani Christianson [...] NON-EXEMPT 11/05/20 13:56 Electronically signed by [facility] Conversion Field Auto Appraiser Cerner at 06/27/2022 8:33 PM CDT documented in this encounter Plan of Treatment Not on file documented as of this encounter Visit Diagnoses Not on filedocumented in this encounter Care Teams Language Specialist Relationship Specialty Start Date End Date Mari Carrero, COREMAKING SUPERVISOR [address] [place] [address] PCP - General Nurse Practitioner 08/10/23 documented as of this encounter
--- OUTSIDE RECORDS SUMMARY | 2024-09-20 13:43 | XMS_ITS | Encounter Summary ---
Author Organization [employer] ([place], [place], [place], [place]) Address [address] [place] [address] Care Team Providers Care Weight And Balance Control Agent Name Role Phone Mari Carrero APRN Primary Care Provider Encounter Details Date Type Department Care Team (Late st Contact Info) Description 11/05/2020 Transcribed Document [facility] [place] [address] ProviderRoselyn MD [address] [place] [address] Social History Tobacco Use Types Packs/Day [...] DOMINGUEZ /Sex: 1955 Female Med Rec #: [id number] Physician: DONY CERVANTES MD-OBG Financial #: [id number] Pt. Type: O Room/Bed: [facility] Admit/Disch: 11/05/20 09:46:00 - Institution: [facility] PreOp Case Times Entry 1 In Preop 11/05/20 09:55:00 Ready for Holding n/a Room Patient Ready for 11/05/20 10:30:00 Surgery Patient Out of Preop 11/05/20 12:20:00 Patient Out of n/a Holding Room Last Modified By: Katelyn Ga RN 11/05/20 17:26:05 [facility] PreOp Case Times Audit 11/05/20 17:26:05 Motion Study Analyst: [email or web address] Modifier: [id number] <+> 1 Patient Out of Preop Finalized By: Katelyn Ga, RN Document Signatures Signed By: Katelyn Ga RN 11/05/20 17:26 documented in this encounter Plan of Treatment Not on file documented as of this encounter Visit Diagnoses Not on filedocumented in this encounter Care Teams Weight And Balance Control Agent Relationship Specialty Start Date End Date Mari Carrero, SENIOR SOFTWARE ARCHITECT [address] [place] [id number] PCP - General Nurse Practitioner 08/10/23 documented as of this encounter
--- OUTSIDE RECORDS SUMMARY | 2024-09-20 13:43 | XMS_ITS | Encounter Summary ---
Author Organization [employer] ([place], [place], [place], [place]) Address [address] [place] [address] Care Team Providers Care Two Needle Machine Operator Name Role Phone Mari Carrero APRN Primary Care Provider [phone] Encounter Details Date Type Department Care Team (Late st Contact Info) Description 11/05/2020 Transcribed Document [facility] Family Medicine [facility] [place] [address] ProviderRoselyn MD [address] [place] [address] Social History Tobacco Use Types Packs/Day [...] BUSH /Sex: 1955 Female Med Rec #: [id number] Physician: DONY CERVANTES MD-OBG Financial #: [id number] Pt. Type: O Room/Bed: [facility] Admit/Disch: 11/05/20 09:46:00 - Institution: [facility] Main OR PostOp Case Times Entry 1 In PACU II 11/05/20 15:00:00 Ready for PACU II 11/05/20 15:30:00 Discharge Discharge from PACU 11/05/20 15:45:00 II Last Modified By: KATHLEEN BRAMBILA, RN 11/05/20 16:01:57 [facility] Main OR PostOp Case Times Audit 11/05/20 16:01:57 Load Out Worker: [email or web address] Modifier: [email or web address] <+> 1 Discharge from PACU II 11/05/20 15:47:34 Load Out Worker: [email or web address] Modifier: [email or web address] <+> 1 Ready for PACU II Discharge Finalized By: KATHLEEN BRAMBILA, RN Document Signatures Signed By: KATHLEEN BRAMBILA RN 11/05/20 16:02 documented in this encounter Plan of Treatment Not on file documented as of this encounter Visit Diagnoses Not on filedocumented in this encounter Care Teams Two Needle Machine Operator Relationship Specialty Start Date End Date Mari Carrero, GENERAL SUPERINTENDENT [address] [address] PCP - General Nurse Practitioner 08/10/23 documented as of this encounter
--- OUTSIDE RECORDS SUMMARY | 2024-09-20 13:43 | XMS_ITS | Encounter Summary ---
Author Organization [employer] ([place], [place], [place], [place]) Address [address] [place] [address] Care Team Providers Care Dope Sprayer Name Role Phone Mari Carrero APRN Primary Care Provider Encounter Details Date Type Department Care Team (Late st Contact Info) Description 11/05/2020 Transcribed Document [facility] [facility] [place] [address] ProviderRoselyn MD [address] [place] [address] Social History Tobacco Use Types Packs/Day [...] Roselyn ProviderMD - 11/05/2020 3:09 PM CDT [address] [address] ANN MARIE BUSH :1955 Visit [...] EDT Where: [address] [place] [address]- [facility] (1) Medications What How Much When Instructions Next Dose acetaminophen-hydrocodone ([place] 10 mg-325 mg oral tablet) 1 Tablet(s) [...] (fluticasone 50 mcg/ inh nasal spray) 2 [place](s) Nasal Every Day furosemide (furosemide 40 mg [...] these instructions at home: Medicines ??? Take mowu-kso-yxqevip and prescription medicines only as told by [...] and water are not available, use hand vp ad products and planning. ??? Change your dressing and packing as [...] provider. Document Revised: 01/29/2019 Document Reviewed: 01/29/2019 ElsePanj[employer] Patient Education ?? 2020 [employer]. Outpatient Surgery, Adult, Care After These [...] and water are not available, use hand vp ad products and planning. ? Change your dressing as told by [...] or a bad smell. Medicines ??? Take wwvg-qah-xihdmub and prescription medicines only as told by [...] provider. Document Revised: 05/29/2018 Document Reviewed: 06/20/2016 [employer] Patient Education ?? 2020 Elsevier Inc. General [...] activities are safe for you. ??? Take zblc-ewi-dxhqngb and prescription medicines only as told by [...] provider. Document Revised: 03/03/2018 Document Reviewed: 10/14/2017 [employer] Patient Education ?? 2020 [employer]. Emergency Awareness and Preventative Care STROKE is [...] Assistance with quitting is available by contacting 8-502-NLVA-NOW. This is a free resource providing counseling, [...] range between ( 1.0 and 7.0 ) [place] #: 0.23 K/uL -- Normal range between ( 0.24 and 0.82 ) Eos #: 0.03 K/uL -- Normal range between ( 0.04 and 0.54 ) [place] %: 3.2 % -- Normal range between [...] was given the opportunity to ask questions. Patient/Lock Maintenance Supervisor Name: Patient/Lock Maintenance Supervisor Signature: Relationship to Patient: Clinician/Hospital Lock Maintenance Supervisor Signature: Date: documented in this encounter Plan of Treatment Not on file documented as of this encounter Visit Diagnoses Not on filedocumented in this encounter Care Teams Dope Sprayer Relationship Specialty Start Date End Date Mari Carrero, KILN DOOR BUILDER [address] [place] [address] PCP - General Nurse Practitioner 08/10/23 documented as of this encounter
--- OUTSIDE RECORDS SUMMARY | 2024-09-20 13:43 | XMS_ITS | Clinical Summary ---
Author Organization [facility] Address [address] [place] [address] Care Team Providers Care Otr Tanker Truck Driver Name Role Phone Reynold Khan MD Primary Care Provider [phone] Allergies Active Allergy Reactions Criticality Noted Date [...] day. Active cholecalciferol (Vitamin D3) 1.25 MG (89315 UT) tablet Take 50,000 Units by mouth [...] No Healthcare Surrogate: Healthcare POA Care Teams Otr Tanker Truck Driver Relationship Specialty Start Date End Date Reynold Khan MD [address] [place] [address] PCP - General 07/25/20
--- OUTSIDE RECORDS SUMMARY | 2024-09-20 13:43 | XMS_ITS | Clinical Summary ---
Author Organization [employer] ([place], [place], [place], [place]) Address [address] [place] [address] Care Team Providers Care Store Assistant Name Role Phone Mari Carrero PROFILING MACHINE SETUP OPERATOR Primary Care Provider Allergies Active Allergy Reactions [...] Due Influenza High Dose Preservative Free IM (JSL903 ) 03/31/2020 Influenza Quad-qiv Non Pf 01/23/2018 [...] Date Silviano rded Speak language other than Bahamian at home Not on file 05/25/2023 Want [...] 08/09/2028 08/10/2023 Colorectal Cancer Screening 08/09/2028 Insurance [facility] MEDICARE ADVANTAGE Care Teams Store Assistant Relationship Specialty Start Date End Date Mari Carrero, PROFILING MACHINE SETUP OPERATOR [address] [place] [address] PCP - General Nurse Practitioner 08/10/23
--- OUTSIDE RECORDS SUMMARY | 2024-09-20 13:43 | XMS_ITS | Referral Summary ---
Author Organization [employer] ([place], [place], [place], [place]) Address [address] [place] [address] Care Team Providers Care Residential Subcontractor Name Role Phone Mari Carrero PAPER TESTING SUPERVISOR Primary Care Provider Allergies Active Allergy Reactions [...] Due Influenza High Dose Preservative Free IM (UHG542 ) 03/31/2020 Influenza Quad-qiv Non Pf 01/23/2018 [...] Date Silviano rded Speak language other than Kyrgyz at home Not on file 05/25/2023 Want [...] Plan of Treatment Not on file Insurance [facility] MEDICARE ADVANTAGE Care Teams Residential Subcontractor Relationship Specialty Start Date End Date Mari Carrero, PAPER TESTING SUPERVISOR [address] [place] [address] PCP - General Nurse Practitioner 08/10/23
--- OUTSIDE RECORDS SUMMARY | 2024-09-20 13:43 | XMS_ITS | Encounter Summary ---
Author Organization [employer] ([place], [place], [place], [place]) Address [address] [place] [address] Care Team Providers Care Senior Account Executive Name Role Phone Mari Carrero APRN Primary Care Provider [phone] Encounter Details Date Type Department Care Team (Late st Contact Info) Description 11/04/2020 Transcribed Document [facility] [place] Family Medicine [address] [place] [address] ProviderRoselyn MD [address] [place] [address] Social History Tobacco Use Types Packs/Day Years [...] to me by Dr. Main Paez in [place], [place], with a problem of an inflammatory [...] SOCIAL HISTORY: The patient is a one kemy-eby-uzo cigarette smoker. PHYSICAL EXAMINATION: GENERAL: Shows a [...] extension. ASSESSMENT: As above. PLAN: As above. /[id number] MD ANG Del AngelB/PER / LSBianca / MODL Electronically signed by [facility] Conversion Wax Machine Operator Cerner at 06/27/2022 8:21 PM CDT documented in this encounter Plan of Treatment Not on file documented as of this encounter Visit Diagnoses Not on filedocumented in this encounter Care Teams Senior Account Executive Relationship Specialty Start Date End Date Mari Carrero, NATURAL GAS TREATING UNIT OPERATOR [address] [address] PCP - General Nurse Practitioner 08/10/23 documented as of this encounter
--- OUTSIDE RECORDS SUMMARY | 2024-09-20 13:43 | XMS_ITS | Encounter Summary ---
Author Organization [facility] Address [address] [place] [address] Care Team Providers Care Product Safety Test Engineer Name Role Phone Reynold Khan MD Primary Care Provider [phone]- [phone] Encounter Details Date Type Department Care Team (Late st Contact Info) Description 07/19/2022 Lab Requisition [facility] [address] [place] [address] Maxwell Neal MD [address] [place] [address] Encounter for general adult medical [...] Date of Assessment Author Initial/First Attempt Date [address] 07/19/2022 2:0 0 PM EDT Maliha Bond [...] 1 Month) Yes 07/19/2022 2:00 PM EDT Giaocmo Bond RN 4. Active Suicidal Ideation with [...] GENERAL ORDERABLES Final Result Performing Organization Address City/State/[facility] Co de Phone Number [facility] [address] [place] [address] documented in this encounter Visit Diagnoses Diagnosis Encounter for general adult medical examination without abnormal findings documented in this encounter Care Teams Product Safety Test Engineer Relationship Specialty Start Date End Date Reynold Khan MD [address] [place] [address] PCP - General 07/25/20 documented as of this encounter
--- OUTSIDE RECORDS SUMMARY | 2024-09-20 13:43 | XMS_ITS | Encounter Summary ---
Author Organization [employer] ([place], [place], [place], [place]) Address [address] [place] [address] Care Team Providers Care Order Department Supervisor Name Role Phone Mari Carrero APRN Primary Care Provider Encounter Details Date Type Department Care Team (Late st Contact Info) Description 11/05/2020 Transcribed Document [facility] Family [place] [address] ProviderRoselyn MD [address] [place] [address] Social History Tobacco Use Types Packs/Day [...] Date/Time: 11/05/20 15:08:22 Pt. Name: ANN MARIE DOMINGUEZE /Sex: 1955 Female Med Rec #: [id number] Physician: DONY CERVANTES MD-OBG Financial #: [id number] Pt. Type: O Room/Bed: [facility] Admit/Disch: 11/05/20 09:46:00 - Institution: [facility] Main [place] PACU Case Times Entry 1 In PACU I 11/05/20 13:56:00 Ready for PACU 11/05/20 14:55:00 Discharge Discharge from PACU 11/05/20 14:55:00 I Last Modified By: BLANCA KEYS RN 11/05/20 15:08:20 Finalized By: BLANCA KEYS RN Document Signatures Signed By: BLANCA KEYS RN 11/05/20 15:08 Electronically signed by [facility] Conversion Gravure Printing Machinist Cerner at 06/27/2022 8:34 PM CDT documented in this encounter Plan of Treatment Not on file documented as of this encounter Visit Diagnoses Not on filedocumented in this encounter Care Teams Order Department Supervisor Relationship Specialty Start Date End Date Mari Carrero, YARD CLERK [address] [place] [address] PCP - General Nurse Practitioner 08/10/23 documented as of this encounter
--- OUTSIDE RECORDS SUMMARY | 2024-09-20 13:43 | XMS_ITS | Encounter Summary ---
Author Organization [employer] ([place], [place], [place], [place]) Address [address] [place] [address] Care Team Providers Care Tape Folding Machine Operator Name Role Phone Mari Carrero APRN Primary Care Provider Encounter Details Date Type Department Care Team (Late st Contact Info) Description 11/05/2020 Transcribed Document [facility] [place] Family Medicine [address] [place] [address] ProviderRoselyn MD [address] [place] [address] Social History Tobacco Use Types Packs/Day [...] was drained by Dr. Main Paez in [facility], was purulent, but it has been present [...] the top part, but we put a Randy drain in for drainage and sutured it to the skin with 2-0 Vicryl and closed the skin with louie. The patient was taken to postop recovery room in satisfactory condition and she was given and clindamycin as preop clinical antibiotics. ESTIMATED BLOOD LOSS: Approximately 15 to 20 mL. /[id number] Zane Redman MD LSB/AQ / LSB / MODL /[id number] documented in this encounter Plan of Treatment Not on file documented as of this encounter Visit Diagnoses Not on filedocumented in this encounter Care Teams Tape Folding Machine Operator Relationship Specialty Start Date End Date Mari Carrero APRN [address] [address] PCP - General Nurse Practitioner 08/10/23 documented as of this encounter
--- OUTSIDE RECORDS SUMMARY | 2024-09-20 13:43 | XMS_ITS | Encounter Summary ---
Author Organization [employer] ([place], [place], [place], [place]) Address [address] [place] [address] Care Team Providers Care Health Program Specialist Name Role Phone Mari Carrero APRN Primary Care Provider Encounter Details Date Type Department Care Team (Late st Contact Info) Description 11/05/2020 Transcribed Document [facility] [place] Family Medicine [facility] [address] ProviderRoselyn MD [address] [place] [address] Social History Tobacco Use Types Packs/Day [...] these instructions at home: Medicines ??? Take zdds-yre-keadfqb and prescription medicines only as told by [...] and water are not available, use hand certified medical coding specialist. ??? Change your dressing and packing as [...] provider. Document Revised: 01/29/2019 Document Reviewed: 01/29/2019 CitySpade Patient Education ? 2020 Elsevier Inc. Pharmacology [...] activities are safe for you. ??? Take vzdj-bzv-fwqoblx and prescription medicines only as told by [...] provider. Document Revised: 03/03/2018 Document Reviewed: 10/14/2017 [employer] Patient Education ? 2020 [employer] Inc. Procedures Outpatient Surgery, Adult, Care After [...] and water are not available, use hand certified medical coding specialist. ? Change your dressing as told by [...] or a bad smell. Medicines ??? Take bsyh-pyj-ljwupur and prescription medicines only as told by [...] provider. Document Revised: 05/29/2018 Document Reviewed: 06/20/2016 [employer] Patient Education ? 2020 [employer] Inc. documented in this encounter Plan of Treatment Not on file documented as of this encounter Visit Diagnoses Not on filedocumented in this encounter Care Teams Health Program Specialist Relationship Specialty Start Date End Date Mari Carrero APRN [address] [address] PCP - General Nurse Practitioner 08/10/23 documented as of this encounter
--- OUTSIDE RECORDS SUMMARY | 2024-09-20 13:43 | XMS_ITS | Encounter Summary ---
Author Organization [employer] ([place], [place], [place], [place]) Address [address] [place] [address] Care Team Providers Care Medical Office Supervisor Name Role Phone Mari Carrero APRN Primary Care Provider Encounter Details Date Type Department Care Team (Late st Contact Info) Description 11/05/2020 Transcribed Document [facility] [place] [address] ProviderRoselyn MD [address] [place] [address] Social History Tobacco Use Types [...] Source : Stated Height Entry Format : [place] Height, Feet : 5 ft(Converted to: 152 cm, 60 Inch) Height, Inches : 2 Inch(Converted to: 0 ft 2 Inch, 5.08 cm) Clinical Height : 157.48 cm Weight Source : Standing scale Weight Entry Format : [place] Clinical Dosing Weight : 85.91 kg Weight, Pounds : 189 lb Body Surface Area (BSA) : 1.87 m2 Body Mass Index : 34.6 kg/m2 (HI) [place] Body Weight : 50 kg Alisha Munoz [...] Alisha Munoz Rn - 11/05/2020 10:40 EDT [place] Suicide Severity Rating Scale (C-SSRS) CSSRS Past [...] Obtained From : Patient Primary Language : Djiboutian Communication Barrier : None Hide Mill Worker Needed : No Alisha Munoz Rn - [...] filedocumented in this encounter Care Teams Medical Office Supervisor Relationship Specialty Start Date End Date Mari Carrero, MARTIR [address] [place] [address] PCP - General Nurse Practitioner 08/10/23 documented as of this encounter
== END 2024-09-19 23:59 | disposition home or self-care (01) ==
LOC: LAB.DROPOF 09-20 13:41
PROVIDERS: PCP Nurse Practitioner Family; Visit Provider Nurse Practitioner Family
DX: N76.0 Acute vaginitis (principal)
CPT/HCPCS: 87070; 87205

== ENCOUNTER 2024-09-20 15:18 | Outpatient (CLI) | payer MEDICARE, SELFPAY ==
--- OUTSIDE RECORDS SUMMARY | 2024-09-20 15:20 | XMS_ITS | Continuity of Care Document ---
Author Organization [facility]. If a dditional information is needed, contact Health Information Management at [phone] [address] [place] [address] Phone Care Team Providers Care Industrial Millwright Name Role Phone Unavailable Unavailable Unavailable Unavailable [...] ORAL QAM Start:16-Jul-2022 Comments:60 mg PO QAM sertraline 50 MG Oral Tablet ;50 MG ORAL Daily Start:16-Jul-2022 Comments:50 mg PO DAILY rosuvastatin 20 mg tablet;20 MG ORAL At Bedtime Start:16-Jul-2022 Comments:20 mg PO BEDTIME omeprazole 40 MG Delayed Rel ease Oral Capsule;40 MG ORAL Two Times a Day Start:16-Jul-2022 Comments:40 mg PO BID Decara;1250 MCG ORAL Weekly Start:16-Jul-2022 Comments:1250 mcg PO WEEKLY
--- OUTSIDE RECORDS SUMMARY | 2024-09-20 15:22 | XMS_ITS | Encounter Summary ---
Author Organization [employer] ([place], [place], [place], [place]) Address [address] [place] [address] Care Team Providers Care Pre Sales Technical Engineer Name Role Phone Mari Carrero APRN Primary Care Provider Encounter Details Date Type Department Care Team (Late st Contact Info) Description 11/05/2020 Transcribed Document [facility] [place] [address] ProviderRoselyn MD [address] [place] [address] Social History Tobacco Use Types Packs/Day [...] Roselyn ProviderMD - 11/05/2020 3:09 PM CDT [address] [address] ANN MARIE BUSH :1955 Visit [...] EDT Where: [address] [place] [address]- [facility] (1) Medications What How Much When Instructions Next Dose acetaminophen-hydrocodone ([place] 10 mg-325 mg oral tablet) 1 Tablet(s) [...] (fluticasone 50 mcg/ inh nasal spray) 2 [place](s) Nasal Every Day furosemide (furosemide 40 mg [...] these instructions at home: Medicines ??? Take idnc-hqh-zyhltoa and prescription medicines only as told by [...] and water are not available, use hand night nurse. ??? Change your dressing and packing as [...] provider. Document Revised: 01/29/2019 Document Reviewed: 01/29/2019 Elsenetomat Patient Education ?? 2020 [employer] Messaging Inc. Outpatient Surgery, Adult, Care After These [...] and water are not available, use hand night nurse. ? Change your dressing as told by [...] or a bad smell. Medicines ??? Take ghgq-ppc-cenbdwg and prescription medicines only as told by [...] provider. Document Revised: 05/29/2018 Document Reviewed: 06/20/2016 Elsenetomat Patient Education ?? 2020 Elsevier Inc. General [...] activities are safe for you. ??? Take ucrg-uin-cxttsjy and prescription medicines only as told by [...] provider. Document Revised: 03/03/2018 Document Reviewed: 10/14/2017 [employer] Mess[employer] Patient Education ?? 2020 Wonderloop. Emergency Awareness and Preventative Care STROKE is [...] Assistance with quitting is available by contacting 1-653-NJNG-NOW. This is a free resource providing counseling, [...] range between ( 1.0 and 7.0 ) [place] #: 0.23 K/uL -- Normal range between ( 0.24 and 0.82 ) Eos #: 0.03 K/uL -- Normal range between ( 0.04 and 0.54 ) [place] %: 3.2 % -- Normal range between [...] was given the opportunity to ask questions. Patient/Critical Care Technician Name: Patient/Critical Care Technician Signature: Relationship to Patient: Clinician/Hospital Critical Care Technician Signature: Date: documented in this encounter Plan of Treatment Not on file documented as of this encounter Visit Diagnoses Not on filedocumented in this encounter Care Teams Pre Sales Technical Engineer Relationship Specialty Start Date End Date Mari Carrero, PROPERTY ASSISTANT [address] [place] [address] PCP - General Nurse Practitioner 08/10/23 documented as of this encounter
--- OUTSIDE RECORDS SUMMARY | 2024-09-20 15:22 | XMS_ITS | Clinical Summary ---
Author Organization [facility] ([place], [place], [place], [place]) Address [address] [place] [address] Care Team Providers Care Neon Molder Name Role Phone Mari Carrero WELDER APPRENTICE GAS Primary Care Provider Allergies Active Allergy Reactions [...] Due Influenza High Dose Preservative Free IM (ZHC074 ) 03/31/2020 Influenza Quad-qiv Non Pf 01/23/2018 [...] Date Silviano rded Speak language other than Czech at home Not on file 05/25/2023 Want [...] 08/09/2028 08/10/2023 Colorectal Cancer Screening 08/09/2028 Insurance [facility] MEDICARE ADVANTAGE Care Teams Neon Molder Relationship Specialty Start Date End Date Mari Carrero, WELDER APPRENTICE GAS [address] [place] [address] PCP - General Nurse Practitioner 08/10/23
--- OUTSIDE RECORDS SUMMARY | 2024-09-20 15:22 | XMS_ITS | Referral Summary ---
Author Organization [employer] ([place], [place], [place], [place]) Address [address] [place] [address] Care Team Providers Care Repairer Sash And Door Name Role Phone Mari Carrero HEEL ROOM SUPERVISOR Primary Care Provider Allergies Active Allergy [...] Due Influenza High Dose Preservative Free IM (HQS937 ) 03/31/2020 Influenza Quad-qiv Non Pf 01/23/2018 [...] Date Silviano rded Speak language other than [place] at home Not on file 05/25/2023 Want [...] Plan of Treatment Not on file Insurance [facility] MEDICARE ADVANTAGE Care Teams Repairer Sash And Door Relationship Specialty Start Date End Date Mari Carrero, HEEL ROOM SUPERVISOR [address] [place] [address] PCP - General Nurse Practitioner 08/10/23
--- OUTSIDE RECORDS SUMMARY | 2024-09-20 15:22 | XMS_ITS | Encounter Summary ---
Author Organization [employer] ([place], [place], [place], [place]) Address [address] [place] [address] Care Team Providers Care 3Rd Pressman Name Role Phone Mari Carrero APRN Primary Care Provider Encounter Details Date Type Department Care Team (Late st Contact Info) Description 11/05/2020 Transcribed Document [facility] [place] [facility] [place] [address] ProviderRoselyn MD [address] [place] [address] Social History Tobacco Use Types Packs/Day [...] DOMINGUEZE /Sex: 1955 Female Med Rec #: [id number] Physician: DONY CERVANTES MD-OBG Financial #: [id number] Pt. Type: O Room/Bed: [facility] Admit/Disch: 11/05/20 09:46:00 - Institution: [facility] [place] Main [place] PACU Case Times Entry 1 In PACU I 11/05/20 13:56:00 Ready for PACU 11/05/20 14:55:00 Discharge Discharge from PACU 11/05/20 14:55:00 I Last Modified By: BLANCA KEYS RN 11/05/20 15:08:20 Finalized By: BLANCA KEYS RN Document Signatures Signed By: BLANCA KEYS RN 11/05/20 15:08 Electronically signed by Marion [facility] Conversion Water Aerobics Instructor Cerner at 06/27/2022 8:34 PM CDT documented in this encounter Plan of Treatment Not on file documented as of this encounter Visit Diagnoses Not on filedocumented in this encounter Care Teams 3Rd Pressman Relationship Specialty Start Date End Date Mari Carrero, PLAYERS ASSISTANT [address] [place] [address] PCP - General Nurse Practitioner 08/10/23 documented as of this encounter
--- OUTSIDE RECORDS SUMMARY | 2024-09-20 15:22 | XMS_ITS | Encounter Summary ---
Author Organization [employer] ([place], [place], [place], [place]) Address [address] [place] [address] Care Team Providers Care Gm Name Role Phone Mari Carrero APRN Primary Care Provider Encounter Details Date Type Department Care Team (Late st Contact Info) Description 11/05/2020 Transcribed Document [facility] [place] Family Medicine [facility] [place] [address] ProviderRoselyn MD [address] [place] [address] Social History Tobacco Use Types [...] Source : Stated Height Entry Format : [place] Height, Feet : 5 ft(Converted to: 152 cm, 60 Inch) Height, Inches : 2 Inch(Converted to: 0 ft 2 Inch, 5.08 cm) Clinical Height : 157.48 cm Weight Source : Standing scale Weight Entry Format : [place] Clinical Dosing Weight : 85.91 kg Weight, Pounds : 189 lb Body Surface Area (BSA) : 1.87 m2 Body Mass Index : 34.6 kg/m2 (HI) [place] Body Weight : 50 kg Alisha Munoz [...] Alisha Munoz Rn - 11/05/2020 10:40 EDT [place] Suicide Severity Rating Scale (C-SSRS) CSSRS Past [...] Obtained From : Patient Primary Language : Lithuanian Communication Barrier : None Ship Scraper Needed : No Alisha Munoz Rn - [...] on filedocumented in this encounter Care Teams Gm Relationship Specialty Start Date End Date Mari Carrero, MARTIR [address] [place] [address] PCP - General Nurse Practitioner 08/10/23 documented as of this encounter
--- OUTSIDE RECORDS SUMMARY | 2024-09-20 15:22 | XMS_ITS | Encounter Summary ---
Author Organization [employer] ([place], [place], [place], [place]) Address [address] [place] [address] Care Team Providers Care Senior Electronics Design Engineer Name Role Phone Mari Carrero APRN Primary Care Provider Encounter Details Date Type Department Care Team (Late st Contact Info) Description 11/05/2020 Transcribed Document [facility] [place] [facility] [place] [address] ProviderRoselyn MD [address] [place] [address] Social History Tobacco Use Types Packs/Day [...] BUSH /Sex: 1955 Female Med Rec #: [id number] Physician: DONY CERVANTES MD-OBG Financial #: [id number] Pt. Type: O Room/Bed: [facility] Admit/Disch: 11/05/20 09:46:00 - Institution: [facility] Main OR PostOp Case Times Entry 1 In PACU II 11/05/20 15:00:00 Ready for PACU II 11/05/20 15:30:00 Discharge Discharge from PACU 11/05/20 15:45:00 II Last Modified By: KATHLEEN BRAMBILA, RN 11/05/20 16:01:57 [facility] Main OR PostOp Case Times Audit 11/05/20 16:01:57 Electronic Gaming Device Supervisor: ELDERJM Modifier: ELDERJM <+> 1 Discharge from PACU II 11/05/20 15:47:34 Electronic Gaming Device Supervisor: ELDERJM Modifier: ELDERJM <+> 1 Ready for PACU II Discharge Finalized By: KATHLEEN BRAMBILA, RN Document Signatures Signed By: KATHLEEN BRAMBILA RN 11/05/20 16:02 documented in this encounter Plan of Treatment Not on file documented as of this encounter Visit Diagnoses Not on filedocumented in this encounter Care Teams Senior Electronics Design Engineer Relationship Specialty Start Date End Date Mari Carrero, ELECTRICITY TRADING ANALYST [address] [address] PCP - General Nurse Practitioner 08/10/23 documented as of this encounter
--- OUTSIDE RECORDS SUMMARY | 2024-09-20 15:22 | XMS_ITS | Encounter Summary ---
Author Organization [employer] ([place], [place], [place], [place]) Address [address] [place] [address] Care Team Providers Care Insurance Underwriter Sales Name Role Phone Mari Carrero APRN Primary Care Provider Encounter Details Date Type Department Care Team (Late st Contact Info) Description 11/05/2020 Transcribed Document [facility] [place] Family Medicine [facility] [place] [address] ProviderRoselyn MD [address] [place] [address] Social History Tobacco Use Types Packs/Day [...] these instructions at home: Medicines ??? Take qscj-zaq-reawmpa and prescription medicines only as told by [...] and water are not available, use hand family protection specialist. ??? Change your dressing and packing [...] provider. Document Revised: 01/29/2019 Document Reviewed: 01/29/2019 [employer] Patient Education ? 2020 Elsevier Inc. Pharmacology [...] activities are safe for you. ??? Take lauu-gqo-wnayeyt and prescription medicines only as told by [...] provider. Document Revised: 03/03/2018 Document Reviewed: 10/14/2017 [employer] Patient Education ? 2020 [employer] Inc. Procedures Outpatient Surgery, Adult, Care After [...] and water are not available, use hand family protection specialist. ? Change your dressing as told [...] or a bad smell. Medicines ??? Take smpx-zgy-txqkoaq and prescription medicines only as told by [...] provider. Document Revised: 05/29/2018 Document Reviewed: 06/20/2016 [employer] Patient Education ? 2020 [employer] Inc. documented in this encounter Plan of Treatment Not on file documented as of this encounter Visit Diagnoses Not on filedocumented in this encounter Care Teams Insurance Underwriter Sales Relationship Specialty Start Date End Date Mari Carrero APRN [address] [address] PCP - General Nurse Practitioner 08/10/23 documented as of this encounter
--- OUTSIDE RECORDS SUMMARY | 2024-09-20 15:22 | XMS_ITS | Encounter Summary ---
Author Organization [employer] ([place], [place], [place], [place]) Address [address] [place] [address] Care Team Providers Care Rehab Nurse Name Role Phone Mari Carrero APRN Primary Care Provider Encounter Details Date Type Department Care Team (Late st Contact Info) Description 11/04/2020 Transcribed Document [facility] [place] Family Medicine [address] [place] [address] ProviderRoselyn MD [address] [place] [address] Social History Tobacco Use Types Packs/Day Years [...] to me by Dr. Main Paez in [place], [place], with a problem of an inflammatory [...] SOCIAL HISTORY: The patient is a one jaeu-exj-app cigarette smoker. PHYSICAL EXAMINATION: GENERAL: Shows a [...] extension. ASSESSMENT: As above. PLAN: As above. /[id number] MD ANG Del AngelB/PER / LSBianca / MODL Electronically signed by Marion [facility] Conversion Chief Crna Cerner at 06/27/2022 8:21 PM CDT documented in this encounter Plan of Treatment Not on file documented as of this encounter Visit Diagnoses Not on filedocumented in this encounter Care Teams Rehab Nurse Relationship Specialty Start Date End Date Mari Carrero, CHIEF LOCK OPERATOR [address] [address] PCP - General Nurse Practitioner 08/10/23 documented as of this encounter
--- OUTSIDE RECORDS SUMMARY | 2024-09-20 15:22 | XMS_ITS | Encounter Summary ---
Author Organization [facility] Address [address] [place] [address] Care Team Providers Care Trimming Machine Set Up Operator Name Role Phone Reynold Khan MD Primary Care Provider +1- [phone] Encounter Details Date Type Department Care Team (Late st Contact Info) Description 07/19/2022 Lab Requisition [facility] [address] [place] [address] Maxwell Neal MD [address] [place] [address] Encounter for general adult medical [...] Date of Assessment Author Initial/First Attempt Date [id number] 07/19/2022 2:0 0 PM EDT Maliha Bond [...] ORDERABLES Final Result Performing Organization Address City/State/[facility] Co de Phone Number [facility] [address] [place] [address] documented in this encounter Visit Diagnoses Diagnosis Encounter for general adult medical examination without abnormal findings documented in this encounter Care Teams Trimming Machine Set Up Operator Relationship Specialty Start Date End Date Reynold Khan MD [address] [place] [address] PCP - General 07/25/20 documented as of this encounter
--- OUTSIDE RECORDS SUMMARY | 2024-09-20 15:22 | XMS_ITS | Encounter Summary ---
Author Organization [employer] ([place], [place], [place], [place]) Address [address] [place] [address] Care Team Providers Care Bun Panner Name Role Phone Mari Carrero APRN Primary Care Provider Encounter Details Date Type Department Care Team (Late st Contact Info) Description 11/05/2020 Transcribed Document [facility] [place] [facility] [place] [address] ProviderRoselyn MD [address] [place] [address] Social History Tobacco Use Types Packs/Day [...] DOMINGUEZ /Sex: 1955 Female Med Rec #: [id number] Physician: DONY CERVANTES MD-OBG Financial #: [id number] Pt. Type: O Room/Bed: [facility] Admit/Disch: 11/05/20 09:46:00 - Institution[place] [facility] PreOp Case Times Entry 1 In Preop 11/05/20 09:55:00 Ready for Holding n/a Room Patient Ready for 11/05/20 10:30:00 Surgery Patient Out of Preop 11/05/20 12:20:00 Patient Out of n/a Holding Room Last Modified By: Katelyn Ga RN 11/05/20 17:26:05 [facility] PreOp Case Times Audit 11/05/20 17:26:05 Risk Control Officer: SULMA Modifier: [id number] <+> 1 Patient Out of Preop Finalized By: Katelyn Ga, RN Document Signatures Signed By: Katelyn Ga RN 11/05/20 17:26 documented in this encounter Plan of Treatment Not on file documented as of this encounter Visit Diagnoses Not on filedocumented in this encounter Care Teams Bun Panner Relationship Specialty Start Date End Date Mari Carrero, MANAGEMENT DEVELOPMENT SPECIALIST [address] [place] [id number] PCP - General Nurse Practitioner 08/10/23 documented as of this encounter
--- OUTSIDE RECORDS SUMMARY | 2024-09-20 15:22 | XMS_ITS | Clinical Summary ---
Author Organization [facility] Address [address] [place] [address] Care Team Providers Care Design Analyst Name Role Phone Reynold Khan MD Primary Care Provider +1- [phone] Allergies Active Allergy Reactions Criticality Noted Date [...] day. Active cholecalciferol (Vitamin D3) 1.25 MG (13859 UT) tablet Take 50,000 Units by mouth [...] No Healthcare Surrogate: Healthcare POA Care Teams Design Analyst Relationship Specialty Start Date End Date Reynold Khan MD [address] [place] [address] PCP - General 07/25/20
--- OUTSIDE RECORDS SUMMARY | 2024-09-20 15:22 | XMS_ITS | Encounter Summary ---
Author Organization [employer] ([place], [place], [place], [place]) Address [address] [place] [address] Care Team Providers Care Die Stamper Name Role Phone Mari Carrero APRN Primary Care Provider Encounter Details Date Type Department Care Team (Late st Contact Info) Description 11/05/2020 Transcribed Document [facility] [place] Family Medicine [address] [place] [address] ProviderRoselyn MD [address] [place] [address] Social History Tobacco Use Types Packs/Day [...] was drained by Dr. Main Paez in [facility], was purulent, but it has been [...] BLOOD LOSS: Approximately 15 to 20 mL. /[id number] Zane Redman MD LSB/AQ / LSB / MODL /[id number] documented in this encounter Plan of Treatment Not on file documented as of this encounter Visit Diagnoses Not on filedocumented in this encounter Care Teams Die Stamper Relationship Specialty Start Date End Date Mari Carrero APRN [address] [address] PCP - General Nurse Practitioner 08/10/23 documented as of this encounter
--- OUTSIDE RECORDS SUMMARY | 2024-09-20 15:22 | XMS_ITS | Encounter Summary ---
Author Organization [employer] ([place], [place], [place], [place]) Address [address] [place] [address] Care Team Providers Care Home Health Lpn Name Role Phone Mari Carrero APRN Primary Care Provider Encounter Details Date Type Department Care Team (Late st Contact Info) Description 11/05/2020 Transcribed Document [facility] [place] [facility] [place] [address] ProviderRoselyn MD [address] [place] [address] Social History Tobacco Use Types Packs/Day [...] DOMINGUEZ /Sex: 1955 Female Med Rec #: [id number] Physician: DONY CERVANTES MD-OBG Financial #: [id number] Pt. Type: O Room/Bed: [facility] Admit/Disch: 11/05/20 09:46:00 - [place] [facility] [place] Case Attendance Entry 1 Entry 2 Entry 3 Case Attendee DONY CERVANTES MD-OBG ANNI GOODRICH APRN, Brock, Deanna PETROLEUM PRODUCTION ENGINEER-ANS Role Performed Surgeon/Proceduralist, PETROLEUM PRODUCTION ENGINEER/Nurse Air Chief Marshal Scrub, First First Time In 11/05/20 12:28:00 [...] Christianson RN-PATIENT CARE BEDSIDE NON-EXEMPT Role Performed Wood Technologist, First Time In 11/05/20 12:28:00 Time Out 11/05/20 13:56:00 Procedure Mass Excision Genitalia Other Attendee Superficial Wound Closed By: Last Modified By: Brittani Christianson RN-PATIENT CARE BEDSIDE NON-EXEMPT 11/05/20 13:56:02 [facility] IntraOp Case Attendance Audit 11/05/20 13:56:02 Runway Model: [id number] Modifier: [id number] 1 <+> Time Out 1 <*> Procedure Mass Excision Genitalia 2 <+> Time Out 2 <*> Procedure Mass Excision Genitalia 3 <+> Time Out 3 <*> Procedure Mass Excision Genitalia 4 <+> Time Out 4 <*> Procedure Mass Excision Genitalia 11/05/20 13:10:37 Runway Model: [id number] Modifier: [id number] 1 <+> Time In 1 <*> Procedure Mass Excision Genitalia 2 <+> Time In 2 <*> Procedure Mass Excision Genitalia 3 <+> Time In 3 <*> Procedure Mass Excision Genitalia 4 <+> Time In 4 <*> Procedure Mass Excision Genitalia 11/05/20 12:53:31 Runway Model: [id number] Modifier: [id number] <+> 2 Case Attendee <+> 2 Role [...] [facility] IntraOp Case Times Audit 11/05/20 13:55:49 Runway Model: [id number] Modifier: [id number] <+> 1 Out Room Time <+> 1 [...] Patient Transport ANNI GOODRICH APRN, Accompanied by PETROLEUM PRODUCTION ENGINEER-ANS, Brittani Christianson RN-PATIENT CARE BEDSIDE NON-EXEMPT Last [...] NON-EXEMPT 11/05/20 13:06:09 [facility] IntraOp General Case Tobacco Roller 1 Case Information OR OR 04 [facility] [...] 0.5% w/ epinephrine 1:200,000 30ml vial - [id number] Route of TO FIELD Administration Dose Dose [...] Intra Op Sign Out Audit 11/05/20 13:55:56 Runway Model: [id number] Modifier: [id number] <+> 1 RN Sign Out Signature Date/Time [...] [facility] IntraOp Surgical Procedures Audit 11/05/20 13:56:01 Runway Model: [id number] Modifier: [id number] <+> 1 Stop 11/05/20 13:09:58 Runway Model: [id number] Modifier: [id number] <+> 1 Start [facility] IntraOp Temp Regulation Devices Entry 1 Temp Regulation Temperature Forced Air Warming Regulation Device device Temperature Upper body Regulation Site Temperature Device HIGH Setting Temperature ANNI GOODRICH APRN, Regulation Device PETROLEUM PRODUCTION ENGINEER-ANS Applied by Last Modified By: Brittani Christianson [...] NON-EXEMPT 11/05/20 13:56 Electronically signed by Marion [facility] Conversion Client Experience Manager Cerner at 06/27/2022 8:33 PM CDT documented in this encounter Plan of Treatment Not on file documented as of this encounter Visit Diagnoses Not on filedocumented in this encounter Care Teams Home Health Lpn Relationship Specialty Start Date End Date Mari Carrero, LUBE ATTENDANT [address] [place] [address] PCP - General Nurse Practitioner 08/10/23 documented as of this encounter
[2024-09-20] MEDS: SODIUM CHLORIDE 0.9% 10ML FLUSH SYRINGE 10 ML IV (15:33)
[2024-09-20 15:34] VITALS: BP 127/81; PULSE 70; RESP 20; TEMP 36.9; O2SAT 95
[2024-09-20] MEDS: ERTAPENEM SODIUM 1 GM in 0.9 % SODIUM CHLORIDE 50 ML IV (15:34)
[2024-09-20 15:36] VITALS: BMI 32.9
[2024-09-20 15:53] LABS: Anion Gap 15.0 mEq/L (5-15); Blood Urea Nitrogen 13 mg/dl (7-17); Calcium 9.4 mg/dl (8.4-10.2); Carbon Dioxide 24 mmol/L (22.0-30.0); Chloride 101 mmol/L (98-107); Creatinine Clearance Estimated 70 mL/min (50-200); Creatinine,Serum 0.60 mg/dl (0.52-1.04); Estimated Glomerular Filt Rate 99 ml/min (>60); GFR (African American) 120 ML/MIN (>60); Glucose 211 mg/dl (74-100); Potassium 5.0 mmoL/L (3.5-5.1); Sodium 135 mmol/L (136-145)
[2024-09-20 16:15] VITALS: BP 126/75; PULSE 74; RESP 20; O2SAT 96
== END 2024-09-20 16:23 | disposition home or self-care (01) ==
LOC: INF 15:19
PROVIDERS: PCP Nurse Practitioner Family; Visit Provider Nurse Practitioner Family
DX: N76.0 Acute vaginitis (principal)
CPT/HCPCS: 80048; 87070; 87077; 87186; 87205; 96365; J1335

== ENCOUNTER 2024-09-21 14:25 | Outpatient (CLI) | payer MEDICARE, SELFPAY ==
--- OUTSIDE RECORDS SUMMARY | 2024-09-21 14:28 | XMS_ITS | Clinical Summary ---
Author Organization [employer] ([place], [place], [place], [place]) Address [address] [place] [address] Care Team Providers Care Territory Sales Consultant Name Role Phone Mari Carrero RESIDENTIAL CARPENTER Primary Care Provider Allergies Active Allergy Reactions [...] Due Influenza High Dose Preservative Free IM (LWQ382 ) 03/31/2020 Influenza Quad-qiv Non Pf 01/23/2018 [...] 08/09/2028 08/10/2023 Colorectal Cancer Screening 08/09/2028 Insurance [facility] MEDICARE ADVANTAGE Care Teams Territory Sales Consultant Relationship Specialty Start Date End Date Mari Carrero, RESIDENTIAL CARPENTER [address] [place] [address] PCP - General Nurse Practitioner 08/10/23
--- OUTSIDE RECORDS SUMMARY | 2024-09-21 14:29 | XMS_ITS | Encounter Summary ---
Author Organization [employer] ([place], [place], [place], [place]) Address [address] [place] [address] Care Team Providers Care Apprentice Embalmer Name Role Phone Mari Carrero APRN Primary Care Provider Encounter Details Date Type Department Care Team (Late st Contact Info) Description 11/05/2020 Transcribed Document [facility] [place] [address] ProviderRoselyn MD [address] [place] [address] Social History Tobacco Use Types [...] Source : Stated Height Entry Format : [place] Height, Feet : 5 ft(Converted to: 152 cm, 60 Inch) Height, Inches : 2 Inch(Converted to: 0 ft 2 Inch, 5.08 cm) Clinical Height : 157.48 cm Weight Source : Standing scale Weight Entry Format : [place] Clinical Dosing Weight : 85.91 kg Weight, Pounds : 189 lb Body Surface Area (BSA) : 1.87 m2 Body Mass Index : 34.6 kg/m2 (HI) [place] Body Weight : 50 kg Alisha Munoz [...] Alisha Munoz Rn - 11/05/2020 10:40 EDT [place] Suicide Severity Rating Scale (C-SSRS) CSSRS Past [...] Obtained From : Patient Primary Language : Jordanian Communication Barrier : None Pick Up Man Needed : No Alisha Munoz Rn - 11/05/2020 10:40 EDT Reagan Scale Reagan Sensory Perception : No impairment Reagan Moisture : Rarely moist Reagan Activity : Walks frequently Reagan Mobility : No limitation Reagan Nutrition : Excellent Reagna Friction and Shear : No apparent problem [...] on filedocumented in this encounter Care Teams Apprentice Embalmer Relationship Specialty Start Date End Date Mari Carrero, MARTIR [address] [place] [address] PCP - General Nurse Practitioner 08/10/23 documented as of this encounter
--- OUTSIDE RECORDS SUMMARY | 2024-09-21 14:29 | XMS_ITS | Referral Summary ---
Author Organization [employer] ([place], [place], [place], [place]) Address [address] [place] [address] Care Team Providers Care Customer Greeter Name Role Phone Mari Carrero STORE SALES MANAGER Primary Care Provider [phone] Allergies Active Allergy Reactions Criticality Noted Date [...] Due Influenza High Dose Preservative Free IM (CLP894 ) 03/31/2020 Influenza Quad-qiv Non Pf 01/23/2018 [...] Date Silviano rded Speak language other than Salvadorean at home Not on file 05/25/2023 Want [...] Plan of Treatment Not on file Insurance [facility] MEDICARE ADVANTAGE Care Teams Customer Greeter Relationship Specialty Start Date End Date Mari Carrero, STORE SALES MANAGER [address] [place] [address] PCP - General Nurse Practitioner 08/10/23
--- OUTSIDE RECORDS SUMMARY | 2024-09-21 14:29 | XMS_ITS | Encounter Summary ---
Author Organization [employer] ([place], [place], [place], [place]) Address [address] [place] [address] Care Team Providers Care Dehydrogenation Supervisor Name Role Phone Mari Carrero APRN Primary Care Provider Encounter Details Date Type Department Care Team (Late st Contact Info) Description 11/04/[address] [facility] [place] Family Medicine [address] [place] [address] ProviderRoselyn MD [address] [place] [phone] Social History Tobacco Use Types Packs/Day Years [...] to me by Dr. Main Paez in [place], [place], with a problem of an inflammatory [...] SOCIAL HISTORY: The patient is a one ooip-pyq-roq cigarette smoker. PHYSICAL EXAMINATION: GENERAL: Shows a [...] extension. ASSESSMENT: As above. PLAN: As above. /[id number] MD ANG Del AngelB/PER / LSBianca / MODL Electronically signed by aMrion [facility] [place] Conversion Mental Health Aides Teacher Cerner at 06/27/2022 8:21 PM CDT documented in this encounter Plan of Treatment Not on file documented as of this encounter Visit Diagnoses Not on filedocumented in this encounter Care Teams Dehydrogenation Supervisor Relationship Specialty Start Date End Date Mari Carrero, MR TEACHER [address] [address] PCP - General Nurse Practitioner 08/10/23 documented as of this encounter
--- OUTSIDE RECORDS SUMMARY | 2024-09-21 14:29 | XMS_ITS | Encounter Summary ---
Author Organization [employer] ([place], [place], [place], [place]) Address [address] [place] [address] Care Team Providers Care Gas Pump Attendant Name Role Phone Mari Carrero APRN Primary Care Provider Encounter Details Date Type Department Care Team (Late st Contact Info) Description 11/05/2020 Transcribed Document [facility] [place] [address] [place] [address] ProviderRoselyn MD [address] [place] [id number] Social History Tobacco Use Types Packs/Day Years [...] was drained by Dr. Main Paez in [facility], was purulent, but it has been [...] BLOOD LOSS: Approximately 15 to 20 mL. /[id number] Zane Redman MD LSB/AQ / LSB / MODL /[id number] documented in this encounter Plan of Treatment Not on file documented as of this encounter Visit Diagnoses Not on filedocumented in this encounter Care Teams Gas Pump Attendant Relationship Specialty Start Date End Date Mari Carrero APRN [address] [address] PCP - General Nurse Practitioner 08/10/23 documented as of this encounter
--- OUTSIDE RECORDS SUMMARY | 2024-09-21 14:29 | XMS_ITS | Encounter Summary ---
Author Organization [employer] ([place], [place], [place], [place]) Address [address] [place] [address] Care Team Providers Care Plant Maintenance Worker Name Role Phone Mari Carrero APRN Primary Care Provider [phone] Encounter Details Date Type Department Care Team (Late st Contact Info) Description 11/05/2020 Transcribed Document [facility] [place] [facility] [place] [address] ProviderRoselyn MD [address] [place] [address] Social History Tobacco Use Types Packs/Day [...] DOMINGUEZ /Sex: 1955 Female Med Rec #: [id number] Physician: DONY CERVANTES MD-OBG Financial #: [id number] Pt. Type: O Room/Bed: [facility] Admit/Disch: 11/05/20 09:46:00 - [place] [facility] [place] PreOp Case Times Entry 1 In Preop 11/05/20 09:55:00 Ready for Holding n/a Room Patient Ready for 11/05/20 10:30:00 Surgery Patient Out of Preop 11/05/20 12:20:00 Patient Out of n/a Holding Room Last Modified By: Katelyn Ga RN 11/05/20 17:26:05 [facility] PreOp Case Times Audit 11/05/20 17:26:05 Veterinary Medicine Teacher: SULMA Modifier: [id number] <+> 1 Patient Out of Preop Finalized By: Katelyn Ga, RN Document Signatures Signed By: Katelyn Ga RN 11/05/20 17:26 documented in this encounter Plan of Treatment Not on file documented as of this encounter Visit Diagnoses Not on filedocumented in this encounter Care Teams Plant Maintenance Worker Relationship Specialty Start Date End Date Mari Carrero, POSTDOCTORAL FELLOW [address] [place] [id number] PCP - General Nurse Practitioner 08/10/23 documented as of this encounter
--- OUTSIDE RECORDS SUMMARY | 2024-09-21 14:29 | XMS_ITS | Encounter Summary ---
Author Organization [facility] Address [address] [place] [address] Care Team Providers Care Linotype Machinist Apprentice Name Role Phone Reynold Khan MD Primary Care Provider [phone] Encounter Details Date Type Department Care Team (Late st Contact Info) Description 07/19/2022 Lab Requisition [facility] [address] [place] [address] Maxwell Neal MD [address] [place] [address] Encounter for general adult medical [...] Date of Assessment Author Initial/First Attempt Date [address] 07/19/2022 2:0 0 PM EDT Maliha Bond [...] ORDERABLES Final Result Performing Organization Address City/State/[facility] Co de Phone Number [facility] [address] [place] [address] documented in this encounter Visit Diagnoses Diagnosis Encounter for general adult medical examination without abnormal findings documented in this encounter Care Teams Linotype Machinist Apprentice Relationship Specialty Start Date End Date Reynold Khan MD [address] [place] [address] PCP - General 07/25/20 documented as of this encounter
--- OUTSIDE RECORDS SUMMARY | 2024-09-21 14:29 | XMS_ITS | Encounter Summary ---
Author Organization [employer] ([place], [place], [place], [place]) Address [address] [place] [address] Care Team Providers Care Oceanography Teacher Name Role Phone Mari Carrero APRN Primary Care Provider Encounter Details Date Type Department Care Team (Late st Contact Info) Description 11/05/2020 Transcribed Document [facility] [place] [facility] [place] [address] ProviderRoselyn MD [address] [place] [address] Social History Tobacco Use Types Packs/Day [...] ProviderMD - 11/05/2020 3:09 PM CDT [address] [address] ANN MARIE BUSH :1955 Visit [...] EDT Where: [address] [place] [address]- [facility] (1) Medications What How Much When Instructions Next Dose acetaminophen-hydrocodone ([place] 10 mg-325 mg oral tablet) 1 Tablet(s) [...] (fluticasone 50 mcg/ inh nasal spray) 2 [place](s) Nasal Every Day furosemide (furosemide 40 mg [...] these instructions at home: Medicines ??? Take iqit-len-ercqfve and prescription medicines only as told by [...] and water are not available, use hand estimator and drafter. ??? Change your dressing and packing as [...] provider. Document Revised: 01/29/2019 Document Reviewed: 01/29/2019 [employer] Patient Education ?? 2020 [employer] Outpatient Surgery, Adult, Care After These [...] and water are not available, use hand estimator and drafter. ? Change your dressing as told by [...] or a bad smell. Medicines ??? Take vuii-uyc-qnkrkpr and prescription medicines only as told by [...] provider. Document Revised: 05/29/2018 Document Reviewed: 06/20/2016 [employer] Patient Education ?? 2020 [employer]. General [...] activities are safe for you. ??? Take ycpw-fre-sozlgxn and prescription medicines only as told by [...] provider. Document Revised: 03/03/2018 Document Reviewed: 10/14/2017 [employer] Patient Education ?? 2020 [employer]. Emergency Awareness and Preventative Care STROKE is [...] Assistance with quitting is available by contacting 1-612-XWHU-NOW. This is a free resource providing counseling, [...] range between ( 1.0 and 7.0 ) [place] #: 0.23 K/uL -- Normal range between ( 0.24 and 0.82 ) [place] #: 0.03 K/uL -- Normal range between ( 0.04 and 0.54 ) [place] %: 3.2 % -- Normal range between [...] was given the opportunity to ask questions. Patient/Contact Center Agent Name: Patient/Contact Center Agent Signature: Relationship to Patient: Clinician/Hospital Contact Center Agent Signature: Date: documented in this encounter Plan of Treatment Not on file documented as of this encounter Visit Diagnoses Not on filedocumented in this encounter Care Teams Oceanography Teacher Relationship Specialty Start Date End Date Mari Carrero, DELIVERY LEAD [address] [place] [address] PCP - General Nurse Practitioner 08/10/23 documented as of this encounter
--- OUTSIDE RECORDS SUMMARY | 2024-09-21 14:29 | XMS_ITS | Encounter Summary ---
Author Organization [employer] ([place], [place], [place], [place]) Address [address] [place] [address] Care Team Providers Care Insurance Administrator Name Role Phone Mari Carrero APRN Primary Care Provider Encounter Details Date Type Department Care Team (Late st Contact Info) Description 11/05/2020 Transcribed Document [facility] [place] [facility] [place] [address] ProviderRoselyn MD [address] [place] [address] Social History Tobacco Use Types Packs/Day [...] BUSH /Sex: 1955 Female Med Rec #: [id number] Physician: DONY CERVANTES MD-OBG Financial #: [id number] Pt. Type: O Room/Bed: [facility] Admit/Disch: 11/05/20 09:46:00 - Institution: [facility] Main OR PostOp Case Times Entry 1 In PACU II 11/05/20 15:00:00 Ready for PACU II 11/05/20 15:30:00 Discharge Discharge from PACU 11/05/20 15:45:00 II Last Modified By: KATHLEEN BRAMBILA, RN 11/05/20 16:01:57 [facility] Main OR PostOp Case Times Audit 11/05/20 16:01:57 Rf Microwave Engineer: ELDERJM Modifier: [email or web address] <+> 1 Discharge from PACU II 11/05/20 15:47:34 Rf Microwave Engineer: ELDERJM Modifier: [email or web address] <+> 1 Ready for PACU II Discharge Finalized By: KATHLEEN BRAMBILA, RN Document Signatures Signed By: KATHLEEN BRAMBILA RN 11/05/20 16:02 documented in this encounter Plan of Treatment Not on file documented as of this encounter Visit Diagnoses Not on filedocumented in this encounter Care Teams Insurance Administrator Relationship Specialty Start Date End Date Mari Carrero, STUDENT ADVISOR [address] [address] PCP - General Nurse Practitioner 08/10/23 documented as of this encounter
--- OUTSIDE RECORDS SUMMARY | 2024-09-21 14:29 | XMS_ITS | Encounter Summary ---
Author Organization [employer] ([place], [place], [place], [place]) Address [address] [place] [address] Care Team Providers Care Roadway Designer Name Role Phone Mari Carrero APRN Primary Care Provider [phone] Encounter Details Date Type Department Care Team (Late st Contact Info) Description 11/05/2020 Transcribed Document [facility] [place] [facility] [place] [address] ProviderRoselyn MD [address] [place] [address] Social History Tobacco Use Types Packs/Day [...] BUSHE /Sex: 1955 Female Med Rec #: [id number] Physician: DONY CERVANTES MD-OBG Financial #: [id number] Pt. Type: O Room/Bed: [facility] Admit/Disch: 11/05/20 09:46:00 - Institution[place] [facility] [place] PACU Case Times Entry 1 In PACU I 11/05/20 13:56:00 Ready for PACU 11/05/20 14:55:00 Discharge Discharge from PACU 11/05/20 14:55:00 I Last Modified By: BLANCA KEYS RN 11/05/20 15:08:20 Finalized By: BLANCA KEYS RN Document Signatures Signed By: BLANCA KEYS RN 11/05/20 15:08 Electronically signed by Marion [facility] Conversion Injection Press Operator Cerner at 06/27/2022 8:34 PM CDT documented in this encounter Plan of Treatment Not on file documented as of this encounter Visit Diagnoses Not on filedocumented in this encounter Care Teams Roadway Designer Relationship Specialty Start Date End Date Mari Carrero, DRY SANDER [address] [place] [address] PCP - General Nurse Practitioner 08/10/23 documented as of this encounter
--- OUTSIDE RECORDS SUMMARY | 2024-09-21 14:29 | XMS_ITS | Encounter Summary ---
Author Organization [employer] ([place], [place], [place], [place]) Address [address] [place] [address] Care Team Providers Care Assistant Professor Of Geography Name Role Phone Mari Carrero APRN Primary Care Provider [phone] Encounter Details Date Type Department Care Team (Late st Contact Info) Description 11/05/2020 Transcribed Document [facility] [place] [facility] [place] [address] ProviderRoselyn MD [address] [place] [address] Social History Tobacco Use Types Packs/Day [...] these instructions at home: Medicines ??? Take gtzx-ydj-qkdicvb and prescription medicines only as told by [...] and water are not available, use hand pc technician. ??? Change your dressing and packing as [...] provider. Document Revised: 01/29/2019 Document Reviewed: 01/29/2019 [employer] Patient Education ? 2020 [employer]. Pharmacology [...] activities are safe for you. ??? Take ojoe-ncc-duxvyla and prescription medicines only as told by [...] provider. Document Revised: 03/03/2018 Document Reviewed: 10/14/2017 [employer] Patient Education ? 2020 [employer] Procedures Outpatient Surgery, Adult, Care After [...] and water are not available, use hand pc technician. ? Change your dressing as told by [...] or a bad smell. Medicines ??? Take iwzo-dcj-mgnkjdc and prescription medicines only as told by [...] provider. Document Revised: 05/29/2018 Document Reviewed: 06/20/2016 [employer] Patient Education ? 2020 [employer] documented in this encounter Plan of Treatment Not on file documented as of this encounter Visit Diagnoses Not on filedocumented in this encounter Care Teams Assistant Professor Of Geography Relationship Specialty Start Date End Date Mari Carrero APRN [address] [address] PCP - General Nurse Practitioner 08/10/23 documented as of this encounter
--- OUTSIDE RECORDS SUMMARY | 2024-09-21 14:29 | XMS_ITS | Encounter Summary ---
Author Organization [employer] ([place], [place], [place], [place]) Address [address] [place] [address] Care Team Providers Care Realtime Reporter Name Role Phone Mari Carrero APRN Primary Care Provider Encounter Details Date Type Department Care Team (Late st Contact Info) Description 11/05/2020 Transcribed Document [facility] [place] Family Medicine [facility], [facility] [place] [address] ProviderRoselyn MD [address] [place] [address] Social History Tobacco Use Types Packs/Day [...] DOMINGUEZ /Sex: 1955 Female Med Rec #: [id number] Physician: DONY CERVANTES MD-OBG Financial #: [id number] Pt. Type: O Room/Bed: [facility] Admit/Disch: 11/05/20 09:46:00 - [place] [facility] [place] Case Attendance Entry 1 Entry 2 Entry 3 Case Attendee DONY CERVANTES MD-OBG ANNI GOODRICH APRN, Brock, Deanna DENTURE LABORATORY TECHNICIAN-ANS Role Performed Surgeon/Proceduralist, DENTURE LABORATORY TECHNICIAN/Nurse Principal Systems Architect Scrub, First First Time In 11/05/20 12:28:00 [...] Christianson RN-PATIENT CARE BEDSIDE NON-EXEMPT Role Performed Research Coordinator, First Time In 11/05/20 12:28:00 Time Out 11/05/20 13:56:00 Procedure Mass Excision Genitalia Other Attendee Superficial Wound Closed By: Last Modified By: Brittani Christianson RN-PATIENT CARE BEDSIDE NON-EXEMPT 11/05/20 13:56:02 [facility] IntraOp Case Attendance Audit 11/05/20 13:56:02 Counter Manager: [id number] Modifier: [id number] <+> Time Out 1 <*> Procedure Mass Excision Genitalia 2 <+> Time Out 2 <*> Procedure Mass Excision Genitalia 3 <+> Time Out 3 <*> Procedure Mass Excision Genitalia 4 <+> Time Out 4 <*> Procedure Mass Excision Genitalia 11/05/20 13:10:37 Counter Manager: [id number] Modifier: [id number] <+> Time In 1 <*> Procedure Mass Excision Genitalia 2 <+> Time In 2 <*> Procedure Mass Excision Genitalia 3 <+> Time In 3 <*> Procedure Mass Excision Genitalia 4 <+> Time In 4 <*> Procedure Mass Excision Genitalia 11/05/20 12:53:31 Counter Manager: [id number] Modifier: [id number] <+> 2 Case Attendee <+> 2 Role [...] [facility] IntraOp Case Times Audit 11/05/20 13:55:49 Counter Manager: [id number] Modifier: [id number] <+> 1 Out Room Time <+> 1 [...] Patient Transport ANNI GOODRICH APRN, Accompanied by DENTURE LABORATORY TECHNICIAN-ANS, Brittani Christianson RN-PATIENT CARE BEDSIDE NON-EXEMPT Last [...] NON-EXEMPT 11/05/20 13:06:09 [facility] IntraOp General Case Special Education Aide 1 Case Information OR OR 04 S[facility] [...] 0.5% w/ epinephrine 1:200,000 30ml vial - [id number] Route of TO FIELD Administration Dose Dose [...] Intra Op Sign Out Audit 11/05/20 13:55:56 Counter Manager: [id number] Modifier: [id number] <+> 1 RN Sign Out Signature Date/Time [...] [facility] IntraOp Surgical Procedures Audit 11/05/20 13:56:01 Counter Manager: [id number] Modifier: [id number] <+> 1 Stop 11/05/20 13:09:58 Counter Manager: [id number] Modifier: [id number] <+> 1 Start [facility] IntraOp Temp Regulation Devices Entry 1 Temp Regulation Temperature Forced Air Warming Regulation Device device Temperature Upper body Regulation Site Temperature Device HIGH Setting Temperature ANNI GOODRICH APRN, Regulation Device DENTURE LABORATORY TECHNICIAN-ANS Applied by Last Modified By: Brittani Christianson [...] NON-EXEMPT 11/05/20 13:56 Electronically signed by [facility] Conversion Parts Sales Counterperson Cerner at 06/27/2022 8:33 PM CDT documented in this encounter Plan of Treatment Not on file documented as of this encounter Visit Diagnoses Not on filedocumented in this encounter Care Teams Realtime Reporter Relationship Specialty Start Date End Date Mari Carrero, STEAM TANK OPERATOR [address] [place] [address] PCP - General Nurse Practitioner 08/10/23 documented as of this encounter
--- OUTSIDE RECORDS SUMMARY | 2024-09-21 14:29 | XMS_ITS | Clinical Summary ---
Author Organization [facility] Address [address] [place] [address] Care Team Providers Care Musical Instrument Maker Name Role Phone Reynold Khan MD Primary Care Provider [phone] Allergies Active Allergy Reactions Criticality Noted Date [...] day. Active cholecalciferol (Vitamin D3) 1.25 MG (40449 UT) tablet Take 50,000 Units by mouth [...] No Healthcare Surrogate: Healthcare POA Care Teams Musical Instrument Maker Relationship Specialty Start Date End Date Reynold Khan MD [address] [place] [address] PCP - General 07/25/20
[2024-09-21 14:33] VITALS: BP 141/83; PULSE 74; RESP 20; TEMP 37.1; O2SAT 98
[2024-09-21] MEDS: ERTAPENEM SODIUM 1 GM in 0.9 % SODIUM CHLORIDE 50 ML IV (14:33)
[2024-09-21] MEDS: SODIUM CHLORIDE 0.9% 10ML FLUSH SYRINGE 10 ML IV (14:44)
[2024-09-21 15:22] VITALS: BP 138/88; PULSE 79; RESP 20; O2SAT 97
== END 2024-09-21 15:25 | disposition home or self-care (01) ==
LOC: INF 14:26
PROVIDERS: PCP Nurse Practitioner Family; Visit Provider Nurse Practitioner Family
DX: E11.9 Type 2 diabetes mellitus without complications (principal)
CPT/HCPCS: 96365; J1335

== ENCOUNTER 2024-09-22 14:36 | Outpatient (CLI) | payer MEDICARE, SELFPAY ==
--- OUTSIDE RECORDS SUMMARY | 2024-09-22 14:38 | XMS_ITS | Continuity of Care Document ---
Author Organization [facility]. If a dditional information is needed, contact Health Information Management at [phone] [address] [place] [address] Phone Care Team Providers Care Electrical Systems Designer Name Role Phone Unavailable Unavailable Unavailable Unavailable Unavailable Unavailable Unavailable Unavailable Unavailable Unavailable Unavailable Problems Bradycardia Onset:16-Jul-2022 Yovani Helms MD Status:Acute Acute hepatic failure due to drugs Onset:16-Jul-2022 Yovani Helms MD Status:Acute Suicide attempt Onset:16-Jul-2022 Yovani Helms MD Status:Acute Acetaminophen overdose Onset:16-Jul-2022 Yovani Helms MD Status:Acute Hypertensive disorder [...]
--- OUTSIDE RECORDS SUMMARY | 2024-09-22 14:38 | XMS_ITS | Clinical Summary ---
Author Organization [employer] ([place], [place], [place], [place]) Address [address] [place] [address] Care Team Providers Care Electric Trucker Name Role Phone Mari Carrero COMPLAINT ADJUSTER Primary Care Provider [phone] Allergies Active Allergy Reactions Criticality Noted Date [...] Due Influenza High Dose Preservative Free IM ([id number] ) 03/31/2020 Influenza Quad-qiv Non Pf 01/23/2018 [...] Date Silviano rded Speak language other than Peruvian at home Not on file 05/25/2023 Want [...] 08/09/2028 08/10/2023 Colorectal Cancer Screening 08/09/2028 Insurance [facility] MEDIC[facility] Care Teams Electric Trucker Relationship Specialty Start Date End Date Mari Carrero, COMPLAINT ADJUSTER [address] [place] [address] PCP - General Nurse Practitioner 08/10/23
--- OUTSIDE RECORDS SUMMARY | 2024-09-22 14:38 | XMS_ITS | Encounter Summary ---
Author Organization [facility] Address [address] [place] [address] Care Team Providers Care Form Setter Name Role Phone Reynold Khan MD Primary Care Provider [phone]- [phone] Encounter Details Date Type Department Care Team (Late st Contact Info) Description 07/19/2022 Lab Requisition [facility] [address] [place] [address] Maxwell Neal MD [address] [place] [address] Encounter for general adult medical [...] Date of Assessment Author Initial/First Attempt Date [id number] 07/19/2022 2:0 0 PM EDT Maliha Bond [...] AM EDT [facility]ALTHCARE [facility] Swab (Nares and Mraia R Rectal) 07/19/2022 11:27 AM EDT 07/19/2022 5:50 PM EDT Maxwell De Jesus MD LAB MICROBIOLOGY - GENERAL ORDERABLES Final Result Performing Organization Address City/State/[facility] Co de Phone Number HEALTHCARE LAB [address] [place] [address] documented in this encounter Visit Diagnoses Diagnosis Encounter for general adult medical examination without abnormal findings documented in this encounter Care Teams Form Setter Relationship Specialty Start Date End Date Reynold Khan MD [address] [place] [address] PCP - General 07/25/20 documented as of this encounter
--- OUTSIDE RECORDS SUMMARY | 2024-09-22 14:39 | XMS_ITS | Encounter Summary ---
Author Organization [employer] ([place], [place], [place], [place]) Address [address] [place] [address] Care Team Providers Care Senior Instructional Designer Name Role Phone Mari Carrero APRN Primary Care Provider Encounter Details Date Type Department Care Team (Late st Contact Info) Description 11/05/2020 Transcribed Document [facility] [place] Family Medicine [facility] [address] ProviderRoselyn MD [address] [place] [address] Social History Tobacco Use Types Packs/Day [...] BUSH /Sex: 1955 Female Med Rec #: [id number] Physician: DONY CERVANTES MD-OBG Financial #: [id number] Pt. Type: O Room/Bed: [facility] Admit/Disch: 11/05/20 09:46:00 - Institution: [facility] PostOp Case Times Entry 1 In PACU II 11/05/20 15:00:00 Ready for PACU II 11/05/20 15:30:00 Discharge Discharge from PACU 11/05/20 15:45:00 II Last Modified By: KATHLEEN BRAMBILA, RN 11/05/20 16:01:57 [facility] Main OR PostOp Case Times Audit 11/05/20 16:01:57 Client Technical Professional: [email or web address] Modifier: [email or web address] <+> 1 Discharge from PACU II 11/05/20 15:47:34 Client Technical Professional: [email or web address] Modifier: [email or web address] <+> 1 Ready for PACU II Discharge Finalized By: KATHLEEN BRAMBILA, RN Document Signatures Signed By: KATHLEEN BRAMBILA RN 11/05/20 16:02 documented in this encounter Plan of Treatment Not on file documented as of this encounter Visit Diagnoses Not on filedocumented in this encounter Care Teams Senior Instructional Designer Relationship Specialty Start Date End Date Mari Carrero, GIFT WRAPPER [address] [address] PCP - General Nurse Practitioner 08/10/23 documented as of this encounter
--- OUTSIDE RECORDS SUMMARY | 2024-09-22 14:39 | XMS_ITS | Encounter Summary ---
Author Organization [employer] ([place], [place], [place], [place]) Address [address] [place] [address] Care Team Providers Care General Ledger Bookkeeper Name Role Phone Mari Carrero APRN Primary Care Provider Encounter Details Date Type Department Care Team (Late st Contact Info) Description 11/05/[address] [facility] [place] Family Medicine [address] [place] [address] ProviderRoselyn MD [address] [place] [id number] Social History Tobacco Use Types Packs/Day Years [...] was drained by Dr. Main Paez in [facility], was purulent, but it has been present [...] BLOOD LOSS: Approximately 15 to 20 mL. /[id number] Zane Redman MD LSB/AQ / LSB / MODL /[id number] documented in this encounter Plan of Treatment Not on file documented as of this encounter Visit Diagnoses Not on filedocumented in this encounter Care Teams General Ledger Bookkeeper Relationship Specialty Start Date End Date Mari Carrero APRN [address] [address] PCP - General Nurse Practitioner 08/10/23 documented as of this encounter
--- OUTSIDE RECORDS SUMMARY | 2024-09-22 14:39 | XMS_ITS | Encounter Summary ---
Author Organization [employer] ([place], [place], [place], [place]) Address [address] [place] [address] Care Team Providers Care Traffic Rate Clerk Name Role Phone Mari Carrero APRN Primary Care Provider Encounter Details Date Type Department Care Team (Late st Contact Info) Description 11/05/2020 Transcribed Document [facility] [place] [facility] [place] [address] ProviderRoselyn MD [address] [place] [address] Social History Tobacco Use Types [...] Source : Stated Height Entry Format : [place] Height, Feet : 5 ft(Converted to: 152 cm, 60 Inch) Height, Inches : 2 Inch(Converted to: 0 ft 2 Inch, 5.08 cm) Clinical Height : 157.48 cm Weight Source : Standing scale Weight Entry Format : [place] Clinical Dosing Weight : 85.91 kg Weight, Pounds : 189 lb Body Surface Area (BSA) : 1.87 m2 Body Mass Index : 34.6 kg/m2 ([place]) [place] Body Weight : 50 kg Alisha Munoz [...] Alisha Munoz Rn - 11/05/2020 10:40 EDT [place] Suicide Severity Rating Scale (C-SSRS) CSSRS Past [...] Obtained From : Patient Primary Language : Mauritian Communication Barrier : None Circuit Court Clerk Needed : No Alisha Munoz Rn - [...] on filedocumented in this encounter Care Teams Traffic Rate Clerk Relationship Specialty Start Date End Date Mari Carrero, MARTIR [address] [place] [address] PCP - General Nurse Practitioner 08/10/23 documented as of this encounter
--- OUTSIDE RECORDS SUMMARY | 2024-09-22 14:39 | XMS_ITS | Referral Summary ---
Author Organization [employer] ([place], [place], [place], [place]) Address [address] [place] [address] Care Team Providers Care Project Internship Name Role Phone Mari Carrero PNEUMATIC TESTER Primary Care Provider Allergies Active Allergy Reactions [...] Due Influenza High Dose Preservative Free IM ([id number] ) 03/31/2020 Influenza Quad-qiv Non Pf 01/23/2018 [...] Date Silviano rded Speak language other than Bruneian at home Not on file 05/25/2023 Want [...] Plan of Treatment Not on file Insurance [facility] MEDICARE ADVANTAGE Care Teams Project Internship Relationship Specialty Start Date End Date Mari Carrero, PNEUMATIC TESTER [address] [place] [address] PCP - General Nurse Practitioner 08/10/23
--- OUTSIDE RECORDS SUMMARY | 2024-09-22 14:39 | XMS_ITS | Encounter Summary ---
Author Organization [employer] ([place], [place], [place], [place]) Address [address] [place] [address] Care Team Providers Care Oracle Wms Consultant Name Role Phone Mari Carrero APRN Primary Care Provider Encounter Details Date Type Department Care Team (Late st Contact Info) Description 11/05/2020 Transcribed Document [facility] [place] [facility] [place] [address] ProviderRoselyn MD [address] [place] [address] Social History Tobacco Use Types Packs/Day [...] Roselyn ProviderMD - 11/05/2020 3:09 PM CDT [address] [address] ANN MARIE BUSH :1955 Visit [...] EDT Where: [address] [place] [address]- [facility] (1) Medications What How Much When Instructions Next Dose acetaminophen-hydrocodone ([place] 10 mg-325 mg oral tablet) 1 Tablet(s) [...] (fluticasone 50 mcg/ inh nasal spray) 2 [place](s) Nasal Every Day furosemide (furosemide 40 mg [...] these instructions at home: Medicines ??? Take qovt-geh-wjbalen and prescription medicines only as told by [...] and water are not available, use hand director of head start. ??? Change your dressing and packing as [...] provider. Document Revised: 01/29/2019 Document Reviewed: 01/29/2019 ElseSurgi[employer] Patient Education ?? 2020 [employer] Inc. Outpatient Surgery, Adult, Care After These [...] and water are not available, use hand director of head start. ? Change your dressing as told by [...] or a bad smell. Medicines ??? Take kdtc-mdj-uynmkar and prescription medicines only as told by [...] provider. Document Revised: 05/29/2018 Document Reviewed: 06/20/2016 ElseSurgiLight Patient Education ?? 2020 [employer] Inc. General [...] activities are safe for you. ??? Take sish-olr-ymqpfkt and prescription medicines only as told by [...] provider. Document Revised: 03/03/2018 Document Reviewed: 10/14/2017 [employer] Patient Education ?? 2020 [employer]. Emergency Awareness and Preventative Care STROKE is [...] Assistance with quitting is available by contacting 9-222-RUDA-NOW. This is a free resource providing counseling, [...] range between ( 1.0 and 7.0 ) [place] #: 0.23 K/uL -- Normal range between ( 0.24 and 0.82 ) [place]os #: 0.03 K/uL -- Normal range between ( 0.04 and 0.54 ) [place] %: 3.2 % -- Normal range between [...] CR Chest 2 Vws Patient Name:ANN MARIE UBSH I have received this information and was given the opportunity to ask questions. Patient/Farmworker Poultry Name: Patient/Farmworker Poultry Signature: Relationship to Patient: Clinician/Hospital Farmworker Poultry Signature: Date: documented in this encounter Plan of Treatment Not on file documented as of this encounter Visit Diagnoses Not on filedocumented in this encounter Care Teams Oracle Wms Consultant Relationship Specialty Start Date End Date Mari Carrero, SNAP SHEARER [address] [place] [address] PCP - General Nurse Practitioner 08/10/23 documented as of this encounter
--- OUTSIDE RECORDS SUMMARY | 2024-09-22 14:39 | XMS_ITS | Encounter Summary ---
Author Organization [employer] ([place], [place], [place], [place]) Address [address] [place] [address] Care Team Providers Care Drip Box Tender Name Role Phone Mari Carrero APRN Primary Care Provider [phone] Encounter Details Date Type Department Care Team (Late st Contact Info) Description 11/05/2020 Transcribed Document [facility] [place] [facility] [place] [address] ProviderRoselyn MD [address] [place] [address] Social History Tobacco Use Types Packs/Day [...] DOMINGUEZ /Sex: 1955 Female Med Rec #: [id number] Physician: DONY CERVANTES MD-OBG Financial #: [id number] Pt. Type: O Room/Bed: [facility] Admit/Disch: 11/05/20 09:46:00 - Institution: [facility] [place] PreOp Case Times Entry 1 In Preop 11/05/20 09:55:00 Ready for Holding n/a Room Patient Ready for 11/05/20 10:30:00 Surgery Patient Out of Preop 11/05/20 12:20:00 Patient Out of n/a Holding Room Last Modified By: Katelyn aG RN 11/05/20 17:26:05 [facility] PreOp Case Times Audit 11/05/20 17:26:05 Head Buyer Tobacco: S[place]MA Modifier: [id number] <+> 1 Patient Out of Preop Finalized By: Katelyn Ga, RN Document Signatures Signed By: Katelyn Ga RN 11/05/20 17:26 documented in this encounter Plan of Treatment Not on file documented as of this encounter Visit Diagnoses Not on filedocumented in this encounter Care Teams Drip Box Tender Relationship Specialty Start Date End Date Mari Carrero, DISTRIBUTION TRANSFORMER ASSEMBLER [address] [place] [id number] PCP - General Nurse Practitioner 08/10/23 documented as of this encounter
--- OUTSIDE RECORDS SUMMARY | 2024-09-22 14:39 | XMS_ITS | Clinical Summary ---
Author Organization [facility] Address [address] [place] [address] Care Team Providers Care Personnel Representative Name Role Phone Reynold Khan MD Primary Care Provider [phone] Allergies Active Allergy Reactions Criticality Noted Date [...] day. Active cholecalciferol (Vitamin D3) 1.25 MG (31663 UT) tablet Take 50,000 Units by mouth [...] No Healthcare Surrogate: Healthcare POA Care Teams Personnel Representative Relationship Specialty Start Date End Date Reynold Khan MD [address] [place] [address] PCP - General 07/25/20
--- OUTSIDE RECORDS SUMMARY | 2024-09-22 14:39 | XMS_ITS | Encounter Summary ---
Author Organization [employer] ([place], [place], [place], [place]) Address [address] [place] [address] Care Team Providers Care Digital Commentator Name Role Phone Mari Carrero APRN Primary Care Provider Encounter Details Date Type Department Care Team (Late st Contact Info) Description 11/05/2020 Transcribed Document [facility] [place] [address] ProviderRoselyn MD [address] [place] [address] Social History Tobacco Use Types Packs/Day [...] DOMINGUEZ /Sex: 1955 Female Med Rec #: [id number] Physician: DONY CERVANTES MD-OBG Financial #: [id number] Pt. Type: O Room/Bed: [facility] Admit/Disch: 11/05/20 09:46:00 - Institution: [facility] [place] IntraOp Case Attendance Entry 1 Entry 2 Entry 3 Case Attendee DONY CERVANTES MD-OBG ANNI GOODRICH APRN, Brock, Deanna SUPERVISOR DRYING-ANS Role Performed Surgeon/Proceduralist, SUPERVISOR DRYING/Nurse Yard Assistant Scrub, First First Time In 11/05/20 12:28:00 [...] Christianson RN-PATIENT CARE BEDSIDE NON-EXEMPT Role Performed Freight Solicitor, First Time In 11/05/20 12:28:00 Time Out 11/05/20 13:56:00 Procedure Mass Excision Genitalia Other Attendee Superficial Wound Closed By: Last Modified By: Brittani Christianson RN-PATIENT CARE BEDSIDE NON-EXEMPT 11/05/20 13:56:02 [facility] IntraOp Case Attendance Audit 11/05/20 13:56:02 Truck Driver: [id number] Modifier: [id number] <+> Time Out 1 <*> Procedure Mass Excision Genitalia 2 <+> Time Out 2 <*> Procedure Mass Excision Genitalia 3 <+> Time Out 3 <*> Procedure Mass Excision Genitalia 4 <+> Time Out 4 <*> Procedure Mass Excision Genitalia 11/05/20 13:10:37 Truck Driver: [id number] Modifier: [id number] <+> Time In 1 <*> Procedure Mass Excision Genitalia 2 <+> Time In 2 <*> Procedure Mass Excision Genitalia 3 <+> Time In 3 <*> Procedure Mass Excision Genitalia 4 <+> Time In 4 <*> Procedure Mass Excision Genitalia 11/05/20 12:53:31 Truck Driver: [id number] Modifier: [id number] <+> 2 Case Attendee <+> 2 Role [...] [facility] IntraOp Case Times Audit 11/05/20 13:55:49 Truck Driver: [id number] Modifier: [id number] <+> 1 Out Room Time <+> 1 [...] Patient Transport ANNI GOODRICH APRN, Accompanied by SUPERVISOR DRYING-ANS, Brittani Christianson RN-PATIENT CARE BEDSIDE NON-EXEMPT Last [...] NON-EXEMPT 11/05/20 13:06:09 [facility] IntraOp General Case Zoogler 1 Case Information OR OR 04 [facility] [...] 0.5% w/ epinephrine 1:200,000 30ml vial - [id number] Route of TO FIELD Administration Dose Dose [...] Intra Op Sign Out Audit 11/05/20 13:55:56 Truck Driver: [id number] Modifier: [id number] <+> 1 RN Sign Out Signature Date/Time [...] [facility] IntraOp Surgical Procedures Audit 11/05/20 13:56:01 Truck Driver: [id number] Modifier: [id number] <+> 1 Stop 11/05/20 13:09:58 Truck Driver: [id number] Modifier: [id number] <+> 1 Start [facility] IntraOp Temp Regulation Devices Entry 1 Temp Regulation Temperature Forced Air Warming Regulation Device device Temperature Upper body Regulation Site Temperature Device HIGH Setting Temperature ANNI GOODRICH APRN, Regulation Device SUPERVISOR DRYING-ANS Applied by Last Modified By: Brittani Christianson [...] NON-EXEMPT 11/05/20 13:56 Electronically signed by Marion [facility] Conversion Hourly Associate Cerner at 06/27/2022 8:33 PM CDT documented in this encounter Plan of Treatment Not on file documented as of this encounter Visit Diagnoses Not on filedocumented in this encounter Care Teams Digital Commentator Relationship Specialty Start Date End Date Mari Carrero, TABULAR TYPIST [address] [place] [address] PCP - General Nurse Practitioner 08/10/23 documented as of this encounter
--- OUTSIDE RECORDS SUMMARY | 2024-09-22 14:39 | XMS_ITS | Encounter Summary ---
Author Organization [email or web address] ([place], [place], [place], [place]) Address [address] [place] [address] Care Team Providers Care Forestry Faculty Member Name Role Phone Mari Carrero APRN Primary Care Provider Encounter Details Date Type Department Care Team (Late st Contact Info) Description 11/04/[address] [facility] [place] Family Medicine [address] [place] [address] ProviderRoselyn MD [address] [place] [id number] Social History Tobacco Use Types Packs/Day Years [...] to me by Dr. Main Paez in [place], [place], with a problem of an inflammatory [...] SOCIAL HISTORY: The patient is a one bues-jru-qod cigarette smoker. PHYSICAL EXAMINATION: GENERAL: Shows a [...] extension. ASSESSMENT: As above. PLAN: As above. /[id number] MD ANG Del AngelB/PER / LSBianca / MODL Electronically signed by Marion [facility] Conversion Lap Winder Cerner at 06/27/2022 8:21 PM CDT documented in this encounter Plan of Treatment Not on file documented as of this encounter Visit Diagnoses Not on filedocumented in this encounter Care Teams Forestry Faculty Member Relationship Specialty Start Date End Date Mari Carrero, COLLAR TACKER [address] [address] PCP - General Nurse Practitioner 08/10/23 documented as of this encounter
--- OUTSIDE RECORDS SUMMARY | 2024-09-22 14:39 | XMS_ITS | Encounter Summary ---
Author Organization [employer] ([place], [place], [place], [place]) Address [address] [place] [address] Care Team Providers Care Police District Switchboard Operator Name Role Phone Mari Carrero APRN Primary Care Provider [phone] Encounter Details Date Type Department Care Team (Late st Contact Info) Description 11/05/2020 Transcribed Document [facility] [place] [facility] [place] [address] ProviderRoselyn MD [address] [place] [address] Social History Tobacco Use Types Packs/Day [...] these instructions at home: Medicines ??? Take uvuy-rex-mhldpmf and prescription medicines only as told by [...] and water are not available, use hand development trainer. ??? Change your dressing and packing as [...] provider. Document Revised: 01/29/2019 Document Reviewed: 01/29/2019 The [employer] Patient Education ? 2020 Elsevier Inc. Pharmacology [...] activities are safe for you. ??? Take ybgk-lfk-tnuvfff and prescription medicines only as told by [...] provider. Document Revised: 03/03/2018 Document Reviewed: 10/14/2017 [employer] Patient Education ? 2020 [employer] Inc[employer] Procedures Outpatient Surgery, Adult, Care After [...] and water are not available, use hand development trainer. ? Change your dressing as told by [...] or a bad smell. Medicines ??? Take sukr-zmx-vcjmcsd and prescription medicines only as told by [...] provider. Document Revised: 05/29/2018 Document Reviewed: 06/20/2016 [employer] Patient Education ? 2020 [employer] documented in this encounter Plan of Treatment Not on file documented as of this encounter Visit Diagnoses Not on filedocumented in this encounter Care Teams Police District Switchboard Operator Relationship Specialty Start Date End Date Mari Carrero APRN [address] [address] PCP - General Nurse Practitioner 08/10/23 documented as of this encounter
--- OUTSIDE RECORDS SUMMARY | 2024-09-22 14:39 | XMS_ITS | Encounter Summary ---
Author Organization [employer] ([place], [place], [place], [place]) Address [address] [place] [address] Care Team Providers Care Cassandra Consultant Name Role Phone Mari Carrero APRN Primary Care Provider Encounter Details Date Type Department Care Team (Late st Contact Info) Description 11/05/2020 Transcribed Document [facility] [place] [facility] [place] [address] ProviderRoselyn MD [address] [place] [address] Social History Tobacco Use Types Packs/Day [...] BUSHE /Sex: 1955 Female Med Rec #: [id number] Physician: DONY CERVANTES MD-OBG Financial #: [id number] Pt. Type: O Room/Bed: [facility] Admit/Disch: 11/05/20 09:46:00 - Institution: [facility] [place] Main [place] PACU Case Times Entry 1 In PACU I 11/05/20 13:56:00 Ready for PACU 11/05/20 14:55:00 Discharge Discharge from PACU 11/05/20 14:55:00 I Last Modified By: BLANCA KEYS RN 11/05/20 15:08:20 Finalized By: BLANCA KEYS RN Document Signatures Signed By: BLANCA KEYS RN 11/05/20 15:08 Electronically signed by [facility] Conversion Rn Documentation Specialist Cerner at 06/27/2022 8:34 PM CDT documented in this encounter Plan of Treatment Not on file documented as of this encounter Visit Diagnoses Not on filedocumented in this encounter Care Teams Cassandra Consultant Relationship Specialty Start Date End Date Mari Carrero, TOP SPOTTER [address] [place] [address] PCP - General Nurse Practitioner 08/10/23 documented as of this encounter
[2024-09-22] MEDS: ERTAPENEM SODIUM 1 GM in 0.9 % SODIUM CHLORIDE 50 ML IV (15:03)
== END 2024-09-22 23:59 | disposition home or self-care (01) ==
LOC: INF 14:37
PROVIDERS: PCP Nurse Practitioner Family; Visit Provider Nurse Practitioner Family
DX: E11.9 Type 2 diabetes mellitus without complications (principal)
CPT/HCPCS: 96365; J1335

== ENCOUNTER 2024-09-23 14:26 | Outpatient (CLI) | payer MEDICARE, SELFPAY ==
--- OUTSIDE RECORDS SUMMARY | 2024-09-23 14:28 | XMS_ITS | Referral Summary ---
Author Organization [employer] ([place], [place], [place], [place]) Address [address] [place] [address] Care Team Providers Care Membership Director Name Role Phone Mari Carrero TICKET WRITER Primary Care Provider Allergies Active Allergy Reactions [...] Due Influenza High Dose Preservative Free IM (OGR704 ) 03/31/2020 Influenza Quad-qiv Non Pf 01/23/2018 [...] Date Silviano rded Speak language other than Sudanese at home Not on file 05/25/2023 Want [...] Plan of Treatment Not on file Insurance [facility] MEDICARE ADVANTAGE Care Teams Membership Director Relationship Specialty Start Date End Date Mari Carrero, TICKET WRITER [address] [place] [address] PCP - General Nurse Practitioner 08/10/23
--- OUTSIDE RECORDS SUMMARY | 2024-09-23 14:28 | XMS_ITS | Encounter Summary ---
Author Organization [employer] ([place], [place], [place], [place]) Address [address] [place] [address] Care Team Providers Care Watch Crystal Edge Grinder Name Role Phone Mari Carrero APRN Primary Care Provider [phone] Encounter Details Date Type Department Care Team (Late st Contact Info) Description 11/05/2020 Transcribed Document [facility] [place] [facility] [place] [address] ProviderRoselyn MD [address] [place] [address] Social History Tobacco Use Types Packs/Day [...] these instructions at home: Medicines ??? Take fxbh-sjp-cwgqxaq and prescription medicines only as told by [...] and water are not available, use hand physician assistant primary care. ??? Change your dressing and packing as [...] provider. Document Revised: 01/29/2019 Document Reviewed: 01/29/2019 [employer] Patient Education ? 2020 Elsevier Inc. Pharmacology [...] activities are safe for you. ??? Take itng-ymb-slsmxba and prescription medicines only as told by [...] provider. Document Revised: 03/03/2018 Document Reviewed: 10/14/2017 [employer] Patient Education ? 2020 [employer] Inc. Procedures Outpatient Surgery, Adult, Care After [...] and water are not available, use hand physician assistant primary care. ? Change your dressing as told by [...] or a bad smell. Medicines ??? Take xaho-jhz-vfipcgm and prescription medicines only as told by [...] provider. Document Revised: 05/29/2018 Document Reviewed: 06/20/2016 [employer] Patient Education ? 2020 [employer]. documented in this encounter Plan of Treatment Not on file documented as of this encounter Visit Diagnoses Not on filedocumented in this encounter Care Teams Watch Crystal Edge Grinder Relationship Specialty Start Date End Date Mari Carrero APRN [address] [address] PCP - General Nurse Practitioner 08/10/23 documented as of this encounter
--- OUTSIDE RECORDS SUMMARY | 2024-09-23 14:28 | XMS_ITS | Encounter Summary ---
Author Organization [facility] Address [address] [place] [address] Care Team Providers Care Automotive Sales Executive Name Role Phone Reynold Khan MD Primary Care Provider [phone] Encounter Details Date Type Department Care Team (Late st Contact Info) Description 07/19/2022 Lab Requisition [facility] [address] [place] [address] Maxwell Neal MD [address] [place] [address] Encounter for general adult medical [...] Date of Assessment Author Initial/First Attempt Date [id number] 07/19/2022 2:0 0 PM EDT Maliha Bond [...] GENERAL ORDERABLES Final Result Performing Organization Address City/State/[facility] Co de Phone Number [facility]ALTHCARE [facility] [address] [place] [address] documented in this encounter Visit Diagnoses Diagnosis Encounter for general adult medical examination without abnormal findings documented in this encounter Care Teams Automotive Sales Executive Relationship Specialty Start Date End Date Reynold Khan MD [address] [place] [address] PCP - General 07/25/20 documented as of this encounter
--- OUTSIDE RECORDS SUMMARY | 2024-09-23 14:28 | XMS_ITS | Encounter Summary ---
Author Organization [employer] ([place], [place], [place], [place]) Address [address] [place] [address] Care Team Providers Care Automatic Corn Grinder Operator Name Role Phone Mari Carrero APRN Primary Care Provider [phone] Encounter Details Date Type Department Care Team (Late st Contact Info) Description 11/05/2020 Transcribed Document [facility] [place] [address] [place] [address] ProviderRoselyn MD [address] [place] [phone] Social History Tobacco Use Types Packs/Day Years Used Date Smoking Tobacco: Never Assessed Comments Unknown Sex and Gender Information Value Date Recorded Sex Assigned at Not on file Legal Sex Female 6:09 PM CDT Gender Identity Not on file Sexual Orientation Not on file documented as of this encounter Miscellaneous Notes * Cerner Conversion Note - Roselyn Bcoanegra MD - 11/05/2020 4:52 PM CDT DATE [...] by Dr. Main Paez in [facility], was purulent, but it has been present [...] BLOOD LOSS: Approximately 15 to 20 mL. /[id number] Zane Redman MD LSB/AQ / LSB / MODL /[id number] documented in this encounter Plan of Treatment Not on file documented as of this encounter Visit Diagnoses Not on filedocumented in this encounter Care Teams Automatic Corn Grinder Operator Relationship Specialty Start Date End Date Mari Carrero APRN [address] [address] PCP - General Nurse Practitioner 08/10/23 documented as of this encounter
--- OUTSIDE RECORDS SUMMARY | 2024-09-23 14:28 | XMS_ITS | Encounter Summary ---
Author Organization [email or web address] ([place], [place], [place], [place]) Address [address] [place] [address] Care Team Providers Care Millinery Department Manager Name Role Phone Mari Carrero APRN Primary Care Provider Encounter Details Date Type Department Care Team (Late st Contact Info) Description 11/05/2020 Transcribed Document [facility] [place] [facility] [place] [address] ProviderRoselyn MD [address] [place] [address] Social History Tobacco Use Types [...] Source : Stated Height Entry Format : [place]don Height, Feet : 5 ft(Converted to: 152 cm, 60 Inch) Height, Inches : 2 Inch(Converted to: 0 ft 2 Inch, 5.08 cm) Clinical Height : 157.48 cm Weight Source : Standing scale Weight Entry Format : Odon Clinical Dosing Weight : 85.91 kg Weight, Pounds : 189 lb Body Surface Area (BSA) : 1.87 m2 Body Mass Index : 34.6 kg/m2 ([place]) [place] Body Weight : 50 kg Alisha Munoz [...] Alisha Munoz Rn - 11/05/2020 10:40 EDT [place] Suicide Severity Rating Scale (C-SSRS) CSSRS Past [...] Obtained From : Patient Primary Language : Turkmen Communication Barrier : None Uncrater Needed : No Alisha Munoz Rn - [...] on filedocumented in this encounter Care Teams Millinery Department Manager Relationship Specialty Start Date End Date Mari Carrero, MARTIR [address] [place] [address] PCP - General Nurse Practitioner 08/10/23 documented as of this encounter
--- OUTSIDE RECORDS SUMMARY | 2024-09-23 14:28 | XMS_ITS | Clinical Summary ---
Author Organization [facility] Address [address] [place] [address] Care Team Providers Care Sorority Supervisor Name Role Phone Reynold Khan MD Primary Care Provider [phone] Allergies Active Allergy Reactions Criticality Noted Date [...] day. Active cholecalciferol (Vitamin D3) 1.25 MG (90218 UT) tablet Take 50,000 Units by mouth [...] No Healthcare Surrogate: Healthcare POA Care Teams Sorority Supervisor Relationship Specialty Start Date End Date Reynold Khan MD [address] [place] [address] PCP - General 07/25/20
--- OUTSIDE RECORDS SUMMARY | 2024-09-23 14:28 | XMS_ITS | Encounter Summary ---
Author Organization [employer] ([place], [place], [place], [place]) Address [address] [place] [address] Care Team Providers Care Lens Finisher Name Role Phone Mari Carrero APRN Primary Care Provider [phone] Encounter Details Date Type Department Care Team (Late st Contact Info) Description 11/05/2020 Transcribed Document [facility] [place] [facility] [place] [address] ProviderRoselyn MD [address] [place] [address] Social History Tobacco Use Types Packs/Day [...] BUSH /Sex: 1955 Female Med Rec #: [id number] Physician: DONY CERVANTES MD-OBG Financial #: [id number] Pt. Type: O Room/Bed: [facility] Admit/Disch: 11/05/20 09:46:00 - Institution: [facility] Main OR PostOp Case Times Entry 1 In PACU II 11/05/20 15:00:00 Ready for PACU II 11/05/20 15:30:00 Discharge Discharge from PACU 11/05/20 15:45:00 II Last Modified By: KATHLEEN BRAMBILA, RN 11/05/20 16:01:57 [facility] Main OR PostOp Case Times Audit 11/05/20 16:01:57 Science Center Display Builder: [email or web address] Modifier: [email or web address] <+> 1 Discharge from PACU II 11/05/20 15:47:34 Science Center Display Builder: [email or web address] Modifier: [email or web address] <+> 1 Ready for PACU II Discharge Finalized By: KATHLEEN BRAMBILA, RN Document Signatures Signed By: KATHLEEN BRAMBILA RN 11/05/20 16:02 Electronically signed by Yahir Schultz Conversion Hybrid Powertrain Development Engineer Cerner at 06/27/2022 8:31 PM CDT documented in this encounter Plan of Treatment Not on file documented as of this encounter Visit Diagnoses Not on filedocumented in this encounter Care Teams Lens Finisher Relationship Specialty Start Date End Date Mari Carrero, SALES SUPPORT TECHNICIAN [address] [address] PCP - General Nurse Practitioner 08/10/23 documented as of this encounter
--- OUTSIDE RECORDS SUMMARY | 2024-09-23 14:28 | XMS_ITS | Encounter Summary ---
Author Organization [employer] ([place], [place], [place], [place]) Address [address] [place] [address] Care Team Providers Care Rivet Sticker Name Role Phone aMri Carrero APRN Primary Care Provider Encounter Details Date Type Department Care Team (Late st Contact Info) Description 11/04/2020 Transcribed Document [facility] [place] Family Medicine [address] [place] [address] ProviderRoselyn MD [address] [place] [address] Social History Tobacco Use Types Packs/Day Years Used Date Smoking Tobacco: Never Assessed Comments Unknown Sex and Gender Information Value Date Recorded Sex Assigned at Not on file Legal Sex Female 6:09 PM CDT Gender Identity Not on file Sexual Orientation Not on file documented as of this encounter Miscellaneous Notes * Cerner Conversion Note - Roselyn Bocanegar MD - 11/04/2020 1:16 PM CDT DATE [...] to me by Dr. Main Paez in [place], [place], with a problem of an inflammatory [...] SOCIAL HISTORY: The patient is a one gbdm-qmb-ihh cigarette smoker. PHYSICAL EXAMINATION: GENERAL: Shows a [...] extension. ASSESSMENT: As above. PLAN: As above. /[id number] MD ANG Del AngelB/PER / LSBianca / MODL Electronically signed by [facility] Conversion Pharmacy Services Director Cerner at 06/27/2022 8:21 PM CDT documented in this encounter Plan of Treatment Not on file documented as of this encounter Visit Diagnoses Not on filedocumented in this encounter Care Teams Rivet Sticker Relationship Specialty Start Date End Date Mari Carrero, MEDICAL SERVICES COORDINATOR [address] [address] PCP - General Nurse Practitioner 08/10/23 documented as of this encounter
--- OUTSIDE RECORDS SUMMARY | 2024-09-23 14:28 | XMS_ITS | Encounter Summary ---
Author Organization [employer] ([place], [place], [place], [place]) Address [address] [place] [address] Care Team Providers Care Manager Community Name Role Phone Mari Carrero APRN Primary Care Provider Encounter Details Date Type Department Care Team (Late st Contact Info) Description 11/05/2020 Transcribed Document [facility] [place] [facility] [place] [address] ProviderRoselyn MD [address] [place] [address] Social History Tobacco Use Types Packs/Day [...] DOMINGUEZ /Sex: 1955 Female Med Rec #: [id number] Physician: DONY CERVANTES MD-OBG Financial #: [id number] Pt. Type: O Room/Bed: [facility] Admit/Disch: 11/05/20 09:46:00 - Institution: [facility] [place] PreOp Case Times Entry 1 In Preop 11/05/20 09:55:00 Ready for Holding n/a Room Patient Ready for 11/05/20 10:30:00 Surgery Patient Out of Preop 11/05/20 12:20:00 Patient Out of n/a Holding Room Last Modified By: Katelyn Ga RN 11/05/20 17:26:05 [facility] PreOp Case Times Audit 11/05/20 17:26:05 Stock Mixer: [email or web address] Modifier: [id number] <+> 1 Patient Out of Preop Finalized By: Katelyn Ga, RN Document Signatures Signed By: Katelyn Ga RN 11/05/20 17:26 documented in this encounter Plan of Treatment Not on file documented as of this encounter Visit Diagnoses Not on filedocumented in this encounter Care Teams Manager Community Relationship Specialty Start Date End Date Mari Carrero, POLE PEELER [address] [place] [phone] PCP - General Nurse Practitioner 08/10/23 documented as of this encounter
--- OUTSIDE RECORDS SUMMARY | 2024-09-23 14:28 | XMS_ITS | Encounter Summary ---
Author Organization [employer] ([place], [place], [place], [place]) Address [address] [place] [address] Care Team Providers Care Baseball Scout Name Role Phone Mari Carrero APRN Primary Care Provider [phone] Encounter Details Date Type Department Care Team (Late st Contact Info) Description 11/05/2020 Transcribed Document [facility] [place] [facility] [place] [address] ProviderRoselyn MD [address] [place] [address] Social History Tobacco Use Types Packs/Day [...] BUSHE /Sex: 1955 Female Med Rec #: [id number] Physician: DONY CERVANTES MD-OBG Financial #: [id number] Pt. Type: O Room/Bed: [facility] Admit/Disch: 11/05/20 09:46:00 - Institution: [facility] [place] Main OR PACU Case Times Entry 1 In PACU I 11/05/20 13:56:00 Ready for PACU 11/05/20 14:55:00 Discharge Discharge from PACU 11/05/20 14:55:00 I Last Modified By: BLANCA KEYS RN 11/05/20 15:08:20 Finalized By: BLANCA KEYS RN Document Signatures Signed By: BLANAC KEYS RN 11/05/20 15:08 Electronically signed by [facility] Conversion Shotblast Operator Cerner at 06/27/2022 8:34 PM CDT documented in this encounter Plan of Treatment Not on file documented as of this encounter Visit Diagnoses Not on filedocumented in this encounter Care Teams Baseball Scout Relationship Specialty Start Date End Date Mari Carrero, ASSOCIATE TEAM PHYSICIAN [address] [place] [address] PCP - General Nurse Practitioner 08/10/23 documented as of this encounter
--- OUTSIDE RECORDS SUMMARY | 2024-09-23 14:28 | XMS_ITS | Encounter Summary ---
Author Organization [employer] ([place], [place], [place], [place]) Address [address] [place] [address] Care Team Providers Care Elastic Attacher Chainstitch Name Role Phone Mari Carrero APRN Primary Care Provider [phone] Encounter Details Date Type Department Care Team (Late st Contact Info) Description 11/05/2020 Transcribed Document [facility] [place] Family Medicine [facility] [place] [address] ProviderRoselyn MD [address] [place] [address] Social History Tobacco Use Types Packs/Day [...] DOMINGUEZ /Sex: 1955 Female Med Rec #: [id number] Physician: DONY CERVANTES MD-OBG Financial #: [id number] Pt. Type: O Room/Bed: [facility] Admit/Disch: 11/05/20 09:46:00 - [place] [facility] [place] IntraOp Case Attendance Entry 1 Entry 2 Entry 3 Case Attendee DONY CERVANTES MD-OBG ANNI GOODRICH APRN, Brock, Deanna MEETING COORDINATOR-ANS Role Performed Surgeon/Proceduralist, MEETING COORDINATOR/Nurse Alterations Sewer Scrub, First First Time In 11/05/20 12:28:00 [...] Christianson RN-PATIENT CARE BEDSIDE NON-EXEMPT Role Performed Beer Maker, First Time In 11/05/20 12:28:00 Time Out 11/05/20 13:56:00 Procedure Mass Excision Genitalia Other Attendee Superficial Wound Closed By: Last Modified By: Brittani Christianson RN-PATIENT CARE BEDSIDE NON-EXEMPT 11/05/20 13:56:02 [facility] IntraOp Case Attendance Audit 11/05/20 13:56:02 Contracting Analyst: [id number] Modifier: [id number] <+> Time Out 1 <*> Procedure Mass Excision Genitalia 2 <+> Time Out 2 <*> Procedure Mass Excision Genitalia 3 <+> Time Out 3 <*> Procedure Mass Excision Genitalia 4 <+> Time Out 4 <*> Procedure Mass Excision Genitalia 11/05/20 13:10:37 Contracting Analyst: [id number] Modifier: [id number] <+> Time In 1 <*> Procedure Mass Excision Genitalia 2 <+> Time In 2 <*> Procedure Mass Excision Genitalia 3 <+> Time In 3 <*> Procedure Mass Excision Genitalia 4 <+> Time In 4 <*> Procedure Mass Excision Genitalia 11/05/20 12:53:31 Contracting Analyst: [id number] Modifier: [id number] <+> 2 Case Attendee <+> 2 Role [...] [facility] IntraOp Case Times Audit 11/05/20 13:55:49 Contracting Analyst: [id number] Modifier: [id number] <+> 1 Out Room Time <+> 1 [...] Patient Transport ANNI GOODRICH APRN, Accompanied by MEETING COORDINATOR-ANS, Brittani Christianson RN-PATIENT CARE BEDSIDE NON-EXEMPT Last [...] NON-EXEMPT 11/05/20 13:06:09 [facility] IntraOp General Case Disk Grinder 1 Case Information OR OR 04 [facility] [...] 0.5% w/ epinephrine 1:200,000 30ml vial - [id number] Route of TO FIELD Administration Dose Dose [...] Intra Op Sign Out Audit 11/05/20 13:55:56 Contracting Analyst: [id number] Modifier: [id number] <+> 1 RN Sign Out Signature Date/Time [...] [facility] IntraOp Surgical Procedures Audit 11/05/20 13:56:01 Contracting Analyst: [id number] Modifier: [id number] <+> 1 Stop 11/05/20 13:09:58 Contracting Analyst: [id number] Modifier: [id number] <+> 1 Start [facility] IntraOp Temp Regulation Devices Entry 1 Temp Regulation Temperature Forced Air Warming Regulation Device device Temperature Upper body Regulation Site Temperature Device HIGH Setting Temperature ANNI GOODRICH APRN, Regulation Device MEETING COORDINATOR-ANS Applied by Last Modified By: Brittani Christianson [...] NON-EXEMPT 11/05/20 13:56 Electronically signed by [facility] Conversion Safety And Security Officer Cerner at 06/27/2022 8:33 PM CDT documented in this encounter Plan of Treatment Not on file documented as of this encounter Visit Diagnoses Not on filedocumented in this encounter Care Teams Elastic Attacher Chainstitch Relationship Specialty Start Date End Date Mari Carrero, SURVEYOR GEODETIC [address] [place] [address] PCP - General Nurse Practitioner 08/10/23 documented as of this encounter
--- OUTSIDE RECORDS SUMMARY | 2024-09-23 14:28 | XMS_ITS | Encounter Summary ---
Author Organization [employer] ([place], [place], [place], [place]) Address [address] [place] [address] Care Team Providers Care Delivery Motorcycle Driver Name Role Phone Mari Carrero APRN Primary Care Provider [phone] Encounter Details Date Type Department Care Team (Late st Contact Info) Description 11/05/2020 Transcribed Document [facility] [place] Family Medicine Formerly [facility], [facility]–[place] [address] ProviderRoselyn MD [address] [place] [address] Social History Tobacco Use Types Packs/Day [...] Roselyn ProviderMD - 11/05/2020 3:09 PM CDT [address] [address] ANN MARIE BUSH :1955 Visit [...] EDT Where: [address] [place] [address]- [facility] (1) Medications What How Much When Instructions Next Dose acetaminophen-hydrocodone (Patterson 10 mg-325 mg oral tablet) 1 Tablet(s) [...] (fluticasone 50 mcg/ inh nasal spray) 2 [place](s) Nasal Every Day furosemide (furosemide 40 mg [...] these instructions at home: Medicines ??? Take xizz-yfo-rubohpu and prescription medicines only as told by [...] and water are not available, use hand predator control trapper. ??? Change your dressing and packing as [...] provider. Document Revised: 01/29/2019 Document Reviewed: 01/29/2019 ElseAmimon Patient Education ?? 2020 [employer] Outpatient Surgery, Adult, Care After These [...] and water are not available, use hand predator control trapper. ? Change your dressing as told by [...] or a bad smell. Medicines ??? Take clzq-yvd-jgfqfbx and prescription medicines only as told by [...] provider. Document Revised: 05/29/2018 Document Reviewed: 06/20/2016 ElseAmimon Patient Education ?? 2020 [employer] Inc. General [...] activities are safe for you. ??? Take ttzr-oqt-otyvjan and prescription medicines only as told by [...] provider. Document Revised: 03/03/2018 Document Reviewed: 10/14/2017 [employer] Patient Education ?? 2020 [employer]. Emergency Awareness and Preventative Care STROKE is [...] Assistance with quitting is available by contacting 7-502-YPAI-NOW. This is a free resource providing counseling, [...] range between ( 1.0 and 7.0 ) Dunn #: 0.23 K/uL -- Normal range between ( 0.24 and 0.82 ) Eos #: 0.03 K/uL -- Normal range between ( 0.04 and 0.54 ) [place] %: 3.2 % -- Normal range between [...] was given the opportunity to ask questions. Patient/Therapeutic Case Manager Name: Patient/Therapeutic Case Manager Signature: Relationship to Patient: Clinician/Hospital Therapeutic Case Manager Signature: Date: documented in this encounter Plan of Treatment Not on file documented as of this encounter Visit Diagnoses Not on filedocumented in this encounter Care Teams Delivery Motorcycle Driver Relationship Specialty Start Date End Date Mari Carrero, CORRESPONDENCE SECTION SUPERVISOR [address] [place] [address] PCP - General Nurse Practitioner 08/10/23 documented as of this encounter
--- OUTSIDE RECORDS SUMMARY | 2024-09-23 14:28 | XMS_ITS | Clinical Summary ---
Author Organization [employer] ([place], [place], [place], [place]) Address [address] [place] [address] Care Team Providers Care Edge Stripper Name Role Phone Mari Carrero VERIFICATION SPECIALIST Primary Care Provider Allergies Active Allergy Reactions [...] Due Influenza High Dose Preservative Free IM ([id number] ) 03/31/2020 Influenza Quad-qiv Non Pf 01/23/2018 [...] Date Silviano rded Speak language other than Moldovan at home Not on file 05/25/2023 Want [...] 08/09/2028 08/10/2023 Colorectal Cancer Screening 08/09/2028 Insurance [facility] MEDICARE ADVANTAGE Care Teams Edge Stripper Relationship Specialty Start Date End Date Mari Carrero, VERIFICATION SPECIALIST [address] [place] [address] PCP - General Nurse Practitioner 08/10/23
[2024-09-23] MEDS: ERTAPENEM SODIUM 1 GM in 0.9 % SODIUM CHLORIDE 50 ML IV (15:18)
== END 2024-09-23 16:00 | disposition home or self-care (01) ==
LOC: INF 14:27
PROVIDERS: PCP Nurse Practitioner Family; Visit Provider Nurse Practitioner Family
DX: N39.0 Urinary tract infection, site not specified (principal); E11.9 Type 2 diabetes mellitus without complications
CPT/HCPCS: 96365; 96374; J1335

== ENCOUNTER 2024-09-25 14:35 | Outpatient (CLI) | payer MEDICARE, SELFPAY ==
--- OUTSIDE RECORDS SUMMARY | 2024-09-25 14:36 | XMS_ITS | Continuity of Care Document ---
Author Organization [facility]. If a dditional information is needed, contact Health Information Management at [phone] Address [address] [place] [address] Phone Care Team Providers Care Post Closer Name Role Phone Unavailable Unavailable Unavailable Unavailable Unavailable Unavailable Unavailable Unavailable Unavailable Unavailable Unavailable Problems Bradycardia Onset:16-Jul-2022 Yovani Helms MD Status:Acute Acute hepatic failure due to drugs Onset:16-Jul-2022 Yovani Helms MD Status:Acute Suicide attempt Onset:16-Jul-2022 Yovani Helms MD Status:Acute Acetaminophen overdose Onset:16-Jul-2022 Yovani Helms MD Status:Acute Gastroesophageal reflux dise ase Onset:16-Jul-2022 Yovani Helms MD Status:Acute Depressive disorder Onset:16-Jul-2022 Yovani Helms MD Status:Acute Diabetes mellitus Onset:16-Jul-2022 Yovani Helms MD Status:Acute Hypertension Onset:16-Jul-2022 Yovani Helms MD Status:Acute Functional Status [...]
--- OUTSIDE RECORDS SUMMARY | 2024-09-25 14:38 | XMS_ITS | Encounter Summary ---
Author Organization [employer] ([place], [place], [place], [place]) Address [address] [place] [address] Care Team Providers Care Certified Nurse Practitioner Name Role Phone Mari Carrero APRN Primary Care Provider Encounter Details Date Type Department Care Team (Late st Contact Info) Description 11/05/2020 Transcribed Document [facility] [place] [facility] [place] [address] ProviderRoselyn MD [address] [place] [address] Social History Tobacco Use Types Packs/Day [...] BUSH /Sex: 1955 Female Med Rec #: [id number] Physician: DONY CERVANTES MD-OBG Financial #: [id number] Pt. Type: O Room/Bed: [facility] Admit/Disch: 11/05/20 09:46:00 - Institution: [facility] Main OR PostOp Case Times Entry 1 In PACU II 11/05/20 15:00:00 Ready for PACU II 11/05/20 15:30:00 Discharge Discharge from PACU 11/05/20 15:45:00 II Last Modified By: KATHLEEN BRAMBILA, RN 11/05/20 16:01:57 [facility] Main OR PostOp Case Times Audit 11/05/20 16:01:57 Email Deployment Specialist: [email or web address] Modifier: [email or web address] <+> 1 Discharge from PACU II 11/05/20 15:47:34 Email Deployment Specialist: ELDERJM Modifier: [email or web address] <+> 1 Ready for PACU II Discharge Finalized By: KATHLEEN BRAMBILA, RN Document Signatures Signed By: KATHLEEN BRAMBILA RN 11/05/20 16:02 documented in this encounter Plan of Treatment Not on file documented as of this encounter Visit Diagnoses Not on filedocumented in this encounter Care Teams Certified Nurse Practitioner Relationship Specialty Start Date End Date Mari Carrero, ASSOCIATE PROFESSOR OF LIBRARY SCIENCE [address] [address] PCP - General Nurse Practitioner 08/10/23 documented as of this encounter
--- OUTSIDE RECORDS SUMMARY | 2024-09-25 14:38 | XMS_ITS | Encounter Summary ---
Author Organization [employer] ([place], [place], [place], [place]) Address [address] [place] [address] Care Team Providers Care Veterinarian Poultry Name Role Phone Mari Carrero APRN Primary Care Provider Encounter Details Date Type Department Care Team (Late st Contact Info) Description 11/04/2020 Transcribed Document [facility] [place] [address] [place] [address] ProviderRoselyn MD [address] [place] [address] Social History Tobacco Use Types Packs/Day Years [...] to me by Dr. Main Paez in [place], [place], with a problem of an inflammatory [...] SOCIAL HISTORY: The patient is a one ndxh-lwr-uul cigarette smoker. PHYSICAL EXAMINATION: GENERAL: Shows a [...] extension. ASSESSMENT: As above. PLAN: As above. /[id number] MD ANG Del AngelB/PER / LSBianca / MODL Electronically signed by Marion [facility] Conversion Storage Receipt Poster Cerner at 06/27/2022 8:21 PM CDT documented in this encounter Plan of Treatment Not on file documented as of this encounter Visit Diagnoses Not on filedocumented in this encounter Care Teams Veterinarian Poultry Relationship Specialty Start Date End Date Mari Carrero, ROUND CUTTER OPERATOR [address] [address] PCP - General Nurse Practitioner 08/10/23 documented as of this encounter
--- OUTSIDE RECORDS SUMMARY | 2024-09-25 14:38 | XMS_ITS | Clinical Summary ---
Author Organization [employer] ([place], [place], [place], [place]) Address [address] [place] [address] Care Team Providers Care Reporting Manager Name Role Phone Mari Carrero ACCOUNTING MANAGER CONTROLLER Primary Care Provider Allergies Active Allergy Reactions [...] Due Influenza High Dose Preservative Free IM ([id number] ) 03/31/2020 Influenza Quad-qiv Non Pf 01/23/2018 [...] Date Silviano rded Speak language other than Faroese at home Not on file 05/25/2023 Want [...] 08/09/2028 08/10/2023 Colorectal Cancer Screening 08/09/2028 Insurance [facility] MEDICARE ADVANTAGE Care Teams Reporting Manager Relationship Specialty Start Date End Date Mari Carrero, ACCOUNTING MANAGER CONTROLLER [address] [place] [address] PCP - General Nurse Practitioner 08/10/23
--- OUTSIDE RECORDS SUMMARY | 2024-09-25 14:38 | XMS_ITS | Encounter Summary ---
Author Organization [employer] ([place], [place], [place], [place]) Address [address] [place] [address] Care Team Providers Care Director Biostatistics Name Role Phone Mari Carrero APRN Primary Care Provider Encounter Details Date Type Department Care Team (Late st Contact Info) Description 11/05/2020 Transcribed Document [facility] [place] Family Medicine [address] [place] [address] ProviderRoselyn MD [address] [place] [address] Social History Tobacco Use Types Packs/Day [...] BLOOD LOSS: Approximately 15 to 20 mL. /[id number] Zane Redman MD LSB/AQ / LSB / MODL /[id number] documented in this encounter Plan of Treatment Not on file documented as of this encounter Visit Diagnoses Not on filedocumented in this encounter Care Teams Director Biostatistics Relationship Specialty Start Date End Date Mari Carrero APRN [address] [address] PCP - General Nurse Practitioner 08/10/23 documented as of this encounter
--- OUTSIDE RECORDS SUMMARY | 2024-09-25 14:38 | XMS_ITS | Encounter Summary ---
Author Organization [employer] ([place], [place], [place], [place]) Address [address] [place] [address] Care Team Providers Care Photographic Restorer Name Role Phone Mari Carrero APRN Primary Care Provider Encounter Details Date Type Department Care Team (Late st Contact Info) Description 11/05/2020 Transcribed Document [facility] [place] Medicine [facility] [place] [address] ProviderRoselyn MD [address] [place] [address] Social History Tobacco Use Types [...] Source : Stated Height Entry Format : [place] Height, Feet : 5 ft(Converted to: 152 cm, 60 Inch) Height, Inches : 2 Inch(Converted to: 0 ft 2 Inch, 5.08 cm) Clinical Height : 157.48 cm Weight Source : Standing scale Weight Entry Format : [place] Clinical Dosing Weight : 85.91 kg Weight, Pounds : 189 lb Body Surface Area (BSA) : 1.87 m2 Body Mass Index : 34.6 kg/m2 (HI) [place] Body Weight : 50 kg Alisha Munoz [...] Alisha Munoz Rn - 11/05/2020 10:40 EDT [place] Suicide Severity Rating Scale (C-SSRS) CSSRS Past [...] Obtained From : Patient Primary Language : Kosovan Communication Barrier : None Marine Cargo Specialist Needed : No Alisha Munoz Rn - [...] on filedocumented in this encounter Care Teams Photographic Restorer Relationship Specialty Start Date End Date Mari Carrero, MARTIR [address] [place] [address] PCP - General Nurse Practitioner 08/10/23 documented as of this encounter
--- OUTSIDE RECORDS SUMMARY | 2024-09-25 14:38 | XMS_ITS | Encounter Summary ---
Author Organization [employer] ([place], [place], [place], [place]) Address [address] [place] [address] Care Team Providers Care Orthodontic Band Maker Name Role Phone Mari Carrero APRN Primary Care Provider Encounter Details Date Type Department Care Team (Late st Contact Info) Description 11/05/2020 Transcribed Document [facility] [place] Family Medicine [place] [address] ProviderRoselyn MD [address] [place] [address] Social History Tobacco Use Types Packs/Day Years Used Date Smoking Tobacco: Never Assessed Comments Unknown Sex and Gender Information Value Date Recorded Sex Assigned at Not on file Legal Sex Female 6:09 PM CDT Gender Identity Not on file Sexual Orientation Not on file documented as of this encounter Miscellaneous Notes * Cerner Conversion Note - Roselyn Bocanerga MD - 11/05/2020 12:49 PM CDT [facility] Main OR PACU Summary Primary Physician: DONY CERVANTES MD-OBG Finalized Date/Time: 11/05/20 15:08:22 Pt. Name: ANN MARIE BUSHE /Sex: 1955 Female Med Rec #: [id number] Physician: DONY CERVANTES MD-OBG Financial #: [id number] Pt. Type: O Room/Bed: [facility] Admit/Disch: 11/05/20 09:46:00 - Institution: [facility] Main OR PACU Case Times Entry 1 In PACU I 11/05/20 13:56:00 Ready for PACU 11/05/20 14:55:00 Discharge Discharge from PACU 11/05/20 14:55:00 I Last Modified By: BLANCA KEYS RN 11/05/20 15:08:20 Finalized By: BLANCA KEYS RN Document Signatures Signed By: BLANCA KEYS RN 11/05/20 15:08 Electronically signed by Marion [facility] Conversion Derrick Follower Cerner at 06/27/2022 8:34 PM CDT documented in this encounter Plan of Treatment Not on file documented as of this encounter Visit Diagnoses Not on filedocumented in this encounter Care Teams Orthodontic Band Maker Relationship Specialty Start Date End Date Mari Carrero, DENTAL LABORATORY TECHNICIAN APPRENTICE [address] [place] [address] PCP - General Nurse Practitioner 08/10/23 documented as of this encounter
--- OUTSIDE RECORDS SUMMARY | 2024-09-25 14:38 | XMS_ITS | Encounter Summary ---
Author Organization [employer] ([place], [place], [place], [place]) Address [address] [place] [address] Care Team Providers Care Care Consultant Name Role Phone Mari Carrero APRN Primary Care Provider Encounter Details Date Type Department Care Team (Late st Contact Info) Description 11/05/2020 Transcribed Document [facility] Family [place] [address] ProviderRoselyn MD [address] [place] [address] Social History Tobacco Use Types Packs/Day [...] DOMINGUEZ /Sex: 1955 Female Med Rec #: [id number] Physician: DONY CERVANTES MD-OBG Financial #: [id number] Pt. Type: O Room/Bed: [facility] Admit/Disch: 11/05/20 09:46:00 - Institution: [facility] [place] IntraOp Case Attendance Entry 1 Entry 2 Entry 3 Case Attendee DONY CERVANTES MD-OBG ANNI GOODRICH APRN, Brock, Deanna VACUUM CLEANER MECHANIC-ANS Role Performed Surgeon/Proceduralist, VACUUM CLEANER MECHANIC/Nurse Trouble Operator Scrub, First First Time In 11/05/20 [...] Christianson RN-PATIENT CARE BEDSIDE NON-EXEMPT Role Performed Wire Threader, First Time In 11/05/20 12:28:00 Time Out 11/05/20 13:56:00 Procedure Mass Excision Genitalia Other Attendee Superficial Wound Closed By: Last Modified By: Brittani Christianson RN-PATIENT CARE BEDSIDE NON-EXEMPT 11/05/20 13:56:02 [facility] IntraOp Case Attendance Audit 11/05/20 13:56:02 Supervisor Solder Making: [id number] Modifier: [id number] <+> Time Out 1 <*> Procedure Mass Excision Genitalia 2 <+> Time Out 2 <*> Procedure Mass Excision Genitalia 3 <+> Time Out 3 <*> Procedure Mass Excision Genitalia 4 <+> Time Out 4 <*> Procedure Mass Excision Genitalia 11/05/20 13:10:37 Supervisor Solder Making: [id number] Modifier: [id number] <+> Time In 1 <*> Procedure Mass Excision Genitalia 2 <+> Time In 2 <*> Procedure Mass Excision Genitalia 3 <+> Time In 3 <*> Procedure Mass Excision Genitalia 4 <+> Time In 4 <*> Procedure Mass Excision Genitalia 11/05/20 12:53:31 Supervisor Solder Making: [id number] Modifier: [id number] <+> 2 Case Attendee <+> 2 Role [...] Time 11/05/20 13:50:00 Last Modified By: Brittani Christinason RN-PATIENT CARE BEDSIDE NON-EXEMPT 11/05/20 13:55:49 [facility] IntraOp Case Times Audit 11/05/20 13:55:49 Supervisor Solder Making: [id number] Modifier: [id number] <+> 1 Out Room Time <+> 1 [...] Patient Transport ANNI GOODRICH APRN, Accompanied by VACUUM CLEANER MECHANIC-ANS, Brittani Christianson RN-PATIENT CARE BEDSIDE NON-EXEMPT Last [...] NON-EXEMPT 11/05/20 13:06:09 [facility] IntraOp General Case Entry Level Drafter 1 Case Information OR OR 04 [facility] [...] 0.5% w/ epinephrine 1:200,000 30ml vial - [id number] Route of TO FIELD Administration Dose Dose [...] Intra Op Sign Out Audit 11/05/20 13:55:56 Supervisor Solder Making: [id number] Modifier: [id number] <+> 1 RN Sign Out Signature Date/Time [...] [facility] IntraOp Surgical Procedures Audit 11/05/20 13:56:01 Supervisor Solder Making: [id number] Modifier: [id number] <+> 1 Stop 11/05/20 13:09:58 Supervisor Solder Making: [id number] Modifier: [id number] <+> 1 Start [facility] IntraOp Temp Regulation Devices Entry 1 Temp Regulation Temperature Forced Air Warming Regulation Device device Temperature Upper body Regulation Site Temperature Device HIGH Setting Temperature ANNI GOODRICH APRN, Regulation Device VACUUM CLEANER MECHANIC-ANS Applied by Last Modified By: Brittani Christianson [...] NON-EXEMPT 11/05/20 13:56 Electronically signed by Marion [facility] Conversion Supervisor Counseling And Guidance Cerner at 06/27/2022 8:33 PM CDT documented in this encounter Plan of Treatment Not on file documented as of this encounter Visit Diagnoses Not on filedocumented in this encounter Care Teams Care Consultant Relationship Specialty Start Date End Date Mari Carrero, RESEARCH AIDE [address] [place] [address] PCP - General Nurse Practitioner 08/10/23 documented as of this encounter
--- OUTSIDE RECORDS SUMMARY | 2024-09-25 14:38 | XMS_ITS | Encounter Summary ---
Author Organization [employer] ([place], [place], [place], [place]) Address [address] [place] [address] Care Team Providers Care Bottler Helper Name Role Phone Mari Carrero APRN Primary Care Provider Encounter Details Date Type Department Care Team (Late st Contact Info) Description 11/05/2020 Transcribed Document [facility] [place] Family Medicine [facility] [address] ProviderRoselyn MD [address] [place] [address] Social History Tobacco Use Types Packs/Day [...] Roselyn ProviderMD - 11/05/2020 3:09 PM CDT [address] [address] ANN MARIE BUSH :1955 Visit [...] EDT Where: [address] [place] [address]- [facility] (1) Medications What How Much When Instructions Next Dose acetaminophen-hydrocodone (Adel 10 mg-325 mg oral tablet) 1 Tablet(s) [...] (fluticasone 50 mcg/ inh nasal spray) 2 [place](s) Nasal Every Day furosemide (furosemide 40 mg [...] these instructions at home: Medicines ??? Take ehvv-doq-prvkxgv and prescription medicines only as told by [...] and water are not available, use hand protein chemist. ??? Change your dressing and packing as [...] provider. Document Revised: 01/29/2019 Document Reviewed: 01/29/2019 ElseConteXtream Patient Education ?? 2020 [employer] Outpatient Surgery, Adult, Care After These [...] and water are not available, use hand protein chemist. ? Change your dressing as told by [...] or a bad smell. Medicines ??? Take toyr-mwb-grfynxf and prescription medicines only as told by [...] provider. Document Revised: 05/29/2018 Document Reviewed: 06/20/2016 ElseConteXtream Patient Education ?? 2020 [employer]. General [...] activities are safe for you. ??? Take vggk-rdo-srousgs and prescription medicines only as told by [...] provider. Document Revised: 03/03/2018 Document Reviewed: 10/14/2017 [employer] Patient Education ?? 2020 [employer]. Emergency Awareness and Preventative Care STROKE is [...] Assistance with quitting is available by contacting 7-391-BAHI-NOW. This is a free resource providing counseling, [...] range between ( 1.0 and 7.0 ) [place] #: 0.23 K/uL -- Normal range between ( 0.24 and 0.82 ) Eos #: 0.03 K/uL -- Normal range between ( 0.04 and 0.54 ) [place] %: 3.2 % -- Normal range between [...] was given the opportunity to ask questions. Patient/Customer Support Technician Name: Patient/Customer Support Technician Signature: Relationship to Patient: Clinician/Hospital Customer Support Technician Signature: Date: documented in this encounter Plan of Treatment Not on file documented as of this encounter Visit Diagnoses Not on filedocumented in this encounter Care Teams Bottler Helper Relationship Specialty Start Date End Date Mari Carrero, EDGE RUNNER [address] [place] [address] PCP - General Nurse Practitioner 08/10/23 documented as of this encounter
--- OUTSIDE RECORDS SUMMARY | 2024-09-25 14:38 | XMS_ITS | Encounter Summary ---
Author Organization [employer] ([place], [place], [place], [place]) Address [address] [place] [address] Care Team Providers Care Sap Ppm Consultant Name Role Phone Mari Carrero APRN Primary Care Provider Encounter Details Date Type Department Care Team (Late st Contact Info) Description 11/05/2020 Transcribed Document [facility] [place] [facility] [place] [address] ProviderRoselyn MD [address] [place] [address] Social History Tobacco Use Types Packs/Day [...] DOMINGUEZ /Sex: 1955 Female Med Rec #: [id number] Physician: DONY CERVANTES MD-OBG Financial #: [id number] Pt. Type: O Room/Bed: [facility] Admit/Disch: 11/05/20 09:46:00 - Institution: [facility] PreOp Case Times Entry 1 In Preop 11/05/20 09:55:00 Ready for Holding n/a Room Patient Ready for 11/05/20 10:30:00 Surgery Patient Out of Preop 11/05/20 12:20:00 Patient Out of n/a Holding Room Last Modified By: Katelyn Ga RN 11/05/20 17:26:05 [facility] PreOp Case Times Audit 11/05/20 17:26:05 Basket Hand Weaver: [id number] Modifier: [id number] <+> 1 Patient Out of Preop Finalized By: Katelyn Ga, RN Document Signatures Signed By: Katelyn Ga RN 11/05/20 17:26 documented in this encounter Plan of Treatment Not on file documented as of this encounter Visit Diagnoses Not on filedocumented in this encounter Care Teams Sap Ppm Consultant Relationship Specialty Start Date End Date Mari Carrero, NUCLEAR FUEL PROCESSING TECHNICIAN [address] [place] [id number] PCP - General Nurse Practitioner 08/10/23 documented as of this encounter
--- OUTSIDE RECORDS SUMMARY | 2024-09-25 14:38 | XMS_ITS | Encounter Summary ---
Author Organization [employer] ([place], [place], [place], [place]) Address [address] [place] [address] Care Team Providers Care Patient Financial Services Coordinator Name Role Phone Mari Carrero APRN Primary Care Provider Encounter Details Date Type Department Care Team (Late st Contact Info) Description 11/05/2020 Transcribed Document [facility] [place] Former[facility], [facility] [place] [address] ProviderRoselyn MD [address] [place] [address] Social History Tobacco Use Types Packs/Day [...] these instructions at home: Medicines ??? Take lato-iep-ttaadip and prescription medicines only as told by [...] and water are not available, use hand coil connector repairer. ??? Change your dressing and packing as [...] provider. Document Revised: 01/29/2019 Document Reviewed: 01/29/2019 [employer] Patient Education ? 2020 Else[employer] Inc. Pharmacology [...] activities are safe for you. ??? Take whow-wqy-rihioep and prescription medicines only as told by [...] provider. Document Revised: 03/03/2018 Document Reviewed: 10/14/2017 [employer] [facility] Patient Education ? 2020 [employer] Inc[employer] Procedures Outpatient Surgery, Adult, Care After [...] and water are not available, use hand coil connector repairer. ? Change your dressing as told by [...] or a bad smell. Medicines ??? Take qxgp-oug-bkrbsvj and prescription medicines only as told by [...] provider. Document Revised: 05/29/2018 Document Reviewed: 06/20/2016 [employer] Patient Education ? 2020 [employer] Inc. Electronically signed by Yahir Schultz Conversion Senior Administrative Support Matthewner at 06/27/2022 8:30 PM CDT documented in this encounter Plan of Treatment Not on file documented as of this encounter Visit Diagnoses Not on filedocumented in this encounter Care Teams Patient Financial Services Coordinator Relationship Specialty Start Date End Date Mari Carrero APRN [address] [address] PCP - General Nurse Practitioner 08/10/23 documented as of this encounter
--- OUTSIDE RECORDS SUMMARY | 2024-09-25 14:38 | XMS_ITS | Clinical Summary ---
Author Organization [facility] Address [address] [place] [address] Care Team Providers Care Fruit Packer Face And Fill Name Role Phone Reynold Khan MD Primary Care Provider +1- [phone] Allergies Active Allergy Reactions Criticality Noted Date [...] day. Active cholecalciferol (Vitamin D3) 1.25 MG (41911 UT) tablet Take 50,000 Units by mouth [...] No Healthcare Surrogate: Healthcare POA Care Teams Fruit Packer Face And Fill Relationship Specialty Start Date End Date Reynold Khan MD [address] [place] [address] PCP - General 07/25/20
--- OUTSIDE RECORDS SUMMARY | 2024-09-25 14:38 | XMS_ITS | Referral Summary ---
Author Organization [employer] ([place], [place], [place], [place]) Address [address] [place] [address] Care Team Providers Care Principal Web Developer Name Role Phone Mari Carrero FIRE CREW SPECIALIST Primary Care Provider Allergies Active Allergy [...] Due Influenza High Dose Preservative Free IM (ENR802 ) 03/31/2020 Influenza Quad-qiv Non Pf 01/23/2018 [...] Date Silviano rded Speak language other than Cambodian at home Not on file 05/25/2023 Want [...] Plan of Treatment Not on file Insurance [facility] MEDICARE ADVANTAGE Care Teams Principal Web Developer Relationship Specialty Start Date End Date Mari Carrero, FIRE CREW SPECIALIST [address] [place] [address] PCP - General Nurse Practitioner 08/10/23
--- OUTSIDE RECORDS SUMMARY | 2024-09-25 14:38 | XMS_ITS | Encounter Summary ---
Author Organization [facility] Address [address] [place] [address] Care Team Providers Care Drywall Mechanic Name Role Phone Reynold Khan MD Primary Care Provider +1- [phone] Encounter Details Date Type Department Care Team (Late st Contact Info) Description 07/19/2022 Lab Requisition [facility] [address] [place] [address] Maxwell Neal MD [address] [place] [address] Encounter for general adult medical [...] Date of Assessment Author Initial/First Attempt Date [address] 07/19/2022 2:0 0 PM EDT Maliha Bond [...] GENERAL ORDERABLES Final Result Performing Organization Address City/State/[facility] Co de Phone Number HEALTHCARE LAB [address] [place] [address] documented in this encounter Visit Diagnoses Diagnosis Encounter for general adult medical examination without abnormal findings documented in this encounter Care Teams Drywall Mechanic Relationship Specialty Start Date End Date Reynold Khan MD [address] [place] [address] PCP - General 07/25/20 documented as of this encounter
[2024-09-25 14:45] VITALS: BP 155/82; PULSE 86; RESP 18; O2SAT 97
[2024-09-25] MEDS: ERTAPENEM SODIUM 1 GM in 0.9 % SODIUM CHLORIDE 50 ML IV (14:45)
[2024-09-25 15:35] VITALS: BP 152/79; PULSE 79; RESP 18; O2SAT 97
== END 2024-09-25 15:35 | disposition home or self-care (01) ==
LOC: INF 14:36
PROVIDERS: PCP Nurse Practitioner Family; Visit Provider Nurse Practitioner Family
DX: N39.0 Urinary tract infection, site not specified (principal)
CPT/HCPCS: 96365; J1335

== ENCOUNTER 2024-09-26 14:18 | Outpatient (CLI) | payer MEDICARE, SELFPAY ==
--- OUTSIDE RECORDS SUMMARY | 2024-09-26 14:22 | XMS_ITS | Encounter Summary ---
Author Organization [employer] ([place], [place], [place], [place]) Address [address] [place] [address] Care Team Providers Care Fast Food Restaurant Manager Name Role Phone Mari Carrero APRN Primary Care Provider Encounter Details Date Type Department Care Team (Late st Contact Info) Description 11/05/2020 Transcribed Document [facility] [place] [facility] [place] [address] ProviderRoselyn MD [address] [place] [address] Social History Tobacco Use Types Packs/Day [...] BUSHE /Sex: 1955 Female Med Rec #: [id number] Physician: DONY CERVANTES MD-OBG Financial #: [id number] Pt. Type: O Room/Bed: [facility] Admit/Disch: 11/05/20 09:46:00 - [place] [facility] [place] PAC[place] Case Times Entry 1 In PACU I 11/05/20 13:56:00 Ready for PACU 11/05/20 14:55:00 Discharge Discharge from PACU 11/05/20 14:55:00 I Last Modified By: BLANCA KEYS RN 11/05/20 15:08:20 Finalized By: BLANCA KEYS RN Document Signatures Signed By: BLANCA KEYS RN 11/05/20 15:08 Electronically signed by [facility] Conversion Customer Service Administrator Cerner at 06/27/2022 8:34 PM CDT documented in this encounter Plan of Treatment Not on file documented as of this encounter Visit Diagnoses Not on filedocumented in this encounter Care Teams Fast Food Restaurant Manager Relationship Specialty Start Date End Date Mari Carrero, HYDROMETEOROLOGIST [address] [place] [address] PCP - General Nurse Practitioner 08/10/23 documented as of this encounter
--- OUTSIDE RECORDS SUMMARY | 2024-09-26 14:22 | XMS_ITS | Encounter Summary ---
Author Organization [employer] ([place], [place], [place], [place]) Address [address] [place] [address] Care Team Providers Care Nut Tapper Name Role Phone Mari Carrero APRN Primary Care Provider Encounter Details Date Type Department Care Team (Late st Contact Info) Description 11/05/2020 Transcribed Document [facility] [place] [facility] [place] [address] ProviderRoselyn MD [address] [place] [address] Social History Tobacco Use Types [...] Source : Stated Height Entry Format : Vanderwagen Height, Feet : 5 ft(Converted to: 152 cm, 60 Inch) Height, Inches : 2 Inch(Converted to: 0 ft 2 Inch, 5.08 cm) Clinical Height : 157.48 cm Weight Source : Standing scale Weight Entry Format : Vanderwagen Clinical Dosing Weight : 85.91 kg Weight, Pounds : 189 lb Body Surface Area (BSA) : 1.87 m2 Body Mass Index : 34.6 kg/m2 (HI) [place] Body Weight : 50 kg Alisha Munoz [...] Alisha Munoz Rn - 11/05/2020 10:40 EDT [place] Suicide Severity Rating Scale (C-SSRS) CSSRS Past [...] Obtained From : Patient Primary Language : Burkinan Communication Barrier : None Correction Officer [place] [facility] Needed : No Alisha Munoz Rn - [...] on filedocumented in this encounter Care Teams Nut Tapper Relationship Specialty Start Date End Date Mari Carrero, MARTIR [address] [place] [address] PCP - General Nurse Practitioner 08/10/23 documented as of this encounter
--- OUTSIDE RECORDS SUMMARY | 2024-09-26 14:22 | XMS_ITS | Encounter Summary ---
Author Organization [employer] ([place], [place], [place], [place]) Address [address] [place] [address] Care Team Providers Care Hotel General Manager Name Role Phone Mari Carrero APRN Primary Care Provider Encounter Details Date Type Department Care Team (Late st Contact Info) Description 11/05/2020 Transcribed Document [facility] [place] [facility] [place] [address] ProviderRoselyn MD [address] [place] [address] Social History Tobacco Use Types Packs/Day [...] Roselyn ProviderMD - 11/05/2020 3:09 PM CDT [address] [address] ANN MARIE BUSH :1955 Visit [...] EDT Where: [address] [place] [address]- [facility] (1) Medications What How Much When Instructions Next Dose acetaminophen-hydrocodone ([place] 10 mg-325 mg oral tablet) 1 Tablet(s) [...] (fluticasone 50 mcg/ inh nasal spray) 2 [place](s) Nasal Every Day furosemide (furosemide 40 mg [...] these instructions at home: Medicines ??? Take mdmr-qfm-ifafgvm and prescription medicines only as told by [...] and water are not available, use hand franchise sales representative. ??? Change your dressing and packing as [...] provider. Document Revised: 01/29/2019 Document Reviewed: 01/29/2019 [employer] Patient Education ?? 2020 [employer] Outpatient Surgery, Adult, Care After These [...] and water are not available, use hand franchise sales representative. ? Change your dressing as told by [...] or a bad smell. Medicines ??? Take lxwe-kpu-kdimcnu and prescription medicines only as told by [...] provider. Document Revised: 05/29/2018 Document Reviewed: 06/20/2016 [employer] Patient Education ?? 2020 Elsevier Inc. General [...] activities are safe for you. ??? Take ftdv-tks-txjnssh and prescription medicines only as told by [...] provider. Document Revised: 03/03/2018 Document Reviewed: 10/14/2017 [employer] Patient Education ?? 2020 [employer]. Emergency Awareness and Preventative Care STROKE [...] Assistance with quitting is available by contacting 7-321-RNDX-NOW. This is a free resource providing counseling, [...] range between ( 1.0 and 7.0 ) [place] #: 0.23 K/uL -- Normal range between ( 0.24 and 0.82 ) [place] #: 0.03 K/uL -- Normal range between ( 0.04 and 0.54 ) [place] %: 3.2 % -- Normal range between [...] was given the opportunity to ask questions. Patient/Shuttle Hand Name: Patient/Shuttle Hand Signature: Relationship to Patient: Clinician/Hospital Shuttle Hand Signature: Date: documented in this encounter Plan of Treatment Not on file documented as of this encounter Visit Diagnoses Not on filedocumented in this encounter Care Teams Hotel General Manager Relationship Specialty Start Date End Date Mari Carrero, PYROMETER MECHANIC [address] [place] [address] PCP - General Nurse Practitioner 08/10/23 documented as of this encounter
--- OUTSIDE RECORDS SUMMARY | 2024-09-26 14:22 | XMS_ITS | Clinical Summary ---
Author Organization [employer] ([place], [place], [place], [place]) Address [address] [place] [address] Care Team Providers Care Logistician Name Role Phone Mari Carrero COLLAR FOLDER OPERATOR Primary Care Provider Allergies Active Allergy [...] Due Influenza High Dose Preservative Free IM (NAA605 ) 03/31/2020 Influenza Quad-qiv Non Pf 01/23/2018 [...] Date Silviano rded Speak language other than Tunisian at home Not on file 05/25/2023 Want [...] 08/09/2028 08/10/2023 Colorectal Cancer Screening 08/09/2028 Insurance [facility] MEDICARE ADVANTAGE Care Teams Logistician Relationship Specialty Start Date End Date Mari Carrero, COLLAR FOLDER OPERATOR [address] [place] [address] PCP - General Nurse Practitioner 08/10/23
--- OUTSIDE RECORDS SUMMARY | 2024-09-26 14:22 | XMS_ITS | Encounter Summary ---
Author Organization [facility] Address [address] [place] [address] Care Team Providers Care Certified Detention Deputy Name Role Phone Reynold Khan MD Primary Care Provider +1- [phone] Encounter Details Date Type Department Care Team (Late st Contact Info) Description 07/19/2022 Lab Requisition [facility] [address] [place] [address] Maxwell Neal MD [address] [place] [address] Encounter for general adult medical [...] Date of Assessment Author Initial/First Attempt Date [address] 07/19/2022 2:0 0 PM EDT Maliha Bond [...] HOSPITALS Co de Phone Number HEALTHCARE LAB [address] [place] [address] documented in this encounter Visit Diagnoses Diagnosis Encounter for general adult medical examination without abnormal findings documented in this encounter Care Teams Certified Detention Deputy Relationship Specialty Start Date End Date Reynold Khan MD [address] [place] [address] PCP - General 07/25/20 documented as of this encounter
--- OUTSIDE RECORDS SUMMARY | 2024-09-26 14:22 | XMS_ITS | Encounter Summary ---
Author Organization [employer] ([place], [place], [place], [place]) Address [address] [place] [address] Care Team Providers Care Sewer Bricklayer Name Role Phone Mari Carrero APRN Primary Care Provider [phone] Encounter Details Date Type Department Care Team (Late st Contact Info) Description 11/04/2020 Transcribed Document [facility] [place] [address] [place] [address] ProviderRoselyn MD [address] [place] [phone] Social History Tobacco Use Types Packs/Day Years [...] to me by Dr. Main Paez in [place], [place], with a problem of an inflammatory [...] SOCIAL HISTORY: The patient is a one doel-xlq-lfc cigarette smoker. PHYSICAL EXAMINATION: GENERAL: Shows a [...] extension. ASSESSMENT: As above. PLAN: As above. /[id number] MD ANG Del AngelB/PER / LSBianca / MODL Electronically signed by [facility] Conversion Burn Table Operator Cerner at 06/27/2022 8:21 PM CDT documented in this encounter Plan of Treatment Not on file documented as of this encounter Visit Diagnoses Not on filedocumented in this encounter Care Teams Sewer Bricklayer Relationship Specialty Start Date End Date Mari Carrero, FINISH PATCHER [address] [address] PCP - General Nurse Practitioner 08/10/23 documented as of this encounter
--- OUTSIDE RECORDS SUMMARY | 2024-09-26 14:22 | XMS_ITS | Clinical Summary ---
Author Organization [facility] Address [address] [place] [address] Care Team Providers Care Siebel Consultant Name Role Phone Reynold Khan MD Primary Care Provider +1- [phone] Allergies Active Allergy Reactions Criticality Noted Date [...] day. Active cholecalciferol (Vitamin D3) 1.25 MG (67813 UT) tablet Take 50,000 Units by mouth [...] No Healthcare Surrogate: Healthcare POA Care Teams Siebel Consultant Relationship Specialty Start Date End Date Reynold Khan MD [address] [place] [address] PCP - General 07/25/20
--- OUTSIDE RECORDS SUMMARY | 2024-09-26 14:22 | XMS_ITS | Referral Summary ---
Author Organization [employer] ([place], [place], [place], [place]) Address [address] [place] [address] Care Team Providers Care Veneer Grader Name Role Phone Mari Carrero INFORMATION SYSTEMS TECHNICIAN Primary Care Provider [phone] Allergies Active Allergy Reactions Criticality Noted Date [...] Due Influenza High Dose Preservative Free IM (BPU152 ) 03/31/2020 Influenza Quad-qiv Non Pf 01/23/2018 [...] Date Silviano rded Speak language other than Uruguayan at home Not on file 05/25/2023 Want [...] Plan of Treatment Not on file Insurance [facility] MEDICARE ADVANTAGE Care Teams Veneer Grader Relationship Specialty Start Date End Date Mari Carrero, INFORMATION SYSTEMS TECHNICIAN [address] [place] [address] PCP - General Nurse Practitioner 08/10/23
--- OUTSIDE RECORDS SUMMARY | 2024-09-26 14:22 | XMS_ITS | Encounter Summary ---
Author Organization [employer] ([place], [place], [place], [place]) Address [address] [place] [address] Care Team Providers Care Drapery Operator Name Role Phone Mari Carrero APRN Primary Care Provider Encounter Details Date Type Department Care Team (Late st Contact Info) Description 11/05/2020 Transcribed Document [facility] [place] [address] [place] [address] ProviderRoselyn MD [address] [place] [address] Social History Tobacco Use Types Packs/Day Years [...] was drained by Dr. Main Paez in [facility], was purulent, but it has [...] BLOOD LOSS: Approximately 15 to 20 mL. /[id number] Zane Redman MD LSB/AQ / LSB / MODL /[id number] Electronically signed by Yahir Schultz Conversion Sales Representative Door To Door Matthewner at 06/27/2022 8:21 PM CDT documented in this encounter Plan of Treatment Not on file documented as of this encounter Visit Diagnoses Not on filedocumented in this encounter Care Teams Drapery Operator Relationship Specialty Start Date End Date Mari Carrero APRN [address] [address] PCP - General Nurse Practitioner 08/10/23 documented as of this encounter
--- OUTSIDE RECORDS SUMMARY | 2024-09-26 14:22 | XMS_ITS | Encounter Summary ---
Author Organization [employer] ([place], [place], [place], [place]) Address [address] [place] [address] Care Team Providers Care Freight Elevator Erector Name Role Phone Mari Carrero APRN Primary Care Provider Encounter Details Date Type Department Care Team (Late st Contact Info) Description 11/05/2020 Transcribed Document [facility] [place] [facility] [place] [address] ProviderRoselyn MD [address] [place] [address] Social History Tobacco Use Types Packs/Day [...] BUSH /Sex: 1955 Female Med Rec #: [id number] Physician: DONY CERVANTES MD-OBG Financial #: [id number] Pt. Type: O Room/Bed: [facility] Admit/Disch: 11/05/20 09:46:00 - Institution: [facility] Main OR PostOp Case Times Entry 1 In PACU II 11/05/20 15:00:00 Ready for PACU II 11/05/20 15:30:00 Discharge Discharge from PACU 11/05/20 15:45:00 II Last Modified By: KATHLEEN BRAMBILA, RN 11/05/20 16:01:57 [facility] Main OR PostOp Case Times Audit 11/05/20 16:01:57 Wood Fuel Pelletizer: ELDERJM Modifier: ELDERJM <+> 1 Discharge from PACU II 11/05/20 15:47:34 Wood Fuel Pelletizer: [email or web address] Modifier: [email or web address] <+> 1 Ready for PACU II Discharge Finalized By: KATHLEEN BRAMBILA, RN Document Signatures Signed By: KATHLEEN BRAMBILA RN 11/05/20 16:02 documented in this encounter Plan of Treatment Not on file documented as of this encounter Visit Diagnoses Not on filedocumented in this encounter Care Teams Freight Elevator Erector Relationship Specialty Start Date End Date Mari Carrero, SUPERVISOR WELDING EQUIPMENT REPAIRER [address] [address] PCP - General Nurse Practitioner 08/10/23 documented as of this encounter
--- OUTSIDE RECORDS SUMMARY | 2024-09-26 14:22 | XMS_ITS | Encounter Summary ---
Author Organization [employer] ([place], [place], [place], [place]) Address [address] [place] [address] Care Team Providers Care Risk Developer Name Role Phone aMri Carrero APRN Primary Care Provider Encounter Details Date Type Department Care Team (Late st Contact Info) Description 11/05/2020 Transcribed Document [facility] [place] [facility] [place] [address] ProviderRoselyn MD [address] [place] [address] Social History Tobacco Use Types Packs/Day [...] DOMINGUEZ /Sex: 1955 Female Med Rec #: [id number] Physician: DONY CERVANTES MD-OBG Financial #: [id number] Pt. Type: O Room[facility]Bed: [facility] Admit/Disch: 11/05/20 09:46:00 - [place] [facility]Op Case Times Entry 1 In Preop 11/05/20 09:55:00 Ready for Holding n/a Room Patient Ready for 11/05/20 10:30:00 Surgery Patient Out of Preop 11/05/20 12:20:00 Patient Out of n/a Holding Room Last Modified By: Katelyn Ga RN 11/05/20 17:26:05 [facility] PreOp Case Times Audit 11/05/20 17:26:05 Distance Learning Technician: SULMA Modifier: [id number] <+> 1 Patient Out of Preop Finalized By: Katelyn Ga, RN Document Signatures Signed By: Katelyn Ga RN 11/05/20 17:26 documented in this encounter Plan of Treatment Not on file documented as of this encounter Visit Diagnoses Not on filedocumented in this encounter Care Teams Risk Developer Relationship Specialty Start Date End Date Mari Carrero, VISION CARE ASSOCIATE [address] [place] [phone] PCP - General Nurse Practitioner 08/10/23 documented as of this encounter
--- OUTSIDE RECORDS SUMMARY | 2024-09-26 14:22 | XMS_ITS | Encounter Summary ---
Author Organization [employer] ([place], [place], [place], [place]) Address [address] [place] [address] Care Team Providers Care Program Analyst Name Role Phone Mari Carrero APRN Primary Care Provider Encounter Details Date Type Department Care Team (Late st Contact Info) Description 11/05/2020 Transcribed Document [facility] [place] Family Medicine [facility] [place] [address] ProviderRoselyn MD [address] [place] [address] Social History Tobacco Use Types Packs/Day [...] DOMINGUEZ /Sex: 1955 Female Med Rec #: [id number] Physician: DONY CERVANTES MD-OBG Financial #: [id number] Pt. Type: O Room/Bed: [facility] Admit/Disch: 11/05/20 09:46:00 - [place] [facility] [place] Case Attendance Entry 1 Entry 2 Entry 3 Case Attendee DONY CERVANTES MD-OBG ANNI GOODRICH APRN, Brock, Deanna REMELT FURNACE EXPEDITER-ANS Role Performed Surgeon/Proceduralist, REMELT FURNACE EXPEDITER/Nurse Trauma Doctor Scrub, First First Time In 11/05/20 12:28:00 [...] Christianson RN-PATIENT CARE BEDSIDE NON-EXEMPT Role Performed Cell Stripper, First Time In 11/05/20 12:28:00 Time Out 11/05/20 13:56:00 Procedure Mass Excision Genitalia Other Attendee Superficial Wound Closed By: Last Modified By: Brittani Christianson RN-PATIENT CARE BEDSIDE NON-EXEMPT 11/05/20 13:56:02 [facility] IntraOp Case Attendance Audit 11/05/20 13:56:02 Tag Press Operator: [id number] Modifier: [id number] <+> Time Out 1 <*> Procedure Mass Excision Genitalia 2 <+> Time Out 2 <*> Procedure Mass Excision Genitalia 3 <+> Time Out 3 <*> Procedure Mass Excision Genitalia 4 <+> Time Out 4 <*> Procedure Mass Excision Genitalia 11/05/20 13:10:37 Tag Press Operator: [id number] Modifier: [id number] <+> Time In 1 <*> Procedure Mass Excision Genitalia 2 <+> Time In 2 <*> Procedure Mass Excision Genitalia 3 <+> Time In 3 <*> Procedure Mass Excision Genitalia 4 <+> Time In 4 <*> Procedure Mass Excision Genitalia 11/05/20 12:53:31 Tag Press Operator: [id number] Modifier: [id number] <+> 2 Case Attendee <+> 2 Role [...] [facility] IntraOp Case Times Audit 11/05/20 13:55:49 Tag Press Operator: [id number] Modifier: [id number] <+> 1 Out Room Time <+> 1 [...] Patient Transport ANNI GOODRICH APRN, Accompanied by REMELT FURNACE EXPEDITER-ANS, Brittani Christianson RN-PATIENT CARE BEDSIDE NON-EXEMPT Last [...] NON-EXEMPT 11/05/20 13:06:09 [facility] IntraOp General Case Nuclear Reactor Operator 1 Case Information OR OR 04 [facility] [...] 0.5% w/ epinephrine 1:200,000 30ml vial - [id number] Route of TO FIELD Administration Dose Dose [...] Board, Stirrups/Leg Chawla, Boot Positioned By DONY ECRVANTES MD-OBG, ANNI GOODRICH APRN, RAHEEM-MOOSE, Olivia Louis, [...] Intra Op Sign Out Audit 11/05/20 13:55:56 Tag Press Operator: [id number] Modifier: [id number] <+> 1 RN Sign Out Signature Date/Time [...] [facility] IntraOp Surgical Procedures Audit 11/05/20 13:56:01 Tag Press Operator: [id number] Modifier: [id number] <+> 1 Stop 11/05/20 13:09:58 Tag Press Operator: [id number] Modifier: [id number] <+> 1 Start [facility] IntraOp Temp Regulation Devices Entry 1 Temp Regulation Temperature Forced Air Warming Regulation Device device Temperature Upper body Regulation Site Temperature Device HIGH Setting Temperature ANNI GOODRICH APRN, Regulation Device REMELT FURNACE EXPEDITER-ANS Applied by Last Modified By: Brittani Christianson [...] NON-EXEMPT 11/05/20 13:56 Electronically signed by Marion [facility] Conversion Vacuum Forming Machine Operator Cerner at 06/27/2022 8:33 PM CDT documented in this encounter Plan of Treatment Not on file documented as of this encounter Visit Diagnoses Not on filedocumented in this encounter Care Teams Program Analyst Relationship Specialty Start Date End Date Mari Carrero, AVIATION PROGRAM MANAGER [address] [place] [address] PCP - General Nurse Practitioner 08/10/23 documented as of this encounter
--- OUTSIDE RECORDS SUMMARY | 2024-09-26 14:22 | XMS_ITS | Encounter Summary ---
Author Organization [employer] ([place], [place], [place], [place]) Address [address] [place] [address] Care Team Providers Care Textile Supervisor Name Role Phone Mari Carrero APRN Primary Care Provider Encounter Details Date Type Department Care Team (Late st Contact Info) Description 11/05/2020 Transcribed Document [facility] [place] Family Medicine [facility] [place] [address] ProviderRoselyn MD [address] [place] [address] Social History Tobacco Use Types Packs/Day [...] these instructions at home: Medicines ??? Take mwos-rxl-onxzkxm and prescription medicines only as told by [...] and water are not available, use hand manual equipment mechanic. ??? Change your dressing and packing as [...] provider. Document Revised: 01/29/2019 Document Reviewed: 01/29/2019 [employer] Patient Education ? 2020 Elsevier Inc. Pharmacology [...] activities are safe for you. ??? Take nnxi-pad-bklpfql and prescription medicines only as told by [...] provider. Document Revised: 03/03/2018 Document Reviewed: 10/14/2017 [employer] Patient Education ? 2020 [employer] Inc. Procedures Outpatient Surgery, Adult, Care After [...] and water are not available, use hand manual equipment mechanic. ? Change your dressing as told by [...] or a bad smell. Medicines ??? Take iuoq-siv-tzbmrrm and prescription medicines only as told by [...] provider. Document Revised: 05/29/2018 Document Reviewed: 06/20/2016 [employer] Patient Education ? 2020 [employer] Inc. documented in this encounter Plan of Treatment Not on file documented as of this encounter Visit Diagnoses Not on filedocumented in this encounter Care Teams Textile Supervisor Relationship Specialty Start Date End Date Mari Carrero APRN [address] [address] PCP - General Nurse Practitioner 08/10/23 documented as of this encounter
[2024-09-26] MEDS: ERTAPENEM SODIUM 1 GM in 0.9 % SODIUM CHLORIDE 50 ML IV (14:27)
[2024-09-26 14:30] VITALS: BP 120/77; PULSE 93; RESP 16; O2SAT 98
[2024-09-26 15:00] VITALS: BP 113/66; PULSE 73; RESP 16
== END 2024-09-26 15:15 | disposition home or self-care (01) ==
LOC: INF 14:19
PROVIDERS: PCP Nurse Practitioner Family; Visit Provider Nurse Practitioner Family
DX: N39.0 Urinary tract infection, site not specified (principal)
CPT/HCPCS: 96365; J1335

== ENCOUNTER 2024-09-27 14:20 | Outpatient (CLI) | payer MEDICARE, SELFPAY ==
--- OUTSIDE RECORDS SUMMARY | 2024-09-27 14:22 | XMS_ITS | Continuity of Care Document ---
Author Organization [facility]. If a dditional information is needed, contact Health Information Management at [phone] Address [address] [place] [address] Phone Care Team Providers Care Floor Trader Name Role Phone Unavailable Unavailable Unavailable Unavailable [...] Diabetes mellitus Onset:16-Jul-2022 Yovani Helms MD Status:Acute Hypertensive disorder Onset:16-Jul-2022 Yovani Helms MD Status:Acute Functional Status [...] ORAL Daily Start:16-Jul-2022 Comments:17 g PO DAILY omeprazole 40 MG Delayed Rel ease Oral Capsule;40 MG ORAL Two Times a Day Start:16-Jul-2022 Comments:40 mg PO BID furosemide 40 MG Oral Tablet ;60 MG ORAL QAM Start:16-Jul-2022 Comments:60 mg PO QAM rosuvastatin 20 mg tablet;20 MG ORAL At Bedtime Start:16-Jul-2022 Comments:20 mg PO BEDTIME Decara;1250 MCG ORAL Weekly Start:16-Jul-2022 Comments:1250 mcg PO WEEKLY sertraline 50 MG Oral Tablet ;50 MG ORAL Daily Start:16-Jul-2022 Comments:50 mg PO DAILY
--- OUTSIDE RECORDS SUMMARY | 2024-09-27 14:24 | XMS_ITS | Clinical Summary ---
Author Organization [facility] Address [address] [place] [address] Care Team Providers Care Drier And Pulverizer Tender Name Role Phone Reynold Khan MD Primary Care Provider [phone] Allergies Active Allergy Reactions Criticality Noted Date [...] day. Active cholecalciferol (Vitamin D3) 1.25 MG (90856 UT) tablet Take 50,000 Units by mouth [...] No Healthcare Surrogate: Healthcare POA Care Teams Drier And Pulverizer Tender Relationship Specialty Start Date End Date Reynold Khan MD [address] [place] [address] PCP - General 07/25/20
--- OUTSIDE RECORDS SUMMARY | 2024-09-27 14:25 | XMS_ITS | Encounter Summary ---
Author Organization Healthcare Address [address] [place] [address] Care Team Providers Care Literacy Teacher Name Role Phone Reynold Khan MD Primary Care Provider [phone] Encounter Details Date Type Department Care Team (Late st Contact Info) Description 07/19/2022 Lab Requisition [facility] [address] [place] [address] Maxwell Neal MD [address] [place] [address] Encounter for general adult medical [...] Date of Assessment Author Initial/First Attempt Date [address] 07/19/2022 2:0 0 PM EDT Maliha Bond [...] Months) 1 07/19/2022 2:00 PM EDT Maliha Bodn RN Aborted or Self-Interrupted Attempt (Past 3 [...] GENERAL ORDERABLES Final Result Performing Organization Address City/State/[facility] Co de Phone Number [facility]ALTHCARE [facility] [address] [place] [address] documented in this encounter Visit Diagnoses Diagnosis Encounter for general adult medical examination without abnormal findings documented in this encounter Care Teams Literacy Teacher Relationship Specialty Start Date End Date Reynold Khan MD [address] [place] [address] PCP - General 07/25/20 documented as of this encounter
[2024-09-27 14:31] VITALS: BP 131/81; PULSE 78; RESP 16; TEMP 36.8; O2SAT 98
[2024-09-27] MEDS: ERTAPENEM SODIUM 1 GM in 0.9 % SODIUM CHLORIDE 50 ML IV (14:31)
[2024-09-27] MEDS: SODIUM CHLORIDE 0.9% 10ML FLUSH SYRINGE 10 ML IV (14:31)
[2024-09-27 15:06] VITALS: BP 145/79; PULSE 68; RESP 14; TEMP 36.8; O2SAT 98
== END 2024-09-27 15:10 | disposition home or self-care (01) ==
LOC: INF 14:21
PROVIDERS: PCP Nurse Practitioner Family; Visit Provider Nurse Practitioner Family
DX: Z23 Encounter for immunization (principal)
CPT/HCPCS: 96365; J1335

== ENCOUNTER 2024-10-05 12:22 | Outpatient (CLI) | payer MEDICARE, SELFPAY ==
[2024-10-05 16:58] LABS: Microscopic, Urine URINE MICROSCOPIC (MICROSCOPIC)
[2024-10-05 17:20] LABS: Hematocrit 38.9 % (37.0-47.0); Hemoglobin 11.9 g/dL (12.2-16.2); Immature Granulocytes % 0.2 %; Mean Corpuscular HGB Conc 30.6 g/dL (31.8-35.4); Mean Corpuscular Hemoglobin 22.0 pg (27.0-31.2); Mean Corpuscular Volume 71.9 fl (81-99); Nucleated Red Blood Cells % 0 %; Platelet Count 217 K/mm3 (142-424); Red Blood Count 5.41 M/mm3 (4.20-5.40); Red Cell Distribution Width-SD 50.6 fL; White Blood Count 8.2 K/mm3 (4.8-10.8)
[2024-10-05 17:34] LABS: Bilirubin,Urine Negative (Negative); Color,Urine YELLOW (Yellow); Glucose,Urine (UA) 3+ (Negative); Ketones,Urine Negative (Negative); Leukocyte Esterase,Urine Negative (Negative); PH,Urine 6.0 (5.0-8.5); Protein,Urine Negative (Negative); Specific Gravity, Urine 1.020 (1.005-1.030); Urobilinogen,Urine 0.2 EU/dl (0.2)
[2024-10-05 19:30] LABS: Vitamin B12 351 pg/mL (239-931)
[2024-10-05 20:07] LABS: Bacteria,Urine Trace /lpf
[2024-10-05 20:52] LABS: Ferritin 5.56 ng/ml (11.1-264)
--- OUTSIDE RECORDS SUMMARY | 2024-10-08 12:23 | XMS_ITS | Continuity of Care Document ---
Author Organization [facility]. If a dditional information is needed, contact Health Information Management at [phone] Address [address] [place] [address] Phone Care Team Providers Care Quarry Manager Name Role Phone Unavailable Unavailable Unavailable Unavailable [...]
--- OUTSIDE RECORDS SUMMARY | 2024-10-08 12:25 | XMS_ITS | Encounter Summary ---
Author Organization [employer] ([place], [place], [place], [place]) Address [address] [place] [address] Care Team Providers Care Electric Range Servicer Name Role Phone Mari Carrero APRN Primary Care Provider Encounter Details Date Type Department Care Team (Late st Contact Info) Description 11/05/2020 Transcribed Document [facility] [place] Medicine [facility] [place] [address] ProviderRoselyn MD [address] [place] [address] Social History Tobacco Use Types Packs/Day [...] Main OR PostOp Summary Primary Physician: DONY CERVNATES MD-OBG Finalized Date/Time: 11/05/20 16:02:04 Pt. Name: ANN MARIE BUSH /Sex: 1955 Female Med Rec #: [id number] Physician: DONY CERVANTES MD-OBG Financial #: [id number] Pt. Type: O Room/Bed: [facility] Admit/Disch: 11/05/20 09:46:00 - Institution: [facility] Main OR PostOp Case Times Entry 1 In PACU II 11/05/20 15:00:00 Ready for PACU II 11/05/20 15:30:00 Discharge Discharge from PACU 11/05/20 15:45:00 II Last Modified By: KATHLEEN BRAMBILA, RN 11/05/20 16:01:57 [facility] Main OR PostOp Case Times Audit 11/05/20 16:01:57 Municipal Services Manager: ELDERJM Modifier: [email or web address] <+> 1 Discharge from PACU II 11/05/20 15:47:34 Municipal Services Manager: ELDERJM Modifier: [email or web address] <+> 1 Ready for PACU II Discharge Finalized By: KATHLEEN BRAMBILA, RN Document Signatures Signed By: KATHLEEN BRAMBILA RN 11/05/20 16:02 Electronically signed by Yahir Schultz Conversion Instructional Material Director Cerner at 06/27/2022 8:31 PM CDT documented in this encounter Plan of Treatment Not on file documented as of this encounter Visit Diagnoses Not on filedocumented in this encounter Care Teams Electric Range Servicer Relationship Specialty Start Date End Date Mari Carrero, MAJOR ASSEMBLY INSPECTOR [address] [address] PCP - General Nurse Practitioner 08/10/23 documented as of this encounter
--- OUTSIDE RECORDS SUMMARY | 2024-10-08 12:25 | XMS_ITS | Clinical Summary ---
Author Organization [employer] ([place], [place], [place], [place]) Address [address] [place] [address] Care Team Providers Care Fixed Assets Accountant Name Role Phone Mari Carrero EMT DRIVER Primary Care Provider Allergies Active Allergy Reactions [...] Due Influenza High Dose Preservative Free IM (WUN476 ) 03/31/2020 Influenza Quad-qiv Non Pf 01/23/2018 [...] on file 05/24 Educational Attainment Answer Date Silviaon rded Speak language other than Romanian at home Not on file 05/25/2023 Want [...] 08/09/2028 08/10/2023 Colorectal Cancer Screening 08/09/2028 Insurance [facility] MEDICARE ADVANTAGE Care Teams Fixed Assets Accountant Relationship Specialty Start Date End Date Mari Carrero, EMT DRIVER [address] [place] [address] PCP - General Nurse Practitioner 08/10/23
--- OUTSIDE RECORDS SUMMARY | 2024-10-08 12:25 | XMS_ITS | Encounter Summary ---
Author Organization [employer] ([place], [place], [place], [place]) Address [address] [place] [address] Care Team Providers Care Hardwood Finisher Name Role Phone Mari Carrero APRN Primary Care Provider Encounter Details Date Type Department Care Team (Late st Contact Info) Description 11/05/2020 Transcribed Document [facility] [place] [facility] [place] [address] ProviderRoselyn MD [address] [place] [address] Social History Tobacco Use Types [...] (LOW) Oxygen Therapy Mode : Room air lAisha Munoz Rn - 11/05/2020 10:40 EDT Pain Assessment Pain Assessment : Initial assessment Pain Scale Used : 0-10 Scale Pain Radiation : No Short, Alisha D, Rn - 11/05/2020 10:40 EDT Height and Weight, Clinical Dosing Height Source : Stated Height Entry Format : [place] Height, Feet : 5 ft(Converted to: 152 cm, 60 Inch) Height, Inches : 2 Inch(Converted to: 0 ft 2 Inch, 5.08 cm) Clinical Height : 157.48 cm Weight Source : Standing scale Weight Entry Format : [place] Clinical Dosing Weight : 85.91 kg Weight, Pounds : 189 lb Body Surface Area (BSA) : 1.87 m2 Body Mass Index : 34.6 kg/m2 (HI) [place] Body Weight : 50 kg Alisha Munoz [...] (Last Updated: 10/11/2014 11:14:46 EDT by Rima oGtti RN) Infectious Disease History Has the patient [...] Alisha Munoz Rn - 11/05/2020 10:40 EDT [place] Suicide Severity Rating Scale (C-SSRS) CSSRS Past [...] Obtained From : Patient Primary Language : Angolan Communication Barrier : None Preparole Counseling Aide Needed : No Alisha Munoz Rn - [...] on filedocumented in this encounter Care Teams Hardwood Finisher Relationship Specialty Start Date End Date Mari Carrero, MARTIR [address] [place] [address] PCP - General Nurse Practitioner 08/10/23 documented as of this encounter
--- OUTSIDE RECORDS SUMMARY | 2024-10-08 12:25 | XMS_ITS | Encounter Summary ---
Author Organization [employer] ([place], [place], [place], [place]) Address [address] [place] [address] Care Team Providers Care Heavy Equipment Sales Associate Name Role Phone Mari Carrero APRN Primary Care Provider Encounter Details Date Type Department Care Team (Late st Contact Info) Description 11/05/2020 Transcribed Document [facility] [place] [facility] [place] [address] ProviderRoselyn MD [address] [place] [address] Social History Tobacco Use Types Packs/Day [...] these instructions at home: Medicines ??? Take hhob-mnc-ymguboh and prescription medicines only as told by [...] and water are not available, use hand assembler dc field yoke. ??? Change your dressing and packing as [...] provider. Document Revised: 01/29/2019 Document Reviewed: 01/29/2019 NONO Patient Education ? 2020 Elsevier Inc. Pharmacology [...] activities are safe for you. ??? Take pabz-iek-mybilwm and prescription medicines only as told by [...] provider. Document Revised: 03/03/2018 Document Reviewed: 10/14/2017 NONO Patient Education ? 2020 NONO Inc. Procedures Outpatient Surgery, Adult, Care After [...] and water are not available, use hand assembler dc field yoke. ? Change your dressing as told by [...] or a bad smell. Medicines ??? Take oprg-kmg-qnljpnv and prescription medicines only as told by [...] provider. Document Revised: 05/29/2018 Document Reviewed: 06/20/2016 NONO Patient Education ? 2020 NON[employer] Inc. documented in this encounter Plan of Treatment Not on file documented as of this encounter Visit Diagnoses Not on filedocumented in this encounter Care Teams Heavy Equipment Sales Associate Relationship Specialty Start Date End Date Mari Carrero APRN [address] [address] PCP - General Nurse Practitioner 08/10/23 documented as of this encounter
--- OUTSIDE RECORDS SUMMARY | 2024-10-08 12:25 | XMS_ITS | Referral Summary ---
Author Organization [employer] ([place], [place], [place], [place]) Address [address] [place] [address] Care Team Providers Care Glass Cleaner Name Role Phone Mari Carrero OFFICE CLERK ROUTINE Primary Care Provider Allergies Active Allergy Reactions [...] Due Influenza High Dose Preservative Free IM ([id number] ) 03/31/2020 Influenza Quad-qiv Non Pf 01/23/2018 [...] Date Silviano rded Speak language other than Croatian at home Not on file 05/25/2023 Want [...] Plan of Treatment Not on file Insurance [facility] MEDICARE ADVANTAGE Care Teams Glass Cleaner Relationship Specialty Start Date End Date Mari Carrero, OFFICE CLERK ROUTINE [address] [place] [address] PCP - General Nurse Practitioner 08/10/23
--- OUTSIDE RECORDS SUMMARY | 2024-10-08 12:25 | XMS_ITS | Encounter Summary ---
Author Organization [employer] ([place], [place], [place], [place]) Address [address] [place] [address] Care Team Providers Care Singe Winder Name Role Phone Mari Carrero APRN Primary Care Provider Encounter Details Date Type Department Care Team (Late st Contact Info) Description 11/04/2020 Transcribed Document [facility] [place] [address] [place] [address] ProviderRoselyn MD [address] [place] [address] Social History Tobacco Use Types Packs/Day Years [...] to me by Dr. Main Paez in [place], [place], with a problem of an inflammatory [...] SOCIAL HISTORY: The patient is a one ivuo-mtu-fkx cigarette smoker. PHYSICAL EXAMINATION: GENERAL: Shows a [...] extension. ASSESSMENT: As above. PLAN: As above. /[id number] MD ANG Del AngelB/PER / LSBianca / MODL Electronically signed by Marion [facility] Conversion Furniture Refinisher Cerner at 06/27/2022 8:21 PM CDT documented in this encounter Plan of Treatment Not on file documented as of this encounter Visit Diagnoses Not on filedocumented in this encounter Care Teams Singe Winder Relationship Specialty Start Date End Date Mari Carrero, GLOBAL MARKETING MANAGER [address] [address] PCP - General Nurse Practitioner 08/10/23 documented as of this encounter
--- OUTSIDE RECORDS SUMMARY | 2024-10-08 12:25 | XMS_ITS | Encounter Summary ---
Author Organization [employer] ([place], [place], [place], [place]) Address [address] [place] [address] Care Team Providers Care Asian Studies Professor Name Role Phone Mari Carrero APRN Primary Care Provider [phone] Encounter Details Date Type Department Care Team (Late st Contact Info) Description 11/05/2020 Transcribed Document [facility] [place] [facility] [place] [address] ProviderRoselyn MD [address] [place] [address] Social History Tobacco Use Types Packs/Day [...] BUSHE /Sex: 1955 Female Med Rec #: [id number] Physician: DONY CERVANTES MD-OBG Financial #: [id number] Pt. Type: O Room/Bed: [facility] Admit/Disch: 11/05/20 09:46:00 - Institution[place] [facility] [place] PACU Case Times Entry 1 In PACU I 11/05/20 13:56:00 Ready for PACU 11/05/20 14:55:00 Discharge Discharge from PACU 11/05/20 14:55:00 I Last Modified By: BLANCA KEYS RN 11/05/20 15:08:20 Finalized By: BLANCA KEYS RN Document Signatures Signed By: BLANCA KEYS RN 11/05/20 15:08 Electronically signed by Marion [facility] Conversion Paint Mixer Cerner at 06/27/2022 8:34 PM CDT documented in this encounter Plan of Treatment Not on file documented as of this encounter Visit Diagnoses Not on filedocumented in this encounter Care Teams Asian Studies Professor Relationship Specialty Start Date End Date Mari Carrero, ASSESSMENT CONSULTANT [address] [place] [address] PCP - General Nurse Practitioner 08/10/23 documented as of this encounter
--- OUTSIDE RECORDS SUMMARY | 2024-10-08 12:25 | XMS_ITS | Encounter Summary ---
Author Organization [employer] ([place], [place], [place], [place]) Address [address] [place] [address] Care Team Providers Care Photograph Mounter Name Role Phone Mari Carrero APRN Primary Care Provider Encounter Details Date Type Department Care Team (Late st Contact Info) Description 11/05/2020 Transcribed Document [facility] [place] Family Medicine Counts include 234 beds at the [facility] [place] [address] ProviderRoselyn MD [address] [place] [address] Social History Tobacco Use Types Packs/Day [...] Roselyn ProviderMD - 11/05/2020 3:09 PM CDT [address] [address] ANN MARIE BUSH :1955 Visit [...] EDT Where: [address] [place] [address]- [facility] (1) Medications What How Much When Instructions Next Dose acetaminophen-hydrocodone ([place] 10 mg-325 mg oral tablet) 1 Tablet(s) [...] (fluticasone 50 mcg/ inh nasal spray) 2 [place](s) Nasal Every Day furosemide (furosemide 40 mg [...] these instructions at home: Medicines ??? Take ffws-kue-nywnbio and prescription medicines only as told by [...] and water are not available, use hand dish washer. ??? Change your dressing and packing as [...] provider. Document Revised: 01/29/2019 Document Reviewed: 01/29/2019 [employer] Patient Education ?? 2020 VR1 Inc. Outpatient Surgery, Adult, Care After These [...] and water are not available, use hand dish washer. ? Change your dressing as told by [...] or a bad smell. Medicines ??? Take iufg-ufa-pztkcxc and prescription medicines only as told by [...] provider. Document Revised: 05/29/2018 Document Reviewed: 06/20/2016 [employer] Patient Education ?? 2020 Elsevier Inc. General [...] activities are safe for you. ??? Take mayn-lho-eojrlil and prescription medicines only as told by [...] provider. Document Revised: 03/03/2018 Document Reviewed: 10/14/2017 VR1 Patient Education ?? 2020 ConceptoMed. Emergency Awareness and Preventative Care STROKE is [...] Assistance with quitting is available by contacting 7-387-QTGU-NOW. This is a free resource providing counseling, [...] range between ( 1.0 and 7.0 ) [place] #: 0.23 K/uL -- Normal range between ( 0.24 and 0.82 ) Eos #: 0.03 K/uL -- Normal range between ( 0.04 and 0.54 ) [place] %: 3.2 % -- Normal range between [...] was given the opportunity to ask questions. Patient/Glass Presser Name: Patient/Glass Presser Signature: Relationship to Patient: Clinician/Hospital Glass Presser Signature: Date: documented in this encounter Plan of Treatment Not on file documented as of this encounter Visit Diagnoses Not on filedocumented in this encounter Care Teams Photograph Mounter Relationship Specialty Start Date End Date Mari Carrero, CARE PROFESSIONAL [address] [place] [address] PCP - General Nurse Practitioner 08/10/23 documented as of this encounter
--- OUTSIDE RECORDS SUMMARY | 2024-10-08 12:25 | XMS_ITS | Encounter Summary ---
Author Organization [employer] ([place], [place], [place], [place]) Address [address] [place] [address] Care Team Providers Care Documentation Analyst Name Role Phone Mari Carrero APRN Primary Care Provider Encounter Details Date Type Department Care Team (Late st Contact Info) Description 11/05/2020 Transcribed Document [facility] [place] [address] ProviderRoselyn MD [address] [place] [address] Social History Tobacco Use Types Packs/Day [...] DOMINGUEZ /Sex: 1955 Female Med Rec #: [id number] Physician: DONY CERVANTES MD-OBG Financial #: [id number] Pt. Type: O Room/Bed: [facility] Admit/Disch: 11/05/20 09:46:00 - Institution: [facility] [place] IntraOp Case Attendance Entry 1 Entry 2 Entry 3 Case Attendee DONY CERVANTES MD-OBG ANNI GOODRICH APRN, Brock, Deanna TIN FLOPPER-ANS Role Performed Surgeon/Proceduralist, TIN FLOPPER/Nurse Convict Guard Scrub, First First Time In 11/05/20 12:28:00 [...] 13:56:02 13:56:02 Entry 4 Case Attendee Brittani Chrsitianson RN-PATIENT CARE BEDSIDE NON-EXEMPT Role Performed Bookbinding Machine Operator, First Time In 11/05/20 12:28:00 Time Out 11/05/20 13:56:00 Procedure Mass Excision Genitalia Other Attendee Superficial Wound Closed By: Last Modified By: Brittani Christianson RN-PATIENT CARE BEDSIDE NON-EXEMPT 11/05/20 13:56:02 [facility] IntraOp Case Attendance Audit 11/05/20 13:56:02 Health Records Technology Teacher: [id number] Modifier: [id number] <+> Time Out 1 <*> Procedure Mass Excision Genitalia 2 <+> Time Out 2 <*> Procedure Mass Excision Genitalia 3 <+> Time Out 3 <*> Procedure Mass Excision Genitalia 4 <+> Time Out 4 <*> Procedure Mass Excision Genitalia 11/05/20 13:10:37 Health Records Technology Teacher: [id number] Modifier: [id number] <+> Time In 1 <*> Procedure Mass Excision Genitalia 2 <+> Time In 2 <*> Procedure Mass Excision Genitalia 3 <+> Time In 3 <*> Procedure Mass Excision Genitalia 4 <+> Time In 4 <*> Procedure Mass Excision Genitalia 11/05/20 12:53:31 Health Records Technology Teacher: [id number] Modifier: [id number] <+> 2 Case Attendee <+> 2 Role [...] SJE IntraOp Case Times Audit 11/05/20 13:55:49 Health Records Technology Teacher: [id number] Modifier: [id number] <+> 1 Out Room Time <+> 1 [...] Patient Transport ANNI GOODRICH APRN, Accompanied by TIN FLOPPER-ANS, Brittani Christianson RN-PATIENT CARE BEDSIDE NON-EXEMPT Last [...] NON-EXEMPT 11/05/20 13:06:09 SJE IntraOp General Case Counter Waiter 1 Case Information OR OR 04 SJE [...] Yes Video No Last Modified By: Brittani Chritsianson RN-PATIENT CARE BEDSIDE NON-EXEMPT 11/05/20 13:08:13 SJE IntraOp Medication Admin Entry 1 Medication/Irrigant Marcaine 0.5% w/ epinephrine 1:200,000 30ml vial - [id number] Route of TO FIELD Administration Dose Dose [...] Intra Op Sign Out Audit 11/05/20 13:55:56 Health Records Technology Teacher: [id number] Modifier: [id number] <+> 1 RN Sign Out Signature Date/Time [...] SJE IntraOp Surgical Procedures Audit 11/05/20 13:56:01 Health Records Technology Teacher: [id number] Modifier: [id number] <+> 1 Stop 11/05/20 13:09:58 Health Records Technology Teacher: [id number] Modifier: [id number] <+> 1 Start SJE IntraOp Temp Regulation Devices Entry 1 Temp Regulation Temperature Forced Air Warming Regulation Device device Temperature Upper body Regulation Site Temperature Device HIGH Setting Temperature ANNI GOODRICH APRN, Regulation Device TIN FLOPPER-ANS Applied by Last Modified By: Brittani Christianson [...] NON-EXEMPT 11/05/20 13:56 Electronically signed by Marion [facility] Conversion Needle Loom Tender Cerner at 06/27/2022 8:33 PM CDT documented in this encounter Plan of Treatment Not on file documented as of this encounter Visit Diagnoses Not on filedocumented in this encounter Care Teams Documentation Analyst Relationship Specialty Start Date End Date Mari Carrero, PROPOSAL CONSULTANT [address] [place] [address] PCP - General Nurse Practitioner 08/10/23 documented as of this encounter
--- OUTSIDE RECORDS SUMMARY | 2024-10-08 12:25 | XMS_ITS | Clinical Summary ---
Author Organization [facility] Address [address] [place] [address] Care Team Providers Care Punch Molder Name Role Phone Reynold Khan MD Primary Care Provider +1- [phone] Allergies Active Allergy Reactions Criticality Noted Date [...] day. Active cholecalciferol (Vitamin D3) 1.25 MG (18150 UT) tablet Take 50,000 Units by mouth [...] No Healthcare Surrogate: Healthcare POA Care Teams Punch Molder Relationship Specialty Start Date End Date Reynold Khan MD [address] [place] [address] PCP - General 07/25/20
--- OUTSIDE RECORDS SUMMARY | 2024-10-08 12:25 | XMS_ITS | Encounter Summary ---
Author Organization [facility] Address [address] [place] [address] Care Team Providers Care Roller Shop Utility Worker Name Role Phone Reynold Khan MD Primary Care Provider +1- [phone] Encounter Details Date Type Department Care Team (Late st Contact Info) Description 07/19/2022 Lab Requisition [facility] [address] [place] [address] Maxwell Neal MD [address] [place] [address] Encounter for general adult medical [...] Date of Assessment Author Initial/First Attempt Date 65286 07/19/2022 2:0 0 PM EDT Maliha Bond [...] GENERAL ORDERABLES Final Result Performing Organization Address City/State/[facility] Co de Phone Number HEALTHCARE LAB [address] [place] [address] documented in this encounter Visit Diagnoses Diagnosis Encounter for general adult medical examination without abnormal findings documented in this encounter Care Teams Roller Shop Utility Worker Relationship Specialty Start Date End Date Reynold Khan MD [address] [place] [address] PCP - General 07/25/20 documented as of this encounter
--- OUTSIDE RECORDS SUMMARY | 2024-10-08 12:25 | XMS_ITS | Encounter Summary ---
Author Organization [employer] ([place], [place], [place], [place]) Address [address] [place] [address] Care Team Providers Care Shipping Hand Name Role Phone Mari Carrero APRN Primary Care Provider Encounter Details Date Type Department Care Team (Late st Contact Info) Description 11/05/2020 Transcribed Document [facility] [place] [facility] [place] [address] ProviderRoselyn MD [address] [place] [address] Social History Tobacco Use Types Packs/Day [...] DOMINGUEZ /Sex: 1955 Female Med Rec #: [id number] Physician: DONY CERVANTES MD-OBG Financial #: [id number] Pt. Type: O Room/Bed: [facility] Admit/Disch: 11/05/20 09:46:00 - Institution: [facility] [place] PreOp Case Times Entry 1 In Preop 11/05/20 09:55:00 Ready for Holding n/a Room Patient Ready for 11/05/20 10:30:00 Surgery Patient Out of Preop 11/05/20 12:20:00 Patient Out of n/a Holding Room Last Modified By: Katelyn Ga RN 11/05/20 17:26:05 DERRICK PreOp Case Times Audit 11/05/20 17:26:05 Onyx Chip Terrazzo Worker: [email or web address] Modifier: [id number] <+> 1 Patient Out of Preop Finalized By: Katelyn Ga, RN Document Signatures Signed By: Katelyn Ga RN 11/05/20 17:26 documented in this encounter Plan of Treatment Not on file documented as of this encounter Visit Diagnoses Not on filedocumented in this encounter Care Teams Shipping Hand Relationship Specialty Start Date End Date Mari Carrero, BRASS AND WIND INSTRUMENT REPAIRER [address] [id number] PCP - General Nurse Practitioner 08/10/23 documented as of this encounter
--- OUTSIDE RECORDS SUMMARY | 2024-10-08 12:25 | XMS_ITS | Encounter Summary ---
Author Organization [employer] ([place], [place], [place], [place]) Address [address] [place] [address] Care Team Providers Care Medicine Worker Name Role Phone Mari Carrero APRN Primary Care Provider Encounter Details Date Type Department Care Team (Late st Contact Info) Description 11/05/2020 Transcribed Document [facility] [place] Family Medicine [address] [place] [address] ProviderRoselyn MD [address] [place] [address] Social History Tobacco Use Types Packs/Day [...] was drained by Dr. Main Paez in [facility], was purulent, but it has been present [...] BLOOD LOSS: Approximately 15 to 20 mL. /[id number] Zane Redman MD LSB/AQ / LSB / MODL /[id number] documented in this encounter Plan of Treatment Not on file documented as of this encounter Visit Diagnoses Not on filedocumented in this encounter Care Teams Medicine Worker Relationship Specialty Start Date End Date Mari Carrero APRN [address] [address] PCP - General Nurse Practitioner 08/10/23 documented as of this encounter
== END 2024-10-05 23:59 | disposition home or self-care (01) ==
LOC: LAB.DROPOF 10-08 12:22
PROVIDERS: PCP Nurse Practitioner Family; Visit Provider Nurse Practitioner Family
DX: N39.0 Urinary tract infection, site not specified (principal); D50.9 Iron deficiency anemia, unspecified
CPT/HCPCS: 81001; 82607; 82728; 85025; 87086

== ENCOUNTER 2024-10-08 19:52 | Outpatient (CLI) | payer MEDICARE, SELFPAY ==
--- OUTSIDE RECORDS SUMMARY | 2024-10-08 19:55 | XMS_ITS | Encounter Summary ---
Author Organization [facility] Address [address] [place] [address] Care Team Providers Care Lining Feller Name Role Phone Reynold Khan MD Primary Care Provider +1- [phone] Encounter Details Date Type Department Care Team (Late st Contact Info) Description 07/19/2022 Lab Requisition [facility] [address] [place] [address] Maxwell Neal MD [address] [place] [address] Encounter for general adult medical [...] Date of Assessment Author Initial/First Attempt Date [address] 07/19/2022 2:0 0 PM EDT Maliha Bond [...] GENERAL ORDERABLES Final Result Performing Organization Address City/State/[facility] Co de Phone Number HEALTHCARE LAB [address] [place] [address] documented in this encounter Visit Diagnoses Diagnosis Encounter for general adult medical examination without abnormal findings documented in this encounter Care Teams Lining Feller Relationship Specialty Start Date End Date Reynold Khan MD [address] [place] [address] PCP - General 07/25/20 documented as of this encounter
--- OUTSIDE RECORDS SUMMARY | 2024-10-08 19:55 | XMS_ITS | Encounter Summary ---
Author Organization [employer] ([place], [place], [place], [place]) Address [address] [place] [address] Care Team Providers Care Doll Wig Hackler Name Role Phone Mari Carrero APRN Primary Care Provider Encounter Details Date Type Department Care Team (Late st Contact Info) Description 11/05/2020 Transcribed Document [facility] [place] Family Medicine [address] [place] [address] ProviderRoselyn MD [address] [place] [address] Social History Tobacco Use Types Packs/Day [...] was drained by Dr. Main Paez in [facility], was purulent, but it has been present [...] BLOOD LOSS: Approximately 15 to 20 mL. /[id number] Zane Redman MD LSB/AQ / LSB / MODL /[id number] documented in this encounter Plan of Treatment Not on file documented as of this encounter Visit Diagnoses Not on filedocumented in this encounter Care Teams Doll Wig Hackler Relationship Specialty Start Date End Date Mari Carrero APRN [address] [address] PCP - General Nurse Practitioner 08/10/23 documented as of this encounter
--- OUTSIDE RECORDS SUMMARY | 2024-10-08 19:55 | XMS_ITS | Encounter Summary ---
Author Organization [employer] ([place], [place], [place], [place]) Address [address] [place] [address] Care Team Providers Care Sonar Technician Name Role Phone Mari Carrero APRN Primary Care Provider Encounter Details Date Type Department Care Team (Late st Contact Info) Description 11/04/[address] [facility] [place] Family Medicine [address] [place] [address] ProviderRoselyn MD [address] [place] [id number] Social History Tobacco Use Types Packs/Day Years [...] to me by Dr. Main Paez in [place], [place], with a problem of an inflammatory [...] SOCIAL HISTORY: The patient is a one xgwd-qcb-hzs cigarette smoker. PHYSICAL EXAMINATION: GENERAL: Shows a [...] extension. ASSESSMENT: As above. PLAN: As above. /[id number] MD ANG Del AngelB/PER / LSBianca / MODL documented in this encounter Plan of Treatment Not on file documented as of this encounter Visit Diagnoses Not on filedocumented in this encounter Care Teams Sonar Technician Relationship Specialty Start Date End Date Mari Carrero, DIETETIC ASSISTANT [address] [address] PCP - General Nurse Practitioner 08/10/23 documented as of this encounter
--- OUTSIDE RECORDS SUMMARY | 2024-10-08 19:55 | XMS_ITS | Referral Summary ---
Author Organization [employer] ([place], [place], [place], [place]) Address [address] [place] [address] Care Team Providers Care Procurement Cost Coordinator Name Role Phone Mari Carrero GEOLOGY SCIENTIST Primary Care Provider Allergies Active Allergy Reactions [...] Due Influenza High Dose Preservative Free IM ([id number] ) 03/31/2020 Influenza Quad-qiv Non Pf 01/23/2018 [...] Date Silviano rded Speak language other than Argentine at home Not on file 05/25/2023 Want [...] Plan of Treatment Not on file Insurance [facility] MEDICARE ADVANTAGE Care Teams Procurement Cost Coordinator Relationship Specialty Start Date End Date Mari Carrero, GEOLOGY SCIENTIST [address] [place] [address] PCP - General Nurse Practitioner 08/10/23
--- OUTSIDE RECORDS SUMMARY | 2024-10-08 19:55 | XMS_ITS | Clinical Summary ---
Author Organization [employer] ([place], [place], [place], [place]) Address [address] [place] [address] Care Team Providers Care Software Recruiter Name Role Phone Mari Carrero LUBRICATING SPECIALIST Primary Care Provider Allergies Active Allergy [...] Due Influenza High Dose Preservative Free IM ([id number] ) 03/31/2020 Influenza Quad-qiv Non Pf 01/23/2018 [...] Date Silviano rded Speak language other than Wallisian at home Not on file 05/25/2023 Want [...] 08/09/2028 08/10/2023 Colorectal Cancer Screening 08/09/2028 Insurance [facility] MEDICARE ADVANTAGE Care Teams Software Recruiter Relationship Specialty Start Date End Date Mari Carrero, LUBRICATING SPECIALIST [address] [place] [address] PCP - General Nurse Practitioner 08/10/23
--- OUTSIDE RECORDS SUMMARY | 2024-10-08 19:55 | XMS_ITS | Clinical Summary ---
Author Organization [facility] Address [address] [place] [address] Care Team Providers Care Manager Career Name Role Phone Reynold Khan MD Primary Care Provider +1- [phone] Allergies Active Allergy Reactions Criticality Noted Date [...] day. Active cholecalciferol (Vitamin D3) 1.25 MG (32300 UT) tablet Take 50,000 Units by mouth [...] No Healthcare Surrogate: Healthcare POA Care Teams Manager Career Relationship Specialty Start Date End Date Reynold Khan MD [address] [place] [address] PCP - General 07/25/20
--- OUTSIDE RECORDS SUMMARY | 2024-10-08 19:55 | XMS_ITS | Encounter Summary ---
Author Organization [employer] ([place], [place], [place], [place]) Address [address] [place] [address] Care Team Providers Care Business Systems Consultant Name Role Phone Mari Carrero APRN Primary Care Provider [phone] Encounter Details Date Type Department Care Team (Late st Contact Info) Description 11/05/2020 Transcribed Document [facility] [place] Family Medicine [facility] [place] [address] ProviderRoselyn MD [address] [place] [address] Social History Tobacco Use Types Packs/Day [...] DOMINGUEZ /Sex: 1955 Female Med Rec #: [id number] Physician: DONY CERVANTES MD-OBG Financial #: [id number] Pt. Type: O Room/Bed: [facility] Admit/Disch: 11/05/20 09:46:00 - Institution: [facility] [place] PreOp Case Times Entry 1 In Preop 11/05/20 09:55:00 Ready for Holding n/a Room Patient Ready for 11/05/20 10:30:00 Surgery Patient Out of Preop 11/05/20 12:20:00 Patient Out of n/a Holding Room Last Modified By: Katelyn Ga RN 11/05/20 17:26:05 DERRICK PreOp Case Times Audit 11/05/20 17:26:05 Physical Anthropologist: SULMA Modifier: [id number] <+> 1 Patient Out of Preop Finalized By: Katelyn Ga, RN Document Signatures Signed By: Katelyn Ga RN 11/05/20 17:26 documented in this encounter Plan of Treatment Not on file documented as of this encounter Visit Diagnoses Not on filedocumented in this encounter Care Teams Business Systems Consultant Relationship Specialty Start Date End Date Mari Carrero, AGRONOMY TEACHER [address] [phone] PCP - General Nurse Practitioner 08/10/23 documented as of this encounter
--- OUTSIDE RECORDS SUMMARY | 2024-10-08 19:55 | XMS_ITS | Encounter Summary ---
Author Organization [employer] ([place], [place], [place], [place]) Address [address] [place] [address] Care Team Providers Care Wrapping Clerk Name Role Phone Mari Carrero APRN Primary Care Provider Encounter Details Date Type Department Care Team (Late st Contact Info) Description 11/05/[address] [facility] [place] Family Medicine [facility] [place] [address] ProviderRoselyn MD [address] [place] [address] Social History Tobacco Use Types Packs/Day [...] these instructions at home: Medicines ??? Take ravs-epy-pzhxqit and prescription medicines only as told by [...] and water are not available, use hand business team leader. ??? Change your dressing and packing as [...] provider. Document Revised: 01/29/2019 Document Reviewed: 01/29/2019 idio Patient Education ? 2020 [employer] Inc[employer] Pharmacology [...] activities are safe for you. ??? Take cpgw-rie-nfliglz and prescription medicines only as told by [...] provider. Document Revised: 03/03/2018 Document Reviewed: 10/14/2017 idio Patient Education ? 2020 [employer] Procedures Outpatient Surgery, Adult, Care After [...] and water are not available, use hand business team leader. ? Change your dressing as told by [...] or a bad smell. Medicines ??? Take vzcf-fek-mvkhscc and prescription medicines only as told by [...] provider. Document Revised: 05/29/2018 Document Reviewed: 06/20/2016 idio Patient Education ? 2020 [employer] documented in this encounter Plan of Treatment Not on file documented as of this encounter Visit Diagnoses Not on filedocumented in this encounter Care Teams Wrapping Clerk Relationship Specialty Start Date End Date Mari Carrero APRN [address] [address] PCP - General Nurse Practitioner 08/10/23 documented as of this encounter
--- OUTSIDE RECORDS SUMMARY | 2024-10-08 19:56 | XMS_ITS | Encounter Summary ---
Author Organization [employer] ([place], [place], [place], [place]) Address [address] [place] [address] Care Team Providers Care Painter Touch Up Name Role Phone Mari Carrero APRN Primary Care Provider Encounter Details Date Type Department Care Team (Late st Contact Info) Description 11/05/[address] [facility] [place] Family Medicine [facility] [place] [address] ProviderRoselyn MD [address] [place] [address] Social History Tobacco Use Types Packs/Day [...] DOMINGUEZ /Sex: 1955 Female Med Rec #: [id number] Physician: DONY CERVANTES MD-OBG Financial #: [id number] Pt. Type: O Room/Bed: [facility] Admit/Disch: 11/05/20 09:46:00 - Institution: [facility] [place] IntraOp Case Attendance Entry 1 Entry 2 Entry 3 Case Attendee DONY CERVANTES MD-OBG ANNI GOODRICH APRN, Brock, Deanna DESK OFFICER-ANS Role Performed Surgeon/Proceduralist, DESK OFFICER/Nurse Zoning Assistant Scrub, First First Time In 11/05/20 [...] Christianson RN-PATIENT CARE BEDSIDE NON-EXEMPT Role Performed Repair Armature Winder Helper, First Time In 11/05/20 12:28:00 Time Out 11/05/20 13:56:00 Procedure Mass Excision Genitalia Other Attendee Superficial Wound Closed By: Last Modified By: Brittani Christianson RN-PATIENT CARE BEDSIDE NON-EXEMPT 11/05/20 13:56:02 S[facility] IntraOp Case Attendance Audit 11/05/20 13:56:02 Manager Child: [id number] Modifier: [id number] <+> Time Out 1 <*> Procedure Mass Excision Genitalia 2 <+> Time Out 2 <*> Procedure Mass Excision Genitalia 3 <+> Time Out 3 <*> Procedure Mass Excision Genitalia 4 <+> Time Out 4 <*> Procedure Mass Excision Genitalia 11/05/20 13:10:37 Manager Child: [id number] Modifier: [id number] <+> Time In 1 <*> Procedure Mass Excision Genitalia 2 <+> Time In 2 <*> Procedure Mass Excision Genitalia 3 <+> Time In 3 <*> Procedure Mass Excision Genitalia 4 <+> Time In 4 <*> Procedure Mass Excision Genitalia 11/05/20 12:53:31 Manager Child: [id number] Modifier: [id number] <+> 2 Case Attendee <+> 2 Role [...] SJE IntraOp Case Times Audit 11/05/20 13:55:49 Manager Child: [id number] Modifier: [id number] <+> 1 Out Room Time <+> 1 [...] Patient Transport ANNI GOODRICH APRN, Accompanied by DESK OFFICER-ANS, Brittani Christianson RN-PATIENT CARE BEDSIDE NON-EXEMPT Last [...] NON-EXEMPT 11/05/20 13:06:09 SJE IntraOp General Case Paper Bags Sewing Machine Operator 1 Case Information OR OR 04 [...] 0.5% w/ epinephrine 1:200,000 30ml vial - [id number] Route of TO FIELD Administration Dose Dose [...] Intra Op Sign Out Audit 11/05/20 13:55:56 Manager Child: [id number] Modifier: [id number] <+> 1 RN Sign Out Signature Date/Time [...] SJE IntraOp Surgical Procedures Audit 11/05/20 13:56:01 Manager Child: [id number] Modifier: [id number] <+> 1 Stop 11/05/20 13:09:58 Manager Child: [id number] Modifier: [id number] <+> 1 Start SJE IntraOp Temp Regulation Devices Entry 1 Temp Regulation Temperature Forced Air Warming Regulation Device device Temperature Upper body Regulation Site Temperature Device HIGH Setting Temperature ANNI GOODRICH APRN, Regulation Device DESK OFFICER-ANS Applied by Last Modified By: Brittani Christianson [...] NON-EXEMPT 11/05/20 13:56 Electronically signed by Marion [facility] Conversion Explosives Engineer Cerner at 06/27/2022 8:33 PM CDT documented in this encounter Plan of Treatment Not on file documented as of this encounter Visit Diagnoses Not on filedocumented in this encounter Care Teams Painter Touch Up Relationship Specialty Start Date End Date Mari Carrero, FLORAL DEPARTMENT SPECIALIST [address] [place] [address] PCP - General Nurse Practitioner 08/10/23 documented as of this encounter
--- OUTSIDE RECORDS SUMMARY | 2024-10-08 19:56 | XMS_ITS | Encounter Summary ---
Author Organization [employer] ([place], [place], [place], [place]) Address [address] [place] [address] Care Team Providers Care Oxygen Equipment Technician Name Role Phone Mari Carrero APRN Primary Care Provider Encounter Details Date Type Department Care Team (Late st Contact Info) Description 11/05/2020 Transcribed Document [facility] [place] [facility] [place] [address] ProviderRoselyn MD [address] [place] [address] Social History Tobacco Use Types [...] Source : Stated Height Entry Format : Fries Height, Feet : 5 ft(Converted to: 152 cm, 60 Inch) Height, Inches : 2 Inch(Converted to: 0 ft 2 Inch, 5.08 cm) Clinical Height : 157.48 cm Weight Source : Standing scale Weight Entry Format : Fries Clinical Dosing Weight : 85.91 kg Weight, Pounds : 189 lb Body Surface Area (BSA) : 1.87 m2 Body Mass Index : 34.6 kg/m2 ([place]) [place] Body Weight : 50 kg Alisha Munoz [...] Alisha Munoz Rn - 11/05/2020 10:40 EDT [place] Suicide Severity Rating Scale (C-SSRS) CSSRS Past [...] Preferences Family : Printed materials, Verbal explanation lAisha Munoz Rn - 11/05/2020 10:40 EDT Education [...] Obtained From : Patient Primary Language : Algerian Communication Barrier : None Internet Media Planner Needed : No Alisha Munoz Rn - [...] on filedocumented in this encounter Care Teams Oxygen Equipment Technician Relationship Specialty Start Date End Date Mari Carrero, MARTIR [address] [place] [address] PCP - General Nurse Practitioner 08/10/23 documented as of this encounter
--- OUTSIDE RECORDS SUMMARY | 2024-10-08 19:56 | XMS_ITS | Encounter Summary ---
Author Organization [employer] ([place], [place], [place], [place]) Address [address] [place] [address] Care Team Providers Care Fitness/Wellness Director Name Role Phone Mari Carrero APRN Primary Care Provider Encounter Details Date Type Department Care Team (Late st Contact Info) Description 11/05/2020 Transcribed Document [facility] Family Medicine [facility] [place] [address] ProviderRoselyn MD [address] [place] [address] Social History Tobacco Use Types Packs/Day [...] BUSHE /Sex: 1955 Female Med Rec #: [id number] Physician: DONY CERVANTES MD-OBG Financial #: [id number] Pt. Type: O Room/Bed: [facility] Admit/Disch: 11/05/20 09:46:00 - Institution: [facility] Main [place] PACU Case Times Entry 1 In PACU I 11/05/20 13:56:00 Ready for PACU 11/05/20 14:55:00 Discharge Discharge from PACU 11/05/20 14:55:00 I Last Modified By: BLANCA KEYS RN 11/05/20 15:08:20 Finalized By: BLANCA KEYS RN Document Signatures Signed By: BLANCA KEYS RN 11/05/20 15:08 Electronically signed by Marion [facility] Conversion Sheriffs Detective Cerner at 06/27/2022 8:34 PM CDT documented in this encounter Plan of Treatment Not on file documented as of this encounter Visit Diagnoses Not on filedocumented in this encounter Care Teams Fitness/Wellness Director Relationship Specialty Start Date End Date Mari Carrero, TEARER PRESS CLIPPING [address] [place] [address] PCP - General Nurse Practitioner 08/10/23 documented as of this encounter
--- OUTSIDE RECORDS SUMMARY | 2024-10-08 19:56 | XMS_ITS | Encounter Summary ---
Author Organization [employer] ([place], [place], [place], [place]) Address [address] [place] [address] Care Team Providers Care Projection Engineer Name Role Phone Mari Carrero APRN Primary Care Provider Encounter Details Date Type Department Care Team (Late st Contact Info) Description 11/05/2020 Transcribed Document [facility] [place] [facility] [place] [address] ProviderRoselyn MD [address] [place] [address] Social History Tobacco Use Types Packs/Day [...] BUSH /Sex: 1955 Female Med Rec #: [id number] Physician: DONY CERVANTES MD-OBG Financial #: [id number] Pt. Type: O Room/Bed: [facility] Admit/Disch: 11/05/20 09:46:00 - Institution: [facility] Main OR PostOp Case Times Entry 1 In PACU II 11/05/20 15:00:00 Ready for PACU II 11/05/20 15:30:00 Discharge Discharge from PACU 11/05/20 15:45:00 II Last Modified By: KATHLEEN BRAMBILA, RN 11/05/20 16:01:57 [facility] Main OR PostOp Case Times Audit 11/05/20 16:01:57 Transmission Builder: [email or web address] Modifier: [email or web address] <+> 1 Discharge from PACU II 11/05/20 15:47:34 Transmission Builder: [email or web address] Modifier: [email or web address] <+> 1 Ready for PACU II Discharge Finalized By: KATHLEEN BRAMBILA, RN Document Signatures Signed By: KATHLEEN BRAMBILA RN 11/05/20 16:02 documented in this encounter Plan of Treatment Not on file documented as of this encounter Visit Diagnoses Not on filedocumented in this encounter Care Teams Projection Engineer Relationship Specialty Start Date End Date Mari Carrero, TELECOMMUNICATIONS LINE INSTALLER [address] [address] PCP - General Nurse Practitioner 08/10/23 documented as of this encounter
--- OUTSIDE RECORDS SUMMARY | 2024-10-08 19:56 | XMS_ITS | Encounter Summary ---
Author Organization [employer] ([place], [place], [place], [place]) Address [address] [place] [address] Care Team Providers Care Codifier Name Role Phone Mari Carrero APRN Primary Care Provider Encounter Details Date Type Department Care Team (Late st Contact Info) Description 11/05/2020 Transcribed Document [facility] [place] [facility] [place] [address] ProviderRoselyn MD [address] [place] [address] Social History Tobacco Use Types Packs/Day [...] Roselyn ProviderMD - 11/05/2020 3:09 PM CDT [address] [address] ANN MARIE BUSH :1955 Visit [...] EDT Where: [address] [place] [address]- [facility] (1) Medications What How Much When Instructions Next Dose acetaminophen-hydrocodone ([place] 10 mg-325 mg oral tablet) 1 Tablet(s) [...] (fluticasone 50 mcg/ inh nasal spray) 2 [employer](s) Nasal Every Day furosemide (furosemide 40 mg [...] these instructions at home: Medicines ??? Take rcfq-ilf-bsbkqem and prescription medicines only as told by [...] and water are not available, use hand drawing box tender. ??? Change your dressing and packing as [...] provider. Document Revised: 01/29/2019 Document Reviewed: 01/29/2019 [employer] Patient Education ?? 2020 [employer] Outpatient Surgery, Adult, Care After These [...] and water are not available, use hand drawing box tender. ? Change your dressing as told by [...] or a bad smell. Medicines ??? Take gxxt-mbw-jgycjpt and prescription medicines only as told by [...] provider. Document Revised: 05/29/2018 Document Reviewed: 06/20/2016 [employer] Patient Education ?? 2020 [employer]. General [...] activities are safe for you. ??? Take altd-dfa-kumkviy and prescription medicines only as told by [...] provider. Document Revised: 03/03/2018 Document Reviewed: 10/14/2017 [employer] Patient Education ?? 2020 [employer]. Emergency Awareness and Preventative Care STROKE is [...] Assistance with quitting is available by contacting 6-727-SRZD-NOW. This is a free resource providing counseling, [...] range between ( 1.0 and 7.0 ) Whitley #: 0.23 K/uL -- Normal range between ( 0.24 and 0.82 ) Eos #: 0.03 K/uL -- Normal range between ( 0.04 and 0.54 ) Whitley %: 3.2 % -- Normal range between [...] was given the opportunity to ask questions. Patient/Academic Counselor Name: Patient/Academic Counselor Signature: Relationship to Patient: Clinician/Hospital Academic Counselor Signature: Date: documented in this encounter Plan of Treatment Not on file documented as of this encounter Visit Diagnoses Not on filedocumented in this encounter Care Teams Codifier Relationship Specialty Start Date End Date Mari Carrero, CONSTRUCTION INSPECTOR [address] [place] [address] PCP - General Nurse Practitioner 08/10/23 documented as of this encounter
== END 2024-10-08 23:59 | disposition home or self-care (01) ==
LOC: LAB 19:54
PROVIDERS: PCP Nurse Practitioner Family; Visit Provider Nurse Practitioner Family
DX: N39.0 Urinary tract infection, site not specified (principal); R82.90 Unspecified abnormal findings in urine
CPT/HCPCS: 87086

== ENCOUNTER 2024-10-18 19:45 | Outpatient (CLI) | payer MEDICARE, SELFPAY ==
--- OUTSIDE RECORDS SUMMARY | 2024-10-18 19:46 | XMS_ITS | Continuity of Care Document ---
Author Organization [facility]. If a dditional information is needed, contact Health Information Management at [phone] Address [address] [place] [address] Phone Care Team Providers Care Fleet Mechanic Name Role Phone Unavailable Unavailable Unavailable Unavailable [...] ORAL Daily Start:16-Jul-2022 Comments:25 mg PO DAILY omeprazole 40 MG Delayed Rel ease Oral Capsule;40 MG ORAL Two Times a Day Start:16-Jul-2022 Comments:40 mg PO BID Glucophage_GLUC500T23-AOM;50 0 MG ORAL At Bedtime Start:16-Jul-2022 Comments:500 mg PO BEDTIME traZODone hydrochloride;300 MG ORAL At Bedtime Start:16-Jul-2022 Comments:300 mg PO BEDTIME rosuvastatin 20 mg tablet;20 MG ORAL At Bedtime Start:16-Jul-2022 Comments:20 mg PO BEDTIME Valium;10 MG ORAL Three Time s a Day Start:16-Jul-2022 Comments:10 mg PO TID As Needed for Anxiety furosemide 40 MG Oral Tablet ;60 MG ORAL QAM Start:16-Jul-2022 Comments:60 mg PO QAM sertraline 50 MG Oral Tablet ;50 MG ORAL Daily Start:16-Jul-2022 Comments:50 mg PO DAILY Decara;1250 MCG ORAL Weekly Start:16-Jul-2022 Comments:1250 mcg PO WEEKLY levothyroxine sodium 0.05 MG Oral Tablet [Synthroid];50 MCG ORAL Daily Start:16-Jul-2022 Comments:50 mcg PO DAILY polyethylene glycol 3350 17 gram/dose oral powder;17 G ORAL Daily Start:16-Jul-2022 Comments:17 g PO DAILY Flonase_FLON16SP6-AOM;1 SPRA Y Intranasal Daily Start:16-Jul-2022 Comments:1 spray INTRANASAL DAILY
--- OUTSIDE RECORDS SUMMARY | 2024-10-18 19:47 | XMS_ITS | Referral Summary ---
Author Organization [employer] ([place], [place], [place], [place]) Address [address] [place] [address] Care Team Providers Care Furniture Designer Name Role Phone Mari Carrero MECHANICAL HANDYMAN Primary Care Provider [phone] Allergies Active Allergy Reactions Criticality Noted Date [...] Due Influenza High Dose Preservative Free IM ([id number] ) 03/31/2020 Influenza Quad-qiv Non Pf 01/23/2018 [...] Date Silviano rded Speak language other than Eritrean at home Not on file 05/25/2023 Want [...] Plan of Treatment Not on file Insurance [facility] MEDICARE ADVANTAGE Care Teams Furniture Designer Relationship Specialty Start Date End Date Mari Carrero, MECHANICAL HANDYMAN [address] [place] [address] PCP - General Nurse Practitioner 08/10/23
--- OUTSIDE RECORDS SUMMARY | 2024-10-18 19:47 | XMS_ITS | Encounter Summary ---
Author Organization [employer] ([place], [place], [place], [place]) Address [address] [place] [address] Care Team Providers Care Time Cycle Operator Name Role Phone Mari Carrero APRN Primary Care Provider Encounter Details Date Type Department Care Team (Late st Contact Info) Description 11/05/2020 Transcribed Document [facility] [place] [address] ProviderRoselyn MD [address] [place] [address] Social History Tobacco Use Types Packs/Day [...] these instructions at home: Medicines ??? Take wbhq-flr-ggogtlp and prescription medicines only as told by [...] and water are not available, use hand formation testing operator. ??? Change your dressing and packing as [...] provider. Document Revised: 01/29/2019 Document Reviewed: 01/29/2019 [employer] Patient Education ? 2020 [employer]. Pharmacology [...] activities are safe for you. ??? Take yayu-oxx-euceezq and prescription medicines only as told by [...] provider. Document Revised: 03/03/2018 Document Reviewed: 10/14/2017 [employer] Patient Education ? 2020 [employer] Procedures Outpatient Surgery, Adult, Care After [...] and water are not available, use hand formation testing operator. ? Change your dressing as told by [...] or a bad smell. Medicines ??? Take fnpb-adm-vflcqxs and prescription medicines only as told by [...] provider. Document Revised: 05/29/2018 Document Reviewed: 06/20/2016 [employer] Patient Education ? 2020 [employer] documented in this encounter Plan of Treatment Not on file documented as of this encounter Visit Diagnoses Not on filedocumented in this encounter Care Teams Time Cycle Operator Relationship Specialty Start Date End Date Mari Carrero APRN [address] [address] PCP - General Nurse Practitioner 08/10/23 documented as of this encounter
--- OUTSIDE RECORDS SUMMARY | 2024-10-18 19:47 | XMS_ITS | Clinical Summary ---
Author Organization [facility] Address [address] [place] [address] Care Team Providers Care Equipment Service Engineer Name Role Phone Reynold Khan MD Primary Care Provider [phone] Allergies Active Allergy Reactions Criticality Noted Date [...] day. Active cholecalciferol (Vitamin D3) 1.25 MG (45549 UT) tablet Take 50,000 Units by mouth [...] No Healthcare Surrogate: Healthcare POA Care Teams Equipment Service Engineer Relationship Specialty Start Date End Date Reynold Khan MD [address] [place] [address] PCP - General 07/25/20
--- OUTSIDE RECORDS SUMMARY | 2024-10-18 19:47 | XMS_ITS | Encounter Summary ---
Author Organization [employer] ([place], [place], [place], [place]) Address [address] [place] [address] Care Team Providers Care Friction Welding Machine Operator Name Role Phone Mari Carrero APRN Primary Care Provider Encounter Details Date Type Department Care Team (Late st Contact Info) Description 11/05/2020 Transcribed Document [facility] [place] [facility] [address] ProviderRoselyn MD [address] [place] [address] Social History Tobacco Use Types [...] Source : Stated Height Entry Format : Gassaway Height, Feet : 5 ft(Converted to: 152 cm, 60 Inch) Height, Inches : 2 Inch(Converted to: 0 ft 2 Inch, 5.08 cm) Clinical Height : 157.48 cm Weight Source : Standing scale Weight Entry Format : Gassaway Clinical Dosing Weight : 85.91 kg Weight, Pounds : 189 lb Body Surface Area (BSA) : 1.87 m2 Body Mass Index : 34.6 kg/m2 (HI) Realitos Body Weight : 50 kg Alisha Munoz [...] Alisha Munoz Rn - 11/05/2020 10:40 EDT Morris Suicide Severity Rating Scale (C-SSRS) CSSRS Past [...] Obtained From : Patient Primary Language : Nigerien Communication Barrier : None Dwarf Tree Grower Needed : No Alisha Munoz Rn - [...] on filedocumented in this encounter Care Teams Friction Welding Machine Operator Relationship Specialty Start Date End Date Mari Carrero, MARTIR [address] [place] [address] PCP - General Nurse Practitioner 08/10/23 documented as of this encounter
--- OUTSIDE RECORDS SUMMARY | 2024-10-18 19:47 | XMS_ITS | Encounter Summary ---
Author Organization [employer] ([place], [place], [place], [place]) Address [address] [place] [address] Care Team Providers Care Hand Shoe Cutter Name Role Phone Mari Carrero APRN Primary Care Provider Encounter Details Date Type Department Care Team (Late st Contact Info) Description 11/05/2020 Transcribed Document [facility] Family Medicine [facility] [place] [address] ProviderRoselyn MD [address] [place] [address] Social History Tobacco Use Types Packs/Day [...] DOMINGUEZ /Sex: 1955 Female Med Rec #: [id number] Physician: DONY CERVANTES MD-OBG Financial #: [id number] Pt. Type: O Room/Bed: [facility] Admit/Disch: 11/05/20 09:46:00 - Institution: [facility] IntraOp Case Attendance Entry 1 Entry 2 Entry 3 Case Attendee DONY CERVANTES MD-OBG ANNI GOODRICH APRN, Brock, Deanna MOONER-ANS Role Performed Surgeon/Proceduralist, MOONER/Nurse Locker Room Supervisor Scrub, First First Time In 11/05/20 [...] Christianson RN-PATIENT CARE BEDSIDE NON-EXEMPT Role Performed Kaitara Taraka, First Time In 11/05/20 12:28:00 Time Out 11/05/20 13:56:00 Procedure Mass Excision Genitalia Other Attendee Superficial Wound Closed By: Last Modified By: Brittani Christianson RN-PATIENT CARE BEDSIDE NON-EXEMPT 11/05/20 13:56:02 [facility] IntraOp Case Attendance Audit 11/05/20 13:56:02 Court Worker: [id number] Modifier: [id number] <+> Time Out 1 <*> Procedure Mass Excision Genitalia 2 <+> Time Out 2 <*> Procedure Mass Excision Genitalia 3 <+> Time Out 3 <*> Procedure Mass Excision Genitalia 4 <+> Time Out 4 <*> Procedure Mass Excision Genitalia 11/05/20 13:10:37 Court Worker: [id number] Modifier: [id number] 1 <+> Time In 1 <*> Procedure Mass Excision Genitalia 2 <+> Time In 2 <*> Procedure Mass Excision Genitalia 3 <+> Time In 3 <*> Procedure Mass Excision Genitalia 4 <+> Time In 4 <*> Procedure Mass Excision Genitalia 11/05/20 12:53:31 Court Worker: [id number] Modifier: [id number] <+> 2 Case Attendee <+> 2 Role [...] [facility] IntraOp Case Times Audit 11/05/20 13:55:49 Court Worker: [id number] Modifier: [id number] <+> 1 Out Room Time <+> 1 [...] Patient Transport ANNI GOODRICH APRN, Accompanied by MOONER-ANS, Brittani Christianson RN-PATIENT CARE BEDSIDE NON-EXEMPT Last [...] NON-EXEMPT 11/05/20 13:06:09 [facility] IntraOp General Case Teacher Instrumental 1 Case Information OR OR 04 [facility] [...] 0.5% w/ epinephrine 1:200,000 30ml vial - [id number] Route of TO FIELD Administration Dose Dose [...] Intra Op Sign Out Audit 11/05/20 13:55:56 Court Worker: [id number] Modifier: [id number] <+> 1 RN Sign Out Signature Date/Time [...] [facility] IntraOp Surgical Procedures Audit 11/05/20 13:56:01 Court Worker: [id number] Modifier: [id number] <+> 1 Stop 11/05/20 13:09:58 Court Worker: [id number] Modifier: [id number] <+> 1 Start [facility] IntraOp Temp Regulation Devices Entry 1 Temp Regulation Temperature Forced Air Warming Regulation Device device Temperature Upper body Regulation Site Temperature Device HIGH Setting Temperature ANNI GOODRICH APRN, Regulation Device MOONER-ANS Applied by Last Modified By: Brittani Christianson [...] 13:56 Electronically signed by Marion [facility] Conversion Oven Builder Cerner at 06/27/2022 8:33 PM CDT documented in this encounter Plan of Treatment Not on file documented as of this encounter Visit Diagnoses Not on filedocumented in this encounter Care Teams Hand Shoe Cutter Relationship Specialty Start Date End Date Mari Carrero, CHEMIST STEROIDS [address] [place] [address] PCP - General Nurse Practitioner 08/10/23 documented as of this encounter
--- OUTSIDE RECORDS SUMMARY | 2024-10-18 19:47 | XMS_ITS | Encounter Summary ---
Author Organization [facility] Address [address] [place] [address] Care Team Providers Care Embossing Machine Tender Name Role Phone Reynold Khan MD Primary Care Provider [phone]- [phone] Encounter Details Date Type Department Care Team (Late st Contact Info) Description 07/19/2022 Lab Requisition [facility] [address] [place] [address] Maxwell Neal MD [address] [place] [address] Encounter for general adult medical [...] Date of Assessment Author Initial/First Attempt Date [id number] 07/19/2022 2:0 0 PM EDT Maliha Bond [...] Interrupted Attempts (Lifetime) No 2:00 PM EDT Mailha Bond RN Aborted or Self-Interrupted Attempt (Lifetime) [...] ORDERABLES Final Result Performing Organization Address City/State/[facility] Co de Phone Number HEALTHCARE [facility] [address] [place] [address] documented in this encounter Visit Diagnoses Diagnosis Encounter for general adult medical examination without abnormal findings documented in this encounter Care Teams Embossing Machine Tender Relationship Specialty Start Date End Date Reynold Khan MD [address] [place] [address] PCP - General 07/25/20 documented as of this encounter
--- OUTSIDE RECORDS SUMMARY | 2024-10-18 19:47 | XMS_ITS | Encounter Summary ---
Author Organization [employer] ([place], [place], [place], [place]) Address [address] [place] [address] Care Team Providers Care Life Science Research Assistant Name Role Phone Mari Carrero APRN Primary Care Provider Encounter Details Date Type Department Care Team (Late st Contact Info) Description 11/05/2020 Transcribed Document [facility] [place] [facility] [place] [address] ProviderRoselyn MD [address] [place] [address] Social History Tobacco Use Types Packs/Day [...] BUSH /Sex: 1955 Female Med Rec #: [id number] Physician: DONY CERVANTES MD-OBG Financial #: [id number] Pt. Type: O Room/Bed: [facility] Admit/Disch: 11/05/20 09:46:00 - Institution: [facility] Main OR PostOp Case Times Entry 1 In PACU II 11/05/20 15:00:00 Ready for PACU II 11/05/20 15:30:00 Discharge Discharge from PACU 11/05/20 15:45:00 II Last Modified By: KATHLEEN BRAMBILA, RN 11/05/20 16:01:57 [facility] Main OR PostOp Case Times Audit 11/05/20 16:01:57 Workers Compensation Claims Analyst: [email or web address] Modifier: [email or web address] <+> 1 Discharge from PACU II 11/05/20 15:47:34 Workers Compensation Claims Analyst: [email or web address] Modifier: [email or web address] <+> 1 Ready for PACU II Discharge Finalized By: KATHLEEN BRAMBILA, RN Document Signatures Signed By: KATHLEEN BRAMBILA RN 11/05/20 16:02 documented in this encounter Plan of Treatment Not on file documented as of this encounter Visit Diagnoses Not on filedocumented in this encounter Care Teams Life Science Research Assistant Relationship Specialty Start Date End Date Mari Carrero, DOWNSTAIRS MAID [address] [address] PCP - General Nurse Practitioner 08/10/23 documented as of this encounter
--- OUTSIDE RECORDS SUMMARY | 2024-10-18 19:47 | XMS_ITS | Encounter Summary ---
Author Organization [employer] ([place], [place], [place], [place]) Address [address] [place] [address] Care Team Providers Care Service Center Appraiser Name Role Phone Mari Carrero APRN Primary Care Provider Encounter Details Date Type Department Care Team (Late st Contact Info) Description 11/05/2020 Transcribed Document [facility] [place] [place] [facility] [place] [address] ProviderRoselyn MD [address] [place] [address] Social History Tobacco Use Types Packs/Day [...] BUSHE /Sex: 1955 Female Med Rec #: [id number] Physician: DONY CERVANTES MD-OBG Financial #: [id number] Pt. Type: O Room/Bed: [facility] Admit/Disch: 11/05/20 09:46:00 - Institution: [facility] Main [place] PACU Case Times Entry 1 In PACU I 11/05/20 13:56:00 Ready for PACU 11/05/20 14:55:00 Discharge Discharge from PACU 11/05/20 14:55:00 I Last Modified By: BLANCA KEYS RN 11/05/20 15:08:20 Finalized By: BLANCA KEYS RN Document Signatures Signed By: BLANCA KEYS RN 11/05/20 15:08 Electronically signed by Marion [facility] Conversion Patient Escort Cerner at 06/27/2022 8:34 PM CDT documented in this encounter Plan of Treatment Not on file documented as of this encounter Visit Diagnoses Not on filedocumented in this encounter Care Teams Service Center Appraiser Relationship Specialty Start Date End Date Mari Carrero, SOFTWARE PROGRAMMER [address] [place] [address] PCP - General Nurse Practitioner 08/10/23 documented as of this encounter
--- OUTSIDE RECORDS SUMMARY | 2024-10-18 19:47 | XMS_ITS | Encounter Summary ---
Author Organization [employer] ([place], [place], [place], [place]) Address [address] [place] [address] Care Team Providers Care Derrick Boat Leverman Name Role Phone Mari Carrero APRN Primary Care Provider Encounter Details Date Type Department Care Team (Late st Contact Info) Description 11/05/2020 Transcribed Document [facility] [place] [facility] [place] [address] ProviderRoselyn MD [address] [place] [address] Social History Tobacco Use Types Packs/Day [...] DOMINGUEZ /Sex: 1955 Female Med Rec #: [id number] Physician: DONY CERVANTES MD-OBG Financial #: [id number] Pt. Type: O Room/Bed: [facility] Admit/Disch: 11/05/20 09:46:00 - Institution[place] [facility] PreOp Case Times Entry 1 In Preop 11/05/20 09:55:00 Ready for Holding n/a Room Patient Ready for 11/05/20 10:30:00 Surgery Patient Out of Preop 11/05/20 12:20:00 Patient Out of n/a Holding Room Last Modified By: Katelyn Ga RN 11/05/20 17:26:05 [facility] PreOp Case Times Audit 11/05/20 17:26:05 Seo Expert: [email or web address] Modifier: [id number] <+> 1 Patient Out of Preop Finalized By: Katelyn Ga, RN Document Signatures Signed By: Katelyn Ga RN 11/05/20 17:26 documented in this encounter Plan of Treatment Not on file documented as of this encounter Visit Diagnoses Not on filedocumented in this encounter Care Teams Derrick Boat Leverman Relationship Specialty Start Date End Date Mari Carrero, DIVEMASTER [address] [place] [id number] PCP - General Nurse Practitioner 08/10/23 documented as of this encounter
--- OUTSIDE RECORDS SUMMARY | 2024-10-18 19:47 | XMS_ITS | Clinical Summary ---
Author Organization [employer] ([place], [place], [place], [place]) Address [address] [place] [address] Care Team Providers Care Instructor Tap Dancing Name Role Phone Mari Carrero WEEKDAY BABYSITTER Primary Care Provider Allergies Active Allergy Reactions [...] Due Influenza High Dose Preservative Free IM (JIF800 ) 03/31/2020 Influenza Quad-qiv Non Pf 01/23/2018 [...] Date Silviano rded Speak language other than Romanian at [...] 08/09/2028 08/10/2023 Colorectal Cancer Screening 08/09/2028 Insurance [facility] MEDICARE ADVANTAGE Care Teams Instructor Tap Dancing Relationship Specialty Start Date End Date Mari Carrero, WEEKDAY BABYSITTER [address] [place] [address] PCP - General Nurse Practitioner 08/10/23
--- OUTSIDE RECORDS SUMMARY | 2024-10-18 19:47 | XMS_ITS | Encounter Summary ---
Author Organization [employer] ([place], [place], [place], [place]) Address [address] [place] [address] Care Team Providers Care Senior Investment Analyst Name Role Phone Mari Carrero APRN Primary Care Provider Encounter Details Date Type Department Care Team (Late st Contact Info) Description 11/04/2020 Transcribed Document [facility] [place] [address] [place] [address] ProviderRoselyn MD [address] [place] [address] Social History Tobacco Use Types Packs/Day Years [...] to me by Dr. Main Paez in [place], [place], with a problem of an inflammatory [...] SOCIAL HISTORY: The patient is a one awbn-tdg-qqa cigarette smoker. PHYSICAL EXAMINATION: GENERAL: Shows a [...] extension. ASSESSMENT: As above. PLAN: As above. /[id number] MD ANG Del AngelB/PER / LSBianca / MODL Electronically signed by [facility] Conversion Manager Support Cerner at 06/27/2022 8:21 PM CDT documented in this encounter Plan of Treatment Not on file documented as of this encounter Visit Diagnoses Not on filedocumented in this encounter Care Teams Senior Investment Analyst Relationship Specialty Start Date End Date Mari Carrero, BACK TENDER [address] [address] PCP - General Nurse Practitioner 08/10/23 documented as of this encounter
--- OUTSIDE RECORDS SUMMARY | 2024-10-18 19:47 | XMS_ITS | Encounter Summary ---
Author Organization [employer] ([place], [place], [place], [place]) Address [address] [place] [address] Care Team Providers Care Perfect Binder Operator Name Role Phone Mari Carrero APRN Primary Care Provider Encounter Details Date Type Department Care Team (Late st Contact Info) Description 11/05/2020 Transcribed Document [facility] [place] [facility] [place] [address] ProviderRoselyn MD [address] [place] [address] Social History Tobacco Use Types Packs/Day [...] Roselyn ProviderMD - 11/05/2020 3:09 PM CDT [address] [address] ANN MARIE BUSH :1955 Visit [...] EDT Where: [address] [place] [address]- [facility] (1) Medications What How Much When Instructions Next Dose acetaminophen-hydrocodone ([place] 10 mg-325 mg oral tablet) 1 Tablet(s) [...] (fluticasone 50 mcg/ inh nasal spray) 2 [place](s) Nasal Every Day furosemide (furosemide 40 mg [...] these instructions at home: Medicines ??? Take bdzh-qpl-upenkzz and prescription medicines only as told by [...] water are not available, use hand business specialist. ??? Change your dressing and packing [...] provider. Document Revised: 01/29/2019 Document Reviewed: 01/29/2019 ElseMyCoop Patient Education ?? 2020 [employer] Outpatient Surgery, Adult, Care After These [...] water are not available, use hand business specialist. ? Change your dressing as told [...] or a bad smell. Medicines ??? Take wzjs-niu-ltkabal and prescription medicines only as told by [...] provider. Document Revised: 05/29/2018 Document Reviewed: 06/20/2016 [employer]MyCoop Patient Education ?? 2020 Elsevier Inc. General [...] activities are safe for you. ??? Take kmpp-fbj-umjfrgo and prescription medicines only as told by [...] provider. Document Revised: 03/03/2018 Document Reviewed: 10/14/2017 [employer] Patient Education ?? 2020 [employer]. Emergency Awareness and Preventative Care STROKE is [...] Assistance with quitting is available by contacting 4-950-CAYJ-NOW. This is a free resource providing counseling, [...] range between ( 1.0 and 7.0 ) [place] #: 0.23 K/uL -- Normal range between ( 0.24 and 0.82 ) Eos #: 0.03 K/uL -- Normal range between ( 0.04 and 0.54 ) [place] %: 3.2 % -- Normal range between [...] was given the opportunity to ask questions. Patient/Personal Computer Network Engineer Name: Patient/Personal Computer Network Engineer Signature: Relationship to Patient: Clinician/Hospital Personal Computer Network Engineer Signature: Date: documented in this encounter Plan of Treatment Not on file documented as of this encounter Visit Diagnoses Not on filedocumented in this encounter Care Teams Perfect Binder Operator Relationship Specialty Start Date End Date Mari Carrero, JEWELRY MOLD MAKER [address] [place] [address] PCP - General Nurse Practitioner 08/10/23 documented as of this encounter
--- OUTSIDE RECORDS SUMMARY | 2024-10-18 19:47 | XMS_ITS | Encounter Summary ---
Author Organization [employer] ([place], [place], [place], [place]) Address [address] [place] [address] Care Team Providers Care Manager Account Management Name Role Phone Mari Carrero APRN Primary Care Provider Encounter Details Date Type Department Care Team (Late st Contact Info) Description 11/05/2020 Transcribed Document [facility] [place] [address] [place] [address] ProviderRoselyn MD [address] [place] [address] Social History Tobacco Use Types Packs/Day [...] Dr. Main Paez in [facility], was purulent, but it has been present [...] the top part, but we put a Republic drain in for drainage and sutured it to the skin with 2-0 Vicryl and closed the skin with louie. The patient was taken to postop recovery room in satisfactory condition and she was given and clindamycin as preop clinical antibiotics. ESTIMATED BLOOD LOSS: Approximately 15 to 20 mL. /[id number] Zane Redman MD LSB/AQ / LSB / MODL /[id number] documented in this encounter Plan of Treatment Not on file documented as of this encounter Visit Diagnoses Not on filedocumented in this encounter Care Teams Manager Account Management Relationship Specialty Start Date End Date Mari Carrero APRN [address] [address] PCP - General Nurse Practitioner 08/10/23 documented as of this encounter
== END 2024-10-18 23:59 | disposition home or self-care (01) ==
LOC: LAB.DROPOF 19:46
PROVIDERS: PCP Nurse Practitioner Family; Visit Provider Nurse Practitioner Family
DX: R69 Illness, unspecified (principal)

== ENCOUNTER 2024-10-19 09:12 | Outpatient (CLI) | payer MEDICARE, SELFPAY ==
[2024-10-22 09:29] LABS: Microscopic, Urine URINE MICROSCOPIC (MICROSCOPIC)
[2024-10-22 10:56] LABS: Bilirubin,Urine Negative (Negative); Color,Urine YELLOW (Yellow); Glucose,Urine (UA) 3+ (Negative); Ketones,Urine Negative (Negative); Leukocyte Esterase,Urine Negative (Negative); PH,Urine 5.5 (5.0-8.5); Protein,Urine Negative (Negative); Specific Gravity, Urine 1.010 (1.005-1.030); Urobilinogen,Urine 0.2 EU/dl (0.2)
[2024-10-22 11:32] LABS: WBC,Urine Occasional #/hpf (0-3)
--- OUTSIDE RECORDS SUMMARY | 2024-10-24 09:19 | XMS_ITS | Encounter Summary ---
Author Organization [facility] Address [address] [place] [address] Care Team Providers Care Huc Name Role Phone Reynold Khan MD Primary Care Provider [phone]- [phone] Encounter Details Date Type Department Care Team (Late st Contact Info) Description 07/19/2022 Lab Requisition [facility] [address] [place] [address] Maxwell Neal MD [address] [place] [address] Encounter for general adult medical [...] Date of Assessment Author Initial/First Attempt Date [id number] 07/19/2022 2:0 0 PM EDT Maliha Bond [...] ORDERABLES Final Result Performing Organization Address City/State/[facility] Co de Phone Number HEALTHCARE [facility] [address] [place] [address] documented in this encounter Visit Diagnoses Diagnosis Encounter for general adult medical examination without abnormal findings documented in this encounter Care Teams Huc Relationship Specialty Start Date End Date Reynold Khan MD [address] [place] [address] PCP - General 07/25/20 documented as of this encounter
--- OUTSIDE RECORDS SUMMARY | 2024-10-24 09:19 | XMS_ITS | Clinical Summary ---
Author Organization [employer] ([place], [place], [place], [place]) Address [address] [place] [address] Care Team Providers Care Developer Prover Upholstering Name Role Phone Mari Carrero TRIM SETTER Primary Care Provider Allergies Active Allergy Reactions [...] Due Influenza High Dose Preservative Free IM (RFL275 ) 03/31/2020 Influenza Quad-qiv Non Pf 01/23/2018 [...] Date Silviano rded Speak language other than American at home Not on file 05/25/2023 Want [...] 08/09/2028 08/10/2023 Colorectal Cancer Screening 08/09/2028 Insurance [facility] MEDICARE ADVANTAGE Care Teams Developer Prover Upholstering Relationship Specialty Start Date End Date Mari Carrero, TRIM SETTER [address] [place] [address] PCP - General Nurse Practitioner 08/10/23
--- OUTSIDE RECORDS SUMMARY | 2024-10-24 09:20 | XMS_ITS | Encounter Summary ---
Author Organization [employer] ([place], [place], [place], [place]) Address [address] [place] [address] Care Team Providers Care Fire Observer Name Role Phone Mari Carrero APRN Primary Care Provider Encounter Details Date Type Department Care Team (Late st Contact Info) Description 11/05/2020 Transcribed Document [facility] Family Medicine [facility] [place] [address] ProviderRoselyn MD [address] [place] [address] Social History Tobacco Use Types Packs/Day [...] DOMINGUEZ /Sex: 1955 Female Med Rec #: [id number] Physician: DONY CERVANTES MD-OBG Financial #: [id number] Pt. Type: O Room/Bed: [facility] Admit/Disch: 11/05/20 09:46:00 - Institution: [facility] [place] PreOp Case Times Entry 1 In Preop 11/05/20 09:55:00 Ready for Holding n/a Room Patient Ready for 11/05/20 10:30:00 Surgery Patient Out of Preop 11/05/20 12:20:00 Patient Out of n/a Holding Room Last Modified By: Katelyn Ga RN 11/05/20 17:26:05 [facility] PreOp Case Times Audit 11/05/20 17:26:05 Newswriter: [email or web address] Modifier: [id number] <+> 1 Patient Out of Preop Finalized By: Katelyn Ga, RN Document Signatures Signed By: Katelyn Ga RN 11/05/20 17:26 documented in this encounter Plan of Treatment Not on file documented as of this encounter Visit Diagnoses Not on filedocumented in this encounter Care Teams Fire Observer Relationship Specialty Start Date End Date Mari Carrero, SAP BASIS ARCHITECT [address] [place] [id number] PCP - General Nurse Practitioner 08/10/23 documented as of this encounter
--- OUTSIDE RECORDS SUMMARY | 2024-10-24 09:20 | XMS_ITS | Encounter Summary ---
Author Organization [employer] ([place], [place], [place], [place]) Address [address] [place] [address] Care Team Providers Care Monotype Mechanic Name Role Phone Mari Carrero APRN Primary Care Provider Encounter Details Date Type Department Care Team (Late st Contact Info) Description 11/05/2020 Transcribed Document [facility] [place] [facility] [place] [address] ProviderRoselyn MD [address] [place] [address] Social History Tobacco Use Types Packs/Day [...] BUSHE /Sex: 1955 Female Med Rec #: [id number] Physician: DONY CERVANTES MD-OBG Financial #: [id number] Pt. Type: O Room/Bed: [facility] Admit/Disch: 11/05/20 09:46:00 - [facility] [place] PACU Case Times Entry 1 [...] on filedocumented in this encounter Care Teams Monotype Mechanic Relationship Specialty Start Date End Date Mari Carrero, CREDIT SUPPORT COUNSELOR [address] [place] [address] PCP - General Nurse Practitioner 08/10/23 documented as of this encounter
--- OUTSIDE RECORDS SUMMARY | 2024-10-24 09:20 | XMS_ITS | Encounter Summary ---
Author Organization [employer] ([place], [place], [place], [place]) Address [address] [place] [address] Care Team Providers Care Database Developer Name Role Phone Mari Carrero APRN Primary Care Provider [phone] Encounter Details Date Type Department Care Team (Late st Contact Info) Description 11/04/2020 Transcribed Document [facility] [place] Family Medicine [address] [place] [address] ProviderRoselyn MD [address] [place] [address] 639331 Social History Tobacco Use Types Packs/Day Years [...] to me by Dr. Main Paez in [place], [place], with a problem of an inflammatory [...] SOCIAL HISTORY: The patient is a one udxe-hha-msy cigarette smoker. PHYSICAL EXAMINATION: GENERAL: Shows a [...] extension. ASSESSMENT: As above. PLAN: As above. /[id number] MD ANG Del AngelB/PER / LSBianca / MODL Electronically signed by [facility] Conversion Crime Data Specialist Cerner at 06/27/2022 8:21 PM CDT documented in this encounter Plan of Treatment Not on file documented as of this encounter Visit Diagnoses Not on filedocumented in this encounter Care Teams Database Developer Relationship Specialty Start Date End Date Mari Carrero, LEI MAKER [address] [address] PCP - General Nurse Practitioner 08/10/23 documented as of this encounter
--- OUTSIDE RECORDS SUMMARY | 2024-10-24 09:20 | XMS_ITS | Encounter Summary ---
Author Organization [employer] ([place], [place], [place], [place]) Address [address] [place] [address] Care Team Providers Care Precision Assembler Name Role Phone Mari Carrero APRN Primary Care Provider Encounter Details Date Type Department Care Team (Late st Contact Info) Description 11/05/2020 Transcribed Document [facility] [place] [facility] [place] [address] ProviderRoselyn MD [address] [place] [address] Social History Tobacco Use Types Packs/Day [...] these instructions at home: Medicines ??? Take smfx-hpx-scnkpjc and prescription medicines only as told by [...] and water are not available, use hand sonar technician. ??? Change your dressing and packing [...] provider. Document Revised: 01/29/2019 Document Reviewed: 01/29/2019 MyActivityPal Patient Education ? 2020 Elsevier Inc. Pharmacology [...] activities are safe for you. ??? Take gijb-hym-etagexa and prescription medicines only as told by [...] provider. Document Revised: 03/03/2018 Document Reviewed: 10/14/2017 [employer] Patient Education ? 2020 [employer]. Procedures Outpatient Surgery, Adult, Care After [...] and water are not available, use hand sonar technician. ? Change your dressing as told [...] or a bad smell. Medicines ??? Take cxla-hwr-xvwxbhb and prescription medicines only as told by [...] provider. Document Revised: 05/29/2018 Document Reviewed: 06/20/2016 [employer] Patient Education ? 2020 [employer]. documented in this encounter Plan of Treatment Not on file documented as of this encounter Visit Diagnoses Not on filedocumented in this encounter Care Teams Precision Assembler Relationship Specialty Start Date End Date Mari Carrero APRN [address] [address] PCP - General Nurse Practitioner 08/10/23 documented as of this encounter
--- OUTSIDE RECORDS SUMMARY | 2024-10-24 09:20 | XMS_ITS | Encounter Summary ---
Author Organization [employer] ([place], [place], [place], [place]) Address [address] [place] [address] Care Team Providers Care Cork Grinder Name Role Phone Mari Carrero APRN Primary Care Provider Encounter Details Date Type Department Care Team (Late st Contact Info) Description 11/05/2020 Transcribed Document [facility] [place] [address] [place] [address] ProviderRoselyn MD [address] [place] [address] Social History Tobacco Use Types Packs/Day Years Used Date Smoking Tobacco: Never Assessed Comments Unknown Sex and Gender Information Value Date Recorded Sex Assigned at Not on file Legal Sex Female 6:09 PM CDT Gender Identity Not on file Sexual Orientation Not on file documented as of this encounter Miscellaneous Notes * Cerner Conversion Note - Roselyn Bocaengra MD - 11/05/2020 4:52 PM CDT DATE [...] was drained by Dr. Main Paez in [facility], was purulent, but it has been [...] the top part, but we put a [place] drain in for drainage and sutured it to the skin with 2-0 Vicryl and closed the skin with louie. The patient was taken to postop recovery room in satisfactory condition and she was given and clindamycin as preop clinical antibiotics. ESTIMATED BLOOD LOSS: Approximately 15 to 20 mL. /[id number] Zane Redman MD LSB/AQ / LSB / MODL /[id number] documented in this encounter Plan of Treatment Not on file documented as of this encounter Visit Diagnoses Not on filedocumented in this encounter Care Teams Cork Grinder Relationship Specialty Start Date End Date Mari Carrero APRN [address] [address] PCP - General Nurse Practitioner 08/10/23 documented as of this encounter
--- OUTSIDE RECORDS SUMMARY | 2024-10-24 09:20 | XMS_ITS | Referral Summary ---
Author Organization [employer] ([place], [place], [place], [place]) Address [address] [place] [address] Care Team Providers Care Composition Instructor Name Role Phone Mari Carrero AIR HAMMER STRIPPER Primary Care Provider [phone] Allergies Active Allergy Reactions Criticality Noted Date [...] Due Influenza High Dose Preservative Free IM (ZUC494 ) 03/31/2020 Influenza Quad-qiv Non Pf 01/23/2018 [...] Date Silviano rded Speak language other than [place] Citizen at home Not on file 05/25/2023 Want [...] Treatment Not on file Insurance [facility] MEDICARE ADVANTAGE Care Teams Composition Instructor Relationship Specialty Start Date End Date Mari Carrero, AIR HAMMER STRIPPER [address] [place] [address] PCP - General Nurse Practitioner 08/10/23
--- OUTSIDE RECORDS SUMMARY | 2024-10-24 09:20 | XMS_ITS | Encounter Summary ---
Author Organization [employer] ([place], [place], [place], [place]) Address [address] [place] [address] Care Team Providers Care Operations Scheduler Name Role Phone Mari Carrero APRN Primary Care Provider Encounter Details Date Type Department Care Team (Late st Contact Info) Description 11/05/2020 Transcribed Document [facility] [place] [facility] [place] [address] ProviderRoselyn MD [address] [place] [address] Social History Tobacco Use Types Packs/Day [...] DOMINGUEZ /Sex: 1955 Female Med Rec #: [id number] Physician: DONY CERVANTES MD-OBG Financial #: [id number] Pt. Type: O Room/Bed: [facility] Admit/Disch: 11/05/20 09:46:00 - [place] [facility] [place]Op Case Attendance Entry 1 Entry 2 Entry 3 Case Attendee DONY CERVANTES MD-OBG ANNI GOODRICH APRN, Brock, Deanna VENDOR MANAGEMENT CONSULTANT-ANS Role Performed Surgeon/Proceduralist, VENDOR MANAGEMENT CONSULTANT/Nurse Carver Hand Scrub, First First Time In 11/05/20 12:28:00 [...] Christianson RN-PATIENT CARE BEDSIDE NON-EXEMPT Role Performed Global Process Owner, First Time In 11/05/20 12:28:00 Time Out 11/05/20 13:56:00 Procedure Mass Excision Genitalia Other Attendee Superficial Wound Closed By: Last Modified By: Brittani Christianson RN-PATIENT CARE BEDSIDE NON-EXEMPT 11/05/20 13:56:02 [facility] IntraOp Case Attendance Audit 11/05/20 13:56:02 Drupal Programmer: [id number] Modifier: [id number] <+> Time Out 1 <*> Procedure Mass Excision Genitalia 2 <+> Time Out 2 <*> Procedure Mass Excision Genitalia 3 <+> Time Out 3 <*> Procedure Mass Excision Genitalia 4 <+> Time Out 4 <*> Procedure Mass Excision Genitalia 11/05/20 13:10:37 Drupal Programmer: [id number] Modifier: [id number] <+> Time In 1 <*> Procedure Mass Excision Genitalia 2 <+> Time In 2 <*> Procedure Mass Excision Genitalia 3 <+> Time In 3 <*> Procedure Mass Excision Genitalia 4 <+> Time In 4 <*> Procedure Mass Excision Genitalia 11/05/20 12:53:31 Drupal Programmer: [id number] Modifier: [id number] <+> 2 Case Attendee <+> 2 Role [...] [facility] IntraOp Case Times Audit 11/05/20 13:55:49 Drupal Programmer: [id number] Modifier: [id number] <+> 1 Out Room Time <+> 1 [...] Patient Transport ANNI GOODRICH APRN, Accompanied by VENDOR MANAGEMENT CONSULTANT-ANS, Brittani Christianson RN-PATIENT CARE BEDSIDE NON-EXEMPT Last [...] NON-EXEMPT 11/05/20 13:06:09 [facility] IntraOp General Case Roof Shingler 1 Case Information OR OR 04 [facility] [...] 0.5% w/ epinephrine 1:200,000 30ml vial - [id number] Route of TO FIELD Administration Dose Dose [...] Intra Op Sign Out Audit 11/05/20 13:55:56 Drupal Programmer: [id number] Modifier: [id number] <+> 1 RN Sign Out Signature Date/Time [...] [facility] IntraOp Surgical Procedures Audit 11/05/20 13:56:01 Drupal Programmer: [id number] Modifier: [id number] <+> 1 Stop 11/05/20 13:09:58 Drupal Programmer: [id number] Modifier: [id number] <+> 1 Start [facility] IntraOp Temp Regulation Devices Entry 1 Temp Regulation Temperature Forced Air Warming Regulation Device device Temperature Upper body Regulation Site Temperature Device HIGH Setting Temperature ANNI GOODRICH APRN, Regulation Device VENDOR MANAGEMENT CONSULTANT-ANS Applied by Last Modified By: Brittani Christianson [...] NON-EXEMPT 11/05/20 13:56 Electronically signed by [facility] Conversion Car Ferry Captain Cerner at 06/27/2022 8:33 PM CDT documented in this encounter Plan of Treatment Not on file documented as of this encounter Visit Diagnoses Not on filedocumented in this encounter Care Teams Operations Scheduler Relationship Specialty Start Date End Date Mari Carrero, FACT CHECKER [address] [place] [address] PCP - General Nurse Practitioner 08/10/23 documented as of this encounter
--- OUTSIDE RECORDS SUMMARY | 2024-10-24 09:20 | XMS_ITS | Clinical Summary ---
Author Organization [facility] Address [address] [place] [address] Care Team Providers Care Patient Case Manager Name Role Phone Reynold Khan MD Primary Care Provider [phone] Allergies Active Allergy Reactions Criticality Noted Date [...] day. Active cholecalciferol (Vitamin D3) 1.25 MG (58480 UT) tablet Take 50,000 Units by mouth [...] No Healthcare Surrogate: Healthcare POA Care Teams Patient Case Manager Relationship Specialty Start Date End Date Reynold Khan MD [address] [place] [address] PCP - General 07/25/20
--- OUTSIDE RECORDS SUMMARY | 2024-10-24 09:20 | XMS_ITS | Encounter Summary ---
Author Organization [employer] ([place], [place], [place], [place]) Address [address] [place] [address] Care Team Providers Care Carver Hand Name Role Phone Mari Carrero APRN Primary Care Provider Encounter Details Date Type Department Care Team (Late st Contact Info) Description 11/05/2020 Transcribed Document [facility] [place] Family Medicine [facility] [place] [address] ProviderRoselyn MD [address] [place] [address] Social History Tobacco Use Types Packs/Day [...] BUSH /Sex: 1955 Female Med Rec #: [id number] Physician: DONY CERVANTES MD-OBG Financial #: [id number] Pt. Type: O Room/Bed: [facility] Admit/Disch: 11/05/20 09:46:00 - Institution: [facility] Main OR PostOp Case Times Entry 1 In PACU II 11/05/20 15:00:00 Ready for PACU II 11/05/20 15:30:00 Discharge Discharge from PACU 11/05/20 15:45:00 II Last Modified By: KATHLEEN BRAMBILA, RN 11/05/20 16:01:57 [facility] Main OR PostOp Case Times Audit 11/05/20 16:01:57 Electro Mechanical Technologist: [email or web address] Modifier: [email or web address] <+> 1 Discharge from PACU II 11/05/20 15:47:34 Electro Mechanical Technologist: [email or web address] Modifier: [email or web address] <+> 1 Ready for PACU II Discharge Finalized By: KATHLEEN BRAMBILA, RN Document Signatures Signed By: KATHLEEN BRAMBILA RN 11/05/20 16:02 documented in this encounter Plan of Treatment Not on file documented as of this encounter Visit Diagnoses Not on filedocumented in this encounter Care Teams Carver Hand Relationship Specialty Start Date End Date Mari Carrero, WIND TUNNEL MECHANIC [address] [address] PCP - General Nurse Practitioner 08/10/23 documented as of this encounter
--- OUTSIDE RECORDS SUMMARY | 2024-10-24 09:20 | XMS_ITS | Encounter Summary ---
Author Organization [employer] ([place], [place], [place], [place]) Address [address] [place] [address] Care Team Providers Care Datapower Consultant Name Role Phone Mari Carrero APRN Primary Care Provider Encounter Details Date Type Department Care Team (Late st Contact Info) Description 11/05/2020 Transcribed Document [facility] [place] Family Medicine [facility] [place] [address] ProviderRsoelyn MD [address] [place] [address] Social History Tobacco Use Types [...] Source : Stated Height Entry Format : Dakota Height, Feet : 5 ft(Converted to: 152 cm, 60 Inch) Height, Inches : 2 Inch(Converted to: 0 ft 2 Inch, 5.08 cm) Clinical Height : 157.48 cm Weight Source : Standing scale Weight Entry Format : Dakota Clinical Dosing Weight : 85.91 kg Weight, Pounds : 189 lb Body Surface Area (BSA) : 1.87 m2 Body Mass Index : 34.6 kg/m2 (HI) Hutto Body Weight : 50 kg Alisha Munoz [...] Alisha Munoz Rn - 11/05/2020 10:40 EDT Garvin Suicide Severity Rating Scale (C-SSRS) CSSRS Past [...] Obtained From : Patient Primary Language : Citizen Of [place] Communication Barrier : None Biomedical Photographer Needed : No Alisha Munoz Rn - [...] on filedocumented in this encounter Care Teams Datapower Consultant Relationship Specialty Start Date End Date Mari Carrero, MARTIR [address] [place] [address] PCP - General Nurse Practitioner 08/10/23 documented as of this encounter
--- OUTSIDE RECORDS SUMMARY | 2024-10-24 09:20 | XMS_ITS | Encounter Summary ---
Author Organization [employer] ([place], [place], [place], [place]) Address [address] [place] [address] Care Team Providers Care Cash Management Specialist Name Role Phone Mrai Carrero APRN Primary Care Provider Encounter Details Date Type Department Care Team (Late st Contact Info) Description 11/05/2020 Transcribed Document [facility] [place] Family Medicine [facility] [place] [address] ProviderRoselyn MD [address] [place] [address] Social History Tobacco Use Types Packs/Day [...] Roselyn ProviderMD - 11/05/2020 3:09 PM CDT [address] [address] ANN MARIE BUSH :1955 Visit [...] EDT Where: [address] [place] [address]- [facility] (1) Medications What How Much When Instructions Next Dose acetaminophen-hydrocodone ([place] 10 mg-325 mg oral tablet) 1 Tablet(s) [...] (fluticasone 50 mcg/ inh nasal spray) 2 Baldwin(s) Nasal Every Day furosemide (furosemide 40 mg [...] these instructions at home: Medicines ??? Take rssh-lpl-xamwcbi and prescription medicines only as told by [...] and water are not available, use hand pattern room attendant. ??? Change your dressing and packing as [...] provider. Document Revised: 01/29/2019 Document Reviewed: 01/29/2019 [employer] Patient Education ?? 2020 [employer] Outpatient Surgery, Adult, Care After These [...] and water are not available, use hand pattern room attendant. ? Change your dressing as told by [...] or a bad smell. Medicines ??? Take cyqi-cvy-gxxvmgx and prescription medicines only as told by [...] provider. Document Revised: 05/29/2018 Document Reviewed: 06/20/2016 [employer] Patient Education ?? 2020 Elsevier Inc. General [...] activities are safe for you. ??? Take xfyt-wte-aulzbgu and prescription medicines only as told by [...] provider. Document Revised: 03/03/2018 Document Reviewed: 10/14/2017 [employer] Patient Education ?? 2020 [employer]. Emergency Awareness and Preventative Care STROKE is [...] Assistance with quitting is available by contacting 0-862-DEAG-NOW. This is a free resource providing counseling, [...] range between ( 1.0 and 7.0 ) [place] #: 0.23 K/uL -- Normal range between ( 0.24 and 0.82 ) Eos #: 0.03 K/uL -- Normal range between ( 0.04 and 0.54 ) Hood %: 3.2 % -- Normal range between [...] was given the opportunity to ask questions. Patient/Director Blood Bank Name: Patient/Director Blood Bank Signature: Relationship to Patient: Clinician/Hospital Director Blood Bank Signature: Date: documented in this encounter Plan of Treatment Not on file documented as of this encounter Visit Diagnoses Not on filedocumented in this encounter Care Teams Cash Management Specialist Relationship Specialty Start Date End Date Mari Carrero, LEAD SOLUTIONS ARCHITECT [address] [place] [address] PCP - General Nurse Practitioner 08/10/23 documented as of this encounter
== END 2024-10-19 23:59 | disposition home or self-care (01) ==
LOC: LAB.DROPOF 10-24 09:15
PROVIDERS: PCP Nurse Practitioner Family; Visit Provider Nurse Practitioner Family
DX: N39.0 Urinary tract infection, site not specified (principal)
CPT/HCPCS: 81001; 87086

== ENCOUNTER 2024-11-27 16:15 | Outpatient (CLI) | payer MEDICARE, SELFPAY ==
[2024-11-27 17:09] LABS: Microscopic, Urine URINE MICROSCOPIC (MICROSCOPIC)
[2024-11-27 17:36] LABS: Bilirubin,Urine Negative (Negative); Color,Urine YELLOW (Yellow); Glucose,Urine (UA) 3+ (Negative); Ketones,Urine Negative (Negative); Leukocyte Esterase,Urine Negative (Negative); PH,Urine 5.5 (5.0-8.5); Protein,Urine Negative (Negative); Specific Gravity, Urine 1.010 (1.005-1.030); Urobilinogen,Urine 0.2 EU/dl (0.2)
[2024-11-27 17:56] LABS: Hemoglobin A1C 11.0 % (4.0-6.0)
[2024-11-27 17:59] LABS: Alanine Aminotransferase 15 U/L (12-78); Albumin Level 4.0 g/dl (3.5-5.0); Albumin/Globulin Ratio 1.2 (1.1-1.8); Alkaline Phosphatase 87 U/L (38-126); Anion Gap 12.5 mEq/L (5-15); Aspartate Amino Transferase 20 U/L (14-36); Bilirubin,Total 0.5 mg/dl (0.2-1.3); Blood Urea Nitrogen 16 mg/dl (7-17); Calcium 9.5 mg/dl (8.4-10.2); Carbon Dioxide 23 mmol/L (22.0-30.0); Chloride 103 mmol/L (98-107); Creatinine,Serum 0.60 mg/dl (0.52-1.04); Estimated Glomerular Filt Rate 99 ml/min (>60); GFR (African American) 120 ML/MIN (>60); Globulin 3.3 g/dL (1.3-3.2); Glucose 246 mg/dl (74-100); Potassium 4.5 mmoL/L (3.5-5.1); Sodium 134 mmol/L (136-145); Total Protein,Serum 7.3 g/dl (6.3-8.2)
[2024-11-27 18:15] LABS: Bacteria,Urine Trace /lpf; WBC,Urine Occasional #/hpf (0-3)
--- OUTSIDE RECORDS SUMMARY | 2024-11-28 12:44 | XMS_ITS | Encounter Summary ---
Author Organization [employer] ([place], [place], [place], [place]) Address [address] [place] [address] Care Team Providers Care Relief Manager Name Role Phone Mari Carrero APRN Primary Care Provider Encounter Details Date Type Department Care Team (Late st Contact Info) Description 11/05/2020 Transcribed Document [facility] [place] [facility] [place] [address] ProviderRoselyn MD [address] [place] [address] Social History Tobacco Use Types Packs/Day [...] Roselyn ProviderMD - 11/05/2020 3:09 PM CDT [address] [address] ANN MARIE BUSH :1955 Visit [...] EDT Where: [address] [place] [address]- [facility] (1) Medications What How Much When Instructions Next Dose acetaminophen-hydrocodone ([place] 10 mg-325 mg oral tablet) 1 Tablet(s) [...] (fluticasone 50 mcg/ inh nasal spray) 2 [place](s) Nasal Every Day furosemide (furosemide 40 mg [...] these instructions at home: Medicines ??? Take jlvt-zmm-mwotkzb and prescription medicines only as told by [...] and water are not available, use hand canvas shop laborer. ??? Change your dressing and packing as [...] provider. Document Revised: 01/29/2019 Document Reviewed: 01/29/2019 [employer] Patient Education ?? 2020 [employer] Outpatient Surgery, Adult, Care After These [...] and water are not available, use hand canvas shop laborer. ? Change your dressing as told by [...] or a bad smell. Medicines ??? Take maql-jhx-nynrgrt and prescription medicines only as told by [...] provider. Document Revised: 05/29/2018 Document Reviewed: 06/20/2016 [employer] Patient Education ?? 2020 Elsevier Inc. General [...] activities are safe for you. ??? Take gmzq-syw-szbvrqy and prescription medicines only as told by [...] provider. Document Revised: 03/03/2018 Document Reviewed: 10/14/2017 [employer] Patient Education ?? 2020 [employer]. Emergency Awareness and Preventative Care STROKE is [...] Assistance with quitting is available by contacting 4-571-ZAOB-NOW. This is a free resource providing counseling, [...] range between ( 1.0 and 7.0 ) [place] #: 0.23 K/uL -- Normal range between ( 0.24 and 0.82 ) Eos #: 0.03 K/uL -- Normal range between ( 0.04 and 0.54 ) [place] %: 3.2 % -- Normal range between [...] was given the opportunity to ask questions. Patient/Pit Worker Power Shovel Name: Patient/Pit Worker Power Shovel Signature: Relationship to Patient: Clinician/Hospital Pit Worker Power Shovel Signature: Date: documented in this encounter Plan of Treatment Not on file documented as of this encounter Visit Diagnoses Not on filedocumented in this encounter Care Teams Relief Manager Relationship Specialty Start Date End Date Mari Carrero, CARRIER LOADER [address] [place] [address] PCP - General Nurse Practitioner 08/10/23 documented as of this encounter
--- OUTSIDE RECORDS SUMMARY | 2024-11-28 12:44 | XMS_ITS | Encounter Summary ---
Author Organization [facility] Address [address] [place] [address] Care Team Providers Care Mobility Specialist Name Role Phone Reynold Khan MD Primary Care Provider [phone] Encounter Details Date Type Department Care Team (Late st Contact Info) Description 07/19/2022 Lab Requisition [facility] [address] [place] [address] Maxwell Neal MD [address] [place] [address] Encounter for general adult medical [...] Date of Assessment Author Initial/First Attempt Date [address]19 07/19/2022 2:0 0 PM EDT Maliha Bond [...] AM EDT HEALTHCARE LAB Swab (Nares and Maira R Rectal) 07/19/2022 11:27 AM EDT 07/19/2022 5:50 PM EDT Maxwell De Jesus MD LAB MICROBIOLOGY - GENERAL ORDERABLES Final Result Performing Organization Address City/State/[facility] Co de Phone Number HEALTHCARE LAB [address] [place] [address] documented in this encounter Visit Diagnoses Diagnosis Encounter for general adult medical examination without abnormal findings documented in this encounter Care Teams Mobility Specialist Relationship Specialty Start Date End Date Reynold Khan MD [address] [place] [address] PCP - General 07/25/20 documented as of this encounter
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
--- OUTSIDE RECORDS SUMMARY | 2024-11-28 12:44 | XMS_ITS | Encounter Summary ---
Author Organization [employer] ([place], [place], [place], [place]) Address [address] [place] [address] Care Team Providers Care Claim Technician Name Role Phone Mari Carrero APRN Primary Care Provider Encounter Details Date Type Department Care Team (Late st Contact Info) Description 11/05/2020 Transcribed Document [facility] [place] [facility] [place] [address] ProviderRoselyn MD [address] [place] [address] Social History Tobacco Use Types Packs/Day [...] these instructions at home: Medicines ??? Take rnuy-rcr-wytglkp and prescription medicines only as told by [...] and water are not available, use hand territory sales representative. ??? Change your dressing and [...] provider. Document Revised: 01/29/2019 Document Reviewed: 01/29/2019 [employer] Patient Education ? 2020 Elsevier Inc. Pharmacology [...] activities are safe for you. ??? Take szcg-pys-ogcqdzg and prescription medicines only as told by [...] provider. Document Revised: 03/03/2018 Document Reviewed: 10/14/2017 [employer] Patient Education ? 2020 [employer] Procedures Outpatient Surgery, Adult, Care After [...] and water are not available, use hand territory sales representative. ? Change your dressing as [...] or a bad smell. Medicines ??? Take nwcl-acm-sdwvyjl and prescription medicines only as told by [...] provider. Document Revised: 05/29/2018 Document Reviewed: 06/20/2016 [employer] Patient Education ? 2020 [employer] documented in this encounter Plan of Treatment Not on file documented as of this encounter Visit Diagnoses Not on filedocumented in this encounter Care Teams Claim Technician Relationship Specialty Start Date End Date Mari Carrero APRN [address] [address] PCP - General Nurse Practitioner 08/10/23 documented as of this encounter
--- OUTSIDE RECORDS SUMMARY | 2024-11-28 12:44 | XMS_ITS | Clinical Summary ---
Author Organization [employer] ([place], [place], [place], [place]) Address [address] [place] [address] Care Team Providers Care Tool And Die Machinist Name Role Phone Mari Carrero STEWARD/STEWARDESS DECK Primary Care Provider Allergies Active Allergy Reactions [...] Depressive disorder 10/29/2020 06/23/2023 08/10/19 24 Immunizations Immunization Administration Dates Next Due Influenza High Dose Preservative Free IM ([id number] ) 03/31/2020 Influenza Quad-qiv Non Pf 01/23/2018 [...] Date Silviano rded Speak language other than Bulgarian at home Not on file 05/25/2023 Want [...] - Risk 60-74 years 1-dose series) 2014 Falls Risk Screening 03/14/2024 Medicare Initial AWV [id number] 05/13/2024 Tobacco Cessation Counseling and Screening (12+) 08/09/2024 08/10/2023 COVID-19 VACCINE (2 - 2024-2 6 season) 2024 06/20/2020 Influenza Vaccine (#1) 2024 , 03/31/2020, 01/23/2018, Additional history exists Pneumococcal 50+ years (3 of 3 - PCV20 or PCV21) 03/31/2025 03/31/2020, 03/19/2010 Colonoscopy 08/09/2028 08/10/2023 Colorectal Cancer Screening 08/09/2028 Insurance [facility] MEDICARE ADVANTAGE Care Teams Tool And Die Machinist Relationship Specialty Start Date End Date Mari Carrero, STEWARD/STEWARDESS DECK [address] [place] [address] PCP - General Nurse Practitioner 08/10/23
--- OUTSIDE RECORDS SUMMARY | 2024-11-28 12:44 | XMS_ITS | Encounter Summary ---
Author Organization [employer] ([place], [place], [place], [place]) Address [address] [place] [address] Care Team Providers Care Proposal Engineer Name Role Phone Mari Carrero APRN Primary Care Provider Encounter Details Date Type Department Care Team (Late st Contact Info) Description 11/05/2020 Transcribed Document [facility] [place] [facility] [place] [address] ProviderRoselyn MD [address] [place] [address] Social History Tobacco Use Types Packs/Day [...] Date/Time: 11/05/20 15:08:22 Pt. Name: ANN MARIE BUSH /Sex: 1955 Female Med Rec #: [id number] Physician: DONY CERVANTES MD-OBG Financial #: [id number] Pt. Type: O Room/Bed: [facility] Admit/Disch: 11/05/20 09:46:00 - [place]: [facility] [place] PACU Case Times Entry 1 In PACU I 11/05/20 13:56:00 Ready for PACU 11/05/20 14:55:00 Discharge Discharge from PACU 11/05/20 14:55:00 I Last Modified By: BLANCA KEYS RN 11/05/20 15:08:20 Finalized By: BLANCA KEYS RN Document Signatures Signed By: BLANCA KEYS RN 11/05/20 15:08 Electronically signed by [facility] Conversion Carton Repairer Cerner at 06/27/2022 8:34 PM CDT documented in this encounter Plan of Treatment Not on file documented as of this encounter Visit Diagnoses Not on filedocumented in this encounter Care Teams Proposal Engineer Relationship Specialty Start Date End Date Mari Carrero, PLANT ASSIGNER [address] [place] [address] PCP - General Nurse Practitioner 08/10/23 documented as of this encounter
--- OUTSIDE RECORDS SUMMARY | 2024-11-28 12:44 | XMS_ITS | Referral Summary ---
Author Organization [employer] ([place], [place], [place], [place]) Address [address] [place] [address] Care Team Providers Care Sticker On Name Role Phone Mari Carrero ACCOUNT RETENTION REPRESENTATIVE Primary Care Provider Allergies Active Allergy Reactions [...] Due Influenza High Dose Preservative Free IM (DER804 ) 03/31/2020 Influenza Quad-qiv Non Pf 01/23/2018 [...] Date Silviano rded Speak language other than [place]er at home Not on file 05/25/2023 Want [...] Plan of Treatment Not on file Insurance [facility] MEDICARE ADVANTAGE Care Teams Sticker On Relationship Specialty Start Date End Date aMri Carrero, ACCOUNT RETENTION REPRESENTATIVE [address] [place] [address] PCP - General Nurse Practitioner 08/10/23
--- OUTSIDE RECORDS SUMMARY | 2024-11-28 12:44 | XMS_ITS | Encounter Summary ---
Author Organization [employer] ([place], [place], [place], [place]) Address [address] [place] [address] Care Team Providers Care City Editor Name Role Phone Mari Carrero APRN Primary Care Provider Encounter Details Date Type Department Care Team (Late st Contact Info) Description 11/04/2020 Transcribed Document [facility] [place] Family Medicine [address] [place] [address] ProviderRoselyn MD [address] [place] [id number] Social History Tobacco Use Types Packs/Day Years [...] to me by Dr. Main Paez in [place], [place], with a problem of an inflammatory [...] SOCIAL HISTORY: The patient is a one viwl-inu-ahy cigarette smoker. PHYSICAL EXAMINATION: GENERAL: Shows a [...] extension. ASSESSMENT: As above. PLAN: As above. /[id number] MD ANG Del AngelB/PER / LSBianca / MODL Electronically signed by [facility] Conversion Jet Engine Mechanic Cerner at 06/27/2022 8:21 PM CDT documented in this encounter Plan of Treatment Not on file documented as of this encounter Visit Diagnoses Not on filedocumented in this encounter Care Teams City Editor Relationship Specialty Start Date End Date Mari Carrero, CERT OCCUPATIONAL THERAPY ASST [address] [address] PCP - General Nurse Practitioner 08/10/23 documented as of this encounter
--- OUTSIDE RECORDS SUMMARY | 2024-11-28 12:44 | XMS_ITS | Encounter Summary ---
Author Organization [employer] ([place], [place], [place], [place]) Address [address] [place] [address] Care Team Providers Care Parquetry Layer Name Role Phone Mari Carrero APRN Primary Care Provider Encounter Details Date Type Department Care Team (Late st Contact Info) Description 11/05/2020 Transcribed Document [facility] [place] [address] [place] [address] ProviderRoselyn MD [address] [place] [address] [phone] Social History Tobacco Use Types Packs/Day Years [...] was drained by Dr. Main Paez in [facility], was purulent, but it has been present [...] the top part, but we put a Imogene drain in for drainage and sutured it to the skin with 2-0 Vicryl and closed the skin with louie. The patient was taken to postop recovery room in satisfactory condition and she was given and clindamycin as preop clinical antibiotics. ESTIMATED BLOOD LOSS: Approximately 15 to 20 mL. /[id number] Zane Redman MD LSB/AQ / LSB / MODL /[id number] documented in this encounter Plan of Treatment Not on file documented as of this encounter Visit Diagnoses Not on filedocumented in this encounter Care Teams Parquetry Layer Relationship Specialty Start Date End Date Mari Carrero APRN [address] [address] PCP - General Nurse Practitioner 08/10/23 documented as of this encounter
--- OUTSIDE RECORDS SUMMARY | 2024-11-28 12:44 | XMS_ITS | Encounter Summary ---
Author Organization [employer] ([place], [place], [place], [place]) Address [address] [place] [address] Care Team Providers Care Toeing Stockings Name Role Phone Mari Carrero APRN Primary Care Provider [phone] Encounter Details Date Type Department Care Team (Late st Contact Info) Description 11/05/2020 Transcribed Document [facility] [place] [address] ProviderRoselyn MD [address] [place] [address] Social History Tobacco Use Types Packs/Day [...] DOMINGUEZ /Sex: 1955 Female Med Rec #: [id number] Physician: DONY CERVANTES MD-OBG Financial #: [id number] Pt. Type: O Room/[facility]: [facility] Admit/Disch: 11/05/20 09:46:00 - Institution: [facility] [place]Op Case Attendance Entry 1 Entry 2 Entry 3 Case Attendee DONY CERVANTES MD-OBG ANNI GOODRICH APRN, Brock, Deanna MIX TECHNICIAN-ANS Role Performed Surgeon/Proceduralist, MIX TECHNICIAN/Nurse Grain Unloader Scrub, First First Time In 11/05/20 12:28:00 [...] Christianson RN-PATIENT CARE BEDSIDE NON-EXEMPT Role Performed Political Science Instructor, First Time In 11/05/20 12:28:00 Time Out 11/05/20 13:56:00 Procedure Mass Excision Genitalia Other Attendee Superficial Wound Closed By: Last Modified By: Brittani Christianson RN-PATIENT CARE BEDSIDE NON-EXEMPT 11/05/20 13:56:02 [facility] IntraOp Case Attendance Audit 11/05/20 13:56:02 Clinic Physician Director: [id number] Modifier: [id number] <+> Time Out 1 <*> Procedure Mass Excision Genitalia 2 <+> Time Out 2 <*> Procedure Mass Excision Genitalia 3 <+> Time Out 3 <*> Procedure Mass Excision Genitalia 4 <+> Time Out 4 <*> Procedure Mass Excision Genitalia 11/05/20 13:10:37 Clinic Physician Director: [id number] Modifier: [id number] <+> Time In 1 <*> Procedure Mass Excision Genitalia 2 <+> Time In 2 <*> Procedure Mass Excision Genitalia 3 <+> Time In 3 <*> Procedure Mass Excision Genitalia 4 <+> Time In 4 <*> Procedure Mass Excision Genitalia 11/05/20 12:53:31 Clinic Physician Director: [id number] Modifier: [id number] <+> 2 Case Attendee <+> 2 Role [...] [facility] IntraOp Case Times Audit 11/05/20 13:55:49 Clinic Physician Director: [id number] Modifier: [id number] <+> 1 Out Room Time <+> 1 [...] Patient Transport ANNI GOODRICH APRN, Accompanied by MIX TECHNICIAN-ANS, Brittani Christianson RN-PATIENT CARE BEDSIDE NON-EXEMPT Last Modified By: Brittani Christianson RN-PATIENT CARE BEDSIDE NON-EXEMPT 11/05/20 13:04:23 [facility] IntraOp Drains and Tubes Entry 1 Device Type Elon Size 1/4 Drain/Tube Activity Inserted Method of [...] Fire Risk Yes Assessment Complete Fire Risk Britatni Christianson, Assessment Verified RN-PATIENT CARE BEDSIDE By NON-EXEMPT Fire Risk 11/05/20 13:06:00 Assessment Verified Date/Time Fire Risk Standard Fire Yes Safety Precautions Followed Last Modified By: Brittani Christianson RN-PATIENT CARE BEDSIDE NON-EXEMPT 11/05/20 13:06:09 [facility] IntraOp General Case Assembler Fitter 1 Case Information OR OR 04 [facility] [...] 0.5% w/ epinephrine 1:200,000 30ml vial - [id number] Route of TO FIELD Administration Dose Dose [...] Intra Op Sign Out Audit 11/05/20 13:55:56 Clinic Physician Director: [id number] Modifier: [id number] <+> 1 RN Sign Out Signature Date/Time [...] [facility] IntraOp Surgical Procedures Audit 11/05/20 13:56:01 Clinic Physician Director: [id number] Modifier: [id number] <+> 1 Stop 11/05/20 13:09:58 Clinic Physician Director: [id number] Modifier: [id number] <+> 1 Start [facility] IntraOp Temp Regulation Devices Entry 1 Temp Regulation Temperature Forced Air Warming Regulation Device device Temperature Upper body Regulation Site Temperature Device HIGH Setting Temperature ANNI GOODRICH APRN, Regulation Device MIX TECHNICIAN-ANS Applied by Last Modified By: Brittani Christainson RN-PATIENT CARE BEDSIDE NON-EXEMPT 11/05/20 13:18:52 [facility] [...] NON-EXEMPT 11/05/20 13:56 Electronically signed by [facility] Conversion Safety And Health Manager Cerner at 06/27/2022 8:33 PM CDT documented in this encounter Plan of Treatment Not on file documented as of this encounter Visit Diagnoses Not on filedocumented in this encounter Care Teams Toeing Stockings Relationship Specialty Start Date End Date Mari Carrero, CONFIGURATION SPECIALIST [address] [place] [address] PCP - General Nurse Practitioner 08/10/23 documented as of this encounter
--- OUTSIDE RECORDS SUMMARY | 2024-11-28 12:44 | XMS_ITS | Encounter Summary ---
Author Organization [employer] ([place], [place], [place], [place]) Address [address] [place] [address] Care Team Providers Care Deckhand Fishing Vessel Name Role Phone Mari Carrero APRN Primary Care Provider Encounter Details Date Type Department Care Team (Late st Contact Info) Description 11/05/2020 Transcribed Document [facility] [place] Family Medicine [facility] [place] [address] ProviderRoselyn MD [address] [place] [address] Social History Tobacco Use Types Packs/Day [...] BUSH /Sex: 1955 Female Med Rec #: [id number] Physician: DONY CERVANTES MD-OBG Financial #: [id number] Pt. Type: O Room/Bed: [facility] Admit/Disch: 11/05/20 09:46:00 - Institution: [facility] Main OR PostOp Case Times Entry 1 In PACU II 11/05/20 15:00:00 Ready for PACU II 11/05/20 15:30:00 Discharge Discharge from PACU 11/05/20 15:45:00 II Last Modified By: KATHLEEN BRAMBILA, RN 11/05/20 16:01:57 [facility] Main OR PostOp Case Times Audit 11/05/20 16:01:57 Automotive Fleet Supervisor: ELDERJM Modifier: [email or web address] <+> 1 Discharge from PACU II 11/05/20 15:47:34 Automotive Fleet Supervisor: ELDERJM Modifier: [email or web address] <+> 1 Ready for PACU II Discharge Finalized By: KATHLEEN BRAMBILA, RN Document Signatures Signed By: KATHLEEN BRAMBILA RN 11/05/20 16:02 documented in this encounter Plan of Treatment Not on file documented as of this encounter Visit Diagnoses Not on filedocumented in this encounter Care Teams Deckhand Fishing Vessel Relationship Specialty Start Date End Date Mari Carrero, WATCH ENGINEER [address] [address] PCP - General Nurse Practitioner 08/10/23 documented as of this encounter
--- OUTSIDE RECORDS SUMMARY | 2024-11-28 12:44 | XMS_ITS | Clinical Summary ---
Author Organization [facility] Address [address] [place] [address] Care Team Providers Care Apiarist Name Role Phone Reynold Khan MD Primary Care Provider [phone] Allergies Active Allergy Reactions Criticality Noted Date [...] day. Active cholecalciferol (Vitamin D3) 1.25 MG (77649 UT) tablet Take 50,000 Units by mouth [...] No Healthcare Surrogate: Healthcare POA Care Teams Apiarist Relationship Specialty Start Date End Date Reynold Khan MD [address] [place] [address] PCP - General 07/25/20
--- OUTSIDE RECORDS SUMMARY | 2024-11-28 12:44 | XMS_ITS | Encounter Summary ---
Author Organization [employer] ([place], [place], [place], [place]) Address [address] [place] [address] Care Team Providers Care Mobile Health Vehicle Operator Name Role Phone Mari Carrero APRN Primary Care Provider Encounter Details Date Type Department Care Team (Late st Contact Info) Description 11/05/2020 Transcribed Document [facility] [place] [address] ProviderRoselyn MD [address] [place] [address] Social History Tobacco Use Types [...] Source : Stated Height Entry Format : [place] Height, Feet : 5 ft(Converted to: 152 cm, 60 Inch) Height, Inches : 2 Inch(Converted to: 0 ft 2 Inch, 5.08 cm) Clinical Height : 157.48 cm Weight Source : Standing scale Weight Entry Format : [place]kin Clinical Dosing Weight : 85.91 kg Weight, Pounds : 189 lb Body Surface Area (BSA) : 1.87 m2 Body Mass Index : 34.6 kg/m2 (HI) [place] Body Weight : 50 kg Alisha Munoz [...] Alisha Munoz Rn - 11/05/2020 10:40 EDT [place] Suicide Severity Rating Scale (C-SSRS) CSSRS Past [...] Obtained From : Patient Primary Language : Faroese Communication Barrier : None Press Operator Apprentice Needed : No Alisha Munoz Rn - [...] on filedocumented in this encounter Care Teams Mobile Health Vehicle Operator Relationship Specialty Start Date End Date aMri Carrero, MARTIR [address] [place] [address] PCP - General Nurse Practitioner 08/10/23 documented as of this encounter
--- OUTSIDE RECORDS SUMMARY | 2024-11-28 12:44 | XMS_ITS | Encounter Summary ---
Author Organization [employer] ([place], [place], [place], [place]) Address [address] [place] [address] Care Team Providers Care Control Room Agent Name Role Phone Mari Carrero APRN Primary Care Provider [phone] Encounter Details Date Type Department Care Team (Late st Contact Info) Description 11/05/2020 Transcribed Document [facility] [place] [facility] [place] [address] ProviderRoselyn MD [address] [place] [address] Social History Tobacco Use Types Packs/Day [...] DOMINGUEZ /Sex: 1955 Female Med Rec #: [id number] Physician: DONY CERVANTES MD-OBG Financial #: [id number] Pt. Type: O Room/Bed: [facility] Admit/Disch: 11/05/20 09:46:00 - Institution: [facility] [place] PreOp Case Times Entry 1 In Preop 11/05/20 09:55:00 Ready for Holding n/a Room Patient Ready for 11/05/20 10:30:00 Surgery Patient Out of Preop 11/05/20 12:20:00 Patient Out of n/a Holding Room Last Modified By: Katelyn Ga RN 11/05/20 17:26:05 [facility] PreOp Case Times Audit 11/05/20 17:26:05 Biscuitware Brusher: SULMA Modifier: [id number] <+> 1 Patient Out of Preop Finalized By: Katelyn Ga, RN Document Signatures Signed By: Katelyn Ga RN 11/05/20 17:26 documented in this encounter Plan of Treatment Not on file documented as of this encounter Visit Diagnoses Not on filedocumented in this encounter Care Teams Control Room Agent Relationship Specialty Start Date End Date Mari Carrero, ACADEMIC COMPUTING DIRECTOR [address] [place] [phone] PCP - General Nurse Practitioner 08/10/23 documented as of this encounter
== END 2024-11-27 23:59 | disposition home or self-care (01) ==
LOC: LAB.DROPOF 11-28 12:40
PROVIDERS: PCP Nurse Practitioner Family; Visit Provider Nurse Practitioner Family
DX: E11.69 Type 2 diabetes mellitus with other specified complication (principal); N76.0 Acute vaginitis; N39.0 Urinary tract infection, site not specified
CPT/HCPCS: 80053; 81001; 83036; 86628; 87086

== ENCOUNTER 2025-01-16 15:05 | Outpatient (CLI) | payer MEDICARE, SELFPAY ==
--- OUTSIDE RECORDS SUMMARY | 2025-01-17 20:23 | XMS_ITS | Encounter Summary ---
Author Organization [employer] ([place], [place], [place], [place], [place]) Address [address] [place] [address] Care Team Providers Care Childcare Director Name Role Phone Mari Carrero APRN Primary Care Provider Encounter Details Date Type Department Care Team (Late st Contact Info) Description 11/05/2020 Transcribed Document [facility] [place] [facility] [place] [address] ProviderRoselyn MD [address] [place] [address] Social History Tobacco Use Types Packs/Day [...] Date/Time: 11/05/20 17:26:06 Pt. Name: ANN MARIE BUSH /Sex: 1955 Female Med Rec #: [id number] Physician: DONY CERVANTES MD-OBG Financial #: [id number] Pt. Type: O Room/Bed: [facility] Admit/Disch: 11/05/20 09:46:00 - Institution: [facility] [place] PreOp Case Times Entry 1 In Preop 11/05/20 09:55:00 Ready for Holding n/a Room Patient Ready for 11/05/20 10:30:00 Surgery Patient Out of Preop 11/05/20 12:20:00 Patient Out of n/a Holding Room Last Modified By: Katelyn Ga RN 11/05/20 17:26:05 [facility] PreOp Case Times Audit 11/05/20 17:26:05 Registered Account Administrator: SULMA Modifier: [id number] <+> 1 Patient Out of Preop Finalized By: Katelyn Ga, RN Document Signatures Signed By: Katelyn Ga RN 11/05/20 17:26 Electronically signed by [facility] Conversion Linux Vmware Administrator Cerner at 06/27/2022 8:20 PM CDT documented in this encounter Plan of Treatment Not on file documented as of this encounter Visit Diagnoses Not on filedocumented in this encounter Care Teams Childcare Director Relationship Specialty Start Date End Date Mari Carrero, MARTIR [address] [place] [phone] PCP - General Nurse Practitioner 08/10/23 documented as of this encounter
--- OUTSIDE RECORDS SUMMARY | 2025-01-17 20:23 | XMS_ITS | Encounter Summary ---
Author Organization [employer] ([place], [place], [place], [place], [place]) Address [address] [place] [address] Care Team Providers Care Stopperer Assembler Name Role Phone Mari Carrero APRN Primary Care Provider Encounter Details Date Type Department Care Team (Late st Contact Info) Description 11/05/2020 Transcribed Document [facility] [place] [facility] [place] [address] ProviderRoselyn MD [address] [place] [address] Social History Tobacco Use Types Packs/Day [...] Date/Time: 11/05/20 16:02:04 Pt. Name: ANN MARIE BUSHPasha Combs/Sex: 1955 Female Med Rec #: [id number] Physician: DONY CERVANTES MD-OBG Financial #: [id number] Pt. Type: O Room/Bed: [facility] Admit/Disch: 11/05/20 09:46:00 - Institution: [facility] Main [place] PostOp Case Times Entry 1 In PACU II 11/05/20 15:00:00 Ready for PACU II 11/05/20 15:30:00 Discharge Discharge from PACU 11/05/20 15:45:00 II Last Modified By: KATHLEEN BRAMBILA, DEAN 11/05/20 16:01:57 [facility] Main OR PostOp Case Times Audit 11/05/20 16:01:57 Aerospace Technician: ELDERJM Modifier: [email or web address] <+> 1 Discharge from PACU II 11/05/20 15:47:34 Aerospace Technician: ELDERJM Modifier: [email or web address] <+> 1 Ready for PACU II Discharge Finalized By: KATHLEEN BRAMBILA, RN Document Signatures Signed By: KATHLEEN BRAMBILA, DEAN 11/05/20 16:02 documented in this encounter Plan of Treatment Not on file documented as of this encounter Visit Diagnoses Not on filedocumented in this encounter Care Teams Stopperer Assembler Relationship Specialty Start Date End Date Mari Carrero, ROTARY FURNACE TENDER [address] [place] [phone] PCP - General Nurse Practitioner 08/10/23 documented as of this encounter
--- OUTSIDE RECORDS SUMMARY | 2025-01-17 20:23 | XMS_ITS | Encounter Summary ---
Author Organization [employer] ([place], [place], [place], [place], [place]) Address [address] [place] [address] Care Team Providers Care Rn Telehealth Name Role Phone Mari Carrero APRN Primary Care Provider Encounter Details Date Type Department Care Team (Late st Contact Info) Description 11/05/2020 Transcribed Document [facility] [place] [facility] [place] [address] ProviderRoselyn MD [address] [place] [address] Social History Tobacco Use Types Packs/Day [...] MD-OBG Finalized Date/Time: 11/05/20 15:08:22 Pt. Name: ELEAZARANN MARIEPasha Combs/Sex: 1955 Female Med Rec #: [id number] Physician: DONY CERVANTES MD-OBG Financial #: [id number] Pt. Type: O Room/Bed: [facility] Admit/Disch: 11/05/20 09:46:00 - Institution[place] [facility] [place] PACU Case Times Entry 1 In PACU I 11/05/20 13:56:00 Ready for PACU 11/05/20 14:55:00 Discharge Discharge from PACU 11/05/20 14:55:00 I Last Modified By: BLANCA KEYS RN 11/05/20 15:08:20 Finalized By: BLANCA KEYS RN Document Signatures Signed By: BLANCA KEYS RN 11/05/20 15:08 Electronically signed by [facility] Conversion [employer] Cord Cerner at 06/27/2022 8:34 PM CDT documented in this encounter Plan of Treatment Not on file documented as of this encounter Visit Diagnoses Not on filedocumented in this encounter Care Teams Rn Telehealth Relationship Specialty Start Date End Date Mari Carrero, CHASER HELPER [address] [place] [address] PCP - General Nurse Practitioner 08/10/23 documented as of this encounter
--- OUTSIDE RECORDS SUMMARY | 2025-01-17 20:23 | XMS_ITS | Encounter Summary ---
Author Organization [employer] ([place], [place], [place], [place], [place]) Address [address] [place] [address] Care Team Providers Care Software Test Automation Engineer Name Role Phone Mari Carrero APRN Primary Care Provider Encounter Details Date Type Department Care Team (Late st Contact Info) Description 11/05/2020 Transcribed Document [facility] [place] [facility] [place] [address] ProviderRoselyn MD [address] [place] [address] Social History Tobacco Use Types Packs/Day Years Used Date Smoking Tobacco: Never Assessed Comments Unknown Sex and Gender Information Value Date Recorded Sex Assigned at Not on file Legal Sex Female 6:09 PM CDT Gender Identity Not on file Sexual Orientation Not on file documented as of this encounter Miscellaneous Notes * Cerner Conversion Note - Roselyn Bocanegra MD - 11/05/2020 3:09 PM CDT [place] [phone] ANN MARIE BUSH :1955 Visit Time:11/05/2020 What [...] CERVANTES When 11/12/2020 01:00 PM EDT Where: [address] [place] [address] [address] [place] [address]- Business (1) Medications What How Much When Instructions Next Dose acetaminophen-hydrocodone (Fillmore 10 mg-325 mg oral tablet) 1 Tablet(s) [...] (fluticasone 50 mcg/ inh nasal spray) 2 Reynolds(s) Nasal Every Day furosemide (furosemide 40 mg [...] these instructions at home: Medicines ??? Take oktz-llf-rrzkeah and prescription medicines only as told by [...] are not available, use hand director of contracts. ??? Change your dressing and packing as [...] provider. Document Revised: 01/29/2019 Document Reviewed: 01/29/2019 [employer] Patient Education ?? 2020 [employer] Outpatient Surgery, Adult, Care After These [...] are not available, use hand director of contracts. ? Change your dressing as told by [...] or a bad smell. Medicines ??? Take ysjx-vgd-hinybzd and prescription medicines only as told by [...] provider. Document Revised: 05/29/2018 Document Reviewed: 06/20/2016 [employer] Patient Education ?? 2020 [employer] General Anesthesia, Adult, Care After This [...] activities are safe for you. ??? Take rael-rvb-etfjaem and prescription medicines only as told by [...] provider. Document Revised: 03/03/2018 Document Reviewed: 10/14/2017 [employer] Patient Education ?? 2020 [employer]. Emergency Awareness and Preventative Care STROKE is [...] Assistance with quitting is available by contacting 8-635-DGRX-NOW. This is a free resource providing counseling, [...] range between ( 1.0 and 7.0 ) Routt #: 0.23 K/uL -- Normal range between ( 0.24 and 0.82 ) Eos #: 0.03 K/uL -- Normal range between ( 0.04 and 0.54 ) Routt %: 3.2 % -- Normal range between [...] was given the opportunity to ask questions. Patient/Chainstitch Tunnel Elastic Operator Name: Patient/Chainstitch Tunnel Elastic Operator Signature: Relationship to Patient: Clinician/Hospital Chainstitch Tunnel Elastic Operator Signature: Date: documented in this encounter Plan of Treatment Not on file documented as of this encounter Visit Diagnoses Not on filedocumented in this encounter Care Teams Software Test Automation Engineer Relationship Specialty Start Date End Date Mari Carrero, PACKERHEAD MACHINE OPERATOR [address] [place] [address] PCP - General Nurse Practitioner 08/10/23 documented as of this encounter
--- OUTSIDE RECORDS SUMMARY | 2025-01-17 20:23 | XMS_ITS | Encounter Summary ---
Author Organization [employer] ([place], [place], [place], [place], [place]) Address [address] [place] [address] Care Team Providers Care Cyber Software Engineer Name Role Phone Mari Carrero APRN Primary Care Provider Encounter Details Date Type Department Care Team (Late st Contact Info) Description 11/05/2020 Transcribed Document [facility] Family Medicine [facility] [address] ProviderRoselyn MD [address] [place] [address] Social History Tobacco Use Types Packs/Day [...] Source : Stated Height Entry Format : [place] Height, Feet : 5 ft(Converted to: 152 cm, 60 Inch) Height, Inches : 2 Inch(Converted to: 0 ft 2 Inch, 5.08 cm) Clinical Height : 157.48 cm Weight Source : Standing scale Weight Entry Format : [place] Clinical Dosing Weight : 85.91 kg Weight, Pounds : 189 lb Body Surface Area (BSA) : 1.87 m2 Body Mass Index : 34.6 kg/m2 (HI) [place] Body Weight : 50 kg Alisha Munoz [...] 1. (Last Updated: 10/10/2014 17:59:42 EDT by JRAED READ RN) Alcohol: Alcohol Use History No. [...] Exposed to COVID19 symptoms since test? : Alisha Lockhart Rn - 11/05/2020 10:40 EDT Anesthesia/Transfusion History [...] Alisha Munoz Rn - 11/05/2020 10:40 EDT [place] Suicide Severity Rating Scale (C-SSRS) CSSRS Past [...] Admit : No Emergency Contact #1 : Agatha Chan Alisha Munoz Rn - 11/05/2020 10:40 EDT Emergency Contact #1 Alisha Munoz Rn - 11/05/2020 11:34 EDT Emergency Contact #1 Relationship : Son Emergency Contact #2 : . Emergency Contact #2 Phone Number : . Emergency Contact #2 Relationship : . Information Obtained From : Patient Primary Language : Angolan Communication Barrier : None Job Development Specialist Needed : No Alisha Munoz Rn [...] on filedocumented in this encounter Care Teams Cyber Software Engineer Relationship Specialty Start Date End Date Mari Carrero, PUMP OILER [address] [phone] PCP - General Nurse Practitioner 08/10/23 documented as of this encounter
--- OUTSIDE RECORDS SUMMARY | 2025-01-17 20:23 | XMS_ITS | Referral Summary ---
Author Organization [employer] ([place], [place], [place], [place], [place]) Address [address] [place] [address] Care Team Providers Care Reject Opener Name Role Phone Mari Carrero APRN Primary Care Provider [phone] Allergies Active Allergy Reactions Criticality Noted Date [...] 2 diabetes mellitus 06/23/2023 06/23/2023 Osteopenia 06/23/2023 06/23/202308/10/2023 Dysphagia, unspecified type 06/23/2023 08/10/2023 Depressive disorder 10/29/2020 06/23/2023 08/10/19 24 Immunizations Immunization Administration Dates Next Due Influenza High Dose Preservative Free IM ([id number] ) 03/31/2020 Influenza Quad-qiv Non Pf 01/23/2018 [...] Plan of Treatment Not on file Insurance [facility] MEDICARE ADVANTAGE Care Teams Reject Opener Relationship Specialty Start Date End Date Mari Carrero, HVAC R TECH [address] [place] [address] PCP - General Nurse Practitioner 08/10/23
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
--- OUTSIDE RECORDS SUMMARY | 2025-01-17 20:23 | XMS_ITS | Encounter Summary ---
Author Organization [employer] ([place], [place], [place], [place], [place]) Address [address] [place] [address] Care Team Providers Care Framer Name Role Phone Mari Carrero APRN Primary Care Provider Encounter Details Date Type Department Care Team (Late st Contact Info) Description 11/05/2020 Transcribed Document [facility] [place] [address] ProviderRoselyn MD [address] [place] [address] Social History Tobacco Use Types Packs/Day [...] DOMINGUEZ /Sex: 1955 Female Med Rec #: [id number] Physician: DONY CERVANTES MD-OBG Financial #: [id number] Pt. Type: O Room/Bed: [facility] Admit/Disch: 11/05/20 09:46:00 - Institution: [facility] IntraOp Case Attendance Entry 1 Entry 2 Entry 3 Case Attendee DONY CERVANTES MD-OBG ANNI GOODRICH APRN, Brock, Deanna DIRECTOR OF SOCIAL WORK-ANS Role Performed Surgeon/Proceduralist, DIRECTOR OF SOCIAL WORK/Nurse Telesales Specialist Scrub, First First Time In 11/05/20 12:28:00 [...] Christianson RN-PATIENT CARE BEDSIDE NON-EXEMPT Role Performed [place], First Time In 11/05/20 12:28:00 Time Out 11/05/20 13:56:00 Procedure Mass Excision Genitalia Other Attendee Superficial Wound Closed By: Last Modified By: Brittani Christianson RN-PATIENT CARE BEDSIDE NON-EXEMPT 11/05/20 13:56:02 [facility] IntraOp Case Attendance Audit 11/05/20 13:56:02 Electorate Officer: [id number] Modifier: [id number] <+> Time Out 1 <*> Procedure Mass Excision Genitalia 2 <+> Time Out 2 <*> Procedure Mass Excision Genitalia 3 <+> Time Out 3 <*> Procedure Mass Excision Genitalia 4 <+> Time Out 4 <*> Procedure Mass Excision Genitalia 11/05/20 13:10:37 Electorate Officer: [id number] Modifier: [id number] <+> Time In 1 <*> Procedure Mass Excision Genitalia 2 <+> Time In 2 <*> Procedure Mass Excision Genitalia 3 <+> Time In 3 <*> Procedure Mass Excision Genitalia 4 <+> Time In 4 <*> Procedure Mass Excision Genitalia 11/05/20 12:53:31 Electorate Officer: [id number] Modifier: [id number] <+> 2 Case Attendee <+> 2 Role [...] [facility] IntraOp Case Times Audit 11/05/20 13:55:49 Electorate Officer: [id number] Modifier: [id number] <+> 1 Out Room Time <+> 1 [...] Patient Transport ANNI GOODRICH APRN, Accompanied by DIRECTOR OF SOCIAL WORK-ANS, Brittani Christianson RN-PATIENT CARE BEDSIDE NON-EXEMPT Last Modified By: Brittani Christianson RN-PATIENT CARE BEDSIDE NON-EXEMPT 11/05/20 13:04:23 [facility] IntraOp Drains and Tubes Entry 1 Device Type [place] Size 1/4 Drain/Tube Activity Inserted Method of [...] NON-EXEMPT 11/05/20 13:06:09 [facility] IntraOp General Case Insurance Application Investigator 1 Case Information OR OR 04 [facility] [...] 0.5% w/ epinephrine 1:200,000 30ml vial - [id number] Route of TO FIELD Administration Dose Dose [...] Intra Op Sign Out Audit 11/05/20 13:55:56 Electorate Officer: [id number] Modifier: [id number] <+> 1 RN Sign Out Signature Date/Time [...] [facility] IntraOp Surgical Procedures Audit 11/05/20 13:56:01 Electorate Officer: [id number] Modifier: [id number] <+> 1 Stop 11/05/20 13:09:58 Electorate Officer: [id number] Modifier: [id number] <+> 1 Start [facility] IntraOp Temp Regulation Devices Entry 1 Temp Regulation Temperature Forced Air Warming Regulation Device device Temperature Upper body Regulation Site Temperature Device HIGH Setting Temperature ANNI GOODRICH APRN, Regulation Device DIRECTOR OF SOCIAL WORK-ANS Applied by Last Modified By: Brittani Christianson [...] NON-EXEMPT 11/05/20 13:56 Electronically signed by Marion [facility] Conversion Qualitative Researcher Cerner at 06/27/2022 8:33 PM CDT documented in this encounter Plan of Treatment Not on file documented as of this encounter Visit Diagnoses Not on filedocumented in this encounter Care Teams Framer Relationship Specialty Start Date End Date Mari Carrero, DIRECTOR VIDEO [address] [place] [address] PCP - General Nurse Practitioner 08/10/23 documented as of this encounter
--- OUTSIDE RECORDS SUMMARY | 2025-01-17 20:23 | XMS_ITS | Clinical Summary ---
Author Organization [facility] Address [address] [place] [address] Care Team Providers Care Cracking Machine Operator Name Role Phone Reynold Khan MD Primary Care Provider [phone] Allergies Active Allergy Reactions Criticality Noted Date [...] day. Active cholecalciferol (Vitamin D3) 1.25 MG (28973 UT) tablet Take 50,000 Units by mouth [...] No Healthcare Surrogate: Healthcare POA Care Teams Cracking Machine Operator Relationship Specialty Start Date End Date Reynold Khan MD [address] [place] [address] PCP - General 07/25/20
--- OUTSIDE RECORDS SUMMARY | 2025-01-17 20:23 | XMS_ITS | Clinical Summary ---
Author Organization [employer] ([place], [place], [place], [place], [place]) Address [address] [place] [address] Care Team Providers Care Asphalt Layer Name Role Phone Mari Carrero APRN [...] Due Influenza High Dose Preservative Free IM ([id number] ) 03/31/2020 Influenza Quad-qiv Non Pf 01/23/2018 [...] Date Silviano rded Speak language other than Irish at home Not on file 05/25/2023 Want [...] 08/09/2028 08/10/2023 Colorectal Cancer Screening 08/09/2028 Insurance [facility] MEDICARE ADVANTAGE Care Teams Asphalt Layer Relationship Specialty Start Date End Date Mari Carrero, PASTRY DECORATOR [address] [address] PCP - General Nurse Practitioner 08/10/23
--- OUTSIDE RECORDS SUMMARY | 2025-01-17 20:23 | XMS_ITS | Encounter Summary ---
Author Organization [employer] ([place], [place], [place], [place], [place]) Address [address] [place] [address] Care Team Providers Care Infrastructure Software Engineer Name Role Phone Mari Carrero APRN Primary Care Provider [phone] Encounter Details Date Type Department Care Team (Late st Contact Info) Description 11/05/2020 Transcribed Document [facility] Family Medicine [address] [place] [address] ProviderRoselyn MD [address] [place] [id number] Social History Tobacco Use Types Packs/Day Years [...] was drained by Dr. Main Paez in [facility], was purulent, but it has been [...] the infectious area, we decided to use louei and sutures on the top part, but we put a Randy drain in for drainage and sutured it to the skin with 2-0 Vicryl and closed the skin with louie. The patient was taken to postop recovery room in satisfactory condition and she was given and clindamycin as preop clinical antibiotics. ESTIMATED BLOOD LOSS: Approximately 15 to 20 mL. /[id number] Zane Redman MD LSB/AQ / LSB / MODL /[id number] documented in this encounter Plan of Treatment Not on file documented as of this encounter Visit Diagnoses Not on filedocumented in this encounter Care Teams Infrastructure Software Engineer Relationship Specialty Start Date End Date Mari Carrero, MARTIR [address] [address] PCP - General Nurse Practitioner 08/10/23 documented as of this encounter
--- OUTSIDE RECORDS SUMMARY | 2025-01-17 20:23 | XMS_ITS | Encounter Summary ---
Author Organization [employer] ([place], [place], [place], [place], [place]) Address [address] [place] [address] Care Team Providers Care Interstate Bus Dispatcher Name Role Phone Mari Carrero APRN Primary Care Provider Encounter Details Date Type Department Care Team (Late st Contact Info) Description 11/04/2020 Transcribed Document [facility] Family Medicine [address] [place] [address] ProviderRoselyn MD [address] [place] [phone] Social History Tobacco Use Types Packs/Day Years [...] to me by Dr. Main Paez in [place], [place], with a problem of an inflammatory [...] SOCIAL HISTORY: The patient is a one ekbj-mxa-qvw cigarette smoker. PHYSICAL EXAMINATION: GENERAL: Shows a [...] extension. ASSESSMENT: As above. PLAN: As above. /[id number] MD AMEE Del Angel/PER / LSBianca / MODL Electronically signed by Marion [facility] Conversion Manager Of Health Cerner at 06/27/2022 8:21 PM CDT documented in this encounter Plan of Treatment Not on file documented as of this encounter Visit Diagnoses Not on filedocumented in this encounter Care Teams Interstate Bus Dispatcher Relationship Specialty Start Date End Date Mari Carrero APRN [address] [address] PCP - General Nurse Practitioner 08/10/23 documented as of this encounter
--- OUTSIDE RECORDS SUMMARY | 2025-01-17 20:23 | XMS_ITS | Encounter Summary ---
Author Organization [facility] Address [address] [place] [address] Care Team Providers Care Professor Of Biological Sciences Name Role Phone Reynold Khan MD Primary Care Provider [phone]- [phone] Encounter Details Date Type Department Care Team (Late st Contact Info) Description 07/19/2022 Lab Requisition [facility] [address] [place] [address] Maxwell Neal MD [address] [place] [address] Encounter for general adult medical [...] Date of Assessment Author Initial/First Attempt Date 004[address] 07/19/2022 2:0 0 PM EDT Maliha Bond [...] 3 Months) Yes 07/19/2022 2:00 PM EDT Mailha Bond RN Total Number of Actual Attem [...] [place] Co de Phone Number [facility] [address] [place] [address] documented in this encounter Visit Diagnoses Diagnosis Encounter for general adult medical examination without abnormal findings documented in this encounter Care Teams Professor Of Biological Sciences Relationship Specialty Start Date End Date Reynold Khan MD [address] [place] [address] PCP - General 07/25/20 documented as of this encounter
--- OUTSIDE RECORDS SUMMARY | 2025-01-17 20:23 | XMS_ITS | Encounter Summary ---
Author Organization [employer] ([place], [place], [place], [place], [place]) Address [address] [place] [address] Care Team Providers Care Saddle Cutter Name Role Phone Mari Carrero APRN Primary Care Provider [phone] Encounter Details Date Type Department Care Team (Late st Contact Info) Description 11/05/2020 Transcribed Document [facility] Family Medicine [facility] [place] [address] ProviderRoselyn MD [address] [place] [address] Social History Tobacco Use Types Packs/Day [...] these instructions at home: Medicines ??? Take qvrb-ymx-rbgrnip and prescription medicines only as told by [...] and water are not available, use hand powder coat painter. ??? Change your dressing and packing as [...] provider. Document Revised: 01/29/2019 Document Reviewed: 01/29/2019 Elsevier Patient Education ? 2020 Elsevier Inc. Pharmacology [...] activities are safe for you. ??? Take pxty-ncn-xshqejr and prescription medicines only as told by [...] provider. Document Revised: 03/03/2018 Document Reviewed: 10/14/2017 Infiniu Patient Education ? 2020 [employer] Inc. Procedures Outpatient Surgery, Adult, Care After [...] and water are not available, use hand powder coat painter. ? Change your dressing as told by [...] or a bad smell. Medicines ??? Take yegu-mqd-fyxbprb and prescription medicines only as told by [...] provider. Document Revised: 05/29/2018 Document Reviewed: 06/20/2016 [employer] Patient Education ? 2020 [employer] documented in this encounter Plan of Treatment Not on file documented as of this encounter Visit Diagnoses Not on filedocumented in this encounter Care Teams Saddle Cutter Relationship Specialty Start Date End Date Mari Carrero APRN [address] [address] PCP - General Nurse Practitioner 08/10/23 documented as of this encounter
== END 2025-01-16 23:59 | disposition home or self-care (01) ==
LOC: LAB.DROPOF 01-17 20:21
PROVIDERS: PCP Nurse Practitioner Family; Visit Provider Nurse Practitioner Family
DX: N39.0 Urinary tract infection, site not specified (principal)
CPT/HCPCS: 87086

== ENCOUNTER 2025-02-28 21:13 | Emergency (ER) | payer MEDICARE, SELFPAY ==
[2025-02-28] VITALS (7 sets, daily range): BP systolic 134–165; BP diastolic 65–78; PULSE 66–89; RESP 16; TEMP 36.6; O2SAT 95–100; BMI 31.1
--- OUTSIDE RECORDS SUMMARY | 2025-02-28 21:54 | XMS_ITS | Clinical Summary ---
Author Organization [facility] Address [address] [place] [address] Care Team Providers Care Environmental Engineer Name Role Phone Reynold Khan MD Primary Care Provider [phone] Allergies Active Allergy Reactions Criticality Noted Date [...] day. Active cholecalciferol (Vitamin D3) 1.25 MG (87060 UT) tablet Take 50,000 Units by mouth [...] No Healthcare Surrogate: Healthcare POA Care Teams Environmental Engineer Relationship Specialty Start Date End Date Reynold Khan MD [address] [place] [address] PCP - General 07/25/20
--- OUTSIDE RECORDS SUMMARY | 2025-02-28 21:54 | XMS_ITS | Referral Summary ---
Author Organization [employer] ([place], [place], [place], [place], [place]) Address [address] [place] [address] Care Team Providers Care Solar Installation Manager Name Role Phone Mari Carrero APRN [...] Due Influenza High Dose Preservative Free IM ([id number] ) 03/31/2020 Influenza Quad-qiv Non Pf 01/23/2018 [...] Date Silviano rded Speak language other than Guamanian at home Not on file 05/25/2023 Want [...] Plan of Treatment Not on file Insurance [facility] MEDICARE ADVANTAGE Care Teams Solar Installation Manager Relationship Specialty Start Date End Date Mari Carrero, RESIDENTIAL COUNSELOR [address] [place] [address] PCP - General Nurse Practitioner 08/10/23
--- OUTSIDE RECORDS SUMMARY | 2025-02-28 21:55 | XMS_ITS | Encounter Summary ---
Author Organization [employer] ([place], [place], [place], [place], [place]) Address [address] [place] [address] Care Team Providers Care Driver Trainee Name Role Phone Mari Carrero APRN Primary Care Provider Encounter Details Date Type Department Care Team (Late st Contact Info) Description 11/05/2020 Transcribed Document [facility] [place] [address] ProviderRoselyn MD [address] [place] [address] Social History Tobacco Use Types Packs/Day [...] these instructions at home: Medicines ??? Take ludd-sta-fzjzqiy and prescription medicines only as told by [...] and water are not available, use hand warehousing technician. ??? Change your dressing and packing [...] activities are safe for you. ??? Take kuqj-sgy-szclypo and prescription medicines only as told by [...] provider. Document Revised: 03/03/2018 Document Reviewed: 10/14/2017 [employer] Patient Education ? 2020 [employer] Procedures Outpatient Surgery, Adult, Care After [...] and water are not available, use hand warehousing technician. ? Change your dressing as told [...] or a bad smell. Medicines ??? Take ivcs-wrp-wzjnsvs and prescription medicines only as told by [...] provider. Document Revised: 05/29/2018 Document Reviewed: 06/20/2016 [employer] Patient Education ? 2020 [employer] Electronically signed by Yahir Schultz Conversion Sr. Manager Corporate Communications Karen at 06/27/2022 8:30 PM CDT documented in this encounter Plan of Treatment Not on file documented as of this encounter Visit Diagnoses Not on filedocumented in this encounter Care Teams Driver Trainee Relationship Specialty Start Date End Date Mari Carrero APRN [address] [address] PCP - General Nurse Practitioner 08/10/23 documented as of this encounter
--- OUTSIDE RECORDS SUMMARY | 2025-02-28 21:55 | XMS_ITS | Encounter Summary ---
Author Organization [employer] ([place], [place], [place], [place], [place]) Address [address] [place] [address] Care Team Providers Care Tile Fitter Name Role Phone Mari Carrero APRN Primary Care Provider Encounter Details Date Type Department Care Team (Late st Contact Info) Description 11/05/2020 Transcribed Document [facility] [place] [facility] [place] [address] ProviderRoselyn MD [address] [place] [address] Social History Tobacco Use Types Packs/Day [...] DOMINGUEZ /Sex: 1955 Female Med Rec #: [id number] Physician: DONY CERVANTES MD-OBG Financial #: [id number] Pt. Type: O Room/Bed: [facility] Admit/Disch: 11/05/20 09:46:00 - [place] [facility] [place] Case Attendance Entry 1 Entry 2 Entry 3 Case Attendee DONY CERVANTES MD-OBG ANNI GOODRICH APRN, Brock, Deanna EMPLOYEE RELATIONS DIRECTOR-ANS Role Performed Surgeon/Proceduralist, EMPLOYEE RELATIONS DIRECTOR/Nurse Assembly Inspector Scrub, First First Time In 11/05/20 12:28:00 [...] Christianson RN-PATIENT CARE BEDSIDE NON-EXEMPT Role Performed Travertine Installer, First Time In 11/05/20 12:28:00 Time Out 11/05/20 13:56:00 Procedure Mass Excision Genitalia Other Attendee Superficial Wound Closed By: Last Modified By: Brittani Christianson RN-PATIENT CARE BEDSIDE NON-EXEMPT 11/05/20 13:56:02 [facility] IntraOp Case Attendance Audit 11/05/20 13:56:02 Billboard Poster Helper: [id number] Modifier: [id number] <+> Time Out 1 <*> Procedure Mass Excision Genitalia 2 <+> Time Out 2 <*> Procedure Mass Excision Genitalia 3 <+> Time Out 3 <*> Procedure Mass Excision Genitalia 4 <+> Time Out 4 <*> Procedure Mass Excision Genitalia 11/05/20 13:10:37 Billboard Poster Helper: [id number] Modifier: [id number] 1 <+> Time In 1 <*> Procedure Mass Excision Genitalia 2 <+> Time In 2 <*> Procedure Mass Excision Genitalia 3 <+> Time In 3 <*> Procedure Mass Excision Genitalia 4 <+> Time In 4 <*> Procedure Mass Excision Genitalia 11/05/20 12:53:31 Billboard Poster Helper: [id number] Modifier: [id number] <+> 2 Case Attendee <+> 2 Role [...] [facility] IntraOp Case Times Audit 11/05/20 13:55:49 Billboard Poster Helper: [id number] Modifier: [id number] <+> 1 Out Room Time <+> 1 [...] Patient Transport ANNI GOODRICH APRN, Accompanied by EMPLOYEE RELATIONS DIRECTOR-ANS, Brittani Christianson RN-PATIENT CARE BEDSIDE NON-EXEMPT Last Modified By: Brittani Christianson RN-PATIENT CARE BEDSIDE NON-EXEMPT 11/05/20 13:04:23 [facility] IntraOp Drains and Tubes Entry 1 Device Type [place] Size 1/4 Drain/Tube Activity Inserted Method of [...] NON-EXEMPT 11/05/20 13:06:09 [facility] IntraOp General Case Calculating Machine Operator 1 Case Information OR OR [...] 0.5% w/ epinephrine 1:200,000 30ml vial - [id number] Route of TO FIELD Administration Dose Dose [...] Intra Op Sign Out Audit 11/05/20 13:55:56 Billboard Poster Helper: [id number] Modifier: [id number] <+> 1 RN Sign Out Signature Date/Time [...] [facility] IntraOp Surgical Procedures Audit 11/05/20 13:56:01 Billboard Poster Helper: [id number] Modifier: [id number] <+> 1 Stop 11/05/20 13:09:58 Billboard Poster Helper: [id number] Modifier: [id number] <+> 1 Start [facility] IntraOp Temp Regulation Devices Entry 1 Temp Regulation Temperature Forced Air Warming Regulation Device device Temperature Upper body Regulation Site Temperature Device HIGH Setting Temperature ANNI GOODRICH APRN, Regulation Device EMPLOYEE RELATIONS DIRECTOR-ANS Applied by Last Modified By: Brittani Christianson [...] NON-EXEMPT 11/05/20 13:56 Electronically signed by Marion [facility] Conversion Senior Manufacturing Engineer Cerner at 06/27/2022 8:33 PM CDT documented in this encounter Plan of Treatment Not on file documented as of this encounter Visit Diagnoses Not on filedocumented in this encounter Care Teams Tile Fitter Relationship Specialty Start Date End Date Mari Carrero, TANK ERECTOR [address] [place] [address] PCP - General Nurse Practitioner 08/10/23 documented as of this encounter
--- OUTSIDE RECORDS SUMMARY | 2025-02-28 21:55 | XMS_ITS | Encounter Summary ---
Author Organization [employer] ([place], [place], [place], [place], [place]) Address [address] [place] [address] Care Team Providers Care Business Services Analyst Name Role Phone Mari Carrero APRN Primary Care Provider Encounter Details Date Type Department Care Team (Late st Contact Info) Description 11/05/2020 Transcribed Document [facility] [place] [address] [place] [address] ProviderRoselyn MD [address] [place] [address] [id number] Social History Tobacco Use Types Packs/Day Years [...] was drained by Dr. Main Paez in [facility], was purulent, but it has been [...] BLOOD LOSS: Approximately 15 to 20 mL. /[id number] Zane Redman MD LSB/AQ / LSB / MODL /[id number] documented in this encounter Plan of Treatment Not on file documented as of this encounter Visit Diagnoses Not on filedocumented in this encounter Care Teams Business Services Analyst Relationship Specialty Start Date End Date Mari Carrero, MARTIR [address] [address] PCP - General Nurse Practitioner 08/10/23 documented as of this encounter
--- OUTSIDE RECORDS SUMMARY | 2025-02-28 21:55 | XMS_ITS | Encounter Summary ---
Author Organization [facility] Address [address] [place] [address] Care Team Providers Care Earth Sciences Professor Name Role Phone Reynold Khan MD Primary Care Provider [phone] Encounter Details Date Type Department Care Team (Late st Contact Info) Description 07/19/2022 Lab Requisition [facility] [address] [place] [address] Maxwell Neal MD [address] [place] [address] Encounter for general adult medical examination without abnormal findings Social History Tobacco Use Types Packs/Day Years Used Date Smoking Tobacco: Never Assessed Comments Unknown Sex and Gender Information Value Date Recorded Sex Assigned at Not on file Legal Sex Female 8:53 PM EDT Gender Identity Not on file Sexual Orientation Not on file documented as of this encounter Functional Status * Question Answer Date of Assessment Author Precautions Environmental survei llance;72 Hour Hold;Suicide 07/19/2022 4:00 AM EDT Kaye Klein RN * Actual/Potential Lethality (Most Lethal Attempt) Question [...] Date of Assessment Author Initial/First Attempt Date [id number] 07/19/2022 2:0 0 PM EDT Maliha Bond [...] Self-Interrupted Attempts (Lifetime) 1 07/19/2022 2:00 PM JEANNET Maliha Bond RN Actual Attempt (Past 3 Months) Yes 07/19/2022 2:00 PM EDT Maliha Bond RN Total Number of Actual Attem pts (Past 3 Months) 1 07/19/2022 2:00 PM EDT Maliha Bond RN Aborted or Self-Interrupted Attempt (Past 3 Months) Yes 07/19/2022 2:00 PM EDT Morgan Bond RN Total Number of Aborted or Self-Interrupted Attempts (Past 3 Months) 1 07/19/2022 2:00 PM JEANNET Maliha Bond RN documented as of this encounter Mental Status * Question Answer Entry Date Author Precautions Environmental survei llance;72 Hour Hold;Suicide 07/19/2022 4:00 AM EDT Kaye Klein RN documented in this encounter Plan of Treatment [...] at day 2 07/21/2022 11:11 AM EDT [facility] Swab (Nares and Maria R Rectal) 07/19/2022 11:27 AM EDT 07/19/2022 5:50 PM EDT us Maxwell De Jesus MD LAB MICROBIOLOGY - GENERAL ORDERABLES Final Result [facility] [address] [place] [address] documented in this encounter Visit Diagnoses Diagnosis Encounter for general adult medical examination without abnormal findings documented in this encounter Care Teams Earth Sciences Professor Relationship Specialty Start Date End Date Reynold Khan MD [address] [place], [place] [address] PCP - General 07/25/20 documented as of this encounter
--- OUTSIDE RECORDS SUMMARY | 2025-02-28 21:55 | XMS_ITS | Encounter Summary ---
Author Organization [employer] ([place], [place], [place], [place], [place]) Address [address] [place] [address] Care Team Providers Care Contractor General Engineering Name Role Phone Mari Carrero APRN Primary Care Provider Encounter Details Date Type Department Care Team (Late st Contact Info) Description 11/05/2020 Transcribed Document [facility] [place] [facility] [place] [address] ProviderRoselyn MD [address] [place] [address] Social History Tobacco Use Types Packs/Day [...] BUSH /Sex: 1955 Female Med Rec #: [id number] Physician: DONY CERVANTES MD-OBG Financial #: [id number] Pt. Type: O Room/Bed: [facility] Admit/Disch: 11/05/20 09:46:00 - Institution: [facility] [place] PreOp Case Times Entry 1 In Preop 11/05/20 09:55:00 Ready for Holding n/a Room Patient Ready for 11/05/20 10:30:00 Surgery Patient Out of Preop 11/05/20 12:20:00 Patient Out of n/a Holding Room Last Modified By: Katelyn Ga RN 11/05/20 17:26:05 [facility] PreOp Case Times Audit 11/05/20 17:26:05 Irrigationist Designer: [email or web address] Modifier: [id number] <+> 1 Patient Out of Preop Finalized By: Katelyn Ga, RN Document Signatures Signed By: Katelyn Ga RN 11/05/20 17:26 Electronically signed by Marion [facility] Conversion Wrestling Coach Cerner at 06/27/2022 8:20 PM CDT documented in this encounter Plan of Treatment Not on file documented as of this encounter Visit Diagnoses Not on filedocumented in this encounter Care Teams Contractor General Engineering Relationship Specialty Start Date End Date Mari Carrero, MARTIR [address] [place] [phone] PCP - General Nurse Practitioner 08/10/23 documented as of this encounter
--- OUTSIDE RECORDS SUMMARY | 2025-02-28 21:55 | XMS_ITS | Encounter Summary ---
Author Organization [employer] ([place], [place], [place], [place], [place]) Address [address] [place] [address] Care Team Providers Care Highway Engineering Technician Name Role Phone Mari Carrero APRN Primary Care Provider Encounter Details Date Type Department Care Team (Late st Contact Info) Description 11/04/2020 Transcribed Document [facility] [place] [address] [place] [address] ProviderRoselyn MD [address] [place] [phone] Social History Tobacco Use Types Packs/Day Years [...] to me by Dr. Main Paez in [place], [place], with a problem of an inflammatory [...] SOCIAL HISTORY: The patient is a one xhfs-zth-imm cigarette smoker. PHYSICAL EXAMINATION: GENERAL: Shows a [...] extension. ASSESSMENT: As above. PLAN: As above. /[id number] MD AMEE Del Angel/PER / LSBianca / MODL Electronically signed by Marion [facility] Conversion Control Systems Developer Cerner at 06/27/2022 8:21 PM CDT documented in this encounter Plan of Treatment Not on file documented as of this encounter Visit Diagnoses Not on filedocumented in this encounter Care Teams Highway Engineering Technician Relationship Specialty Start Date End Date Mari Carrero APRN [address] [address] PCP - General Nurse Practitioner 08/10/23 documented as of this encounter
--- OUTSIDE RECORDS SUMMARY | 2025-02-28 21:55 | XMS_ITS | Clinical Summary ---
Author Organization [employer] ([place], [place], [place], [place], [place]) Address [address] [place] [address] Care Team Providers Care Relationship Manager Name Role Phone Mari Carrero APRN [...] Due Influenza High Dose Preservative Free IM ([id number] ) 03/31/2020 Influenza Quad-qiv Non Pf 01/23/2018 [...] Date Silviano rded Speak language other than Lithuanian at home Not on file 05/25/2023 Want [...] Colorectal Cancer Screening 08/09/2028 Insurance [facility] MEDICARE ADVANTAGE Care Teams Relationship Manager Relationship Specialty Start Date End Date Mari Carrero, EXHAUST EMISSIONS INSPECTOR [address] [address] PCP - General Nurse Practitioner 08/10/23
--- OUTSIDE RECORDS SUMMARY | 2025-02-28 21:55 | XMS_ITS | Encounter Summary ---
Author Organization [employer] ([place], [place], [place], [place], [place]) Address [address] [place] [address] Care Team Providers Care Ballet Dancer Name Role Phone Mari Carrero APRN Primary Care Provider [phone] Encounter Details Date Type Department Care Team (Late st Contact Info) Description 11/05/2020 Transcribed Document [facility] [place] [facility] [place] [address] ProviderRoselyn MD [address] [place] [address] Social History Tobacco Use Types Packs/Day [...] Bocanegra MD - 11/05/2020 3:09 PM CDT [place] [phone] ANN MARIE BUSH :1955 Visit Time:11/05/2020 What [...] CERVANTES When 11/12/2020 01:00 PM EDT Where: [address] [place] [address] [address] [place] [address]- Business (1) Medications What How Much When Instructions Next Dose acetaminophen-hydrocodone ([place] 10 mg-325 mg oral tablet) 1 Tablet(s) [...] (fluticasone 50 mcg/ inh nasal spray) 2 Beyer(s) Nasal Every Day furosemide (furosemide 40 mg [...] these instructions at home: Medicines ??? Take ahkg-gmy-rfdgbzo and prescription medicines only as told by [...] and water are not available, use hand linoleum tile layer. ??? Change your dressing and packing as [...] provider. Document Revised: 01/29/2019 Document Reviewed: 01/29/2019 [employer] Patient Education ?? 2020 [employer] Outpatient Surgery, Adult, Care After These [...] and water are not available, use hand linoleum tile layer. ? Change your dressing as told by [...] or a bad smell. Medicines ??? Take fweb-isz-seqzoun and prescription medicines only as told by [...] provider. Document Revised: 05/29/2018 Document Reviewed: 06/20/2016 [employer] Patient Education ?? 2020 [employer] General Anesthesia, Adult, Care After This [...] activities are safe for you. ??? Take mtsg-xuf-vroydlu and prescription medicines only as told by [...] provider. Document Revised: 03/03/2018 Document Reviewed: 10/14/2017 [employer] Patient Education ?? 2020 [employer]. Emergency Awareness and Preventative Care STROKE is [...] Assistance with quitting is available by contacting 1-239-CTEL-NOW. This is a free resource providing counseling, [...] range between ( 1.0 and 7.0 ) Fannin #: 0.23 K/uL -- Normal range between ( 0.24 and 0.82 ) Eos #: 0.03 K/uL -- Normal range between ( 0.04 and 0.54 ) Fannin %: 3.2 % -- Normal range between [...] was given the opportunity to ask questions. Patient/Drop Forge Operator Name: Patient/Drop Forge Operator Signature: Relationship to Patient: Clinician/Hospital Drop Forge Operator Signature: Date: documented in this encounter Plan of Treatment Not on file documented as of this encounter Visit Diagnoses Not on filedocumented in this encounter Care Teams Ballet Dancer Relationship Specialty Start Date End Date Mari Carrero, ICT SALES REPRESENTATIVE [address] [place] [address] PCP - General Nurse Practitioner 08/10/23 documented as of this encounter
--- OUTSIDE RECORDS SUMMARY | 2025-02-28 21:55 | XMS_ITS | Encounter Summary ---
Author Organization [employer] ([place], [place], [place], [place], [place]) Address [address] [place] [address] Care Team Providers Care Foil Cutter Name Role Phone Mari Carrero APRN Primary Care Provider Encounter Details Date Type Department Care Team (Late st Contact Info) Description 11/05/2020 Transcribed Document [facility] [place] [facility] [place] [address] ProviderRoselyn MD [address] [place] [address] Social History Tobacco Use Types Packs/Day [...] BUSHPasha Combs/Sex: 1955 Female Med Rec #: [id number] Physician: DONY CERVANTES MD-OBG Financial #: [id number] Pt. Type: O Room/Bed: [facility] Admit/Disch: 11/05/20 09:46:00 - Institution: [facility] PostOp Case Times Entry 1 In PACU II 11/05/20 15:00:00 Ready for PACU II 11/05/20 15:30:00 Discharge Discharge from PACU 11/05/20 15:45:00 II Last Modified By: KATHLEEN BRAMBILA, DEAN 11/05/20 16:01:57 [facility] PostOp Case Times Audit 11/05/20 16:01:57 Glass Unloading Equipment Tender: [email or web address] Modifier: [email or web address] <+> 1 Discharge from PACU II 11/05/20 15:47:34 Glass Unloading Equipment Tender: [email or web address] Modifier: [email or web address] <+> 1 Ready for PACU II Discharge Finalized By: KATHLEEN BRAMBILA, RN Document Signatures Signed By: KATHLEEN BRAMBILA, DEAN 11/05/20 16:02 documented in this encounter Plan of Treatment Not on file documented as of this encounter Visit Diagnoses Not on filedocumented in this encounter Care Teams Foil Cutter Relationship Specialty Start Date End Date Mari Carrero, POSTAL CLERK [address] [place] [phone] PCP - General Nurse Practitioner 08/10/23 documented as of this encounter
--- OUTSIDE RECORDS SUMMARY | 2025-02-28 21:55 | XMS_ITS | Encounter Summary ---
Author Organization [employer] ([place], [place], [place], [place], [place]) Address [address] [place] [address] Care Team Providers Care Engineer Fishing Vessel Name Role Phone Mari Carrero APRN Primary Care Provider Encounter Details Date Type Department Care Team (Late st Contact Info) Description 11/05/2020 Transcribed Document [facility] [place] [address] ProviderRoselyn MD [address] [place] [address] Social History Tobacco Use Types Packs/Day [...] MARIEPasha Combs/Sex: 1955 Female Med Rec #: [id number] Physician: DONY CERVANTES MD-OBG Financial #: [id number] Pt. Type: O Room/Bed: [facility] Admit/Disch: 11/05/20 09:46:00 - Institution[place] [facility] [place] PACU Case Times Entry 1 In PACU I 11/05/20 13:56:00 Ready for PACU 11/05/20 14:55:00 Discharge Discharge from PACU 11/05/20 14:55:00 I Last Modified By: BLANCA KEYS RN 11/05/20 15:08:20 Finalized By: BLANCA KEYS RN Document Signatures Signed By: BLANCA KEYS RN 11/05/20 15:08 Electronically signed by Marion [facility] Conversion Longwall Shearer Operator Cerner at 06/27/2022 8:34 PM CDT documented in this encounter Plan of Treatment Not on file documented as of this encounter Visit Diagnoses Not on filedocumented in this encounter Care Teams Engineer Fishing Vessel Relationship Specialty Start Date End Date Mari Carrero, SENIOR SOFTWARE ENGINEER ANALYTICS [address] [place] [address] PCP - General Nurse Practitioner 08/10/23 documented as of this encounter
--- OUTSIDE RECORDS SUMMARY | 2025-02-28 21:55 | XMS_ITS | Encounter Summary ---
Author Organization [employer] ([place], [place], [place], [place], [place]) Address [address] [place] [address] Care Team Providers Care Computer Network Specialist Name Role Phone Mari Carrero APRN Primary Care Provider [phone] Encounter Details Date Type Department Care Team (Late st Contact Info) Description 11/05/2020 Transcribed Document [facility] [place] [facility] [place] [address] ProviderRoselyn MD [address] [place] [address] Social History Tobacco Use Types Packs/Day [...] Source : Stated Height Entry Format : [place] Height, Feet : 5 ft(Converted to: 152 cm, 60 Inch) Height, Inches : 2 Inch(Converted to: 0 ft 2 Inch, 5.08 cm) Clinical Height : 157.48 cm Weight Source : Standing scale Weight Entry Format : [place] Clinical Dosing Weight : 85.91 kg Weight, Pounds : 189 lb Body Surface Area (BSA) : 1.87 m2 Body Mass Index : 34.6 kg/m2 (HI) [place] Body Weight : 50 kg Alisha Munoz [...] (Last Updated: 10/11/2014 11:14:46 EDT by Rima Gotit RN) Infectious Disease History Has the patient [...] History of Anesthesia Reaction : None Alisha Mnuoz Rn - 11/05/2020 10:40 EDT Advance Directive [...] Alisha Munoz Rn - 11/05/2020 10:40 EDT Jean Suicide Severity Rating Scale (C-SSRS) CSSRS Past [...] Obtained From : Patient Primary Language : Palauan Communication Barrier : None Director Of Community Services Needed : No Alisha Munoz Rn - [...] on filedocumented in this encounter Care Teams Computer Network Specialist Relationship Specialty Start Date End Date Mari Carrero, PAPER GOODS MACHINE SET UP OPERATOR [address] [place] [phone] PCP - General Nurse Practitioner 08/10/23 documented as of this encounter
--- OUTSIDE RECORDS SUMMARY | 2025-02-28 21:55 | XMS_ITS | Patient Health Record ---
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 [...] 90 days Active Vitamin D3 1.25 MG (00005 UT) 1 capsule Orally once per week; [...] Problem Type II diabetes mellitus without complication (638508883) Type 2 diabetes mellitus without complications (E11.9) Active confirmed Problem Gastroesophageal reflux disease (382185074) GERD (gastroesophageal reflux disease) (K21.9) Active confirmed Problem Essential hypertension (23748438) Essential (primary) hypertension (I10) Active confirmed Problem Insomnia (127951765) Insomnia (G47.00) Active confirmed Problem Overactive bladder (795476493) Overactive bladder (N32.81) Active confirmed Problem Vitamin D deficiency (97904773) Vitamin D deficiency (E55.9) Active confirmed Problem Irritable bowel syndrome (39094220) IBS (irritable bowel syndrome) (K58.9) Active confirmed Problem Osteopenia (804090222) Osteopenia (M85.80) Active confirmed Problem Seasonal allergy (903316225) Seasonal allergies (J30.2) Active confirmed Problem Disorder of lumbar disc (737131601) Lumbar disc disease (M51.9) Active confirmed Problem Mixed anxiety and depressive disorder (436922995) Depression with anxiety (F41.8) Active confirmed Problem Fatty liver (513920382) Fatty infiltration of liver (K76.0) Active confirmed Problem Memory loss (11859690) Memory loss (R41.3) Active confirmed Problem Dysphagia (39406485) Dysphagia (R13.10) Active confirmed Problem Mononeuropathy associated with type II diabetes mellitus (592535451) Type 2 diabetes mellitus with diabetic mononeuropathy (E11.41) Active confirmed Problem Opioid dependence (60355223) Opioid dependence, uncomplicated (F11.20) Active confirmed Problem Chronic pain syndrome (613562722) Chronic pain syndrome (G89.4) Active confirmed Problem Osteoarthritis of knee (685086815) Unilateral primary osteoarthritis, left knee (M17.12) Active confirmed Problem Urge incontinence of urine (36777083) Urge incontinence (N39.41) Active confirmed Problem Acquired hypothyroidism (113555606) Acquired hypothyroidism (E03.9) Active confirmed Problem Gastroesophageal reflux disease with esophagitis (375104268) Gastroesophageal reflux disease with esophagitis (K21.0) Active confirmed Problem COPD - Chronic obstructive pulmonary disease (90147643) Chronic obstructive pulmonary disease, unspecified COPD type (J44.9) Active confirmed Problem Lumbosacral spondylosis without myelopathy (76167850) Degenerative joint disease (DJD) of lumbar spine (M47.816) Active confirmed Problem Mechanical low back pain (368058603) Mechanical low back pain (M54.5) Active confirmed Problem Body mass index 30.00 to 34.99 (430254050478070) BMI 34.0-34.9,adult (Z68.34) Active confirmed Problem Excessive daytime sleepiness (5065458418) Excessive daytime sleepiness (G47.19) Active confirmed Problem Obese class II (353416098289743) BMI 37.0-37.9, adult (Z68.37) Active confirmed Problem Dyslipidemia (931650977) Dyslipidemia (E78.5) Active confirmed Problem Nocturnal myoclonus (G47.69) Active confirmed Problem Urinary incontinence (063112017) Urinary incontinence, unspecified type (R32) Active confirmed Problem Tobacco use (061898350) Tobacco use disorder (F17.200) Active confirmed Problem Mixed incontinence (332832021) Mixed stress and urge urinary incontinence (N39.46) Active confirmed Problem Paroxysmal supraventricular tachycardia (disorder) (10732705) Paroxysmal SVT (supraventricular tachycardia) (I47.1) Active confirmed Problem Type II diabetes mellitus without complication (120220772) Type 2 diabetes mellitus without complication, 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) Active confirmed Encounters Encounter Location Date Provider Diagnosis [facility] [address] [facility] [address] [place] [id number] 12/06/2024 Joe Khan Plan Of Treatment No Information Insurance Providers Payer Name Payer Address Payer Phone Subscriber Number Group Number Insured Name Patient Relationship to Insured Coverage Start Date Coverage End Date [employer] MED[employer]ARE [address] [address] [place], [place] [id number] AlbertoMaricel Self - patient is the insured Medications Administered Medication Instructions Date of Administration Dosage Notes B-12 10/21/2009 1 mL B-12 12/16/2009 1 mL B-12 01/06/2010 1 mL B-12 03/19/2010 1 mL B-12 07/02/2011 1 mL Dexamethasone 12/02/2022 1 mL Medical (General) History Medical History History ICD Code chronic asthma COPD DM HTN depression - seen at [facility] anxiety hyperlipidemia Chronic back pain Tobacco addiction Hypothyroidism GERD Overactive bladder Intermittent SVT - Dr. Potter Drug overdose - 07/2022 Surgical History Surgery Date(Month/Year) gallbladder left knee arthroscopy 2002 x2 Heart Cath at [facility] [place], [place] J une Biopsy of right breast 07/29/08 biopsy and scope of stomach- 2 polyps re moved-Dr Calles 11/24 endometrial polypectomy - Dr. Corral 201 4 C-scope/ Dr. Cortez/ normal 2010 Hospitalization History Reason Date(Month/Year) depression [facility]-anxiety 11/20 [facility] [place], stomach pain 10/16/12 [facility] 04/27 [facility]-chest pain/Bronchitis 06/29/16 [facility]-pt fell in front of clinic pharmacy 09/09/16 [facility]-pneumonia 01/30/19 [facility]-pneumomia 02/14/19 [facility]I 09/14/2019 -intentional drug overdose 07/2022
--- NOTE | 2025-02-28 22:07 | CT_ITS ---
PROCEDURE INFORMATION: Exam: CTA Chest With Contrast Exam date and time: 02/28/2025 10:36 PM Age: 69 years old Clinical indication: Cough and shortness of breath; Additional info: Cough, shortness of breath TECHNIQUE: Imaging protocol: Computed tomographic angiography of the chest with contrast. Exam focused on the arteries. 3D rendering (Not supervised by radiologist): MIP and/or 3D reconstructed images were created by the technologist. Radiation optimization: All CT scans at this facility use at least one of these dose optimization techniques: automated exposure control; mA and/or kV adjustment per patient size (includes targeted exams where dose is matched to clinical indication); or iterative reconstruction. Contrast material: ISOVUE; Contrast volume: 70 ml; Contrast route: INTRAVENOUS (IV); COMPARISON: CT ANGIO CHEST PE PROTOCOL 06/15/2023 4:44 PM FINDINGS: Limitations: Motion artifact degrades image quality and limits the sensitivity of this examination. Pulmonary arteries: Normal. No pulmonary emboli. Aorta: Motion limits assessment of the ascending aorta. The aorta is otherwise unremarkable. Mild calcification of the aorta. Lungs: Thick-walled cavitary lesion in the left pulmonary apex measuring 3 cm transverse by 2.7 cm AP x 2.2 cm craniocaudal. Pleural spaces: Unremarkable. No pneumothorax. No pleural effusion. Heart: Unremarkable. No cardiomegaly. No pericardial effusion. Coronary arteries: Mild calcification of the coronary arteries. Lymph nodes: Unremarkable. No enlarged lymph nodes. Bones/joints: Unremarkable. No acute fracture. Soft tissues: Unremarkable. IMPRESSION: Thick-walled cavitary lesion in the left pulmonary apex measuring 3 cm transverse by 2.7 cm AP x 2.2 cm craniocaudal. This corresponds in location to a 1.5 cm cavitary nodule visualized on the examination of 06/15/2023. Concerning for neoplasm. Differential diagnosis includes mycobacterial and fungal infection. Correlate clinically.
--- NOTE | 2025-02-28 22:07 | CT_ITS ---
PROCEDURE INFORMATION: Exam: CT Abdomen And Pelvis With Contrast Exam date and time: 02/28/2025 10:36 PM Age: 69 years old Clinical indication: Abdominal pain TECHNIQUE: Imaging protocol: Computed tomography of the abdomen and pelvis with contrast. 3D rendering (Not supervised by radiologist): MIP and/or 3D reconstructed images were created by the technologist. Radiation optimization: All CT scans at this facility use at least one of these dose optimization techniques: automated exposure control; mA and/or kV adjustment per patient size (includes targeted exams where dose is matched to clinical indication); or iterative reconstruction. Contrast material: ISOVUE; Contrast volume: 70 ml; Contrast route: IV; COMPARISON: CT ANGIO ABDOMEN PELVIS 07/29/2024 2:07 AM FINDINGS: Limitations: Motion artifact degrades image quality and limits the sensitivity of this examination. Liver: Normal. No mass. Gallbladder and biliary ducts: Cholecystectomy. Pancreas: Normal. No ductal dilation. Spleen: Normal. No splenomegaly. Adrenal glands: Normal. No mass. Kidneys and ureters: Normal. No hydronephrosis. Stomach and bowel: Unremarkable. No obstruction. No mucosal thickening. Appendix: No evidence of appendicitis. Intraperitoneal space: Unremarkable. No free air. No significant fluid collection. Vasculature: Moderate calcification of the aorta and iliac arteries. Lymph nodes: Unremarkable. No enlarged lymph nodes. Urinary bladder: Unremarkable as visualized. Reproductive: Unremarkable as visualized. Bones/joints: Unremarkable. No acute fracture. Soft tissues: Unremarkable. IMPRESSION: No acute findings.
[2025-02-28 22:14] LABS: Hematocrit 37.0 % (37.0-47.0); Hemoglobin 11.3 g/dL (12.2-16.2); Immature Granulocytes % 0.5 %; Mean Corpuscular HGB Conc 30.5 g/dL (31.8-35.4); Mean Corpuscular Hemoglobin 22.3 pg (27.0-31.2); Mean Corpuscular Volume 73.1 fl (81-99); Nucleated Red Blood Cells % 0 %; Platelet Count 254 K/mm3 (142-424); Red Blood Count 5.06 M/mm3 (4.20-5.40); Red Cell Distribution Width-SD 49.2 fL; White Blood Count 8.7 K/mm3 (4.8-10.8)
[2025-02-28 22:16] LABS: Albumin Level 4.3 g/dl (3.5-5.0); Chloride 108 mmol/L (98-107); Potassium 4.3 mmoL/L (3.5-5.1); Sodium 134 mmol/L (136-145)
[2025-02-28 22:18] LABS: Blood Urea Nitrogen 26 mg/dl (7-17); Creatinine Clearance Estimated 66 mL/min (50-200); Creatinine,Serum 0.80 mg/dl (0.52-1.04); Estimated Glomerular Filt Rate 71 ml/min (>60); GFR (African American) 86 ML/MIN (>60)
[2025-02-28 22:19] LABS: Alanine Aminotransferase 23 U/L (12-78); Albumin/Globulin Ratio 1.3 (1.1-1.8); Alkaline Phosphatase 86 U/L (38-126); Anion Gap 11.3 mEq/L (5-15); Aspartate Amino Transferase 23 U/L (14-36); Bilirubin,Total 0.3 mg/dl (0.2-1.3); Calcium 9.2 mg/dl (8.4-10.2); Carbon Dioxide 19 mmol/L (22.0-30.0); Globulin 3.3 g/dL (1.3-3.2); Glucose 254 mg/dl (74-100); Lipase 96 U/L (23-300); Total Protein,Serum 7.6 g/dl (6.3-8.2)
--- NOTE | 2025-02-28 22:25 | HMH.EDGENADL ---
Discharge Plan Disposition Patient Disposition: Home, Self-Care Condition: Good Prescriptions Prescriptions: New amoxicillin-pot clavulanate 875-125 mg tablet 1 tab PO BID 10 Days Qty: 20 0RF (DME) Diabetic Socks Large Misc See Rx Instructions .Route Qty: 2 0RF Rx Instructions: As directed No Action nystatin 100,000 unit/gram powder 1 applic topical QID 14 Days Qty: 120 0RF ammonium lactate [AmLactin] 12 % lotion 1 applic topical QD-BID PRN (Reason: dry skin) Qty: 400 2RF ketoconazole 2 % foam 1 applic topical BID 28 Days Qty: 100 1RF insulin lispro protamin-lispro [Humalog Mix 75-25 KwikPen] 100 unit/mL (75-25) insulin pen 5 unit SQ BID Qty: 15 2RF insulin glargine U-300 conc [Toujeo SoloStar U-300 Insulin] 300 unit/mL (1.5 mL) insulin pen 12 unit SQ DAILY 90 Days Qty: 3.6 0RF (DME) pen needle, diabetic [Easy Comfort Pen Gardner] 32 gauge x 5/32 needle See Rx Instructions .Route Qty: 300 3RF Rx Instructions: As directed nystatin 100,000 unit/mL suspension 500,000 unit PO QID 14 Days Qty: 280 0RF Rx Instructions: administer 1/2 of dose in each side of the mouth budesonide 9 mg tablet,delayed and ext.release See Rx Instructions .ROUTE .COMPLEX Qty: 30 11RF Dose Instruction: TAKE ONE TABLET BY MOUTH EVERY DAY Rx Instructions: TAKE ONE TABLET BY MOUTH EVERY DAY dapagliflozin propanediol [Farxiga] 10 mg tablet 10 mg PO DAILY Qty: 90 3RF oxybutynin chloride 10 mg tablet extended release 24hr 10 mg PO DAILY Qty: 90 3RF calcium polycarbophil [FiberCon] 625 mg tablet 1,250 mg PO DAILY Qty: 60 0RF nystatin 100,000 unit/gram cream 1 applic topical QID Qty: 30 2RF atenolol 25 mg tablet See Rx Instructions .ROUTE .COMPLEX Qty: 30 3RF Dose Instruction: TAKE ONE TABLET BY MOUTH EVERY DAY Rx Instructions: TAKE ONE TABLET BY MOUTH EVERY DAY levothyroxine 50 mcg tablet See Rx Instructions .ROUTE .COMPLEX Qty: 30 3RF Dose Instruction: TAKE ONE TABLET BY MOUTH EVERY DAY FOR HYPOTHYROIDISM Rx Instructions: TAKE ONE TABLET BY MOUTH EVERY DAY FOR HYPOTHYROIDISM Rybelsus 3 mg tablet 3 mg PO DAILY 30 Days Qty: 30 0RF buspirone 10 mg tablet See Rx Instructions .ROUTE .COMPLEX Qty: 60 2RF Dose Instruction: TAKE ONE TABLET BY MOUTH TWICE DAILY Rx Instructions: TAKE ONE TABLET BY MOUTH TWICE DAILY metformin 850 mg tablet See Rx Instructions .ROUTE .COMPLEX Qty: 30 2RF Dose Instruction: TAKE ONE TABLET BY MOUTH EVERY DAY AT BEDTIME Rx Instructions: TAKE ONE TABLET BY MOUTH EVERY DAY AT BEDTIME potassium chloride 10 mEq capsule, extended release See Rx Instructions .ROUTE .COMPLEX Qty: 60 2RF Dose Instruction: TAKE ONE CAPSULE BY MOUTH TWICE DAILY Rx Instructions: TAKE ONE CAPSULE BY MOUTH TWICE DAILY sertraline 100 mg tablet See Rx Instructions .ROUTE .COMPLEX Qty: 30 2RF Dose Instruction: TAKE ONE TABLET BY MOUTH EVERY DAY Rx Instructions: TAKE ONE TABLET BY MOUTH EVERY DAY gabapentin 300 mg capsule 300 mg PO BID Qty: 60 0RF Pro Fe 180 mg iron capsule See Rx Instructions .ROUTE .COMPLEX Qty: 30 2RF Dose Instruction: TAKE ONE CAPSULE BY MOUTH EVERY DAY Rx Instructions: TAKE ONE CAPSULE BY MOUTH EVERY DAY rosuvastatin 20 mg tablet See Rx Instructions .ROUTE .COMPLEX Qty: 30 2RF Dose Instruction: TAKE ONE TABLET BY MOUTH EVERY NIGHT AT BEDTIME Rx Instructions: TAKE ONE TABLET BY MOUTH EVERY NIGHT AT BEDTIME pantoprazole 40 mg tablet,delayed release (DR/EC) See Rx Instructions .ROUTE .COMPLEX Qty: 30 2RF Dose Instruction: TAKE ONE TABLET BY MOUTH EVERY DAY Rx Instructions: TAKE ONE TABLET BY MOUTH EVERY DAY budesonide-formoterol [Symbicort] 80-4.5 mcg/actuation HFA aerosol inhaler See Rx Instructions .ROUTE .COMPLEX Qty: 10.2 2RF Dose Instruction: INHALE TWO PUFFS BY MOUTH TWICE DAILY Rx Instructions: INHALE TWO PUFFS BY MOUTH TWICE DAILY albuterol sulfate 90 mcg/actuation HFA aerosol inhaler See Rx Instructions .ROUTE .COMPLEX Qty: 17 2RF Dose Instruction: INHALE TWO PUFFS BY MOUTH EVERY 4 TO 6 HOURS NEEDED FOR SHORTNESS OF BREATH OR wheezing Rx Instructions: INHALE TWO PUFFS BY MOUTH EVERY 4 TO 6 HOURS NEEDED FOR SHORTNESS OF BREATH OR wheezing ciprofloxacin HCl 500 mg tablet 500 mg PO BID 7 Days Qty: 14 0RF (DME) Easy Touch Test Strip Strip See Rx Instructions .ROUTE .MEDSUPPLY Qty: 100 3RF Rx Instructions: As directed daily (DME) pen needle, diabetic [Easy Touch Pen Needle] 30 gauge x 5/16 needle See Rx Instructions .Route Qty: 100 3RF Rx Instructions: As directed (DME) lancets [Lancets,Ultra Thin] Misc See Rx Instructions .Route Qty: 100 3RF Rx Instructions: As directed tizanidine 4 mg tablet 4 mg PO Q8H PRN (Reason: for muscle spasm) Qty: 90 0RF alendronate 70 mg tablet 70 mg PO Q7D Qty: 4 0RF Creon 36,000-114,000- 180,000 unit capsule,delayed release(DR/EC) 1 cap PO .COMPLEX 30 Days Qty: 200 0RF Rx Instructions: 1 to 2 cap orally up to 5 times daily with meals/snacks; promethazine 25 mg tablet 25 mg PO BID PRN (Reason: for nausea/vomiting) Qty: 30 0RF Referrals Follow up/Referrals: Mari Carrero APRN [Primary Care Provider, Medical] - See instructions Activity Restrictions/Add. Instructions Additional Instructions/Restrictions: Take the antibiotics as prescribed for 10 days. Return to the emergency department for any acute or worsening symptoms. Clinical Impressions Clinical Impression: Acute exacerbation of chronic obstructive pulmonary disease, Pyelonephritis Instructions Patient Instructions: DI for Low Back Pain Print Language Print Language: [place] Discharge ED Provider: Ramona Beckford Adult HPI General Chief complaint: Back Pain/Injury Stated complaint: lungs are hurting, pain in kidney area Time Seen by Provider: 02/28/25 21:55 Mode of Arrival: Wheelchair Source of Information: Patient Description of Symptoms (Recalled from ER Triage Doc. by RN): Patient complains of lower back pain x1 month; states she decided to come in tonight because it hurst worse. states she is scheduled for a CT scan tomorrow; denies any difficulty urinating History of Present Illness HPI narrative: Patient is a 69-year-old female who presents to the emergency department with multiple complaints. States that she has bilateral pain near her and kidneys as well as abdominal pain and is feeling short of breath. Patient states that she has pain with urination but is not peeing more frequently. Patient denies any fevers. Patient denies any chest pain. Patient denies any vomiting or diarrhea. Does have a history of COPD, patient has been doing albuterol treatments at home. Patient denies any recent sick symptoms such as nasal congestion cough. Related Data Previous Rx's ?Medication ?Instructions ?Recorded budesonide 9 mg tablet,delayed and See Rx Instructions .Route 08/07/24 extended release .COMPLEX #30 tabs dapagliflozin propanediol 10 mg 10 mg PO DAILY #90 tabs 09/07/24 tablet (Farxiga) oxybutynin chloride 10 mg 10 mg PO DAILY #90 tabs 09/07/24 tablet,extended release 24 hr calcium polycarbophil 625 mg 1,250 mg (2 x 625 mg) PO DAILY #60 09/10/24 tablet (FiberCon) tabs nystatin 100,000 unit/gram topical 1 applic topical QID 14 days #120 09/19/24 powder grams nystatin 100,000 unit/gram topical 1 applic topical QID #30 grams 10/22/24 cream atenolol 25 mg tablet See Rx Instructions .Route 11/06/24 .COMPLEX #30 tabs levothyroxine 50 mcg tablet See Rx Instructions .Route 11/06/24 .COMPLEX #30 tabs ammonium lactate 12 % lotion 1 applic topical QD-BID PRN dry 11/27/24 (AmLactin) skin #400 grams ketoconazole 2 % topical foam 1 applic topical BID 4 weeks #100 11/27/24 grams semaglutide 3 mg tablet (Rybelsus) 3 mg PO DAILY 30 days #30 tabs 12/04/24 buspirone 10 mg tablet See Rx Instructions .Route 12/10/24 .COMPLEX #60 tabs metformin 850 mg tablet See Rx Instructions .Route 12/10/24 .COMPLEX #30 tabs potassium chloride 10 mEq See Rx Instructions .Route 12/10/24 capsule,extended release .COMPLEX #60 caps sertraline 100 mg tablet See Rx Instructions .Route 12/10/24 .COMPLEX #30 tabs gabapentin 300 mg capsule 300 mg PO BID #60 caps 12/28/24 albuterol sulfate 90 mcg/actuation See Rx Instructions .Route 01/08/25 aerosol inhaler .COMPLEX #17 grams budesonide-formoterol HFA 80 See Rx Instructions .Route 01/08/25 mcg-4.5 mcg/actuation aerosol .COMPLEX #10.2 grams inhaler (Symbicort) pantoprazole 40 mg tablet,delayed See Rx Instructions .Route 01/08/25 release .COMPLEX #30 tabs polysaccharide iron complex 180 mg See Rx Instructions .Route 01/08/25 iron capsule (Pro Fe) .COMPLEX #30 caps rosuvastatin 20 mg tablet See Rx Instructions .Route 01/08/25 .COMPLEX #30 tabs insulin glargine U-300 conc 300 12 unit (0.04 mL) SQ DAILY 90 days 01/16/25 unit/mL (1.5 mL) subcutaneous pen #3.6 mL (Toujeo SoloStar U-300 Insulin) insulin lispro protamine-lispro 5 unit (0.05 mL) SQ BID #15 mL 01/16/25 100 unit/mL (75-25) subcutaneous pen (Humalog Mix 75-25 KwikPen) nystatin 100,000 unit/mL oral 500,000 unit (5 mL) PO QID 14 days 01/16/25 suspension #280 mL pen needle, diabetic 32 gauge x #300 ea 01/16/25 (Easy Comfort Pen Gardner) ciprofloxacin HCl 500 mg tablet 500 mg PO BID 7 days #14 tabs 01/18/25 blood sugar diagnostic (Easy Touch #100 ea 01/21/25 Test Strip) lancets (Lancets,Ultra Thin) #100 ea 01/21/25 pen needle, diabetic 30 gauge x #100 ea 01/21/2507/27 (Easy Touch Pen Needle) alendronate 70 mg tablet 70 mg PO Q7D #4 tabs 02/05/25 tizanidine 4 mg tablet 4 mg PO Q8H PRN for muscle spasm 02/05/25 #90 tabs [id number] 1 cap PO .COMPLEX 30 days #200 caps 02/06/25 (pork)36,000-114,000-180k unit capsule,del rel (Creon) promethazine 25 mg tablet 25 mg PO BID PRN for 02/26/25 nausea/vomiting #30 tabs amoxicillin 875 mg-potassium 1 tab PO BID 10 days #20 tabs 03/01/25 clavulanate 125 mg tablet compression socks, large (Diabetic #2 ea 03/01/25 Socks Large) Allergies Allergy/AdvReac Type Severity Reaction Status Date / Time nickel Allergy Intermediate I-RASH Verified 01/16/25 15:11 silk Allergy Mild I-RASH Verified 01/16/25 15:11 cefaclor Allergy Unknown RASH/DIFF Verified 01/16/25 15:11 BREATHING ibuprofen Allergy Unknown NA-NAUSEA/V Verified 01/16/25 15:11 OMITING levofloxacin (From Levaquin) Allergy Unknown Unknown Verified 01/16/25 15:11 allergy reaction morphine Allergy Unknown BOTTOMS Verified 01/16/25 15:11 OUT UP nitrofurantoin (From Allergy Unknown Unknown Verified 01/16/25 15:11 MACROBID) allergy reaction Sulfa (Sulfonamide Allergy Unknown Unknown Verified 01/16/25 15:11 Antibiotics) allergy reaction PFSH PFSH Disclaimer: The information contained in this section may have been updated after the patient was seen, as this information can be updated by other users. Medical History (Updated 03/01/25 @ 00:23 by Ramona Beckford DO) Abdominal bloating Oral candidiasis Left flank pain Seborrheic dermatitis of scalp UTI (urinary tract infection) Hyperglycemia COVID-19 Acute exacerbation of chronic obstructive pulmonary disease (COPD) Acute cystitis Gastroenteritis due to norovirus Lymphocytic colitis Generalized abdominal pain Insomnia Increased urinary frequency Upper abdominal pain Abdominal cramping Dysuria Muscle cramping Constipation by delayed colonic transit Vomiting General weakness Colitis Colon wall thickening Abdominal pain ROM (right otitis media) Nausea Panic attack Chest pain Opioid overdose Shortness of breath Elevated erythrocyte sedimentation rate Asymptomatic COVID-19 virus infection Sebaceous cyst of labia UTI (urinary tract infection), bacterial Gram-negative bacterial infection Lower extremity edema Vomiting and diarrhea Chest pain Hypoxia Obesity Hypoxemia Community acquired pneumonia Acute exacerbation of chronic obstructive airways disease Bladder spasms Stress incontinence Abdominal pain Hypothyroidism Hypertension Type 2 diabetes mellitus Diarrhea History of COPD Pneumonia with cavity of lung Surgical History H/O left breast biopsy Hx of cholecystectomy History of Family History Sister Cancer metastasized all over body, doesn't know type or where it started. Stated it is curable Pancreatic cancer Social History Smoking Status: Current every day smoker tobacco type: cigarettes packs per day: 1 alcohol intake: never substance use type: denies use current occupational status: retired Travel in the last 8 weeks?: None household members: family and friend(s) housing: house caffeine: Yes Have you lived/traveled outside [place] in past 30 days?: No Contact w/someone who lives/traveled outside US past 30 days?: No Exposure to someone with infectious disease in past 14 days?: No Do you have a fever (greater than 100.4 F or 38 C)?: No Have you tested positive for COVID-19?: No Exposed to someone with COVID-19 in past 14 days?: No Do you have a sore throat?: No Do you have a cough?: No Do you have any weakness?: No Do you have any diarrhea?: No Are you experiencing any unusual bleeding?: No Do you have any muscle aches/pain?: No Do you have any abdominal pain?: No Are you experiencing loss of taste or smell?: No Other Medical History Have you received the Flu Vaccine for this season: No Have you received the Pneumonia Vaccine: Yes ROS Obtained: Yes All systems reviewed & no additional complaints except as documented and Yes Systems reviewed as appropriate & no additional complaints except as documented Physical Exam General General appearance: alert and in no apparent distress Head Head exam: atraumatic, normocephalic and normal inspection Eye Eye exam: Present normal appearance, PERRL and EOMI; Absent scleral icterus ENT ENT exam: Present normal exam and normal external ear exam Neck Neck exam: Present normal inspection and full ROM Chest Chest inspection: Present normal inspection and symmetric chest wall rise Respiratory Respiratory exam: Present normal lung sounds bilaterally; Absent respiratory distress or wheezes Cardiovascular Cardiovascular exam: Present regular rate, normal rhythm and normal heart sounds Abdominal Exam Abdominal exam: Present soft, distention and tenderness (midline abdominal tenderness); Absent guarding or rebound Extremities Exam Extremities exam: Present normal inspection and full ROM Back Exam Back exam: Present normal inspection, full ROM, CVA tenderness (R) and CVA tenderness (L) Neurological Exam Neurological exam: Present alert and oriented X3 Psychiatric Psychiatric exam: Present normal affect and normal mood Skin Skin exam: Present warm and dry Medical Decision Making Medical Records Medical records reviewed: Yes I reviewed the patient's medical records. Screening: Per USPSTF and CDC recommendations, given the prevalence of disease in our region, it is our hospital?s policy to screen for HIV and viral Hepatitis for all patients aged 18 and over and those with ongoing risk factors. Saad Inquiry Pt receiving controlled substance: No Vital Signs: 02/28/25 21:26 02/28/25 21:31 02/28/25 21:31 Temperature 97.9 F Temperature Source Oral Pulse Rate 89 86 Pulse Rate [Right Radial] 89 Respiratory Rate 16 Blood Pressure 165/78 H 154/73 H Blood Pressure [Right Arm] 165/78 H Blood Pressure Mean [Right Arm] 107 Blood Pressure Source [Right Arm] Automatic Cuff Blood Pressure Position [Right Arm] Supine 02 Sat by Pulse Oximetry 98 96 98 Oxygen Delivery Method Room Air 02/28/25 22:01 02/28/25 22:42 02/28/25 23:01 Temperature Temperature Source Pulse Rate 82 73 66 Pulse Rate [Right Radial] Respiratory Rate Blood Pressure 146/71 H 134/70 139/71 Blood Pressure [Right Arm] Blood Pressure Mean [Right Arm] Blood Pressure Source [Right Arm] Blood Pressure Position [Right Arm] 02 Sat by Pulse Oximetry 96 100 95 Oxygen Delivery Method 02/28/25 23:31 02/28/25 23:31 02/28/25 23:31 Temperature Temperature Source Pulse Rate 72 68 69 Pulse Rate [Right Radial] Respiratory Rate Blood Pressure 146/65 H Blood Pressure [Right Arm] Blood Pressure Mean [Right Arm] Blood Pressure Source [Right Arm] Blood Pressure Position [Right Arm] 02 Sat by Pulse Oximetry 95 Oxygen Delivery Method 02/28/25 23:41 03/01/25 00:00 Temperature Temperature Source Pulse Rate 71 85 Pulse Rate [Right Radial] Respiratory Rate Blood Pressure 157/79 H Blood Pressure [Right Arm] Blood Pressure Mean [Right Arm] Blood Pressure Source [Right Arm] Blood Pressure Position [Right Arm] 02 Sat by Pulse Oximetry 95 Oxygen Delivery Method Lab Data Lab results reviewed: Yes I reviewed the patient's lab results. Lab Results 02/28/25 21:35: WBC 8.7, RBC 5.06, Hgb 11.3 L, Hct 37.0, MCV 73.1 L, MCH 22.3 L, MCHC 30.5 L, RDW 19.6 H, Plt Count 254, MPV 9.5, Neut % (Auto) 67.8, Lymph % (Auto) 26.6, [place] % (Auto) 4.7, Eos % (Auto) 0.1, Baso % (Auto) 0.3, Neut # (Auto) 5.9, Lymph # (Auto) 2.3, [place] # (Auto) 0.4, Eos # (Auto) 0.0, Baso # (Auto) 0.0, Sodium 134 L, Potassium 4.3, Chloride 108 H, Carbon Dioxide 19 L, Anion Gap 11.3, BUN 26 H, Creatinine 0.80, Estimated Creat Clear 66, Estimated GFR 71, Est GFR ( Amer) 86, Glucose 254 H, Calcium 9.2, Total Bilirubin 0.3, AST 23, ALT 23, Alkaline Phosphatase 86, Troponin I < 0.01, NT-Pro-B Natriuret Pep 101, Total Protein 7.6, Albumin 4.3, Globulin 3.3 H, Albumin/Globulin Ratio 1.3, Lipase 96 02/28/25 22:56: VBG pH 7.37, VBG pCO2 40.8, VBG pO2 43.0 H, VBG HCO3 23.2, VBG Total CO2 24.4, VBG O2 Saturation 78.7 H, VBG Base Excess -2.1, VBG Lactic Acid 1.4, SARS-CoV-2 (PCR) Not detected, Influenza Type A (PCR) Not detected, Influenza Type B (PCR) Not detected, RSV (PCR) Not detected, Rhinovirus (PCR) Not detected 02/28/25 23:54: Urine Color Yellow, Urine Appearance Sl cloudy, Urine pH 6.5, Ur Specific [place] 1.010, Urine Protein Negative, Urine Glucose (UA) 3+, Urine Ketones Negative, Urine Blood Negative, Urine Nitrate Positive A, Urine Bilirubin Negative, Urine Urobilinogen 0.2, Ur Leukocyte Esterase Trace, Urine WBC 10-20, Ur Squamous Epith Cells 3-5, Urine Bacteria 1+, Urine Mucus Trace 02/28/25 21:35 02/28/25 21:35 Orders (Tests/Meds): ED MEDICATIONS Discontinued Medications Generic Name Dose Route Start Last Admin Trade Name Freq PRN Reason Stop Dose Admin Albuterol Sulfate 20 mg 02/28/25 23:31 02/28/25 23:41 Albuterol 0.083% 2.5 Mg/3 Ml Neb IH 02/28/25 23:32 20 mg ONCE ONE Administration Albuterol/Ipratropium 9 ml 02/28/25 22:40 02/28/25 23:31 Ipratropium/Albuterol 3 Ml Neb IH 02/28/25 22:41 9 ml ONCE ONE Administration Amoxicillin/Clavulanate Potassium 1 each 03/01/25 00:30 03/01/25 00:34 Amoxicillin/Clavulanate Potassium 875/125mg Tablet PO 03/01/25 00:31 1 each ONCE ONE Administration Magnesium Sulfate 2 gm in 50 mls @ 100 mls/hr 02/28/25 22:40 02/28/25 23:33 Magnesium Sulfate 2gm/50ml Premix IV 02/28/25 23:09 Infused ONCE ONE Infusion Iopamidol 70 ml 02/28/25 22:43 02/28/25 22:44 Iopamidol-370 (76%);100ml Bottle IV 02/28/25 22:44 70 ml ONCE ONE Administration Methylprednisolone Sodium Succinate 125 mg 02/28/25 22:40 02/28/25 23:04 Methylprednisolone Sod Succ 125mg Vial IV 02/28/25 22:41 125 mg ONCE ONE Administration Oxycodone HCl 5 mg 02/28/25 23:33 02/28/25 23:35 Oxycodone 5mg Immediate Release Tablet PO 02/28/25 23:34 5 mg ONCE ONE Administration Sodium Chloride 50 ml 02/28/25 22:43 02/28/25 22:44 0.9 % Sodium Chloride 50 Ml Vial IV 02/28/25 22:44 50 ml ONCE ONE Administration Sodium Chloride 10 ml 02/28/25 22:43 02/28/25 22:44 Sodium Chloride 0.9% 10ml Syr (Rad Only) IV 02/28/25 22:44 10 ml ONCE ONE Administration ORDERS Category Date Time Status CT abdomen pelvis w con Stat Cat Scan 02/28/25 22:[address] angio chest PE protocol Stat Cat Scan 02/28/25 22:07 Completed BNP [NT Pro Brain Natriuretic Pep.] Stat Lab 02/28/25 21:35 Completed CBC w/Auto Diff [Complete Blood Count Auto Diff] Stat Lab 02/28/25 21:35 Completed CMP [Comprehensive Metabolic Panel] Stat Lab 02/28/25 21:35 Completed Lipase Stat Lab 02/28/25 21:35 Completed Mini Respiratory Panel Stat Lab 02/28/25 22:56 Completed Trop I [Troponin I] Stat Lab 12/18/25 21:35 Completed Troponin I Q3H Lab 03/01/25 01:15 Ordered Troponin I Q3H Lab 03/01/25 04:15 Ordered UA [Urinalysis and Microscopic] Stat Lab 02/28/25 23:54 Completed Urine Culture Stat Micro 02/28/25 23:54 Received VBG [Venous Blood Gas] Stat RT 02/28/25 22:56 Completed Medical Decision Narrative: Patient is a 69-year-old female with a past medical history of COPD, type 2 diabetes, who presented to the emergency department with shortness of breath, back pain, abdominal pain. On arrival, patient was hemodynamically stable but patient was 90% on room air. Patient was otherwise afebrile. Differential includes but not limited to: Pneumonia, COPD exacerbation, urinary tract infection, pyelonephritis, pulmonary embolism, intra-abdominal process, amongst others. On exam, patient had significant wheezing and patient was coughing therefore patient was treated as a COPD exacerbation given her 90% room air oxygen saturation. Patient was given DuoNebs, magnesium and Solu-Medrol. Patient was given IV morphine for pain control. Labs were obtained as well as a CT scan of the chest and the abdomen. After COPD treatment, patient had improved air movement and had significantly more wheezing therefore patient was ordered 20 mg of albuterol. Patient CT PE showed no acute pathology. Patient CT abdomen pelvis showed no acute pathology. Since UA showed evidence of urinary tract infection and given patient's CVA tenderness, I suspect patient has a component of pyelonephritis. Patient's labs reviewed and interpreted by myself: CBC showed no leukocytosis, hemoglobin was stable. VBG was unremarkable. CMP was normal. Trop was unremarkable. BNP was normal. Given patient's multiple allergies, patient was given Augmentin for her urinary tract infection and pyelonephritis. Patient stated that she had taken penicillins without significant troubles in the past. Does have some swelling of her feet however patient has no swelling of her legs I suspect this is dependent in nature. I recommended the patient start using compression socks for her symptoms. I recommended the patient elevate her legs is much as possible at home. Also has an abdominal wall hernia and patient has pain when coughing therefore I recommended patient use an abdominal binder to help with this. At this time, patient was sent home with a prescription for Augmentin. Patient was not given prednisone to go home with as patient is a noncontrolled diabetic and patient had a last hemoglobin A1c of 13. Therefore I felt additional steroids were not beneficial at this time. Patient was otherwise discharged home in stable condition return precautions were discussed. Critical Care Critical Care Time Critical Care Time: No
[2025-02-28 22:32] LABS: Troponin I < 0.01 ng/ml (0.00-0.034)
[2025-02-28] MEDS: 0.9 % SODIUM CHLORIDE 50 ML VIAL IV (22:44)
[2025-02-28] MEDS: IOPAMIDOL-370 (76%);100ML BOTTLE 70 ML IV (22:44)
[2025-02-28] MEDS: SODIUM CHLORIDE 0.9% 10ML SYR (RAD ONLY) 10 ML IV (22:44)
--- NOTE | 2025-02-28 22:50 | ECG_ITS ---
APPROVED REPORT Exam: Resting ECG HR:69 bpm ECG Measurements Heart Rate 69 AXES MO 175 P 65 QRSd 96 QRS 51 QT 397 T 36 QTc 417 Conclusion Normal sinus rhythm without acute ST or T wave changes concerning for ischemia Electronically signed by : RAYMOND MAYER, 03/02/2025 01:20:41
[2025-02-28 23:01] LABS: NT Pro Brain Natriuretic Pep. 101 pg/mL (0-125)
[2025-02-28 23:01] LABS: Coronavirus 19, PCR Not Detected (NotDetected); Influenza A, PCR Not Detected (NotDetected); Influenza B, PCR Not Detected (NotDetected)
[2025-02-28] MEDS: MAGNESIUM SULFATE IN WATER 2 GM/50 ML PIGGYBACK IV (23:03)
[2025-02-28] MEDS: METHYLPREDNISOLONE SOD SUCC 125MG VIAL 125 MG IV (23:04)
[2025-02-28 23:06] LABS: Lactate Venous 1.4 mmol/L (0.4-2.0); VBG HCO3 23.2 mmol/L (23-30); VBG PCO2 40.8 mmol/L (35-51); VBG PH 7.37 mmol/L (7.31-7.41); VBG PO2 43.0 mmol/L (28-40)
[2025-02-28] MEDS: IPRATROPIUM/ALBUTEROL 3 ML NEB 9 ML IH (23:31)
[2025-02-28] MEDS: OXYCODONE 5MG IMMEDIATE RELEASE TABLET 5 MG PO (23:35)
[2025-02-28] MEDS: ALBUTEROL 0.083% 2.5 MG/3 ML NEB 20 MG IH (23:41)
[2025-02-28 23:57] LABS: Microscopic, Urine URINE MICROSCOPIC (MICROSCOPIC)
[2025-02-28 23:58] LABS: Bilirubin,Urine Negative (Negative); Color,Urine YELLOW (Yellow); Glucose,Urine (UA) 3+ (Negative); Ketones,Urine Negative (Negative); Leukocyte Esterase,Urine TRACE (Negative); PH,Urine 6.5 (5.0-8.5); Protein,Urine Negative (Negative); Specific Gravity, Urine 1.010 (1.005-1.030); Urobilinogen,Urine 0.2 EU/dl (0.2)
[2025-03-01] VITALS: BP 157/79; PULSE 85; O2SAT 95
[2025-03-01 00:12] LABS: Bacteria,Urine 1+ /lpf; Mucus,Urine Trace /lpf
[2025-03-01] MEDS: AMOXICILLIN/CLAVULANATE POTASSIUM 875/125MG TABLET 1 EACH PO (00:34)
[2025-03-01 00:51] VITALS: PULSE 72
[2025-03-01 00:57] VITALS: BP 146/83; PULSE 68; RESP 16; TEMP 36.6; O2SAT 96
== END 2025-03-01 01:17 | disposition home or self-care (01) ==
PROVIDERS: Emergency Provider Student in an Organized Health Care Education/Training Program; PCP Nurse Practitioner Family
DX: N10 Acute pyelonephritis (principal); J44.1 Chronic obstructive pulmonary disease with (acute) exacerbation; R10.84 Generalized abdominal pain; F17.210 Nicotine dependence, cigarettes, uncomplicated; E11.65 Type 2 diabetes mellitus with hyperglycemia; R30.0 Dysuria; Z79.4 Long term (current) use of insulin
CPT/HCPCS: 71275; 74177; 80053; 81001; 82803; 83690; 83880; 84484; 85025; 87077; 87086; 87631; 93005; 96365; 96375; 99285; J2919; J3475; Q9967